=== PATIENT | male | born 1965 | race African-American/Black ===

== ENCOUNTER → 2016-10-15 | Outpatient (CLI) | payer OTHER ==
[~2016-10-15] MED LIST: AMIT25TA PO; ASPI32ECTA PO; ATOR1TAB18 PO; CELE-19 PO; CHLO0.124 MT; CHLO125TA PO; CLAR10CA3 PO; DIVA500T3 PO; GABA300C3 PO; HYDR25T PO; LISI2.5T3 PO; LYRI100C10 PO; METH25IN5 IJ; NITR4TASL SL; PRED5TA PO; SPIR25TA2 PO; [UNRECOGNIZED DRUG - CODE] SC; [UNRECOGNIZED DRUG - OTHER] TOP; tps cream TOP
== END ==
LOC: M LAB 07:44
PROVIDERS: ATTEND Specialist
DX: E29.1 Testicular hypofunction (principal)

== ENCOUNTER → 2016-11-16 | Outpatient (REF) | payer OTHER | LOC: M LAB REF 10:22 | PROVIDERS: ATTEND Physician Assistant | DX: R63.4 Abnormal weight loss (principal); D12.2 Benign neoplasm of ascending colon; B96.81 Helicobacter pylori [H. pylori] as the cause of diseases classified elsewhere; R14.0 Abdominal distension (gaseous) ==

== ENCOUNTER → 2016-12-13 | Outpatient (CLI) | payer OTHER | LOC: M LAB 07:44 | PROVIDERS: ATTEND Physician Assistant Medical | DX: R56.9 Unspecified convulsions (principal) ==

== ENCOUNTER → 2017-02-03 | Outpatient (CLI) | payer OTHER ==
[~2017-02-03] MED LIST changes: +GABA-282 PO; -GABA300C3 PO
== END ==
LOC: M LAB 08:11
PROVIDERS: ATTEND Physician Assistant Medical
DX: Z79.899 Other long term (current) drug therapy (principal); R56.9 Unspecified convulsions

== ENCOUNTER → 2017-02-03 | Outpatient (CLI) | payer OTHER ==
[2017-02-03 09:23] LABS: ALBUMIN 3.5 GM/DL (3.2-5.2); ALKALINE PHOSPHATASE 65 U/L (45-117); ALT/SGPT 21 U/L (12-78); ANION GAP 8 MEQ/L (8-16); AST/SGOT 16 U/L (15-37); BILIRUBIN,TOTAL 0.5 MG/DL (0.2-1.0); BLOOD UREA NITROGEN 11 MG/DL (7-18); CALCIUM LEVEL 8.6 MG/DL (8.5-10.1); CARBON DIOXIDE LEVEL 33 MEQ/L (21-32); CHLORIDE LEVEL 98 MEQ/L (98-107); CHOLESTEROL LEVEL 203 MG/DL (<200); CREATININE FOR GFR 0.97 MG/DL (0.70-1.30); GLOMERULAR FILTRATION RATE > 60.0 (>56); GLUCOSE, FASTING 79 MG/DL (70-105); POTASSIUM SERUM 3.9 MEQ/L (3.5-5.1); SODIUM LEVEL 139 MEQ/L (136-145); TOTAL PROTEIN 7.4 GM/DL (6.4-8.2); TRIGLYCERIDES LEVEL 62 MG/DL (<150)
== END ==
LOC: M LAB 08:07
PROVIDERS: ATTEND Physician Assistant
DX: E78.00 Pure hypercholesterolemia, unspecified (principal); I25.10 Atherosclerotic heart disease of native coronary artery without angina pectoris; R56.9 Unspecified convulsions; Z79.899 Other long term (current) drug therapy

== ENCOUNTER → 2017-04-13 | Outpatient (CLI) | payer OTHER ==
[~2017-04-13] MED LIST changes: +ASPI325T24 PO; -ASPI32ECTA PO; -ATOR1TAB18 PO; +ATOR80TA59 PO; -CELE-19 PO; +CELE1CAP4 PO; +HYDR-3363 PO; -HYDR25T PO; -LYRI100C10 PO; +PREG100CA PO
[2017-04-13 12:31] LABS: ADD MORPHOLOGY? YES; BASO % 0.6 % (0.0-1.0); EOS % 0.8 % (0.0-3.0); LARGE UNSTAINED CELL # 0.1 K/mm3 (0.0-0.4); LARGE UNSTAINED CELL % 2.6 % (0.0-4.0); LYMPH # 1.1 K/mm3 (1.5-4.5); LYMPH % 21.9 % (24.0-44.0); MEAN CORPUSCULAR HEMOGLOBIN 31.9 pg (27.0-33.0); MEAN CORPUSCULAR VOLUME 93.6 fl (80.0-96.0); MONO # 0.3 K/mm3 (0.0-0.8); MONO % 6.5 % (0.0-5.0); NEUTROPHILS # 3.3 K/mm3 (1.8-7.7); NEUTROPHILS % 67.6 % (36.0-66.0); PLATELET COUNT, AUTOMATED 139 k/mm3 (150-450); RED CELL DISTRIBUTION WIDTH 15.6 % (11.5-14.5); WHITE BLOOD COUNT 4.8 K/mm3 (4.0-10.0)
== END ==
LOC: M LAB 11:57
PROVIDERS: ATTEND Physician Assistant Medical
DX: Z79.899 Other long term (current) drug therapy (principal)

== ENCOUNTER → 2017-08-12 | Outpatient (CLI) | payer MEDICARE, OTHER ==
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
== END ==
LOC: M PAIN 08:30
PROVIDERS: ATTEND Anesthesiology
DX: M47.816 Spondylosis without myelopathy or radiculopathy, lumbar region (principal); M47.817 Spondylosis without myelopathy or radiculopathy, lumbosacral region; M79.1 Myalgia; M54.2 Cervicalgia; G57.93 Unspecified mononeuropathy of bilateral lower limbs; G89.29 Other chronic pain; Z79.82 Long term (current) use of aspirin; Z79.899 Other long term (current) drug therapy; Z95.5 Presence of coronary angioplasty implant and graft; Z87.820 Personal history of traumatic brain injury
CPT/HCPCS: 36415; 80053; 80061; G0463

== ENCOUNTER → 2017-08-12 | Outpatient (CLI) | payer MEDICARE, OTHER ==
[2017-08-12 08:44] LABS: ALBUMIN 3.4 GM/DL (3.2-5.2); ALBUMIN/GLOBULIN RATIO 0.68 (1.00-1.93); ALKALINE PHOSPHATASE 64 U/L (45-117); ALT/SGPT 45 U/L (12-78); ANION GAP 5 MEQ/L (8-16); AST/SGOT 44 U/L (7-37); BLOOD UREA NITROGEN 11 MG/DL (7-18); CALCIUM LEVEL 8.7 MG/DL (8.5-10.1); CARBON DIOXIDE LEVEL 31 MEQ/L (21-32); CHLORIDE LEVEL 100 MEQ/L (98-107); CHOLESTEROL LEVEL 169 MG/DL (<200); CREATININE FOR GFR 0.88 MG/DL (0.70-1.30); GLOMERULAR FILTRATION RATE > 60.0 (>56); GLUCOSE, FASTING 89 MG/DL (70-105); POTASSIUM SERUM 4.1 MEQ/L (3.5-5.1); SODIUM LEVEL 136 MEQ/L (136-145); TOTAL PROTEIN 8.4 GM/DL (6.4-8.2); TRIGLYCERIDES LEVEL 64 MG/DL (<150)
== END ==
LOC: M LAB 07:44
PROVIDERS: ATTEND Physician Assistant
DX: I25.10 Atherosclerotic heart disease of native coronary artery without angina pectoris (principal); E78.00 Pure hypercholesterolemia, unspecified

== ENCOUNTER → 2017-08-29 | Outpatient (CLI) | payer MEDICARE, OTHER ==
[~2017-08-29] MED LIST changes: +BUPIVACAINE HCL 0.25% 30 ML VIAL As Ordered ONE; +ISOVUE-M 300 61% 15ML VIAL (Q9967) As Ordered ONE; +LIDOCAINE 1% SDV INJ 30 ML VIAL As Ordered ONE
--- NOTE | 2017-08-29 10:40 | REP ---
Partial lumbar spine series: Three views . History: Injection procedure for pain. 43 seconds of fluoroscopy time is reported. Findings: A sequence of three fluoroscopically obtained last image hold procedural spot radiographs of the lumbar spine document needle position and contrast injection associated with injection procedure. Signed by Arnaldo Jansen MD 08/29/2017 10:32 A
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
== END ==
LOC: M PAIN 08:30
PROVIDERS: ATTEND Anesthesiology
DX: G89.29 Other chronic pain (principal); M47.816 Spondylosis without myelopathy or radiculopathy, lumbar region; M47.817 Spondylosis without myelopathy or radiculopathy, lumbosacral region; M54.5 Low back pain; E78.5 Hyperlipidemia, unspecified; Z79.82 Long term (current) use of aspirin; Z79.899 Other long term (current) drug therapy; Z98.61 Coronary angioplasty status
CPT/HCPCS: 64493; 64494; Q9967

== ENCOUNTER → 2017-10-05 | Outpatient (CLI) | payer MEDICARE, OTHER ==
[2017-10-05 14:11] LABS: VALPROIC ACID (DEPAKOTE) 76.9 UG/ML (50.0-100.0)
== END ==
LOC: M LAB 13:03
DX: R56.9 Unspecified convulsions (principal)
CPT/HCPCS: 80164

== ENCOUNTER → 2018-07-28 | Outpatient (CLI) | payer MEDICARE, OTHER ==
[2018-07-28 09:29] LABS: VALPROIC ACID (DEPAKOTE) 85.4 UG/ML (50.0-100.0)
== END ==
LOC: M LAB 08:42
DX: R56.9 Unspecified convulsions (principal)
CPT/HCPCS: 80164

== ENCOUNTER → 2018-08-02 | Outpatient (CLI) | payer MEDICARE, OTHER ==
[2018-08-02 22:28] LABS: ALBUMIN 3.5 GM/DL (3.2-5.2); ALBUMIN/GLOBULIN RATIO 0.74 (1.00-1.93); ALKALINE PHOSPHATASE 66 U/L (45-117); ALT/SGPT 23 U/L (12-78); ANION GAP 9 MEQ/L (8-16); AST/SGOT 30 U/L (7-37); BILIRUBIN,TOTAL 0.7 MG/DL (0.2-1.0); BLOOD UREA NITROGEN 12 MG/DL (7-18); CALCIUM LEVEL 9.1 MG/DL (8.5-10.1); CARBON DIOXIDE LEVEL 27 MEQ/L (21-32); CHLORIDE LEVEL 97 MEQ/L (98-107); CHOLESTEROL LEVEL 237 MG/DL (<200); CHOLESTEROL RISK RATIO 2.604 (<5); CREATININE FOR GFR 0.94 MG/DL (0.70-1.30); GLOMERULAR FILTRATION RATE > 60.0 (>56); GLUCOSE, FASTING 83 MG/DL (70-100); HDL CHOLESTEROL 91 MG/DL (>40); LDL CHOLESTEROL 131 MG/DL (<100); NON-HDL-C 146 MG/DL; POTASSIUM SERUM 3.9 MEQ/L (3.5-5.1); SODIUM LEVEL 133 MEQ/L (136-145); TOTAL PROTEIN 8.2 GM/DL (6.4-8.2); TRIGLYCERIDES LEVEL 73 MG/DL (<150)
== END ==
LOC: M LAB 21:47
DX: I25.10 Atherosclerotic heart disease of native coronary artery without angina pectoris (principal); E78.00 Pure hypercholesterolemia, unspecified
CPT/HCPCS: 80053

== ENCOUNTER 2019-01-15 16:15 | Emergency (ER) | payer MEDICARE, OTHER ==
[~2019-01-15] VITALS: Ht 167.6 cm; Wt 63.6 kg
[~2019-01-15 16:15] MED LIST changes: +ASPI-255 PO; -ASPI325T24 PO; -BUPIVACAINE HCL 0.25% 30 ML VIAL As Ordered ONE; -DIVA500T3 PO; +DIVA500T94 PO; -GABA-282 PO; +GABA-843 PO; -ISOVUE-M 300 61% 15ML VIAL (Q9967) As Ordered ONE; -LIDOCAINE 1% SDV INJ 30 ML VIAL As Ordered ONE; +LISI-1046 PO; -LISI2.5T3 PO; +SPIR-10 PO; -SPIR25TA2 PO
[2019-01-15 16:16] VITALS: BP 103/59
[2019-01-15] MEDS ORDERED: REST0.05 (16:22)
[2019-01-15] MEDS ORDERED: NEOSPORIN OINT 0.9 GM PKT (FLOOR STOCK) TOP ONE (17:15)
== END 2019-01-15 17:35 | disposition home or self-care (01) ==
LOC: M ED 16:15
DX: Z48.02 Encounter for removal of sutures (principal); G62.9 Polyneuropathy, unspecified; E78.00 Pure hypercholesterolemia, unspecified; Z79.899 Other long term (current) drug therapy; Z79.82 Long term (current) use of aspirin

== ENCOUNTER → 2019-02-06 | Outpatient (CLI) | payer MEDICARE, OTHER ==
[~2019-02-06] MED LIST changes: +REST0.05
[2019-02-06 14:05] LABS: ALBUMIN 3.6 GM/DL (3.2-5.2); ALT/SGPT 48 U/L (12-78); BILIRUBIN,TOTAL 0.5 MG/DL (0.2-1.0); BLOOD UREA NITROGEN 12 MG/DL (7-18); CALCIUM LEVEL 8.4 MG/DL (8.5-10.1); CARBON DIOXIDE LEVEL 30 MEQ/L (21-32); CHLORIDE LEVEL 103 MEQ/L (98-107); CHOLESTEROL LEVEL 199 MG/DL (<200); CHOLESTEROL RISK RATIO 3.015 (<5); CREATININE FOR GFR 0.99 MG/DL (0.70-1.30); GLOMERULAR FILTRATION RATE > 60.0 (>56); GLUCOSE, FASTING 78 MG/DL (70-100); HDL CHOLESTEROL 66 MG/DL (>40); LDL CHOLESTEROL 103 MG/DL (<100); NON-HDL-C 133 MG/DL; POTASSIUM SERUM 4.6 MEQ/L (3.5-5.1); SODIUM LEVEL 141 MEQ/L (136-145); TOTAL PROTEIN 8.5 GM/DL (6.4-8.2); TRIGLYCERIDES LEVEL 152 MG/DL (<150)
== END ==
LOC: M LAB 12:43
PROVIDERS: ATTEND Physician Assistant
DX: I25.10 Atherosclerotic heart disease of native coronary artery without angina pectoris (principal); E78.00 Pure hypercholesterolemia, unspecified

== ENCOUNTER 2019-02-14 03:49 | Emergency (ER) | payer MEDICARE, OTHER ==
[2019-02-14 04:24] LABS: BASO % 0.7 % (0.0-1.0); EOS % 0.6 % (0.0-3.0); HEMATOCRIT 43.3 % (42.0-52.0); HEMOGLOBIN 14.6 g/dl (13.5-17.5); LYMPH # 2.2 10^3/uL (1.5-4.5); LYMPH % 40.4 % (24.0-44.0); MEAN CORPUSCULAR HEMOGLOBIN 32.3 pg (27.0-33.0); MEAN CORPUSCULAR HGB CONC 33.7 g/dl (32.0-36.5); MEAN CORPUSCULAR VOLUME 95.8 fl (80.0-96.0); MONO # 0.6 10^3/uL (0.0-0.8); MONO % 10.3 % (0.0-5.0); NEUTROPHILS # 2.6 10^3/uL (1.8-7.7); NEUTROPHILS % 47.8 % (36.0-66.0); PLATELET COUNT, AUTOMATED 127 10^3/uL (150-450); RED BLOOD COUNT 4.52 10^6/uL (4.30-6.10); WHITE BLOOD COUNT 5.4 10^3/uL (4.0-10.0)
[2019-02-14] MEDS ORDERED: NS 1,000 ML IV SCH (04:29)
[2019-02-14 04:35] LABS: INR 0.97
[2019-02-14 04:36] LABS: PARTIAL THROMBOPLASTIN TIME 24.9 SECONDS (25.4-37.6)
[2019-02-14] MEDS ORDERED: LIDO1PAD TOP (04:55)
[2019-02-14] MEDS ORDERED: [UNRECOGNIZED DRUG - CODE] IV (04:55)
[2019-02-14] MEDS ORDERED: DULO1CAP3 PO (04:55)
[2019-02-14] MEDS ORDERED: EZET10TA PO (04:55)
[2019-02-14] MEDS ORDERED: FOLI1TAB11 PO (04:55)
[2019-02-14] MEDS ORDERED: SILD50TA PO (04:55)
[2019-02-14] MEDS ORDERED: ACET1TAB55 PO (04:55)
[2019-02-14] MEDS ORDERED: ROSU10TA5 PO (04:55)
[2019-02-14] MEDS ORDERED: CALALOT4 TOP (04:55)
[2019-02-14] MEDS ORDERED: MECL1CHW PO (04:55)
[2019-02-14] MEDS ORDERED: ROPI0.5T PO (04:55)
[2019-02-14 04:58] LABS: BLOOD UREA NITROGEN 14 MG/DL (7-18); CALCIUM LEVEL 8.5 MG/DL (8.5-10.1); CARBON DIOXIDE LEVEL 24 MEQ/L (21-32); CHLORIDE LEVEL 90 MEQ/L (98-107); CREATININE FOR GFR 1.26 MG/DL (0.70-1.30); FREE T4 1.06 NG/DL (0.76-1.46); GLOMERULAR FILTRATION RATE > 60.0 (>56); GLUCOSE, FASTING 162 MG/DL (70-100); MAGNESIUM LEVEL 2.4 MG/DL (1.8-2.4); POTASSIUM SERUM 3.8 MEQ/L (3.5-5.1); SODIUM LEVEL 132 MEQ/L (136-145); VALPROIC ACID (DEPAKOTE) 6.2 UG/ML (50.0-100.0)
[2019-02-14] MEDS ORDERED: ASPIRIN 325 MG TAB PO ONE (05:15)
[2019-02-14 05:35] LABS: AMPHETAMINES LEVEL URINE NEGATIVE (NEGATIVE); BARBITURATES URINE NEGATIVE (NEGATIVE); BENZODIAZEPINES URINE NEGATIVE (NEGATIVE); CANNABINOIDS URINE NEGATIVE (NEGATIVE); COCAINE METABOLITE URINE NEGATIVE (NEGATIVE); METHADONE URINE NEGATIVE (NEGATIVE); OPIATES URINE NEGATIVE (NEGATIVE); PHENCYCLIDINE URINE NEGATIVE (NEGATIVE)
[2019-02-14] MEDS ORDERED: DIVALPROEX 500 MG TAB PO ONE (06:15)
[2019-02-14 06:24] VITALS: BP 126/81
--- NOTE | 2019-02-14 13:32 | ECGEPIP ---
Stationary ECG Study [facility] - ED Test Date: 2019-02-14 Pat Name: JOHN GROSSMAN Department: Room: - Gender: M Quality Assistant: lisa : 1965 Requested By: MARJORIE Murrell Order Number: [id number] Reading MD: Mel Au Measurements Intervals [place] Rate: 102 P: 81 IA: 157 QRS: 72 QRSD: 86 T: 68 QT: 333 QTc: 435 Interpretive Statements SINUS TACHYCARDIA NONSPECIFIC T-WAVE ABNORMALITY ABNORMAL RHYTHM ECG SIMILAR 12/09/14 Electronically Signed On 02-14-2019 13:32:30 EDT by Mel Au
== END 2019-02-14 06:32 | disposition home or self-care (01) ==
LOC: M ED 03:49
DX: G40.909 Epilepsy, unspecified, not intractable, without status epilepticus (principal); R00.0 Tachycardia, unspecified; R94.31 Abnormal electrocardiogram [ECG] [EKG]; I25.10 Atherosclerotic heart disease of native coronary artery without angina pectoris; I10 Essential (primary) hypertension; G62.9 Polyneuropathy, unspecified; D86.9 Sarcoidosis, unspecified; Z79.82 Long term (current) use of aspirin; Z79.899 Other long term (current) drug therapy

== ENCOUNTER 2019-05-02 18:46 | Emergency (ER) | payer MEDICARE, OTHER ==
[~2019-05-02] VITALS: Ht 165.1 cm; Wt 63.6 kg
[~2019-05-02 18:46] MED LIST changes: +ACET1TAB55 PO; +CALALOT4 TOP; +DULO1CAP6 PO; +EZET10TA21 PO; +FOLI1TAB11 PO; +LIDO1PAD TOP; +MECL1CHW PO; +ROPI0.5T PO; +ROSU10TA6 PO; +SILD50TA PO; +[UNRECOGNIZED DRUG - CODE] IV
[2019-05-02] MEDS ORDERED: NS 1,000 ML IV ONE (19:30)
[2019-05-02 19:34] LABS: BASO % 0.5 % (0.0-1.0); EOS % 0.1 % (0.0-3.0); HEMATOCRIT 48.4 % (42.0-52.0); HEMOGLOBIN 15.2 g/dl (13.5-17.5); LYMPH # 1.7 10^3/uL (1.5-4.5); LYMPH % 21.9 % (24.0-44.0); MEAN CORPUSCULAR HEMOGLOBIN 32.1 pg (27.0-33.0); MEAN CORPUSCULAR HGB CONC 31.4 g/dl (32.0-36.5); MEAN CORPUSCULAR VOLUME 102.3 fl (80.0-96.0); MONO # 0.8 10^3/uL (0.0-0.8); MONO % 9.7 % (0.0-5.0); NEUTROPHILS # 5.3 10^3/uL (1.8-7.7); NEUTROPHILS % 67.4 % (36.0-66.0); PLATELET COUNT, AUTOMATED 130 10^3/uL (150-450); RED BLOOD COUNT 4.73 10^6/uL (4.30-6.10); WHITE BLOOD COUNT 7.9 10^3/uL (4.0-10.0)
[2019-05-02 19:54] LABS: BLOOD UREA NITROGEN 9 MG/DL (7-18); CALCIUM LEVEL 9.1 MG/DL (8.5-10.1); CARBON DIOXIDE LEVEL 10 MEQ/L (21-32); CHLORIDE LEVEL 92 MEQ/L (98-107); CREATININE FOR GFR 1.79 MG/DL (0.70-1.30); GLOMERULAR FILTRATION RATE 51.1 (>56); GLUCOSE, FASTING 228 MG/DL (70-100); POTASSIUM SERUM 3.5 MEQ/L (3.5-5.1); SODIUM LEVEL 133 MEQ/L (136-145); VALPROIC ACID (DEPAKOTE) 4.7 UG/ML (50.0-100.0)
[2019-05-02] MEDS ORDERED: MULTIVITAMIN -ADULT INJECTION 10 ML, THIAMINE INJection 100 MG, FOLIC ACID 1 MG in NS 1... IV ONE (20:00)
[2019-05-02] MEDS ORDERED: VALPROATE SOD INJ 1,000 MG in D5W 50 ML IV ONE (20:00)
--- NOTE | 2019-05-02 20:02 | ECGEPIP ---
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
[2019-05-02 20:18] LABS: ETHYL ALCOHOL (ETHANOL) < 0.003 % (0.000-0.010)
[2019-05-02 22:00] VITALS: BP 145/87
== END 2019-05-02 22:17 | disposition home or self-care (01) ==
LOC: M ED 18:46
DX: G40.909 Epilepsy, unspecified, not intractable, without status epilepticus (principal); Z91.14 Patient's other noncompliance with medication regimen; R00.0 Tachycardia, unspecified; I51.7 Cardiomegaly; I10 Essential (primary) hypertension; Z86.59 Personal history of other mental and behavioral disorders; Z79.82 Long term (current) use of aspirin; Z79.899 Other long term (current) drug therapy
CPT/HCPCS: 80048; 80164; 85025; 93005; 96365; 96366; 96368; 99284; G0480; J3411

== ENCOUNTER → 2019-05-09 | Outpatient (CLI) | payer MEDICARE, OTHER ==
[~2019-05-09] MED LIST changes: +DEPA1TAB3 PO
--- NOTE | 2019-05-09 09:43 | REP ---
PARTIAL LUMBAR SPINE, TWO VIEWS: HISTORY: Disc symptoms. There is no acute fracture or subluxation. The L3-4 and L4-5 intervertebral discs are decreased in height consistent with disc degeneration. Osteophytes are present on L2-4. IMPRESSION: Degenerative change as described above. Electronically Signed by Mynor Gama MD 05/09/2019 09:49 A
--- NOTE | 2019-05-09 09:43 | REP ---
THORACIC SPINE, TWO VIEWS: HISTORY: Disc symptoms. There is no acute fracture or subluxation. The intervertebral discs are normal in height. IMPRESSION: There is no acute fracture or subluxation. Electronically Signed by Mynor Gama MD 05/09/2019 09:49 A
--- NOTE | 2019-05-09 09:45 | REP ---
PARTIAL CERVICAL SPINE, TWO VIEWS: HISTORY: Disc symptoms. There is no acute fracture or subluxation. The C5-6 and C6-7 intervertebral discs are decreased in height consistent with disc degeneration. Osteophytes are present on C5-7. There is loss of the normal lordotic curve. IMPRESSION: Degenerative change as described above. Electronically Signed by Mynor Gama MD 05/09/2019 09:49 A
== END ==
LOC: M RAD 08:01
PROVIDERS: ATTEND Chiropractor
DX: M25.78 Osteophyte, vertebrae (principal); M50.323 Other cervical disc degeneration at C6-C7 level; M51.36 Other intervertebral disc degeneration, lumbar region; M50.322 Other cervical disc degeneration at C5-C6 level

== ENCOUNTER → 2019-05-12 | Outpatient (CLI) | payer MEDICARE, OTHER | LOC: M LAB 11:18 | PROVIDERS: ATTEND Physician Assistant Medical | DX: G40.89 Other seizures (principal) ==

== ENCOUNTER 2019-08-27 13:43 | Emergency (ER) | payer MEDICARE, OTHER ==
[~2019-08-27] VITALS: Ht 167.6 cm; Wt 88.2 kg
[~2019-08-27 13:43] MED LIST changes: -DEPA1TAB3 PO
[2019-08-27 14:23] LABS: BASO % 0.5 % (0.0-1.0); EOS % 0.2 % (0.0-3.0); HEMATOCRIT 41.9 % (42.0-52.0); HEMOGLOBIN 13.7 g/dl (13.5-17.5); LYMPH % 33.1 % (24.0-44.0); MEAN CORPUSCULAR HEMOGLOBIN 30.9 pg (27.0-33.0); MEAN CORPUSCULAR HGB CONC 32.7 g/dl (32.0-36.5); MEAN CORPUSCULAR VOLUME 94.6 fl (80.0-96.0); PLATELET COUNT, AUTOMATED 132 10^3/uL (150-450); RED BLOOD COUNT 4.43 10^6/uL (4.30-6.10); WHITE BLOOD COUNT 5.7 10^3/uL (4.0-10.0)
[2019-08-27 14:24] LABS: LYMPH # 1.9 10^3/uL (1.5-5.0); MONO # 0.6 10^3/uL (0.0-0.8); NEUTROPHILS # 3.2 10^3/uL (1.5-8.5)
[2019-08-27 15:04] LABS: BLOOD UREA NITROGEN 6 MG/DL (7-18); CALCIUM LEVEL 9.2 MG/DL (8.5-10.1); CARBON DIOXIDE LEVEL 31 MEQ/L (21-32); CHLORIDE LEVEL 97 MEQ/L (98-107); CREATININE FOR GFR 0.94 MG/DL (0.70-1.30); ETHYL ALCOHOL (ETHANOL) < 0.003 % (0.000-0.010); FREE T4 0.87 NG/DL (0.76-1.46); GLOMERULAR FILTRATION RATE > 60.0 (>56); GLUCOSE, FASTING 110 MG/DL (70-100); MAGNESIUM LEVEL 1.4 MG/DL (1.8-2.4); POTASSIUM SERUM 3.9 MEQ/L (3.5-5.1); SODIUM LEVEL 136 MEQ/L (136-145); VALPROIC ACID (DEPAKOTE) 16.2 UG/ML (50.0-100.0)
--- NOTE | 2019-08-27 15:24 | REP ---
CT brain without contrast: History: Syncope. Comparison brain CT studies are from August 07, 2011 and September 02, 2008. Comparison MRI study January 17, 2012. CT findings: Digital preliminary ramp manager radiograph is unremarkable. Bone window settings demonstrate an intact bony calvarium. Visualized paranasal sinuses are clear. There is vascular calcification bilaterally in the distal carotid arteries. There is a small area of old encephalomalacia in the right inferior frontal lobe unchanged from multiple prior studies. There is mild generalized volume loss also unchanged. There is no evidence of intracranial hemorrhage. No new infarction is seen. No mass, extra-axial fluid collection, or midline shift is observed. The brain parenchyma is unchanged from August 07, 2011 and September 2008 prior studies. Impression: Small stable area of old encephalomalacia right inferior frontal lobe. Mild vascular calcification. No acute intracranial abnormality. Electronically Signed by Arnaldo Jansen MD 08/27/2019 03:50 P
[2019-08-27] MEDS ORDERED: DIVALPROEX 500 MG TAB PO ONE (16:15)
[2019-08-27 16:38] VITALS: BP 149/93
[2019-08-27 16:44] LABS: AMPHETAMINES LEVEL URINE NEGATIVE (NEGATIVE); BARBITURATES URINE NEGATIVE (NEGATIVE); BENZODIAZEPINES URINE NEGATIVE (NEGATIVE); CANNABINOIDS URINE NEGATIVE (NEGATIVE); COCAINE METABOLITE URINE NEGATIVE (NEGATIVE); METHADONE URINE NEGATIVE (NEGATIVE); OPIATES URINE NEGATIVE (NEGATIVE); PHENCYCLIDINE URINE NEGATIVE (NEGATIVE)
[2019-08-27] MEDS ORDERED: DEPA1TAB3 PO (17:15)
--- NOTE | 2019-08-27 19:57 | ECGEPIP ---
[facility] - ED Test Date: 2019-08-27 Pat Name: JOHN GROSSMAN Department: Room: - Gender: Male Park Attendant: CT : 1965 Requested By: Lila Bejarano PA-C Order Number: [id number] Reading MD: Rogelio Fernández Measurements Intervals [place] Rate: 88 P: 75 CA: 158 QRS: 69 QRSD: 85 T: 61 QT: 369 QTc: 447 Interpretive Statements SINUS RHYTHM NONSPECIFIC T-WAVE ABNORMALITY RATE CHANGE COMPARED TO 05/02/19 Electronically Signed on 08-27-2019 19:57:35 EST by Rogelio Fernández
== END 2019-08-27 17:18 | disposition home or self-care (01) ==
LOC: M ED 13:43
DX: G40.909 Epilepsy, unspecified, not intractable, without status epilepticus (principal); Z87.820 Personal history of traumatic brain injury; F10.10 Alcohol abuse, uncomplicated; Z79.899 Other long term (current) drug therapy; Z79.82 Long term (current) use of aspirin
CPT/HCPCS: 70450; 80048; 80164; 80307; 83735; 84439; 84443; 85025; 93005; 99284; G0480

== ENCOUNTER → 2019-10-22 | Outpatient (CLI) | payer MEDICARE, OTHER ==
[~2019-10-22] MED LIST changes: +DEPA1TAB3 PO
[2019-10-22 14:43] LABS: ALBUMIN 3.7 GM/DL (3.2-5.2); ALT/SGPT 49 U/L (12-78); BILIRUBIN,TOTAL 0.7 MG/DL (0.2-1.0); BLOOD UREA NITROGEN 10 MG/DL (7-18); CALCIUM LEVEL 8.6 MG/DL (8.5-10.1); CARBON DIOXIDE LEVEL 28 MEQ/L (21-32); CHLORIDE LEVEL 96 MEQ/L (98-107); CHOLESTEROL LEVEL 262 MG/DL (<200); CHOLESTEROL RISK RATIO 2.701 (<5); CREATININE FOR GFR 1.17 MG/DL (0.70-1.30); GLOMERULAR FILTRATION RATE > 60.0 (>56); GLUCOSE, FASTING 85 MG/DL (70-100); HDL CHOLESTEROL 97 MG/DL (>40); LDL CHOLESTEROL 145 MG/DL (<100); NON-HDL-C 165 MG/DL; POTASSIUM SERUM 3.9 MEQ/L (3.5-5.1); SODIUM LEVEL 136 MEQ/L (136-145); TOTAL PROTEIN 8.9 GM/DL (6.4-8.2); TRIGLYCERIDES LEVEL 101 MG/DL (<150)
== END ==
LOC: M LAB 13:17
PROVIDERS: ATTEND Physician Assistant
DX: I10 Essential (primary) hypertension (principal); G40.909 Epilepsy, unspecified, not intractable, without status epilepticus

== ENCOUNTER → 2019-10-22 | Outpatient (CLI) | payer MEDICARE, OTHER | LOC: M LAB 13:25 | PROVIDERS: ATTEND Physician Assistant Medical | DX: G40.909 Epilepsy, unspecified, not intractable, without status epilepticus (principal) ==

== ENCOUNTER 2019-11-15 11:38 | Emergency (ER) | payer MEDICARE, OTHER ==
[~2019-11-15] VITALS: Ht 180.3 cm; Wt 65.7 kg
[~2019-11-15 11:38] MED LIST changes: -ROPI0.5T PO; +ROPI0.5T3 PO
--- NOTE | 2019-11-15 12:36 | REP ---
Clinical: Trauma. Technique: Axial noncontrast images from the skull base to the thoracic inlet with coronal and sagittal re-formations. Findings: Straightening of normal lordosis noted along with early advanced degenerative disc osteophyte complex at C5-6 and C6-7. No acute fracture / compression injury or subluxation. Posterior elements and spinous processes are intact. Paravertebral soft tissues are normal. Impression: Degenerative changes primarily involving C5-6 seven and C6-7. No acute fracture / compression injury or subluxation. Electronically Signed by Jason Hahn MD 11/15/2019 12:27 P
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
[2019-11-15 13:53] LABS: BASO # 0.1 10^3/uL (0.0-0.2); BASO % 1.1 % (0.0-1.0); EOS % 0.2 % (0.0-3.0); HEMATOCRIT 40.2 % (42.0-52.0); HEMOGLOBIN 13.4 g/dl (13.5-17.5); LYMPH # 2.5 10^3/uL (1.5-5.0); LYMPH % 53.5 % (24.0-44.0); MEAN CORPUSCULAR HEMOGLOBIN 32.8 pg (27.0-33.0); MEAN CORPUSCULAR HGB CONC 33.3 g/dl (32.0-36.5); MEAN CORPUSCULAR VOLUME 98.5 fl (80.0-96.0); MONO # 0.8 10^3/uL (0.0-0.8); MONO % 16.3 % (0.0-5.0); NEUTROPHILS # 1.3 10^3/uL (1.5-8.5); NEUTROPHILS % 28.7 % (36.0-66.0); PLATELET COUNT, AUTOMATED 266 10^3/uL (150-450); RED BLOOD COUNT 4.08 10^6/uL (4.30-6.10); WHITE BLOOD COUNT 4.7 10^3/uL (4.0-10.0)
[2019-11-15 14:13] LABS: BLOOD UREA NITROGEN 10 MG/DL (7-18); CALCIUM LEVEL 8.7 MG/DL (8.5-10.1); CARBON DIOXIDE LEVEL 33 MEQ/L (21-32); CHLORIDE LEVEL 102 MEQ/L (98-107); CREATININE FOR GFR 1.06 MG/DL (0.70-1.30); ETHYL ALCOHOL (ETHANOL) 0.392 % (0.000-0.010); GLOMERULAR FILTRATION RATE > 60.0 (>56); GLUCOSE, FASTING 89 MG/DL (70-100); POTASSIUM SERUM 4.2 MEQ/L (3.5-5.1); SODIUM LEVEL 141 MEQ/L (136-145); VALPROIC ACID (DEPAKOTE) 69.7 UG/ML (50.0-100.0)
[2019-11-15] MEDS ORDERED: NS 1,000 ML IV ONE (14:15)
[2019-11-15 17:23] VITALS: BP 145/69
--- NOTE | 2019-11-16 04:54 | ECGEPIP ---
[facility] - ED Test Date: 2019-11-15 Pat Name: JOHN GROSSMAN Department: Room: - Gender: Male Toe Stapler: maxwell : 1965 Requested By: Rogelio Chao Order Number: [id number] Reading MD: Seth Soliman Measurements Intervals [place] Rate: 90 P: 69 [place]: 244 QRS: 64 QRSD: 101 T: 54 QT: 346 QTc: 424 Interpretive Statements SINUS RHYTHM WITH FIRST DEGREE AV BLOCK Inferior Q waves of uncertain significance Nonspecific T wave abnormality Similar to tracing done 08-27-19 Electronically Signed on 11-16-2019 4:54:28 EST by Seth Soliman
== END 2019-11-15 17:25 | disposition home or self-care (01) ==
LOC: M ED 11:38 → EDBD 11:38 → M ED 17:25
DX: F10.129 Alcohol abuse with intoxication, unspecified (principal); S01.81XA Laceration without foreign body of other part of head, initial encounter; W18.39XA Other fall on same level, initial encounter; Y92.89 Other specified places as the place of occurrence of the external cause; G40.909 Epilepsy, unspecified, not intractable, without status epilepticus; I10 Essential (primary) hypertension; Z79.899 Other long term (current) drug therapy; Z79.82 Long term (current) use of aspirin
CPT/HCPCS: 12013; 36415; 70450; 72125; 80048; 80164; 81001; 85025; 93005; 93041; 99284; G0480

== ENCOUNTER 2019-11-26 09:32 | Emergency (ER) | payer MEDICARE, OTHER ==
[~2019-11-26] VITALS: Ht 167.6 cm; Wt 66.6 kg
--- NOTE | 2019-11-26 10:43 | REP ---
Right tibia-fibula four views : There is no fracture or dislocation. Mineralization and joint spaces are normal. There are no calcifications or foreign bodies. Impression: Negative right tibia-fibula . Electronically Signed by Charan Mcpherson MD 11/26/2019 10:35 A
--- NOTE | 2019-11-26 11:06 | REP ---
Ankle four views: There is soft tissue edema circumferentially. Mineralization is normal. There is no fracture or dislocation. The joint spaces are unremarkable. There is no mortise widening. There are no calcifications or foreign bodies. Impression: Soft tissue edema. No fracture. Electronically Signed by Charan Mcpherson MD 11/26/2019 10:58 A
--- NOTE | 2019-11-26 11:34 | REP ---
Right lower extremity deep vein duplex ultrasonography: The deep veins demonstrate normal compression, normal Doppler color flow and normal Doppler waveforms with respiration and augmentation from the popliteal vein to the common femoral vein. Impression: There is no right lower extremity deep vein thrombus. Electronically Signed by Charan Mcpherson MD 11/26/2019 11:25 A
[2019-11-26 12:25] LABS: BASO % 0.8 % (0.0-1.0); EOS % 0.5 % (0.0-3.0); HEMATOCRIT 38.3 % (42.0-52.0); HEMOGLOBIN 12.5 g/dl (13.5-17.5); LYMPH # 1.6 10^3/uL (1.5-5.0); LYMPH % 42.1 % (24.0-44.0); MEAN CORPUSCULAR HEMOGLOBIN 32.5 pg (27.0-33.0); MEAN CORPUSCULAR HGB CONC 32.6 g/dl (32.0-36.5); MEAN CORPUSCULAR VOLUME 99.5 fl (80.0-96.0); MONO # 0.4 10^3/uL (0.0-0.8); MONO % 11.4 % (0.0-5.0); NEUTROPHILS # 1.7 10^3/uL (1.5-8.5); NEUTROPHILS % 44.9 % (36.0-66.0); PLATELET COUNT, AUTOMATED 173 10^3/uL (150-450); RED BLOOD COUNT 3.85 10^6/uL (4.30-6.10); WHITE BLOOD COUNT 3.8 10^3/uL (4.0-10.0)
[2019-11-26 12:52] LABS: ALBUMIN 3.3 GM/DL (3.2-5.2); ALT/SGPT 24 U/L (12-78); BILIRUBIN,DIRECT 0.2 MG/DL (0.0-0.2); BILIRUBIN,TOTAL 0.5 MG/DL (0.2-1.0); BLOOD UREA NITROGEN 8 MG/DL (7-18); C REACTIVE PROTEIN QUANTITATIV 0.64 MG/DL (0.00-0.30); CALCIUM LEVEL 8.8 MG/DL (8.5-10.1); CARBON DIOXIDE LEVEL 32 MEQ/L (21-32); CHLORIDE LEVEL 101 MEQ/L (98-107); CREATININE FOR GFR 0.95 MG/DL (0.70-1.30); GLOMERULAR FILTRATION RATE > 60.0 (>56); GLUCOSE, FASTING 79 MG/DL (70-100); POTASSIUM SERUM 4.1 MEQ/L (3.5-5.1); SODIUM LEVEL 138 MEQ/L (136-145); TOTAL PROTEIN 8.2 GM/DL (6.4-8.2)
[2019-11-26 13:00] LABS: ERYTHROCYTE SEDIMENTATION RATE 50 mm/hr (0-20)
[2019-11-26] MEDS ORDERED: NS 1,000 ML IV ONE (13:00)
[2019-11-26 14:43] VITALS: BP 141/84
== END 2019-11-26 15:13 | disposition home or self-care (01) ==
LOC: M ED 09:32
DX: S99.911A Unspecified injury of right ankle, initial encounter (principal); R60.0 Localized edema; W00.0XXA Fall on same level due to ice and snow, initial encounter; Y92.89 Other specified places as the place of occurrence of the external cause; R56.9 Unspecified convulsions; G62.9 Polyneuropathy, unspecified; Z87.820 Personal history of traumatic brain injury; Z79.899 Other long term (current) drug therapy; Z79.82 Long term (current) use of aspirin

== ENCOUNTER → 2019-11-28 | Outpatient (CLI) | payer MEDICARE, OTHER ==
--- NOTE | 2019-11-28 14:31 | REP ---
MRI RIGHT HIND FOOT AND ANKLE: HISTORY: Swelling and pain after a fall. Comparison radiographs are from November 26, 2019. TECHNIQUE: Axial, coronal and sagittal imaging planes are utilized. T1- and T2-weighted sequences are included with and without fat saturation. MRI FINDINGS: There is an obliquely oriented acute fracture of the distal fibula with 2 mm of posterior displacement, otherwise nondisplaced. There is associated soft-tissue swelling. There is mild marrow edema along the posterior surface of the distal tibia at the level of the ankle but no posterior tibial malleolar fracture is seen. No medial malleolar fracture is observed. The talar and calcaneal bone signal intensity is normal. No tarsal or metatarsal fracture is appreciated. The metatarsals and phalanges appear to be intact. There is an ankle joint effusion. The distal tips of the syndesmosis appears intact. There is some diffuse soft tissue edema in the distal calf circumferentially. There is some intramuscular edema in the distal calf as well. Peroneus longus and brevis tendons appear to be intact laterally. Tibialis posterior, flexor digitorum, and flexor hallicis longus tendons have an intact appearance medially. The Achilles tendon is unremarkable. Plantar fascia are smooth. The anterior talofibular ligament appears attenuated on T2-weighted scans. There is considerable surrounding edema. The posterior talofibular ligament has an intact appearance. Anterior inferior tibiofibular ligament is not well seen and may be disrupted. The posterior inferior tibiofibular ligament appears intact. Calcaneofibular ligament appears intact. Deltoid ligamentous complex is unremarkable. There is no osteochondral defect lesion in the tibial plafond or talar dome. IMPRESSION: Radiographically occult minimally displaced oblique fracture through the distal fibula. There is extensive edema in the distal calf and about the ankle. The ankle joint effusion is visible. There is evidence of partial tear of the anterior talofibular ligament. The anterior inferior tibiofibular ligament is poorly seen and may be disrupted as well. The distal tibiofibular syndesmosis appears to be intact. Electronically Signed by Arnaldo Jansen MD 11/28/2019 07:35 P
--- NOTE | 2019-11-28 14:39 | REP ---
MRI RIGHT CALF WITHOUT CONTRAST: HISTORY: Contusion right ankle. Comparison right tib/fib views November 26, 2019. TECHNIQUE: Axial coronal and sagittal T1- and T2-weighted scans were obtained. FINDINGS: There is diffuse edema throughout the subcutaneous space in the entire right calf from the knee to the ankle. There is some periosseous edema about the distal fibula and an obliquely oriented nondisplaced distal fibular fracture is seen. This was described in greater detail on the hind foot and ankle MRI study from this date. There is also some periosseous edema around the proximal fibula although no proximal fibular fracture is appreciated. I suspect a proximal fibular contusion as there is increased signal intensity on T2-weighted scans within the proximal fibula. No tibial fracture is appreciated. Skeletal muscle signal intensity is normal. IMPRESSION: Distal fibular fracture obliquely oriented. Bone contusion pattern in the proximal fibular head and proximal fibular diaphysis. No overt fracture seen proximally. No tibial fracture is appreciated. There is diffuse calf soft tissue swelling in the subcutaneous space circumferentially. Electronically Signed by Arnaldo Jansen MD 11/28/2019 07:35 P
== END ==
LOC: M RAD 11:48
PROVIDERS: ATTEND Orthopaedic Surgery Sports Medicine
DX: S90.01XA Contusion of right ankle, initial encounter (principal); W18.30XA Fall on same level, unspecified, initial encounter; Y92.9 Unspecified place or not applicable

== ENCOUNTER 2020-01-20 19:57 | Inpatient (IN) | payer MEDICARE, OTHER ==
[~2020-01-20] VITALS: Ht 167.6 cm; Wt 65.0 kg
[2020-01-20] MEDS ORDERED: MULTIVITAMIN -ADULT INJECTION 10 ML, THIAMINE INJection 100 MG, FOLIC ACID 1 MG in NS 1... IV ONE ×2 (20:00→23:30)
[2020-01-20] MEDS ORDERED: PHENobarbital INJ 65 MG/ML VIAL (J2560) IV STA ×3 (20:07→22:12)
[2020-01-20] MEDS ORDERED: ONDANSETRON 4MG/2ML VIAL As Ordered ONE (20:48)
[2020-01-20 20:49] LABS: BLOOD UREA NITROGEN 7 MG/DL (7-18); CALCIUM LEVEL 9.1 MG/DL (8.5-10.1); CARBON DIOXIDE LEVEL 13 MEQ/L (21-32); CHLORIDE LEVEL 94 MEQ/L (98-107); CREATININE FOR GFR 2.37 MG/DL (0.70-1.30); ETHYL ALCOHOL (ETHANOL) < 0.003 % (0.000-0.010); GLOMERULAR FILTRATION RATE 36.8 (>56); GLUCOSE, FASTING 172 MG/DL (70-100); POTASSIUM SERUM 5.3 MEQ/L (3.5-5.1); SODIUM LEVEL 131 MEQ/L (136-145); VALPROIC ACID (DEPAKOTE) 34.3 UG/ML (50.0-100.0)
[2020-01-20 20:59] LABS: BASO % 0.1 % (0.0-1.0); HEMATOCRIT 42.8 % (42.0-52.0); HEMOGLOBIN 14.4 g/dl (13.5-17.5); LYMPH # 0.3 10^3/uL (1.5-5.0); LYMPH % 2.2 % (24.0-44.0); MEAN CORPUSCULAR HEMOGLOBIN 31.9 pg (27.0-33.0); MEAN CORPUSCULAR HGB CONC 33.6 g/dl (32.0-36.5); MEAN CORPUSCULAR VOLUME 94.9 fl (80.0-96.0); MONO # 1.4 10^3/uL (0.0-0.8); MONO % 11.4 % (0.0-5.0); NEUTROPHILS # 10.1 10^3/uL (1.5-8.5); RED BLOOD COUNT 4.51 10^6/uL (4.30-6.10); WHITE BLOOD COUNT 11.9 10^3/uL (4.0-10.0)
[2020-01-20] MEDS ORDERED: ONDANSETRON 4MG/2ML VIAL IV ONE (21:00)
[2020-01-20] MEDS: VALPROIC ACID 250 MG CAP PO ONE ×2 (21:30→21:57)
--- NOTE | 2020-01-20 21:45 | REPVR ---
PROCEDURE INFORMATION: Exam: CT Head Without Contrast Exam date and time: 01/20/2020 9:33 PM Age: 54 years old Clinical indication: Pain; Headache; Additional info: Seiz TECHNIQUE: Imaging protocol: Computed tomography of the head without contrast. Radiation optimization: All CT scans at this facility use at least one of these dose optimization techniques: automated exposure control; mA and/or kV adjustment per patient size (includes targeted exams where dose is matched to clinical indication); or iterative reconstruction. COMPARISON: CT Head without contrast 11/15/2019 12:08 PM FINDINGS: Brain: No intracranial mass, mass effect or midline shift. No acute intracranial hemorrhage. No CT evidence of acute cortical infarct. Volume loss bilateral inferior frontal lobes likely prior trauma. Unchanged. Ventricles: Ventricles, cisterns, and sulci are normal in size for age. Bones/joints: No calvarial fracture or destructive process. Sinuses: Imaged paranasal sinuses are clear. Mastoid air cells: Mastoid air cells are normally aerated. Orbits: Imaged orbits are unremarkable. Soft tissues: No focal extracranial soft tissue swelling. IMPRESSION: 1. No acute or concerning focal intracranial abnormality. 2. Remote inferior frontal lobe volume loss bilaterally which may reflect posttraumatic encephalomalacia Electronically signed by: Evangelista Gomez On 01/20/2020 21:44:49 PM
[2020-01-20] MEDS ORDERED: VALPROATE SOD INJ 500 MG in D5W 50 ML IV ONE (22:15)
[2020-01-20 22:23] LABS: ALBUMIN 3.7 GM/DL (3.2-5.2); ALT/SGPT 81 U/L (12-78); BILIRUBIN,DIRECT < 0.1 MG/DL (0.0-0.2); BILIRUBIN,TOTAL 0.5 MG/DL (0.2-1.0); TOTAL PROTEIN 9.7 GM/DL (6.4-8.2)
[2020-01-20 22:32] LABS: MAGNESIUM LEVEL 3.8 MG/DL (1.8-2.4)
[2020-01-20 23:08] LABS: ACETONE/KETONE 6.09 MG/DL (<2.81); CALCIUM LEVEL 8.3 MG/DL (8.5-10.1); CREATININE FOR GFR 1.91 MG/DL (0.70-1.30); GLOMERULAR FILTRATION RATE 47.3 (>56); POTASSIUM SERUM 3.5 MEQ/L (3.5-5.1)
[2020-01-20] MEDS ORDERED: NS 1,000 ML IV SCH (23:27)
[2020-01-20] MEDS ORDERED: OXAZEPAM 10 MG CAP PO PRN (23:45)
[2020-01-20] MEDS ORDERED: LORazepam 2 MG/ML VIAL (J2060) IV PRN (23:45)
[2020-01-21] VITALS (7 sets, daily range): BP systolic 131–152; BP diastolic 66–95
[2020-01-21] MEDS ORDERED: ONDANSETRON 4MG/2ML VIAL IV ONE
[2020-01-21] MEDS ORDERED: ROSU40TA4 PO (00:04)
[2020-01-21] MEDS ORDERED: DIVA250T67 PO (00:04)
[2020-01-21] MEDS ORDERED: DIVA500T9 PO (00:04)
[2020-01-21] MEDS ORDERED: PATIENT COMMENTS (00:12)
[2020-01-21] MEDS ORDERED: DEXTROSE 50% 50 ML SYRINGE IV PRN (00:15)
[2020-01-21] MEDS ORDERED: GLUCAGON INJ 1MG VIAL SC PRN (00:15)
[2020-01-21] MEDS ORDERED: GLUCOSE 4GM CHEW TABLET PO PRN (00:15)
[2020-01-21] MEDS ORDERED: NITROGLYCERIN 0.4 MG SUBL TABLET SL PRN (00:30)
[2020-01-21] MEDS ORDERED: ACETAMINOPHEN 325 MG TAB PO PRN (00:30)
[2020-01-21] MEDS ORDERED: DIVA250T7 PO (00:45)
--- NOTE | 2020-01-21 00:46 | REPVR ---
PROCEDURE INFORMATION: Exam: US Retroperitoneal Limited, Kidneys Exam date and time: 01/21/2020 12:37 AM Age: 54 years old Clinical indication: Abnormal findings; Abnormal lab test; Abnormal kidney function lab tests; Additional info: Renal failure R/O hydronephrosis TECHNIQUE: Imaging protocol: Real-time ultrasound of the retroperitoneum with image documentation. Examination was focused on the kidneys. COMPARISON: No relevant prior studies available. FINDINGS: Right kidney measures 10.5 cm in length. Left kidney measures 11.1 cm in length. Renal parenchymal echotexture and cortical thickness are normal. No solid renal mass, cyst or hydronephrosis. No shadowing, echogenic foci suggestive of stones. Bladder is unremarkable. IMPRESSION: Unremarkable ultrasound of the kidneys and bladder. Electronically signed by: Evangelista Gomez On 01/21/2020 00:46:13 AM
[2020-01-21] MEDS: NS 1,000 ML IV SCH ×2 (01:08→09:17)
--- NOTE | 2020-01-21 02:14 | REP ---
Clinical: Seizures. Possible aspiration. Comparison: 04/07/2016. Findings: Chronic advanced emphysematous and pleuroparenchymal changes are again noted bilaterally and appear relatively similar to prior examination. No obvious acute focal consolidation or definite effusion. No pneumothorax. Mediastinum and cardiac silhouette are stable. Skeletal structures are intact. Impression: 1. Advanced emphysematous and pleuroparenchymal changes similar to prior examination. 2. No obvious focal consolidation or effusion. Electronically Signed by Jason Hahn MD 01/21/2020 02:05 A
[2020-01-21] MEDS ORDERED: ONDANSETRON 4MG/2ML VIAL IV PRN (04:00)
[2020-01-21 04:51] LABS: HEMATOCRIT 39.8 % (42.0-52.0); HEMOGLOBIN 13.8 g/dl (13.5-17.5); MEAN CORPUSCULAR HEMOGLOBIN 32.4 pg (27.0-33.0); MEAN CORPUSCULAR HGB CONC 34.7 g/dl (32.0-36.5); MEAN CORPUSCULAR VOLUME 93.4 fl (80.0-96.0); RED BLOOD COUNT 4.26 10^6/uL (4.30-6.10); WHITE BLOOD COUNT 9.1 10^3/uL (4.0-10.0)
[2020-01-21 05:14] LABS: PLATELET COUNT, AUTOMATED 51 10^3/uL (150-450)
[2020-01-21 05:19] LABS: HEMOGLOBIN A1c 4.9 %
[2020-01-21 05:20] LABS: BLOOD UREA NITROGEN 4 MG/DL (7-18); CALCIUM LEVEL 7.7 MG/DL (8.5-10.1); CARBON DIOXIDE LEVEL 26 MEQ/L (21-32); CHLORIDE LEVEL 104 MEQ/L (98-107); CHOLESTEROL LEVEL 250 MG/DL (<200); CHOLESTEROL RISK RATIO 1.953 (<5); CREATININE FOR GFR 1.37 MG/DL (0.70-1.30); GLOMERULAR FILTRATION RATE > 60.0 (>56); GLUCOSE, FASTING 84 MG/DL (70-100); HDL CHOLESTEROL 128 MG/DL (>40); LDL CHOLESTEROL 110 MG/DL (<100); NON-HDL-C 122 MG/DL; POTASSIUM SERUM 3.3 MEQ/L (3.5-5.1); SODIUM LEVEL 141 MEQ/L (136-145); THYROID STIMULATING HORMONE 0.423 uIU/ML (0.358-3.740); TRIGLYCERIDES LEVEL 61 MG/DL (<150); VALPROIC ACID (DEPAKOTE) 86.5 UG/ML (50.0-100.0)
[2020-01-21] MEDS ORDERED: POTASSIUM CHLORIDE 10 MEQ SR TABLET PO ONE (05:30)
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
[2020-01-21] MEDS: KCL 10MEQ/100ML SWI (KRUN) 10 MEQ in IV 1 EA IV SCH ×2 (09:17→10:28)
[2020-01-21] MEDS: ROSUVASTATIN 10 MG TAB (CRESTOR) PO SCH (09:21)
[2020-01-21] MEDS: DIVALPROEX 500MG *ER* TAB PO SCH ×2 (09:22→20:51)
[2020-01-21] MEDS: rOPINIRole 0.25 MG TAB(REQUIP) PO SCH ×2 (09:22→20:50)
[2020-01-21] MEDS: FOLIC ACID 1 MG TAB PO SCH (09:22)
[2020-01-21] MEDS: MULTIVITAMINS/MINERALS THERAP 1 TAB PO SCH (09:22)
[2020-01-21] MEDS: EZETIMIBE 10 MG TAB (ZETIA) PO SCH (09:22)
[2020-01-21] MEDS: ASPIRIN ENTERIC 325 MG TAB PO SCH (09:22)
[2020-01-21] MEDS: PREGABALIN 75 MG CAP(LYRICA) PO SCH ×2 (09:23→20:51)
[2020-01-21] MEDS: THIAMINE 100 MG TAB PO SCH (09:23)
[2020-01-21] MEDS: LORATADINE 10 MG TAB PO SCH (09:23)
[2020-01-21] MEDS: DIVALPROEX 250MG *ER* TAB PO SCH (09:39)
--- NOTE | 2020-01-21 10:08 | IPNPDOC ---
Subjective Date Seen The patient was seen on 01/21/20. Subjective Chief Complaint/HPI Patient is awake, alert, oriented 3. His speech, swallow was done today and restarted on feeding schedule for EEG today. No more seizures. Offers no new complaints General: Denies: ROS Unobtainable, Chills, Night Sweats, Fatigue, Malaise, Normal Appetite, Other Symptoms Constitutional: Denies: Chills, Fever, Malaise, Night Sweats, Weakness, Fatigue, Weight Loss, Lethargy, Other Eyes: Denies: Pain, Vision change, Conjunctivae inflammation, Eyelid inflammation, Redness, Other ENT: Denies: Head Aches, Ear Pain, Dysphagia, Sinus Congestion, Post Nasal Dr ip, Sore Throat, Epistaxis, Other Symptoms Pulmonary: Denies: Dyspnea, Cough, Pleuritic Chest Pain, Other Symptoms Cardiovascular: Denies: Chest Pain, Palpitations, Orthopnea, Paroxysmal Noc. Dyspnea, Edema, Lt Headedness, Other Symptoms Gastrointestinal: Denies: Nausea, Vomiting, Abdominal Pain, Diarrhea, Constipation, Melena, Hematochezia, Other Symptoms Musculoskeletal: Denies: Neck Pain, Back Pain, Shoulder Pain, Arm Pain, Hand Pain, Leg Pain, Foot Pain, Joint Pain, Muscle Pain, Spasms, Other Symptoms Neurological: Denies: Weakness, Numbness, Incoordination, Change in speech, Con fusion, Seizures, Other Symptoms Objective Physical Examination General Exam: Positive: Alert, Cooperative Eye Exam: Positive: PERRLA, Conjunctiva & lids normal ENT Exam: Positive: Atraumatic, Mucous membr. moist/pink Neck Exam: Positive: Supple Chest Exam: Positive: Clear to auscultation, Normal air movement Heart Exam: Positive: Rate Normal Abdomen Exam: Positive: Normal bowel sounds, Soft, Tenderness Extremity Exam: Positive: Normal pulses Skin Exam: Positive: Nl turgor and temperature Neuro Exam: Positive: Normal Speech, Strength at 5/5 X4 ext, Sensation Intact, Cranial Nerves 3-12 NL Psych Exam: Positive: Memory Intact, Oriented x 3 Assessment /Plan Problems (1) Alcohol withdrawal seizure with complication Status: Acute Problem Text: On admission, patient's valproic acid was very low. He was given phenobarbitone ED and also loaded with valproic acid 1 g Patient is currently on a telemetry unit being monitored clinically without any evidence of any new seizures He had a speech and swallow. Julianne has been started on soft diet as per orders Scheduled for EGD today On CIWA protocol with benzodiazepines Continue IV fluids. " banana bag", thiamine and multivitamin Possible discharge in the in 1-2 days Will order PT, OT evaluation today (2) Acute metabolic encephalopathy Status: Resolved Problem Text: Secondary to postictal state and alcohol induced seizures Patient is awake, alert, oriented 3 now and metabolic encephalopathy has resolved (3) Metabolic acidosis Status: Resolved Problem Text: Secondary to seizure episodes, but has completely resolved now Monitor serum electrolytes (4) JOSE DAVID (acute kidney injury) Status: Acute Problem Text: Most likely secondary to use of diuretics such as chlorthalidone and lisinopril and also vomiting and decreased oral intake Patient receive a hydration of normal saline 1 L in the ED His renal functions are improving. His BUN is 11, creatinine of 1.37 Continue IV fluids as per orders and repeat renal functions in a.m. (5) Alcohol abuse Status: Chronic Problem Text: History of alcohol abuse in the past and now Continue CIWA protocol as per orders Continue banana bag, thiamine, folic acid and multivitamin Plan/VTE VTE Prophylaxis Ordered?: Yes VS, I&O, 24H, Fishbone Vital Signs/I&O Vital Signs Date Time Temp Pulse Resp B/P (MAP) Pulse Ox O2 Delivery O2 Flow Rate FiO2 01/21/20 08:00 98.1 78 17 140/88 (105) 96 Room Air I&O- Last 24 Hours up to 6 AM 01/21/20 06:00 Intake Total 1566.2 ml Output Total 600 ml Balance 966.2 ml Laboratory Data 24H LABS Laboratory Tests 2 01/20/20 20:15: Anion Gap 24H, Glomerular Filtration Rate 36.8L, Calcium Level 9.1, Magnesium Level 3.8H, Total Bilirubin 0.5, Direct Bilirubin < 0.1, Aspartate Amino Transf (AST/SGOT) 293H, Alanine Aminotransferase (ALT/SGPT) 81H, Alkaline Phosphatase 115, Total Protein 9.7H, Albumin 3.7, Albumin/Globulin Ratio 0.62L, Valproic Acid (Depakene) Level 34.3L, Ethyl Alcohol Level < 0.003 01/20/20 20:51: Immature Granulocyte % (Auto) 1.3, Neutrophils (%) (Auto) 85.0H, Lymphocytes (%) (Auto) 2.2L, Monocytes (%) (Auto) 11.4H, Eosinophils (%) (Auto) 0.0, Basophils (%) (Auto) 0.1, Neutrophils # (Auto) 10.1H, Lymphocytes # (Auto) 0.3L, Monocytes # (Auto) 1.4H, Eosinophils # (Auto) 0.0, Basophils # (Auto) 0.0, Nucleated Red Blood Cells % (auto) 0.0 01/20/20 22:23: Anion Gap 16, Glomerular Filtration Rate 47.3L, Calcium Level 8.3L, Ammonia 13, B-Hydroxybutyrate 6.09H 01/21/20 04:07: Anion Gap 11, Glomerular Filtration Rate > 60.0, Calcium Level 7.7L, Valproic Ac id (Depakene) Level 86.5, Nucleated Red Blood Cells % (auto) 0.0, Immature Platelet Fraction 15.9H, Estimated Mean Plasma Glucose 94, Hemoglobin A1c 4.9, Triglycerides Level 61, Total Cholesterol 250H, LDL Cholesterol 110H, Non-HDL Cholesterol (LDL + VLDL) 122, Total HDL Cholesterol 128, Cholesterol/HDL Ratio 1.953, Thyroid Stimulating Hormone (TSH) 0.423 01/21/20 04:21: Bedside Glucose (Misc Panel) 84 CBC/BMP Laboratory Tests 01/20/20 20:15 01/20/20 20:51 01/20/20 22:23 01/21/20 04:07 MARLENE MAYERS MD Jan 21, 2020 10:08
[2020-01-21] MEDS ORDERED: OXAZEPAM 10 MG CAP PO PRN (14:00)
--- NOTE | 2020-01-21 19:06 | ECGEPIP ---
[facility] - ED Test Date: 2020-01-20 Pat Name: JOHN GROSSMAN Department: Room: [place] [address] Gender: Male Manager Regional: MAGALY : 1965 Requested By: CLOVER PRESCOTT Order Number: [id number] Reading MD: Mel Au Measurements Intervals [place] Rate: 107 P: 70 [place]: 171 QRS: 70 QRSD: 90 T: 23 QT: 329 QTc: 440 Interpretive Statements SINUS TACHYCARDIA POSSIBLE INFERIOR MYOCARDIAL INFARCTION, PROBABLY OLD ABNORMAL RHYTHM ECG INCREASED RATE 11/15/19 Electronically Signed on 01-21-2020 19:05:37 EDT by Mel Au
[2020-01-22] VITALS: BP 148/96
[2020-01-22] MEDS ORDERED: SLF 3 ML SYR IV PRN (00:15)
[2020-01-22 04:00] VITALS: BP 152/88
[2020-01-22 06:24] LABS: HEMATOCRIT 42.2 % (42.0-52.0); HEMOGLOBIN 13.7 g/dl (13.5-17.5); MEAN CORPUSCULAR HEMOGLOBIN 31.9 pg (27.0-33.0); MEAN CORPUSCULAR HGB CONC 32.5 g/dl (32.0-36.5); MEAN CORPUSCULAR VOLUME 98.1 fl (80.0-96.0); WHITE BLOOD COUNT 6.6 10^3/uL (4.0-10.0)
[2020-01-22] MEDS: SLF 3 ML SYR IV SCH ×2 (06:24→14:43)
[2020-01-22 06:39] LABS: BLOOD UREA NITROGEN 4 MG/DL (7-18); CALCIUM LEVEL 7.8 MG/DL (8.5-10.1); CARBON DIOXIDE LEVEL 28 MEQ/L (21-32); CHLORIDE LEVEL 102 MEQ/L (98-107); CREATININE FOR GFR 1.15 MG/DL (0.70-1.30); GLOMERULAR FILTRATION RATE > 60.0 (>56); GLUCOSE, FASTING 87 MG/DL (70-100); POTASSIUM SERUM 3.4 MEQ/L (3.5-5.1); SODIUM LEVEL 138 MEQ/L (136-145)
[2020-01-22 06:51] LABS: PLATELET COUNT, AUTOMATED 44 10^3/uL (150-450)
[2020-01-22] MEDS ORDERED: POTASSIUM CHLORIDE 10 MEQ SR TABLET PO ONE (07:45)
[2020-01-22 08:00] VITALS: BP 154/92
[2020-01-22] MEDS: PREGABALIN 75 MG CAP(LYRICA) PO SCH (08:50)
[2020-01-22] MEDS: ASPIRIN ENTERIC 325 MG TAB PO SCH (08:50)
[2020-01-22] MEDS: DIVALPROEX 500MG *ER* TAB PO SCH (08:50)
[2020-01-22] MEDS: DIVALPROEX 250MG *ER* TAB PO SCH (08:50)
[2020-01-22] MEDS: FOLIC ACID 1 MG TAB PO SCH (08:53)
[2020-01-22] MEDS: rOPINIRole 0.25 MG TAB(REQUIP) PO SCH (08:53)
[2020-01-22] MEDS: LORATADINE 10 MG TAB PO SCH (08:54)
[2020-01-22] MEDS: EZETIMIBE 10 MG TAB (ZETIA) PO SCH (08:54)
[2020-01-22] MEDS: MULTIVITAMINS/MINERALS THERAP 1 TAB PO SCH (08:54)
[2020-01-22] MEDS: THIAMINE 100 MG TAB PO SCH (08:54)
[2020-01-22] MEDS: ROSUVASTATIN 10 MG TAB (CRESTOR) PO SCH (08:54)
[2020-01-22] MEDS ORDERED: POTASSIUM CHLORIDE 10% LIQ 20 MEQ/15 ML UDC PO ONE (10:00)
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
== END 2020-01-22 15:05 | disposition home or self-care (01) | DRG 101 ==
LOC: EDBD 19:57 → M ED 19:57 → M ED INP 23:27 → ENRESERVDT 23:43 → ENRESERVTM 23:43 → M PCU 01-21 00:37
PROVIDERS: ADMIT General Practice; ATTEND Internal Medicine
DX: G40.909 Epilepsy, unspecified, not intractable, without status epilepticus (principal); N17.9 Acute kidney failure, unspecified; E87.2 Acidosis; F10.188 Alcohol abuse with other alcohol-induced disorder; I25.10 Atherosclerotic heart disease of native coronary artery without angina pectoris; I25.2 Old myocardial infarction; D86.9 Sarcoidosis, unspecified; E78.5 Hyperlipidemia, unspecified; N52.9 Male erectile dysfunction, unspecified; G25.81 Restless legs syndrome; E86.0 Dehydration; R13.10 Dysphagia, unspecified; E87.5 Hyperkalemia; G62.9 Polyneuropathy, unspecified; E29.1 Testicular hypofunction; M47.816 Spondylosis without myelopathy or radiculopathy, lumbar region; M51.26 Other intervertebral disc displacement, lumbar region; Z79.82 Long term (current) use of aspirin; Z79.899 Other long term (current) drug therapy; Z95.5 Presence of coronary angioplasty implant and graft; Z87.820 Personal history of traumatic brain injury

== ENCOUNTER → 2020-02-04 | Outpatient (CLI) | payer MEDICARE, OTHER ==
[~2020-02-04] MED LIST changes: +DIVA250T67 PO; +DIVA250T7 PO; +DIVA500T9 PO; +PATIENT COMMENTS; +ROSU40TA4 PO
[2020-02-04 07:59] LABS: ALBUMIN 3.8 GM/DL (3.2-5.2); ALT/SGPT 73 U/L (12-78); BILIRUBIN,TOTAL 1.8 MG/DL (0.2-1.0); BLOOD UREA NITROGEN 10 MG/DL (7-18); CALCIUM LEVEL 9.2 MG/DL (8.5-10.1); CARBON DIOXIDE LEVEL 28 MEQ/L (21-32); CHLORIDE LEVEL 94 MEQ/L (98-107); CHOLESTEROL LEVEL 316 MG/DL (<200); CREATININE FOR GFR 1.14 MG/DL (0.70-1.30); GLOMERULAR FILTRATION RATE > 60.0 (>56); GLUCOSE, FASTING 104 MG/DL (70-100); HDL CHOLESTEROL 130 MG/DL (>40); LDL CHOLESTEROL 169 MG/DL (<100); NON-HDL-C 186 MG/DL; POTASSIUM SERUM 3.6 MEQ/L (3.5-5.1); SODIUM LEVEL 129 MEQ/L (136-145); TOTAL PROTEIN 10.3 GM/DL (6.4-8.2); TRIGLYCERIDES LEVEL 84 MG/DL (<150)
== END ==
LOC: M LAB 07:01
PROVIDERS: ATTEND Physician Assistant
DX: I25.10 Atherosclerotic heart disease of native coronary artery without angina pectoris (principal); E78.00 Pure hypercholesterolemia, unspecified; I10 Essential (primary) hypertension

== ENCOUNTER → 2020-02-12 | Outpatient (CLI) | payer MEDICARE, OTHER ==
[~2020-02-12] MED LIST changes: +ACET1TAB55 GT; -ACET1TAB55 PO; -AMIT25TA PO; +AMIT25TA17 PO; +ASCO500T GT; +ASPI1CHW3 GT; +BISA10SU27 PR; +CARV6.25 PO; +CEFT1INJ5 IM; +CHLO25TA PO; +D31000TA2 GT; +DEPA250T2 PO; +DEPA500T2 PO; +ENEMENE PR; +EZET10TA21 GT; -EZET10TA21 PO; +FOLI1TAB11 GT; +GABA-282 PO; -GABA-843 PO; +GNPSOL OU; +HYDR-4570 PO; +JEVILIQ7 GT; +KEPP250T5 PO; -LISI-1046 PO; +LISI2.5T2 PO; +LYRI200C PO; +MECL-86 PO; +METH50IN8 SC; +METO25TA4 GT; +MILKSUS3 GT; +MODA200T15 GT; +MULTCAP PO; +OXCA300S3 GT; +PROTPAK GT; +REST0.05 OU; +ROPI1TAB3 GT; +SENN15UDC GT; +THERTAB52 GT; +THIA100T7 GT; +THIA100T7 PO; +THIA100TA PO; +TRIL1TAB PO; +VITMTA PO; +ZINC100T3 GT; +[UNRECOGNIZED DRUG - CODE] OU
== END ==
LOC: M LABSMTC 13:49
PROVIDERS: ATTEND Family Medicine
DX: Z11.59 Encounter for screening for other viral diseases (principal); Z20.828 Contact with and (suspected) exposure to other viral communicable diseases
CPT/HCPCS: C9803; U0003

== ENCOUNTER → 2020-02-18 | Outpatient (CLI) | payer MEDICARE, OTHER ==
[~2020-02-18] MED LIST changes: -ACET1TAB55 GT; +ACET1TAB55 PO; +AMIT25TA PO; -AMIT25TA17 PO; -ASCO500T GT; -ASPI1CHW3 GT; -BISA10SU27 PR; -CARV6.25 PO; -CEFT1INJ5 IM; -CHLO25TA PO; -D31000TA2 GT; -DEPA250T2 PO; -DEPA500T2 PO; -ENEMENE PR; -EZET10TA21 GT; +EZET10TA21 PO; -FOLI1TAB11 GT; -GABA-282 PO; +GABA-843 PO; -GNPSOL OU; -HYDR-4570 PO; -JEVILIQ7 GT; -KEPP250T5 PO; -LYRI200C PO; -MECL-86 PO; -METH50IN8 SC; -METO25TA4 GT; -MILKSUS3 GT; -MODA200T15 GT; -MULTCAP PO; -OXCA300S3 GT; -PROTPAK GT; -REST0.05 OU; -ROPI1TAB3 GT; -SENN15UDC GT; -THERTAB52 GT; -THIA100T7 GT; -THIA100T7 PO; -THIA100TA PO; -TRIL1TAB PO; -VITMTA PO; -ZINC100T3 GT; -[UNRECOGNIZED DRUG - CODE] OU
[2020-02-18 14:40] LABS: ALBUMIN 3.6 GM/DL (3.2-5.2); BILIRUBIN,DIRECT 0.3 MG/DL (0.0-0.2); BILIRUBIN,TOTAL 0.8 MG/DL (0.2-1.0); TOTAL PROTEIN 8.9 GM/DL (6.4-8.2)
== END ==
LOC: M LAB 12:36
PROVIDERS: ATTEND Physician Assistant
DX: E78.00 Pure hypercholesterolemia, unspecified (principal)

== ENCOUNTER → 2020-03-02 | Outpatient (CLI) | payer MEDICARE, OTHER ==
[2020-03-02 09:53] LABS: ALBUMIN 3.5 GM/DL (3.2-5.2); BILIRUBIN,DIRECT 0.2 MG/DL (0.0-0.2); BILIRUBIN,TOTAL 0.3 MG/DL (0.2-1.0); TOTAL PROTEIN 8.3 GM/DL (6.4-8.2)
== END ==
LOC: M LAB 09:08
PROVIDERS: ATTEND Physician Assistant
DX: E78.00 Pure hypercholesterolemia, unspecified (principal)

== ENCOUNTER 2020-03-17 08:45 | Inpatient (IN) | payer MEDICARE, OTHER ==
[~2020-03-17] VITALS: Ht 172.7 cm; Wt 60.8 kg
[2020-03-17] MEDS ORDERED: NS 1,000 ML IV SCH (08:48)
[2020-03-17] MEDS ORDERED: ONDANSETRON 4MG/2ML VIAL As Ordered ONE (08:53)
[2020-03-17] MEDS ORDERED: ONDANSETRON 4MG/2ML VIAL IV ONE ×2 (09:00→10:15)
[2020-03-17 09:27] LABS: BASO # 0.1 10^3/uL (0.0-0.2); BASO % 0.5 % (0.0-1.0); EOS % 0.1 % (0.0-3.0); HEMATOCRIT 47.1 % (42.0-52.0); HEMOGLOBIN 14.2 g/dl (13.5-17.5); LYMPH # 6.3 10^3/uL (1.5-5.0); MEAN CORPUSCULAR HEMOGLOBIN 32.1 pg (27.0-33.0); MEAN CORPUSCULAR HGB CONC 30.1 g/dl (32.0-36.5); MEAN CORPUSCULAR VOLUME 106.6 fl (80.0-96.0); MONO # 0.9 10^3/uL (0.0-0.8); MONO % 7.9 % (0.0-5.0); NEUTROPHILS # 3.4 10^3/uL (1.5-8.5); NEUTROPHILS % 31.8 % (36.0-66.0); RED BLOOD COUNT 4.42 10^6/uL (4.30-6.10)
[2020-03-17 09:28] LABS: PLATELET COUNT, AUTOMATED 86 10^3/uL (150-450); WHITE BLOOD COUNT 10.8 10^3/uL (4.0-10.0)
[2020-03-17] MEDS ORDERED: HYDR-4570 PO (09:34)
--- NOTE | 2020-03-17 09:50 | REP ---
REASON: Status epilepticus. COMPARISON: 01/20/2020 There are chronic opacities status quo with chronic CP angle blunting bilaterally status quo. The technique utilized in obtaining the radiograph has magnified the cardiac silhouette and accentuated the interstitial markings. IMPRESSION: No change. Electronically Signed by Ed Velez DO 03/17/2020 04:01 P
[2020-03-17 09:51] LABS: ALBUMIN 3.7 GM/DL (3.2-5.2); ALT/SGPT 52 U/L (12-78); BILIRUBIN,DIRECT 0.6 MG/DL (0.0-0.2); BILIRUBIN,TOTAL 1.7 MG/DL (0.2-1.0); BLOOD UREA NITROGEN 9 MG/DL (7-18); CALCIUM LEVEL 9.2 MG/DL (8.5-10.1); CARBON DIOXIDE LEVEL 8 MEQ/L (21-32); CHLORIDE LEVEL 97 MEQ/L (98-107); CREATININE FOR GFR 1.51 MG/DL (0.70-1.30); GLOMERULAR FILTRATION RATE > 60.0 (>56); GLUCOSE, FASTING 157 MG/DL (70-100); MAGNESIUM LEVEL 3.1 MG/DL (1.8-2.4); PHOSPHORUS LEVEL 4.6 MG/DL (2.5-4.9); POTASSIUM SERUM 3.7 MEQ/L (3.5-5.1); SODIUM LEVEL 137 MEQ/L (136-145); TOTAL PROTEIN 10.2 GM/DL (6.4-8.2)
[2020-03-17 10:33] LABS: ABG BASE EXCESS -11.4 (-2.0-2.0); ABG HCO3 13.6 MEQ/L (22.0-26.0); ABG O2 SATURATION 91.4 % (95.0-99.0); ABG PARTIAL PRESSURE CO2 28.8 mmHg (35.0-45.0); ABG PARTIAL PRESSURE O2 69.9 mmHg (75.0-100.0); ABG STANDARD HCO3 15.5 MEQ/L (22.0-26.0); ABG TOTAL CO2 14.5 MEQ/L (22.0-29.0); ABG pH (ARTERIAL) 7.292 UNITS (7.350-7.450)
[2020-03-17] MEDS ORDERED: LORazepam 2 MG/ML VIAL IV STA (10:33)
--- NOTE | 2020-03-17 10:45 | REP ---
CT BRAIN WITHOUT CONTRAST: HISTORY: Status epilepticus. Comparison head CT study January 20, 2020. CT FINDINGS: Preliminary digital gear grinder radiograph is unremarkable. Bone windows settings demonstrate an intact bony calvarium. There is some vascular calcification in the distal internal carotid arteries. Minimal motion artifact is seen. There is no evidence of intracranial hemorrhage. There is mild generalized volume loss as before. There is an area of old encephalomalacia in the inferior aspect of the frontal lobe and inferior temporal lobe on the right unchanged from the comparison study. No new infarct or mass is seen. No extra-axial fluid collection is noted. IMPRESSION: Old encephalomalacia right inferior frontal lobe unchanged from comparison study. Minimal vascular calcification. No acute intracranial abnormality. Electronically Signed by Arnaldo Jansen MD 03/17/2020 02:55 P
[2020-03-17 10:51] LABS: OSMOLALITY SERUM 326 MOSM/KG (275-295)
[2020-03-17 10:54] LABS: ACETONE/KETONE 3.18 MG/DL (<2.81)
[2020-03-17] MEDS ORDERED: DIVA250T7 PO (11:33)
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
[2020-03-17] MEDS ORDERED: PRED5TA PO (12:46)
[2020-03-17] MEDS ORDERED: CHLO25TA PO (12:46)
[2020-03-17] MEDS ORDERED: MECL-86 PO (12:46)
[2020-03-17] MEDS ORDERED: LYRI200C PO (12:46)
[2020-03-17] MEDS ORDERED: METH50IN8 SC (12:46)
[2020-03-17] MEDS ORDERED: hydrOXYzine 25 MG TAB PO PRN (13:00)
[2020-03-17] MEDS ORDERED: MECLIZINE 25 MG TABLET PO PRN (13:00)
[2020-03-17] MEDS ORDERED: LORazepam 2 MG/ML VIAL IV PRN (13:45)
[2020-03-17 14:00] VITALS: BP 127/80
[2020-03-17] MEDS: ASPIRIN ENTERIC 325 MG TAB PO SCH (14:21)
[2020-03-17] MEDS: DIVALPROEX 500MG *ER* TAB PO SCH ×2 (14:21→21:29)
[2020-03-17] MEDS: NS 1,000 ML IV SCH (14:22)
[2020-03-17] MEDS: PREGABALIN 100 MG CAP (LYRICA) PO SCH ×2 (14:22→21:29)
[2020-03-17] MEDS: FOLIC ACID 1 MG TAB PO SCH (14:22)
[2020-03-17] MEDS: LORATADINE 10 MG TAB PO SCH (14:22)
[2020-03-17 14:30] VITALS: BP 127/80
[2020-03-17 16:00] VITALS: BP 146/94
[2020-03-17] MEDS: rOPINIRole 0.25 MG TAB(REQUIP) PO SCH ×2 (17:38→21:29)
[2020-03-17 19:00] VITALS: BP 138/99
[2020-03-17 19:26] LABS: BLOOD UREA NITROGEN 10 MG/DL (7-18); CALCIUM LEVEL 8.3 MG/DL (8.5-10.1); CARBON DIOXIDE LEVEL 25 MEQ/L (21-32); CHLORIDE LEVEL 106 MEQ/L (98-107); CREATININE FOR GFR 1.36 MG/DL (0.70-1.30); GLOMERULAR FILTRATION RATE > 60.0 (>56); GLUCOSE, FASTING 90 MG/DL (70-100); POTASSIUM SERUM 4.2 MEQ/L (3.5-5.1); SODIUM LEVEL 139 MEQ/L (136-145)
[2020-03-17 20:00] VITALS: BP 138/99
[2020-03-17] MEDS ORDERED: DIVALPROEX 250MG *ER* TAB PO SCH (21:00)
[2020-03-17] MEDS: EZETIMIBE 10 MG TAB (ZETIA) PO SCH (21:29)
--- NOTE | 2020-03-17 21:31 | ECGEPIP ---
[facility] - ED Test Date: 2020-03-17 Pat Name: JOHN GROSSMAN Department: Room: - Gender: Male Cardiopulmonary Technologist Chief: vaishalimarcela : [id number] Requested By: MARJORIE Murrell Order Number: [id number] Reading MD: Rogelio Frenández Measurements Intervals [place] Rate: 125 P: 76 LA: 166 QRS: 70 QRSD: 86 T: 37 QT: 281 QTc: 405 Interpretive Statements SINUS TACHYCARDIA NONSPECIFIC T-WAVE ABNORMALITY SIMILAR TO 01/20/20 Electronically Signed on 03-17-2020 21:31:47 EDT by Rogelio Fernández
[2020-03-17] MEDS: ROSUVASTATIN 10 MG TAB (CRESTOR) PO SCH (21:34)
[2020-03-17 22:38] LABS: AMPHETAMINES LEVEL URINE NEGATIVE (NEGATIVE); BARBITURATES URINE NEGATIVE (NEGATIVE); BENZODIAZEPINES URINE NEGATIVE (NEGATIVE); CANNABINOIDS URINE NEGATIVE (NEGATIVE); COCAINE METABOLITE URINE NEGATIVE (NEGATIVE); METHADONE URINE NEGATIVE (NEGATIVE); OPIATES URINE NEGATIVE (NEGATIVE); PHENCYCLIDINE URINE NEGATIVE (NEGATIVE)
[2020-03-18] VITALS (9 sets, daily range): BP systolic 133–163; BP diastolic 86–95
[2020-03-18] MEDS: NS 1,000 ML IV SCH ×3 (02:04→22:51)
[2020-03-18 05:52] LABS: BASO % 0.2 % (0.0-1.0); CALCIUM LEVEL 8.3 MG/DL (8.5-10.1); CREATININE FOR GFR 1.56 MG/DL (0.70-1.30); GLOMERULAR FILTRATION RATE 59.7 (>56); HEMATOCRIT 36.4 % (42.0-52.0); LYMPH # 1.7 10^3/uL (1.5-5.0); MEAN CORPUSCULAR HEMOGLOBIN 32.9 pg (27.0-33.0); MEAN CORPUSCULAR HGB CONC 32.4 g/dl (32.0-36.5); MEAN CORPUSCULAR VOLUME 101.4 fl (80.0-96.0); MONO # 0.9 10^3/uL (0.0-0.8); MONO % 10.6 % (0.0-5.0); NEUTROPHILS # 5.8 10^3/uL (1.5-8.5); NEUTROPHILS % 68.8 % (36.0-66.0); POTASSIUM SERUM 3.5 MEQ/L (3.5-5.1); RED BLOOD COUNT 3.59 10^6/uL (4.30-6.10); WHITE BLOOD COUNT 8.4 10^3/uL (4.0-10.0)
[2020-03-18 05:53] LABS: PLATELET COUNT, AUTOMATED 60 10^3/uL (150-450)
[2020-03-18 05:54] LABS: PLTBLUE- EDTA FREE CALC 59 K/mm3 (172-450)
[2020-03-18 05:54] LABS: HEMOGLOBIN 11.8 g/dl (13.5-17.5)
[2020-03-18 05:55] LABS: PLTBLUE- EDTA FREE MACHINE 54 10^3/uL (172-450)
[2020-03-18] MEDS ORDERED: predniSONE 5 MG TAB PO SCH (09:00)
[2020-03-18] MEDS: THIAMINE 100 MG TAB PO SCH (09:08)
[2020-03-18] MEDS: LORATADINE 10 MG TAB PO SCH (09:08)
[2020-03-18] MEDS: DIVALPROEX 500MG *ER* TAB PO SCH (09:08)
[2020-03-18] MEDS: PREGABALIN 100 MG CAP (LYRICA) PO SCH ×2 (09:09→20:10)
[2020-03-18] MEDS: ASPIRIN ENTERIC 325 MG TAB PO SCH (09:09)
[2020-03-18] MEDS: FOLIC ACID 1 MG TAB PO SCH (09:09)
[2020-03-18 09:46] LABS: FOLATE 19.2 NG/ML
--- NOTE | 2020-03-18 09:55 | REP ---
COMPLETE ABDOMINAL SONOGRAPHY WITH PORTAL VENOUS DOPPLER ASSESSMENT: HISTORY: Thrombocytopenia. Abdominal pain. MORPHOLOGIC FINDINGS: Scanning through the right upper quadrant of the abdomen demonstrates minimal sludge and echogenic foci in the dependent portion the gallbladder consistent with small gallstones. Gallbladder is normal in size with a smooth thin wall. Common bile duct is mildly prominent at 0.9 cm diameter. No intrahepatic ductal dilation is seen. No focal liver lesion is seen. There is evidence of mild fatty infiltration of the liver. The pancreas is obscured by abdominal gas. Spleen is normal in size homogeneous in texture measuring 8.9 cm in greatest mention. Renal cortical echogenicity pattern is normal and contours are smooth bilaterally. Right renal dimensions are 11.9 x 6.3 x 5.1 cm. Left kidney measures 10.8 x 5.6 x 5.7 cm. No mass, cyst, or hydronephrosis is seen. Normal caliber aorta is seen. VISCERAL DOPPLER FINDINGS: Main portal vein is normal in caliber measuring 12 mm. The Doppler study is somewhat inhibited by patient's limited ability to breath hold. Normal direction of flow is seen in the portal and splenic veins and hepatic veins. Some loss of phasicity is observed in the hepatic veins. Venous velocity in the main portal vein is normal 18.5 cm/s. That in the splenic vein is 33.5 cm/s. Hepatic arterial Doppler peak systolic flow velocity is 63 cm/s which is normal. IMPRESSION: 1. Fatty infiltration of the liver. 2. Mildly dilated CBD. 3. Cholelithiasis with tiny granular gallstones and some sludge. 4. Normal direction and velocities in the portal vein. Electronically Signed by Arnadlo Jansen MD 03/18/2020 12:21 P
--- NOTE | 2020-03-18 10:13 | IPNPDOC ---
Subjective Date Seen The patient was seen on 03/18/20. Subjective Chief Complaint/HPI Pt was examined at bedside. He denies any chest pain, dyspnea, fever, chills, nausea, dizziness, lightheadedness, or vomiting. General: Denies: Chills Constitutional: Denies: Chills, Fever Pulmonary: Denies: Dyspnea, Cough, Pleuritic Chest Pain Cardiovascular: Denies: Chest Pain, Palpitations Gastrointestinal: Denies: Nausea, Vomiting, Abdominal Pain Objective Physical Examination General Exam: Positive: Alert, Cooperative, No Acute Distress Eye Exam: Positive: Conjunctiva & lids normal ENT Exam: Positive: Atraumatic, Mucous membr. moist/pink Neck Exam: Positive: Supple Chest Exam: Positive: Normal air movement, Diminished; Negative: Rales, Rhonchi, Wheezing Heart Exam: Positive: Tachycardic, Regular Rhythm, Normal S1, Normal S2 Abdomen Exam: Positive: Normal bowel sounds, Soft; Negative: Tenderness Extremity Exam: Negative: Edema, Swelling Neuro Exam: Positive: Strength at 5/5 X4 ext, Normal Tone, Cranial Nerves 3-12 NL, Other (incoherent speech); Negative: Normal Speech Psych Exam: Positive: Anxiety (mild), Memory Intact, Other (mild incoherent speech. No hallucination. ); Negative: Mental status NL, Mood NL Assessment /Plan Assessment 1. Epilepsy. Hx of unspecified seziure disorder with witnessed seizure in ER. On depakote and pregabalin at home. Depakote levels noted to be subtherapeutic. Pt is mildly disoriented and does not admit missing a dose. Resume home med. CIWA protocol, ativan PRN, and neuro checks. Seizure precaution. Will increased depakote to 750mg BID at this time. Neurology consult ordered and appreciate neurology recommendation. 2. JOSE DAVID. Creat 1.56 increased from baseline. Cont to hold home med ACEI/ aldactone. Pt on oral intake and gentle IV NS 90ml/hr. Creatinine kinase ordered given pt had JOSE DAVID with fall after seizure episodes; UA showed blood which may indicated myoglobin. 3. Alcoholic ketoacidosis, increased anion gap metabolic acidosis, resolved. Gap has closed. Pt has been on IV NS 90ml/hr. F/u BMP 4. Alcoholism. Chronic alcoholism. Cont thiamine and folate. 5. Alcohol withdrawl. Mild disorientation and incoherent speech. Cont CIWA protocol with Ativan PRN 6. Thrombocytopenia. Immature platelet fraction wnl and no liver cirrhosis noted in liver doppler US. Cont to follow up with CBC 7. CAD. PMH of CAD. Continue home meds 8. Sarcoidosis. Continue home med prednisone 9. Concussion after fall with seizure episodes. CT head showed no acute changes. Cont neuro checks 10. Hyperlipidemia. Continue statin therapy DVT prophylaxis with SCD Plan/VTE VTE Prophylaxis Ordered?: Yes Plan IVF: Continue Diet: Continue Current Activity: Continue Current Therapy: PT Diagnostics: Repeat Labs in AM Disposition alcohol use disorder with hx of epilepsy presented to [facility] with break through seizure and alcoholic ketoacidosis, on IVF and PO intake. CIWA with Ativan PRN VS, I&O, 24H, Fishbone Vital Signs/I&O Vital Signs Date Time Temp Pulse Resp B/P (MAP) Pulse Ox O2 Delivery O2 Flow Rate FiO2 03/18/20 07:58 97.4 90 18 163/93 (116) 98 Room Air I&O- Last 24 Hours up to 6 AM 03/18/20 06:00 Intake Total 1660 ml Output Total 600 ml Balance 1060 ml Laboratory Data 24H LABS Laboratory Tests 2 03/17/20 10:16: Blood Gas Bicarbonate Standard 15.5L, Arterial Blood pH 7.292L, Arterial Blood Partial Pressure CO2 28.8L, Arterial Blood Partial Pressure O2 69.9L, Arterial Blood Total CO2 14.5L, Arterial Blood HCO3 13.6L, Arterial Blood Base Excess -11.4L, Arterial Blood Oxygen Saturation 91.4L 03/17/20 18:36: Anion Gap 8, Glomerular Filtration Rate > 60.0, Calcium Level 8.3L 03/17/20 21:40: Urine Color YELLOW, Urine Appearance CLEAR, Urine pH 7.0, Urine Specific [place] 1.004, Urine Protein 1+H, Urine Glucose (UA) NEGATIVE, Urine Ketones NEGATIVE, Urine Blood 3+H, Urine Nitrite NEGATIVE, Urine Bilirubin NEGATIVE, Urine Urobilinogen 0.2, Urine Leukocyte Esterase NEGATIVE, Urine WBC (Auto) 1, Urine RBC (Auto) 0, Urine Hyaline Casts (Auto) 1, Urine Bacteria (Auto) NEGATIVE, Urine Squamous Epithelial Cells 0, Urine Mucus (Auto) SMALL, Urine Sperm (Auto) , Urine Opiates Screen NEGATIVE, Urine Methadone Screen NEGATIVE, Urine Barbiturates Screen NEGATIVE, Urine Phencyclidine Screen NEGATIVE, Urine Amphe tamines Screen NEGATIVE, Urine Benzodiazepines Screen NEGATIVE, Urine Cocaine Metabolite Screen NEGATIVE, Urine Cannabinoids Screen NEGATIVE 03/18/20 04:58: Anion Gap 8, Glomerular Filtration Rate 59.7, Calcium Level 8.3L, Immature Granulocyte % (Auto) 0.4, Neutrophils (%) (Auto) 68.8H, Lymphocytes (%) (Auto) 20.0L, Monocytes (%) (Auto) 10.6H, Eosinophils (%) (Auto) 0.0, Basophils (%) (Auto) 0.2, Neutrophils # (Auto) 5.8, Lymphocytes # (Auto) 1.7, Monocytes # (Auto) 0.9H, Eosinophils # (Auto) 0.0, Basophils # (Auto) 0.0, Nucleated Red Blood Cells % (auto) 0.0, Differential Slide Review Report, Peripheral Blood Smear Path Consult PERIPHERAL SMEAR, Vitamin B12 Level 569, Folate 19.2 03/18/20 05:48: Platelet Count, EDTA Free 59L CBC/BMP Laboratory Tests 03/17/20 18:36 03/18/20 04:58 ROBBY BARCENAS DO Mar 18, 2020 10:12
[2020-03-18] MEDS: rOPINIRole 0.25 MG TAB(REQUIP) PO SCH ×2 (17:05→21:11)
[2020-03-18] MEDS: EZETIMIBE 10 MG TAB (ZETIA) PO SCH (20:10)
[2020-03-18] MEDS: ROSUVASTATIN 10 MG TAB (CRESTOR) PO SCH (20:10)
[2020-03-18] MEDS: DIVALPROEX 250MG *ER* TAB PO SCH (20:10)
[2020-03-19] VITALS: BP 138/93
[2020-03-19] MEDS: NS 1,000 ML IV SCH (03:42)
[2020-03-19 04:00] VITALS: BP 146/85
[2020-03-19 06:00] VITALS: BP 146/85
[2020-03-19 07:44] VITALS: BP 147/97
[2020-03-19] MEDS: ASPIRIN ENTERIC 325 MG TAB PO SCH (09:09)
[2020-03-19] MEDS: PREGABALIN 100 MG CAP (LYRICA) PO SCH (09:10)
[2020-03-19] MEDS: FOLIC ACID 1 MG TAB PO SCH (09:10)
[2020-03-19] MEDS: THIAMINE 100 MG TAB PO SCH (09:11)
[2020-03-19] MEDS: DIVALPROEX 250MG *ER* TAB PO SCH (09:12)
[2020-03-19] MEDS: LORATADINE 10 MG TAB PO SCH (09:12)
[2020-03-19 09:34] LABS: HEMATOCRIT 41.7 % (42.0-52.0); HEMOGLOBIN 13.4 g/dl (13.5-17.5); MEAN CORPUSCULAR HEMOGLOBIN 32.1 pg (27.0-33.0); MEAN CORPUSCULAR HGB CONC 32.1 g/dl (32.0-36.5); RED BLOOD COUNT 4.17 10^6/uL (4.30-6.10); WHITE BLOOD COUNT 7.7 10^3/uL (4.0-10.0)
[2020-03-19 09:39] LABS: PLATELET COUNT, AUTOMATED 57 10^3/uL (150-450)
[2020-03-19 09:42] LABS: BLOOD UREA NITROGEN 5 MG/DL (7-18); CALCIUM LEVEL 8.1 MG/DL (8.5-10.1); CARBON DIOXIDE LEVEL 27 MEQ/L (21-32); CHLORIDE LEVEL 111 MEQ/L (98-107); CREATININE FOR GFR 1.14 MG/DL (0.70-1.30); GLOMERULAR FILTRATION RATE > 60.0 (>56); GLUCOSE, FASTING 81 MG/DL (70-100); POTASSIUM SERUM 3.8 MEQ/L (3.5-5.1); SODIUM LEVEL 144 MEQ/L (136-145)
[2020-03-19 12:00] VITALS: BP 136/68
[2020-03-19 12:13] VITALS: BP 136/96
[2020-03-19] MEDS ORDERED: THIA100TA PO (13:45)
[2020-03-19] MEDS ORDERED: DEPA250T2 PO (13:45)
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
== END 2020-03-19 16:05 | disposition home or self-care (01) | DRG 101 ==
LOC: EDBD 08:45 → M ED 08:45 → M ED INP 11:35 → ENRESERV 11:59 → M PCU 13:45
PROVIDERS: ADMIT Internal Medicine; ATTEND Internal Medicine
DX: G40.909 Epilepsy, unspecified, not intractable, without status epilepticus (principal); N17.9 Acute kidney failure, unspecified; E87.2 Acidosis; F10.239 Alcohol dependence with withdrawal, unspecified; I25.10 Atherosclerotic heart disease of native coronary artery without angina pectoris; I25.2 Old myocardial infarction; D86.9 Sarcoidosis, unspecified; E78.5 Hyperlipidemia, unspecified; N52.9 Male erectile dysfunction, unspecified; E29.1 Testicular hypofunction; G62.9 Polyneuropathy, unspecified; K80.20 Calculus of gallbladder without cholecystitis without obstruction; D69.6 Thrombocytopenia, unspecified; M47.26 Other spondylosis with radiculopathy, lumbar region; K76.0 Fatty (change of) liver, not elsewhere classified; M51.26 Other intervertebral disc displacement, lumbar region; Z95.5 Presence of coronary angioplasty implant and graft; Z87.820 Personal history of traumatic brain injury; Z79.82 Long term (current) use of aspirin; Z79.52 Long term (current) use of systemic steroids; Z79.899 Other long term (current) drug therapy; Z91.14 Patient's other noncompliance with medication regimen

== ENCOUNTER 2020-04-02 10:56 | Inpatient (IN) | payer OTHER, MEDICARE ==
[~2020-04-02] VITALS: Ht 172.7 cm; Wt 62.5 kg
[~2020-04-02 10:56] MED LIST changes: +CHLO25TA PO; +DEPA250T2 PO; +HYDR-4570 PO; +LISINOPRIL *2.5 MG* TAB PO SCH; +LYRI200C PO; +MECL-86 PO; +METH50IN8 SC; +THIA100TA PO
[2020-04-02] MEDS ORDERED: LORazepam 2 MG/ML VIAL IV STA ×2 (11:14→13:13)
[2020-04-02] MEDS ORDERED: LORazepam 2 MG/ML VIAL As Ordered ONE (11:17)
[2020-04-02] MEDS ORDERED: NS 1,000 ML IV ONE (11:30)
--- NOTE | 2020-04-02 12:11 | REP ---
CT BRAIN WITHOUT CONTRAST: HISTORY: Status epilepticus. Comparison head CT study March 07, 2020. CT FINDINGS: Digital preliminary social work administrator radiograph is unremarkable. Bone window settings demonstrate an intact bony calvarium. Visualized paranasal sinuses are clear. There is vascular calcification in the distal internal carotid arteries bilaterally. There are areas of encephalomalacia in the inferior frontal lobes bilaterally, right more extensive than left but unchanged from the comparison study. There is no evidence of acute infarction. No intracranial hemorrhage is seen. No mass, extra-axial fluid collection or midline shift is seen. There is generalized volume loss and concordant ventricular enlargement unchanged. IMPRESSION: Chronic changes as previously noted. Old encephalomalacia in the frontal lobes. Generalized volume loss. Vascular calcification. No acute intracranial abnormality. Electronically Signed by Arnaldo Jansen MD 04/02/2020 12:31 P
--- NOTE | 2020-04-02 12:18 | REP ---
Clinical: Acute status epilepticus. Comparison: 03/17/2020. Findings: Chronic biapical scarring and calcifications are again identified. No focal consolidation. Small bibasilar pleural effusions versus chronic pleural reactions are unchanged. No pneumothorax. Impression: Chronic stable changes. No obvious acute process. Electronically Signed by Jason Hahn MD 04/02/2020 12:10 P
[2020-04-02 12:23] LABS: AMPHETAMINES LEVEL URINE NEGATIVE (NEGATIVE); BARBITURATES URINE NEGATIVE (NEGATIVE); BENZODIAZEPINES URINE NEGATIVE (NEGATIVE); CANNABINOIDS URINE NEGATIVE (NEGATIVE); COCAINE METABOLITE URINE NEGATIVE (NEGATIVE); METHADONE URINE NEGATIVE (NEGATIVE); OPIATES URINE NEGATIVE (NEGATIVE); PHENCYCLIDINE URINE NEGATIVE (NEGATIVE)
[2020-04-02 12:26] LABS: BASO % 0.2 % (0.0-1.0); HEMATOCRIT 45.9 % (42.0-52.0); HEMOGLOBIN 14.5 g/dl (13.5-17.5); LYMPH # 0.4 10^3/uL (1.5-5.0); LYMPH % 2.1 % (24.0-44.0); MEAN CORPUSCULAR HEMOGLOBIN 33.9 pg (27.0-33.0); MEAN CORPUSCULAR HGB CONC 31.6 g/dl (32.0-36.5); MEAN CORPUSCULAR VOLUME 107.2 fl (80.0-96.0); MONO # 1.1 10^3/uL (0.0-0.8); MONO % 6.6 % (0.0-5.0); NEUTROPHILS # 15.7 10^3/uL (1.5-8.5); NEUTROPHILS % 90.2 % (36.0-66.0); PLATELET COUNT, AUTOMATED 200 10^3/uL (150-450); RED BLOOD COUNT 4.28 10^6/uL (4.30-6.10); WHITE BLOOD COUNT 17.4 10^3/uL (4.0-10.0)
[2020-04-02 12:58] LABS: ALBUMIN 3.7 GM/DL (3.2-5.2); ALT/SGPT 55 U/L (12-78); BILIRUBIN,DIRECT 0.2 MG/DL (0.0-0.2); BILIRUBIN,TOTAL 0.5 MG/DL (0.2-1.0); BLOOD UREA NITROGEN 4 MG/DL (7-18); CALCIUM LEVEL 8.9 MG/DL (8.5-10.1); CARBON DIOXIDE LEVEL 8 MEQ/L (21-32); CHLORIDE LEVEL 99 MEQ/L (98-107); CREATININE FOR GFR 2.03 MG/DL (0.70-1.30); ETHYL ALCOHOL (ETHANOL) < 0.003 % (0.000-0.010); GLOMERULAR FILTRATION RATE 44.1 (>56); GLUCOSE, FASTING 300 MG/DL (70-100); MAGNESIUM LEVEL 3.2 MG/DL (1.8-2.4); PHOSPHORUS LEVEL 6.2 MG/DL (2.5-4.9); POTASSIUM SERUM 4.9 MEQ/L (3.5-5.1); SODIUM LEVEL 133 MEQ/L (136-145); TOTAL PROTEIN 10.2 GM/DL (6.4-8.2); VALPROIC ACID (DEPAKOTE) 57.6 UG/ML (50.0-100.0)
[2020-04-02] MEDS ORDERED: NS 1,000 ML IV SCH (13:06)
[2020-04-02 13:25] LABS: ABG BASE EXCESS -11.9 (-2.0-2.0); ABG HCO3 12.9 MEQ/L (22.0-26.0); ABG O2 SATURATION 96.8 % (95.0-99.0); ABG PARTIAL PRESSURE CO2 27.1 mmHg (35.0-45.0); ABG PARTIAL PRESSURE O2 92.5 mmHg (75.0-100.0); ABG STANDARD HCO3 15.3 MEQ/L (22.0-26.0); ABG TOTAL CO2 13.8 MEQ/L (22.0-29.0); ABG pH (ARTERIAL) 7.297 UNITS (7.350-7.450)
[2020-04-02] MEDS ORDERED: levETIRAcetam INJection 1,000 MG in D5W 100 ML IV ONE (13:30)
[2020-04-02] MEDS ORDERED: DIVA500T9 PO (13:48)
[2020-04-02] MEDS ORDERED: DULO1CAP6 PO (13:50)
[2020-04-02] MEDS ORDERED: REST0.05 OU (13:50)
[2020-04-02 14:19] LABS: ACETONE/KETONE 7.78 MG/DL (<2.81)
[2020-04-02 14:24] LABS: HEMOGLOBIN A1c 4.1 %
[2020-04-02] MEDS ORDERED: LORazepam 2 MG/ML VIAL IV PRN (15:00)
[2020-04-02] MEDS ORDERED: LORazepam 2 MG TAB PO PRN (15:30)
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
[2020-04-02] MEDS: NS 1,000 ML IV SCH ×2 (16:00→20:42)
[2020-04-02 17:15] VITALS: BP 153/89
[2020-04-02 17:28] VITALS: BP 153/89
[2020-04-02] MEDS: DULoxetine 30 MG CAP (CYMBALTA) PO SCH (18:30)
[2020-04-02 19:52] VITALS: BP 150/94
[2020-04-02 19:58] VITALS: BP 150/94
[2020-04-02] MEDS: PREGABALIN 100 MG CAP (LYRICA) PO SCH (20:42)
[2020-04-02] MEDS: THIAMINE 100 MG TAB PO SCH (20:42)
[2020-04-02] MEDS: HEPARIN SOD (PORCINE) 5000UNITS/ML 1ML VIAL/SYRINGE SC SCH (20:42)
[2020-04-02] MEDS: levETIRAcetam 250MG TABLET (KEPPRA) PO SCH (20:42)
[2020-04-02] MEDS: EZETIMIBE 10 MG TAB (ZETIA) PO SCH (20:42)
[2020-04-02] MEDS: DIVALPROEX 250MG *ER* TAB PO SCH (20:43)
[2020-04-02] MEDS ORDERED: levETIRAcetam 250MG TABLET (KEPPRA) PO SCH (21:00)
[2020-04-02] MEDS ORDERED: DIVALPROEX 500MG *ER* TAB PO SCH (21:00)
[2020-04-02] MEDS ORDERED: DIVALPROEX 250 MG TAB PO SCH (21:00)
[2020-04-02] MEDS ORDERED: ONDANSETRON 4MG/2ML VIAL IV PRN (22:00)
[2020-04-02 23:24] LABS: BLOOD UREA NITROGEN 3 MG/DL (7-18); CALCIUM LEVEL 7.6 MG/DL (8.5-10.1); CARBON DIOXIDE LEVEL 24 MEQ/L (21-32); CHLORIDE LEVEL 110 MEQ/L (98-107); CREATININE FOR GFR 0.92 MG/DL (0.70-1.30); GLOMERULAR FILTRATION RATE > 60.0 (>56); GLUCOSE, FASTING 77 MG/DL (70-100); POTASSIUM SERUM 3.6 MEQ/L (3.5-5.1); SODIUM LEVEL 142 MEQ/L (136-145)
[2020-04-03] VITALS (11 sets, daily range): BP systolic 138–170; BP diastolic 85–105
[2020-04-03] MEDS ORDERED: levETIRAcetam INJection 500 MG in D5W MINI-BAG PLUS 100 ML IV ONE (01:15)
[2020-04-03 05:34] LABS: BASO % 0.1 % (0.0-1.0); HEMATOCRIT 35.5 % (42.0-52.0); LYMPH # 1.6 10^3/uL (1.5-5.0); LYMPH % 21.9 % (24.0-44.0); MEAN CORPUSCULAR HEMOGLOBIN 34.1 pg (27.0-33.0); MEAN CORPUSCULAR HGB CONC 33.8 g/dl (32.0-36.5); MEAN CORPUSCULAR VOLUME 100.9 fl (80.0-96.0); MONO # 0.7 10^3/uL (0.0-0.8); MONO % 9.3 % (0.0-5.0); NEUTROPHILS # 4.9 10^3/uL (1.5-8.5); NEUTROPHILS % 68.4 % (36.0-66.0); PLATELET COUNT, AUTOMATED 117 10^3/uL (150-450); RED BLOOD COUNT 3.52 10^6/uL (4.30-6.10); WHITE BLOOD COUNT 7.1 10^3/uL (4.0-10.0)
[2020-04-03 05:54] LABS: BLOOD UREA NITROGEN 2 MG/DL (7-18); CALCIUM LEVEL 7.7 MG/DL (8.5-10.1); CARBON DIOXIDE LEVEL 23 MEQ/L (21-32); CHLORIDE LEVEL 108 MEQ/L (98-107); CREATININE FOR GFR 0.81 MG/DL (0.70-1.30); GLOMERULAR FILTRATION RATE > 60.0 (>56); GLUCOSE, FASTING 82 MG/DL (70-100); POTASSIUM SERUM 3.2 MEQ/L (3.5-5.1); SODIUM LEVEL 139 MEQ/L (136-145)
--- NOTE | 2020-04-03 06:19 | ECGEPIP ---
[facility] - ED Test Date: 2020-04-02 Pat Name: JOHN GROSSAMN Department: Room: - Gender: Male [employer] Professor: JKiya : 1965 Requested By: MARJORIE Murrell Order Number: [id number] Reading MD: Rogelio Fernández Measurements Intervals [place] Rate: 133 P: 80 PA: 159 QRS: 83 QRSD: 94 T: -10 QT: 271 QTc: 403 Interpretive Statements SINUS TACHYCARDIA NSTTW ABNORMALITIES SIMILAR TO 03/17/20 Electronically Signed on 04-03-2020 6:19:07 EDT by Rogelio Fernández
[2020-04-03] MEDS ORDERED: KCL 10MEQ/100ML SWI (KRUN) 10 MEQ in IV 1 EA IV ONE (06:45)
[2020-04-03 06:50] LABS: FERRITIN 1417 NG/ML (26-388); IRON (FE) 30 UG/DL (65-175); MAGNESIUM LEVEL 2.1 MG/DL (1.8-2.4); PERCENT SATURATION 11.6 % (19.7-50.0); TOTAL IRON BINDING CAPACITY 258 UG/DL (250-450)
[2020-04-03] MEDS: NS 1,000 ML IV SCH (06:55)
[2020-04-03] MEDS ORDERED: POTASSIUM CHLORIDE 10 MEQ SR TABLET PO ONE ×2 (09:00→11:00)
[2020-04-03] MEDS: HEPARIN SOD (PORCINE) 5000UNITS/ML 1ML VIAL/SYRINGE SC SCH ×2 (09:47→21:43)
[2020-04-03] MEDS: ASPIRIN ENTERIC 325 MG TAB PO SCH (09:47)
[2020-04-03] MEDS: DIVALPROEX 500MG *ER* TAB PO SCH (09:47)
[2020-04-03] MEDS: PREGABALIN 100 MG CAP (LYRICA) PO SCH ×2 (09:47→21:42)
[2020-04-03] MEDS: FOLIC ACID 1 MG TAB PO SCH (09:48)
[2020-04-03] MEDS: levETIRAcetam 250MG TABLET (KEPPRA) PO SCH ×2 (09:48→21:42)
[2020-04-03] MEDS: predniSONE 5 MG TAB PO SCH (09:48)
[2020-04-03] MEDS: THIAMINE 100 MG TAB PO SCH ×2 (09:49→21:43)
[2020-04-03] MEDS: MULTIVITAMINS/MINERALS THERAP 1 TAB PO SCH (09:49)
[2020-04-03] MEDS: DULoxetine 30 MG CAP (CYMBALTA) PO SCH (09:49)
[2020-04-03 11:14] LABS: FOLATE 11.5 NG/ML (>5.4); VITAMIN B12 LEVEL 644 PG/ML (247-911)
[2020-04-03] MEDS: D5W/0.9% SODIUM CHLORIDE 1,000 ML IV SCH (12:18)
--- NOTE | 2020-04-03 19:25 | IPNPDOC ---
Date Seen The patient was seen on 04/03/20. Progress Note SUBJECTIVE: No seizures overnight. Lethargic this AM from events of yesterday. Denies chest pain, n/v/d. OBJECTIVE: VITAL SIGNS: Please see below PHYSICAL EXAMINATION: CONSTITUTIONAL: No acute distress, resting comfortably, AAO x 3 EYES: PERRLA, EOM intact HENT, MOUTH: Normocephalic, atraumatic, moist mucous membranes NECK: SUPPLE, no JVD, no lymphadenopathy, no carotid bruit CV: Regular rate and rhythm, S1S2 normal, no murmurs/rubs/gallops RESPIRATORY: Clear to auscultation bilaterally, no rales/rhonchi/wheezes GI: BS positive in 4 quadrants, soft, nontender, nondistended, no rebound or guarding, no organomegaly : Deferred MUSCULOSKELETAL: Normal ROM. No cyanosis, clubbing, swelling, joint deformity, extremity edema INTEGUMENTARY: Intact, no rashes, no lesions, no erythema NEUROLOGIC: Cranial Nerves II-XII are intact, no focal deficits PSYCHIATRIC: Mood and affect are normal CURRENT MEDICATIONS: Please see below LABORATORY DATA: Please see below IMAGING: None ASSESSMENT: 54 year old male with PMH of TBI, seizure disorder, sarcoidosis, alcohol use disorder, CAD and other medical problems admitted for intractable seizures, JOSE DAVID and lactic acidosis. PLAN: 1. Seizures likely 2/2 to alcohol withdrawal and noncompliance with his depakote. -No seizures overnight. -F/u depakote level in AM (normally levels in office are 85-100). On admission 55 -PT/OT -C/w keppra, valproic acid -Ativan PRN for seizures. 2. Acute metabolic encephalopathy 2/2 to several seizures. Improving. -Still slightly lethargic from yesterday, not eating well so started on D5W 1/2 NSS -No doses of ativan given since ER. -Monitor closely. 3. Lactic acidosis 2/2 to intractable seizures- Resolved with IVFS. 4. Hypoglycemia 2/2 to not eating. Previously elevated sugar up to 300. Started on D5W 1/2 NSS low rate. F/u BS checks Q6 hrs. 5. JOSE DAVID likely prerenal due to dehydration. Resolved with IVFs. -Daily CMP -C/w holding ACEi 6. Alcohol use disorder -No signs of withdrawl. - CIWA protocol 7. Sarcoidosis -continue home meds on weekly methotrexate and prednisone. 8. TBI/ neuropathy/radiculopathy -continue lyrica, -started recently on cymbalta. 9. CAD s/p stents -continue asa,ezetimibe, not on statin. 10. Hyperlipidemia -ezetimibe only. Not on rosuvastatin any more was on it in March 13. H/o RLS not on ropinirole any more was on it in march 14. DVT px. heparin SC DISPOSITION: Plan is discharge home when medically improved. VS, I&O, 24H, Fishbone Vital Signs/I&O Vital Signs Date Time Temp Pulse Resp B/P (MAP) Pulse Ox O2 Delivery O2 Flow Rate FiO2 04/03/20 17:08 150/96 (114) 04/03/20 17:04 82 04/03/20 16:00 97.8 18 97 Room Air I&O- Last 24 Hours up to 6 AM 04/03/20 06:00 Intake Total 3073 ml Output Total 1130 ml Balance 1943 ml Laboratory Data 24H LABS Laboratory Tests 2 04/02/20 19:55: Bedside Glucose (Misc Panel) 75 04/02/20 22:28: Anion Gap 8, Glomerular Filtration Rate > 60.0, Lactic Acid Level 1.8, Calcium Level 7.6L 04/03/20 00:48: Bedside Glucose (Misc Panel) 87 04/03/20 05:14: Anion Gap 8, Glomerular Filtration Rate > 60.0, Calcium Level 7.7L, Immature Granulocyte % (Auto) 0.3, Neutrophils (%) (Auto) 68.4H, Lymphocytes (%) (Auto) 21.9L, Monocytes (%) (Auto) 9.3H, Eosinophils (%) (Auto) 0.0, Basophils (%) (Auto) 0.1, Neutrophils # (Auto) 4.9, Lymphocytes # (Auto) 1.6, Monocytes # (Auto) 0.7, Eosinophils # (Auto) 0.0, Basophils # (Auto) 0.0, Nucleated Red Blood Cells % (auto) 0.0, Magnesium Level 2.1, Iron Level 30L, Total Iron Binding Capacity 258, Transferrin % Saturation 11.6L, Ferritin 1417H, Vitamin B12 Level 644, Folate 11.5 04/03/20 11:49: Bedside Glucose (Misc Panel) 79 04/03/20 17:15: Bedside Glucose (Misc Panel) 78 CBC/BMP Laboratory Tests 04/02/20 22:28 04/03/20 05:14 Current Medications Current Medications Medications (Trade) Dose Ordered Sig/Shannon Route PRN Reason Start Time Stop Time Status Last Admin Dose Admin Aspirin (Ecotrin) 325 mg DAILY PO 04/03/20 09:00 04/03/20 09:47 Dextrose/Sodium Chloride 1,000 ml @ 75 mls/hr [id number] IV 04/03/20 12:00 04/03/20 12:18 Divalproex Sodium (Depakote Er) 500 mg BID PO 04/02/20 21:00 04/02/20 17:18 DC Divalproex Sodium (Depakote Er) 500 mg DAILY PO 04/03/20 09:00 04/03/20 09:47 Divalproex Sodium (Depakote Er) 750 mg QHS PO 04/02/20 21:00 04/02/20 20:43 Divalproex Sodium (Depakote) 750 mg QHS PO 04/02/20 21:00 04/02/20 18:04 DC Duloxetine HCl (Cymbalta) 60 mg DAILY PO 04/02/20 09:00 04/03/20 09:49 EZETIMIBE (Zetia) 10 mg QHS PO 04/02/20 21:00 04/02/20 20:42 Folic Acid (Folic Acid) 1 mg DAILY PO 04/03/20 09:00 04/03/20 09:48 Heparin Sodium (Porcine) (Heparin) 5,000 units Q12H SC 04/02/20 21:00 04/03/20 09:47 Home Med (Med Rec Complete!) ASDIRECTED XX 04/02/20 14:00 04/02/20 13:50 DC Levetiracetam (Keppra) 500 mg BID PO 04/02/20 21:00 04/03/20 09:48 Levetiracetam (Keppra) 750 mg BID PO 04/02/20 21:00 04/02/20 17:16 DC Lisinopril (Prinivil) 2.5 mg DAILY PO 04/02/20 09:00 04/02/20 15:41 DC Lorazepam (Ativan) 1 mg STAT STAT IV 04/02/20 13:13 04/02/20 13:14 DC 04/02/20 13:20 Lorazepam (Ativan) 2 mg ASDIRECTED PRN PO SEE PROTOCOL 04/02/20 15:30 04/03/20 01:05 DC 04/02/20 17:41 Lorazepam (Ativan) 2 mg Q2HP PRN IV Seizure or per CIWA 04/02/20 15:00 04/03/20 01:50 DC 04/03/20 01:21 Lorazepam (Ativan) 2 mg Q2HP PRN IV Seizure or per CIWA 04/03/20 01:45 Lorazepam (Ativan) 2 mg STAT STAT IV 04/02/20 11:14 04/02/20 11:16 DC 04/02/20 11:22 Multivitamins (Theragram-M) 1 tab DAILY PO 04/03/20 09:00 04/03/20 09:49 Ondansetron HCl (ZOFRAN INJection) 4 mg Q6HP PRN IV NAUSEA OR VOMITING 04/02/20 22:00 04/02/20 22:06 Prednisone (Deltasone) 5 mg Q2D PO 04/03/20 09:00 04/03/20 09:48 Pregabalin (Lyrica) 200 mg BID PO 04/02/20 21:00 04/03/20 09:47 Sodium Chloride 1,000 ml @ 100 mls/hr Q10H IV 04/02/20 15:00 04/03/20 12:00 DC 04/03/20 06:55 Sodium Chloride 1,000 ml @ 150 mls/hr Q6H40M IV 04/02/20 13:06 04/02/20 18:00 DC 04/02/20 13:19 Thiamine HCl (Thiamine HCl) 100 mg BID PO 04/02/20 21:00 04/05/20 09:01 04/03/20 09:49 Allergies Coded Allergies: No Known Allergies (Unverified , 02/10/15) Sandra Morales MD Apr 03, 2020 19:25
[2020-04-03] MEDS: DIVALPROEX 250MG *ER* TAB PO SCH (21:43)
[2020-04-03] MEDS: EZETIMIBE 10 MG TAB (ZETIA) PO SCH (21:43)
[2020-04-04] VITALS (8 sets, daily range): BP systolic 124–160; BP diastolic 84–112
[2020-04-04] MEDS: D5W/0.9% SODIUM CHLORIDE 1,000 ML IV SCH (02:09)
[2020-04-04 04:09] LABS: BASO % 0.4 % (0.0-1.0); EOS % 0.4 % (0.0-3.0); HEMATOCRIT 38.8 % (42.0-52.0); HEMOGLOBIN 12.9 g/dl (13.5-17.5); LYMPH # 2.1 10^3/uL (1.5-5.0); LYMPH % 37.9 % (24.0-44.0); MEAN CORPUSCULAR HEMOGLOBIN 33.3 pg (27.0-33.0); MEAN CORPUSCULAR HGB CONC 33.2 g/dl (32.0-36.5); MEAN CORPUSCULAR VOLUME 100.3 fl (80.0-96.0); MONO # 0.4 10^3/uL (0.0-0.8); MONO % 7.4 % (0.0-5.0); NEUTROPHILS # 2.9 10^3/uL (1.5-8.5); NEUTROPHILS % 53.5 % (36.0-66.0); PLATELET COUNT, AUTOMATED 112 10^3/uL (150-450); RED BLOOD COUNT 3.87 10^6/uL (4.30-6.10); WHITE BLOOD COUNT 5.4 10^3/uL (4.0-10.0)
[2020-04-04 04:30] LABS: BLOOD UREA NITROGEN 1 MG/DL (7-18); CARBON DIOXIDE LEVEL 25 MEQ/L (21-32); CHLORIDE LEVEL 106 MEQ/L (98-107); CREATININE FOR GFR 0.77 MG/DL (0.70-1.30); GLOMERULAR FILTRATION RATE > 60.0 (>56); GLUCOSE, FASTING 85 MG/DL (70-100); POTASSIUM SERUM 3.7 MEQ/L (3.5-5.1); SODIUM LEVEL 139 MEQ/L (136-145); VALPROIC ACID (DEPAKOTE) 94.9 UG/ML (50.0-100.0)
[2020-04-04] MEDS: HEPARIN SOD (PORCINE) 5000UNITS/ML 1ML VIAL/SYRINGE SC SCH ×2 (09:00→21:58)
[2020-04-04] MEDS: MULTIVITAMINS/MINERALS THERAP 1 TAB PO SCH (09:42)
[2020-04-04] MEDS: ASPIRIN ENTERIC 325 MG TAB PO SCH (09:42)
[2020-04-04] MEDS: PREGABALIN 100 MG CAP (LYRICA) PO SCH ×2 (09:43→21:58)
[2020-04-04] MEDS: THIAMINE 100 MG TAB PO SCH ×2 (09:43→21:58)
[2020-04-04] MEDS: levETIRAcetam 250MG TABLET (KEPPRA) PO SCH ×2 (09:43→21:58)
[2020-04-04] MEDS: DULoxetine 30 MG CAP (CYMBALTA) PO SCH (09:43)
[2020-04-04] MEDS: FOLIC ACID 1 MG TAB PO SCH (09:44)
[2020-04-04] MEDS: DIVALPROEX 500MG *ER* TAB PO SCH (09:44)
[2020-04-04] MEDS: LORazepam 2 MG/ML VIAL IV PRN (15:51)
--- NOTE | 2020-04-04 16:19 | IPNPDOC ---
Date Seen The patient was seen on 04/04/20. Progress Note SUBJECTIVE: Fall this AM, did not hit head. Very unsteady and shaky when standing. Awake and alert, follows commands. Pupils still sluggish but no seizures overnight. Improved some today. Denies chest pain, n/v/d. OBJECTIVE: VITAL SIGNS: Please see below PHYSICAL EXAMINATION: CONSTITUTIONAL: No acute distress, resting comfortably, AAO x 3 EYES: PERRLA, EOM intact HENT, MOUTH: Normocephalic, atraumatic, moist mucous membranes NECK: SUPPLE, no JVD, no lymphadenopathy, no carotid bruit CV: Regular rate and rhythm, S1S2 normal, no murmurs/rubs/gallops RESPIRATORY: Clear to auscultation bilaterally, no rales/rhonchi/wheezes GI: BS positive in 4 quadrants, soft, nontender, nondistended, no rebound or guarding, no organomegaly : Deferred MUSCULOSKELETAL: Normal ROM. No cyanosis, clubbing, swelling, joint deformity, extremity edema INTEGUMENTARY: Intact, no rashes, no lesions, no erythema NEUROLOGIC: CN 2-12 intact. L pupil 4 mm, R pupil 3 mm both sluggish. Strength 5/5 in all extremities; however, shaky and at times rigid. Unsteady on his feet. Reflexes in all extremities intact, sensory to sharp and dull present, motor int act. CURRENT MEDICATIONS: Please see below LABORATORY DATA: Please see below IMAGING: None ASSESSMENT: 54 year old male with PMH of TBI, seizure disorder, sarcoidosis, alcohol use disorder, CAD and other medical problems admitted for intractable seizures, JOSE DAVID and lactic acidosis. PLAN: 1. Seizures likely 2/2 to alcohol withdrawal and noncompliance with his depakote. -No seizures overnight. -Depakote level 94.9 (normally levels in office are 85-100). On admission 55 -C/w PT/OT, keppra, valproic acid -Ativan PRN for seizures 2. Acute metabolic encephalopathy 2/2 to several seizures. Improving slowly. -Still lethargic from events on admission, more alert today, eating better but remains on D5W 1/2 NSS -No doses of ativan given since ER. -Monitor closely. 3. Hypoglycemia 2/2 to not eating. Resolved with D5W 1/2 NSS currently running -C/w D5W 1/2 NSS low rate. -F/u BS checks Q6 hrs. 4. JOSE DAVID likely prerenal due to dehydration. Resolved with IVFs. -Daily CMP -C/w holding ACEi 5. Alcohol use disorder -No signs of withdrawl. - CIWA protocol 6. Sarcoidosis -continue home meds on weekly methotrexate and prednisone. 7. TBI/ neuropathy/radiculopathy -continue lyrica, -started recently on cymbalta. 8. CAD s/p stents -continue asa,ezetimibe, not on statin. 9. Hyperlipidemia -ezetimibe only. Not on rosuvastatin any more was on it in March 12. H/o RLS 11. DVT px. heparin SC DISPOSITION: Plan is discharge home when medically improved. C/w PT/OT VS, I&O, 24H, Fishbone Vital Signs/I&O Vital Signs Date Time Temp Pulse Resp B/P (MAP) Pulse Ox O2 Delivery O2 Flow Rate FiO2 04/04/20 12:00 94 124/84 04/04/20 12:00 96.0 20 99 Room Air I&O- Last 24 Hours up to 6 AM 04/04/20 06:00 Intake Total 2050 ml Output Total 1300 ml Balance 750 ml Laboratory Data 24H LABS Laboratory Tests 2 04/03/20 17:15: Bedside Glucose (Misc Panel) 78 04/04/20 00:08: Bedside Glucose (Misc Panel) 96 04/04/20 03:51: Immature Granulocyte % (Auto) 0.4, Neutrophils (%) (Auto) 53.5, Lymphocytes (%) (Auto) 37.9, Monocytes (%) (Auto) 7.4H, Eosinophils (%) (Auto) 0.4, Basophils (%) (Auto) 0.4, Neutrophils # (Auto) 2.9, Lymphocytes # (Auto) 2.1, Monocytes # (Auto) 0.4, Eosinophils # (Auto) 0.0, Basophils # (Auto) 0.0, Nucleated Red Blood Cells % (auto) 0.0, Anion Gap 8, Glomerular Filtration Rate > 60.0, Calcium Level 8.0L, MA-Obu-V-Type Natriuretic Peptide 2473H, Valproic Acid (Depakene) Level 94.9 04/04/20 05:57: Bedside Glucose (Misc Panel) 76 CBC/BMP Laboratory Tests 04/04/20 03:51 Current Medications Current Medications Medications (Trade) Dose Ordered Sig/Sahnnon Route PRN Reason Start Time Stop Time Status Last Admin Dose Admin Amlodipine Besylate (Norvasc) 2.5 mg DAILY PO 04/04/20 03:45 04/04/20 03:45 Aspirin (Ecotrin) 325 mg DAILY PO 04/03/20 09:00 04/04/20 09:42 Dextrose/Sodium Chloride 1,000 ml @ 75 mls/hr [id number] IV 04/03/20 12:00 04/04/20 04:45 DC 04/04/20 02:09 Divalproex Sodium (Depakote Er) 500 mg BID PO 04/02/20 21:00 04/02/20 17:18 DC Divalproex Sodium (Depakote Er) 500 mg DAILY PO 04/03/20 09:00 04/04/20 09:44 Divalproex Sodium (Depakote Er) 750 mg QHS PO 04/02/20 21:00 04/03/20 21:43 Divalproex Sodium (Depakote) 750 mg QHS PO 04/02/20 21:00 04/02/20 18:04 DC Duloxetine HCl (Cymbalta) 60 mg DAILY PO 04/02/20 09:00 04/04/20 09:43 EZETIMIBE (Zetia) 10 mg QHS PO 04/02/20 21:00 04/03/20 21:43 Folic Acid (Folic Acid) 1 mg DAILY PO 04/03/20 09:00 04/04/20 09:44 Heparin Sodium (Porcine) (Heparin) 5,000 units Q12H SC 04/02/20 21:00 04/03/20 21:43 Home Med (Med Rec Complete!) ASDIRECTED XX 04/02/20 14:00 04/02/20 13:50 DC Levetiracetam (Keppra) 500 mg BID PO 04/02/20 21:00 04/04/20 09:43 Levetiracetam (Keppra) 750 mg BID PO 04/02/20 21:00 04/02/20 17:16 DC Lisinopril (Prinivil) 2.5 mg DAILY PO 04/02/20 09:00 04/02/20 15:41 DC Lorazepam (Ativan) 1 mg STAT STAT IV 04/02/20 13:13 04/02/20 13:14 DC 04/02/20 13:20 Lorazepam (Ativan) 2 mg ASDIRECTED PRN PO SEE PROTOCOL 04/02/20 15:30 04/03/20 01:05 DC 04/02/20 17:41 Lorazepam (Ativan) 2 mg Q2HP PRN IV Seizure or per CIWA 04/02/20 15:00 04/03/20 01:50 DC 04/03/20 01:21 Lorazepam (Ativan) 2 mg Q2HP PRN IV Seizure or per CIWA 04/03/20 01:45 04/04/20 15:51 Lorazepam (Ativan) 2 mg STAT STAT IV 04/02/20 11:14 04/02/20 11:16 DC 04/02/20 11:22 Multivitamins (Theragram-M) 1 tab DAILY PO 04/03/20 09:00 04/04/20 09:42 Ondansetron HCl (ZOFRAN INJection) 4 mg Q6HP PRN IV NAUSEA OR VOMITING 04/02/20 22:00 04/02/20 22:06 Prednisone (Deltasone) 5 mg Q2D PO 04/03/20 09:00 04/03/20 09:48 Pregabalin (Lyrica) 200 mg BID PO 04/02/20 21:00 04/04/20 09:43 Sodium Chloride 1,000 ml @ 100 mls/hr Q10H IV 04/02/20 15:00 04/03/20 12:00 DC 04/03/20 06:55 Sodium Chloride 1,000 ml @ 150 mls/hr Q6H40M IV 04/02/20 13:06 04/02/20 18:00 DC 04/02/20 13:19 Thiamine HCl (Thiamine HCl) 100 mg BID PO 04/02/20 21:00 04/05/20 09:01 04/04/20 09:43 Allergies Coded Allergies: No Known Allergies (Unverified , 02/10/15) Sandra Morales MD Apr 04, 2020 16:19
[2020-04-04] MEDS: EZETIMIBE 10 MG TAB (ZETIA) PO SCH (21:58)
[2020-04-04] MEDS: DIVALPROEX 250MG *ER* TAB PO SCH (21:58)
[2020-04-05] VITALS: BP 142/84
[2020-04-05 04:00] VITALS: BP_SYST 142; BP_DIAS 90; BP_DIAS 92
[2020-04-05 06:03] LABS: BASO % 0.4 % (0.0-1.0); EOS # 0.1 10^3/uL (0.0-0.5); EOS % 0.9 % (0.0-3.0); HEMATOCRIT 42.5 % (42.0-52.0); HEMOGLOBIN 14.4 g/dl (13.5-17.5); LYMPH # 1.7 10^3/uL (1.5-5.0); LYMPH % 30.4 % (24.0-44.0); MEAN CORPUSCULAR HEMOGLOBIN 33.8 pg (27.0-33.0); MEAN CORPUSCULAR HGB CONC 33.9 g/dl (32.0-36.5); MEAN CORPUSCULAR VOLUME 99.8 fl (80.0-96.0); MONO # 0.5 10^3/uL (0.0-0.8); MONO % 8.7 % (0.0-5.0); NEUTROPHILS # 3.3 10^3/uL (1.5-8.5); NEUTROPHILS % 59.1 % (36.0-66.0); PLATELET COUNT, AUTOMATED 109 10^3/uL (150-450); RED BLOOD COUNT 4.26 10^6/uL (4.30-6.10); WHITE BLOOD COUNT 5.5 10^3/uL (4.0-10.0)
[2020-04-05 06:54] LABS: BLOOD UREA NITROGEN 3 MG/DL (7-18); CALCIUM LEVEL 8.2 MG/DL (8.5-10.1); CARBON DIOXIDE LEVEL 28 MEQ/L (21-32); CHLORIDE LEVEL 101 MEQ/L (98-107); CREATININE FOR GFR 0.71 MG/DL (0.70-1.30); GLOMERULAR FILTRATION RATE > 60.0 (>56); GLUCOSE, FASTING 74 MG/DL (70-100); POTASSIUM SERUM 3.2 MEQ/L (3.5-5.1); SODIUM LEVEL 138 MEQ/L (136-145)
[2020-04-05 08:00] VITALS: BP 144/88
[2020-04-05] MEDS: HEPARIN SOD (PORCINE) 5000UNITS/ML 1ML VIAL/SYRINGE SC SCH ×2 (08:52→21:52)
[2020-04-05] MEDS: DIVALPROEX 500MG *ER* TAB PO SCH (08:52)
[2020-04-05] MEDS: FUROSEMIDE 40 MG TAB PO SCH (08:53)
[2020-04-05] MEDS: DULoxetine 30 MG CAP (CYMBALTA) PO SCH (08:53)
[2020-04-05] MEDS: MULTIVITAMINS/MINERALS THERAP 1 TAB PO SCH (08:53)
[2020-04-05] MEDS: THIAMINE 100 MG TAB PO SCH (08:53)
[2020-04-05] MEDS: FOLIC ACID 1 MG TAB PO SCH (08:53)
[2020-04-05] MEDS: levETIRAcetam 250MG TABLET (KEPPRA) PO SCH ×2 (08:53→21:53)
[2020-04-05] MEDS: predniSONE 5 MG TAB PO SCH (08:53)
[2020-04-05] MEDS: ASPIRIN ENTERIC 325 MG TAB PO SCH (08:53)
[2020-04-05] MEDS: PREGABALIN 100 MG CAP (LYRICA) PO SCH ×2 (08:54→21:53)
[2020-04-05] MEDS ORDERED: POTASSIUM CHLORIDE 10 MEQ SR TABLET PO ONE (09:00)
[2020-04-05 12:00] VITALS: BP 130/90
--- NOTE | 2020-04-05 12:26 | IPNPDOC ---
Date Seen The patient was seen on 04/05/20. Progress Note SUBJECTIVE: Slightly confused this AM about why he is here, some difficulty with eating his breakfast. Still unsteady and shaky when standing. Awake and alert, follows commands. Pupils still sluggish, no seizures overnight. Denies chest pain, n/v/d. OBJECTIVE: VITAL SIGNS: Please see below PHYSICAL EXAMINATION: CONSTITUTIONAL: No acute distress, resting comfortably, AAO x 3 EYES: PERRLA, EOM intact HENT, MOUTH: Normocephalic, atraumatic, moist mucous membranes NECK: SUPPLE, no JVD, no lymphadenopathy, no carotid bruit CV: Regular rate and rhythm, S1S2 normal, no murmurs/rubs/gallops RESPIRATORY: Clear to auscultation bilaterally, no rales/rhonchi/wheezes GI: BS positive in 4 quadrants, soft, nontender, nondistended, no rebound or guarding, no organomegaly : Deferred MUSCULOSKELETAL: Normal ROM. No cyanosis, clubbing, swelling, joint deformity, extremity edema INTEGUMENTARY: Intact, no rashes, no lesions, no erythema NEUROLOGIC: CN 2-12 intact. L pupil 3 mm, R pupil 3 mm both sluggish. Strength 5/5 in all extremities; however, shaky and at times rigid. Unsteady on his feet. Reflexes in all extremities intact, sensory to sharp and dull present, motor intact. CURRENT MEDICATIONS: Please see below LABORATORY DATA: Please see below IMAGING: None ASSESSMENT: 54 year old male with PMH of TBI, seizure disorder, sarcoidosis, alcohol use disorder, CAD and other medical problems admitted for intractable seizures, JOSE DAVID and lactic acidosis. PLAN: 1. Seizures likely 2/2 to alcohol withdrawal and noncompliance with his depakote. -No seizures overnight, still lethargic from admission -Depakote level 94.9 (normally levels in office are 85-100). On admission 55 -C/w PT/OT, keppra, valproic acid -Ativan PRN for seizures 2. Acute metabolic encephalopathy 2/2 to several seizures. Improving slowly. -Lethargic from events on admission, even more alert today, remains on D5W 1/2 NSS due to borderline low blood sugars -Monitor closely. 3. Decreased oral intake, likely 2/2 to decreased spatial orientation s/p seizure -Takes a while to chew food and eat -Will order S/S evaluation. -C/w D5W 1/2 NSS low rate. -Will need nursing assistance with meals, encouragement to drink Q2hrs while awake. -F/u BS checks AC/HS. 4. Elevated BNP, r/o CHF . Hx of CAD. -BNP >2000 on admission -Echocardiogram ordered -Low salt diet -Monitor I&O's, daily wt -Lasix started daily 5. Hypokalemia. -S/p 50mEq PO supplement today -F/u daily labs 6. Alcohol use disorder -No signs of withdrawl. - [facility] protocol 7. Sarcoidosis -continue home meds on weekly methotrexate and prednisone. 8. TBI/ neuropathy/radiculopathy -continue lyrica, -started recently on cymbalta. 9. CAD s/p stents -continue asa,ezetimibe, not on statin. 10. Hyperlipidemia -ezetimibe only. Not on rosuvastatin any more was on it in March 13. H/o RLS 12. DVT px. heparin SC DISPOSITION: Plan is discharge home when medically improved. C/w PT[facility]OT [facility]&O Vital Signs Date Time Temp Pulse Resp B/P (MAP) Pulse Ox O2 Delivery O2 Flow Rate FiO2 04/05/20 12:00 97.1 89 18 130/90 (103) 95 Room Air I&O- Last 24 Hours up to 6 AM 04/05/20 06:00 Intake Total 900 ml Output Total 875 ml Balance 25 ml Laboratory Data 24H LABS Laboratory Tests 2 04/05/20 00:08: Bedside Glucose (Misc Panel) 78 04/05/20 04:57: Immature Granulocyte % (Auto) 0.5, Neutrophils (%) (Auto) 59.1, Lymphocytes (%) (Auto) 30.4, Monocytes (%) (Auto) 8.7H, Eosinophils (%) (Auto) 0.9, Basophils (%) (Auto) 0.4, Neutrophils # (Auto) 3.3, Lymphocytes # (Auto) 1.7, Monocytes # (Auto) 0.5, Eosinophils # (Auto) 0.1, Basophils # (Auto) 0.0, Nucleated Red Blood Cells % (auto) 0.0, Anion Gap 9, Glomerular Filtration Rate > 60.0, Calcium Level 8.2L 04/05/20 06:39: Bedside Glucose (Misc Panel) 86 CBC/BMP Laboratory Tests 04/05/20 04:57 Current Medications Current Medications Medications (Trade) Dose Ordered Sig/Shannon Route PRN Reason Start Time Stop Time Status Last Admin Dose Admin Amlodipine Besylate (Norvasc) 2.5 mg DAILY PO 04/04/20 03:45 04/05/20 08:53 Aspirin (Ecotrin) 325 mg DAILY PO 04/03/20 09:00 04/05/20 08:53 Dextrose/Sodium Chloride 1,000 ml @ 75 mls/hr [id number] IV 04/03/20 12:00 04/04/20 04:45 DC 04/04/20 02:09 Divalproex Sodium (Depakote Er) 500 mg BID PO 04/02/20 21:00 04/02/20 17:18 DC Divalproex Sodium (Depakote Er) 500 mg DAILY PO 04/03/20 09:00 04/05/20 08:52 Divalproex Sodium (Depakote Er) 750 mg QHS PO 04/02/20 21:00 04/04/20 21:58 Divalproex Sodium (Depakote) 750 mg QHS PO 04/02/20 21:00 04/02/20 18:04 DC Duloxetine HCl (Cymbalta) 60 mg DAILY PO 04/02/20 09:00 04/05/20 08:53 EZETIMIBE (Zetia) 10 mg QHS PO 04/02/20 21:00 04/04/20 21:58 Folic Acid (Folic Acid) 1 mg DAILY PO 04/03/20 09:00 04/05/20 08:53 Furosemide (Lasix) 40 mg DAILY PO 04/05/20 09:00 04/05/20 08:53 Heparin Sodium (Porcine) (Heparin) 5,000 units Q12H SC 04/02/20 21:00 04/05/20 08:52 Home Med (Med Rec Complete!) ASDIRECTED XX 04/02/20 14:00 04/02/20 13:50 DC Levetiracetam (Keppra) 500 mg BID PO 04/02/20 21:00 04/05/20 08:53 Levetiracetam (Keppra) 750 mg BID PO 04/02/20 21:00 04/02/20 17:16 DC Lisinopril (Prinivil) 2.5 mg DAILY PO 04/02/20 09:00 04/02/20 15:41 DC Lorazepam (Ativan) 1 mg STAT STAT IV 04/02/20 13:13 04/02/20 13:14 DC 04/02/20 13:20 Lorazepam (Ativan) 2 mg ASDIRECTED PRN PO SEE PROTOCOL 04/02/20 15:30 04/03/20 01:05 DC 04/02/20 17:41 Lorazepam (Ativan) 2 mg Q2HP PRN IV Seizure or per CIWA 04/02/20 15:00 04/03/20 01:50 DC 04/03/20 01:21 Lorazepam (Ativan) 2 mg Q2HP PRN IV Seizure or per CIWA 04/03/20 01:45 04/04/20 15:51 Lorazepam (Ativan) 2 mg STAT STAT IV 04/02/20 11:14 04/02/20 11:16 DC 04/02/20 11:22 Multivitamins (Theragram-M) 1 tab DAILY PO 04/03/20 09:00 04/05/20 08:53 Ondansetron HCl (ZOFRAN INJection) 4 mg Q6HP PRN IV NAUSEA OR VOMITING 04/02/20 22:00 04/02/20 22:06 Prednisone (Deltasone) 5 mg Q2D PO 04/03/20 09:00 04/05/20 08:53 Pregabalin (Lyrica) 200 mg BID PO 04/02/20 21:00 04/05/20 08:54 Sodium Chloride 1,000 ml @ 100 mls/hr Q10H IV 04/02/20 15:00 04/03/20 12:00 DC 04/03/20 06:55 Sodium Chloride 1,000 ml @ 150 mls/hr Q6H40M IV 04/02/20 13:06 04/02/20 18:00 DC 04/02/20 13:19 Thiamine HCl (Thiamine HCl) 100 mg BID PO 04/02/20 21:00 04/05/20 09:01 DC 04/05/20 08:53 Allergies Coded Allergies: No Known Allergies (Unverified , 5/11/15) Sandra Morales MD Apr 05, 2020 12:26
[2020-04-05 16:00] VITALS: BP 125/84
[2020-04-05 20:00] VITALS: BP 122/83
[2020-04-05] MEDS: EZETIMIBE 10 MG TAB (ZETIA) PO SCH (21:53)
[2020-04-05] MEDS: DIVALPROEX 250MG *ER* TAB PO SCH (21:53)
[2020-04-06] VITALS: BP 130/95
[2020-04-06 04:00] VITALS: BP 134/89
[2020-04-06 04:54] LABS: BASO % 0.5 % (0.0-1.0); EOS # 0.1 10^3/uL (0.0-0.5); EOS % 1.2 % (0.0-3.0); HEMATOCRIT 40.2 % (42.0-52.0); HEMOGLOBIN 13.4 g/dl (13.5-17.5); LYMPH # 1.8 10^3/uL (1.5-5.0); LYMPH % 41.1 % (24.0-44.0); MEAN CORPUSCULAR HEMOGLOBIN 33.5 pg (27.0-33.0); MEAN CORPUSCULAR HGB CONC 33.3 g/dl (32.0-36.5); MEAN CORPUSCULAR VOLUME 100.5 fl (80.0-96.0); MONO # 0.5 10^3/uL (0.0-0.8); MONO % 10.6 % (0.0-5.0); NEUTROPHILS % 46.1 % (36.0-66.0); WHITE BLOOD COUNT 4.3 10^3/uL (4.0-10.0)
[2020-04-06 05:11] LABS: BLOOD UREA NITROGEN 4 MG/DL (7-18); CALCIUM LEVEL 8.3 MG/DL (8.5-10.1); CARBON DIOXIDE LEVEL 30 MEQ/L (21-32); CHLORIDE LEVEL 102 MEQ/L (98-107); CREATININE FOR GFR 0.74 MG/DL (0.70-1.30); GLOMERULAR FILTRATION RATE > 60.0 (>56); GLUCOSE, FASTING 90 MG/DL (70-100); POTASSIUM SERUM 3.7 MEQ/L (3.5-5.1); SODIUM LEVEL 139 MEQ/L (136-145)
[2020-04-06 05:35] LABS: PLATELET COUNT, AUTOMATED 89 10^3/uL (150-450)
[2020-04-06 08:00] VITALS: BP_SYST 158; BP_DIAS 90; BP_DIAS 95
[2020-04-06] MEDS: DIVALPROEX 500MG *ER* TAB PO SCH (09:52)
[2020-04-06] MEDS: ASPIRIN ENTERIC 325 MG TAB PO SCH (09:52)
[2020-04-06] MEDS: FOLIC ACID 1 MG TAB PO SCH (09:52)
[2020-04-06] MEDS: levETIRAcetam 250MG TABLET (KEPPRA) PO SCH ×2 (09:53→20:53)
[2020-04-06] MEDS: HEPARIN SOD (PORCINE) 5000UNITS/ML 1ML VIAL/SYRINGE SC SCH ×2 (09:53→21:29)
[2020-04-06] MEDS: FUROSEMIDE 40 MG TAB PO SCH (09:53)
[2020-04-06] MEDS: DULoxetine 30 MG CAP (CYMBALTA) PO SCH (09:53)
[2020-04-06] MEDS: MULTIVITAMINS/MINERALS THERAP 1 TAB PO SCH (09:53)
[2020-04-06] MEDS: PREGABALIN 100 MG CAP (LYRICA) PO SCH ×2 (09:53→20:54)
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
[2020-04-06] MEDS: CARVedilol 6.25 MG TAB PO SCH ×2 (12:06→20:54)
[2020-04-06] MEDS: LORazepam 2 MG/ML VIAL IV PRN (16:16)
[2020-04-06 20:00] VITALS: BP 113/78
[2020-04-06] MEDS: EZETIMIBE 10 MG TAB (ZETIA) PO SCH (20:54)
[2020-04-06] MEDS: DIVALPROEX 250MG *ER* TAB PO SCH (20:54)
[2020-04-07 04:00] VITALS: BP 127/92
[2020-04-07 05:27] LABS: BASO % 0.8 % (0.0-1.0); EOS # 0.1 10^3/uL (0.0-0.5); EOS % 1.7 % (0.0-3.0); HEMATOCRIT 40.9 % (42.0-52.0); HEMOGLOBIN 13.4 g/dl (13.5-17.5); LYMPH # 1.5 10^3/uL (1.5-5.0); LYMPH % 40.5 % (24.0-44.0); MEAN CORPUSCULAR HEMOGLOBIN 33.4 pg (27.0-33.0); MEAN CORPUSCULAR HGB CONC 32.8 g/dl (32.0-36.5); MONO # 0.5 10^3/uL (0.0-0.8); MONO % 14.9 % (0.0-5.0); NEUTROPHILS # 1.5 10^3/uL (1.5-8.5); NEUTROPHILS % 41.3 % (36.0-66.0); RED BLOOD COUNT 4.01 10^6/uL (4.30-6.10); WHITE BLOOD COUNT 3.6 10^3/uL (4.0-10.0)
[2020-04-07 05:28] LABS: PLATELET COUNT, AUTOMATED 83 10^3/uL (150-450)
[2020-04-07 05:42] LABS: BLOOD UREA NITROGEN 6 MG/DL (7-18); CALCIUM LEVEL 8.3 MG/DL (8.5-10.1); CARBON DIOXIDE LEVEL 32 MEQ/L (21-32); CHLORIDE LEVEL 102 MEQ/L (98-107); CREATININE FOR GFR 0.77 MG/DL (0.70-1.30); GLOMERULAR FILTRATION RATE > 60.0 (>56); GLUCOSE, FASTING 81 MG/DL (70-100); POTASSIUM SERUM 3.7 MEQ/L (3.5-5.1); SODIUM LEVEL 140 MEQ/L (136-145)
[2020-04-07] MEDS: DULoxetine 30 MG CAP (CYMBALTA) PO SCH (08:17)
[2020-04-07] MEDS: levETIRAcetam 250MG TABLET (KEPPRA) PO SCH ×2 (08:18→20:20)
[2020-04-07] MEDS: PREGABALIN 100 MG CAP (LYRICA) PO SCH ×2 (08:18→20:20)
[2020-04-07] MEDS: FOLIC ACID 1 MG TAB PO SCH (08:18)
[2020-04-07] MEDS: ASPIRIN 81 MG ENTERIC TAB PO SCH (08:18)
[2020-04-07] MEDS: CARVedilol 6.25 MG TAB PO SCH ×2 (08:18→20:21)
[2020-04-07] MEDS: DIVALPROEX 500MG *ER* TAB PO SCH (08:18)
[2020-04-07] MEDS: MULTIVITAMINS/MINERALS THERAP 1 TAB PO SCH (08:18)
[2020-04-07] MEDS: predniSONE 5 MG TAB PO SCH (08:18)
[2020-04-07] MEDS: HEPARIN SOD (PORCINE) 5000UNITS/ML 1ML VIAL/SYRINGE SC SCH (08:19)
[2020-04-07 09:11] LABS: HEPATITIS A ANTIBODY IGM NEGATIVE (NEGATIVE); HEPATITIS B CORE ANTIBODY IGM NEGATIVE (NEGATIVE); HEPATITIS B SURFACE ANTIGEN NEGATIVE (NEGATIVE); HEPATITIS C VIRUS ABY INDEX 0.1 INDEX (<0.8); HIV 1&2 SCREEN CENTAUR NEGATIVE (NEGATIVE)
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
--- NOTE | 2020-04-07 19:03 | ECHO ---
DATE OF PROCEDURE: 04/04/2020 REFERRING PHYSICIAN: Dr. Sandra Morales INDICATION: Congestive heart failure. Height 173 cm, weight 60 kg. DIMENSIONS: IVS: 1.0 LV: 3.8 LVPW: 1.0 LA: 2.6 IVC: 1.8 Mitral E wave velocity: 69 A wave: 44 E prime septal: 4.5 E prime lateral: 5.1 FINDINGS: The study is of fair technical quality with somewhat limited visualization. The patient is in sinus rhythm. Normal left ventricular (LV) size with normal LV systolic function, estimated left ventricular ejection fraction (LVEF) 55-60%. Right ventricle also appears normal size and systolic function. Both atria appear normal. Aortic valve is tricuspid. It is mildly sclerotic and based on some views, there might be even suspicion for possible vegetations. Mitral valve appears normal. Tricuspid and pulmonic valves also appear normal. No pericardial effusion is noted. Inferior vena cava is normal size. Aortic root and aortic arch appear normal. Abdominal aorta was not seen. Doppler interrogation reveals no aortic stenosis or insufficiency. There is trace mitral insufficiency. Tricuspid valve is functionally competent. There is trace pulmonic insufficiency. Mitral inflow pattern and tissue Doppler imaging of mitral annulus revealed grade 2 diastolic dysfunction. CONCLUSIONS: 1. Study is of fair technical quality, the patient is in sinus rhythm. 2. Normal left ventricular (LV) size with preserved left LV systolic function and likely grade 2 diastolic dysfunction. 3. Aortic sclerosis with no stenosis or insufficiency. On some views, I cannot completely rule out presence of small vegetations. 4. Trace mitral and trace pulmonic insufficiency. 5. Normal central venous pressure. 6. Unable to estimate pulmonary artery pressure.
[2020-04-07 20:00] VITALS: BP 129/84
[2020-04-07] MEDS: DIVALPROEX 250MG *ER* TAB PO SCH (20:20)
[2020-04-07] MEDS: EZETIMIBE 10 MG TAB (ZETIA) PO SCH (20:20)
[2020-04-08 04:00] VITALS: BP 127/83
[2020-04-08 05:11] LABS: BASO % 0.8 % (0.0-1.0); EOS # 0.1 10^3/uL (0.0-0.5); EOS % 1.7 % (0.0-3.0); HEMATOCRIT 45.4 % (42.0-52.0); HEMOGLOBIN 14.9 g/dl (13.5-17.5); LYMPH # 1.7 10^3/uL (1.5-5.0); LYMPH % 47.2 % (24.0-44.0); MEAN CORPUSCULAR HEMOGLOBIN 33.9 pg (27.0-33.0); MEAN CORPUSCULAR HGB CONC 32.8 g/dl (32.0-36.5); MEAN CORPUSCULAR VOLUME 103.2 fl (80.0-96.0); MONO # 0.6 10^3/uL (0.0-0.8); MONO % 15.8 % (0.0-5.0); NEUTROPHILS # 1.2 10^3/uL (1.5-8.5); NEUTROPHILS % 33.7 % (36.0-66.0); WHITE BLOOD COUNT 3.6 10^3/uL (4.0-10.0)
[2020-04-08 05:12] LABS: PLATELET COUNT, AUTOMATED 87 10^3/uL (150-450)
[2020-04-08 05:31] LABS: BLOOD UREA NITROGEN 9 MG/DL (7-18); CALCIUM LEVEL 9.1 MG/DL (8.5-10.1); CARBON DIOXIDE LEVEL 31 MEQ/L (21-32); CHLORIDE LEVEL 102 MEQ/L (98-107); CREATININE FOR GFR 0.83 MG/DL (0.70-1.30); GLOMERULAR FILTRATION RATE > 60.0 (>56); GLUCOSE, FASTING 74 MG/DL (70-100); POTASSIUM SERUM 3.9 MEQ/L (3.5-5.1); SODIUM LEVEL 136 MEQ/L (136-145)
[2020-04-08 08:00] VITALS: BP 102/68
[2020-04-08] MEDS: PREGABALIN 100 MG CAP (LYRICA) PO SCH ×2 (08:51→20:29)
[2020-04-08] MEDS: ASPIRIN 81 MG ENTERIC TAB PO SCH (08:51)
[2020-04-08] MEDS: levETIRAcetam 250MG TABLET (KEPPRA) PO SCH ×2 (08:51→20:29)
[2020-04-08] MEDS: DIVALPROEX 500MG *ER* TAB PO SCH (08:51)
[2020-04-08] MEDS: CARVedilol 6.25 MG TAB PO SCH ×2 (08:51→20:33)
[2020-04-08] MEDS: FOLIC ACID 1 MG TAB PO SCH (08:51)
[2020-04-08] MEDS: MULTIVITAMINS/MINERALS THERAP 1 TAB PO SCH (08:51)
[2020-04-08] MEDS: DULoxetine 30 MG CAP (CYMBALTA) PO SCH (08:51)
[2020-04-08] MEDS ORDERED: FOLI1TAB11 PO (11:43)
[2020-04-08] MEDS ORDERED: KEPP250T5 PO (11:43)
[2020-04-08] MEDS ORDERED: DIVA500T9 PO (11:43)
[2020-04-08] MEDS ORDERED: CARV6.25 PO (11:43)
[2020-04-08] MEDS ORDERED: VITMTA PO (11:43)
[2020-04-08] MEDS ORDERED: THIA100T7 PO (11:43)
[2020-04-08] MEDS ORDERED: THIAMINE 100 MG TAB PO ONE (11:45)
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
[2020-04-08 16:00] VITALS: BP 111/73
[2020-04-08 20:00] VITALS: BP 126/86
[2020-04-08] MEDS: DIVALPROEX 250MG *ER* TAB PO SCH (20:29)
[2020-04-08] MEDS: EZETIMIBE 10 MG TAB (ZETIA) PO SCH (20:29)
[2020-04-09 04:00] VITALS: BP 123/80
[2020-04-09 06:15] LABS: BASO % 0.5 % (0.0-1.0); EOS # 0.1 10^3/uL (0.0-0.5); EOS % 1.5 % (0.0-3.0); HEMATOCRIT 41.5 % (42.0-52.0); HEMOGLOBIN 13.7 g/dl (13.5-17.5); LYMPH # 1.6 10^3/uL (1.5-5.0); LYMPH % 40.5 % (24.0-44.0); MEAN CORPUSCULAR HEMOGLOBIN 33.4 pg (27.0-33.0); MEAN CORPUSCULAR VOLUME 101.2 fl (80.0-96.0); MONO # 0.8 10^3/uL (0.0-0.8); MONO % 21.1 % (0.0-5.0); NEUTROPHILS # 1.4 10^3/uL (1.5-8.5); NEUTROPHILS % 35.9 % (36.0-66.0); PLATELET COUNT, AUTOMATED 90 10^3/uL (150-450); WHITE BLOOD COUNT 3.9 10^3/uL (4.0-10.0)
[2020-04-09 06:37] LABS: BLOOD UREA NITROGEN 8 MG/DL (7-18); CALCIUM LEVEL 9.1 MG/DL (8.5-10.1); CARBON DIOXIDE LEVEL 32 MEQ/L (21-32); CHLORIDE LEVEL 103 MEQ/L (98-107); CREATININE FOR GFR 0.72 MG/DL (0.70-1.30); GLOMERULAR FILTRATION RATE > 60.0 (>56); GLUCOSE, FASTING 74 MG/DL (70-100); POTASSIUM SERUM 3.9 MEQ/L (3.5-5.1); SODIUM LEVEL 139 MEQ/L (136-145)
[2020-04-09 07:56] VITALS: BP 120/79
[2020-04-09] MEDS ORDERED: THIAMINE 100 MG TAB PO SCH (09:00)
[2020-04-09] MEDS: FOLIC ACID 1 MG TAB PO SCH (09:04)
[2020-04-09] MEDS: DIVALPROEX 500MG *ER* TAB PO SCH (09:04)
[2020-04-09 09:05] VITALS: BP 120/79
[2020-04-09] MEDS: DULoxetine 30 MG CAP (CYMBALTA) PO SCH (09:05)
[2020-04-09] MEDS: predniSONE 5 MG TAB PO SCH (09:05)
[2020-04-09] MEDS: PREGABALIN 100 MG CAP (LYRICA) PO SCH (09:05)
[2020-04-09] MEDS: MULTIVITAMINS/MINERALS THERAP 1 TAB PO SCH (09:05)
[2020-04-09] MEDS: ASPIRIN 81 MG ENTERIC TAB PO SCH (09:05)
[2020-04-09] MEDS: levETIRAcetam 250MG TABLET (KEPPRA) PO SCH (09:05)
[2020-04-09] MEDS: CARVedilol 6.25 MG TAB PO SCH (09:05)
[2020-04-09] MEDS ORDERED: THIA100T7 PO (11:42)
[2020-04-09] MEDS ORDERED: DIVA500T9 PO (11:42)
[2020-04-09] MEDS ORDERED: CARV6.25 PO (11:42)
[2020-04-09] MEDS ORDERED: KEPP250T5 PO (11:42)
[2020-04-09] MEDS ORDERED: MULTCAP PO (11:42)
[2020-04-09] MEDS ORDERED: FOLI1TAB11 PO (11:42)
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
[2020-04-09] MEDS ORDERED: DEPA500T2 PO (15:17)
[2020-04-10 14:08] LABS: UNFRACTIONATED HEPARIN HI DOSE 1 % (0-20); UNFRACTIONATED HEPARIN LOW DOS 3 % (0-20)
== END 2020-04-09 16:24 | disposition home or self-care (01) | DRG 101 ==
LOC: EDBD 10:56 → M ED 10:56 → M ED INP 14:56 → ENRESERV 15:54 → M PCU 17:15
PROVIDERS: ADMIT Internal Medicine Nephrology; ATTEND Internal Medicine
DX: G40.509 Epileptic seizures related to external causes, not intractable, without status epilepticus (principal); E87.2 Acidosis; N17.9 Acute kidney failure, unspecified; D86.9 Sarcoidosis, unspecified; F10.10 Alcohol abuse, uncomplicated; I25.10 Atherosclerotic heart disease of native coronary artery without angina pectoris; E78.5 Hyperlipidemia, unspecified; I10 Essential (primary) hypertension; N52.9 Male erectile dysfunction, unspecified; E29.1 Testicular hypofunction; G62.9 Polyneuropathy, unspecified; M47.816 Spondylosis without myelopathy or radiculopathy, lumbar region; M51.16 Intervertebral disc disorders with radiculopathy, lumbar region; Z79.82 Long term (current) use of aspirin; Z87.820 Personal history of traumatic brain injury; Z79.52 Long term (current) use of systemic steroids; Z95.5 Presence of coronary angioplasty implant and graft; Z79.899 Other long term (current) drug therapy; R73.9 Hyperglycemia, unspecified; G25.81 Restless legs syndrome; Z91.14 Patient's other noncompliance with medication regimen; R26.81 Unsteadiness on feet; E87.6 Hypokalemia; D69.6 Thrombocytopenia, unspecified

== ENCOUNTER 2020-04-27 16:04 | Inpatient (IN) | payer MEDICARE, OTHER ==
[~2020-04-27 16:04] MED LIST changes: +CARV6.25 PO; +DEPA500T2 PO; +KEPP250T5 PO; -LISINOPRIL *2.5 MG* TAB PO SCH; +MULTCAP PO; +REST0.05 OU; +THIA100T7 PO; +VITMTA PO
[2020-04-27] MEDS ORDERED: THIAMINE 200MG/2ML VIAL (J3411 PER 100MG) ONE (16:05)
[2020-04-27] MEDS ORDERED: FOLIC ACID 1MG/0.2ML VIAL ONE (16:05)
[2020-04-27] MEDS ORDERED: MVI -ADULT INJECTION 10ML VIAL ONE (16:05)
[2020-04-28] MEDS ORDERED: OXAZEPAM 15 MG CAP As Ordered ONE (00:31)
[2020-04-28] MEDS ORDERED: LORazepam 2 MG/ML VIAL As Ordered ONE ×2 (02:23→20:24)
[2020-04-28] MEDS ORDERED: DIVALPROEX 500MG *ER* TAB ONE (04:05)
[2020-04-28] MEDS ORDERED: hydrOXYzine 25 MG TAB ONE (04:05)
[2020-04-28] MEDS ORDERED: levETIRAcetam 250MG TABLET (KEPPRA) ONE (04:05)
[2020-04-28] MEDS ORDERED: LISINOPRIL *2.5 MG* TAB ONE (04:05)
[2020-04-28] MEDS ORDERED: LORazepam 2 MG/ML VIAL ONE ×2 (04:05→12:31)
[2020-04-28] MEDS ORDERED: FOLIC ACID 1 MG TAB ONE (04:05)
[2020-04-28] MEDS ORDERED: THIAMINE 100 MG TAB ONE (04:05)
[2020-04-28] MEDS ORDERED: CARVedilol 6.25 MG TAB ONE (04:05)
[2020-04-28] MEDS ORDERED: MULTIVITAMINS/MINERALS THERAP 1 TAB ONE (04:05)
[2020-04-28] MEDS ORDERED: OXAZEPAM 15 MG CAP ONE (12:31)
[2020-04-28] MEDS ORDERED: FOLIC ACID 1 MG TAB As Ordered ONE (16:05)
[2020-04-28] MEDS ORDERED: MULTIVITAMINS/MINERALS THERAP 1 TAB As Ordered ONE (16:05)
[2020-04-28] MEDS ORDERED: THIAMINE 100 MG TAB As Ordered ONE (16:05)
[2020-04-28] MEDS ORDERED: LISINOPRIL *2.5 MG* TAB As Ordered ONE (18:05)
[2020-04-28] MEDS ORDERED: levETIRAcetam 250MG TABLET (KEPPRA) As Ordered ONE (20:19)
[2020-04-28] MEDS ORDERED: DIVALPROEX 500MG *ER* TAB As Ordered ONE (20:19)
[2020-04-28] MEDS ORDERED: hydrOXYzine 25 MG TAB As Ordered ONE (20:19)
[2020-04-28] MEDS ORDERED: CARVedilol 6.25 MG TAB As Ordered ONE (20:19)
[2020-04-29] MEDS ORDERED: MULTIVITAMINS/MINERALS THERAP 1 TAB As Ordered ONE (11:48)
[2020-04-29] MEDS ORDERED: LISINOPRIL *2.5 MG* TAB As Ordered ONE (11:48)
[2020-04-29] MEDS ORDERED: THIAMINE 100 MG TAB As Ordered ONE (11:48)
[2020-04-29] MEDS ORDERED: CARVedilol 6.25 MG TAB As Ordered ONE ×2 (11:48→20:25)
[2020-04-29] MEDS ORDERED: DIVALPROEX 500MG *ER* TAB As Ordered ONE ×2 (11:48→20:41)
[2020-04-29] MEDS ORDERED: FOLIC ACID 1 MG TAB As Ordered ONE (11:48)
[2020-04-29] MEDS ORDERED: levETIRAcetam 250MG TABLET (KEPPRA) As Ordered ONE (11:49)
[2020-04-29] MEDS ORDERED: hydrOXYzine 25 MG TAB As Ordered ONE (20:24)
[2020-04-29] MEDS ORDERED: CEPHALEXIN 500 MG CAP As Ordered ONE (20:24)
[2020-04-30] MEDS ORDERED: levETIRAcetam 250MG TABLET (KEPPRA) ONE ×2 (09:31→20:59)
[2020-04-30] MEDS ORDERED: CEPHALEXIN 500 MG CAP ONE (09:31)
[2020-04-30] MEDS ORDERED: LISINOPRIL *2.5 MG* TAB ONE (09:31)
[2020-04-30] MEDS ORDERED: THIAMINE 100 MG TAB ONE (09:31)
[2020-04-30] MEDS ORDERED: CARVedilol 6.25 MG TAB ONE ×2 (09:31→20:59)
[2020-04-30] MEDS ORDERED: FOLIC ACID 1 MG TAB ONE (09:31)
[2020-04-30] MEDS ORDERED: MULTIVITAMINS/MINERALS THERAP 1 TAB ONE (09:31)
[2020-04-30] MEDS ORDERED: THIAMINE 100 MG TAB As Ordered ONE (09:31)
[2020-04-30] MEDS ORDERED: MULTIVITAMINS/MINERALS THERAP 1 TAB As Ordered ONE (09:31)
[2020-04-30] MEDS ORDERED: CARVedilol 6.25 MG TAB As Ordered ONE ×2 (09:32→20:59)
[2020-04-30] MEDS ORDERED: FOLIC ACID 1 MG TAB As Ordered ONE (09:32)
[2020-04-30] MEDS ORDERED: CEPHALEXIN 500 MG CAP As Ordered ONE (09:32)
[2020-04-30] MEDS ORDERED: DIVALPROEX 250MG *ER* TAB As Ordered ONE ×2 (09:35→21:09)
[2020-04-30] MEDS ORDERED: DIVALPROEX 250MG *ER* TAB ONE ×2 (09:35→21:09)
[2020-04-30] MEDS ORDERED: levETIRAcetam 250MG TABLET (KEPPRA) As Ordered ONE ×2 (09:41→21:05)
[2020-04-30] MEDS ORDERED: LISINOPRIL *2.5 MG* TAB As Ordered ONE (09:41)
[2020-04-30] MEDS ORDERED: POTASSIUM CHLORIDE 10 MEQ SR TABLET ONE (14:02)
[2020-04-30] MEDS ORDERED: POTASSIUM CHLORIDE 10 MEQ SR TABLET As Ordered ONE (14:02)
[2020-04-30] MEDS ORDERED: LORazepam 2 MG/ML VIAL ONE ×2 (17:45→22:59)
[2020-04-30] MEDS ORDERED: LORazepam 2 MG/ML VIAL As Ordered ONE ×2 (17:45→22:59)
[2020-04-30] MEDS ORDERED: DIVALPROEX 500MG *ER* TAB ONE (20:59)
[2020-04-30] MEDS ORDERED: hydrOXYzine 25 MG TAB ONE (20:59)
[2020-04-30] MEDS ORDERED: hydrOXYzine 25 MG TAB As Ordered ONE (21:05)
[2020-04-30] MEDS ORDERED: DIVALPROEX 500MG *ER* TAB As Ordered ONE (21:08)
[2020-05-01] MEDS ORDERED: RAMELTEON 8 MG TAB (ROZEREM) ONE ×2 (00:10→19:50)
[2020-05-01] MEDS ORDERED: RAMELTEON 8 MG TAB (ROZEREM) As Ordered ONE ×2 (00:10→19:50)
[2020-05-01] MEDS ORDERED: LORazepam 2 MG TAB ONE ×2 (02:20→08:08)
[2020-05-01] MEDS ORDERED: cloNIDine 0.1 MG TAB As Ordered ONE (02:20)
[2020-05-01] MEDS ORDERED: cloNIDine 0.1 MG TAB ONE (02:20)
[2020-05-01] MEDS ORDERED: LORazepam 2 MG TAB As Ordered ONE ×3 (02:21→08:08)
[2020-05-01] MEDS ORDERED: DIVALPROEX 250MG *ER* TAB ONE (10:23)
[2020-05-01] MEDS ORDERED: levETIRAcetam 250MG TABLET (KEPPRA) ONE ×2 (12:13→19:50)
[2020-05-01] MEDS ORDERED: FOLIC ACID 1 MG TAB ONE (12:13)
[2020-05-01] MEDS ORDERED: DIVALPROEX 500MG *ER* TAB ONE ×3 (12:13→19:53)
[2020-05-01] MEDS ORDERED: MULTIVITAMINS/MINERALS THERAP 1 TAB As Ordered ONE (12:13)
[2020-05-01] MEDS ORDERED: MULTIVITAMINS/MINERALS THERAP 1 TAB ONE (12:13)
[2020-05-01] MEDS ORDERED: THIAMINE 100 MG TAB ONE (12:13)
[2020-05-01] MEDS ORDERED: levETIRAcetam 250MG TABLET (KEPPRA) As Ordered ONE ×2 (12:14→19:50)
[2020-05-01] MEDS ORDERED: THIAMINE 100 MG TAB As Ordered ONE (12:14)
[2020-05-01] MEDS ORDERED: CARVedilol 6.25 MG TAB As Ordered ONE ×2 (12:14→19:50)
[2020-05-01] MEDS ORDERED: LISINOPRIL *2.5 MG* TAB As Ordered ONE ×2 (12:15→19:50)
[2020-05-01] MEDS ORDERED: FOLIC ACID 1 MG TAB As Ordered ONE (12:15)
[2020-05-01] MEDS ORDERED: DIVALPROEX 500MG *ER* TAB As Ordered ONE ×4 (12:15→19:54)
[2020-05-01] MEDS ORDERED: LISINOPRIL *2.5 MG* TAB ONE (19:50)
[2020-05-01] MEDS ORDERED: hydrOXYzine 25 MG TAB As Ordered ONE (19:50)
[2020-05-01] MEDS ORDERED: hydrOXYzine 25 MG TAB ONE (19:50)
[2020-05-01] MEDS ORDERED: CARVedilol 6.25 MG TAB ONE (19:50)
[2020-05-02] MEDS ORDERED: MULTIVITAMINS/MINERALS THERAP 1 TAB As Ordered ONE (08:05)
[2020-05-02] MEDS ORDERED: THIAMINE 100 MG TAB As Ordered ONE (08:05)
[2020-05-02] MEDS ORDERED: levETIRAcetam 250MG TABLET (KEPPRA) As Ordered ONE ×2 (08:06→20:28)
[2020-05-02] MEDS ORDERED: FOLIC ACID 1 MG TAB As Ordered ONE (08:06)
[2020-05-02] MEDS ORDERED: DIVALPROEX 500MG *ER* TAB As Ordered ONE (08:06)
[2020-05-03] MEDS ORDERED: FOLIC ACID 1 MG TAB As Ordered ONE (08:32)
[2020-05-03] MEDS ORDERED: DIVALPROEX 500 MG TAB As Ordered ONE (08:35)
[2020-05-03] MEDS ORDERED: levETIRAcetam 250MG TABLET (KEPPRA) As Ordered ONE (08:36)
[2020-05-03] MEDS ORDERED: MULTIVITAMINS/MINERALS THERAP 1 TAB As Ordered ONE (08:36)
[2020-05-03] MEDS ORDERED: THIAMINE 100 MG TAB As Ordered ONE (08:37)
[2020-05-03] MEDS ORDERED: CARVedilol 6.25 MG TAB As Ordered ONE (08:37)
[2020-05-03] MEDS ORDERED: lisinopriL 5 MG TAB As Ordered ONE (08:39)
[2020-05-23 17:16] LABS: BASO % 0.4 % (0.0-1.0); EOS % 0.4 % (0.0-3.0); HEMATOCRIT 40.1 % (42.0-52.0); HEMOGLOBIN 13.5 g/dl (13.5-17.5); LYMPH # 2.9 10^3/uL (1.5-5.0); LYMPH % 63.7 % (24.0-44.0); MEAN CORPUSCULAR HGB CONC 33.7 g/dl (32.0-36.5); MONO # 0.5 10^3/uL (0.0-0.8); MONO % 11.2 % (0.0-5.0); NEUTROPHILS # 1.1 10^3/uL (1.5-8.5); NEUTROPHILS % 24.1 % (36.0-66.0); PLATELET COUNT, AUTOMATED 113 10^3/uL (150-450); RED BLOOD COUNT 3.97 10^6/uL (4.30-6.10); WHITE BLOOD COUNT 4.6 10^3/uL (4.0-10.0)
[2020-06-03 09:33] LABS: BLOOD UREA NITROGEN 9 MG/DL (7-18); CALCIUM LEVEL 7.6 MG/DL (8.5-10.1); CARBON DIOXIDE LEVEL 28 MEQ/L (21-32); CHLORIDE LEVEL 104 MEQ/L (98-107); CHOLESTEROL LEVEL 197 MG/DL (<200); CHOLESTEROL RISK RATIO 2.5 (<5); CREATININE FOR GFR 0.93 MG/DL (0.70-1.30); ETHYL ALCOHOL (ETHANOL) 0.457 % (0.000-0.010); GLOMERULAR FILTRATION RATE > 60.0 (>56); GLUCOSE, FASTING 81 MG/DL (70-100); HDL CHOLESTEROL 79 MG/DL (>40); LDL CHOLESTEROL 75 MG/DL (<100); NON-HDL-C 118 MG/DL; SODIUM LEVEL 142 MEQ/L (136-145); TRIGLYCERIDES LEVEL 215 MG/DL (<150); VALPROIC ACID (DEPAKOTE) 76.2 UG/ML (50.0-100.0)
== END 2020-05-03 08:14 | disposition home or self-care (01) | DRG 897 ==
LOC: M ED 16:04 → M MSPAV 16:05 → OBSVTOIN 04-30 10:30 → M PCU 05-01 03:32 → M MSPAV 05-01 16:04 → UNDOADMOB 05-01 16:04
PROVIDERS: ADMIT General Practice; ATTEND General Practice
DX: F10.220 Alcohol dependence with intoxication, uncomplicated (principal); D86.9 Sarcoidosis, unspecified; I10 Essential (primary) hypertension

== ENCOUNTER → 2020-09-08 | Outpatient (REF) ==
[2020-09-08 10:16] LABS: HEMOGLOBIN 12.4 g/dl (13.5-17.5); MEAN CORPUSCULAR HEMOGLOBIN 24.9 pg (27.0-33.0); MEAN CORPUSCULAR HGB CONC 30.2 g/dl (32.0-36.5); MEAN CORPUSCULAR VOLUME 82.5 fl (80.0-96.0); PLATELET COUNT, AUTOMATED 186 10^3/uL (150-450); RED BLOOD COUNT 4.97 10^6/uL (4.30-6.10); WHITE BLOOD COUNT 7.1 10^3/uL (4.0-10.0)
[2020-09-08 10:44] LABS: BLOOD UREA NITROGEN 12 MG/DL (7-18); CALCIUM LEVEL 9.3 MG/DL (8.5-10.1); CARBON DIOXIDE LEVEL 30 MEQ/L (21-32); CHLORIDE LEVEL 104 MEQ/L (98-107); CREATININE FOR GFR 0.64 MG/DL (0.70-1.30); GLOMERULAR FILTRATION RATE > 60.0 (>56); GLUCOSE, FASTING 112 MG/DL (70-100); POTASSIUM SERUM 3.5 MEQ/L (3.5-5.1); SODIUM LEVEL 140 MEQ/L (136-145)
== END ==
PROVIDERS: ATTEND Internal Medicine
DX: R56.9 Unspecified convulsions (principal)

== ENCOUNTER → 2020-09-11 | Outpatient (REF) ==
[2020-09-11 09:11] LABS: HEMATOCRIT 42.5 % (42.0-52.0); MEAN CORPUSCULAR HEMOGLOBIN 25.2 pg (27.0-33.0); MEAN CORPUSCULAR HGB CONC 30.6 g/dl (32.0-36.5); MEAN CORPUSCULAR VOLUME 82.5 fl (80.0-96.0); PLATELET COUNT, AUTOMATED 164 10^3/uL (150-450); RED BLOOD COUNT 5.15 10^6/uL (4.30-6.10); WHITE BLOOD COUNT 7.7 10^3/uL (4.0-10.0)
[2020-09-11 09:35] LABS: BLOOD UREA NITROGEN 12 MG/DL (7-18); CALCIUM LEVEL 9.6 MG/DL (8.5-10.1); CARBON DIOXIDE LEVEL 29 MEQ/L (21-32); CHLORIDE LEVEL 105 MEQ/L (98-107); CREATININE FOR GFR 0.63 MG/DL (0.70-1.30); GLOMERULAR FILTRATION RATE > 60.0 (>56); GLUCOSE, FASTING 109 MG/DL (70-100); POTASSIUM SERUM 3.8 MEQ/L (3.5-5.1); SODIUM LEVEL 141 MEQ/L (136-145)
== END ==
PROVIDERS: ATTEND Physician Assistant
DX: I10 Essential (primary) hypertension (principal)

== ENCOUNTER → 2020-09-14 | Outpatient (REF) | PROVIDERS: ATTEND Internal Medicine | DX: Z20.828 Contact with and (suspected) exposure to other viral communicable diseases (principal) ==

== ENCOUNTER → 2020-09-15 | Outpatient (REF) ==
[2020-09-15 10:12] LABS: HEMATOCRIT 44.8 % (42.0-52.0); HEMOGLOBIN 13.4 g/dl (13.5-17.5); MEAN CORPUSCULAR HEMOGLOBIN 24.7 pg (27.0-33.0); MEAN CORPUSCULAR HGB CONC 29.9 g/dl (32.0-36.5); MEAN CORPUSCULAR VOLUME 82.5 fl (80.0-96.0); PLATELET COUNT, AUTOMATED 168 10^3/uL (150-450); RED BLOOD COUNT 5.43 10^6/uL (4.30-6.10); WHITE BLOOD COUNT 6.6 10^3/uL (4.0-10.0)
[2020-09-15 10:39] LABS: BLOOD UREA NITROGEN 12 MG/DL (7-18); CALCIUM LEVEL 9.8 MG/DL (8.5-10.1); CARBON DIOXIDE LEVEL 29 MEQ/L (21-32); CHLORIDE LEVEL 104 MEQ/L (98-107); CREATININE FOR GFR 0.61 MG/DL (0.70-1.30); GLOMERULAR FILTRATION RATE > 60.0 (>56); GLUCOSE, FASTING 97 MG/DL (70-100); POTASSIUM SERUM 3.7 MEQ/L (3.5-5.1); SODIUM LEVEL 139 MEQ/L (136-145)
== END ==
PROVIDERS: ATTEND Internal Medicine
DX: R56.9 Unspecified convulsions (principal)

== ENCOUNTER → 2020-09-18 | Outpatient (REF) ==
[2020-09-18 14:15] LABS: INFLUENZA A AMPLIFICATION NEGATIVE (NEGATIVE); INFLUENZA B AMPLIFICATION NEGATIVE (NEGATIVE)
== END ==
PROVIDERS: ATTEND Internal Medicine
DX: Z20.828 Contact with and (suspected) exposure to other viral communicable diseases (principal)

== ENCOUNTER → 2020-09-18 | Outpatient (REF) ==
[2020-09-18 09:14] LABS: HEMATOCRIT 43.1 % (42.0-52.0); HEMOGLOBIN 13.6 g/dl (13.5-17.5); MEAN CORPUSCULAR HGB CONC 31.6 g/dl (32.0-36.5); MEAN CORPUSCULAR VOLUME 82.3 fl (80.0-96.0); PLATELET COUNT, AUTOMATED 171 10^3/uL (150-450); RED BLOOD COUNT 5.24 10^6/uL (4.30-6.10); WHITE BLOOD COUNT 7.6 10^3/uL (4.0-10.0)
[2020-09-18 09:34] LABS: BLOOD UREA NITROGEN 12 MG/DL (7-18); CALCIUM LEVEL 9.5 MG/DL (8.5-10.1); CARBON DIOXIDE LEVEL 27 MEQ/L (21-32); CHLORIDE LEVEL 100 MEQ/L (98-107); CREATININE FOR GFR 0.64 MG/DL (0.70-1.30); GLOMERULAR FILTRATION RATE > 60.0 (>56); GLUCOSE, FASTING 109 MG/DL (70-100); SODIUM LEVEL 136 MEQ/L (136-145)
== END ==
PROVIDERS: ATTEND Internal Medicine
DX: R56.9 Unspecified convulsions (principal)

== ENCOUNTER → 2020-09-24 | Outpatient (REF) ==
[~2020-09-24] MED LIST changes: +ACET1TAB55 GT; -ACET1TAB55 PO; -AMIT25TA PO; +AMIT25TA17 PO; +ASCO500T GT; +ASPI1CHW3 GT; +BISA10SU27 PR; +CEFT1INJ5 IM; +D31000TA2 GT; +ENEMENE PR; +EZET10TA21 GT; -EZET10TA21 PO; +FOLI1TAB11 GT; +GABA-282 PO; -GABA-843 PO; +GNPSOL OU; +JEVILIQ7 GT; +METO25TA4 GT; +MILKSUS3 GT; +MODA200T15 GT; +OXCA300S3 GT; +PROTPAK GT; +ROPI1TAB3 GT; +SENN15UDC GT; +THERTAB52 GT; +THIA100T7 GT; +TRIL1TAB PO; +ZINC100T3 GT; +[UNRECOGNIZED DRUG - CODE] OU
== END ==
PROVIDERS: ATTEND Internal Medicine
DX: Z20.828 Contact with and (suspected) exposure to other viral communicable diseases (principal)

== ENCOUNTER 2020-10-09 18:11 | Emergency (ER) | payer MEDICARE, OTHER ==
[~2020-10-09] VITALS: Ht 167.6 cm; Wt 59.5 kg
[~2020-10-09 18:11] MED LIST changes: -ACET1TAB55 GT; +ACET1TAB55 PO; +AMIT25TA PO; -AMIT25TA17 PO; -ASCO500T GT; -ASPI1CHW3 GT; -BISA10SU27 PR; -CEFT1INJ5 IM; -D31000TA2 GT; -ENEMENE PR; -EZET10TA21 GT; +EZET10TA21 PO; -FOLI1TAB11 GT; -GABA-282 PO; +GABA-843 PO; -GNPSOL OU; -JEVILIQ7 GT; -METO25TA4 GT; -MILKSUS3 GT; -MODA200T15 GT; -OXCA300S3 GT; -PROTPAK GT; -ROPI1TAB3 GT; -SENN15UDC GT; -THERTAB52 GT; -THIA100T7 GT; -TRIL1TAB PO; -ZINC100T3 GT; -[UNRECOGNIZED DRUG - CODE] OU
[2020-10-09] MEDS ORDERED: METO25TA4 PO (20:25)
[2020-10-09] MEDS ORDERED: ASCO500T PO (20:25)
[2020-10-09] MEDS ORDERED: D31000TA2 PO (20:25)
[2020-10-09] MEDS ORDERED: GNPSOL OU (20:25)
[2020-10-09] MEDS ORDERED: ASPI1CHW3 PO (20:25)
[2020-10-09] MEDS ORDERED: THIA100T7 PO (20:25)
[2020-10-09] MEDS ORDERED: PROTPAK PO (20:25)
[2020-10-09] MEDS ORDERED: THERTAB52 PO (20:25)
[2020-10-09] MEDS ORDERED: MODA200T15 PO (20:25)
[2020-10-09] MEDS ORDERED: TRIL1TAB PO (20:30)
[2020-10-09] MEDS ORDERED: MILKSUS3 PO (20:32)
[2020-10-09] MEDS ORDERED: BISA10SU27 PR (20:32)
[2020-10-09] MEDS ORDERED: ZINC100T3 PO (20:34)
[2020-10-09] MEDS ORDERED: OXCA300S3 PO (20:38)
[2020-10-09 22:00] VITALS: BP 109/75
== END 2020-10-09 22:51 | disposition home or self-care (01) ==
LOC: M ED 18:11 → EDBD 18:11 → M ED 22:51
DX: K94.23 Gastrostomy malfunction (principal); I11.9 Hypertensive heart disease without heart failure; R56.9 Unspecified convulsions; Z87.820 Personal history of traumatic brain injury; Z79.899 Other long term (current) drug therapy; Z79.82 Long term (current) use of aspirin

== ENCOUNTER → 2020-10-16 | Outpatient (REF) ==
[~2020-10-16] MED LIST changes: +ACET1TAB55 GT; -ACET1TAB55 PO; -AMIT25TA PO; +AMIT25TA17 PO; +ASCO500T GT; +ASPI1CHW3 GT; +BISA10SU27 PR; +CEFT1INJ5 IM; +D31000TA2 GT; +ENEMENE PR; +EZET10TA21 GT; -EZET10TA21 PO; +FOLI1TAB11 GT; +GABA-282 PO; -GABA-843 PO; +GNPSOL OU; +JEVILIQ7 GT; +METO25TA4 GT; +MILKSUS3 GT; +MODA200T15 GT; +OXCA300S3 GT; +PROTPAK GT; +ROPI1TAB3 GT; +SENN15UDC GT; +THERTAB52 GT; +THIA100T7 GT; +TRIL1TAB PO; +ZINC100T3 GT; +[UNRECOGNIZED DRUG - CODE] OU
[2020-10-16 11:29] LABS: HEMATOCRIT 47.8 % (42.0-52.0); HEMOGLOBIN 14.2 g/dl (13.5-17.5); MEAN CORPUSCULAR HEMOGLOBIN 24.4 pg (27.0-33.0); MEAN CORPUSCULAR HGB CONC 29.7 g/dl (32.0-36.5); MEAN CORPUSCULAR VOLUME 82.1 fl (80.0-96.0); RED BLOOD COUNT 5.82 10^6/uL (4.30-6.10); WHITE BLOOD COUNT 7.7 10^3/uL (4.0-10.0)
[2020-10-16 11:36] LABS: AMORPHOUS SEDIMENT SMALL (NEGATIVE); APPEARANCE, URINE CLOUDY (CLEAR); BACTERIA, URINE AUTO NEGATIVE (NEGATIVE); BILIRUBIN, URINE AUTO NEGATIVE (NEGATIVE); BLOOD, URINE BLOOD NEGATIVE (NEGATIVE); COLOR, URINE YELLOW (YELLOW); GLUCOSE, URINE (UA) AUTO NEGATIVE (NEGATIVE); KETONE, URINE AUTO NEGATIVE (NEGATIVE); LEUKOCYTE ESTERASE, URINE AUTO NEGATIVE (NEGATIVE); MUCUS, URINE MODERATE (NEGATIVE); NITRITE, URINE AUTO NEGATIVE (NEGATIVE); PROTEIN, URINE AUTO NEGATIVE (NEGATIVE); RBC, URINE AUTO 2 /HPF (0-3); SPECIFIC GRAVITY URINE AUTO 1.015 (1.002-1.035); SQUAMOUS EPITHELIAL CELL UR AU 0 /HPF (0-6); UROBILINOGEN, URINE AUTO 0.2 mg/dL (0.0-2.0); WBC, URINE AUTO 0 /HPF (0-3)
[2020-10-16 11:49] LABS: PLATELET COUNT, AUTOMATED 150 10^3/uL (150-450)
[2020-10-16 12:01] LABS: ALBUMIN 3.1 GM/DL (3.2-5.2); ALT/SGPT 91 U/L (12-78); BILIRUBIN,DIRECT 0.1 MG/DL (0.0-0.2); BILIRUBIN,TOTAL 0.3 MG/DL (0.2-1.0); BLOOD UREA NITROGEN 20 MG/DL (7-18); CALCIUM LEVEL 9.9 MG/DL (8.5-10.1); CARBON DIOXIDE LEVEL 33 MEQ/L (21-32); CHLORIDE LEVEL 106 MEQ/L (98-107); CREATININE FOR GFR 0.83 MG/DL (0.70-1.30); FREE T4 0.62 NG/DL (0.76-1.46); GLOMERULAR FILTRATION RATE > 60.0 (>56); GLUCOSE, FASTING 88 MG/DL (70-100); POTASSIUM SERUM 3.7 MEQ/L (3.5-5.1); SODIUM LEVEL 143 MEQ/L (136-145); TOTAL PROTEIN 7.8 GM/DL (6.4-8.2)
--- NOTE | 2020-10-16 15:16 | REPPI ---
INDICATION: INCREASE IN TEMP. ROOM 146-2 COMPARISON: 04/02/2020 TECHNIQUE: Portable AP view of the chest FINDINGS: The cardiac silhouette is grossly normal. Bilateral pleuroparenchymal changes are similar to prior examination including ill-defined opacity involving the left upper lung zone with nodular calcifications as well as linear scarring in the right midlung zone and bibasilar pleuroparenchymal changes obscuring the diaphragmatic silhouettes and costophrenic angles. Subtle superimposed acute process cannot be excluded. No pneumothorax. Presumed ventriculoperitoneal shunt courses along the left neck chest and upper abdomen. IMPRESSION: Chronic changes similar to prior examination. Superimposed acute process cannot be excluded. <Electronically signed by Jason Hahn > 10/16/20 [id number]
== END ==
PROVIDERS: ATTEND Physician Assistant
DX: R56.9 Unspecified convulsions (principal)

== ENCOUNTER → 2020-10-17 | Outpatient (REF) ==
[2020-10-17 09:39] LABS: HEMATOCRIT 47.3 % (42.0-52.0); HEMOGLOBIN 14.5 g/dl (13.5-17.5); MEAN CORPUSCULAR HEMOGLOBIN 25.3 pg (27.0-33.0); MEAN CORPUSCULAR HGB CONC 30.7 g/dl (32.0-36.5); MEAN CORPUSCULAR VOLUME 82.7 fl (80.0-96.0); PLATELET COUNT, AUTOMATED 145 10^3/uL (150-450); RED BLOOD COUNT 5.72 10^6/uL (4.30-6.10); WHITE BLOOD COUNT 7.3 10^3/uL (4.0-10.0)
[2020-10-17 10:05] LABS: BLOOD UREA NITROGEN 20 MG/DL (7-18); CARBON DIOXIDE LEVEL 32 MEQ/L (21-32); CHLORIDE LEVEL 109 MEQ/L (98-107); CREATININE FOR GFR 0.78 MG/DL (0.70-1.30); GLOMERULAR FILTRATION RATE > 60.0 (>56); GLUCOSE, FASTING 149 MG/DL (70-100); POTASSIUM SERUM 3.6 MEQ/L (3.5-5.1); SODIUM LEVEL 146 MEQ/L (136-145)
[2020-10-17 11:30] LABS: INFLUENZA A AMPLIFICATION NEGATIVE (NEGATIVE); INFLUENZA B AMPLIFICATION NEGATIVE (NEGATIVE)
== END ==
PROVIDERS: ATTEND Physician Assistant
DX: R50.9 Fever, unspecified (principal)

== ENCOUNTER → 2020-10-20 | Outpatient (REF) | payer MEDICARE, OTHER ==
[2020-10-20 12:06] LABS: HEMATOCRIT 50.5 % (42.0-52.0); HEMOGLOBIN 14.9 g/dl (13.5-17.5); MEAN CORPUSCULAR HEMOGLOBIN 24.5 pg (27.0-33.0); MEAN CORPUSCULAR HGB CONC 29.5 g/dl (32.0-36.5); MEAN CORPUSCULAR VOLUME 83.1 fl (80.0-96.0); PLATELET COUNT, AUTOMATED 155 10^3/uL (150-450); RED BLOOD COUNT 6.08 10^6/uL (4.30-6.10); WHITE BLOOD COUNT 9.6 10^3/uL (4.0-10.0)
[2020-10-20 12:34] LABS: BLOOD UREA NITROGEN 23 MG/DL (7-18); CALCIUM LEVEL 10.6 MG/DL (8.5-10.1); CARBON DIOXIDE LEVEL 31 MEQ/L (21-32); CHLORIDE LEVEL 112 MEQ/L (98-107); CREATININE FOR GFR 0.88 MG/DL (0.70-1.30); GLOMERULAR FILTRATION RATE > 60.0 (>56); GLUCOSE, FASTING 87 MG/DL (70-100); SODIUM LEVEL 148 MEQ/L (136-145)
== END ==
PROVIDERS: ATTEND Internal Medicine
DX: J18.9 Pneumonia, unspecified organism (principal)

== ENCOUNTER 2020-10-21 10:04 | Emergency (ER) | payer MEDICARE, OTHER ==
[~2020-10-21 10:04] MED LIST changes: -CEFT1INJ5 IM; -ENEMENE PR; -FOLI1TAB11 GT; -JEVILIQ7 GT; -ROPI1TAB3 GT; -SENN15UDC GT; -[UNRECOGNIZED DRUG - CODE] OU
[2020-10-21] MEDS ORDERED: LIDOCAINE 2% 5ML JELLY UROJET TOP ONE (10:45)
[2020-10-21] MEDS ORDERED: ACETAMINOPHEN 325 MG/10.15 ML UDC GT ONE (10:45)
[2020-10-21] MEDS ORDERED: NS 1,000 ML IV ONE (10:45)
[2020-10-21 10:51] LABS: VENOUS BASE EXCESS 6.3 (-2.0-2.0); VENOUS HCO3 31.6 MEQ/L (23.0-27.0); VENOUS O2 SATURATION 97.9 % (60.0-80.0); VENOUS PARTIAL PRESSURE CO2 47.6 mmHg (38.0-50.0); VENOUS PARTIAL PRESSURE O2 93.7 mmHg (30.0-50.0); VENOUS STANDARD HCO3 30.2 MEQ/L; VENOUS TOTAL CO2 33.1 MEQ/L (24.0-28.0)
--- NOTE | 2020-10-21 10:54 | REP ---
INDICATION: DYSPNEA/COUGH COMPARISON: 10/16/2020, 01/20/2020 TECHNIQUE: Portable AP view of the chest FINDINGS: Extensive bilateral pleuroparenchymal changes are essentially unchanged as compared to prior examinations. No obvious acute consolidation. IMPRESSION: Extensive chronic pleuroparenchymal changes. No obvious acute process. If the patient remains symptomatic consider chest CT for further investigation. <Electronically signed by Jason Hahn > 10/21/20 [id number]
[2020-10-21 10:58] LABS: BASO % 0.4 % (0.0-1.0); EOS # 0.2 10^3/uL (0.0-0.5); EOS % 1.8 % (0.0-3.0); HEMATOCRIT 50.1 % (42.0-52.0); HEMOGLOBIN 14.9 g/dl (13.5-17.5); LYMPH # 3.4 10^3/uL (1.5-5.0); LYMPH % 33.1 % (24.0-44.0); MEAN CORPUSCULAR HEMOGLOBIN 25.1 pg (27.0-33.0); MEAN CORPUSCULAR HGB CONC 29.7 g/dl (32.0-36.5); MEAN CORPUSCULAR VOLUME 84.3 fl (80.0-96.0); MONO # 1.2 10^3/uL (0.0-0.8); MONO % 11.4 % (0.0-5.0); NEUTROPHILS # 5.4 10^3/uL (1.5-8.5); NEUTROPHILS % 52.9 % (36.0-66.0); PLATELET COUNT, AUTOMATED 148 10^3/uL (150-450); RED BLOOD COUNT 5.94 10^6/uL (4.30-6.10); WHITE BLOOD COUNT 10.1 10^3/uL (4.0-10.0)
[2020-10-21 11:09] LABS: INR 1.02; PROTHROMBIN TIME 13.7 SECONDS (12.5-14.3)
[2020-10-21] MEDS ORDERED: SENN15UDC GT (11:13)
[2020-10-21] MEDS ORDERED: FOLI1TAB11 GT (11:13)
[2020-10-21] MEDS ORDERED: ROPI1TAB3 GT (11:13)
[2020-10-21] MEDS ORDERED: CEFT1INJ5 IM (11:13)
[2020-10-21] MEDS ORDERED: ENEMENE PR (11:14)
[2020-10-21] MEDS ORDERED: JEVILIQ7 GT (11:14)
[2020-10-21] MEDS ORDERED: [UNRECOGNIZED DRUG - CODE] OU (11:14)
[2020-10-21 11:36] LABS: ALT/SGPT 154 U/L (12-78); BILIRUBIN,DIRECT < 0.1 MG/DL (0.0-0.2); BILIRUBIN,TOTAL 0.2 MG/DL (0.2-1.0); BLOOD UREA NITROGEN 23 MG/DL (7-18); CALCIUM LEVEL 10.2 MG/DL (8.5-10.1); CARBON DIOXIDE LEVEL 32 MEQ/L (21-32); CHLORIDE LEVEL 112 MEQ/L (98-107); CK-MB VALUE MASS 1.2 NG/ML (<3.6); CPK CREATINE PHOSPHOKINASE 1327 U/L (39-308); CREATININE FOR GFR 0.84 MG/DL (0.70-1.30); GLOMERULAR FILTRATION RATE > 60.0 (>56); GLUCOSE, FASTING 104 MG/DL (70-100); MB/CK RELATIVE INDEX 0.09 (< OR =4); NT-PRO BNP 332 PG/ML (<125); POTASSIUM SERUM 4.1 MEQ/L (3.5-5.1); SODIUM LEVEL 150 MEQ/L (136-145); THYROXINE (T4) 5.7 UG/DL (4.5-12.0); TOTAL PROTEIN 7.6 GM/DL (6.4-8.2); TROPONIN I < 0.02 NG/ML (< 0.10)
--- NOTE | 2020-10-21 12:49 | REP ---
INDICATION: altered mental status. COMPARISON: Comparison is made with multiple prior head CT studies the most recent which is from April 28, 2020 and the most remote August 27, 2019.. TECHNIQUE: Helical scanning is acquired. 5 mm axial images were reformatted. Coronal MPR images were generated. FINDINGS: Digital preliminary potato grader view and bone window settings demonstrate that the patient is status post large right fronto temporoparietal craniotomy with cranial prosthesis. A ventriculostomy tube is noted on the left. These changes are new when compared with the April 28, 2020 study. There is old encephalomalacia in the right inferior frontal lobe and the right inferior temporal lobe, there are mild old encephalomalacia changes in the left inferior frontal lobe as well. These changes may relate to remote prior trauma. There is a small new area of encephalomalacia in the right parietal lobe adjacent to the craniotomy site. This is an interval change from the April 28, 2020 study. No skull fracture or scalp hematoma is seen. There is some minimal dural thickening at the anterior and inferior aspect of the craniotomy site. On the left, there is a small subacute subdural hematoma. This is seen along the left frontal lobe. It measures up to 5 mm in thickness. No acute or hyperdense hematoma is seen. No parenchymal hemorrhage is noted. There is moderate ventricular enlargement of the lateral and 3rd ventricles. Ventriculostomy tube is seen in place. The ventricles are somewhat larger than on the preoperative CT study. There is some periventricular low-density surrounding the right lateral ventricle. IMPRESSION: Interval large craniotomy and cranial prosthesis in place on the right. Left frontal ventriculoperitoneal shunt catheter. Hydrocephalus, moderate in degree involving the lateral and 3rd ventricles with ventriculostomy tube in good position. Some periventricular low-density which may reflect transependymal CSF resorption. There is a 5 mm thick subacute left frontal subdural hematoma. Mild postoperative dural thickening is noted on the right. Areas of posttraumatic encephalomalacia are again seen in the inferior frontal lobes bilaterally, the inferior temporal lobe on the right, and in a interval new area of the right parietal lobe adjacent to the craniotomy site.. <Electronically signed by Arnol Jansen > 10/21/20 [id number]
--- NOTE | 2020-10-21 13:03 | REP ---
INDICATION: elevated LFTs. COMPARISON: 03/18/2020. TECHNIQUE: Real-time sonographic evaluation of right upper quadrant performed. FINDINGS: Gallbladder demonstrates no definite calculi sonographically, although on today's CT of the chest there may be a few tiny gallstones in the neck of the gallbladder. There is no gallbladder wall thickening.. There is no definite biliary dilatation. The common bile duct could not be visualized due to overlying bowel gas. The liver demonstrates homogeneous echotexture with no gross mass. The pancreas demonstrates homogeneous echotexture with no gross mass. The right kidney demonstrates no hydronephrosis, with a normal size of 10.9 cm in length. There is a very small amount of free fluid adjacent to the liver. IMPRESSION: No definite stones in the gallbladder sonographically, but on today's CT of the chest there appear to be a few tiny stones in the neck of the gallbladder. No gallbladder wall thickening. No definite evidence of biliary dilatation although the common bile duct could not be visualized due to overlying bowel gas. Very small amount of free fluid adjacent to the liver. <Electronically signed by Chaarn Cedeño > 10/21/20 1300
--- NOTE | 2020-10-21 13:05 | REP ---
INDICATION: altered mental status. COMPARISON: Comparison chest CT study images are from December 09, 2014 comparison chest x-rays are from today as well as April 07, 2016.. TECHNIQUE: Helical scanning is acquired. 3 mm axial images are generated. Coronal and sagittal MPR and coronal MIP images are generated. FINDINGS: The lungs are generally somewhat under inflated. There are extensive areas of all you mellitus and scarring in the upper lobes bilaterally with few air bronchograms. There are extensive granulomatous lymph node calcifications in the mediastinum and hilar regions bilaterally. No pleural effusion is seen. The large areas of bandlike fibrosis and consolidation and volume loss are similar, essentially unchanged when compared with the prior study from 2014. There is interstitial infiltrate visible in the left lower lobe laterally adjacent to the diaphragm which is a new finding compared to the 2015 CT. this may reflect an acute pneumonia. The other changes appear to be chronic. There is evidence of a ventriculoperitoneal shunt catheter coursing into the upper abdomen. A feeding gastrostomy tube is noted. There are intrarenal calculi in the upper pole the right kidney without observable hydronephrosis. There are areas of pleural calcification and thickening in the right base. No bony destructive lesion is seen. There is old posttraumatic deformity of the left clavicle. There are multiple old healed rib fractures on the left. IMPRESSION: Extensive chronic fibrotic changes with volume loss in the upper lobes bilaterally essentially unchanged. Chronic pleural thickening unchanged. Granulomatous calcifications noted extensively as before. There is an acute appearing infiltrate in the left lower lobe inferiorly and laterally suggesting acute pneumonia. Ventriculoperitoneal shunt catheter and feeding gastrostomy tube are noted. Intrarenal nephrolithiasis on the right. Multiple healed fractures on the left. <Electronically signed by Arnol Jansen > 10/21/20 [id number]
[2020-10-21] MEDS ORDERED: CEFTAROLINE FOSAMIL 600 MG in D5W MINI-BAG PLUS 50 ML IV ONE (13:30)
[2020-10-21] MEDS ORDERED: D5W 1,000 ML IV SCH (14:00)
[2020-10-21 16:30] VITALS: BP 121/84
--- NOTE | 2020-10-22 05:37 | ECGEPIP ---
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
== END 2020-10-21 16:32 | disposition short-term general hospital (02) ==
LOC: M ED 10:04 → EDBD 10:04 → M ED 16:32
DX: I62.00 Nontraumatic subdural hemorrhage, unspecified (principal); E87.0 Hyperosmolality and hypernatremia; J18.9 Pneumonia, unspecified organism; R00.0 Tachycardia, unspecified; Z98.2 Presence of cerebrospinal fluid drainage device; Z93.1 Gastrostomy status; I25.10 Atherosclerotic heart disease of native coronary artery without angina pectoris; I25.2 Old myocardial infarction; I11.9 Hypertensive heart disease without heart failure; E78.5 Hyperlipidemia, unspecified; Z87.820 Personal history of traumatic brain injury; R56.9 Unspecified convulsions; Z79.899 Other long term (current) drug therapy; Z79.82 Long term (current) use of aspirin
CPT/HCPCS: 51701; 70450; 71045; 71250; 76705; 80048; 80076; 81001; 82550; 82553; 82803; 83605; 83880; 84436; 84443; 84484; 85025; 85610; 87040; 87486; 87581; 87633; 87798; 93005; 93041; 94760; 96361; 96365; 96366; 99285; J0712

== ENCOUNTER → 2020-10-21 | Outpatient (REF) ==
[2020-10-21 10:56] LABS: BLOOD UREA NITROGEN 23 MG/DL (7-18); CALCIUM LEVEL 10.2 MG/DL (8.5-10.1); CARBON DIOXIDE LEVEL 32 MEQ/L (21-32); CHLORIDE LEVEL 112 MEQ/L (98-107); CREATININE FOR GFR 0.82 MG/DL (0.70-1.30); GLOMERULAR FILTRATION RATE > 60.0 (>56); GLUCOSE, FASTING 108 MG/DL (70-100); POTASSIUM SERUM 3.8 MEQ/L (3.5-5.1); SODIUM LEVEL 150 MEQ/L (136-145)
== END ==
PROVIDERS: ATTEND Internal Medicine
DX: J18.9 Pneumonia, unspecified organism (principal)

== ENCOUNTER → 2020-10-22 | Outpatient (REF) ==
[~2020-10-22] MED LIST changes: +CEFT1INJ5 IM; +ENEMENE PR; +FOLI1TAB11 GT; +JEVILIQ7 GT; +ROPI1TAB3 GT; +SENN15UDC GT; +[UNRECOGNIZED DRUG - CODE] OU
== END ==
PROVIDERS: ATTEND Internal Medicine
DX: Z20.822 Contact with and (suspected) exposure to COVID-19 (principal)

== ENCOUNTER → 2020-10-23 | Outpatient (REF) | PROVIDERS: ATTEND Internal Medicine | DX: E87.0 Hyperosmolality and hypernatremia (principal) ==

== ENCOUNTER → 2020-10-30 | Outpatient (REF) ==
[2020-10-30 16:13] LABS: HEMATOCRIT 44.5 % (42.0-52.0); HEMOGLOBIN 13.8 g/dl (13.5-17.5); MEAN CORPUSCULAR VOLUME 80.8 fl (80.0-96.0); PLATELET COUNT, AUTOMATED 229 10^3/uL (150-450); RED BLOOD COUNT 5.51 10^6/uL (4.30-6.10); WHITE BLOOD COUNT 8.7 10^3/uL (4.0-10.0)
[2020-10-30 16:40] LABS: BLOOD UREA NITROGEN 12 MG/DL (7-18); CALCIUM LEVEL 10.9 MG/DL (8.5-10.1); CARBON DIOXIDE LEVEL 29 MEQ/L (21-32); CHLORIDE LEVEL 97 MEQ/L (98-107); GLOMERULAR FILTRATION RATE > 60.0 (>56); GLUCOSE, FASTING 119 MG/DL (70-100); POTASSIUM SERUM 4.3 MEQ/L (3.5-5.1); SODIUM LEVEL 136 MEQ/L (136-145)
== END ==
PROVIDERS: ATTEND Physician Assistant
DX: E87.0 Hyperosmolality and hypernatremia (principal); Z87.820 Personal history of traumatic brain injury

== ENCOUNTER → 2020-11-03 | Outpatient (REF) | payer MEDICARE, OTHER ==
[2020-11-03 08:54] LABS: HEMATOCRIT 42.5 % (42.0-52.0); HEMOGLOBIN 13.1 g/dl (13.5-17.5); MEAN CORPUSCULAR HEMOGLOBIN 24.7 pg (27.0-33.0); MEAN CORPUSCULAR HGB CONC 30.8 g/dl (32.0-36.5); PLATELET COUNT, AUTOMATED 227 10^3/uL (150-450); RED BLOOD COUNT 5.31 10^6/uL (4.30-6.10); WHITE BLOOD COUNT 7.2 10^3/uL (4.0-10.0)
[2020-11-03 09:24] LABS: BLOOD UREA NITROGEN 7 MG/DL (7-18); CALCIUM LEVEL 10.2 MG/DL (8.5-10.1); CARBON DIOXIDE LEVEL 28 MEQ/L (21-32); CHLORIDE LEVEL 99 MEQ/L (98-107); CREATININE FOR GFR 0.59 MG/DL (0.70-1.30); GLOMERULAR FILTRATION RATE > 60.0 (>56); GLUCOSE, FASTING 107 MG/DL (70-100); POTASSIUM SERUM 3.5 MEQ/L (3.5-5.1); SODIUM LEVEL 136 MEQ/L (136-145)
== END ==
PROVIDERS: ATTEND Internal Medicine
DX: Z87.820 Personal history of traumatic brain injury (principal)

== ENCOUNTER → 2020-11-06 | Outpatient (CLI) | payer MEDICARE, OTHER ==
--- NOTE | 2020-11-06 11:33 | REPVR ---
PROCEDURE INFORMATION: Exam: CT Head Without Contrast Exam date and time: 11/06/2020 11:16 AM Age: 55 years old Clinical indication: Other: Acute subdural hematoma; Additional info: Acute subdural hematoma, PT on stretcher in CT area TECHNIQUE: Imaging protocol: Computed tomography of the head without contrast. Radiation optimization: All CT scans at this facility use at least one of these dose optimization techniques: automated exposure control; mA and/or kV adjustment per patient size (includes targeted exams where dose is matched to clinical indication); or iterative reconstruction. COMPARISON: CT Head without contrast 10/21/2020 12:26 PM FINDINGS: Tubes, catheters and devices: Left frontal approach ventriculostomy catheter terminates within the left frontal horn. Brain: There is a hypodense left convexity extra-axial collection measuring up to 7 mm in thickness. These appear slightly larger in the interval. There is no associated mass effect or midline shift. There is right parietal encephalomalacia. Cerebral ventricles: There is some interval decompression of the ventricular system. Bones/joints: There are right-sided cranioplasty changes. A thin extra-axial collection underlying the craniotomy flap measures up to 3 mm in maximum thickness. Paranasal sinuses: Visualized sinuses are unremarkable. No fluid levels. Mastoid air cells: Visualized mastoid air cells are well aerated. Soft tissues: Unremarkable. IMPRESSION: 1. Decreased hydrocephalus with indwelling ventriculostomy catheter. 2. Slight interval increase in small bilateral convexity extra-axial collections. Electronically signed by: Brianna Jerry On 11/06/2020 11:33:14 AM
== END ==
LOC: M RAD 10:54
PROVIDERS: ATTEND Neurological Surgery
DX: S06.5X0A Traumatic subdural hemorrhage without loss of consciousness, initial encounter (principal); X58.XXXA Exposure to other specified factors, initial encounter; Y92.89 Other specified places as the place of occurrence of the external cause; Y93.9 Activity, unspecified; Y99.9 Unspecified external cause status

== ENCOUNTER → 2020-11-11 | Outpatient (REF) ==
[2020-11-11 11:51] LABS: HEMOGLOBIN 13.7 g/dl (13.5-17.5); MEAN CORPUSCULAR HEMOGLOBIN 25.2 pg (27.0-33.0); MEAN CORPUSCULAR HGB CONC 31.1 g/dl (32.0-36.5); PLATELET COUNT, AUTOMATED 170 10^3/uL (150-450); RED BLOOD COUNT 5.43 10^6/uL (4.30-6.10); WHITE BLOOD COUNT 8.5 10^3/uL (4.0-10.0)
[2020-11-11 12:19] LABS: BLOOD UREA NITROGEN 7 MG/DL (7-18); CALCIUM LEVEL 10.1 MG/DL (8.5-10.1); CARBON DIOXIDE LEVEL 27 MEQ/L (21-32); CHLORIDE LEVEL 99 MEQ/L (98-107); CREATININE FOR GFR 0.59 MG/DL (0.70-1.30); GLOMERULAR FILTRATION RATE > 60.0 (>56); GLUCOSE, FASTING 88 MG/DL (70-100); POTASSIUM SERUM 4.5 MEQ/L (3.5-5.1); SODIUM LEVEL 136 MEQ/L (136-145)
== END ==
PROVIDERS: ATTEND Internal Medicine
DX: Z87.820 Personal history of traumatic brain injury (principal)

== ENCOUNTER → 2020-11-19 | Outpatient (CLI) | payer MEDICARE, OTHER ==
--- NOTE | 2020-11-19 16:10 | REP ---
INDICATION: DYSPHAGIA, OROPHARYNGEAL PHASE/ PT IN CT WAITING AREA. COMPARISON: None. TECHNIQUE: The procedure was performed by DEIDRA Winters, under the direct supervision of Dr. Jansen. The procedure was performed with Claudia Davidson from speech pathology present. 5 ml aliquots of thin, pudding, honey, nectar, and applesauce consistency barium was administered. FINDINGS: Flash penetration was visualized with honey thick consistency barium. The detailed report of this examination will be provided by speech pathology. IMPRESSION: Flash penetration was visualized with honey thick consistency barium, a complete report will be provided by speech pathology. 4.4 minutes of fluoroscopy time was utilized for this procedure. Some fluoroscopic images are performed with last image hold technology. These images require no additional radiation <Electronically signed by Clemencia Spears > 11/19/20 1505 <Electronically signed by Arnol Jansen > 11/19/20 [id number]
== END ==
LOC: M ST 13:37
PROVIDERS: ATTEND Internal Medicine
DX: R13.12 Dysphagia, oropharyngeal phase (principal)

== ENCOUNTER → 2020-12-09 | Outpatient (REF) | PROVIDERS: ATTEND Physician Assistant | DX: Z87.820 Personal history of traumatic brain injury (principal) ==

== ENCOUNTER → 2020-12-10 | Outpatient (REF) ==
[2020-12-10 12:19] LABS: HEMATOCRIT 42.8 % (42.0-52.0); HEMOGLOBIN 13.5 g/dl (13.5-17.5); MEAN CORPUSCULAR HGB CONC 31.5 g/dl (32.0-36.5); MEAN CORPUSCULAR VOLUME 82.3 fl (80.0-96.0); PLATELET COUNT, AUTOMATED 197 10^3/uL (150-450); WHITE BLOOD COUNT 7.4 10^3/uL (4.0-10.0)
[2020-12-10 12:43] LABS: BLOOD UREA NITROGEN 11 MG/DL (7-18); CARBON DIOXIDE LEVEL 29 MEQ/L (21-32); CHLORIDE LEVEL 101 MEQ/L (98-107); CREATININE FOR GFR 0.58 MG/DL (0.70-1.30); GLOMERULAR FILTRATION RATE > 60.0 (>56); GLUCOSE, FASTING 95 MG/DL (70-100); POTASSIUM SERUM 4.1 MEQ/L (3.5-5.1); SODIUM LEVEL 137 MEQ/L (136-145)
== END ==
PROVIDERS: ATTEND Physician Assistant
DX: Z87.820 Personal history of traumatic brain injury (principal)

== ENCOUNTER 2020-12-21 10:59 | Emergency (ER) | payer MEDICARE, OTHER ==
[2020-12-21] MEDS ORDERED: LORazepam 2 MG/ML VIAL IV STA (11:22)
[2020-12-21 11:59] LABS: BASO # 0.1 10^3/uL (0.0-0.2); BASO % 0.5 % (0.0-1.0); EOS # 0.1 10^3/uL (0.0-0.5); EOS % 0.6 % (0.0-3.0); HEMATOCRIT 47.7 % (42.0-52.0); HEMOGLOBIN 14.9 g/dl (13.5-17.5); LYMPH # 2.7 10^3/uL (1.5-5.0); MEAN CORPUSCULAR HEMOGLOBIN 26.3 pg (27.0-33.0); MEAN CORPUSCULAR HGB CONC 31.2 g/dl (32.0-36.5); MEAN CORPUSCULAR VOLUME 84.1 fl (80.0-96.0); NEUTROPHILS # 6.2 10^3/uL (1.5-8.5); NEUTROPHILS % 61.5 % (36.0-66.0); PLATELET COUNT, AUTOMATED 213 10^3/uL (150-450); RED BLOOD COUNT 5.67 10^6/uL (4.30-6.10); WHITE BLOOD COUNT 10.1 10^3/uL (4.0-10.0)
--- NOTE | 2020-12-21 12:08 | REPVR ---
PROCEDURE INFORMATION: Exam: CT Head Without Contrast Exam date and time: 12/21/2020 11:47 AM Age: 55 years old Clinical indication: Injury or trauma; Fall; Blunt trauma (contusions or hematomas); Prior surgery; Surgery date: 6+ months; Additional info: Fall/head injury TECHNIQUE: Imaging protocol: Computed tomography of the head without contrast. Radiation optimization: All CT scans at this facility use at least one of these dose optimization techniques: automated exposure control; mA and/or kV adjustment per patient size (includes targeted exams where dose is matched to clinical indication); or iterative reconstruction. COMPARISON: CT Head without contrast 11/06/2020 11:10 AM FINDINGS: Tubes, catheters and devices: Left frontal ventriculostomy terminates in the left frontal horn. Brain: Stable bifrontal and right posterior parietal encephalomalacia. Mild prominence of the cortical sulci. 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 An additional 6.5 mm high attenuation left subdural hematoma tracks along the left tentorium. Minimal midline shift to the right.. Cerebral ventricles: Normal caliber of the ventricles, which have decreased in size when compared to the previous study. Bones/joints: Large right frontotemporoparietal craniectomy. Left frontal kaleigh hole. Paranasal sinuses: No sinus fluid. Mastoid air cells: No mastoid effusion. Soft tissues: Unremarkable soft tissues. IMPRESSION: 1. 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 2. Additional 6.5 mm high attenuation left subdural hematoma tracks along the left tentorium. 3. Minimal midline shift to the right.. 4. Additional findings as described above. The aforementioned findings initiated a critical results communication pathway. An addendum will be issued at the time of clincian notification. Electronically signed by: Jey Hanson On 12/21/2020 12:08:50 PM
--- NOTE | 2020-12-21 12:13 | REPVR ---
PROCEDURE INFORMATION: Exam: CT Cervical Spine Without Contrast Exam date and time: 12/21/2020 11:47 AM Age: 55 years old Clinical indication: Injury or trauma; Fall; Blunt trauma; Prior surgery; Surgery date: 6+ months; Additional info: Fall/head injury TECHNIQUE: Imaging protocol: Computed tomography images of the cervical spine without contrast. Radiation optimization: All CT scans at this facility use at least one of these dose optimization techniques: automated exposure control; mA and/or kV adjustment per patient size (includes targeted exams where dose is matched to clinical indication); or iterative reconstruction. COMPARISON: No relevant prior studies available. FINDINGS: Tubes, catheters and devices: Incompletely visualized left REFRIGERATOR CABINETMAKER catheter. 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 No acute bony injury or malalignment in the visualized cervical spine. Reversal of normal cervical lordosis. Multilevel degenerative change. Discs/Spinal canal/Neural foramina: Multilevel degenerative change. Lungs: Right apical pleural and parenchymal scarring. Poorly defined air containing cavity in the left apex, along with dystrophic calcification. Other findings: Incomplete distension of the left fossa Rosenmuller. IMPRESSION: 1. No acute bony injury or malalignment in the visualized cervical spine. 2. Additional findings as described above. Electronically signed by: Jey Hanson On 12/21/2020 12:13:34 PM
[2020-12-21] MEDS ORDERED: ASPE16CR TOP (12:34)
[2020-12-21] MEDS ORDERED: PRED5TA GT (12:34)
[2020-12-21] MEDS ORDERED: AMIT25TA17 PO (12:34)
[2020-12-21] MEDS ORDERED: ACET-683 GT (12:34)
[2020-12-21] MEDS ORDERED: AMIT10TA7 PO (12:34)
[2020-12-21 13:13] LABS: RSV AMPLIFICATION NEGATIVE (NEGATIVE)
[2020-12-21 13:25] VITALS: BP 118/73
[2020-12-21 13:58] LABS: ALBUMIN 3.7 GM/DL (3.2-5.2); ALT/SGPT 38 U/L (12-78); BILIRUBIN,TOTAL 0.2 MG/DL (0.2-1.0); BLOOD UREA NITROGEN 9 MG/DL (7-18); CALCIUM LEVEL 9.3 MG/DL (8.5-10.1); CARBON DIOXIDE LEVEL 27 MEQ/L (21-32); CHLORIDE LEVEL 104 MEQ/L (98-107); CREATININE FOR GFR 0.58 MG/DL (0.70-1.30); GLOMERULAR FILTRATION RATE > 60.0 (>56); GLUCOSE, FASTING 79 MG/DL (70-100); POTASSIUM SERUM 4.2 MEQ/L (3.5-5.1); SODIUM LEVEL 138 MEQ/L (136-145); TOTAL PROTEIN 7.9 GM/DL (6.4-8.2)
== END 2020-12-21 13:41 | disposition short-term general hospital (02) ==
LOC: M ED 10:59 → EDBD 10:59 → M ED 13:41
DX: S06.5X9A Traumatic subdural hemorrhage with loss of consciousness of unspecified duration, initial encounter (principal); W01.198A Fall on same level from slipping, tripping and stumbling with subsequent striking against other object, initial encounter; Y92.121 Bathroom in nursing home as the place of occurrence of the external cause; Y93.9 Activity, unspecified; Y99.9 Unspecified external cause status; G40.309 Generalized idiopathic epilepsy and epileptic syndromes, not intractable, without status epilepticus; Z79.82 Long term (current) use of aspirin; Z79.52 Long term (current) use of systemic steroids; Z79.899 Other long term (current) drug therapy; Z87.820 Personal history of traumatic brain injury
CPT/HCPCS: 36415; 70450; 72125; 80053; 80183; 85025; 87631; 93041; 94760; 96374; 99285; J2060

== ENCOUNTER → 2020-12-30 | Outpatient (REF) | payer MEDICARE, OTHER ==
[~2020-12-30] MED LIST changes: +ACET-683 GT; +AMIT10TA7 PO; +ASPE16CR TOP; +PRED5TA GT
[2020-12-30 10:16] LABS: HEMATOCRIT 47.5 % (42.0-52.0); MEAN CORPUSCULAR HGB CONC 31.6 g/dl (32.0-36.5); MEAN CORPUSCULAR VOLUME 82.5 fl (80.0-96.0); PLATELET COUNT, AUTOMATED 206 10^3/uL (150-450); RED BLOOD COUNT 5.76 10^6/uL (4.30-6.10)
[2020-12-30 10:44] LABS: ALBUMIN 3.9 GM/DL (3.2-5.2); ALT/SGPT 38 U/L (12-78); BILIRUBIN,TOTAL 0.2 MG/DL (0.2-1.0); BLOOD UREA NITROGEN 8 MG/DL (7-18); CALCIUM LEVEL 9.9 MG/DL (8.5-10.1); CARBON DIOXIDE LEVEL 27 MEQ/L (21-32); CHLORIDE LEVEL 101 MEQ/L (98-107); CREATININE FOR GFR 0.61 MG/DL (0.70-1.30); GLOMERULAR FILTRATION RATE > 60.0 (>56); GLUCOSE, FASTING 81 MG/DL (70-100); POTASSIUM SERUM 4.6 MEQ/L (3.5-5.1); SODIUM LEVEL 135 MEQ/L (136-145); TOTAL PROTEIN 8.8 GM/DL (6.4-8.2)
== END ==
PROVIDERS: ATTEND Internal Medicine
DX: R56.9 Unspecified convulsions (principal)

== ENCOUNTER → 2021-01-09 | Outpatient (REF) | payer MEDICARE, OTHER ==
[2021-01-09 20:24] LABS: RSV AMPLIFICATION NEGATIVE (NEGATIVE)
== END ==
PROVIDERS: ATTEND Internal Medicine
DX: Z11.52 Encounter for screening for COVID-19 (principal)

== ENCOUNTER → 2021-01-14 | Outpatient (REF) | payer MEDICARE, OTHER ==
[2021-01-14 10:54] LABS: HEMATOCRIT 46.2 % (42.0-52.0); HEMOGLOBIN 14.5 g/dl (13.5-17.5); MEAN CORPUSCULAR HEMOGLOBIN 25.6 pg (27.0-33.0); MEAN CORPUSCULAR HGB CONC 31.4 g/dl (32.0-36.5); MEAN CORPUSCULAR VOLUME 81.5 fl (80.0-96.0); PLATELET COUNT, AUTOMATED 213 10^3/uL (150-450); RED BLOOD COUNT 5.67 10^6/uL (4.30-6.10); WHITE BLOOD COUNT 7.7 10^3/uL (4.0-10.0)
[2021-01-14 11:16] LABS: BLOOD UREA NITROGEN 5 MG/DL (7-18); CALCIUM LEVEL 9.4 MG/DL (8.5-10.1); CARBON DIOXIDE LEVEL 27 MEQ/L (21-32); CHLORIDE LEVEL 100 MEQ/L (98-107); CREATININE FOR GFR 0.71 MG/DL (0.70-1.30); GLOMERULAR FILTRATION RATE > 60.0 (>56); GLUCOSE, FASTING 87 MG/DL (70-100); POTASSIUM SERUM 4.2 MEQ/L (3.5-5.1); SODIUM LEVEL 135 MEQ/L (136-145)
== END ==
PROVIDERS: ATTEND Physician Assistant
DX: Z87.820 Personal history of traumatic brain injury (principal)

== ENCOUNTER → 2021-01-21 | Outpatient (CLI) | payer MEDICARE, OTHER ==
--- NOTE | 2021-01-21 15:18 | REP ---
INDICATION: DETERMINE CANDIDACY OF SAFE DIET. COMPARISON: None. TECHNIQUE: The procedure was performed by Clemencia Spears [facility], under the direct supervision of Dr. Jansen. The procedure was performed with Zenobia Quach from speech pathology present. 5 ml aliquots of thin, pudding, mixed fruit, soft food, hard food and pill consistency barium was administered. FINDINGS: No aspiration or penetration was visualized. The detailed report of this examination will be provided by speech pathology. IMPRESSION: No aspiration or penetration was visualized, detailed report will be provided by speech pathology. 2.8 minutes of fluoroscopy time was utilized for this procedure. Some fluoroscopic images are performed with last image hold technology. These images require no additional radiation <Electronically signed by Clemencia Spears > 01/21/21 1506 <Electronically signed by Arnol Jansen > 01/21/21 1512
== END ==
LOC: M ST 13:49
PROVIDERS: ATTEND Physician Assistant
DX: Z13.818 Encounter for screening for other digestive system disorders (principal)

== ENCOUNTER → 2021-01-23 | Outpatient (REF) | payer MEDICARE, OTHER | PROVIDERS: ATTEND Internal Medicine | DX: R56.9 Unspecified convulsions (principal) ==

== ENCOUNTER → 2021-02-10 | Outpatient (REF) | payer MEDICARE, OTHER ==
[2021-02-10 10:11] LABS: HEMATOCRIT 51.6 % (42.0-52.0); HEMOGLOBIN 15.7 g/dl (13.5-17.5); MEAN CORPUSCULAR HEMOGLOBIN 25.4 pg (27.0-33.0); MEAN CORPUSCULAR HGB CONC 30.4 g/dl (32.0-36.5); MEAN CORPUSCULAR VOLUME 83.6 fl (80.0-96.0); PLATELET COUNT, AUTOMATED 227 10^3/uL (150-450); RED BLOOD COUNT 6.17 10^6/uL (4.30-6.10); WHITE BLOOD COUNT 7.3 10^3/uL (4.0-10.0)
[2021-02-10 10:45] LABS: BLOOD UREA NITROGEN 8 MG/DL (7-18); CALCIUM LEVEL 9.2 MG/DL (8.5-10.1); CARBON DIOXIDE LEVEL 25 MEQ/L (21-32); CHLORIDE LEVEL 103 MEQ/L (98-107); CREATININE FOR GFR 0.73 MG/DL (0.70-1.30); GLOMERULAR FILTRATION RATE > 60.0 (>56); GLUCOSE, FASTING 72 MG/DL (70-100); POTASSIUM SERUM 3.8 MEQ/L (3.5-5.1); SODIUM LEVEL 137 MEQ/L (136-145)
== END ==
PROVIDERS: ATTEND Internal Medicine
DX: S06.5X9D Traumatic subdural hemorrhage with loss of consciousness of unspecified duration, subsequent encounter (principal); Z98.2 Presence of cerebrospinal fluid drainage device

== ENCOUNTER 2021-03-07 12:36 | Emergency (ER) | payer MEDICARE, OTHER ==
[~2021-03-07] VITALS: Ht 167.6 cm; Wt 68.2 kg
[2021-03-07] MEDS ORDERED: ISOVUE-370 76% 100ML VIAL As Ordered ONE (13:23)
--- NOTE | 2021-03-07 13:46 | REP ---
INDICATION: CVA COMPARISON: 10/21/2020 TECHNIQUE: Portable AP view of the chest FINDINGS: Diffuse bilateral chronic pleuroparenchymal changes similar to prior examination. Subtle superimposed acute process cannot definitively be excluded. Mediastinum and cardiac silhouette are stable. Ventricular peritoneal shunt identified along the left side of the chest wall. IMPRESSION: Diffuse bilateral chronic pleuroparenchymal changes similar to prior examination. <Electronically signed by Jason Hahn > 03/07/21 [id number]
[2021-03-07 13:58] LABS: BASO % 0.7 % (0.0-1.0); EOS % 0.3 % (0.0-3.0); HEMATOCRIT 48.1 % (42.0-52.0); HEMOGLOBIN 15.2 g/dl (13.5-17.5); LYMPH # 1.5 10^3/uL (1.5-5.0); MEAN CORPUSCULAR HEMOGLOBIN 25.7 pg (27.0-33.0); MEAN CORPUSCULAR HGB CONC 31.6 g/dl (32.0-36.5); MEAN CORPUSCULAR VOLUME 81.4 fl (80.0-96.0); MONO # 0.7 10^3/uL (0.0-0.8); MONO % 11.5 % (2.0-8.0); NEUTROPHILS # 3.7 10^3/uL (1.5-8.5); NEUTROPHILS % 62.3 % (36.0-66.0); PLATELET COUNT, AUTOMATED 259 10^3/uL (150-450); RED BLOOD COUNT 5.91 10^6/uL (4.30-6.10)
--- NOTE | 2021-03-07 13:58 | REP ---
INDICATION: altered mental COMPARISON: 12/21/2020 TECHNIQUE: Axial noncontrast images from the skull base to the thoracic inlet with coronal reformations. This CT examination was performed using the following dose reduction techniques: Automated exposure control, adjustment of mA and/or kv according to the patient's size, and use of iterative reconstruction technique. FINDINGS: In comparison with prior examination, the postsurgical changes including prior right craniotomy and ventriculoperitoneal shunt via the left frontal lobe extending into the lateral ventricles are again noted. The previously identified acute subdural hemorrhage is now increased and an acute component measuring roughly 11 mm maximal width is now identified along the left frontal hemisphere and smaller but increased hemorrhage is also identified along the right hemisphere with hemorrhage also again identified along the tentorium. There is mild left-sided mass effect roughly 2 mm of contralateral midline shift. IMPRESSION: 1. Increased acute subdural hemorrhage primarily noted over the left hemisphere with mild mass effect and minimal contralateral midline shift. <Electronically signed by Jason Hahn > 03/07/21 [id number]
[2021-03-07 15:11] LABS: INR 0.97; PROTHROMBIN TIME 13.1 SECONDS (12.5-14.3)
[2021-03-07 15:12] LABS: PARTIAL THROMBOPLASTIN TIME 24.3 SECONDS (24.2-38.5)
[2021-03-07 15:30] VITALS: BP 136/91
[2021-03-07 15:35] LABS: ALBUMIN 3.4 GM/DL (3.2-5.2); ALT/SGPT 14 U/L (12-78); BILIRUBIN,DIRECT 0.1 MG/DL (0.0-0.2); BILIRUBIN,TOTAL 0.3 MG/DL (0.2-1.0); BLOOD UREA NITROGEN 8 MG/DL (7-18); CALCIUM LEVEL 8.9 MG/DL (8.5-10.1); CARBON DIOXIDE LEVEL 28 MEQ/L (21-32); CHLORIDE LEVEL 104 MEQ/L (98-107); CK-MB VALUE MASS < 1.0 NG/ML (<3.6); CPK CREATINE PHOSPHOKINASE 231 U/L (39-308); CREATININE FOR GFR 0.74 MG/DL (0.70-1.30); GLOMERULAR FILTRATION RATE > 60.0 (>56); GLUCOSE, FASTING 84 MG/DL (70-100); MAGNESIUM LEVEL 2.2 MG/DL (1.8-2.4); MB/CK RELATIVE INDEX 0.43 (< OR =4); POTASSIUM SERUM 4.2 MEQ/L (3.5-5.1); SODIUM LEVEL 139 MEQ/L (136-145); THYROID STIMULATING HORMONE 0.615 uIU/ML (0.358-3.740); TOTAL PROTEIN 8.2 GM/DL (6.4-8.2); TROPONIN I < 0.02 NG/ML (< 0.10)
--- NOTE | 2021-03-08 19:22 | ECGEPIP ---
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
== END 2021-03-07 15:33 | disposition short-term general hospital (02) ==
LOC: EDUNIT# 12:36 → EDBD 12:36 → M ED 12:36
DX: I62.01 Nontraumatic acute subdural hemorrhage (principal); Z79.52 Long term (current) use of systemic steroids; Z79.82 Long term (current) use of aspirin; Z79.899 Other long term (current) drug therapy; I10 Essential (primary) hypertension

== ENCOUNTER 2021-04-09 02:00 | Emergency (ER) | payer MEDICARE, OTHER ==
[~2021-04-09] VITALS: Ht 167.6 cm; Wt 70.9 kg
[2021-04-09 02:42] LABS: BASO % 0.5 % (0.0-1.0); EOS # 0.2 10^3/uL (0.0-0.5); EOS % 3.3 % (0.0-3.0); HEMATOCRIT 45.8 % (42.0-52.0); LYMPH # 1.9 10^3/uL (1.5-5.0); LYMPH % 30.8 % (24.0-44.0); MEAN CORPUSCULAR HEMOGLOBIN 25.4 pg (27.0-33.0); MEAN CORPUSCULAR HGB CONC 30.6 g/dl (32.0-36.5); MEAN CORPUSCULAR VOLUME 83.1 fl (80.0-96.0); MONO % 15.7 % (2.0-8.0); NEUTROPHILS % 49.5 % (36.0-66.0); PLATELET COUNT, AUTOMATED 190 10^3/uL (150-450); RED BLOOD COUNT 5.51 10^6/uL (4.30-6.10)
[2021-04-09 02:56] LABS: BLOOD UREA NITROGEN 6 MG/DL (7-18); CALCIUM LEVEL 8.8 MG/DL (8.5-10.1); CARBON DIOXIDE LEVEL 32 MEQ/L (21-32); CHLORIDE LEVEL 100 MEQ/L (98-107); GLOMERULAR FILTRATION RATE > 60.0 (>56); GLUCOSE, FASTING 98 MG/DL (70-100); POTASSIUM SERUM 4.1 MEQ/L (3.5-5.1); SODIUM LEVEL 135 MEQ/L (136-145)
--- NOTE | 2021-04-09 03:02 | REPVR ---
PROCEDURE INFORMATION: Exam: CT Head Without Contrast Exam date and time: 04/09/2021 2:31 AM Age: 55 years old Clinical indication: Condition or disease; Brain lesion; Prior surgery; Surgery date: <1 month; Additional info: Seizure TECHNIQUE: Imaging protocol: Computed tomography of the head without contrast. Radiation optimization: All CT scans at this facility use at least one of these dose optimization techniques: automated exposure control; mA and/or kV adjustment per patient size (includes targeted exams where dose is matched to clinical indication); or iterative reconstruction. COMPARISON: CT Head without contrast 03/07/2021 1:35 PM FINDINGS: Brain: Right parietal and right frontal encephalomalacia. Right cerebral dural thickening with calcification, stable. Small amount of extradural fluid on the right is stable. There is mixed density left cerebral convexity subdural hemorrhage measuring up to 1.8 cm which is increased from prior examination. Acute blood products are new from prior study. Hemorrhage mildly extends along the left falx and tentorium. There is new acute subdural hemorrhage along the anterior right cerebral convexity measuring up to 5 mm. Left frontal approach ventriculostomy catheter is stable. Mass effect with midline shift to the right measuring 1 cm is increased from prior examination. Cerebral ventricles: There is increased size of the right lateral ventricle compared to prior. Interval increasing size of the right lateral ventricle. Paranasal sinuses: See "Brain" finding. Mastoid air cells: Visualized mastoid air cells are well aerated. Bones/joints: Large right-sided craniectomy with cranioplasty. Soft tissues: Unremarkable. IMPRESSION: 1. Acute on chronic left cerebral convexity subdural hemorrhage mildly extending along the left falx and tentorium measuring up to 1.8 cm, increased. There is new acute hemorrhage in the interval. 2. New acute subdural hemorrhage along the anterior right frontal convexity measures up to 1 cm. 3. Increasing mass effect with midline shift to the right measuring 1 cm. 4. Left lateral ventricle remains decompressed, however there is increasing size of the right lateral ventricle concerning for ventricular trapping. THIS REPORT CONTAINS FINDINGS THAT MAY BE CRITICAL TO PATIENT CARE. The findings were verbally communicated via telephone conference with ALEXIS WEBSTER at 3:01 AM EST on 04/09/2021. The findings were acknowledged and understood. Electronically signed by: Esteban Luong On 04/09/2021 03:02:00 AM
[2021-04-09] MEDS ORDERED: levETIRAcetam INJection 750 MG in D5W 100 ML IV ONE (03:10)
[2021-04-09 03:30] VITALS: BP 118/78
[2021-04-09 03:35] LABS: INR 0.96
[2021-04-09 03:58] LABS: RSV AMPLIFICATION NEGATIVE (NEGATIVE)
== END 2021-04-09 03:55 | disposition short-term general hospital (02) ==
LOC: M ED 02:00
DX: I62.01 Nontraumatic acute subdural hemorrhage (principal); G40.909 Epilepsy, unspecified, not intractable, without status epilepticus; I10 Essential (primary) hypertension; Z87.820 Personal history of traumatic brain injury; Z79.82 Long term (current) use of aspirin; Z79.899 Other long term (current) drug therapy
CPT/HCPCS: 70450; 80048; 85025; 85610; 85730; 87631; 96365; 99285; J1953

== ENCOUNTER 2021-06-22 08:17 | Emergency (ER) | payer MEDICARE, OTHER ==
[~2021-06-22 08:17] MED LIST changes: -LISI2.5T2 PO; +LISI2.5T9 PO
[2021-06-22] MEDS ORDERED: NS 1,000 ML IV SCH (08:30)
[2021-06-22] MEDS ORDERED: LORazepam 2 MG/ML VIAL IV STA (08:47)
[2021-06-22] MEDS ORDERED: LORazepam 2 MG/ML VIAL As Ordered ONE (08:48)
[2021-06-22] MEDS ORDERED: propofoL 1,000 MG in IV 1 EA IV SCH (08:55)
[2021-06-22 08:56] VITALS: BP 122/57
[2021-06-22] MEDS ORDERED: ETOMIDATE INJ 20MG/10ML VIAL IV STA (08:56)
--- NOTE | 2021-06-22 08:57 | REP ---
INDICATION: multiple seizures. COMPARISON: Comparison CT studies are dated March 07, 2021 and December 21, 2020. TECHNIQUE: Helical scanning is acquired. 5 mm axial images were reformatted. Coronal MPR images were generated. FINDINGS: Patient is status post large right-sided frontoparietal and temporal craniotomy with a cranial prosthesis. No acute bony abnormality is seen. There is some vascular calcification in the distal internal carotid arteries. There is a left-sided ventriculoperitoneal shunt which terminates in the frontal horn of the left lateral ventricle. There is a chronic small subdural hygroma in the right frontal region and there is a chronic postoperative dural thickening and calcification underlying the craniectomy site on the right. These findings are unchanged from December 21, 2020. On today's study there is a subacute small to moderate-sized left subdural hematoma. This is less dense and less acute in appearance than on the March 07, 2021 study. It is similar in overall volume, measuring up to 12.5 mm in thickness. There is improvement in the mass effect noted previously with normal size of the lateral and 3rd ventricles. The left lateral ventricle and the 3rd ventricle were compressed on the March 07, 2021 study and this has resolved. There is still a left to right shift in the midline. This measures 5 mm today. There is no evidence of acute hemorrhage. No parenchymal hemorrhage is seen. No acute infarction is observed. IMPRESSION: Moderate-sized left subacute subdural hematoma persists similar in volume to the March 07, 2021 study but with less mass effect. Ventricular size improved. Chronic changes in the right cerebral hemisphere. Post craniectomy. <Electronically signed by Arnol Jansen > 06/22/21 0881
[2021-06-22] MEDS ORDERED: levETIRAcetam INJection 1,000 MG in D5W 100 ML IV ONE (09:00)
[2021-06-22] MEDS ORDERED: SUCCINYLCHOLINE INJ 200 MG/10 ML VIAL (J0330) IV STA ×2 (09:00→09:01)
--- NOTE | 2021-06-22 09:00 | REP ---
INDICATION: multiple seizures. COMPARISON: Multiple the latest 03/07/2021 TECHNIQUE: Portable FINDINGS: The technique utilized in obtaining the radiograph has magnified the cardiac silhouette and accentuated the interstitial markings. There are advanced chronic lung field changes with biapical predominance status quo. Once again, there is a portion of a left-sided ventricular peritoneal shunt catheter status quo. No acute lung field changes seem to have developed. There is no change in the osseous structures. IMPRESSION: Stable appearing chronic changes as described above. <Electronically signed by Ed Velez > 06/22/21 [id number]
--- NOTE | 2021-06-22 09:15 | REP ---
INDICATION: S/P INTUBATION. COMPARISON: 06/22/2021, 8:42 a.m. TECHNIQUE: Single portable AP view of the chest was performed. FINDINGS: There is placement of an endotracheal tube, the tip is approximately 2 cm above the magaly. Nasogastric tube is seen with side port in the stomach. Chronic pleural and parenchymal opacities are unchanged. The cardiomediastinal silhouette is unchanged. IMPRESSION: Endotracheal tube tip approximately 2 cm above the magaly. Nasogastric tube is seen with side port in the stomach. <Electronically signed by Charan Cedeño > 06/22/21 0997
[2021-06-22 09:28] LABS: ABG BASE EXCESS -26.7 (-2.0-2.0); ABG HCO3 6.1 MEQ/L (22.0-26.0); ABG O2 SATURATION 99.7 % (95.0-99.0); ABG PARTIAL PRESSURE CO2 33.1 mmHg (35.0-45.0); ABG PARTIAL PRESSURE O2 389.1 mmHg (75.0-100.0); ABG STANDARD HCO3 7.2 MEQ/L (22.0-26.0); ABG TOTAL CO2 7.1 MEQ/L (22.0-29.0)
[2021-06-22 09:32] LABS: ABG pH (ARTERIAL) 6.885 UNITS (7.350-7.450)
[2021-06-22 09:59] LABS: BASO # 0.1 10^3/uL (0.0-0.2); BASO % 0.6 % (0.0-1.0); EOS % 0.2 % (0.0-3.0); HEMATOCRIT 52.9 % (42.0-52.0); LYMPH # 2.1 10^3/uL (1.5-5.0); MEAN CORPUSCULAR HEMOGLOBIN 26.1 pg (27.0-33.0); MEAN CORPUSCULAR HGB CONC 30.2 g/dl (32.0-36.5); MEAN CORPUSCULAR VOLUME 86.3 fl (80.0-96.0); MONO # 1.2 10^3/uL (0.0-0.8); MONO % 7.3 % (2.0-8.0); NEUTROPHILS # 12.7 10^3/uL (1.5-8.5); NEUTROPHILS % 78.3 % (36.0-66.0); PLATELET COUNT, AUTOMATED 202 10^3/uL (150-450); RED BLOOD COUNT 6.13 10^6/uL (4.30-6.10); WHITE BLOOD COUNT 16.3 10^3/uL (4.0-10.0)
[2021-06-22 10:10] LABS: INR 1.09; PARTIAL THROMBOPLASTIN TIME 24.7 SECONDS (25.9-37.0); PROTHROMBIN TIME 14.6 SECONDS (12.7-14.5)
[2021-06-22 10:28] LABS: ALBUMIN 3.9 GM/DL (3.2-5.2); ALT/SGPT 26 U/L (12-78); BILIRUBIN,DIRECT 0.1 MG/DL (0.0-0.2); BILIRUBIN,TOTAL 0.3 MG/DL (0.2-1.0); BLOOD UREA NITROGEN 6 MG/DL (7-18); CALCIUM LEVEL 9.3 MG/DL (8.5-10.1); CARBON DIOXIDE LEVEL 10 MEQ/L (21-32); CHLORIDE LEVEL 104 MEQ/L (98-107); CK-MB VALUE MASS 3.5 NG/ML (<3.6); CPK CREATINE PHOSPHOKINASE 428 U/L (39-308); CREATININE FOR GFR 1.49 MG/DL (0.70-1.30); FREE T4 0.72 NG/DL (0.76-1.46); GLOMERULAR FILTRATION RATE > 60.0 (>56); GLUCOSE, FASTING 137 MG/DL (70-100); MB/CK RELATIVE INDEX 0.82 (< OR =4); POTASSIUM SERUM 3.9 MEQ/L (3.5-5.1); SODIUM LEVEL 144 MEQ/L (136-145); TOTAL PROTEIN 9.5 GM/DL (6.4-8.2); TROPONIN I < 0.02 NG/ML (< 0.10)
[2021-06-22 10:33] LABS: RSV AMPLIFICATION NEGATIVE (NEGATIVE)
--- NOTE | 2021-06-23 13:47 | ECGEPIP ---
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
== END 2021-06-22 09:50 | disposition short-term general hospital (02) ==
LOC: M ED 08:17 → EDBD 08:17 → M ED 09:50
DX: G40.901 Epilepsy, unspecified, not intractable, with status epilepticus (principal); I62.00 Nontraumatic subdural hemorrhage, unspecified; F10.10 Alcohol abuse, uncomplicated; Z79.51 Long term (current) use of inhaled steroids; Z79.899 Other long term (current) drug therapy
CPT/HCPCS: 31500; 36415; 36600; 51702; 70450; 71045; 80048; 80076; 80180; 80183; 82550; 82553; 82803; 84439; 84443; 84484; 85025; 85610; 85730; 87631; 93005; 93041; 99291; J0330

== ENCOUNTER 2021-07-17 09:24 | Emergency (ER) | payer MEDICARE, OTHER ==
[~2021-07-17] VITALS: Ht 170.2 cm; Wt 60.0 kg
[2021-07-17] MEDS ORDERED: LORazepam 2 MG/ML VIAL IV STA (09:42)
[2021-07-17] MEDS ORDERED: levETIRAcetam INJection 1,000 MG in D5W 100 ML IV ONE (09:45)
--- NOTE | 2021-07-17 10:12 | REP ---
INDICATION: Altered Mental Status COMPARISON: 06/22/2021 TECHNIQUE: Portable AP view of the chest FINDINGS: Chronic appearing fibroatelectatic changes involving the bilateral upper lung zones are again identified and relatively unchanged. Mid to lower lung zones demonstrate chronic changes and remain essentially stable. No obvious acute consolidation, definite acute effusion, or pneumothorax. Left-sided ventriculoperitoneal shunt is stable in position. IMPRESSION: Chronic appearing changes similar to 06/22/2021. Subtle superimposed process cannot be excluded. <Electronically signed by Jason Hahn > 07/17/21 [id number]
--- NOTE | 2021-07-17 11:01 | REP ---
INDICATION: seizure COMPARISON: Multiple examinations dating through 12/21/2020 TECHNIQUE: Axial noncontrast images from the skull base to the thoracic inlet with coronal reformations. This CT examination was performed using the following dose reduction techniques: Automated exposure control, adjustment of mA and/or kv according to the patient's size, and use of iterative reconstruction technique. FINDINGS: Nonacute relatively stable findings include a chronic left subdural collection along with ventriculoperitoneal shunt via the left frontal bone extending into the lateral ventricle as well as prior right craniotomy with underlying chronic postsurgical changes. The left subdural collection no longer demonstrates high density material and measures roughly 11 mm in maximal with. The lateral ventricles are patent the basal cistern is patent. There is no evidence for acute intracranial hemorrhage or mass/mass effect. IMPRESSION: 1. Chronic changes as described above including left subdural collection without obvious active bleeding. Stable right-sided postsurgical changes. 2. No acute intracranial hemorrhage or mass/mass effect. <Electronically signed by Jason Hahn > 07/17/21 [id number]
--- NOTE | 2021-07-17 11:03 | REP ---
INDICATION: seizure, possible fall COMPARISON: None. TECHNIQUE: Axial noncontrast images from the skull base to the thoracic inlet with coronal and sagittal re-formations This CT examination was performed using the following dose reduction techniques: Automated exposure control, adjustment of mA and/or kv according to the patient's size, and use of iterative reconstruction technique. FINDINGS: Straightening of normal lordosis and advanced multilevel degenerative changes include osteophytosis, endplate sclerosis/irregularity, disc space narrowing, and facet hypertrophy primarily involving C4-C7. No acute fracture/compression injury or subluxation. Posterior elements and spinous processes are intact. Spinal canal is relatively patent although chronic posterior osteophytes are identified at C5-6 and C6-7 which cause mild chronic canal stenosis to approximately 10 mm AP diameter. Paravertebral soft tissues are normal. IMPRESSION: Chronic advanced spondylosis. No evidence for acute pathology or trauma/injury. <Electronically signed by Jason Hahn > 07/17/21 [id number]
[2021-07-17 11:25] LABS: VENOUS BASE EXCESS -0.5 (-2.0-2.0); VENOUS HCO3 24.9 MEQ/L (23.0-27.0); VENOUS O2 SATURATION 89.2 % (60.0-80.0); VENOUS PARTIAL PRESSURE CO2 43.6 mmHg (38.0-50.0); VENOUS PARTIAL PRESSURE O2 57.4 mmHg (30.0-50.0); VENOUS PH 7.375 UNITS (7.330-7.430); VENOUS STANDARD HCO3 23.9 MEQ/L; VENOUS TOTAL CO2 26.3 MEQ/L (24.0-28.0)
[2021-07-17 11:34] LABS: BASO % 0.2 % (0.0-1.0); HEMATOCRIT 49.3 % (42.0-52.0); HEMOGLOBIN 15.7 g/dl (13.5-17.5); LYMPH # 1.2 10^3/uL (1.5-5.0); LYMPH % 8.5 % (24.0-44.0); MEAN CORPUSCULAR HEMOGLOBIN 25.5 pg (27.0-33.0); MEAN CORPUSCULAR HGB CONC 31.8 g/dl (32.0-36.5); MONO # 1.3 10^3/uL (0.0-0.8); MONO % 9.3 % (2.0-8.0); NEUTROPHILS # 11.4 10^3/uL (1.5-8.5); NEUTROPHILS % 81.6 % (36.0-66.0); PLATELET COUNT, AUTOMATED 147 10^3/uL (150-450); RED BLOOD COUNT 6.16 10^6/uL (4.30-6.10); WHITE BLOOD COUNT 13.9 10^3/uL (4.0-10.0)
[2021-07-17 12:02] LABS: OSMOLALITY SERUM 286 MOSM/KG (275-295)
[2021-07-17 12:06] LABS: ALBUMIN 3.3 GM/DL (3.2-5.2); ALT/SGPT 21 U/L (12-78); BILIRUBIN,DIRECT 0.2 MG/DL (0.0-0.2); BILIRUBIN,TOTAL 0.7 MG/DL (0.2-1.0); BLOOD UREA NITROGEN 5 MG/DL (7-18); CALCIUM LEVEL 8.9 MG/DL (8.5-10.1); CARBON DIOXIDE LEVEL 26 MEQ/L (21-32); CHLORIDE LEVEL 101 MEQ/L (98-107); CK-MB VALUE MASS 3.6 NG/ML (<3.6); CPK CREATINE PHOSPHOKINASE 417 U/L (39-308); CREATININE FOR GFR 1.04 MG/DL (0.70-1.30); ETHYL ALCOHOL (ETHANOL) < 0.003 % (0.000-0.010); GLOMERULAR FILTRATION RATE > 60.0 (>56); GLUCOSE, FASTING 107 MG/DL (70-100); MB/CK RELATIVE INDEX 0.86 (< OR =4); POTASSIUM SERUM 3.5 MEQ/L (3.5-5.1); SODIUM LEVEL 137 MEQ/L (136-145); TROPONIN I 0.19 NG/ML (< 0.10)
[2021-07-17 12:08] LABS: RSV AMPLIFICATION NEGATIVE (NEGATIVE)
[2021-07-17] MEDS ORDERED: NS 1,000 ML IV ONE (12:15)
[2021-07-17 14:22] LABS: CK-MB VALUE MASS 5.9 NG/ML (<3.6); MB/CK RELATIVE INDEX 1.31 (< OR =4); TROPONIN I 0.52 NG/ML (< 0.10)
[2021-07-17 16:35] LABS: CK-MB VALUE MASS 7.5 NG/ML (<3.6); MB/CK RELATIVE INDEX 1.53 (< OR =4); TROPONIN I 0.89 NG/ML (< 0.10)
[2021-07-17 17:04] LABS: AMPHETAMINES LEVEL URINE NEGATIVE (NEGATIVE); BARBITURATES URINE NEGATIVE (NEGATIVE); BENZODIAZEPINES URINE NEGATIVE (NEGATIVE); CANNABINOIDS URINE NEGATIVE (NEGATIVE); COCAINE METABOLITE URINE NEGATIVE (NEGATIVE); METHADONE URINE NEGATIVE (NEGATIVE); OPIATES URINE NEGATIVE (NEGATIVE); PHENCYCLIDINE URINE NEGATIVE (NEGATIVE)
--- NOTE | 2021-07-17 18:55 | ECGEPIP ---
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
[2021-07-17] MEDS ORDERED: NS 1,000 ML IV SCH (20:40)
[2021-07-17] MEDS ORDERED: OXAZEPAM 15 MG CAP PO ONE (20:40)
[2021-07-17 21:30] VITALS: BP 122/79
--- NOTE | 2021-07-18 08:02 | ECGEPIP ---
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
--- NOTE | 2021-07-18 08:03 | ECGEPIP ---
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
== END 2021-07-17 21:45 | disposition short-term general hospital (02) ==
LOC: M ED 09:24 → EDBD 09:24 → M ED 21:45
DX: R00.0 Tachycardia, unspecified (principal); I21.3 ST elevation (STEMI) myocardial infarction of unspecified site; F10.130 Alcohol abuse with withdrawal, uncomplicated; R56.9 Unspecified convulsions; I25.10 Atherosclerotic heart disease of native coronary artery without angina pectoris; Z87.820 Personal history of traumatic brain injury; M47.892 Other spondylosis, cervical region; Z79.899 Other long term (current) drug therapy
CPT/HCPCS: 36415; 70450; 71045; 72125; 80048; 80076; 80307; 81001; 82077; 82550; 82553; 82803; 83605; 83930; 84443; 84484; 85025; 87040; 87086; 87631; 93005; 93041; 96365; 96366; 96375; 99285; J1953; J2060

== ENCOUNTER 2021-07-30 18:09 | Emergency (ER) | payer MEDICARE, OTHER ==
[~2021-07-30] VITALS: Ht 167.6 cm; Wt 70.9 kg
[~2021-07-30 18:09] MED LIST changes: -EZET10TA21 GT; +EZET10TA21 PO; -FOLI1TAB11 GT; -METO25TA4 GT; +METO25TA4 PO; -MODA200T15 GT; +MODA200T15 PO; -PRED5TA GT; -PROTPAK GT; +PROTPAK PO; -ROPI1TAB3 GT; +ROPI1TAB3 PO
[2021-07-30] MEDS ORDERED: LORazepam 2 MG TAB PO PRN (19:45)
[2021-07-30] MEDS: THIAMINE 100 MG TAB PO SCH (20:30)
[2021-07-30 20:33] LABS: AMPHETAMINES LEVEL URINE NEGATIVE (NEGATIVE); BARBITURATES URINE NEGATIVE (NEGATIVE); BENZODIAZEPINES URINE NEGATIVE (NEGATIVE); CANNABINOIDS URINE NEGATIVE (NEGATIVE); COCAINE METABOLITE URINE NEGATIVE (NEGATIVE); METHADONE URINE NEGATIVE (NEGATIVE); OPIATES URINE NEGATIVE (NEGATIVE); PHENCYCLIDINE URINE NEGATIVE (NEGATIVE)
[2021-07-30 22:29] LABS: HEMATOCRIT 46.4 % (42.0-52.0); HEMOGLOBIN 14.8 g/dl (13.5-17.5); MEAN CORPUSCULAR HEMOGLOBIN 25.6 pg (27.0-33.0); MEAN CORPUSCULAR HGB CONC 31.9 g/dl (32.0-36.5); MEAN CORPUSCULAR VOLUME 80.3 fl (80.0-96.0); PLATELET COUNT, AUTOMATED 227 10^3/uL (150-450); RED BLOOD COUNT 5.78 10^6/uL (4.30-6.10); WHITE BLOOD COUNT 7.3 10^3/uL (4.0-10.0)
[2021-07-30] MEDS ORDERED: METOPROLOL TART 25 MG TABLET PO ONE (22:30)
[2021-07-30 23:03] LABS: ACETAMINOPHEN LEVEL < 2.0 UG/ML (10.0-30.0); ALBUMIN 3.4 GM/DL (3.2-5.2); ALT/SGPT 34 U/L (12-78); BILIRUBIN,DIRECT 0.1 MG/DL (0.0-0.2); BILIRUBIN,TOTAL 0.4 MG/DL (0.2-1.0); BLOOD UREA NITROGEN 4 MG/DL (7-18); CARBON DIOXIDE LEVEL 27 MEQ/L (21-32); CHLORIDE LEVEL 110 MEQ/L (98-107); ETHYL ALCOHOL (ETHANOL) 0.291 % (0.000-0.010); GLOMERULAR FILTRATION RATE > 60.0 (>56); GLUCOSE, FASTING 91 MG/DL (70-100); POTASSIUM SERUM 4.3 MEQ/L (3.5-5.1); SALICYLATE LEVEL < 1.7 MG/DL (5.0-30.0); SODIUM LEVEL 142 MEQ/L (136-145)
--- NOTE | 2021-07-30 23:32 | REPVR ---
PROCEDURE INFORMATION: Exam: CT Head Without Contrast Exam date and time: 07/30/2021 10:58 PM Age: 55 years old Clinical indication: Injury or trauma; Fall; Concussion/head injury; Prior surgery; Surgery date: 6+ months; Surgery type: Craniotomy; Additional info: Fall, head injury TECHNIQUE: Imaging protocol: Computed tomography of the head without contrast. Radiation optimization: All CT scans at this facility use at least one of these dose optimization techniques: automated exposure control; mA and/or kV adjustment per patient size (includes targeted exams where dose is matched to clinical indication); or iterative reconstruction. COMPARISON: CT Head without contrast 07/17/2021 10:37 AM FINDINGS: Tubes, catheters and devices: Left frontal approach ventriculostomy catheter is stable. Brain: Right frontal, right temporal and right parietal encephalomalacia. There are bilateral cerebral convexity extra-axial fluid collections measuring up to 8 mm on the right and 1.2 cm on the left. This is stable bilaterally. There is linear hyperdensity along the deep aspect of the collection on the left which is increased compared to prior study. Right cerebral dural thickening and calcification. Mass effect with midline shift to the right measuring 5 mm. This is unchanged from prior examination. Cerebral ventricles: Stable ventricular size. Partial effacement of the left lateral ventricle. Paranasal sinuses: Visualized sinuses are unremarkable. No fluid levels. Mastoid air cells: Mild partial opacification of the bilateral mastoid air cells. Bones/joints: Previous right-sided craniectomy with cranioplasty. Soft tissues: Left superior scalp soft tissue injury. IMPRESSION: 1. Bilateral cerebral convexity subdural fluid collections greater on the left, not significantly change with regards to size. 2. Smooth curvilinear hyperdensity along the deep aspect of the collection on the left, new. This is at least in part secondary to dural thickening, component of new/acute hemorrhage however is not excluded and follow-up is recommended. 3. Linear hyperdensity involving the right-sided subdural fluid collection demonstrates calcification and is compatible with dural thickening. This is stable. 4. Mass effect with midline shift to the right is stable. Electronically signed by: Esteban Luong On 07/30/2021 23:32:23 PM
--- NOTE | 2021-07-30 23:35 | REPVR ---
PROCEDURE INFORMATION: Exam: CT Cervical Spine Without Contrast Exam date and time: 07/30/2021 10:58 PM Age: 55 years old Clinical indication: Neck pain; Additional info: Fall, head injury TECHNIQUE: Imaging protocol: Computed tomography images of the cervical spine without contrast. Radiation optimization: All CT scans at this facility use at least one of these dose optimization techniques: automated exposure control; mA and/or kV adjustment per patient size (includes targeted exams where dose is matched to clinical indication); or iterative reconstruction. COMPARISON: CT Spine,cervical w/o contrast 07/17/2021 10:37 AM FINDINGS: Bones/joints: Mild nonspecific reversal. Minimal retrolisthesis of C5 on C6. Vertebral body heights are preserved. Dmqa-lv-bzswvplc degenerative change about the dens. Moderate prevertebral osteophytosis. No acute cervical spine fracture. Discs/Spinal canal/Neural foramina: No definite significant central canal stenosis within limitations of technique. Multilevel cervical foraminal stenoses. Lungs: Scarring at the lung apices. Soft tissues: Unremarkable. IMPRESSION: No acute cervical spine fracture. Electronically signed by: Esteban Luong On 07/30/2021 23:35:30 PM
--- NOTE | 2021-07-31 04:59 | REPVR ---
PROCEDURE INFORMATION: Exam: CT Head Without Contrast Exam date and time: 07/31/2021 5:00 AM Age: 55 years old Clinical indication: Injury or trauma; Fall; Concussion/head injury; Consciousness not specified; Patient HX: Follow up; Additional info: Rads request, fall, calcifications vs bleed TECHNIQUE: Imaging protocol: Computed tomography of the head without contrast. Radiation optimization: All CT scans at this facility use at least one of these dose optimization techniques: automated exposure control; mA and/or kV adjustment per patient size (includes targeted exams where dose is matched to clinical indication); or iterative reconstruction. COMPARISON: CT Head without contrast 07/30/2021 11:07 PM FINDINGS: Tubes, catheters and devices: Left frontal approach ventriculostomy catheter is stable. Brain: Bilateral cerebral convexity subdural fluid collections are again demonstrated, stable from prior. Right-sided dural thickening and calcification is stable. Curvilinear hyperdensity involving the left-sided collection is stable, dural thickening favored. Foci of right frontal, right temporal and right parietal encephalomalacia. There is mild volume loss. Mass effect with midline shift to the right is stable. Cerebral ventricles: Stable ventricular size and configuration. Paranasal sinuses: Visualized sinuses are unremarkable. No fluid levels. Mastoid air cells: Visualized mastoid air cells are well aerated. Bones/joints: Previous right-sided craniectomy with cranioplasty. No acute calvarial fracture. Soft tissues: Left superior scalp soft tissue injury including skin ubaldo. IMPRESSION: Stable bilateral cerebral convexity subdural fluid collections including curvilinear hyperdensity on the left favored to represent dural thickening rather than acute hemorrhage. Electronically signed by: Esteban Luong On 07/31/2021 04:58:55 AM
[2021-07-31] MEDS ORDERED: ACET1TAB55 PO (08:37)
[2021-07-31] MEDS ORDERED: KEPP1TAB PO (08:37)
[2021-07-31] MEDS ORDERED: REFRSOL OU (08:37)
[2021-07-31] MEDS ORDERED: SENN-80 PO (08:37)
[2021-07-31] MEDS ORDERED: HOME MED LIST COMPLETE! XX SCH (08:40)
[2021-07-31] MEDS ORDERED: MODAFINIL 100 MG TABLET PO SCH (09:00)
[2021-07-31] MEDS ORDERED: METOPROLOL TART 25 MG TABLET PO SCH (09:00)
[2021-07-31] MEDS ORDERED: levETIRAcetam 250MG TABLET (KEPPRA) PO SCH ×2 (09:00→09:15)
[2021-07-31] MEDS ORDERED: MULTIVITAMINS/MINERALS THERAP 1 TAB PO SCH (09:00)
[2021-07-31] MEDS ORDERED: FOLIC ACID 1 MG TAB PO SCH (09:00)
[2021-07-31] MEDS ORDERED: PANTOPRAZOLE 40MG TAB (PROTONIX) PO SCH (09:00)
[2021-07-31] MEDS ORDERED: predniSONE 5 MG TAB PO SCH (09:00)
[2021-07-31] MEDS: THIAMINE 100 MG TAB PO SCH (11:05)
[2021-07-31 11:06] VITALS: BP 135/87
[2021-07-31 14:00] VITALS: BP 142/86
== END 2021-07-31 14:00 | disposition home or self-care (01) ==
LOC: M ED 18:09
DX: F10.129 Alcohol abuse with intoxication, unspecified (principal); S01.81XA Laceration without foreign body of other part of head, initial encounter; W19.XXXA Unspecified fall, initial encounter; Y92.238 Other place in hospital as the place of occurrence of the external cause; Y93.89 Activity, other specified; Y99.9 Unspecified external cause status; Z91.51 Personal history of suicidal behavior; Z87.820 Personal history of traumatic brain injury; Z79.899 Other long term (current) drug therapy
CPT/HCPCS: 12002; 70450; 72125; 80048; 80076; 80143; 80307; 82077; 84443; 85027; 99285; J7512

== ENCOUNTER 2021-08-03 08:46 | Emergency (ER) | payer MEDICARE, OTHER ==
[~2021-08-03] VITALS: Ht 167.6 cm; Wt 72.6 kg
[~2021-08-03 08:46] MED LIST changes: +ACET1TAB55 PO; +KEPP1TAB PO; +REFRSOL OU; +SENN-80 PO
[2021-08-03] MEDS ORDERED: levETIRAcetam INJection 1,000 MG in D5W 100 ML IV ONE (09:45)
[2021-08-03 11:15] VITALS: BP 142/98
== END 2021-08-03 11:19 | disposition home or self-care (01) ==
LOC: M ED 08:46
DX: G40.909 Epilepsy, unspecified, not intractable, without status epilepticus (principal); F10.10 Alcohol abuse, uncomplicated; I10 Essential (primary) hypertension; E78.5 Hyperlipidemia, unspecified; I25.10 Atherosclerotic heart disease of native coronary artery without angina pectoris; Z87.820 Personal history of traumatic brain injury; Z79.899 Other long term (current) drug therapy
CPT/HCPCS: 99284; J1953

== ENCOUNTER 2021-09-10 00:11 | Emergency (ER) | payer MEDICARE, OTHER ==
[~2021-09-10] VITALS: Ht 167.6 cm; Wt 63.6 kg
[2021-09-10 02:55] LABS: AMPHETAMINES LEVEL URINE NEGATIVE (NEGATIVE); BARBITURATES URINE NEGATIVE (NEGATIVE); BENZODIAZEPINES URINE NEGATIVE (NEGATIVE); CANNABINOIDS URINE NEGATIVE (NEGATIVE); COCAINE METABOLITE URINE NEGATIVE (NEGATIVE); METHADONE URINE NEGATIVE (NEGATIVE); OPIATES URINE NEGATIVE (NEGATIVE); PHENCYCLIDINE URINE NEGATIVE (NEGATIVE)
[2021-09-10 04:33] LABS: HEMATOCRIT 54.3 % (42.0-52.0); HEMOGLOBIN 16.9 g/dl (13.5-17.5); MEAN CORPUSCULAR HEMOGLOBIN 25.8 pg (27.0-33.0); MEAN CORPUSCULAR HGB CONC 31.1 g/dl (32.0-36.5); MEAN CORPUSCULAR VOLUME 82.8 fl (80.0-96.0); PLATELET COUNT, AUTOMATED 271 10^3/uL (150-450); RED BLOOD COUNT 6.56 10^6/uL (4.30-6.10); WHITE BLOOD COUNT 7.1 10^3/uL (4.0-10.0)
[2021-09-10] MEDS ORDERED: LORazepam 2 MG TAB PO PRN (04:55)
[2021-09-10 05:05] LABS: ACETAMINOPHEN LEVEL < 2.0 UG/ML (10.0-30.0); ALBUMIN 3.4 GM/DL (3.2-5.2); ALT/SGPT 35 U/L (12-78); BILIRUBIN,DIRECT < 0.1 MG/DL (0.0-0.2); BILIRUBIN,TOTAL 0.3 MG/DL (0.2-1.0); BLOOD UREA NITROGEN 7 MG/DL (7-18); CALCIUM LEVEL 8.9 MG/DL (8.5-10.1); CARBON DIOXIDE LEVEL 26 MEQ/L (21-32); CHLORIDE LEVEL 110 MEQ/L (98-107); CREATININE FOR GFR 0.77 MG/DL (0.70-1.30); ETHYL ALCOHOL (ETHANOL) 0.253 % (0.000-0.010); GLOMERULAR FILTRATION RATE > 60.0 (>56); GLUCOSE, FASTING 76 MG/DL (70-100); POTASSIUM SERUM 4.4 MEQ/L (3.5-5.1); SALICYLATE LEVEL < 1.7 MG/DL (5.0-30.0); SODIUM LEVEL 143 MEQ/L (136-145); TOTAL PROTEIN 8.7 GM/DL (6.4-8.2)
[2021-09-10 05:18] LABS: RSV AMPLIFICATION NEGATIVE (NEGATIVE)
--- OUTSIDE RECORDS SUMMARY | 2021-09-10 05:45 | CCD | Continuity of Care Document ---
Author Author Tuan BERNSTEIN P.A.-C. Organization Unknown Address [address] [place] [address] Phone [phone] Care Team Providers Care Psychiatric Registered Nurse Name Role Phone Tiffany Talbot D.O. [employer] [phone] Problems Active Problems Provider Date Chronic low back pain Martha Dunlap M.D. Onset: 01/23/2015 Lumbosacral radiculopathy Martha Dunlap M.D. Onset: 015 Social History Type Date Description Comments Sex Unknown Tobacco Use Start: Unknown End: Unknown Patient is a former smoker Allergies and adverse reactions Description No Known Drug Allergies Medications Description No Active Medications Immunizations Description No Information Available Vital Signs Date Vital Result Comment 07/30/2021 9:08am BP Systolic 130 mmHg BP Diastolic 90 mmHg Heart Rate 86 /min Respiratory Rate 16 /min Weight 138.00 lb 04/28/2021 6:09am BP Systolic 124 mmHg BP Diastolic 80 mmHg Heart Rate 88 /min Respiratory Rate 16 /min Results Description No Information Available Procedures Date Code Description Status 07/30/2021 66533 Office/Outpatient Established Mo d MDM 30-39 Min Completed 04/28/2021 29598 Office/Outpatient Established Mo d MDM 30-39 Min Completed Medical Devices Description No Information Available Encounters Type Date Location Provider Dx Diagnosis Office Visit 07/30/2021 11:45a Main office - [place] Neda ramirez P.A.-C. I63.89 Other cerebral infarction S06.5x9D Traum subdr hem w Loc of uns p duration, subs G40.909 Epilepsy, unsp, not intracta ble, without status epilepticus G31.84 Mild cognitive impairment, s o stated I69.854 Hemiplga fol oth cerebvasc d isease aff left nondom side G24.8 Other dystonia Office Visit 04/28/2021 10:30a Main office - [place] Marlee BriceñoC. G40.909 Epilepsy, unsp, not intractable, without status epilepticus S06.5x9D Traum subdr hem w Loc of uns p duration, subs I63.89 Other cerebral infarction G31.84 Mild cognitive impairment, s o stated I69.854 Hemiplga fol oth cerebvasc d isease aff left nondom side G24.8 Other dystonia Assessments Date Code Description Provider 07/30/2021 I63.89 Other cerebral infarction Marlee SaulC. 07/30/2021 S06.5x9D Traumatic subdural h emorrhage with loss of consciousness of unspecified duration, subsequent encounter Marlee IrvinC. 07/30/2021 G40.909 Epilepsy, unspecifie d, not intractable, without status epilepticus Rosalio IrvinA.-C. 07/30/2021 G31.84 Mild cognitive impairment, so st ated Elvia Irvin.A.-C. 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 07/30/2021 G24.8 Other dystonia Marlee IrvinCSanchez 04/28/2021 G40.909 Epilepsy, unspecifie d, not intractable, without status epilepticus Elvia Irvin.A.-C. 04/28/2021 S06.5x9D Traumatic subdural h emorrhage with loss of consciousness of unspecified duration, subsequent encounter Rosalio IrvinASanchez-C. 04/28/2021 I63.89 Other cerebral infarction Rosalio SaulASanchez-C. 04/28/2021 G31.84 Mild cognitive impairment, so st ated Rosalio IrvinA.-C. 04/28/2021 I69.854 Hemiplegia and hemip aresis following other cerebrovascular disease affecting left non-dominant side Neda Bernstein P.A.-C. 04/28/2021 G24.8 Other dystonia Neda Bernstein P.A.-C. Plan of Treatment Future Appointment(s):* 10/26/2021 1:30 pm - Neda Bernstein P.A.-C. at Main office [facility] 07/30/2021 - Neda Bernstein P.A.-C.* I63.89 Other cerebral infarction* Comments:* Not recurrent. * S06.5x9D Traumatic subdural hemorrhage with loss of consciousness of unspecified duration, subsequent encounter* Comments:* Follow up with Dr Alcocer. * G40.909 Epilepsy, unspecified, not intractable, without status epilepticus* Comments:* Get records from [facility] and [facility]. Trileptal level pending. * G31.84 Mild cognitive impairment, so stated* Comments:* Stable. * I69.854 Hemiplegia and hemiparesis following other cerebrovascular disease affecting left non-dominant side* Comments:* Improved. * G24.8 Other dystonia* Comments:* Follow up with orthopedics. * Follow up:* 3 months Functional Status Description No Information Available Mental Status Description No Information Available Referrals Description No Information Available
--- OUTSIDE RECORDS SUMMARY | 2021-09-10 05:45 | CCD | Continuity of Care Document ---
Author Author Tuan BERNSTEIN P.A.-C. Organization Unknown Address [address] [place] [address] Phone [phone] Care Team Providers Care Microsoft Net Developer Name Role Phone Tiffany Talbot D.O. [employer] [phone] Problems Active Problems Provider Date Chronic low [...] Available Vital Signs Date Vital Result Comment 04/28/2021 6:09am BP Systolic 124 mmHg BP Diastolic 80 mmHg Heart Rate 88 /min Respiratory Rate 16 /min 01/22/2021 10:34am BP Systolic 124 mmHg BP Diastolic 80 mmHg Heart Rate 88 /min Respiratory Rate 16 /min Height 65 inches 5'5" Weight 142.00 lb BMI (Body Mass Index) 23.6 kg/m2 [place] Body Weight 136 lb Results Description No Information Available Procedures Date Code Description Status 04/28/2021 25998 Office/Outpatient Established Mo d MDM 30-39 Min Completed Medical Devices Description No Information Available Encounters Type Date Location Provider Dx Diagnosis Office Visit 04/28/2021 10:30a Main office - [place] Neda ramirez P.A.-C. G40.909 Epilepsy, unsp, not intractable, without status epilepticus S06.5x9D Traum subdr hem w Loc of uns p duration, subs I63.89 Other cerebral infarction G31.84 Mild cognitive impairment, s o stated I69.854 Hemiplga fol oth cerebvasc d isease aff left nondom side G24.8 Other dystonia Assessments Date Code Description Provider 07/30/2021 I63.89 Other cerebral infarction Neda Bernstein P.A.-C. 07/30/2021 S06.5x9D Traumatic subdural h emorrhage with loss of consciousness of unspecified duration, subsequent encounter Elvia Irvin.A.-C. 07/30/2021 G40.909 Epilepsy, unspecifie d, not intractable, without status epilepticus Neda Bernstein P.A.-C. 07/30/2021 G31.84 Mild cognitive impairment, so st ated Neda Bernstein P.A.-C. 07/30/2021 I69.854 Hemiplegia and hemip aresis following other cerebrovascular disease affecting left non-dominant side Neda Bernstein P.A.-C. 07/30/2021 G24.8 Other dystonia Neda Bernstein P.A.-C. 04/28/2021 G40.909 Epilepsy, unspecifie d, not intractable, without status epilepticus Neda Bernstein P.A.-C. 04/28/2021 S06.5x9D Traumatic subdural h emorrhage with loss of consciousness of unspecified duration, subsequent encounter Neda Bernstein P.A.-C. 04/28/2021 I63.89 Other cerebral infarction Neda Bernstein P.A.-C. 04/28/2021 G31.84 Mild cognitive impairment, so st ated Neda Bernstein, P.A.-C. 04/28/2021 I69.854 Hemiplegia and hemip aresis following other cerebrovascular disease affecting left non-dominant side Neda Bernstein P.A.-C. 04/28/2021 G24.8 Other dystonia Neda Bernstein P.A.-C. Plan of Treatment No Information Available Functional Status Description No Information Available Mental Status Description No Information Available Referrals Description No Information Available
--- OUTSIDE RECORDS SUMMARY | 2021-09-10 05:45 | CCD | Continuity of Care Document ---
Author Author Tuan RAMIREZ MD Organization Unknown Address [facility] [place] [address] Phone [phone] Care Team Providers Care Labor Arbitrator Hearing Office Name Role Phone Seth Reyez DO AUTM [phone] Fitz Quevedo MD AUTM [phone] Ed Shen MD AUTM Unavailable Gilberto Dunlap AUTM [phone] Charan Gamez DO AUTM [phone] Yrn Leblanc MD AUTM [phone] Gonsalo Kim MD AUTM [phone] Other Provider AUTM Unavailable Problems Active Problems Provider Date Coronary arteriosclerosis Nell Grewal, PA-C Onset: 2011 Old myocardial infarction Nell Grewal PA-C Onset: 2011 Patient post percutaneous transluminal coronary angiop lasty Nell Grewal PA-C Onset: 01/10/2012 Electrocardiogram abnormal Nell Grewal, PA-C Onset: 01/09 Benign essential hypertension Nell Grewal, PA-C Onset: Pure hypercholesterolemia Nell Grewal, PA-C Onset: 2011 Obstructive sleep apnea syndrome Nell Grewal, PA-C Onset: 01/01/2013 Essential hypertension Nell Grewal, PA-C Onset: 5 Premature beats Nell Grewal PA-C Onset: 01/28/2017 Social History Type Date Description Comments Sex Unknown ETOH Use Long history of heavy alcohol us e Has had multiple relapses - reports he is not currently drinking. Tobacco Use Start: Unknown End: Unknown Patient is a former smoker smoked for 17 years up to 7 cigarettes a day, quit 04/08 Smoking Status Reviewed: 04/08/21 Patient is a former smoker sm oked for 17 years up to 7 cigarettes a day, quit 04/08 Exercise Type/Frequency Physical Therapy startin g 04/20/2021 Exercise Type/Frequency Walks daily around t he house Exercise Type/Frequency Does gardening sporadica lly Exercise Type/Frequency Does yardwork sporadical ly Exercise Limitations Shortness Of Breath Exercise Limitations Back Pain Exercise Limitations Fatigue Allergies, Adverse Reactions, Alerts Description No Known Drug Allergies Medications Active Medications SIG Qnty Indications Ordering Provide r Date Goniotaire 2.5% Solution as d irected Unknown 04/07/2021 Aspercreme Lidocaine 4% Liquid 2-4x/d as needed Unknown 04/07/[address] 1 by mouth once daily Unknown 04/07/2021 Trileptal 600mg Tablets 2x a day Unknown 04/07/2021 Aspirin 81mg Chewtabs 1 by mouth every day Unknown 04/07/2021 Metoprolol Succinate ER 25mg Tablets ER 24HR 1 by mouth every day Unknown 021 Amitriptyline HCL 25mg Tablets 1 by mouth every day at bedtime Unknown 04/07/2021 Tylenol Extra Strength 500mg Table ts 2 by mouth twice daily as needed Unknown 03/2021 Folic Acid 1mg Tablets 1 by mouth every day Unknown 04/07/2021 Provigil 200mg Tablets 1 b mouth daily Unknown 04/07/2021 Requip 1mg Tablets 1 by mouth 2 times daily Unknown 04/07/2021 Vitamin B-1 100mg Tablets 1 by mouth every day Unknown 04/07/2021 Senna 8.6mg Tablets 1 by mouth every day Unknown 04/07/2021 Artificial Tears 1-0.3% Solution 1 drop in each eye as directed Unknown 04/07/2021 Prednisone 5mg Tablets 1 by mouth every other day Unknown 01/31/2019 Zetia 10mg Tablets 1 by mouth every night at bedtime 90tabs E78.00 Jamie Ramirez MD 02/06/2016 Nitrostat 0.4mg Tablets Sub 1 sl every 5min x3 as needed for chest pain 25tabs I25.10 Jamie Ramirez MD 05/26/2007 Immunizations Description No Information Available Vital Signs Date Vital Result Comment 04/08/2021 9:53am Weight 133.00 lb Home Weight 138lb Height 63 inches 5'3" BMI (Body Mass Index) 23.6 kg/m2 Heart Rate 92 /min Regular Respiratory Rate 16 /min BP Systolic Right Arm 112 mmHg sitting, regular c uff BP Diastolic Right Arm 64 mmHg sitting, regular cuff BP Systolic Left Arm 110 mmHg sitting BP Diastolic Left Arm 64 mmHg sitting 02/05/2020 10:34am Weight 140.00 lb Height 63 inches 5'3" BMI (Body Mass Index) 24.8 kg/m2 Heart Rate 88 /min Regular Respiratory Rate 16 /min BP Systolic Right Arm 110 mmHg sitting, regular c uff BP Diastolic Right Arm 68 mmHg sitting, regular cuff BP Systolic Left Arm 110 mmHg sitting BP Diastolic Left Arm 68 mmHg sitting Results Test Acquired Date Facility Test Result H/L Range Note Basic Metabolic Panel 02/10/2021 [facility] - not interfac ed (315)- - Glucose 72 70-100 Blood Urea Nitrogen 8 7-18 Creatinine 0.73 0.70-1.30 Sodium 137 136-145 Potassium 3.8 3.5-5.1 Chloride 103 98-107 Carbon Dioxide 25 21-32 Calcium 9.2 8.2-9.6 GFR (Calculated) >60.0 >32 CBC without Differential 02/10/2021 [facility] - not inter faced (315)- - White Blood Count 7.3 4.0-10.0 Red Blood Count 6.17 High 4.30-6.10 Platelets 227 150-450 Hemoglobin 15.7 Hematocrit 51.6 Procedures Date Code Description Status 05/07/2021 46951 Chronic Care MGMT 20 Mins Clinical Staff Time Per Calendar Month Completed 04/08/2021 97575 Office/Outpatient Established Mo d MDM 30-39 Min Completed 04/08/2021 43515 ECG 12-Lead Completed 02/27/2021 20340 Chronic Care MGMT 20 Mins Clinical Staff Time Per Calendar Month Completed Medical Devices Description No Information Available Encounters Type Date Location Provider Dx Diagnosis Office Visit 05/07/2021 8:37a Main Office Jamie Ramirez MD I25.10 Athscl heart disease of [place] coronary artery w/o ang pctrs I10 Essential (primary) hyperten maria g Office Visit 04/08/2021 9:45a Main Office Nell Grewal, PA-C R06.0 2 Shortness of breath I25.10 Athscl heart disease of [place] coronary artery w/o ang pctrs I25.2 Old myocardial infarction Z95.5 Presence of coronary angiopl asty implant and graft R94.31 Abnormal electrocardiogram [ ECG] [EKG] I10 Essential (primary) hyperten maria g I49.3 Ventricular premature depola rization E78.00 Pure hypercholesterolemia, u nspecified G47.33 Obstructive sleep apnea ([place]) (pediatric) Office Visit 02/27/2021 9:49a Main Office Jamie Ramirez MD I10 Essential (primary) hypertension E78.00 Pure hypercholesterolemia, u nspecified Assessments Date Code Description Provider 05/07/2021 I25.10 Atherosclerotic heart disease of [place] coronary artery with Jamie Ramirez MD 05/07/2021 I10 Essential (primary) hypertension Jamie Ramirez MD 04/08/2021 R06.02 Shortness of breath Nell wheatley PA-C 04/08/2021 I25.10 Atherosclerotic heart disease of [place] coronary artery with Nell Grewal, PA-C 04/08/2021 I25.2 Old myocardial infarction Nell Grewal, PA-C 04/08/2021 Z95.5 Presence of coronary angioplasty implant and graft Nell Grewal, PA-C 04/08/2021 R94.31 Abnormal electrocardiogram [ECG] [EKG] Nell Gerwal, PA-C 04/08/2021 I10 Essential (primary) hypertension Nell Grewal, PA-C 04/08/2021 I49.3 Ventricular premature depolariza tion Nell Grewal, PA-C 04/08/2021 E78.00 Pure hypercholesterolemia, unspe cified Nell Grewal, PA-C 04/08/2021 G47.33 Obstructive sleep apnea (adult) (pediatric) Nell Grewal, PA-C 02/27/2021 I10 Essential (primary) hypertension Jamie Ramirez MD 02/27/2021 E78.00 Pure hypercholesterolemia, unspe cified Jamie Ramirez MD Plan of Treatment Future Appointment(s):* 09/17/2021 8:00 am - ECHO at Main Office * 07/15/2021 10:30 am - Cardiac PET at Main Office * 10/09/2021 9:45 am - Nell Grewal PA-C at Main Office 04/08/2021 - Nell Grewal PA-C* R06.02 Shortness of breath* New Xrays:* US Echocardiogram Transthoracic W Doppler And Color Flow, Scheduled: 09/17/21 * PET Myocardial Perfusion Multi Study AT [facility], Scheduled: 07/15/21 * I25.10 Atherosclerotic heart disease of [place] coronary artery with* New Xrays:* PET Myocardial Perfusion Multi Study AT [facility], Scheduled: 07/15/21 * I25.2 Old myocardial infarction * Z95.5 Presence of coronary angioplasty implant and graft * R94.31 Abnormal electrocardiogram [ECG] [EKG]* New Xrays:* PET Myocardial Perfusion Multi Study AT [facility], Scheduled: 07/15/21 * I10 Essential (primary) hypertension * I49.3 Ventricular premature depolarization * E78.00 Pure hypercholesterolemia, unspecified * G47.33 Obstructive sleep apnea (adult) (pediatric) * All * Follow up:* 6 month follow up. Functional Status Functional Condition Comment Date Status Independent with all ADL's Activ e Mental Status Description No Information Available Referrals Description No Information Available
--- OUTSIDE RECORDS SUMMARY | 2021-09-10 05:45 | CCD ---
Author JOHN Booth [facility] Address [address] [place] [address] Care Team Providers Care Real Estate Professor Name Role Phone Leigh Wrays PLEASE READ PROHIBITION ON RE-DISCLOSURE "This information has been disclosed to you from records protected by Federal confidentiality rules (42 CFR part 2). The Federal rules prohibit you from making any further disclosure of this information unless further disclosure is expressly permitted by the written consent of the person to whom it pertains or as otherwise permitted by 42 CFR part 2. A general authorization for the release of medical or other information is NOT sufficient for this purpose. The Federal rules restrict any use of the information to criminally investigate or prosecute any alcohol or drug abuse patient."
(42 C.F.R. 2.32) Functional Status No Results Allergies No Known Allergy Information Encounters Program Name Primary Diagnosis Admission Date/ Time Discharge Date/Time Center of Treatment [place] Alcohol use disorder, moderate TueJun 25 16:20:00 EDT 2020Aug 12 12:15:00 EST 2020 Immunizations No Known Immunizations Lab Results No Known Laboratory Results Medications No Known Medication Information Problems No Known Problems Procedures No Known Procedures Social History Social History Observation Description Jeferson e Smoking Status Current Every Da y Smoker TueJun 25 08:00:00 EDT 2020 Smoking Status Current Every Da y Smoker TueJun 25 08:00:00 EDT 2020 Sex Male TueSep 03 07:00:00 EST 1964 Vital Signs No Known Vitals
--- OUTSIDE RECORDS SUMMARY | 2021-09-10 05:46 | CCD | Continuity of Care Document ---
Author Author Tuan RAMIREZ MD Organization Unknown Address [place] [address] Phone [phone] Care Team Providers Care Training And Development Manager Name Role Phone Seth Reyez DO AUTM [phone] Fitz Quevedo MD AUTM [phone] Ed Shen MD AUTM Unavailable Gilberto Dunlap AUTM [phone] Charan Gamez DO AUTM [phone] Yrn Leblanc MD AUTM [phone] Gonsalo Kim MD AUTM [phone] Other Provider AUTM Unavailable Problems Active Problems [...] H/L Range Note Basic Metabolic Panel 02/10/2021 [facility] - not interfac ed (315)- - Glucose 72 70-100 Blood Urea Nitrogen 8 7-18 Creatinine 0.73 0.70-1.30 Sodium 137 136-145 Potassium 3.8 3.5-5.1 Chloride 103 98-107 Carbon Dioxide 25 21-32 Calcium 9.2 8.2-9.6 GFR (Calculated) >60.0 >32 CBC without Differential 02/10/2021 [facility] - not inter faced (315)- - White Blood Count 7.3 4.0-10.0 Red Blood Count 6.17 High 4.30-6.10 Platelets 227 150-450 Hemoglobin 15.7 Hematocrit 51.6 Procedures Date Code Description Status 05/07/2021 85242 Chronic Care MGMT 20 Mins Clinical Staff Time Per Calendar Month Completed 04/08/2021 89731 Office/Outpatient Established Mo d MDM 30-39 Min Completed 04/08/2021 25617 ECG 12-Lead Completed 02/27/2021 61592 Chronic Care MGMT 20 Mins Clinical Staff Time Per Calendar Month Completed Medical Devices Description No Information Available Encounters Type Date Location Provider Dx Diagnosis Office Visit 05/07/2021 8:37a Main Office Jamie Ramirez MD I25.10 Athscl heart disease of [place] coronary artery w/o ang pctrs I10 Essential [...] Provider 05/07/2021 I25.10 Atherosclerotic heart disease of [place] coronary artery with Jamie Ramirez MD 05/07/2021 I10 Essential (primary) hypertension Jamie Ramirez MD 04/08/2021 R06.02 Shortness of breath Nell wheatley PA-C 04/08/2021 I25.10 Atherosclerotic heart disease of [place] coronary artery with Nell Grewal, PA-C 04/08/2021 I25.2 Old myocardial infarction Nell Grewal, PA-C 04/08/2021 Z95.5 Presence of coronary angioplasty implant and graft Nell Grewal, PA-C 04/08/2021 R94.31 Abnormal electrocardiogram [ECG] [EKG] Nell Grewal, PA-C 04/08/2021 I10 Essential (primary) hypertension Nell [...] 07/15/21 * I25.10 Atherosclerotic heart disease of [place] coronary artery with* New Xrays:* PET Myocardial [...]
--- OUTSIDE RECORDS SUMMARY | 2021-09-10 05:46 | CCD | Continuity of Care Document ---
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 AUTM [phone] Rogelio Fernández M.D. AUTM [phone] Problems Active Problems Provider Date Sarcoidosis Seth Reyez DO Onset: 12/09/2020 Social History Type Date Description Comments Sex Unknown Tobacco Use Start: Unknown Never Smoked Cigarettes ETOH Use Never used alcohol Tobacco Use Start: Unknown Quit Smoking Status Reviewed: 12/09/20 Quit Allergies, Adverse Reactions, Alerts Description No Known Drug Allergies Medications Active Medications SIG Qnty Indications Ordering Provide r Date Modafinil 200mg Tablets via enteral tube once daily Unknown Folic Acid 1mg Tablets via enteral tube once daily Unknown Aspirin [address] enteral tube once daily Unknown Pantoprazole Sodium 40mg Tablets D R 20 mls via enteral tube daily Unknown 0 Prednisone 5mg Tablets via enteral tube once daily Unknown Requip 1mg Tablets via enteral tube twice daily Unknown Gabapentin 300mg Capsules via enteral tube once daily Unknown Levetiracetam 500mg Tablets Unknown Ezetimibe 10mg Tablets Campanaro, Flaquita, P.A. Metoprolol Tartrate 25mg Tablets Campanaro, Flaquita, P.A. Senna 8.6mg Tablets Campanaro, Flaquita, P.A. Oxcarbazepine 150mg Tablets Take 4 Tablets 600MG By Mouth Two Times A Day AT 0600 And 2000 And 3 Tablets Unknown Immunizations CPT Code Status Date Vaccine Lot # [id number] Given 07/11/2019 Pneumococcal PPSV23 66378 Given 07/11/2019 Flublock, Quadrivalent 54281 Given 08/16/2017 Influenza Virus Split 3 Yrs And Above For Intramuscular Use 50322 Given 07/30/2014 Influenza Virus Split 3 Yrs And Above For Intramuscular Use 50592 Given Unknown Pneumococcal PPSV23 06611 Given Unknown Influenza Virus Split Children 6-35 Mo Of Age Intramuscular Use Vital Signs Date Vital Result Comment 06/11/2021 9:30am BP Systolic 138 mmHg BP Diastolic 90 mmHg Heart Rate 76 /min O2 % BldC Oximetry 98 % Height 66 inches 5'6" Weight 139.00 lb BMI (Body Mass Index) 22.4 kg/m2 [place] Body Weight 142 lb Weight 63.050 kg BSA (Body Surface Area) 1.71 m2 12/09/2020 9:34am BP Systolic 120 mmHg BP Diastolic 90 mmHg Heart Rate 80 /min O2 % BldC Oximetry 98 % Room Air Body Temperature 96.6 F Height 66 inches 5'6" [place] Body Weight 142 lb Results Test Acquired Date Facility Test Result H/L Range Note FVL/[place] 06/11/2021 [facility] SEE IMAGE FVC-Pred 3.49 L FVC-Pre 1.34 L FVC-%Pred-Pre 38 L FVC-LLN 2.65 L Fev1-Pred 2.73 L Fev1-Pre 1.18 L Fev1-%Pred-Pre 43 L Fev1-LLN 1.99 L Fev6-Pred 3.36 L Fev6-Pre 1.34 L Fev6-%Pred-Pre 40 L Fev6-LLN 2.53 L Kgu9uhv-Booi 79 % Puh9hod-Zgz 88 % Byk9avr-%Pred-Pre 111 % Ppz4sal-RDN 68 % Dlo3qfg-Stmc 96 % Rrc7ysb-Byc 100 % Sfo7oxf-%Pred-Pre 103 % FEFMax-Pred 7.58 L/E/sec FEFMax-Pre 2.91 L/E/sec FEFMax-%Pred-Pre 38 L/E/sec FEFMax-LLN 5.21 L/E/sec Pnj2172-Sqcn 2.67 L/E/sec Fse9820-Ydy 1.44 L/E/sec Rdc9698-%Pred-Pre 53 L/E/sec Bxn9129-QTJ 1.08 L/E/sec ExpTime-Pre 7.94 sec Wxa3hqx2-Kcxk 81 % Tyr3ppo8-Wbp 88 % Wqd9ypv0-%Pred-Pre 107 % Apc4uun5-JHC 72 % Procedures Date Code Description Status 06/11/2021 74224 Office/Outpatient Established Lo w MDM 20-29 Min Completed 06/11/2021 07084 Spirometry Completed Medical Devices Description No Information Available Encounters Type Date Location Provider Dx Diagnosis Office Visit 06/11/2021 9:30a [facility] D shanthi Reyez DO 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 He is aware of signs and symptoms to watch for, and will call should they occur.~ We discussed the importance of infection surveillance, as he is particularly susceptible to bronchopulmonary infection. ~ I have encouraged his efforts with physical therapy for reconditioning. ~ We have arranged a follow-up visit for re-evaluation of sarcoidosis in six months. We will update spirometry and flow volume loop testing at that time.06/11/21 OFFICE VISIT (page 2 of 2) * Follow up:* Follow in six months for reevaluation of sarcoidosis. Spirometry/FVL at follow-up. Functional Status Description No Information Available Mental Status Description No Information Available Referrals Description No Information Available
--- OUTSIDE RECORDS SUMMARY | 2021-09-10 05:46 | CCD | Summary of Care ---
Author [facility] Address Unknown Phone Unavailable Care Team Providers Care Scroll Shear Operator Name Role Phone James Zuniga DO PCP Reason for Visit * Reason Comments Seizures * Auth/Cert Referred By Contact Referred To Contact Status Reason Specialty Diagnoses / Procedures Diagnoses Status epilepticus Status epilepticus Encounter Details Care Team Description Date Type Department Jameel Brannon MD [address], [place] [id number] Radha Tiwari MD [address] [place] [address] [phone] Status epilepticus (Primary Dx); Sinus tachycardia; Person under investigation for COVID-19; History of traumatic brain injury; 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; Fall from furniture, initial encounter 06/22/[address] SURGERY/TRAUMA - Encounter [address] [facility] 06/25/2021 [place] [address] Allergies No Known Active Allergiesdocumented as of this encounter (statuses as of 06/25/2021) Medications End Date Status Medication Sig Dispensed Refills Start Date 2021 Active Folic Acid 1 MG Oral 1 tablet by 30 tablet 1 09/04 Tablet (FOLVITE) Per G Tube 0 route daily 2021 Active Ezetimibe 10 MG Oral Take 1 tablet 30 tablet 11 Tablet (ZETIA) by mouth 0 nightly 2021 Active Hypromellose 2.5 % Place 1 drop 15 mL 12 Ophthalmic Solution into both 0 (GONIOSOL) eyes Three times daily Active acetaminophen (TYLENOL) Take 500 mg 0 500 MG tablet by mouth every 4 (four) hours as needed for Pain Active Artificial Tears 0.5-0.6 Place 1 drop 0 % Ophthalmic Solution into both (Polyvinyl eyes Four Alcohol-Povidone) times daily Active Amitriptyline HCl 25 MG Take 25 mg by 0 Oral Tablet (ELAVIL) mouth nightly 1 Active Vitamin B-1 100 MG Oral Take 100 mg 0 Tablet by mouth daily 05/09/2022 Active levETIRAcetam 500 MG Oral Take 1 tablet 60 tablet 11 Tablet (KEPPRA) by mouth Two 1 Times Daily Active Ascorbic Acid 500 MG Oral Take 500 mg 0 Tablet (ASCORBIC ACID) by mouth daily Active Bisacodyl [address] 10 mg 0 Suppository (DULCOLAX) rectally daily as needed for Constipation Active Vitamin D Take 1,000 0 (Cholecalciferol) 25 MCG Units by (1000 UT) Oral Capsule mouth daily Active Artificial Tear Solution Apply 1 drop 0 (GENTEAL TEARS OP) to eye Three times daily Both eyes Active Metoprolol Tartrate 25 MG Take 25 mg by 0 Oral Tablet (LOPRESSOR) mouth Two Times Daily Active Modafinil 200 MG Oral Take 200 mg 0 Tablet (PROVIGIL) by mouth daily Active Tab-A-Martín/Beta Carotene Take 1 tablet 0 Oral Tablet by mouth daily Active Nitroglycerin 0.[address] 0.4 mg 0 Sublingual Tablet under the Sublingual (NITROSTAT) tongue every 5 (five) minutes as needed for Chest pain Active Pantoprazole Sodium 20 MG Take 20 mg by 0 Oral Tablet Delayed mouth daily Release (PROTONIX) Active predniSONE 5 MG Oral Take 5 mg by 0 Tablet (DELTASONE) mouth daily Active rOPINIRole HCl 1 MG Oral Take 1 mg by 0 Tablet (REQUIP) mouth Two Times Daily Active Senna 8.6 MG Oral Tablet Take 1 tablet 0 by mouth daily documented as of this encounter (statuses as of 06/25/2021) Active Problems Patient Care Coordination Note 12/22/2020 Patient is a resident of [facility]. Per conversation with admission rep Amy, patient does not qualify for Medicaid and is responsible for transportation costs. [facility] depts NOT covering cost of transport back to facility. 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 S/P evacuation of subdural hematoma documented as of this encounter (statuses as of 06/25/2021) Resolved Problems Problem Noted Date Resolved Date Acute subdural hematoma 07/08/2020 08/06/2020 Ileus 07/03/2020 07/08/2020 Impaired mobility 06/30/2020 07/08/2020 Acute subdural hematoma 06/16/2020 07/08/2020 Subdural hematoma 06/16/2020 07/08/2020 Premature beats 01/28/2017 07/08/2020 Obstructive sleep apnea syndrome 01/01/201307/08 Benign essential hypertension 07/20/2012 07/08/20 20 Coronary arteriosclerosis 01/10/2012 07/08/2020 Old myocardial infarction 01/10/2012 07/08/2020 Pure hypercholesterolemia 01/10/2012 07/08/2020 documented as of this encounter (statuses as of 06/25/2021) Immunizations Name Administration Dates Next Due documented as of this encounter Social History Date Tobacco Use Types Packs/Day Years Used Former Smoker Smokeless Tobacco: Never Used Comments Alcohol Use Standard Drinks/Week quit 10 yrs ago Yes 0 (1 standard drink = 0.6 o z pure alcohol) Sex Assigned at Date Recorded Not on file Industry Job Start Date Occupation Not on file Not on file Not on file documented as of this encounter Last Filed Vital Signs Reading Time Taken Comments Vital Sign 145/103 06/25/2021 10:54 AM EDT Blood Pressure 99 06/25/2021 10:54 AM EDT Pulse 37.2 C (99 F) 06/25/2021 10:54 AM EDT Temperature 18 06/25/2021 10:54 AM EDT Respiratory Rate 95% 06/25/2021 10:54 AM EDT Oxygen Saturation - - Inhaled Oxygen Concentration - - Weight 172 cm (5' 7.72") 06/22/2021 11:18 AM EDT Height - - Body Mass Index documented in this encounter Discharge Summaries * Radha Tiwari MD - 06/25/2021 9:09 AM EDT Physician Discharge Summary Admission date: 06/22/2021 Discharge date and time: 06/25/21 Principal Diagnosis at Discharge: Status epilepticus Subjective: Chief Complaint: Status epilepticus History of Present Illness: Tuan Verdugo is a 55 y.o. 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 History was obtained from patient's spouse Selma Verdugo over telephone [ ]. Per Selma, patient was drinking heavily yesterday, 7-8 drinks of hard liquor, an d this morning around 7:30 AM he started having his typical seizure episodes whi ch she described as generalized stiffening of all 4 extremities, eyes rolling in to back of his head and non-responsive to verbal or physical stimuli. Per Selma, each episode was 5-7 minutes long and he did not return back to his baseline be tween episodes. He then had 1-2 more episodes at [facility], although description of these is not currently available. He was intubated at [facility] and placed on propofol, given [address] head was done which showed improv ement of his SDH, especially left SDH and midline shift compared to previous CT head done 05/09. His ABG at [facility] showed pH of 6.89, PCO2 33, PO2 389, HCO3 6. He also had leukocytosis of 16.3 and CK of 428. He was transferred to [facility] or further evaluation. On my assessment in the ED, patient was off sedation, awake, intubated, moving a ll 4 extremities purposefully, able to follow commands. Ethyl alcohol level was negative. Of note, patient was recently hospitalized and discharged from [facility] 05/10 after a similar presentation of seizure clusters in the setting of alcohol withdrawal. Past Medical History: The patient has a past medical history of Alcohol abuse, Coronary arteriosclero sis (01/10/2012), Coronary artery disease, Essential hypertension, Head trauma, Hy perlipidemia, Hypertension, Leg pain, Lower back pain, Obstructive sleep apnea s yndrome (01/01/2013), Old myocardial infarction (01/10/2012), Premature beats (2016), Pulmonary fibrosis, Pure hypercholesterolemia (01/10/2012), Sarcoidosis of lung, Seizure disorder, Seizures, and Stroke. Past Surgical History: The patient has a past surgical history that includes Coronary angioplasty with stent and Craniotomy. Allergies: No Known Allergies Prior to Admission Medications: Medications Prior to Admission Medication Sig Dispense Refill Last Dose acetaminophen (TYLENOL) 500 MG tablet Take 500 mg by mouth every 4 (four) hours as needed for Pain Amitriptyline HCl 25 MG Oral Tablet (ELAVIL) Take 25 mg by mouth nightly Artificial Tear Solution (GENTEAL TEARS OP) Apply 1 drop to eye Three monster es daily Both eyes Artificial Tears 0.5-0.6 % Ophthalmic Solution (Polyvinyl Alcohol-Povidon e) Place 1 drop into both eyes Four times daily Ascorbic Acid 500 MG Oral Tablet (ASCORBIC ACID) Take 500 mg by mouth virgen ly Bisacodyl 10 MG Rectal Suppository (DULCOLAX) Place 10 mg rectally daily as needed for Constipation Ezetimibe 10 MG Oral Tablet (ZETIA) Take 1 tablet by mouth nightly 30 tab let 11 Folic Acid 1 MG Oral Tablet (FOLVITE) 1 tablet by Per G Tube route daily 30 tablet 1 Hypromellose 2.5 % Ophthalmic Solution (GONIOSOL) Place 1 drop into both eyes Three times daily 15 mL 12 levETIRAcetam 500 MG Oral Tablet (KEPPRA) Take 1 tablet by mouth Two Time s Daily 60 tablet 11 Metoprolol Tartrate 25 MG Oral Tablet (LOPRESSOR) Take 25 mg by mouth Two Times Daily Modafinil 200 MG Oral Tablet (PROVIGIL) Take 200 mg by mouth daily Nitroglycerin 0.4 MG Sublingual Tablet Sublingual (NITROSTAT) Place 0.4 m g under the tongue every 5 (five) minutes as needed for Chest pain Pantoprazole Sodium 20 MG Oral Tablet Delayed Release (PROTONIX) Take 20 mg by mouth daily predniSONE 5 MG Oral Tablet (DELTASONE) Take 5 mg by mouth daily rOPINIRole HCl 1 MG Oral Tablet (REQUIP) Take 1 mg by mouth Two Times Virgen ly Senna 8.6 MG Oral Tablet Take 1 tablet by mouth daily Tab-A-Martín/Beta Carotene Oral Tablet Take 1 tablet by mouth daily Vitamin B-1 100 MG Oral Tablet Take 100 mg by mouth daily Vitamin D (Cholecalciferol) 25 MCG (1000 UT) Oral Capsule Take 1,000 Unit s by mouth daily Social History: Social History Tobacco Use Smoking status: Former Smoker Smokeless tobacco: Never Used Substance Use Topics Alcohol use: Yes Comment: quit 10 yrs ago Family History: Family History Problem Relation Age of Onset Early Sister Early Brother Stroke Brother Alcohol abuse Other Drug abuse Other REVIEW OF SYSTEMS Unable to obtain as patient is intubated. PHYSICAL EXAM Temp: [37.1 C (98.8 F)] 37.1 C (98.8 F) Pulse: [123-126] 123 Resp: [14] 14 BP: (124-136)/(95-104) 136/104 FiO2: [30 %-60 %] 30 % SpO2: [99 %-100 %] 100 % O2 Therapy: Oxygen General Exam: General appearance - alert and cooperative, intubated off sedation Skin - No cyanosis or pallor HEENT - Head: Normal, normocephalic, atraumatic. Cardiovascular - sinus tachycardia Respiratory - crackles in lower lung moore bilaterally Gastrointestinal - Bowel sounds present and Abdomen soft, non-tender Extremities - extremities normal, atraumatic, no cyanosis or edema Neurologic: Mental status - awake, alert, follows commands in midline and in all 4 extremiti es Language - Able to follow 3-step commands crossing midline, intubated Cranial nerves -PERRL, VFF to confrontation, EOMI, face appears symmetric Sensation - Intact to noxious in all 4 extremities Strength - Able to lift all 4 extremities antigravity, R > L Cerebellar - No tremors noted Gait = Deferred as patient is intubated Neglect = Absent Glascow Coma Scale: 11T (E4, V1, M6) Eye Response Spontaneous eye opening 4 points Opens to verbal command, speech, or shout 3 points Opens to pain, not applied to face 2 points No eye opening 1 point Verbal Response Alert and oriented 5 points Confused conversation, but able to answer questions 4 points Inappropriate responses, jumbled phrases, but discernible words 3 points Incomprehensible speech 2 points No sounds 1 point Motor Response Obeys commands for movement fully 6 points Localizes to noxious stimuli 5 points Withdraws from noxious stimuli 4 points Abnormal flexion, decorticate posturing 3 points Extensor response, decerebrate posturing 2 points No response 1 point Hospital Course: Neurological: Patient was originally transferred from OSH after developing seizu res likely in setting of ETOH abuse. Home Keppra resumed. CTH negative. EEG perf ormed showed no clearcut epileptiform discharges or seizure activity. Cardiovascular: Stable Pulmonary: Patient was intubated at OSH. Extubated on 06/23. Gastrointestinal: Regular Diet Genitourinary: Stable Laboratory Work-Up: Stable Discharge Exam: General Exam: Temp: [36.3 C (97.3 F)-37.1 C (98.8 F)] 36.3 C (97.3 F) Pulse: [58-126] 61 Resp: [12-16] 12 BP: (94-169)/(78-104) 163/103 FiO2: [30 %-60 %] 30 % SpO2: [98 %-100 %] 100 % O2 Therapy: Oxygen General appearance - in no apparent distress Skin - Normal HEENT - Head: Normocephalic, no lesions, without obvious abnormality. Cardiovascular - regular rate Respiratory - intubated, symmetric chest rise Gastrointestinal - soft, nontender Extremities - extremities normal, atraumatic, no cyanosis or edema Neurologic: Mental status - alert and oriented x 3; opens eyes spontaneously Language - Follows command Cranial nerves -Extraocular movements full, normal and symmetrical facial streng th Sensation - intact to light touch Strength - moves extremities spontaneously and against gravity Cerebellar - deferred Gait =deferred Neglect = absent Condition at Discharge: Stable Disposition: Home or Self Care Patient Instructions: 1) No heavy lifting or strenuous activity 2) Regular Diet 3) Avoid excessive alcohol intake 4) PT/OT recommending 24 hr supervision at home. Spoke w/ spouse Selma who can c onfirm that she takes care of him. When she works, her son will be taking care o f patient. Medication List CONTINUE taking these medications acetaminophen 500 MG tablet Commonly known as: TYLENOL amitriptyline 25 MG tablet Commonly known as: ELAVIL Artificial Tears 5-6 MG/ML Soln Generic drug: Polyvinyl Alcohol-Povidone bisacodyl 10 MG suppository Commonly known as: DULCOLAX ezetimibe 10 MG tablet Commonly known as: ZETIA Take 1 tablet by mouth nightly folic acid 1 MG tablet Commonly known as: FOLVITE 1 tablet by Per G Tube route daily GENTEAL TEARS OP hydroxypropyl methylcellulose 2.5 % ophthalmic solution Commonly known as: GONIOSOL Place 1 drop into both eyes Three times daily levETIRAcetam 500 MG tablet Commonly known as: KEPPRA Take 1 tablet by mouth Two Times Daily metoprolol tartrate 25 MG tablet Commonly known as: LOPRESSOR modafinil 200 MG tablet Commonly known as: PROVIGIL multivitamin tablet nitroglycerin 0.4 MG SL tablet Commonly known as: NITROSTAT pantoprazole 20 MG tablet Commonly known as: PROTONIX predniSONE 5 MG tablet Commonly known as: DELTASONE ropinirole 1 MG tablet Commonly known as: REQUIP senna 8.6 MG tablet vitamin B-1 100 MG tablet vitamin C 500 MG tablet Commonly known as: ASCORBIC ACID Vitamin D (Cholecalciferol) 25 MCG (1000 UT) capsule Follow up 1) Please follow up w/ PCP w/in 1 week of discharge N-ICU ATTENDING ADDENDUM: Date of Encounter: 06/25/21 I personally saw and examined the patient, discussed the case and formulated ass essment and plan with the RAHUL and agree with the history, exam, assessment and p sosa outlined in the RAHUL note except where stated in the supplemental documentati on by myself. 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 F/u with : 1. PCP in 1-2 weeks. 2. Neurology clinic in 3-6 months 3. Neurosurgery clinic on 07/01 with repeat CTH Total time >30 min, more than 50% of time spent counseling pt and coordinating d/c and f/u plan. Discussed with: patient and staff Signature: Radha Tiwari documented in this encounter Discharge Instructions * Discharge Instr - Lab* Yojana Chavez LMSW - 06/25/2021 5:25 PM EDT Substance Use [facility] [phone] Mental Health Provider that patient has already arranged with to do homevisits. documented in this encounter Progress Notes * Niyah Walters RN - 06/25/2021 5:19 PM EDT Patient currently waiting for cab with patient transport. Discharge instructions reviewed with patient. Patient intermittently confused, repeating self at times. Patient being discharged to home with 24 hour supervision provided by son. Pap erwork sent with patient and he was told to give to his son. * Sharron Luke RN - 06/25/2021 2:20 PM EDT Patient is ready for discharge today. CM spoke to patient's spouse Selma Shepard isaiah who confirmed that patient will have 24 hours supervision at home provided by her and their son Harsha. Patient will need transportation home. CM spoke to [facility] and was informed that patient does not have transport benefit. CM spoke to Selma and requested for Selma to cover transportation cost. Selma stated that she does not have funds for transport and insisted on [facility] covering the cost. Update CM Director on the above. OPAL department will arrange for a cab for today's discharge home at 1700. CM to follow. * Ashli Mcdonnell PT - 06/25/2021 10:14 AM EDT Physical Therapy Acute Care Encounter Note Medical Diagnosis: Fall Seizure cluster with suspected status epilepticus, now resolved Acute hypoxic respiratory failure requiring mechanical ventilation, now extubated on 06/23/21 Rehabilitation Precautions/Restrictions: OOB to chair Goal Review Visit Number: 2 SUBJECTIVE Patient Report: Male in bed, NAD. +IV to LUE. Pain: Patient currently complains of pain. Location: RUE IV site . Patient describes pain as Nonspecific. Verbal Scale: Patient reports a pain level of 5 out of 10. Will perform therapy only as tolerated. (RN aware, has already assessed, no further intervention at this time) Pain Medication Today: yes. OBJECTIVE General Observation: Male in bed, NAD. Oriented and appropriate in conversation, but slow cognitive processing time is noted. Skin Integrity Screen: visible skin appears intact Vital Signs: Stable. Functional Status: Transfers: Patient transferred sit to/from stand requiring stand by assistance. Patient used the following equipment: Gait belt - use per hospital policy. Stand by assist provided for safety due to recent seizure and seizure precautions, but no overt loss of balance noted. Bed Mobility: Within functional limits. Locomotion/Gait/Ambulation: Patient was stand by assist with gait/ambulation for 200 ft, 150 ft . Patient requires the following assistive device(s): Gait belt. IV pole . Stairs: Patient was stand by assistance for up/down 4 steps . Patient used the following equipment: Unilateral Railing. Outcome Measures: [facility] "6 Clicks" Basic Mobility Inpatient Short Form: Turning over in bed: A little difficulty (3) Sitting down on and standing up from a chair with arms: A little difficulty (3) Moving from lying on back to sitting on the side of the bed: A little difficulty (3) Moving to and from a bed to a chair (including a wheelchair): No help (4) Walking in hospital room: A little help (3) Climbing 3-5 steps with a railing: A little help (3) Raw Score 19 /24. Interventions: Gait Training: Faciliated gait training, 2 bouts to fatigue, with IV pole for unilateral support. Pt demonstrated slow, cautious gait, indicating he felt "slower" than usual, but no overt losses of balance. Pt was cued for safety and pacing. Pt was also instructed in and practiced stair navigation with single rail to simulate home environment. Education: Mode of education provided: Explanation. Demonstration. Audience: Patient. Education Provided: Safe mobility, treatment plan. . Response: Applied knowledge. ASSESSMENT Response to Visit: The session was tolerated well. Pain: Yes, pain is unchanged from start of today's treatment. PLAN Treatment Frequency, Duration and Interventions: Restorative Physical Therapy is recommended for 5x per week for 2 weeks Treatment is to include: Therapeutic Exercise. Therapeutic Activity. Neuromuscular Re-education. Gait Training. Recommended Physical Therapy Follow Up: Upon acute care discharge, the following is currently recommended: 24 hour supervision. Equipment Provided: None issued this visit. Visit Number: Today's visit is number 2 Program: General Medicine (Therapist may be reached on [employer]) SESSION: Duration: 25 CHARGES: 74817 - CHARGE - PT GAIT TRNG - 15 MIN 2 Units - GENERAL MEDICINE VISIT 1 Units - ORDER - Physical Therapy Treatment 1 Units Total treatment minutes: 25.00 Minutes Electronically Signed by: Ashli Mcdonnell PT, DPT, 06/25/2021 2:52:04 PM * Ana Garces RN - 06/25/2021 3:32 AM EDT All times approximated: 2315: Report rec'd from previous RN. Collaborative bedside report complete. 0250: Report given to 5A RN. 0325: Patient transported to . 5A RN to assume care of patient at this time. * Radha Tiwari MD - 06/24/2021 6:37 PM EDT [facility] [place] [address] PATIENT NAME: Tuan Verdugo, DATE OF : 1965 . Neurocritical Care Progress Note: Date of Encounter: 06/24/2021 Length of stay: 2 Tuan Verdugo is a 55 y.o. male patient with: Status epilepticus Past Medical History/Family History/Social History has not changed since last re view/admission. Complete review of systems was performed. Significant positives (other than noted in interim history): none Interval history: extubated yesterday, doing well. Feels almost back to baseline . Current Medications: Reviewed. amitriptyline 25 mg Oral Nightly ezetimibe 10 mg Oral Nightly folic acid 1 mg Per G Tube Daily heparin (porcine) 5,000 Units Subcutaneous BID levETIRAcetam 500 mg Oral BID metoprolol tartrate 25 mg Oral BID vitamin B-1 100 mg Oral Daily Vital signs in last 24 hours: Temp: [36.7 C (98.1 F)-37 C (98.6 F)] 37 C (98.6 F) Pulse: [89-105] 93 Resp: [17-20] 19 BP: (121-145)/(77-104) 144/104 SpO2: [97 %-98 %] 97 % O2 Therapy: Room air Intake/Output last 3 shifts: I/O last 3 completed shifts: In: 5973.1 [P.O.:2790; I.V.:3183.1] Out: 2650 [Urine:2650] Intake/Output this shift: I/O this shift: In: 240 [P.O.:240] Out: - General Exam: General appearance - in no apparent distress Visit Vitals BP 144/104 (BP Location: Right arm, Patient Position: Sitting) Pulse 93 Temp 37 C (98.6 F) (Oral) Resp (!) 19 Ht 1.72 m SpO2 97% BMI 19.81 kg/m Skin - Warm, moist HEENT - s/p VPS placement Cardiovascular - regular HR Respiratory - no wheezing Gastrointestinal - Abdomen soft, non-tender Extremities - extremities normal, atraumatic, no cyanosis or edema Neurologic: Mental status - alert and oriented x 3 Language - no dysarthria; no aphasia Cranial nerves - DIVYA, EOMI, no facial asymmetry Sensation - intact to light touch Strength - R Arm = 5/5 R Leg =5 /5 L Arm = 5/5 L Leg = 5/5 Cerebellar - no ataxic movements noted Gait - deferred Neglect - deferred Data Review: CBC: Lab Results Component Value Date WBC 9.8 06/24/2021 RBC 5.25 06/24/2021 HGB 13.4 (L) 06/24/2021 HCT 42.2 06/24/2021 PLT 104 (L) 06/24/2021 BMP: Lab Results Component Value Date NA 140 06/24/2021 K 3.9 06/24/2021 CL 107 06/24/2021 BICARBONATE 17 (L) 06/24/2021 GLUCOSE 111 06/24/2021 BUN 6 06/24/2021 CREATININE 1.23 (H) 06/24/2021 BCR 5 06/24/2021 LABOSMO 275 (L) 06/21/2020 GFRAA 74 06/24/2021 GFRNONAA 64 06/24/2021 No results for input(s): PHART, PO2ART, WEC4ENS, BEART in the last 168 hours. Invalid input(s): O2 SAT ART Imaging: no new imaging today Medical Decision Making: Principal Problem: Status epilepticus - resolved. Cont home LEV Active Problems: Acute respiratory failure d/t RN CORRECTIONAL compromise and inability to maintain open ai rway - resolved, saturating well on RA Chronic subdural hematoma, L>R, with brain compression and Midline shift of brain; Communicating hydrocephalus, 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 - CTH at OSH with improvement in L SDH, ventricle and MLS size. NSx consulted - no acute intervention. Pulmonary fibrosis - CXR at baseline. Alcohol abuse - no sign of withdrawal. Cont thiamine, folate, MVI. Counseled p t against drinking alcohol. Essential hypertension - cont home metoprolol. Oropharyngeal dysphagia - resolved. Impaired mobility and activities of daily living - PT/OT - 24 hr supervision. Acute encephalopathy - much improved. Cont supportive care. Plan to discharge to home tomorrow. Discussed with: patient and ICU team * Yesenia Her - 06/24/2021 1:10 PM EDT Spiritual Care Progress Note Automatic Clipper: Rev. Evelyn Nolent. Automatic Clipper Patient Name: Tuan Verdugo Age: 55 y.o. Sex: male Room/Bed: 48644/1 Olive Affiliation/Tradition: Yazdanism Admit Date: 06/22/2021 Referrals: Referral From: Spray Ii Painter Automatic Clipper Referral To: Spray Ii Painter Automatic Clipper Contact Information: [id number] Spiritual Care Assessment Spouse/Significant Other Name/Relationship: None present Assessed Need for Visit: Change in Health Status Patient Description: Grateful Spiritual/Cultural/Social Issues Assessment: Asst. Automatic Clipper visited patient in follow up to previous Asst. Automatic Clipper visit. Patient was seated in the recliner. He commented that he is receiving excellent care; that this is a good hospital. He repeatedly spoke of his extubation; something he does not want to experience again. He was grateful for the visit from the who spoke of services that coul d be helpful. As I mentioned his Yazdanism olive, he again wanted to speak about h is extubation. Additional staff came into the room, so I offered a quick prayer and closed the visit. Spiritual Care remains available. Spiritual Care Intervention: Supportive Listening Spiritual Outcomes - Patient: Expressed feelings, Smock heard, valued, affirmed Spiritual Outcomes - Family: Not available for assessment Spiritual Care Plan Goals of Care: Automatic Clipper will monitor and/or provide for ongoing identified spiri tual needs as they emerge throughout the hospitalization. Outcome: unchanged Spiritual Care Follow Up Patient Follow-up Plan: Routine visit Family Follow-up Plan: No contact made at this time * Jes Faulkner RN - 06/23/2021 9:29 PM EDT 2100 - pt lost IV access, writer technical publications attempted to gain other access but was unsucces sful. IV Keppra unable to be administered. Jan Diana MD notified about no I V access, agreed access is not needed due to stability of patient and acute stat us. ordered oral keppra instead of IV. Pt has good oral intake, okay to dc N S per . * Maureen Witt RN - 06/23/2021 5:49 PM EDT Images from the original note were not included. If wound was present on admission, this documentation was sent to attending prov ider for cosignature. * Eddi Parry MD - 06/23/2021 4:59 PM EDT Brief Neurosurgery Progress Note Exam after extubation General Appearance: NAD Mental status: awake, alert and oriented to person place and time Language: Fluent Cranial Nerves: PERRL, EOMI, FS, TML Strength: Elevates BUE no drift, Wiggles toes BLE Sensation: Sensation grossly intact in all extremities Cerebellar: No dysmetria on FTN Neurosurgery will sign off. Patient can follow up in [address] Carlyn Parry M.D Neurosurgery PGY2 06/23/21 4:59 PM * Guevara Dias NP - 06/23/2021 4:57 PM EDT Assessed patient at bedside post extubation. CT c-spine without evidence of inju ry. Patient able to turn head side to side and flex/extend without pain on midli ne palpation. Cervical collar dc'ed. Will continue to monitor. * Pierce Man MD - 06/23/2021 4:37 PM EDT Brief Neurosurgery Progress Note Current Exam after Extubation: General Appearance: NAD Mental status: awake, alert and oriented to person place and time Language: Fluent Cranial Nerves: PERRL, EOMI, FS, TML Strength: Elevates BUE no drift, Wiggles toes and elevates BLE no lag Sensation: Sensation grossly intact in all extremities No acute neurosurgical intervention. Neurosurgery will sign off, patient will f/ u with Dr. Alcocer in 2-3 weeks with repeat CTH. Pierce Man MD (Tony) Neurosurgery PGY-2 * Jameel Stahl DO - 06/23/2021 2:55 PM EDT Trauma Surgery Progress Note Hospital Day #: 1 INTERVAL PRESENT HISTORY: The patient was seen at bedside this morning with the trauma surgery team. Overa ll he is doing well. He has been extubated and is not in any pain. He denies fev er, chills, nausea, vomiting, chest pain, shortness of breath, abdominal pain, v isual changes, and extremity numbness and weakness. VITAL SIGNS: Vitals: 06/23/21 1200 06/23/21 1300 06/23/21 1400 06/23/21 1407 BP: 165/99 152/94 136/101 Pulse: 71 76 95 Resp: (!) 11 13 18 Temp: TempSrc: SpO2: 100% 100% 100% 100% Height: INTAKE/OUTPUT (last 3 shifts): I/O last 3 completed shifts: In: 1300 [I.V.:1100; IV Piggyback:200] Out: 2400 [Urine:2400] PHYSICAL EXAM: Gen: NAD, AAOx3 CVS: Regular rate and normal rhythm. Resp: Normal effort; patient speaking in complete sentences. Negative for strido r. GI: Soft, non-distended, non-tender. Ext: Warm and well-perfused. LABS: Recent Labs Lab 06/22/21 1114 06/22/21 1859 06/23/21 0828 WBC 11.5* 9.1 9.7 HGB 14.9 13.9 14.8 HCT 45.8 43.5 46.7 PLT 137* 133* 118* NEUTOPHILPCT 89 -- -- Recent Labs Lab 06/22/21 1114 06/23/21 0828 NA 141 146* K 4.5 3.9 CL 103 113* BICARBONATE 15* 21* BUN 5* 6 CREATININE 1.07 1.19 GLUCOSE 135 143* CALCIUM 8.2* 8.4* Recent Labs Lab 06/22/21 1114 INR Clotted, Unit Notified MEDICATIONS: Scheduled Meds: amitriptyline 25 mg Oral Nightly ezetimibe 10 mg Oral Nightly folic acid 1 mg Per G Tube Daily levETIRAcetam 500 mg Intravenous BID metoprolol tartrate 25 mg Oral BID vitamin B-1 100 mg Oral Daily Continuous Infusions: dexmedetomidine Stopped (06/23/21 1159) sodium chloride 100 mL/hr at 06/23/21 1041 PRN Meds:.acetaminophen (TYLENOL) tablet, labetalol Assessment: Tuan Verdugo is a 55 y.o. male with a PMHx significant for seizure disorder, Hx of decompressed craniectomy (06/16/2020) for an acute right SDH, s/p craniopla sty (06/26/2020) and VSP placement (08/04/2020) for post-traumatic hydrocephalus w дмитрий presented as a leveled trauma after a witnessed fall from a couch and CT-Head at an outside hospital revealed chronic B/L SDH. He was intubated for at the [facility] and was then transferred to [facility] for further management. Trauma work-up and imaging did not reveal any evidence of acute injury. Today on examination, he is extubated with a GCS of 15. A tertiary survey did no t reveal any evidence of new injuries and the patient has no new complaints at t his time. From a a trauma surgery perspective, there are no indications for oper ative treatment. Trauma surgery will sign-off and the remainder of his care will be per his primary team. Past Medical History: Diagnosis Date Alcohol abuse Coronary arteriosclerosis 01/10/2012 Coronary artery disease Essential hypertension Head trauma Hyperlipidemia Hypertension Leg pain Lower back pain Obstructive sleep apnea syndrome 01/01/2013 Old myocardial infarction 01/10/2012 Premature beats 01/28/2017 Pulmonary fibrosis Pure hypercholesterolemia 01/10/2012 Sarcoidosis of lung Seizure disorder Seizures Stroke Principal Problem: Status epilepticus Active Problems: Pulmonary fibrosis Alcohol abuse Essential hypertension Acute respiratory failure Oropharyngeal dysphagia Impaired mobility and activities of daily living 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 Localization-related epilepsy Communicating hydrocephalus Acute encephalopathy Chronic subdural hematoma Midline shift of brain Plan: -- There is no evidence of acute injury on trauma work-up and imaging, and there are no indications for acute operative management by the trauma surgery team. T rauma surgery will sign-off and the remainder of the patient's care will be per the primary service. Patient seen and discussed with attending Dr. Favio Carranza MD PGY-1 | Department of Surgery 06/23/2021 2:55 PM I saw and evaluated the patient. Discussed with the resident and agree with the residents findings and plans as written, along with any supplemental dictated a nd/or attending documentation in the patient record by myself. The patient is s table from the perspective of the non-neurologic issue of seizures. The patient is not sure if he took his meds prior to seizing yesterday. * Tremaine Maida Charisma RN - 06/23/2021 2:14 PM EDT Case Management Screen & Assessment Patient Name: Tuan Verdugo Gender: male Date of : 1965 Admission Dx: Status epilepticus [G40.901] Age: 55 y.o. Admission: 06/22/2021 10:45 AM Attending Provider: Radha Tiwari MD High Risk Criteria - Prior to Admission/Upon Arrival TEXTILE DYER-Type of Residence: Private Residence TEXTILE DYER- Home Care Services: No Limited Home Supports/Lives Alone?: No Multi trauma/Critical care/Step down admit?: Yes Head/Spinal cord injury?: Yes Self Pay: No Multiple ED visits?: No Related/Unplanned readmission within 30 days?: Yes Complex/New medical issues: status epilepticus Relevant comorbidities: L Hemiparesis, acute SDH-craniectomy and VPS placement 2 020; GT, Etoh abuse, HTN, SHELLEY, Sz, Sarcoidosis Screening Outcome Social Work Consult Needed?: Yes No Social Work Consult Order Exists: Place Order Further Case Management Needs?: Case Management Needs Chart Review PCP Verified?: Patient has PCP Prior to Admission: Functional/Environmental Assessment Bathing: Independent Dressing: Independent Toileting: Independent Medication administration: Independent Transfers: Independent Ambulation: Independent Meal preparation: Independent Number of stairs into home: 3 Number of stairs to bathroom: 0 Number of stairs to bedroom: 5 Durable Medical Equipment (DME): Walker, Cane Prior to Admission: Support Services Transportation (Name & Phone): [place] Case Management Re-Review Case Management Re-Review Needed?: Yes Case Management Re-Review Date: 06/24/21 Discharge Planning Does the patient need discharge transport arranged?: Yes ED CM Note: Pt presented to the ED with status epilepticu. CM attempted unsuccessfully sever al times to contact the patient's , Selma Verdugo, in order to introduce t he CM role and discuss d/c planning. The patient is currently vented on FiO2 30% and unable to be interviewed. The patient was recently admitted to [facility] so t his CM reviewed the patient chart and previous CM notes. The patient is 100% ser vice connected with the [place] and utilizes the [place] transportation benefits. The dona ent lives at home with his spouse and is iPTA. Therapy recommendations will be a ppreciated when patient is medically ready to participate. Patient is admitted t o NeuroICU service. Unit CM to continue to follow. Maida Penaloza * Janie Escudero RRT - 06/23/2021 2:08 PM EDT Patient has a Positive cuff leak. Patient was successfully extubated to room air . No stridor noted at this time. Patient able to phonate. Patient has a stro ng cough. * Dev Kendrick MD - 06/23/2021 8:50 AM EDT [facility] [place] [address] PATIENT NAME: Tuan Verdugo, DATE OF : 1965 . Neurocritical Care Progress Note: Date of Encounter: 06/23/2021 Length of stay: 1 Tuan Verdugo is a 55 y.o. male patient with: Principal Problem: Status epilepticus Mr. Verdugo is critically Ill due to the following: RN CORRECTIONAL failure due to seizure Subjective: Overnight failed spont trial, did not initiate breath and backup kicked in. Current Medications: Reviewed. amitriptyline 25 mg Oral Nightly ezetimibe 10 mg Oral Nightly folic acid 1 mg Per G Tube Daily levETIRAcetam 500 mg Intravenous BID vitamin B-1 100 mg Oral Daily Intake/Output last 3 shifts: I/O last 3 completed shifts: In: 1300 [I.V.:1100; IV Piggyback:200] Out: 2400 [Urine:2400] General Exam: Temp: [36.3 C (97.3 F)-37.1 C (98.8 F)] 36.3 C (97.3 F) Pulse: [58-126] 61 Resp: [12-16] 12 BP: (94-169)/(78-104) 163/103 FiO2: [30 %-60 %] 30 % SpO2: [98 %-100 %] 100 % O2 Therapy: Oxygen General appearance - in no apparent distress Skin - Normal HEENT - Head: Normocephalic, no lesions, without obvious abnormality. Cardiovascular - regular rate Respiratory - intubated, symmetric chest rise Gastrointestinal - soft, nontender Extremities - extremities normal, atraumatic, no cyanosis or edema Neurologic: Mental status - alert and oriented x 3 Language - intubated Cranial nerves -Extraocular movements full, normal and symmetrical facial streng th Sensation - intact to light touch Strength - wiggles toes b/l, squeezes fingers b/l Cerebellar - deferred Gait =deferred Neglect = absent Data Review: CBC: Recent Labs Lab 06/22/21 1114 06/22/21 1859 WBC 11.5* 9.1 RBC 5.65 5.39 HGB 14.9 13.9 HCT 45.8 43.5 PLT 137* 133* NEUTOPHILPCT 89 -- MONOPCT 6 -- BMP: Recent Labs Lab 06/22/21 1114 NA 141 K 4.5 CL 103 BICARBONATE 15* GLUCOSE 135 BUN 5* CREATININE 1.07 BCR 5 GFRAA 87 GFRNONAA 75 Imaging: Shunt series: "IMPRESSION: Questionable twist/kink of the MARKET RESEARCH MANAGER shunt tubing in the right hemipelvis at the le destin of the second sacral segment on the right (appreciated only on the frontal p rojection), which is poorly assessed on the crosstable lateral images. It is imp ortant to note that this distal segment of the tube does have a different appear ance than the prior study." "FINDINGS/IMPRESSION: The endotracheal tube approaches the right mainstem bronchus as communicated pre viously to Dr. Phelan at 11:59 AM. For appropriate positioning it needs to be re tracted at least by 2 cm. The enteric tube is partially visualized traversing below the diaphragm. The tip is out of view of current radiograph A MARKET RESEARCH MANAGER shunt is partially visualized traversing over the left side of the thorax. Visualized segment of MARKET RESEARCH MANAGER shunt in thorax do not show discontinuity or breakage Again noted are bilateral airspace opacities in both upper and mid lungs, bilate ral small pleural effusions with underlying atelectasis or consolidation. Cardiomediastinal silhouette remains stable. There is no pneumothorax." "IMPRESSION: Left ventriculostomy catheter access with tunneled MARKET RESEARCH MANAGER shunt tubing in the left scalp and neck soft tissues without evidence of obstruction. " MEDICAL DECISION MAKING: Neuro: Events last 24 hours - None Neuro problem list Seizures with concern for status epilepticus, resolved Received 2g keppra loading dose at OSH Resume home dose 500mg keppra BID Routine EEG without seizures or epileptiform activity Appreciate neurosurgery recs Thiamine and folate for alcohol use Keppra level 13 Precedex at .7, wean off for extubation Continue Elavil 25 Cardio: Events last 24 hours - None Vasoactive drips - None Cardio problem list SBP<160 PRN labetalol Pulmo: Events last 24 hours - None Pulmo problem list Vent to CPAP/spont trial, with plan for extubation today Patient reliably following commands for extubation GI: Events last 24 hours - None GI problem list Nutrition: NPO Last bowel movement: TEXTILE DYER Pending swallow eval post extubation ID: Temp (24hrs), Av.7 C (98.1 F), Min:36.3 C (97.3 F), Max:37.1 C (98.8 F) Events last 24 hours - None Cultures: none Active infection: none Antibiotics:none Endo: Events last 24 hours - None Endocrine problem list Sugar controlled. Maintain euglycemia Renal: Events last 24 hours - None Renal problem list IVF at 100 pending diet Continue with Input/Output monitoring. Maintain euvolemia. Heme: Events last 24 hours - None Hematology problem list Therapeutic anticoagulations: none No need for transfusion. Social: Will update family Prophylaxis: DVT Prophylaxis: SCD GI Prophylaxis: not needed Seizure Prophylaxis: Keppra Code Status: Full code Actions: Extubate Yes Discontinue arterial line NA Discontinue Central line NA Discontinue horner NA Discontinue antibioticNA Discussed with: Dr. Tiwari and neurocritical care team Associated attestation - Radha Tiwari MD - 06/23/2021 10:52 PM EDT N-ICU ATTENDING ADDENDUM: Date of Encounter: 06/23/2021 I personally saw and examined the patient, discussed the case and formulated ass essment and plan with the resident and agree with the history, exam, assessment and plan outlined in the resident's note except where stated in the supplemental documentation by myself. Signature: Radha Tiwari * Tom Jerome MD - 06/23/2021 6:50 AM EDT Images from the original [place] [address] PATIENT NAME: Tuan Verdugo, DATE OF : 1965 . Subjective Date of Encounter: 06/23/2021 Length of stay: 1 days Interval History: no acute events Current Hospital Problem List: Principal Problem: Status epilepticus Objective Vitals Temp: [36.3 C (97.3 F)-37.1 C (98.8 F)] 36.3 C (97.3 F) Pulse: [58-126] 62 Resp: [14-16] 14 BP: (94-168)/(78-104) 151/102 FiO2: [30 %-60 %] 30 % SpO2: [98 %-100 %] 100 % O2 Therapy: Oxygen Intake/Output Last 3 Completed Shifts I/O last 3 completed shifts: In: 1100 [I.V.:1100] Out: 1800 [Urine:1800] Physical Exam Gen: intubated, on precedex Opens eyes to voice and maintains PERRL FS Nods appropriately to orientation questions Airport Attendant hands BUE Wiggles toes BLE Data Review CBC: Recent Labs Lab 06/22/21 1114 06/22/21 1859 WBC 11.5* 9.1 RBC 5.65 5.39 HGB 14.9 13.9 HCT 45.8 43.5 PLT 137* 133* NEUTOPHILPCT 89 -- MONOPCT 6 -- BMP: Recent Labs Lab 06/22/21 1114 NA 141 K 4.5 CL 103 BICARBONATE 15* GLUCOSE 135 BUN 5* CREATININE 1.07 BCR 5 GFRAA 87 GFRNONAA 75 COAGS: Recent Labs Lab 06/22/21 1114 INR Clotted, Unit Notified Assessment/Plan Tuan Verdugo is a 55 y.o. male patient with PMHx seizure disorder, sarcoidosi s, hx decompressive craniectomy 06/16/2020 for R acute SDH s/p cranioplasty 2019 and Certas VPS placement on 08/04/2020 for post-traumatic hydrocephalus comi ng in with seizures Neuro: Exam stable Shunt series intact Wean to extubate per primary team Seizure/AED management per neurology Will follow for exam when extubated, no acute intervention indicated at this [facility] Neurosurgery Resident, PGY-3 Associated attestation - Andrei Alcocer MD - 06/23/2021 3:55 PM EDT I personally evaluated the patient on 06/23/2021. I reviewed and discussed the hi story, exam findings, relevant laboratory and imaging data, assessment and plan with the resident physician. I agree with the findings and plans described, exce pt/unless as listed below or other supplemental documentation. * Pierce Man MD - 06/22/2021 1:00 PM EDT Brief Neurosurgery Progress Note Current Exam: General Appearance: NAD Mental status: eyes open to voice and maintain, at time spontaneously open; rega rds, follows commands Language: intubated Cranial Nerves: PERRL, EOM grossly intact (tracks examiner), face grossly symmet brenda Strength: shows 2 fingers BUE to command, elevates BLE to command Pierce (Anthony) MD [facility] Neurosurgery PGY-2 * Janie Escudero, INSURANCE BILLER - 06/22/2021 12:26 PM EDT Respiratory transported the patient within the hospital . The patient originate d from the ED, was transported to [facility] and was then brought back to the ED. The patient transport took a total time of 30 minutes. The patient was transported without incident. * Redd Jacobson RT - 06/22/2021 11:59 AM EDT Respiratory transported the patient within the hospital . The patient originate d from [facility] ED and was transported to CT scan and then returned to ED. The patie nt transport took a total time of 15 minutes. The patient was transported witho ut incident. * Redd Jacobson RT - 06/22/2021 11:56 AM EDT Respiratory Therapy Emergency Department Note Therapist was called by unit therapist to receive incoming intubated patient. Curtis velasquez arrived intubated and was transferred to transport ventilator at approp riate settings. Therapist assisted with airway management until time to transpor t patient to CT scan. Therapist spent 20 minutes providing therapy in ED. * Jose Sarah - 06/22/2021 10:30 AM EDTSummary: provided staff support Spiritual Care Progress Note Automatic Clipper: Cole Sarah Spray Ii Painter Automatic Clipper/Roni Dc Patient Name: Tuan Verdugo Age: 55 y.o. Sex: male Room/Bed: 5/5 Olive Affiliation/Tradition: unknown Admit Date: 06/22/2021 Referrals: Referral From: Trauma Team Referral To: Spray Ii Painter Automatic Clipper Contact Information: [phone] guadalupe Spiritual Care Assessment Spouse/Significant Other Name/Relationship: No family was contacted at this monster e. Assessed Need for Visit: Trauma Patient Description: Unresponsive Spiritual/Cultural/Social Issues Assessment: Responded to a trauma page at 10:3 0 for Tuan. He had just arrived from [facility] and was sedated. Staff were asse ssing his condition. A follow-up will be made at a later time. Spiritual Care Intervention: Provide [facility], Staff Support Spiritual Outcomes - Patient: Not available for assessment Spiritual Outcomes - Family: Not available for assessment Spiritual Care Plan Goals of Care: To assess spiritual care needs and hopes and mobilize spiritual r esources for patients/families/caregivers that support/enhance quality of life r elated to hospitalization. Outcome: unchanged Spiritual Care Follow Up Patient Follow-up Plan: Still needs assessing Family Follow-up Plan: No contact made at this time documented in this encounter H&P Notes * Ed Hurtado MD - 06/22/2021 1:33 PM EDT [facility] [place] [address] PATIENT NAME: Tuan Verdugo, DATE OF : 1965 . Primary Care Physician: James Zuniga DO NEURO-CRITICAL H&P NOTE CHIEF COMPLAINT: Seizure cluster/status epilepticus HPI: Tuan Verdugo is a 55 y.o. 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 History was obtained from patient's spouse Selma Verdugo over telephone [ ]. Per Selma, patient was drinking heavily yesterday, 7-8 drinks of hard liquor, an d this morning around 7:30 AM he started having his typical seizure episodes whi ch she described as generalized stiffening of all 4 extremities, eyes rolling in to back of his head and non-responsive to verbal or physical stimuli. Per Selma, each episode was 5-7 minutes long and he did not return back to his baseline be tween episodes. He then had 1-2 more episodes at [facility], although description of these is not currently available. He was intubated at [facility] and placed on propofol, given [address] head was done which showed improv ement of his SDH, especially left SDH and midline shift compared to previous CT head done 05/09. His ABG at [facility] showed pH of 6.89, PCO2 33, PO2 389, HCO3 6. He also had leukocytosis of 16.3 and CK of 428. He was transferred to [facility] or further evaluation. On my assessment in the ED, patient was off sedation, awake, intubated, moving a ll 4 extremities purposefully, able to follow commands. Ethyl alcohol level was negative. Of note, patient was recently hospitalized and discharged from [facility] 05/10 after a similar presentation of seizure clusters in the setting of alcohol withdrawal. Review of Systems Unable to obtain as patient is intubated. Past Medical History Past Medical History: Diagnosis Date Alcohol abuse Coronary arteriosclerosis 01/10/2012 Coronary artery disease Essential hypertension Head trauma Hyperlipidemia Hypertension Leg pain Lower back pain Obstructive sleep apnea syndrome 01/01/2013 Old myocardial infarction 01/10/2012 Premature beats 01/28/2017 Pulmonary fibrosis Pure hypercholesterolemia 01/10/2012 Sarcoidosis of lung Seizure disorder Seizures Stroke Past Surgical History Past Surgical History: Procedure Laterality Date CORONARY ANGIOPLASTY WITH STENT PLACEMENT CRANIOTOMY removal blood clots Family History Family History Problem Relation Age of Onset Early Sister Early Brother Stroke Brother Alcohol abuse Other Drug abuse Other Social History reports that he has quit smoking. He has never used smokeless tobacco. He repor ts current alcohol use. He reports that he does not use drugs. The patient currently lives with his spouse. His baseline functional status is p oor and he is unable to performing ADLS. (He/She) is not a smoker. Current Medications No current facility-administered medications on file prior to encounter. Current Outpatient Medications on File Prior to Encounter Medication Sig Dispense Refill acetaminophen (TYLENOL) 500 MG tablet Take by mouth every 4 (four) hours as needed for Pain2 TABS Amitriptyline HCl 25 MG Oral Tablet (ELAVIL) Take 25 mg by mouth nightly Artificial Tears 0.5-0.6 % Ophthalmic Solution (Polyvinyl Alcohol-Povidon e) Place 1 drop into both eyes Four times daily Ezetimibe 10 MG Oral Tablet (ZETIA) Take 1 tablet by mouth nightly 30 tab let 11 Folic Acid 1 MG Oral Tablet (FOLVITE) 1 tablet by Per G Tube route daily (Patient not taking: Reported on 02/26/2021) 30 tablet 1 Hypromellose 2.5 % Ophthalmic Solution (GONIOSOL) Place 1 drop into both eyes Three times daily 15 mL 12 levETIRAcetam 500 MG Oral Tablet (KEPPRA) Take 1 tablet by mouth Two Time s Daily 60 tablet 11 Vitamin B-1 100 MG Oral Tablet Take 100 mg by mouth daily Allergies Patient has no known allergies. Physical Examination Temp: [37.1 C (98.8 F)] 37.1 C (98.8 F) Pulse: [123-126] 123 Resp: [14] 14 BP: (124-136)/(95-104) 136/104 FiO2: [30 %-60 %] 30 % SpO2: [99 %-100 %] 100 % O2 Therapy: Oxygen General Exam: General appearance - alert and cooperative, intubated off sedation Skin - No cyanosis or pallor HEENT - Head: Normal, normocephalic, atraumatic. Cardiovascular - sinus tachycardia Respiratory - crackles in lower lung moore bilaterally Gastrointestinal - Bowel sounds present and Abdomen soft, non-tender Extremities - extremities normal, atraumatic, no cyanosis or edema Neurologic: Mental status - awake, alert, follows commands in midline and in all 4 extremiti es Language - Able to follow 3-step commands crossing midline, intubated Cranial nerves -PERRL, VFF to confrontation, EOMI, face appears symmetric Sensation - Intact to noxious in all 4 extremities Strength - Able to lift all 4 extremities antigravity, R > L Cerebellar - No tremors noted Gait = Deferred as patient is intubated Neglect = Absent Glascow Coma Scale: 11T (E4, V1, M6) Eye Response Spontaneous eye opening 4 points Opens to verbal command, speech, or shout 3 points Opens to pain, not applied to face 2 points No eye opening 1 point Verbal Response Alert and oriented 5 points Confused conversation, but able to answer questions 4 points Inappropriate responses, jumbled phrases, but discernible words 3 points Incomprehensible speech 2 points No sounds 1 point Motor Response Obeys commands for movement fully 6 points Localizes to noxious stimuli 5 points Withdraws from noxious stimuli 4 points Abnormal flexion, decorticate posturing 3 points Extensor response, decerebrate posturing 2 points No response 1 point Data Review: CBC: Recent Labs Lab 06/22/21 1114 WBC 11.5* RBC 5.65 HGB 14.9 HCT 45.8 PLT PENDING NEUTOPHILPCT 89 MONOPCT 6 BMP: Recent Labs Lab 06/22/21 1114 NA 141 K 4.5 CL 103 BICARBONATE 15* GLUCOSE 135 BUN 5* CREATININE 1.07 BCR 5 GFRAA 87 GFRNONAA 75 Imaging: CT Cervical Spine without Contrast Result Date: 06/22/2021 IMPRESSION: No acute displaced vertebral body fracture or traumatic listhesis. S table degenerative changes as discussed above. XR Chest Frontal Only Result Date: 06/22/2021 IMPRESSION: 1. Endotracheal tube with tip terminating approximately 1 cm above the magaly, recommend retraction by additional 2 to 3 cm for proper positioning. 2. Redemonstration of bilateral upper basilar lung scarring/atelectasis with s mall bilateral pleural effusions. Findings were discussed over phone with Dr. Betina loaiza by Dr. Harris on 06/22/2021 at 11:59 AM. XR Chest Frontal and Lateral Result Date: 06/22/2021 FINDINGS/IMPRESSION: The endotracheal tube approaches the right mainstem bronchu s as communicated previously to Dr. Phelan at 11:59 AM. For appropriate position ing it needs to be retracted at least by 2 cm. The enteric tube is partially vis ualized traversing below the diaphragm. The tip is out of view of current radiog raph A MARKET RESEARCH MANAGER shunt is partially visualized traversing over the left side of the tho rax. Visualized segment of MARKET RESEARCH MANAGER shunt in thorax do not show discontinuity or break age Again noted are bilateral airspace opacities in both upper and mid lungs, bi lateral small pleural effusions with underlying atelectasis or consolidation. Ca rdiomediastinal silhouette remains stable. There is no pneumothorax. XR Pelvis 1-2 Views Result Date: 06/22/2021 IMPRESSION: No acute fracture or hip joint dislocation. Degenerative changes as above. XR Abdomen AP Supine and Lateral View Result Date: 06/22/2021 IMPRESSION: Questionable twist/kink of the MARKET RESEARCH MANAGER shunt tubing in the right hemipelv is at the level of the second sacral segment on the right (appreciated only on t he frontal projection), which is poorly assessed on the crosstable lateral image s. It is important to note that this distal segment of the tube does have a diff erent appearance than the prior study. A noncontrast CT of the Pelvis (only) may be of additional clinical utility. Assessment/Plan: Tuan Verdugo is a 55 y.o. male with history of TBI, chronic bilateral SDH, lo calization related epilepsy on Keppra 500 bid at home, hydrocephalus s/p MARKET RESEARCH MANAGER shun t, alcohol abuse, and pulmonary fibrosis who presents to [facility] ED today as a t ransfer from [facility] for evaluation of seizure cluster. Neuro: Seizure cluster with suspected status epilepticus, now resolved -s/p LEV 2000 mg at [facility], on 500 mg bid at home, reported compliance per sp ouse -Will continue levetiracetam 500 mg bid IV for now and check trough level of LEV tonight -Seizure precautions -Will obtain Routine EEG Chronic bilateral SDH with hydrocephalus s/p MARKET RESEARCH MANAGER shunt -CT head from [facility] reviewed and shows overall improvement in left SDH and m idline shift compared to previous CT head from 05/09 -Neurosurgery consulted in the ED, recommend no acute intervention currently Alcohol Abuse -CIWA protocol to monitor for withdrawal -Continue home thiamine and folate Cardio: Telemetry monitoring Keep SBP<160 PRN labetalol for SBP >160 Pulmo: Acute hypoxic respiratory failure requiring mechanical ventilation Intubated, now off sedation and on SPONT Will get repeat ABG Will consider Precedex as needed for sedation and weaning to extubate when possi ble GI: Will keep NPO for now MIVF now with NS @100/hr Swallowing evaluation when possible. Renal: Continue MIVF Continue with Input/Output monitoring. Maintain euvolemia. Will obtain repeat ABG and CK ID: Afebrile, leukocytosis appears reactive in setting of recent seizure cluster and trending down CXR with chronic appearing bilateral infiltrates/pleural effusions Influenza, RSV, and COVID PCR negative at [facility] Will continue to monitor for clinical signs of infection DVT ppx: SCD's GI ppx: Not indicated Code status: Full Code The care of this patient was discussed with my attending Dr. Radha Tiwari MD a nd the plan was formulated together. Ed Hurtado MD Neurology Resident, PGY-4 06/22/2021 Associated attestation - Radha Tiwari MD - 06/23/2021 2:39 PM EDT N-ICU ATTENDING ADDENDUM: Date of Encounter: 06/23/2021 I personally saw and examined the patient, discussed the case and formulated ass essment and plan with the resident and agree with the history, exam, assessment and plan outlined in the resident's note except where stated in the supplemental documentation by myself. Critical Care Services Total Critical Care Time: 1 hour Critical care was necessary to treat or prevent imminent or life-threatening det erioration of the following conditions: RN CORRECTIONAL failure or compromise, respiratory f ailure, and status epilepticus. Critical care time was time spent personally, by me, exclusive of any separately billable procedures, on the following activities: development of treatment plan with patient or surrogate, evaluation of patient's response to treatment, exami nation of patient, obtaining history from patient or surrogate, ordering and per forming treatments and interventions, ordering and review of imaging studies, or dering and review of laboratory studies, pulse oximetry, re-evaluation of patien t's condition, review of old charts, and ventilator management. Overnight events: admitted o/n with SE in the context of alcohol abuse, probably withdrawal after heavy drinking. Intubated at OSH, remained intubated here cristine use of apnea, although now able to follow commands; intermittently agitated o/n, requiring Precedex. EEG yesterday without epileptiform discharges. Exam after pausing Precedex: Lethargic, opens eyes with stim, follows commands x4 extremities. Medical decision making: Principal Problem: Status epilepticus - resolved. Resume home LEV Active Problems: Acute respiratory failure d/t RN CORRECTIONAL compromise and inability to maintain open ai rway - tolerating CPAP today, extubated this afternoon. Chronic subdural hematoma, L>R, with brain compression and Midline shift of brain; Communicating hydrocephalus, 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 - CTH at OSH with improvement in L SDH, ventricle and MLS size. NSx consulted - no acute intervention. Pulmonary fibrosis - CXR at baseline. Alcohol abuse - watch for withdrawal. Cont thiamine, folate, MVI. Essential hypertension - BP high, resume home metoprolol. Oropharyngeal dysphagia - swallow eval post extubation Impaired mobility and activities of daily living - PT/OT Acute encephalopathy - multifactorial (post ictal, sedation, possible alcohol withdrawal) - cont supportive care, targeted management as above. Discussed with: patient, ICU staff, and residents Signature: Radha Tiwari * Jameel Stahl, - 06/22/2021 10:48 AM EDT Images from the original note were not included. Initial Patient Evaluation Trauma Category: Level II Mode of Arrival: Air Team Attending: Dr. Jameel Stahl Sr. Resident: Dr. Markos Dumont Jr. Resident: Dr. Loyda Rico ED Attending: Dr. Jameel Brannon ED Airway resident: Dr. Hattie Phelan History Pre-Hospital: Mechanism of Injury: fall from couch secondary to seizure Treatment: Intubated at OSH, 2g Keppra, 2.5mg versed, 50mcg Fentanyl, 1L bolus, Levophed gtt en route Clinical Course: 20g R foot, 20g LUE, horner catheter Loss of Consciousness: yes Hospital: Tuan Verdugo is a 55 y.o. male with past medical history of TBI, seizure diso rder, chronic SDH, and MARKET RESEARCH MANAGER shunt placement who presents as a Level II trauma foll owing 4 witnessed seizures at home, one where he fell from the couch and hit his head. He was with altered mental status and brought to [facility] where he was intubated and given 2g Keppra. OSH trauma scanning concerning for new SDH and patient was transferred to [facility] for higher level of care. En route, patient provided with Versed 2.5mg and Fentanyl 50mcg for sedation. Following, p atient with single episode of hypotension with SBP 80s which was treated with a 1L bolus fluids and a Levophed gtt en route. Reported GCS 3, L pupil 2mm reacti ve, R pupil 1mm nonreactive. Upon arrival, patient GCS 3, pupils 2mm round reactive. Levophed successfully w eaned off. C-collar applied. CXR done to evaluate ETT placement and Pelvic XR ob tained, patient brought to scan for cervical spine imaging. Review of Systems Review of Systems Unable to perform ROS: Intubated TQIP Pre-Existing Conditions: PADMINI d/t patient condition Past Medical History: Past Medical History: Diagnosis Date Alcohol abuse Coronary arteriosclerosis 01/10/2012 Coronary artery disease Essential hypertension Head trauma Hyperlipidemia Hypertension Leg pain Lower back pain Obstructive sleep apnea syndrome 01/01/2013 Old myocardial infarction 01/10/2012 Premature beats 01/28/2017 Pulmonary fibrosis Pure hypercholesterolemia 01/10/2012 Sarcoidosis of lung Seizure disorder Seizures Stroke Past Surgical History: Past Surgical History: Procedure Laterality Date CORONARY ANGIOPLASTY WITH STENT PLACEMENT CRANIOTOMY removal blood clots Medications: PADMINI d/t patient condition Allergies: No Known Allergies Family History: Family History Problem Relation Age of Onset Early Sister Early Brother Stroke Brother Alcohol abuse Other Drug abuse Other Social History: Social History Tobacco Use Smoking status: Former Smoker Smokeless tobacco: Never Used Vaping Use Vaping Use: Former Substance Use Topics Alcohol use: Yes Comment: quit 10 yrs ago Drug use: No Primary Survey BP: 124/95 HR: 126 RR: 14 SpO2: 100 EtCO2: 37 FiO2: 60% Airway: Intubated Breathing: Bilateral breath sounds Circulation: + pulses Pulses: + Ped, + Rad, + Fem, + Capillary Refill, + Carotid Disability: Eye (4): 1, Verbal (5): 1 Motor (6): 1, GCS (15): 3 Secondary Survey Physical Exam Constitutional: Appearance: He is not ill-appearing, toxic-appearing or diaphoretic. Comments: Intubated and sedated HENT: Head: Normocephalic and atraumatic. Comments: Palpable left MARKET RESEARCH MANAGER shunt Right Ear: External ear normal. Left Ear: External ear normal. Nose: Nose normal. Mouth/Throat: Pharynx: Oropharynx is clear. Comments: 8.0 ETT tube secure at 24cm at the lip Eyes: Pupils: Pupils are equal, round, and reactive to light. Neck: Comments: Cervical collar applied Cardiovascular: Rate and Rhythm: Tachycardia present. Pulses: Normal pulses. Pulmonary: Effort: Pulmonary effort is normal. No respiratory distress. Breath sounds: Normal breath sounds. Abdominal: General: Abdomen is flat. There is no distension. Palpations: Abdomen is soft. Comments: LUQ surgical scar Musculoskeletal: General: No swelling or deformity. Skin: General: Skin is warm and dry. Findings: No bruising. Comments: Lower lip abrasion. Neurological: Comments: + gag Psychiatric: Comments: PADMINI Pupils: Left 2, reactive Right 2, reactive Extremity: LUE: Movement PADMINI, Sensation PADMINI RUE: Movement PADMINI, Sensation PADMINI LLE: Movement PADMINI, Sensation PADMINI RLE: Movement PADMINI, Sensation PADMINI Imaging CT Cervical Spine without Contrast Result Date: 06/22/2021 IMPRESSION: No acute displaced vertebral body fracture or traumatic listhesis. S table degenerative changes as discussed above. XR Chest Frontal Only Result Date: 06/22/2021 IMPRESSION: 1. Endotracheal tube with tip terminating approximately 1 cm above the magaly, recommend retraction by additional 2 to 3 cm for proper positioning. 2. Redemonstration of bilateral upper basilar lung scarring/atelectasis with s mall bilateral pleural effusions. Findings were discussed over phone with Dr. Betina loaiza by Dr. Harris on 06/22/2021 at 11:59 AM. XR Chest Frontal and Lateral Result Date: 06/22/2021 FINDINGS/IMPRESSION: The endotracheal tube approaches the right mainstem bronchu s as communicated previously to Dr. Phelan at 11:59 AM. For appropriate position ing it needs to be retracted at least by 2 cm. The enteric tube is partially vis ualized traversing below the diaphragm. The tip is out of view of current radiog raph A MARKET RESEARCH MANAGER shunt is partially visualized traversing over the left side of the tho rax. Visualized segment of MARKET RESEARCH MANAGER shunt in thorax do not show discontinuity or break age Again noted are bilateral airspace opacities in both upper and mid lungs, bi lateral small pleural effusions with underlying atelectasis or consolidation. Ca rdiomediastinal silhouette remains stable. There is no pneumothorax. XR Pelvis 1-2 Views Result Date: 06/22/2021 IMPRESSION: No acute fracture or hip joint dislocation. Degenerative changes as above. XR Abdomen AP Supine and Lateral View Result Date: 06/22/2021 IMPRESSION: Questionable twist/kink of the MARKET RESEARCH MANAGER shunt tubing in the right hemipelv is at the level of the second sacral segment on the right (appreciated only on t he frontal projection), which is poorly assessed on the crosstable lateral image s. It is important to note that this distal segment of the tube does have a diff erent appearance than the prior study. A noncontrast CT of the Pelvis (only) may be of additional clinical utility. EKG: Ordered FAST: not complete Laboratory Data Lab Results Component Value Date/Time NA 141 06/22/2021 11:14 AM NA 138 05/10/2021 01:11 AM AST 40 (H) 06/22/2021 11:14 AM AST 13 03/08/2021 12:41 AM BUN 5 (L) 06/22/2021 11:14 AM BUN 5 (L) 05/10/2021 01:11 AM OSMOLALITY 291 06/22/2021 11:14 AM OSMOLALITY 283 05/10/2021 01:11 AM BCR 5 06/22/2021 11:14 AM BCR 9 05/10/2021 01:11 AM BICARBONATE 15 (L) 06/22/2021 11:14 AM BICARBONATE 23 05/10/2021 01:11 AM ALT 16 06/22/2021 11:14 AM ALT 6 03/08/2021 12:41 AM ANIONGAP 23 (H) 06/22/2021 11:14 AM ANIONGAP 12 05/10/2021 01:11 AM GFRNONAA 75 06/22/2021 11:14 AM GFRNONAA >90 05/10/2021 01:11 AM GFRAA 87 06/22/2021 11:14 AM GFRAA >90 05/10/2021 01:11 AM Lab Results Component Value Date/Time WBC 11.5 (H) 06/22/2021 11:14 AM WBC 5.6 05/10/2021 01:11 AM RBC 5.65 06/22/2021 11:14 AM RBC 5.34 05/10/2021 01:11 AM HGB 14.9 06/22/2021 11:14 AM HGB 13.7 05/10/2021 01:11 AM HCT 45.8 06/22/2021 11:14 AM HCT 43.2 05/10/2021 01:11 AM MCV 81.0 06/22/2021 11:14 AM MCV 80.9 05/10/2021 01:11 AM MCH 26.4 (L) 06/22/2021 11:14 AM MCH 25.7 (L) 05/10/2021 01:11 AM MCHC 32.6 06/22/2021 11:14 AM MCHC 31.8 (L) 05/10/2021 01:11 AM RDW 16.1 (H) 06/22/2021 11:14 AM RDW 16.3 (H) 05/10/2021 01:11 AM PLT 137 (L) 06/22/2021 11:14 AM PLT 170 05/10/2021 01:11 AM LYMPHOPCT 4 06/22/2021 11:14 AM LYMPHOPCT 13 05/10/2021 01:11 AM MONOPCT 6 06/22/2021 11:14 AM MONOPCT 6 05/10/2021 01:11 AM EOSPCT 0 06/22/2021 11:14 AM EOSPCT 4 05/10/2021 01:11 AM NEUTROABS 10.25 (H) 06/22/2021 11:14 AM NEUTROABS 4.23 05/10/2021 01:11 AM EOSABS 0.00 06/22/2021 11:14 AM EOSABS 0.21 05/10/2021 01:11 AM BASOSABS 0.08 06/22/2021 11:14 AM BASOSABS 0.11 05/10/2021 01:11 AM Lab Results Component Value Date/Time INR Clotted, Unit Notified 06/22/2021 11:14 AM INR 1.04 05/09/2021 09:41 AM No results found for: RTEG, KTEG, ANTEG, MATEG, LY30T, TEGI No results found for: AMP, LABBENZ, UCACFT, UCOCFT, METHADONE, OPI5, OXY, FNT, D GI2 No results found for: ALCOHOLURINE Lab Results Component Value Date/Time PH 7.47 (H) 06/26/2020 06:52 PM PH 7.43 06/17/2020 04:24 AM [id number] 41 (H) 06/26/2020 06:52 PM AAL8EOR 39 06/17/2020 04:24 AM PO2ART 185 (H) 06/26/2020 06:52 PM PO2ART 201 (H) 06/17/2020 04:24 AM [id number] >99 06/26/2020 06:52 PM [id number] >99 06/17/2020 04:24 AM BEART 6 06/26/2020 06:52 PM BEART 1 06/17/2020 04:24 AM TCO2 31 06/26/2020 06:52 PM TCO2 27 06/17/2020 04:24 AM FIO2 0.40 06/26/2020 06:52 PM FIO2 0.50 06/17/2020 04:24 AM Clinical Management Present on Admission: Status epilepticus Management Plan Tuan Verdugo is a 55 y.o. male with a past medical history significant for T BI, seizure disorder, chronic SDH, and MARKET RESEARCH MANAGER shunt placement who presented followin g multiple seizures with a witnessed fall from couch. OSH CTH revealing chronic bilateral SDH. Consult Neurosurgery and Neuro critical care. Tetanus Prophylaxis: No Antibiotics: No Disposition: Neuro ICU Consultants Neurosurgery I saw and evaluated the patient. Discussed with the non-physician practitioner and agree with the non-physician practitioner findings and plan as documented in their note. I was present in the ED upon patient arrival. The injuries are as noted. He appears to have slipped from the couch to the floor. There are no ac lorena injuries. He should be admitted to neurology/neurosurgery for seizure manage ment. Critical Care Time: 90 minutes documented in this encounter Procedure Notes * Bebe Brush MD - 06/22/2021 5:09 PM EDT Associated Order(s): EEG ROUTINE STUDY EEG REPORT NUMBER [id number] DATE OF PROCEDURE: 06/22/2021 HISTORY: The patient is a 55 y.o. male with a history of TBI, chronic bilateral SDH, loca lization related epilepsy on Keppra 500 bid at home, hydrocephalus s/p MARKET RESEARCH MANAGER shunt, alcohol abuse, and pulmonary fibrosis who presents to [facility] ED today as a tra nsfer from [facility] for evaluation of seizure cluster. No current facility-administered medications on file prior to encounter. Current Outpatient Medications on File Prior to Encounter Medication Sig Dispense Refill acetaminophen (TYLENOL) 500 MG tablet Take 500 mg by mouth every 4 (four) hours as needed for Pain Amitriptyline HCl 25 MG Oral Tablet (ELAVIL) Take 25 mg by mouth nightly Artificial Tear Solution (GENTEAL TEARS OP) Apply 1 drop to eye Three monster es daily Both eyes Artificial Tears 0.5-0.6 % Ophthalmic Solution (Polyvinyl Alcohol-Povidon e) Place 1 drop into both eyes Four times daily Ascorbic Acid 500 MG Oral Tablet (ASCORBIC ACID) Take 500 mg by mouth virgen ly Bisacodyl 10 MG Rectal Suppository (DULCOLAX) Place 10 mg rectally daily as needed for Constipation Ezetimibe 10 MG Oral Tablet (ZETIA) Take 1 tablet by mouth nightly 30 tab let 11 Folic Acid 1 MG Oral Tablet (FOLVITE) 1 tablet by Per G Tube route daily 30 tablet 1 Hypromellose 2.5 % Ophthalmic Solution (GONIOSOL) Place 1 drop into both eyes Three times daily 15 mL 12 levETIRAcetam 500 MG Oral Tablet (KEPPRA) Take 1 tablet by mouth Two Time s Daily 60 tablet 11 Metoprolol Tartrate 25 MG Oral Tablet (LOPRESSOR) Take 25 mg by mouth Two Times Daily Modafinil 200 MG Oral Tablet (PROVIGIL) Take 200 mg by mouth daily Nitroglycerin 0.4 MG Sublingual Tablet Sublingual (NITROSTAT) Place 0.4 m g under the tongue every 5 (five) minutes as needed for Chest pain Pantoprazole Sodium 20 MG Oral Tablet Delayed Release (PROTONIX) Take 20 mg by mouth daily predniSONE 5 MG Oral Tablet (DELTASONE) Take 5 mg by mouth daily rOPINIRole HCl 1 MG Oral Tablet (REQUIP) Take 1 mg by mouth Two Times Virgen ly Senna 8.6 MG Oral Tablet Take 1 tablet by mouth daily Tab-A-Martín/Beta Carotene Oral Tablet Take 1 tablet by mouth daily Vitamin B-1 100 MG Oral Tablet Take 100 mg by mouth daily Vitamin D (Cholecalciferol) 25 MCG (1000 UT) Oral Capsule Take 1,000 Unit s by mouth daily Scheduled Meds: amitriptyline 25 mg Oral Nightly ezetimibe 10 mg Oral Nightly [START ON 06/23/2021] folic acid 1 mg Per G Tube Daily levETIRAcetam 500 mg Intravenous BID [START ON 06/23/2021] vitamin B-1 100 mg Oral Daily Continuous Infusions: dexmedetomidine 0.7 mcg/kg/hr (06/22/21 1459) sodium chloride 100 mL/hr at 06/22/21 1357 sodium chloride TECHNICAL DESCRIPTION: This digital EEG was recorded using 2 EKG and 21 scalp and/or ear electrodes. I t was reviewed in referential and bipolar montages following reformatting in the [employer] electrode placement system. EEG INTERPRETATION: Background in the most stimulated state consists of 10-20 microvolt, 1-4 Hz cont inuous generalized slowing discharges with some reactivity to noxious stimulatio n. During reactivity to stimulation, noted asymmetry in the background with high er amplitude on the right frontotemporal head region, at times with increased fa st activity. Drowsiness/Sleep The patient is intubated, and sedated during the recording. No sleep structure is identified. Photic stimulation with flash frequencies of 2-21 Hz is not associated with post erior photic driving. No photoparoxysmal response noted. 2-lead EKG showed normal sinus rhythm. IMPRESSION: This routine EEG done in the intubated, sedated state is abnormal due to : 1- Continuous generalized slowing of the background, suggestive of moderate to s evere non specific encephalopathy in addition to sedative medication effect. 2- Asymmetry in the background with increased amplitude and fast activity in the right frontotemporal head region, c/w the patient's known structural skull defe ct (breach rhythm) in this region. 3- No clearcut epileptiform discharges or seizure activity noted in this recordi ng. * Jameel Brannon MD - 06/22/2021 12:43 PM EDT Associated Order(s): 1ED EKG Interpretation 1ED EKG Interpretation Date/Time: 06/22/2021 12:44 PM Performed by: Jameel Brannon MD Authorized by: Jameel Brannon MD ECG reviewed by ED Physician in the absence of a professor in family studies: yes Interpretation: Interpretation: abnormal Rate: ECG rate assessment: tachycardic Rhythm: Rhythm: sinus tachycardia Ectopy: Ectopy: none QRS: QRS axis: Normal QRS intervals: Normal Conduction: Conduction: normal ST segments: ST segments: Normal T waves: T waves: normal * Jameel Brannon MD - 06/22/2021 12:09 PM EDT Associated Order(s): 5Critical Care 5Critical Care Performed by: Jameel Brannon MD Authorized by: Jameel Brannon MD Critical care provider statement: Critical care time (minutes): 30 Critical care time was exclusive of: Separately billable procedures and treat ing other patients and teaching time Critical care was necessary to treat or prevent imminent or life-threatening d eterioration of the following conditions: RN CORRECTIONAL failure or compromise Critical care was time spent personally by me on the following activities: Ob taining history from patient or surrogate, ordering and performing treatments an d interventions, ordering and review of laboratory studies, ordering and review of radiographic studies, pulse oximetry and re-evaluation of patient's condition documented in this encounter Consult Notes * Yojana Chavez [facility] - 06/25/2021 5:10 PM EDT Social Work Brief Screen Patient Name: Tuan Verdugo Pronoun Date of : 1965 County of Residence: [place] Admitting Dx: Status epilepticus [G40.901] Admitting Provider: Radha Tiwari MD Referral Type: Inpatient Referral Source: Nurse; Denia Murray RN Reason for Referral: Substance Use/Abuse Date: June 25, 2021 Emergency Contacts Name: selma Verdugo Spouse Address: [address] [place], [place] [id number] Home: Work: Primary Caregiver: self Informant(s): Patient Authorized to Consent: self This writer technical publications received an [employer] chat about patient this morning. This writer technical publications atten ds rounds and was not informed patient was being discharged today. Albeit, this writer technical publications learned at approximately 1530 that patient is being discharg ed today. This writer technical publications had contacted [facility] earlier in the day and they we re just completing their assessment with patient. Only, they could not fully as sess patient as he appeared very confused per [facility]'s Majo. Next, this writer technical publications met with patient and this writer technical publications was unable to set up mental h ealth services for patient as it was very difficult to have a balanced conversat ion with patient. This writer technical publications called Majo of [facility] who reports she was prepar ed to complete her assessment of patient tomorrow-she did not realize he is bein g discharged today. She asked for this writer technical publications to include information for her tea m in [facility] in his discharge paperwork. This writer technical publications will do so, as it appear s difficult to relay the information to patient and receive a sensible response. Because of what appears to be patients loose associations in thought, this writer technical publications cannot set up a mental health appointment. This writer technical publications asked patient wh o he used to see in [facility] and he could not finish the sentence in a manner t hat made any sense. As a result, this writer technical publications will write for patient to re-connect with the therapist who suggested coming to his house for home visits in the "Other Referrals" part of patients discharge paperwork. Interventions Assessed for SW needs. Signature: Yojana Chavez Date: June 25, 2021 * Yojana Chavez LMSW - 06/25/2021 1:08 PM EDT Social Work Brief Screen Patient Name: Tuan Verdugo Pronoun Date of : 1965 County of Residence: [place] Admitting Dx: Status epilepticus [G40.901] Admitting Provider: Radha Tiwari MD Referral Type: Substance Abuse Referral Source: Yojana Chavez LMSW Reason for Referral: Substance Use/Abuse Date: June 25, 2021 Emergency Contacts Name: selma Verdugo Spouse Address: [address] [place] [address] Home: Work: Primary Caregiver: self Informant(s): Patient Authorized to Consent: self This writer technical publications received a consult for patient from Denia Murray RN regarding dona ent being connected to substance use treatment. This writer technical publications reached out to Fiona delacruz of [facility] who reports she will be seeing patient this afternoon. Interventions Provided psychological support and education to patient on substance use/depende ncy disorder. Encouraged patient to avoid drugs and alcohol. Signature: Yojana Chavez Date: June 25, 2021 * Yojana Chavez LMSW - 06/25/2021 11:11 AM EDT Social Work Brief Screen Patient Name: Tuan Verdugo Pronoun Date of : 1965 County of Residence: [place] Admitting Dx: Status epilepticus [G40.901] Admitting Provider: Radha Tiwari MD Referral Type: Substance Abuse Referral Source: Nurse; Denia Murray RN Reason for Referral: Substance Use/Abuse Date: June 25, 2021 Emergency Contacts Name: selma Verdugo Spouse Address: [address] [place] [address] Home: Work: Primary Caregiver: self Informant(s): Record Authorized to Consent: self This writer technical publications is continuing the work of E Thermodynamics Teacher Obdulia lozoya h this patient. Obdulia provided this writer technical publications a very through hand-off entailing what she has accomplished with patient and the next steps of the treatment plan. Below, is an excerpt of Obdulia's chat. ". He was interested in outpatient substance use treatment through [facility] in [place], [place], but I couldn't schedule him an appt until transportation was figured out, as his works throughout the day. I was going to talk to him today also about a referral to Peer Engagement through [email or web address], as they can follow on ce he's discharged and help with other referrals. Please let me know if you have any questions." This writer technical publications will garbage pick up man from where Obdulia has left off and work on [facility], inquire if patient is taking a maintenance drug and if he will need a script for it post discharge as well as connecting patient to Peer Suppo rt with [facility]. Interventions Care Coordination Signature: Yojana Chavez Date: June 25, 2021 * Obdulia Roach LMSW - 06/24/2021 1:06 PM EDT Associated Order(s): IP CONSULT TO SOCIAL WORK Social Work Brief Screen Patient Name: Tuan Verdugo Pronoun Date of : 1965 County of Residence: [place] Admitting Dx: Status epilepticus [G40.901] Admitting Provider: Radha Tiwari MD Referral Type: Inpatient Referral Source: Nurse; Maureen Witt RN Reason for Referral: Alcohol Use/Abuse Substance Use/Abuse Date: June 24, 2021 Emergency Contacts Name: selma Verdugo Spouse Address: [address] [place] [address] Home: Work: Primary Caregiver: self Informant(s): Patient Authorized to Consent: self SW was consulted because Tuan's significant other, Selma, asked for a consult t o be please for CATIA for Tuan's alcohol use. CATIA went to visit with Tuan who was eating his lunch, and asked if he was able to talk right now. He was agreeable. CATIA introduced myself and my role. He states that he is feeling better today, but that he has been in and out of the hospital for his seizures for a while now. Nichole Llanes asked him if there is anything he can think of that may impact his seizures or make them worse. He talked about how his ensures that he is taking his med ications each day. He then brought up his alcohol use, stating that he feels lik e his alcohol use is a contributing factor to his health problems and winding up in the hospital. CATIA asked him to elaborate on that, and he states that he has ayse flood told time and time again that his alcohol use is affecting his health and se izures. When prompted, he talked about how his alcohol use has affected not only his health, but his relationships--specifically naming his relationship with hi s , his 33 year old son, and his 14 year old son. He states that they all wa nt him to stop drinking. ACTIA asked him what he wants at this point for himself. H e stated that he wants to be sober. He states he was sober from 1374-3811, and t hen as time went on he started using again. He voiced that drinking is what keep s him preoccupied during the day, as he states he mostly bored at home with noth ing to do. CATIA asked him what he would like to be doing, and he was unsure what e lse he'd want to be doing, as he states that walking around and using his walker is difficult for him. He states it is exhausting. He also voiced that he [place] use counseling, but that he could not get to the appt that was in person in the [facility], as his wi fe is his main source of transportation. He states that he knows that his h as a lot of pressure on her to bring him to/from all of his appointments. He sta jg he'd prefer to meet with a counselor for alcohol use in person, but is shawn rned about getting there. Tuan denied any feelings of anxiety, depression, or change in his mood. He voic ed that he would like better relationships with his family. He is not interested in inpatient treatment at this time. He states he would really like CATIA to help him find a substance use counselor in his area closer to home, and for CATIA to amy oneida an appt. He asked for me to contact his Selma first however, as she would need to be a part of the plan due to transportation needs. CATIA also spoke with Ade jacome about looking into other transportation options through [facility] he was interested in. CATIA looked into TBI Waiver Services, however, Tuan do es not have Medicaid. CATIA put in a call to Selma to discuss this plan. CATIA left a voicemail and is await ing a call back. CATIA researched [facility]uan and Selma, and [facility] for outpatient substance u se support. Tuan was interested in this program. CATIA is also researching adult d ay programs that may be suitable for Tuan to give him something to do throughou t the day. Social Work Alcohol Use Disorders Identification (AUDIT) Assessment How often do you have a drink containing alcohol? 2-3 times a week (3 pts) How many drinks containing alcohol do you have on a typical day when you are dri nking? 7, 8 or 9 (3 pts) How often do you have six or more drinks on one occasion? Weekly (3 pts) How often during the last year have you found that you were not able to stop dri nking once you had started? Never (0 pts) How often during the last year have you failed to do what is normally expected f rom you because of drinking? Never (0 pts) How often during the last year have you needed a first drink in the morning to g et yourself going after a heavy drinking session? Never (0 pts) How often during the last year have you had a feeling of guilt or remorse after drinking? Never (0 pts) How often during the last year have you been unable to remember what happened th e night before because you had been drinking? Less than monthly (1 pt) Have you or someone else been injured as a result of your drinking? Yes, during the last year (4 pts) Has a relative, friend, doctor or other health worker been concerned about your drinking or suggested you cut down? Yes, during the last year (4 pts) AUDIT Score 18 Addendum: CATIA received a call back from Tuan's spouse Selma. She voiced that she does have challenges bringing Tuan to/from his medical appts. CATIA provided her an update on what I spoke to Tuan about today. She states that he's been to groups and co unseling for alcohol before, and is worried it will not help again. She wanted t o see if he'd go to inpatient. CATIA stated that I can present it again as an optio n tomorrow but that he deferred today. She voiced that Tuan "gets really mean" when he drinks, and voiced frustration and feeling like she's at the end of her rope with what to do. SW spoke with her and validated her frustrations and feeli ngs of defeat. SW will speak again to Tuan tomorrow. SW also talked with her ab out transportation. SW contacted [facility] and s tarted the application online. SW to finish the application with Tuan tomorrow. They stated that they take 7-10 days to review applications and see what transp ortation they're eligible for, which depends on their needs. CATIA is not able to s chedule an outpatient substance use counseling appt for Tuan at this time due t o lack of transportation. CATIA asked Selma if he's applied for Medicaid before; sh e states that they tried when he was at a rehab this summer but he's not eligibl e. SW to also look into [facility] Benefits since he is service connected. SW put in a c all at the [facility]; awaiting a call back. Interventions Provided psychological support and education to patient on adjustment to illness and relapse prevention. Provided community resource information on inpatient/ou tpatient substance abuse program. Referred to transportation. Encouraged patient to inform special education case manager about any concerns. Encouraged patient to avoid drugs an d alcohol. Encouraged direct communication. Encouraged problem solving. Assessed for SW needs. 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 Prior to Admission Medications Prescriptions Last Dose Informant Patient Reported? Taking? Amitriptyline HCl 25 MG Oral Tablet (ELAVIL) Pharmacy Yes Yes Sig: Take 25 mg by mouth nightly Artificial Tear Solution (GENTEAL TEARS OP) Pharmacy Yes Yes Sig: Apply 1 drop to eye Three times daily Both eyes Artificial Tears 0.5-0.6 % Ophthalmic Solution (Polyvinyl Alcohol-Povidone) Pha rmacy Yes Yes Sig: Place 1 drop into both eyes Four times daily Note (06/22/2021): Pt uses PRN Ascorbic Acid 500 MG Oral Tablet (ASCORBIC ACID) Pharmacy Yes Yes Sig: Take 500 mg by mouth daily Bisacodyl 10 MG Rectal Suppository (DULCOLAX) Pharmacy Yes Yes Sig: Place 10 mg rectally daily as needed for Constipation Ezetimibe 10 MG Oral Tablet (ZETIA) Pharmacy No Yes Sig: Take 1 tablet by mouth nightly Folic Acid 1 MG Oral Tablet (FOLVITE) Pharmacy No Yes Si tablet by Per G Tube route daily Hypromellose 2.5 % Ophthalmic Solution (GONIOSOL) Pharmacy No Yes Sig: Place 1 drop into both eyes Three times daily Note (06/22/2021): Pt uses PRN Metoprolol Tartrate 25 MG Oral Tablet (LOPRESSOR) Pharmacy Yes Yes Sig: Take 25 mg by mouth Two Times Daily Modafinil 200 MG Oral Tablet (PROVIGIL) Pharmacy Yes Yes Sig: Take 200 mg by mouth daily Nitroglycerin 0.4 MG Sublingual Tablet Sublingual (NITROSTAT) Pharmacy Yes Yes Sig: Place 0.4 mg under the tongue every 5 (five) minutes as needed for Chest p ain Pantoprazole Sodium 20 MG Oral Tablet Delayed Release (PROTONIX) Pharmacy Yes Y es Sig: Take 20 mg by mouth daily Senna 8.6 MG Oral Tablet Pharmacy Yes Yes Sig: Take 1 tablet by mouth daily Note (06/22/2021): Pt uses PRN Tab-A-Martín/Beta Carotene Oral Tablet Pharmacy Yes Yes Sig: Take 1 tablet by mouth daily Vitamin B-1 100 MG Oral Tablet Pharmacy Yes Yes Sig: Take 100 mg by mouth daily Vitamin D (Cholecalciferol) 25 MCG (1000 UT) Oral Capsule Pharmacy Yes Yes Sig: Take 1,000 Units by mouth daily acetaminophen (TYLENOL) 500 MG tablet Pharmacy Yes Yes Sig: Take 500 mg by mouth every 4 (four) hours as needed for Pain levETIRAcetam 500 MG Oral Tablet (KEPPRA) Pharmacy No Yes Sig: Take 1 tablet by mouth Two Times Daily predniSONE 5 MG Oral Tablet (DELTASONE) Pharmacy Yes Yes Sig: Take 5 mg by mouth daily rOPINIRole HCl 1 MG Oral Tablet (REQUIP) Pharmacy Yes Yes Sig: Take 1 mg by mouth Two Times Daily Facility-Administered Medications: None Medication History Source: [facility] [place] [facility] [place] [address] [facility] [address] [facility] [id number] Liam Dow PharmD Emergency Department Pharmacist Medication history was completed based on information available during this dona ent encounter, the list above may not be all inclusive. * Pierce Man MD - 06/22/2021 11:16 AM EDT Associated Order(s): IP CONSULT TO NEUROSURGERY Images from the [place] [address] PATIENT NAME: Tuan Verdugo, DATE OF : 1965 . Subjective Date of Encounter: 06/22/2021 Reason for Consultation: management recommendations. Requested By: ED History of Present Illness: 55M PMHx seizure disorder, sarcoidosis, hx decompres sive craniectomy 06/16/2020 for R acute SDH s/p cranioplasty 06/26/2020 and Certas VPS placement on 08/04/2020 for post-traumatic hydrocephalus coming in after hav ing seizures. Patient was reported to have multiple seizures for which he was ta lorenzo to OSH where he was intubated with paralytic around 9 AM this morning. He wa s transferred here for further care. No further history could be obtained given patient is intubated. During last admission had his Certas valve dialed to [address] shows signs of overdrainage Reason for Initial Placement:Post traumatic hydrocephalus Type of Shunt Valve:Certas Shunt Setting per record:Certas@5 Current Shunt Setting based on xray/interrogation:pending Additions to shunt system:none Original insertion:Dr. Alcocer @ [facility] 08/04/2020 Past revision:no Number of previous revisions:0 When/Where was last revision:n/a Reason for last revision:n/a Baseline ventricles on imaging:enlarged but symmetric Do ventricles enlarge on imaging in shunt failure:yes Clinical Exam on Shunt Failure:n/a Review of Systems Pertinent items are noted in HPI. Active Problems: Patient Active Problem List Diagnosis Date Noted Subdural hemorrhage 04/09/2021 Midline shift of brain 04/09/2021 Acute on chronic intracranial subdural hematoma 03/07/2021 Encounter for care related to feeding tube 02/06/2021 Hypernatremia 10/22/2020 Altered mental status 10/22/2020 S/P evacuation of subdural hematoma Localization-related epilepsy Communicating hydrocephalus Traumatic brain injury with loss of consciousness Status epilepticus 07/31/2020 PEG (percutaneous endoscopic gastrostomy) status 07/08/2020 Left hemiparesis 07/08/2020 Left-sided neglect 07/08/2020 Impaired mobility and activities of daily living 07/08/2020 Impaired cognition 07/08/2020 Traumatic subdural bleed with LOC of 6 hours to 24 hours 07/08/2020 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 07/08/2020 Verbal apraxia 07/08/2020 Apraxia 07/08/2020 Oropharyngeal dysphagia 06/30/2020 Hyponatremia 06/18/2020 Brain compression 06/18/2020 Pulmonary fibrosis Seizure disorder Essential hypertension Past Medical History: Past Medical History: Diagnosis Date Alcohol abuse Coronary arteriosclerosis 01/10/2012 Coronary artery disease Essential hypertension Head trauma Hyperlipidemia Hypertension Leg pain Lower back pain Obstructive sleep apnea syndrome 01/01/2013 Old myocardial infarction 01/10/2012 Premature beats 01/28/2017 Pulmonary fibrosis Pure hypercholesterolemia 01/10/2012 Sarcoidosis of lung Seizure disorder Seizures Stroke Past Surgical History: Past Surgical History: Procedure Laterality Date CORONARY ANGIOPLASTY WITH STENT PLACEMENT CRANIOTOMY removal blood clots Allergies: No Known Allergies Prior to Admission Medications:(Not in a hospital admission) Family History: Family History Problem Relation Age of Onset Early Sister Early Brother Stroke Brother Alcohol abuse Other Drug abuse Other Social History: Social History Tobacco Use Smoking status: Former Smoker Smokeless tobacco: Never Used Substance Use Topics Alcohol use: Yes Comment: quit 10 yrs ago Objective Vitals Pulse: [126] 126 Resp: [14] 14 BP: (124-125)/(95-99) 125/99 FiO2: [60 %] 60 % SpO2: [100 %] 100 % Intake/Output Last 3 Completed Shifts No intake/output data recorded. Physical Exam General Appearance: NAD Mental status: eyes open to voice, follow commands, regards examiner Language: intubated Cranial Nerves: PERRL, FS Strength: squeezes hand BUE to command, spontaneously movement BLE Shunt reservoir depressed and refills briskly, no erythema or fluctuance along s mcmahon tubing Data Review CBC: No results for input(s): WBC, RBC, HGB, HCT, PLT, NEUTOPHILPCT, MONOPCT in the l ast 168 hours. Invalid input(s): EOSPCT BMP: No results for input(s): NA, K, CL, BICARBONATE, GLUCOSE, BUN, CREATININE, BCR, LABOSMO, GFRAA, GFRNONAA in the last 168 hours. COAGS: No results for input(s): INR in the last 168 hours. Invalid input(s): PT, PTT Assessment/Plan Tuan Verdugo is a 55 y.o. male patient withPMHx seizure disorder, sarcoid osis, hx decompressive craniectomy 06/16/2020 for R acute SDH s/p cranioplasty and Certas VPS placement on 08/04/2020 for post-traumatic hydrocephalus c oming in with seizures Neuro: Exam limited by sedation, patient opening eyes to voice and follow commands, uriel l re-examine, please continue to HOLD ALL SEDATION OSH CTH shows improvement of left convexity SDH and significant improvement in m idline shift with re-expansion of left lateral ventricle; no acute hemorrhage, n o skull fracture seen Recommend shunt series Recommend neuro ICU admission for seizure and AED management Wean to extubation as tolerated if no further seizures No acute neurosurgical intervention Neurosurgery will follow Discussed with chief resident Dr. Keen and attending Dr. Alcocer. Pierce Man MD (Tony) Neurosurgery PGY-2 Associated attestation - Andrei Alcocer MD - 06/22/2021 3:57 PM EDT I personally evaluated the patient on 06/22/2021. I reviewed and discussed the hi story, exam findings, relevant laboratory and imaging data, assessment and plan with the resident physician. I agree with the findings and plans described, exce pt/unless as listed below or other supplemental documentation. Patient presenting after multiple seizures. His history is significant for a sei zure disorder and shunted post-traumatic hydrocephalus. He's intubated but awake and alert. Following commands. Gripping with BUE and wiggling toes in BLE. CT head with improvement in left sided chronic subdural collection and improved ventricular size. Recommend continuing Certas valve at 5. Patient should follow- up in clinic in 4-[address] head without contrast. Neurosurgery will follow for exam after extubation. documented in this encounter ED Notes * Jamel Lemon RN - 06/22/2021 11:17 AM EDT Bed: A05 Expected date: Expected time: Means of arrival: Comments: Hold for intubated transfer * Jameel Brannon MD - 06/22/2021 11:03 AM EDT History No Known Allergies No chief complaint on file. Immunization History Administered Date(s) Administered Lisa SARS-CoV-2 Vaccine 12/31/2020 Tuan Verdugo is a 55 y.o. male with history of TBI, chronic bilateral SDH, se izure disorder, hydrocephalus s/p MARKET RESEARCH MANAGER shunt who presents as transfer from [facility] for seizures. Per EMS, patient had seizure at home and fell from [facility] center couch, and then subsequently had 2 more episodes while at [facility]. Did not return back to baseline between episodes. Was intubated for airway protection a [facility]. Was placed on propofol and given [address] head was done which showed improvement of his SDH compared to prior CT head done on . He was transferred to [facility] for higher level of care. Presented as a lev el 2 trauma given possibility of trauma to the head along with SDH. EMS reports patient did have one episode of hypotension with SBP in the 80s which was treate d with a 1 L bolus of fluid and Levophed. Levophed and propofol drip off at thi s time. Past Medical History: Diagnosis Date Alcohol abuse Coronary arteriosclerosis 01/10/2012 Coronary artery disease Essential hypertension Head trauma Hyperlipidemia Hypertension Leg pain Lower back pain Obstructive sleep apnea syndrome 01/01/2013 Old myocardial infarction 01/10/2012 Premature beats 01/28/2017 Pulmonary fibrosis Pure hypercholesterolemia 01/10/2012 Sarcoidosis of lung Seizure disorder Seizures Stroke Past Surgical History: Procedure Laterality Date CORONARY ANGIOPLASTY WITH STENT PLACEMENT CRANIOTOMY removal blood clots Family History Problem Relation Age of Onset Early Sister Early Brother Stroke Brother Alcohol abuse Other Drug abuse Other Social History Tobacco Use Smoking status: Former Smoker Smokeless tobacco: Never Used Vaping Use Vaping Use: Former Substance Use Topics Alcohol use: Yes Comment: quit 10 yrs ago Drug use: No E-Cigarette Use: Former User Social Screening Review of Systems Unable to perform ROS: Intubated Physical Exam Visit Vitals BP 136/104 Pulse (!) 117 Temp 37.1 C (Oral) Resp 16 Ht 1.72 m SpO2 100% BMI 19.81 kg/m Please refer to the nursing trauma record for details. We did a primary survey of the patient as follows: Airway: intubated Breathin oh ETT, 24 at the lip, good breath sounds bilaterally with equal ch est rise. Circulation: Well-perfused, good pulses in all 4 extremities. No obvious massive external hemorrhage. Disability: 3T We did a secondary survey as follows: Calvarium: Normocephalic, atraumatic. 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 3 mm Ears: No hemotympanum. No drainage or bleeding. Nose: No septal hematoma. No drainage or bleeding. Face: Lower lip abrasion, otherwise no obvious facial trauma, instability, or cr epitus. Dental: No dental trauma. No malocclusion. Neck: Atraumatic, no crepitus, no JVD, no tracheal deviation. C-Spine and Back: No step-off. Chest: Good breath sounds bilaterally, with equal chest rise. No crepitus, no obvious trauma. CVS: Normal S1 and S2. Good pulses in all 4 extremities, well-perfused, no mass yari external hemorrhage appreciated. Abdomen: Soft,no rebound, no guarding, non-peritoneal. : Atraumatic. No bleeding or discharge. Pelvis: Stable. Extremities: Non-tender, no gross deformity, no step-off, good pulses in all ext remities. Neuro: GCS 3 T, was on sedation ED Course (Entries in this section may reflect care that occurred after patient hand-off a nd are the responsibility of that provider as indicated by their initials.) Procedures MDM 55 y.o. male presenting with multiple seizures, fall. On arrival to the ED, pat ient's vitals were notable for tachycardia. On physical exam, primary and secon olivia survey as noted above. Reviewed OSH imaging and lab work. Consulted neuro surgery and consulted neurology for neuro ICU admission. Neurosurgery recommend ed obtaining shunt series, and holding sedation to obtain better neuro exam.Dona ent subsequently opens eyes to voice, follows commands, moving all 4 extremities equally. Neurology admitted patient to the neuro ICU. Please see their notes for further details. Clinical impression: Status epilepticus Condition: Stable Disposition: Neuro ICU Hattie Phelan MD Resident 06/22/21 191 I saw and evaluated the patient. Discussed with the resident and agree with the residents findings and plans as written, along with any supplemental dictated a nd/or attending documentation in the patient record by myself. Jameel Brannon MD 06/24/21 1341 * Seth Castaneda, RN - 06/22/2021 10:40 AM EDT Pt had 4 seizures falling from couch hitting head. Pt received emot 30 and succ 100 and was intubated . Prop 50mg started 08 documented in this encounter Miscellaneous Notes * Assessment & Plan Note - Karson Parham, FLAVIA - 06/24/2021 10:19 AM EDT Occupational Therapy Acute Care Functional Living Examination Medical Diagnosis: fall from couch secondary to seizure History of Present Illness: Per Epic: "55M PMHx seizure disorder, sarcoidosis, hx decompressive craniectomy 06/16/2020 for R acute SDH s/p cranioplasty 06/26/2020 and Certas VPS placement on 08/04/2020 for post-traumatic hydrocephalus coming in after having seizures. Patient was reported to have multiple seizures for which he was taken to OSH where he was intubated with paralytic around 9 AM this morning. He was transferred here for further care. No further history could be obtained given patient is intubated. During last admission had his Certas valve dialed to [address] shows signs of overdrainage ?" Date of Admission: 06/22/2021 10:45:00 AM Demographics: Age: 55 Gender: Male Past Medical History and Radiographics: Significant rehabilitation considerations: Per EPIC: "Past Medical History: DiagnosisDate ?Alcohol abuse? ?Coronary arteriosclerosis01/10/2012 ?Coronary artery disease? ?Essential hypertension? ?Head trauma? ?Hyperlipidemia? ?Hypertension? ?Leg pain? ?Lower back pain? ?Obstructive sleep apnea syndrome01/01/2013 ?Old myocardial infarction01/10/2012 ?Premature beats01/28/2017 ?Pulmonary fibrosis? ?Pure hypercholesterolemia01/10/2012 ?Sarcoidosis of lung? ?Seizure disorder? ?Seizures? ?Stroke? ? ? Past Surgical History: Past Surgical History: ProcedureLateralityDate ?CORONARY ANGIOPLASTY WITH STENT PLACEMENT?? ?CRANIOTOMY?? ?removal blood clots" XR Skull 05/09/21:"IMPRESSION: There is no evidence for catheter tubing discontinuity or acute angulation." Chest XR 05/09/21: "IMPRESSION: There is no evidence for catheter tubing discontinuity or acute angulation." CT Head 05/09/21: "IMPRESSION: 1. Chronic subdural hematoma along left cerebral convexity which has decr Rehabilitation Precautions/Restrictions: OOB to chair SUBJECTIVE Premorbid Level of Activities of Daily Living: Reports independence with ADLs with intermittent supervision from family. Needs assistance with IADLs at baseline. Not able to drive. Denies any other pertinent falls. Family assists with transportation. helps with medication administration. Reports he uses a rollator walker for long distances or community ambulation. Occupation: Disabled. Likes to do yardwork. Social History: Patient does not live alone. Patient lives with and 14 year old child . If needed: Family member is willing to assist. able to assist as needed. Older son comes every day to assist patient. Home Environment: 2 level home. 4 steps to enter with bilateral handrails. Bedroom and bathroom on first floor. Tub shower and shower chair. +Grab bars. Regular bed. Full flight of stairs to 2nd floor. Reports he typically does not use them and if he does he has to crawl them to increased exertion. Equipment Owned: rollator walker, rolling walker, straight cane, shower chair, grab bars in bathroom. Pain: Patient has no complaints of pain currently. Pain Medication Today: yes. OBJECTIVE General Observation: Patient supine in bed, NAD, agreeable to therapy. +BP cuff, +telemetry, +oximeter. +PIV RUE Bed alarm was on at start of session. Vital Signs: Stable. Blood Pressure: 129/89 mm Hg Heart Rate: 99 beats per minute Respiratory Rate: 22 breaths/min Oxygen Saturation: 98 % UPPER EXTREMITY FUNCTION Hand Dominance: right. Range of Motion: BUE WFL for self care tasks. Strength: BUE WFL against gravity. Skin Integrity Screen: visible skin appears intact Endurance: fair (+). Tone/Spasticity: No relevant impairments. Sensation: Grossly intact. Edema: No edema is present. LOWER EXTREMITY FUNCTION: Olegario LEs WFL for self care tasks and functional transfers. Cognitive Screen: Responsiveness: Alert. Orientation: The patient is oriented to person, place and time. Following Commands: Able to follow 2 step commands. Memory: Questionable. Patient with history of TBI . Communications: Clear, can make wants and needs known. Executive Function: Patient with deficits in executive functioning due to history of TBI . Attention: Normal. Cognitive Test Score: Not applicable. Vision Screen: Wears corrective lenses at all times. Unable to see distances without lenses. Perception: Perception was within normal limits with today's examination. Functional Mobility: Patient required contact guard assist x1 for all transfers and functional mobility. Observed to bump into objects at times. Fine Motor Coordination: Upper extremity fine motor coordination is grossly intact. Gross Motor Coordination: Upper extremity gross motor coordination is intact. Balance: Static balance in a standing position: Good- Dynamic balance in a standing position: Fair+ Activities of Daily Living: Feeding: Independent. Observed patient during task. Grooming: Supervision. Observed patient during task. Bathing - Upper Body: Supervision. Observed patient during task. Bathing - Lower Body: Supervision. Observed patient during task. Upper Body Dressing: Supervision. Observed patient during task. Lower Body Dressing: Supervision. Observed patient during task. Toileting: Supervision. Observed patient during task. Toilet Transfer: Supervision. Observed patient during task. Outcome Measure: [facility] "[facility] Clicks" Daily Activity Inpatient Short Form: Putting on and taking off regular lower body clothing: A little assistance (3) Bathing (including washing, rinsing, and drying): A little assistance (3) Toileting (including use of toilet, bedpan, or urinal): A little assistance (3) Putting on and taking off regular upper body clothing: A little assistance (3) Taking care of personal grooming such as brushing teeth: No assistance (4) Eating meals: A little assistance (3) Raw Score: 19 /24 Interventions: None provided today. Splinting: No splint issued today. Education: Educational needs: OT role, plan of care, discharge planning, ADLs, safety. Barriers to Learning: Cognitive limitations. Learning Preference: Auditory. Mode of education provided: Explanation. Audience: Patient. Education Provided: OT role, plan of care, discharge planning, safety, ADLs . Response: Needs practice/reinforcement. ASSESSMENT Low Complexity Evaluation: An occupational profile and medical and therapy history, which includes a brief history including review of medical and/or therapy records relating to the presenting problem. An assessment(s) that identifies 1-3 performance deficits (i.e., relating to physical, cognitive, or psychosocial skills) that result in activity limitations and/or participation restrictions. Patient presents with no comorbidities that affect occupational performance. Modification of tasks or assistance (i.e., physical or verbal) with assessment(s) is not necessary to enable completion of evaluation component. Clinical decision-making of low complexity which includes an analysis of the occupational profile, analysis of data from problem-focused assessment(s), and consideration of a limited number of treatment options. Response to Evaluation: The session was tolerated well. Patient with cognitive deficits at baseline impacting ability to perform ADLs and IADLs independently. Requires supervision for safety. Patient reports family can provide / assistance. Patient left sitting in recliner chair with all needs met. Call ron was in patient's reach at end of session. Chair alarm was on at end of session. Pain: Patient has no complaints of pain currently. Strengths: Social/family support. Goals: Patient's functional goals: "to go home" The patient's therapy goals are based on limitations/impairments in the following areas: Baseline level impairments that do not require restorative therapy at this time. Short Term Goals: Not applicable. Baseline level impairments that do not require restorative therapy. Shelter Goals: Not applicable. PLAN Treatment Frequency, Duration and Interventions: Occupational Therapy services are discontinued at this time secondary to: No need for skilled therapy intervention at this time. Equipment Provided: None issued this visit. Equipment Recommended: None, patient has necessary equipment at home. Recommended Occupational Therapy Follow Up: Upon acute care discharge, the following is currently recommended: 24 hour supervision. Recommended Consults: None currently. Development of Plan of Care: Participants included: Patient. Nurse. Goal Review Visit Number: 1 Visit Number: Today's visit is number 1 Program: Neuro (Therapist may be reached on Vocera) SESSION: Duration: 34 CHARGES: - ORDER - OCCUPATIONAL THERAPY CONSULT 1 Units - NEURO VISIT 1 Units [id number] - CHARGE - OT EVAL; LOW COMPLEXITY 2 Units - 0 Units - 0 Units - 0 Units - 0 Units Total treatment minutes: 34.00 Minutes Electronically Signed by: Karson Morales OT, OTR 06/24/2021 12:13:01 PM * Assessment & Plan Note - Aura Cash, PT - 06/24/2021 9:35 AM EDT Physical Therapy Acute Care ICU Examination Medical Diagnosis: Fall Seizure cluster with suspected status epilepticus, now resolved Acute hypoxic respiratory failure requiring mechanical ventilation, now extubated on 06/23/21 History of Present Illness: Per EPIC: "Tuan Verdugo is a 55 y.o. 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 He was with altered mental status and brought to [facility] where he was intubated and given 2g Keppra. OSH trauma scanning concerning for new SDH and patient was transferred to [facility] for higher level of care. En route, patient provided with Versed 2.5mg and Fentanyl 50mcg for sedation. Following, patient with single episode of hypotension with SBP 80s which was treated with a 1L bolus fluids and a Levophed gtt en route. Reported GCS 3, L pupil 2mm reactive, R pupil 1mm nonreactive. ? Upon arrival, patient GCS 3, pupils 2mm round reactive. Levophed successfully weaned off. C-collar applied. CXR done to evaluate ETT placement and Pelvic XR obtained, patient brought to scan for cervical spine imaging. " Date of Onset: prior to admission Date of Admission: 06/22/2021 10:45:00 AM Demographics: Age: 55 Gender: Male Past Medical History and Radiographics: Significant rehabilitation considerations: Per EPIC: Past Medical History: ?Alcohol abuse? ?Coronary arteriosclerosis01/10/2012 ?Coronary artery disease? ?Essential hypertension? ?Head trauma? ?Hyperlipidemia? ?Hypertension? ?Leg pain? ?Lower back pain? ?Obstructive sleep apnea syndrome01/01/2013 ?Old myocardial infarction01/10/2012 ?Premature beats01/28/2017 ?Pulmonary fibrosis? ?Pure hypercholesterolemia01/10/2012 ?Sarcoidosis of lung? ?Seizure disorder? ?Seizures? ?Stroke? ? ? Past Surgical History: ?CORONARY ANGIOPLASTY WITH STENT PLACEMENT?? ?CRANIOTOMY?? ?removal blood clots ? Rehabilitation Precautions/Restrictions: OOB to Chair Allow Range of Motion Exercises for PT/OT Precaution: Seizure high fall risk per neurosurgery note 06/23/21 : "Cervical collar dc'ed." SUBJECTIVE Mental Status: Responsiveness:Alert. Orientation:Oriented to person, place and year. Pt reads board in room for month and date. Pt oriented to situation. Pt requiring increased time to answer orientation and prior level of function questions. Following Commands: Able to follow 1 step commands. Patient requires multiple cues with multi step commands. Arouses to: WNL. Prior Functional Level: The patient reported the premorbid level of function was modified independent with use of walker or cane. Reports one fall from couch during seizure which led to this admission and no other falls in last 6 months. provides transportation to appointments. States assists him with dressing and bathing. States provides assist for cooking, cleaning and laundry. Occupation: [employer]. Social History: Patient does not live alone. Patient lives with and 14 year old child . If needed: Family member is willing to assist. States 33 year old son stops in every day to check on him. States his works during the day. Reports sometimes he is alone at home. Home Environment: Per patient has 3 steps to enter with olegario handrails. Home is 2 stories but pt states tries to keep him on the first floor. First floor has full bathroom with tub/shower. [facility] getting a walk in shower. If pt needs to go upstairs there are 7 stairs with right handrail. Equipment Owned: Shower stool. Rolling walker. Rollator. Straight cane. Pain: Patient has no complaints of pain currently. Pain Medication Today: no. OBJECTIVE General Observation: Patient received supine in bed with head of bed elevated, eating breakfast, in NAD. + telemetry, pulse ox and BP cuff. + PIV RUE Bed alarm was on at start of session. Position: The position of the patient upon entering the room was: Supine with head of bed elevated approximately 45 degrees Vital Signs: Blood Pressure: 151/87 mm Hg Heart Rate: 105 beats per minute Respiratory Rate: 23 breaths/min Oxygen Saturation: 100 % Lines, Tubes, and Drains: Intact. Skin Integrity Screen: visible skin appears intact Tone: No relevant impairments. Range of Motion: AROM WFL all extremities Strength: At least 3/5 throughout all extremities, WFL for transfers, gait and stairs Edema: No edema is present. Functional Mobility: Bed Mobility:Patient moves from supine to/from sit with independence. bed flat, no bed rail Transfers:Patient transferred sit to/from stand requiring verbal cues only. Patient used the following equipment: Transfer belt. Patient used the following equipment: Arms of chair. Needs constant cues to push from sitting surface and not pull on walker Locomotion/Wheelchair: Not assessed. Locomotion/Gait/Ambulation: Patient was contact guard with gait/ambulation of 1 person for 1 trial approximately 120 ft, 1 trial approximately 60 ft . Patient requires the following assistive device(s): Gait belt. Lateral sway. Pt reports feeling unsteady and "kanchan" with no device Patient was also supervision with gait/ambulation for 1 trial approximately 100 ft, 1 trial approximately 80 ft . Patient requires the following assistive device(s): Gait belt. Rolling walker. Steady gait speed. No lateral sway. Stairs: CGAx 13 stairs with unilateral rail. Reciprocal pattern to ascend, step to pattern to descend. Holds unilateral rail with olegario UE. Pulmonary Status: Within normal limits. Neuromotor: WNL. Sensation: Detailed Sensation: Reports numbness/tingling to olegario hands and feet. States this is his normal. Endurance: good. Balance: fair. Outcome Measures: [facility] "6 Clicks" Basic Mobility Inpatient Short Form: Turning over in bed: No difficulty (4) Sitting down on and standing up from a chair with arms: A little difficulty (3) Moving from lying on back to sitting on the side of the bed: No difficulty (4) Moving to and from a bed to a chair (including a wheelchair): A little help (3) Walking in hospital room: A little help (3) Climbing 3-5 steps with a railing: A little help (3) Raw Score 20 /24. Interventions: None provided today. Education: Educational needs: Role of acute care PT. Safety and fall risk precautions. Discharge planning. Pacing. Negotiation of busy hallway environment Barriers to Learning: Acuity of illness/injury. Cognitive limitations. Learning Preference: Does not state preference Mode of education provided: Explanation. Audience: Patient. Education Provided: Role of acute care PT. Safety and fall risk precautions. Discharge planning. Pacing. Negotiation of busy hallway environment. . Response: Needs practice/reinforcement. ASSESSMENT Low Complexity Evaluation: An examination of body system(s) using standardized tests and measures addressing 1-2 elements from any of the following: body structures and functions, activity limitations, and/or participation restrictions. A clinical presentation with stable and/or uncomplicated characteristics. Clinical decision-making of low complexity using standardized patient assessment instrument and/or measurable assessment of functional outcome. Response to Evaluation: The session was tolerated well. Patient motivated to mobilize. Call ron was in patient's reach at end of session. Chair alarm was on at end of session. Patient seated on waffle cushion at end of session. Pain: Patient has no complaints of pain currently. Other Rehabilitation Considerations: Patient's progress may be impaired by the following potential barriers: Cognitive impairments. Medical condition. Support Structure: Support structure is good. Family member willing to assist patient. States 33 year old son can provide 24/7 assist if needed. Strengths: Independent premorbid function. Motivated to improve function. Social/family support. Goals: Patient's functional goals: to return home The patient's therapy goals are based on limitations/impairments in the following areas: Balance. Gait. Stairs/Curbs/Environmental barrier negotiation. Transfers. Short Term Goals: 1. Patient will perform all functional transfers independently in 1 week. 2. Patient will ambulate at least 200 ft modified independently in 1 week. Dredge Deckhand Goals: 1. Patient will negotiate at least 7 stairs modified independent in 2 weeks. PLAN Treatment Frequency, Duration and Interventions: Restorative Physical Therapy is recommended for 5x per week for 2 weeks Treatment is to include: Gait Training. Manual Therapy. Massage. Neuromuscular Re-education. Therapeutic Activity. Therapeutic Exercise. Wheelchair Management Self Care/Home Management. Equipment Provided: None issued this visit. Equipment Recommended: To be assessed. Recommended Physical Therapy Follow Up: Upon acute care discharge, the following is currently recommended: 24 hour supervision. Per pt 33 year old son can provide / assist. Recommended Consults: Occupational Therapy. Development of Plan of Care: Participants included: Nurse. Patient. Goal Review Visit Number: 1 Visit Number: Today's visit is number 1 Program: Neuro (Therapist may be reached on Vocera) SESSION: Duration: 57 CHARGES: - ORDER - Physical Therapy Treatment 1 Units - NEURO VISIT 1 Units [id number] - CHARGE - PT EVAL; LOW COMPLEXITY 4 Units - 0 Units - 0 Units - 0 Units Total treatment minutes: 57.00 Minutes Electronically Signed by: Aura Cash PT, DPT, 06/24/2021 10:04:24 AM * Plan of Care - Jes Faulkner RN - 06/24/2021 12:47 AM EDT Problem: Spiritual Care Plan Goal: To assess spiritual care needs and hopes and mobilize spiritual resources for patients/families/caregivers that support/enhance quality of life related to hospitalization Description: To assess spiritual care needs and hopes and mobilize spiritual res ources for patients/families/caregivers that support/enhance quality of life rel ated to hospitalization. Outcome: Progressing Problem: Risk for Falls Goal: No falls during hospitalization Description: Patient will not fall during hospitalization. Outcome: Progressing Problem: Knowledge Deficit Goal: Knowledge - personal safety Description: Patient will verbalize understanding of fall prevention. Outcome: Progressing Problem: Hemodynamic Status Goal: Patient will remain hemodynamically stable Description: Patient's vital signs, oxygenation, and labs will be monitored and deviations addressed. Outcome: Progressing Problem: Pain Goal: Pain is controlled to patient's desired goal Outcome: Progressing Problem: Risk for impaired skin integrity Goal: Skin integrity is maintained or improved Outcome: Progressing Problem: Fall Prevention Goal: No fall during Hospitalization Outcome: Progressing Problem: Impaired Physical Mobility Goal: Patient will maintain maximum physical mobility within prescribed activity and weight bearing restrictions Outcome: Progressing Problem: Risk for Infection Goal: The patient will receive immunization screening as indicated Outcome: Progressing Goal: Patient will remain free of infection in operative site Outcome: Progressing Goal: The patient will not develop pneumonia post-operatively Outcome: Progressing Problem: Risk for DVT/PE Goal: Patient will not develop a DVT/PE Outcome: Progressing Problem: Risk for Gastrointestinal Complications Goal: Patient will not develop gastrointestinal complications Description: Nausea/vomiting, constipation, dehydration Outcome: Progressing Problem: Self Care Deficit Goal: Patient will perform Activities of Daily Living at optimal level Outcome: Progressing Problem: Psychosocial Needs Goal: Psychosocial needs will be met during this hospitalization Outcome: Progressing Problem: Discharge Needs Goal: Patient discharge needs are met Description: Collaborate with interdisciplinary team and initiate plans and inte rventions as needed Outcome: Progressing * Plan of Care - Maureen Witt RN - 06/23/2021 5:34 PM EDT Problem: Spiritual Care Plan Goal: To assess spiritual care needs and hopes and mobilize spiritual resources for patients/families/caregivers that support/enhance quality of life related to hospitalization Description: To assess spiritual care needs and hopes and mobilize spiritual res ources for patients/families/caregivers that support/enhance quality of life rel ated to hospitalization. Outcome: Progressing Problem: Risk for Falls Goal: No falls during hospitalization Description: Patient will not fall during hospitalization. Outcome: Progressing Problem: Knowledge Deficit Goal: Knowledge - personal safety Description: Patient will verbalize understanding of fall prevention. Outcome: Progressing Problem: Hemodynamic Status Goal: Patient will remain hemodynamically stable Description: Patient's vital signs, oxygenation, and labs will be monitored and deviations addressed. Outcome: Progressing Problem: Pain Goal: Pain is controlled to patient's desired goal Outcome: Progressing Problem: Risk for impaired skin integrity Goal: Skin integrity is maintained or improved Outcome: Progressing Problem: Fall Prevention Goal: No fall during Hospitalization Outcome: Progressing Problem: Impaired Physical Mobility Goal: Patient will maintain maximum physical mobility within prescribed activity and weight bearing restrictions Outcome: Progressing Problem: Risk for Infection Goal: The patient will receive immunization screening as indicated Outcome: Progressing Goal: Patient will remain free of infection in operative site Outcome: Progressing Goal: The patient will not develop pneumonia post-operatively Outcome: Progressing Problem: Risk for DVT/PE Goal: Patient will not develop a DVT/PE Outcome: Progressing Problem: Risk for Gastrointestinal Complications Goal: Patient will not develop gastrointestinal complications Description: Nausea/vomiting, constipation, dehydration Outcome: Progressing Problem: Self Care Deficit Goal: Patient will perform Activities of Daily Living at optimal level Outcome: Progressing Problem: Psychosocial Needs Goal: Psychosocial needs will be met during this hospitalization Outcome: Progressing Problem: Discharge Needs Goal: Patient discharge needs are met Description: Collaborate with interdisciplinary team and initiate plans and inte rventions as needed Outcome: Progressing * Completion Note - Redd Carranza MD - 06/23/2021 2:17 PM EDT Perform within 24 hours of admission: 06/22/2021 10:45 AM History changes: None Medication Reconciliation Confirmed:Yes General Change from H&P HEENT []Yes [x]No Neck []Yes [x]No Heart []Yes [x]No Chest/Lung []Yes [x]No Abdomen/Pelvis []Yes [x]No Back/Spine []Yes [x]No /Rectal []Yes [x]No Extremities []Yes [x]No Neurologic []Yes [x]No GCS: Eye Opening Response Spontaneous--open with blinking at baseline (4 points) Verbal Response Oriented (5 points) Motor Response Obeys commands for movement (6 points) Total 15; Patient currently intubated and sedated Final Read Change from Preliminary: Chest Xray [x]Yes []No No Pelvis Xray [x]Yes []No No Other: [x]Yes []No No Diagnosis: 55 y.o. 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 He initially presented as a leveled trauma after a witness fall off of this couch and imaging at an OSH demonstrated chronic B/L SDH. He was intubated and transferred to [facility] for further management. On examination today, he is extubated with a GCS of 15. His tertiary examination is benign and without evidence of new injuries. There are no acute injuries caio t would indicate operative management by the trauma surgery team. Plan: Trauma surgery to sign-off; no operative interventions indicated. Remainde r of the patient's care will be per the primary team. Redd Carranza MD -- PGY-1 [facility] Department of Surgery documented in this encounter Plan of Treatment Care Team Description Date Type Specialty 07/01/2021 Hospital Radiology Encounter Andrei Alcocer MD [address] 1[address] Floor [address] [place] [id number] 07/01/2021 Office Visit Neurosurgery Order Schedule Name Type Priority Associated Diag noses Once for 1 Occurrences starting 06/22/20 21 until 06/22/2021 Hemoglobin A1c Lab Routine Once for 1 Occurrences starting 06/22/20 until 06/22/2021 Blood gas, arterial Lab Routine Daily for 3 Days starting 06/25/2021 unt il 06/27/2021, 1 completed Basic Metabolic Panel Lab Routine Daily for 30 Days starting 06/25/2021 un til 07/24/2021, 1 completed CBC Lab Routine Health Maintenance Due Date Last Done Comments Hepatitis C Screening (B. 1965 [id number]) MMR Vaccines (1 of 1 - 1966 Standard series) Pneumococcal Vaccine: 65+ 1969 Years (1 of 3 - PCV13) Pneumococcal Vaccine: 1971 Pediatrics (0 to 5 Years) and At-Risk Patients (6 to 64 Years) (1 of 3 - PCV13) HIV Screening 1976 Colon Cancer Screening 10 2013 yrs DTaP,Tdap,and Td Vaccines 02/05/2019 01/08/2019 (2 - Td or Tdap) Varicella Vaccines (1 of 06/14/2019 04/19/2019 2 - 2-dose childhood series) Influenza Vaccine 07/03/2021 07/11/2018, 07/12/2016, 07/03/2015, Additional history exists COVID-19 Vaccine Completed 12/31/2020 HIB Vaccines Aged Out No longer eligible based on patient's age to complete this topic Hepatitis A Vaccines Aged Out No longer eligibl e based on patient's age to complete this topic Hepatitis B Vaccines Aged Out No longer eligibl e based on patient's age to complete this topic IPV Vaccines Aged Out No longer eligible based on patient's age to complete this topic documented as of this encounter Implants Device Identifier Shelf Expiration Date Model / Serial / L ot Implanted Type Area Manufactur er 04/01/2023 [id number] / / [id number] Graft Dural Onlay [id number] - Right: Cranial INTEGR A [id number] LIFESCIENC Implanted: Qty: 1 on 06/16/2020 by ES SURG. Andrei Alcocer MD at OR [facility] PRO [id number] / [id number] / [id number] Implant Cranial Peek X-Large - Right: Cranial KELYNI AM [id number] Implanted: Qty: 1 on 06/26/2020 by Andrei Alcocer MD at [address] 05/02/2023 [id number] / / [id number] Graft Dural Onlay [id number] - Right: Cranial INTEGR A [id number] LIFESCIENC Implanted: Qty: 1 on 06/26/2020 by ES SURG. Andrei Alcocer MD at OR [facility] PRO [id number] / / Screw Uniii Axs Sd Lp 1.5x4mm - Right: Cranial STRYK ER [id number] CORPORATIO Implanted: Qty: 6 on 06/26/2020 by Andrei Vallecillo MD at [address] 09/01/2021 [id number] / / [id number] Kit Safety Peg Pull 20fr - N/A: Stomach [place] [id number] SCIENTIFIC Implanted: Qty: 1 on 07/01/2020 by Himanshu Barfield DO at [facility] 05/02/2021 [id number] / / [id number] Cath Ventricular + Distal - Left: Cranial INTEGRA [id number] LIFESCIENC Implanted: Qty: 1 on 08/04/2020 by ES SURGAndrei Henry MD at OR [facility] PRO 12/31/2024 [id number] / / [id number] Valve Certas W/Siphongardvalve Only Left: Cranial J +J CODMAN - [id number] Implanted: Qty: 1 on 08/04/2020 by Andrei Alcocer MD at OR [facility] documented as of this encounter Procedures Comments Procedure Name Priority Date/Time Associated Diag nosis BASIC METABOLIC PANEL Routine 06/25/2021 2:40 PM EDT CBC Routine 06/25/2021 3:58 AM EDT BASIC METABOLIC PANEL Routine 06/25/2021 3:58 AM EDT BASIC METABOLIC PANEL Routine 06/24/2021 9:51 AM EDT CBC Routine 06/24/2021 5:18 AM EDT CBC Routine 06/23/2021 8:28 AM EDT BASIC METABOLIC PANEL Routine 06/23/2021 8:28 AM EDT LEVETIRACETAM LEVEL Routine 06/22/2021 9:52 PM EDT DRUGS OF ABUSE, URINE STAT 06/22/2021 7:30 PM EDT URINALYSIS WITH STAT 06/22/2021 MICROSCOPIC 7:30 PM EDT CBC Routine 06/22/2021 6:59 PM EDT TSH Routine 06/22/2021 6:59 PM EDT CK Routine 06/22/2021 6:59 PM EDT LIPID PANEL Routine 06/22/2021 6:59 PM EDT RESPIRATORY PATHOGEN Routine 06/22/2021 PANEL 6:42 PM EDT COVID-19 PCR Routine 06/22/2021 6:42 PM EDT EEG ROUTINE STUDY Routine 06/22/2021 5:09 PM EDT EKG ED PHYSICIAN Routine 06/22/2021 INTERPRETATION 12:44 PM EDT EKG 12-LEAD - CMAXX 06/22/2021 REPORT 12:38 PM EDT EKG 12-LEAD - CMAXX 06/22/2021 REPORT 12:38 PM EDT EKG 12-LEAD Routine 06/22/2021 12:38 PM EDT XR ABDOMEN AP SUPINE AND Routine 06/22/2021 LATERAL VIEW [id number] 12:27 PM EDT XR SKULL LIMITED [id number] Routine 06/22/2021 12:27 PM EDT XR CHEST FRONTAL AND Routine 06/22/2021 LATERAL 59771 12:27 PM EDT CA CRITICAL CARE, E/M Routine 06/22/2021 30-74 MINUTES 12:[address] CERVICAL SPINE WITHOUT CODE 06/22/2021 CONTRAST [id number] 11:16 AM EDT PARTIAL THROMBOPLASTIN STAT 06/22/2021 TIME (PTT) 11:14 AM EDT ETHYL ALCOHOL LEVEL CODE 06/22/2021 11:14 AM EDT PROTIME INR STAT 06/22/2021 11:14 AM EDT FIBRINOGEN LEVEL STAT 06/22/2021 11:14 AM EDT CBC AND DIFFERENTIAL Routine 06/22/2021 11:14 AM EDT TYPE AND SCREEN STAT 06/22/2021 11:14 AM EDT LIPASE LEVEL CODE 06/22/2021 11:14 AM EDT COMPREHENSIVE METABOLIC CODE 06/22/2021 PANEL 11:14 AM EDT XR PELVIS 1-2 VIEWS [id number] STAT 06/22/2021 11:06 AM EDT XR CHEST FRONTAL ONLY STAT 06/22/2021 06139 11:06 AM EDT documented in this encounter Results * Basic Metabolic Panel (06/25/2021 2:40 PM EDT) Bicarbonate 23 22 - 29 mmol/L [facility] Clin Pathology Chloride 107 98 - 107 mmol/L [facility] Pathology Creatinine 0.86 0.70 - 1.20 mg/dL [facility] Pathology Glucose 90 70 - 140 mg/dL [facility] Pathology Potassium 3.7 3.4 - 5.1 mmol/L [facility] Pathology Sodium 143 136 - 145 mmol/L [facility] Pathology Blood Urea 8 6 - 20 mg/dL [facility] Nitrogen [facility] Pathology Anion Gap 13 8 - 15 mmol/L [facility] Pathology Osmolality, Yoel 294 275.0 - 300.0 [facility] mosm/kg [facility] Pathology BUN/Cre Ratio 9 [facility] Pathology Calcium 9.0 8.6 - 10.0 mg/dL [facility] Clin Pathology GFR Non >90 >60 mL/min/1.73m2 [facility] 2008 [facility] Clin CDK-EPI Pathology GFR >90 >60 mL/min/1.73m2 [facility] 2008 [facility] Clin CKD-EPI Pathology Specimen Plasma Performing Organization Address City/State/ZIP Code P amparo Number [facility] [address] [place], [place] [address] PATHOLOGY [facility] [address] [place], [place] [address] Clin Pathology * CBC (06/25/2021 3:58 AM EDT) White Blood 8.5 4.00 - 10.00 10*3/uL [facility] ate Cell [facility] Clin Pathology Red Blood Cell 5.66 4.60 - 6.10 10*6/uL [facility] te [facility] Hemoglobin 14.5 13.5 - 18.0 g/dL [facility] Pathology Hematocrit 45.2 41.0 - 53.0 % [facility] Pathology Mean Cell 79.8 (L) 80.0 - 96.0 fL [facility] Volume [facility] Path[facility] Mean Cell 25.6 (L) 27.0 - 33.0 pg [facility] Hemoglobin [facility] Path[facility] Mean Cell Hgb 32.0 32 - 36 g/dL [facility] Clin Pathology Red Cell Dist 15.5 (H) 11.5 - 14.5 % [facility] Clin Pathology Platelet Count 101 (L) 150 - 400 10*3/uL [facility] Clin Pathology Specimen EDTA Whole Blood Performing Organization Address City/[facility]/ZIP Code P amparo Number [facility] [address] [place], [place] 1321 PATHOLOGY [facility] [address] [place], [place] [address] Clin Pathology * Basic Metabolic Panel (06/25/2021 3:58 AM EDT) Bicarbonate 23 22 - 29 mmol/L [facility] Clin Pathology Chloride 100Comment: Confirmed 98 - 107 mmol/L [facility] Clin Pathology Creatinine 1.01 0.70 - 1.20 mg/dL [facility] Pathology Glucose 83 70 - 140 mg/dL [facility] Pathology Potassium 2.9 (LL)Comment: Results 3.4 - 5.1 mmol/L [facility] called to and read back by [facility] CODIE KABA RN ON 5A AT Pathology [id number] BY [phone] CONFIRMED Sodium 137Comment: Confirmed 136 - 145 mmol/L [facility] U pstate [facility] Pathology Blood Urea 6 6 - 20 mg/dL [facility] Nitrogen [facility] Pathology Anion Gap 15Comment: Confirmed 8 - 15 mmol/L [facility] ate [facility] Pathology Osmolality, Yoel 281Comment: Confirmed 275.0 - 300.0 [facility] mosm/kg [facility] Pathology BUN/Cre Ratio 6 [facility] Pathology Calcium 9.1 8.6 - 10.0 mg/dL [facility] Pathology GFR Non 81 >60 mL/min/1.73m2 [facility] [place] [facility] Clin CDK-EPI Pathology GFR >90 >60 mL/min/1.73m2 [facility] [place] 2008 [facility] Clin CKD-EPI Pathology Specimen Plasma Performing Organization Address City/State/ZIP Code P amparo Number [facility] [address] [place], [place] 1321 PATHOLOGY [facility] [address] [place], [place] [address] Clin Pathology * Basic Metabolic Panel (06/24/2021 9:51 AM EDT) Bicarbonate 17 (L) 22 - 29 mmol/L [facility] Pathology Chloride 107 98 - 107 mmol/L [facility] Pathology Creatinine 1.23 (H) 0.70 - 1.20 mg/dL [facility] Pathology Glucose 111 70 - 140 mg/dL [facility] Pathology Potassium 3.9Comment: Hemolyzed 3.4 - 5.1 mmol/L [facility] U pstate [facility] Pathology Sodium 140 136 - 145 mmol/L [facility] Pathology Blood Urea 6 6 - 20 mg/dL [facility] Nitrogen [facility] Pathology Anion Gap 16 (H) 8 - 15 mmol/L [facility] Clin Pathology Osmolality, Yoel 288 275.0 - 300.0 [facility] mosm/kg [facility] Pathology BUN/Cre Ratio 5 [facility] Pathology Calcium 8.4 (L) 8.6 - 10.0 mg/dL [facility] Clin Pathology GFR Non 64 >60 mL/min/1.73m2 [facility] 2008 [facility] Clin CDK-EPI Pathology GFR 74 >60 mL/min/1.73m2 [facility] 2008 [facility] CKD-EPI Pathology Specimen Plasma Performing Organization Address City/State/ZIP Code P amparo Number [facility] [address] [place], [place] [address] PATHOLOGY [facility] [address] [place], [place] [address] Clin Pathology * CBC (06/24/2021 5:18 AM EDT) White Blood 9.8 4.00 - 10.00 10*3/uL [facility] ate Cell [facility] Clin Pathology Red Blood Cell 5.25 4.60 - 6.10 10*6/uL [facility] te [facility] Pathology Hemoglobin 13.4 (L) 13.5 - 18.0 g/dL [facility] Pathology Hematocrit 42.2 41.0 - 53.0 % [facility] Pathology Mean Cell 80.4 80.0 - 96.0 fL [facility] Volume [facility] Pathology Mean Cell 25.5 (L) 27.0 - 33.0 pg [facility] Hemoglobin [facility] Pathology Mean Cell Hgb 31.7 (L) 32 - 36 g/dL [facility] Clin Pathology Red Cell Dist 16.1 (H) 11.5 - 14.5 % [facility] Clin Pathology Platelet Count 104 (L) 150 - 400 10*3/uL [facility] Clin Pathology Specimen EDTA Whole Blood Performing Organization Address [facility] P amparo Number [facility] [address] [place], [place] [address] [address] Clin Pathology * Basic Metabolic Panel (06/23/2021 8:28 AM EDT) Bicarbonate 21 (L) 22 - 29 mmol/L [facility] Pathology Chloride 113 (H) 98 - 107 mmol/L [facility] Pathology Creatinine 1.19 0.70 - 1.20 mg/dL [facility] Pathology Glucose 143 (H) 70 - 140 mg/dL [facility] Pathology Potassium 3.9 3.4 - 5.1 mmol/L [facility] Pathology Sodium 146 (H) 136 - 145 mmol/L [facility] Pathology Blood Urea 6 6 - 20 mg/dL [facility] Clin Pathology Anion Gap 12 8 - 15 mmol/L [facility] Pathology Osmolality, Yoel 302 (H) 275.0 - 300.0 [facility] mosm/kg [facility] Pathology BUN/Cre Ratio 5 [facility] Pathology Calcium 8.4 (L) 8.6 - 10.0 mg/dL [facility] Clin Pathology GFR Non 66 >60 mL/min/1.73m2 [facility] [place] 2008 [facility] Clin CDK-EPI Pathology GFR 77 >60 mL/min/1.73m2 [facility] 2008 [facility] Clin CKD-EPI Pathology Specimen Plasma Performing Organization Address [facility]/ZIP Code P amparo Number [facility] [address] [place], [place] [address] [address] Clin Pathology * CBC (06/23/2021 8:28 AM EDT) White Blood 9.7 4.00 - 10.00 10*3/uL [facility] ate Cell [facility] Pathology Red Blood Cell 5.83 4.60 - 6.10 10*6/uL [facility] Clin Pathology Hemoglobin 14.8 13.5 - 18.0 g/dL [facility] Pathology Hematocrit 46.7 41.0 - 53.0 % [facility] Pathology Mean Cell 80.1 80.0 - 96.0 fL [facility] Volume [facility] Pathology Mean Cell 25.3 (L) 27.0 - 33.0 pg [facility] Hemoglobin [facility] Pathology Mean Cell Hgb 31.6 (L) 32 - 36 g/dL [facility] Clin Pathology Red Cell Dist 15.9 (H) 11.5 - 14.5 % [facility] Width [facility] Pathology Platelet Count 118 (L) 150 - 400 10*3/uL [facility] Pathology Specimen EDTA Whole Blood Performing Organization Address City/[facility]/ZIP Code P amparo Number [facility] [address] [place] [address] [address] Clin Pathology * Levetiracetam level (06/22/2021 9:52 PM EDT) Levetiracetam 13 12 - 46 ug/mL [facility] Lvl [facility] Pathology Specimen Serum Performing Organization Address City/[facility]/ZIP Code P amparo Number [facility] [address] [place], [place] [address] [address] Clin Pathology * Urinalysis with microscopic (06/22/2021 7:30 PM EDT) Color Colorless [facility] Pathology Clarity Clear [facility] Pathology Specific 1.010 1.003 - 1.030 [facility] [place] [facility] Path[facility] PH Urine 5.0 5.0 - 8.0 [facility] Pathology Total Protein Negative Negative mg/dL [facility] UA [facility]ology Glucose UA Negative Negative mg/dL [facility] Pathology Ketone Urine 5 (A) Negative mg/dL [facility] Pathology Bilirubin Negative Negative [facility] Pathology Hemoglobin, 1+ (A) Negative [facility] Urine [facility] Leukocyte Negative Negative Neeraj/uL [facility] Esterase [facility] Pathology Nitrite Negative Negative [facility] Clin Pathology WBC 1 0 - 5 /HPF [facility] Clin Pathology RBC <1 0 - 3 /HPF [facility] Clin Pathology Bacteria, UA 1+ (A) None /HPF [facility] Clin Pathology Mucus, UA Trace (A) None /LPF [facility] Clin Pathology Granular Cast 4 (A) None /LPF [facility] Clin Pathology Uric Acid Wandy, Trace (A) None /HPF [facility] UA [facility] Pathology Specimen Urine Performing Organization Address [facility]/ZIP Code P amparo Number [facility] [address] [place], [place] [address] [address] Clin Pathology * Drugs Of Abuse, Urine (06/22/2021 7:30 PM EDT) Amphetamine Negative Negative Cutoff [address] [facility] [facility]ology Benzodiazepine Positive (A) Negative Cutoff [address] [place] Comment: [facility] (NOTE) Pathology Positive results are presumptive and unconfirmed;confirmatory testing can be ordered at the [facility] or [facility] at [phone] within 5 days of collection. Cannabinoids Negative Negative Cutoff 50 [address] [place] [place] Urine [facility] Pathology Cocaine Negative Negative Cutoff [address] [place] [facility] Methadone Negative Negative Cutoff [address] [place] (Dolophine) [facility] Pathology Opiates Negative Negative Cutoff [address] [place] [facility] Oxycodone Negative Negative Cutoff [address] [place] [facility]ology Fentanyl Positive (A) Negative Cutoff 1 [place] Comment: [facility] (NOTE) Pathology Positive results are presumptive and unconfirmed;confirmatory testing can be ordered at the [facility] or [facility] at [phone] within 5 days of collection. Drug (NOTE) [facility] Interpretation Comment: [facility] Results below the indicated Pathology cutoff (ng/mL), are reported as "Negative." Note: for medical purposes only; not valid for legal or employment testing. Specimen Urine Performing Organization Address City/State/ZIP Code P amparo Number [facility] [address] [place], [place] [address] [address] Clin Pathology * CBC (06/22/2021 6:59 PM EDT) White Blood 9.1 4.00 - 10.00 10*3/[facility]L [facility] Red Blood Cell 5.39 4.60 - 6.10 10*6/uL [facility]ology Hemoglobin 13.9 13.5 - 18.0 g/dL [facility] Pathology Hematocrit 43.5 41.0 - 53.0 % [facility] Pathology Mean Cell 80.7 80.0 - 96.0 fL [facility] Volume [facility] Path[facility] Mean Cell 25.8 (L) 27.0 - 33.0 pg [facility] Hemoglobin [facility] Pathology Mean Cell Hgb 32.0 32 - 36 g/dL [facility] Conc [facility] Pathology Red Cell Dist 16.0 (H) 11.5 - 14.5 % [facility] Width [facility] Clin Pathology Platelet Count 133 (L) 150 - 400 10*3/uL [facility] Clin Pathology Specimen EDTA Whole Blood Performing Organization Address [facility] P amparo Number [address] [address] Clin Pathology * CK (06/22/2021 6:59 PM EDT) Pathologist [facility] [facility] CK 373 (H) 20 - 200 U/L [facility] Clin Pathology Specimen Plasma Performing Organization Address City/[facility]/ZIP Code P amparo Number [address] [address] Clin Pathology * TSH (06/22/2021 6:59 PM EDT) TSH 0.769 0.27 - 4.20 u[IU]/mL [facility] ate [facility] Clin Pathology Specimen Plasma Performing Organization Address City/[facility]/ZIP Code P amparo Number [address] 1321 PATHOLOGY [facility] [address] [place], [place] [address] Clin Pathology * Lipid panel (06/22/2021 6:59 PM EDT) Cholesterol 264 (H) <200 mg/dL [facility] Clin Pathology Triglyceride 77 <150 mg/dL [facility] Clin Pathology HDL Cholesterol 120 >40 mg/dL [facility] Clin Pathology LDL Cholesterol 128 (H) <100 mg/dL [facility] Clin Pathology VLDL 15 (L) 16 - 42 mg/dl [facility] Clin Pathology Non HDL 144 (H) <130 mg/dL [facility] Clin Pathology Specimen Plasma Performing Organization Address City/[facility] Code P amparo Number [facility] CLINICAL [address] [place], [place] [address] [address] 10 Clin Pathology * COVID-19 PCR (06/22/2021 6:42 PM EDT) Specimen Nasopharyngeal Swab [facility] Description CLINICAL PATHOLOGY SARS CoV-2 2019 nCoV Real-Time RT-PCR: 2019 nCoV Real-Monster e [facility] NOT DETECTED RT-PCR: NOT DETECTED [facility] Clin Pathology Assay performed Test performed using [facility] Respiratory Panel. [facility] Clin Pathology First COVID-19 NO [facility] Test? CLINICAL PATHOLOGY Employed in [facility] CLINICAL setting? PATHOLOGY Symptomatic for NO [facility] COVID-19 as CLINICAL defined by CDC? PATHOLOGY Date of symptom UNKNOWN [facility] onset? CLINICAL ([id number]) PATHOLOGY Hospitalized NO [facility] for COVID-19? CLINICAL PATHOLOGY Admitted to ICU UNKNOWN [facility] for COVID-19? CLINICAL PATHOLOGY Resident in a [facility] CLINICAL (group) care PATHOLOGY setting? ? UNKNOWN [facility] CLINICAL PATHOLOGY Specimen Nasopharyngeal Swab Performing Organization Address City/[facility] P amparo Number [facility] CLINICAL [address] [place], [place] [address] 132 10 Clin Pathology * Respiratory Pathogen Panel (06/22/2021 6:42 PM EDT) Special Request None [facility] CLINICAL PATHOLOGY Respiratory PCR PCR Results [facility] CLINICAL PATHOLOGY Culture/Results See Labs Tab for 2019 nCoV NORBERTO Upsta te RT-PCR results [facility] Clin Pathology Adenovirus Not Detected [facility] Clin Pathology Coronavirus Not Detected [facility] [address] [facility] Clin Pathology Coronavirus Not Detected [facility] HKU1 [facility] Clin Pathology Coronavirus Not Detected [facility] NL63 [facility] Pathology Coronavirus Not Detected [facility] OC43 [facility] Clin Pathology Human Not Detected [facility] Metapneumovirus [facility] Clin Pathology Rhinovirus/ Not Detected [facility] Enterovirus [facility] Clin Pathology Influenza A Not Detected [facility] Clin Pathology Influenza B Not Detected [facility] Clin Pathology Parainfluenza Not Detected [facility] virus 1 [facility] Pathology Parainfluenza Not Detected [facility] virus 2 [facility]ology Parainfluenza Not Detected [facility] virus 3 [facility] Pathology Parainfluenza Not Detected [facility] virus 4 [facility] Pathology RSV Not Detected [facility] Clin Pathology Bordetella Not Detected [facility] pertussis [facility] Pathology Chlamydia Not Detected [facility] pneumoniae [facility] Clin Pathology Mycoplasma Not Detected [facility] pneumoniae [facility] Clin Pathology Bordetella Not Detected [facility] parapertussis [facility] Clin Pathology Specimen Nasopharyngeal Swab Performing Organization Address City/State/ZIP Code P amparo Number [facility] CLINICAL [address] [place] [address] PATHOLOGY [facility] [address] [place], [place] [address] Clin Pathology * EEG Routine Study (06/22/2021 5:09 PM EDT) Narrative Performed At Bebe Brush MD EXTERNAL NON-INTERFACED LAB 06/22/2021 7:46 PM EEG REPORT NUMBER [id number] DATE OF PROCEDURE: 06/22/2021 HISTORY: The patient is a 55 y.o. male with a hi story of TBI, chronic bilateral SDH, localization related epi lepsy on Keppra 500 bid at home, hydrocephalus s/p [employer]NAGER shunt, alcoh ol abuse, and pulmonary fibrosis who presents to [facility] ED tod ay as a transfer from [facility] for evaluation of seizure clu ster. No current facility-administered medica tions on file prior to encounter. Current Outpatient Medications on File Prior to Encounter Medication Sig Dispense Refill acetaminophen (TYLENOL) 500 MG tablet Take 500 mg by mouth every 4 (four) hours as needed for Pain Amitriptyline HCl 25 MG Oral Tablet ( ELAVIL) Take 25 mg by mouth nightly Artificial Tear Solution (GENTEAL TEA RS OP) Apply 1 drop to eye Three times daily Both eyes Artificial Tears 0.5-0.6 % Ophthalmic Solution (Polyvinyl Alcohol-Povidone) Place 1 drop into bot h eyes Four times daily Ascorbic Acid 500 MG Oral Tablet (ASC ORBIC ACID) Take 500 mg by mouth daily Bisacodyl 10 MG Rectal Suppository (D ULCOLAX) Place 10 mg rectally daily as needed for Constipation Ezetimibe 10 MG Oral Tablet (ZETIA) T sami 1 tablet by mouth nightly 30 tablet 11 Folic Acid 1 MG Oral Tablet (FOLVITE) 1 tablet by Per G Tube route daily 30 tablet 1 Hypromellose 2.5 % Ophthalmic Solutio n (GONIOSOL) Place 1 drop into both eyes Three times daily 15 mL 12 levETIRAcetam 500 MG Oral Tablet (KEP PRA) Take 1 tablet by mouth Two Times Daily 60 tablet 11 Metoprolol Tartrate 25 MG Oral Tablet (LOPRESSOR) Take 25 mg by mouth Two Times Daily Modafinil 200 MG Oral Tablet (PROVIGI L) Take 200 mg by mouth daily Nitroglycerin 0.4 MG Sublingual Table t Sublingual (NITROSTAT) Place 0.4 mg under the tongue every 5 ( five) minutes as needed for Chest pain Pantoprazole Sodium 20 MG Oral Tablet Delayed Release (PROTONIX) Take 20 mg by mouth daily predniSONE 5 MG Oral Tablet (DELTASON E) Take 5 mg by mouth daily rOPINIRole HCl 1 MG Oral Tablet (REQU IP) Take 1 mg by mouth Two Times Daily Senna 8.6 MG Oral Tablet Take 1 table t by mouth daily Tab-A-Martín/Beta Carotene Oral Tablet Take 1 tablet by mouth daily Vitamin B-1 100 MG Oral Tablet Take 1 00 mg by mouth daily Vitamin D (Cholecalciferol) 25 MCG (1 000 UT) Oral Capsule Take 1,000 Units by mouth daily Scheduled Meds: amitriptyline 25 mg Oral Nightly ezetimibe 10 mg Oral Nightly [START ON 06/23/2021] folic acid 1 mg Per G Tube Daily levETIRAcetam 500 mg Intravenous BID [START ON 06/23/2021] vitamin B-1 100 mg Oral Daily Continuous Infusions: dexmedetomidine 0.7 mcg/kg/hr ( 1459) sodium chloride 100 mL/hr at 06/22/21 1357 sodium chloride TECHNICAL DESCRIPTION: This digital EEG was recorded using 2 E KG and 21 scalp and/or ear electrodes. It was reviewed in referential and bip olar montages following reformatting in the 10-20 Int ernational electrode placement system. EEG INTERPRETATION: Background in the most stimulated state consists of 10-20 microvolt, 1-4 Hz continuous generalize d slowing discharges with some reactivity to noxious stimulation. During reactivity to stimulation, noted asymmetry in the charley kground with higher amplitude on the right frontotemporal h ead region, at times with increased fast activity. Drowsiness/Sleep The patient is intubat ed, and sedated during the recording. No sleep structure is identi fied. Photic stimulation with flash frequenci es of 2-21 Hz is not associated with posterior photic drivin g. No photoparoxysmal response noted. 2-lead EKG showed normal sinus rhythm. 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 3- No clearcut epileptiform discharges or seizure activity noted in this recording. Performing Organization Address City/State/ZIP Code P [place] Number EXTERNAL NON-INTERFACED LAB * 1ED EKG Interpretation (06/22/2021 12:44 PM EDT) Narrative Performed At Jameel Brannon MD EXTERNAL NON-INTERFACED LAB 06/22/2021 12:44 PM 1ED EKG Interpretation Date/Time: 06/22/2021 12:44 PM Performed by: Jameel Brannon MD Authorized by: Jameel Brannon MD ECG reviewed by ED Physician in the abs ence of a professor in family studies: yes Interpretation: Interpretation: abnormal Rate: ECG rate assessment: tachycardic Rhythm: Rhythm: sinus tachycardia Ectopy: Ectopy: none QRS: QRS axis: Normal QRS intervals: Normal Conduction: Conduction: normal ST segments: ST segments: Normal T waves: T waves: normal Performing Organization Address City/State/ZIP Code P am[place] Number EXTERNAL NON-INTERFACED LAB * EKG 12-LEAD - CMAXX REPORT (06/22/2021 12:38 PM EDT) Narrative Performed At This result has an attachment that is n ot available. * EKG 12-LEAD - CMAXX REPORT (06/22/2021 12:38 PM EDT) Narrative Performed At This result has an attachment that is n ot available. * EKG 12 Lead (06/22/2021 12:38 PM EDT) Specimen Narrative Performed At Ventricular Rate: [facility] EKG 112 BPM Atrial Rate: 112 BPM P-R Interval: 150 ms QRS Duration: 78 ms Q-T Interval: 320 ms QTC Calculation(Bazett): 436 ms [place]: 75 degrees R [place]: 83 degrees T [place]: 73 degrees : SINUS TACHYCARDIA : POSSIBLE RIGHT ATRIAL ENLARGEMENT : CANNOT RULE OUT INFERIOR INFARCT (CIT ED ON OR BEFORE : 16-JUN-2020) : ABNORMAL ECG : WHEN COMPARED WITH ECG OF 07-MAR-2021 16:21, : NO SIGNIFICANT CHANGE : Confirmed by Charan Keene ([id number]) on 06/22/2021 1:00:26 PM Procedure Note Interface, Received Via [employer] - 06/22/2021 1:00 PM EDT Ventricular Rate: 112 BPM Atrial Rate: 112 BPM P-R Interval: 150 ms QRS Duration: 78 ms Q-T Interval: 320 ms QTC Calculation(Bazett): 436 ms P [place]: 75 degrees R [place]: 83 degrees T [place]: 73 degrees : SINUS TACHYCARDIA : POSSIBLE RIGHT ATRIAL ENLARGEMENT : CANNOT RULE OUT INFERIOR INFARCT (CITED ON OR BEFORE : 16-JUN-2020) : ABNORMAL ECG : WHEN COMPARED WITH ECG OF 07-MAR-2021 16:21, : NO SIGNIFICANT CHANGE : Confirmed by Charan Keene ([id number]) on 06/22/2021 1:00:26 PM Performing Organization Address City/State/ZIP Code P amparo Number [facility] EKG * XR Abdomen AP Supine and Lateral View (06/22/2021 12:27 PM EDT) Specimen Impressions Performed At IMPRESSION: [facility] RADIOLOGY Questionable twist/kink of the [employer]GER shunt tubing in the right hemipelvis at the level of the second sacral segment on t he right (appreciated only on the frontal projection), which is poorly assessed o n the crosstable lateral images. It is important to note that this distal segm ent of the tube does have a different appearance than the prior study. A noncontrast CT of the Pelvis (only) m ay be of additional clinical utility. Narrative Performed At [facility] RADIOLOGY INDICATION: Shunt series COMPARISON: Images from a second series dated May 09, 2021 EXAM: Supine and crosstable lateral vie ws of the abdomen (5 images in total) FINDINGS: Cardiac monitoring leads are in place. An NGT extends below the left hemidiaphragm with the tube crossing th e midline and the tip looped back just to the left of center at the L1 level. The side port is not definitively visualized, but appears to be within th e medial right upper quadrant in the antropyloric region. [employer] shunt tubing courses along the later al aspect of the left hemithorax and left abdomen. The tube crosses over lower ab dominal pelvic confluence at the level of the left iliac crest. While a loop is s uggested on the crosstable lateral images in the lower abdomen, this appears to b e projectional as there is no evidence for such on the supine AP image. The tu be then descends into the right hemipelvis and turns laterally towards the right with the tip at the medial base of the right iliac crest. A twist/kink is suggested at the level where the turn is made over the second sacral segment on the frontal projection; however, this is poorly assessed on the lateral view. This is different than the prior exam when the tip terminated in the left kike tral pelvis. Bibasilar changes of atelectasis and sm all pleural effusions are suggested. No dilated loops of bowel are seen to sugg est obstruction. Procedure Note Interface, Received Via [employer] - 06/22/2021 12:51 PM EDT INDICATION: Shunt series COMPARISON: Images from a second series dated May 09, 2021 EXAM: Supine and crosstable lateral views of the abdomen (5 images in total) FINDINGS: Cardiac monitoring leads are in place. An NGT extends below the left hemidiaphragm with the tube crossing the midline and the tip looped back just to the left of center at the L1 level. The side port is not definitively visualized, but appears to be within the medial right upper quadrant in the antropyloric region. [employer]GER shunt tubing courses along the lateral aspect of the left hemithorax and left abdomen. The tube crosses over lower abdominal pelvic confluence at the level of the left iliac crest. While a loop is suggested on the crosstable lateral images in the lower abdomen, this appears to be projectional as there is no evidence for such on the supine AP image. The tube then descends into the right hemipelvis and turns laterally towards the right with the tip at the medial base of the right iliac crest. A twist/kink is suggested at the level where the turn is made over the second sacral segment on the frontal projection; however, this is poorly assessed on the lateral view. This is different than the prior exam when the tip terminated in the left central pelvis. Bibasilar changes of atelectasis and small pleural effusions are suggested. No dilated loops of bowel are seen to suggest obstruction. IMPRESSION: Questionable twist/kink of the [employer] MANAGER shunt tubing in the right hemipelvis at the level of the second sacral segment on the right (appreciated only on the frontal projection), which is poorly assessed on the crosstable lateral images. It is important to note that this distal segment of the tube does have a different appearance than the prior study. A noncontrast CT of the Pelvis (only) may be of additional clinical utility. Performing Organization Address City/State/ZIP Code P amparo Number [facility] RADIOLOGY [address] [place] [address] * XR Chest Frontal and Lateral (06/22/2021 12:27 PM EDT) Specimen Impressions Performed At FINDINGS/IMPRESSION: [facility] RADIOLOGY The endotracheal tube approaches the [facility] mainstem bronchus as communicated previously to Dr. Phelan at 11:59 AM. F or appropriate positioning it needs to be retracted at least by 2 cm. The enteric tube is partially visualize d traversing below the diaphragm. The tip is out of view of current radiograph A [employer]GER shunt is partially visualized jered ersing over the left side of the thorax. Visualized segment of [employer] MANAGER shunt in thora x do not show discontinuity or breakage Again noted are bilateral airspace opac ities in both upper and mid lungs, bilateral small pleural effusions with underlying atelectasis or consolidation. Cardiomediastinal silhouette remains st able. There is no pneumothorax. Narrative Performed At FRONTAL AP AND LATERAL CHEST RADIOGRAPH 06/22/2021 12: 00 PM [facility] RADIOLOGY INDICATION: Shunt series. COMPARISON: Chest radiograph dated 06/22. Procedure Note Interface, Received Via [employer] - 06/22/2021 12:35 PM EDT FRONTAL AP AND LATERAL CHEST RADIOGRAPH 06/22/2021 12:00 PM INDICATION: Shunt series. COMPARISON: Chest radiograph dated 06/22/2021. FINDINGS/IMPRESSION: The endotracheal tube approaches the right mainstem bronchus as communicated previously to Dr. Phelan at 11:59 AM. For appropriate positioning it needs to be retracted at least by 2 cm. The enteric tube is partially visualized traversing below the diaphragm. The tip is out of view of current radiograph A [employer] shunt is partially visualized traversing over the left side of the thorax. Visualized segment of [employer] MA[employer]GER shunt in thorax do not show discontinuity or breakage Again noted are bilateral airspace opacities in both upper and mid lungs, bilateral small pleural effusions with underlying atelectasis or consolidation. Cardiomediastinal silhouette remains stable. There is no pneumothorax. Performing Organization Address City/State/ZIP Code P amparo Number [facility] RADIOLOGY [address] [place] [address] * XR Skull Limited (06/22/2021 12:27 PM EDT) Specimen Narrative Performed At PROCEDURE INFORMATION: [facility] RADIOLOGY Exam: XR Skull Exam date and time: 06/22/2021 11:58 AM Age: 55 years old Clinical indication: Other: Shunt serie s TECHNIQUE: Imaging protocol: XR of the skull. Views: Less than 4 views. COMPARISON: CT HEAD WITHOUT CONTRAST [id number] 05/10/2021 12:49 AM FINDINGS: Tubes, catheters and devices: Left vent riculostomy catheter access with tunneled [employer]NAGER shunt tubing in the left sc alp and neck soft tissues without evidence of obstruction. Partially visu alized oral endotracheal and gastric tubes. Sinuses: Well aerated. No opacification . Bones/joints: Large open craniectomy de fect right parietal region. Soft tissues: See above. IMPRESSION: Left ventriculostomy catheter access wi th tunneled [employer] MANAGER shunt tubing in the left scalp and neck soft tissues without alireza dence of obstruction. THIS DOCUMENT HAS BEEN ELECTRONICALLY S IGNED BY MARJORIE IRELAND MD Procedure Note Interface, Received Via [employer] - 06/22/2021 11:31 PM EDT PROCEDURE INFORMATION: Exam: XR Skull Exam date and time: 06/22/2021 11:58 AM Age: 55 years old Clinical indication: Other: Shunt series TECHNIQUE: Imaging protocol: XR of the skull. Views: Less than 4 views. COMPARISON: CT HEAD WITHOUT CONTRAST [id number] 05/10/2021 12:49 AM FINDINGS: Tubes, catheters and devices: Left ventriculostomy catheter access with tunneled [employer] MANAGER shunt tubing in the left scalp and neck soft tissues without evidence of obstruction. Partially visualized oral endotracheal and gastric tubes. Sinuses: Well aerated. No opacification. Bones/joints: Large open craniectomy defect right parietal region. Soft tissues: See above. IMPRESSION: Left ventriculostomy catheter access with tunneled [employer] MANAGER shunt tubing in the left scalp and neck soft tissues without evidence of obstruction. THIS DOCUMENT HAS BEEN ELECTRONICALLY SIGNED BY MARJORIE IRELAND MD Performing Organization Address City/State/ZIP Code P amparo Number [facility] RADIOLOGY [address] [place] [address] * CRITICAL CARE (06/22/2021 12:09 PM EDT) Narrative Performed At Jameel Brannon MD EXTERNAL NON-INTERFACED LAB 06/22/2021 12:09 PM 5Critical Care Performed by: Jameel Brannon MD Authorized by: Jameel Brannon MD Critical care provider statement: Critical care time (minutes): 30 Critical care time was exclusive of: Separately billable procedures and treating other patients and teaching ti me Critical care was necessary to treat o r prevent imminent or life-threatening deterioration of the f ollowing conditions: RN CORRECTIONAL failure or compromise Critical care was time spent personall y by me on the following activities: Obtaining history from patient or surr ogate, ordering and performing treatments and interventions , ordering and review of laboratory studies, ordering and review of radiogr aphic studies, pulse oximetry and re-evaluation of patient's condition Performing Organization Address City/State/ZIP Code P amparo Number EXTERNAL NON-INTERFACED LAB * CT Cervical Spine without Contrast (06/22/2021 11:16 AM EDT) Specimen Impressions Performed At IMPRESSION: [facility] RADIOLOGY No acute displaced vertebral body fract ure or traumatic listhesis. Stable degenerative changes as discussed above . Narrative Performed At EXAMINATION: CT CERVICAL SPINE WITHOUT CONTRAST [id number] [facility] RADIOLOGY CLINICAL INDICATION: Seizure with fall. TECHNIQUE: Axial CT images of the cervi yoel spine were obtained without intravenous contrast administration. Reformatted images in coronal and sagi ttal planes were then acquired using the axial source data. Automated dose lowering techniques and /or adjustment according to patient size were utilized for this exam. COMPARISON: CT cervical spine dated 03/07, 06/16/2020; MR cervical spine dated 06/23/2020; CT thorax dated 06/17/2020. FINDINGS: No acute displaced vertebral body fracture or traumatic listhesis. Fragmentation seen about an anterior os teophyte at the level of the C5 upper endplate may represent minimally displa juice anterior osteophyte fracture. Straightening of the cervical lordosis with multilevel degenerative change, most conspicuous at C5-C6 and C6-C7 are agai n shown. No significant paraspinal soft tissue swelling. Endotracheal, enteric tubes and left [employer]GER shunt are partially visualized. Calcified lymph nodes, biap ical scarring, and left apical bullous changes are again shown. Procedure Note Interface, Received Via [employer] - 06/22/2021 11:51 AM EDT EXAMINATION: CT CERVICAL SPINE WITHOUT CONTRAST [id number] CLINICAL INDICATION: Seizure with fall. TECHNIQUE: Axial CT images of the cervical spine were obtained without intravenous contrast administration. Reformatted images in coronal and sagittal planes were then acquired using the axial source data. Automated dose lowering techniques and/or adjustment according to patient size were utilized for this exam. COMPARISON: CT cervical spine dated 03/07/2021, 06/16/2020; MR cervical spine dated 06/23/2020; CT thorax dated 06/17/2020. FINDINGS: No acute displaced vertebral body fracture or traumatic listhesis. Fragmentation seen about an anterior osteophyte at the level of the C5 upper endplate may represent minimally displaced anterior osteophyte fracture. Straightening of the cervical lordosis with multilevel degenerative change, most conspicuous at C5-C6 and C6-C7 are again shown. No significant paraspinal soft tissue swelling. Endotracheal, enteric tubes and left [employer]GER shunt are partially visualized. Calcified lymph nodes, biapical scarring, and left apical bullous changes are again shown. IMPRESSION: No acute displaced vertebral body fracture or traumatic listhesis. Stable degenerative changes as discussed above. Performing Organization Address City/State/ZIP Code P amparo Number [facility] RADIOLOGY [address] [place] [address] * Type and Screen (06/22/2021 11:14 AM EDT) ABO/RH(D) B POS [facility] Clin Pathology Gel Antibody NEG [facility] Screen [facility] Clin Pathology Site Performed at [facility] Clin Pathology Specimen EDTA Whole Blood Performing Organization Address City/[facility]/ZIP Code P amparo Number [facility] CLINICAL [address] [place], [place] [address] 132 10 Clin Pathology * Protime-INR (06/22/2021 11:14 AM EDT) PT Patient Clotted, Unit NotifiedComment: 11.6 - 14.0 s [facility] NOTIFIED CHANTE CARLSON ED AT 1250 [facility] [place] [id number] Pathology Int'l Clotted, Unit NotifiedComment: [facility] pstate Normalized NOTIFIED RN ROBYN ED AT [address] [facility] v Clin [place] 4384 Pathology Specimen Plasma Performing Organization Address [facility] [place] P amparo Number [address] 132 10 Clin Pathology * Partial Thromboplastin Time (PTT) (06/22/2021 11:14 AM EDT) PTT Clotted, Unit NotifiedComment: 24.0 - 33.0 s [facility] NOTIFIED RN ROBYN ED AT 1250 [facility] [place] 4384 Pathology Specimen Plasma Performing Organization Address City/[facility]/ZIP Code P amparo Number [address] 132 10 Clin Pathology * Lipase Level (06/22/2021 11:14 AM EDT) Lipase 31 13 - 60 U/L [facility] Clin Pathology Specimen Plasma Performing Organization Address City/[facility]/ZIP Code P amparo Number [facility] [address] [place] [address] [place] [address] 132 10 Clin Pathology * Fibrinogen Level (06/22/2021 11:14 AM EDT) Pathologist [facility] Fibrinogen Clotted, Unit NotifiedComment: 190 - 450 mg/dl [facility] NOTIFIED CHANTE CARLSON ED AT 1250 [facility] [place] 4384 Pathology Specimen Plasma Performing Organization Address [facility] [place] P amparo Number [address] 132 10 Clin Pathology * Ethyl Alcohol Level (06/22/2021 11:14 AM EDT) Pathologist [facility] Ethyl Alcohol Negative Negative g/dl [facility] Pathology Specimen Plasma Performing Organization Address City/[facility] [place] P amparo Number [address] 132 10 Clin Pathology * Comprehensive Metabolic Panel (06/22/2021 11:14 AM EDT) Pathologist [facility] Albumin 4.4 3.5 - 5.2 g/dL [facility] Clin Pathology Bilirubin, 0.5 <1.2 mg/dL [facility] Clin Pathology Calcium 8.2 (L) 8.6 - 10.0 mg/dL [facility] Clin Pathology Chloride 103 98 - 107 mmol/L [facility] Clin Pathology Creatinine 1.07 0.70 - 1.20 mg/dL [facility] Clin Pathology Glucose 135 70 - 140 mg/dL [facility] Clin Pathology Alkaline 112 40 - 129 U/L [facility] Phosphatase [facility] Clin Pathology Potassium 4.5Comment: Hemolyzed 3.4 - 5.1 mmol/L [facility] Clin Pathology Total Protein 8.0 6.4 - 8.3 g/dL [facility] Clin Pathology Sodium 141 136 - 145 mmol/L [facility] Clin Pathology AST/SGO 40 (H) <40 U/L [facility] Clin Pathology Blood Urea 5 (L) 6 - 20 mg/dL [facility] Nitrogen [facility] Clin Pathology Osmolality, Yoel 291 275.0 - 300.0 [facility] mosm/kg [facility] Pathology BUN/Cre Ratio 5 [facility] Clin Pathology Bicarbonate 15 (L) 22 - 29 mmol/L [facility] Clin Pathology ALT/SGP 16 <41 U/L [facility] Clin Pathology Anion Gap 23 (H) 8 - 15 mmol/L [facility] Clin Pathology GFR Non 75 >60 mL[facility]min[facility].73m2 [facility] CDK-EPI Pathology GFR 87 >60 mL/min/1.73m2 [facility] 2008 [facility] CKD-EPI Pathology Specimen Plasma Performing Organization Address City/State/ZIP Code P amparo Number [facility] [address] [place], [place] 1321 PATHOLOGY [facility] [address] [place], [place] 132 10 Clin Pathology * CBC and Differential (06/22/2021 11:14 AM EDT) White Blood 11.5 (H) 4.00 - 10.00 10*3/uL [facility] ate Cell [facility] Clin Pathology Red Blood Cell 5.65 4.60 - 6.10 10*6/uL [facility] te [facility] Clin Pathology Hemoglobin 14.9 13.5 - 18.0 g/dL [facility] Clin Pathology Hematocrit 45.8 41.0 - 53.0 % [facility] Clin Pathology Mean Cell 81.0 80.0 - 96.0 fL [facility] Volume [facility] Clin Pathology Mean Cell 26.4 (L) 27.0 - 33.0 pg [facility] Hemoglobin [facility] Clin Pathology Mean Cell Hgb 32.6 32 - 36 g/dL [facility] Clin Pathology Red Cell Dist 16.1 (H) 11.5 - 14.5 % [facility] Width [facility] Clin Pathology Platelet Count 137 (L)Comment: Confirmed 150 - 400 10*3/uL [facility] Clin Pathology Differential Automated Diff [facility] Type [facility] Clin Pathology Neutrophil 89 % [facility] Clin Pathology Lymphocyte 4 % [facility] Monocyte 6 % [facility] Clin Pathology Eosinophil 0 % [facility] Clin Pathology Basophil 1 % [facility] Clin Pathology Abs Neutrophil 10.25 (H) 1.80 - 7.00 10*3/uL [facility] Clin Pathology Abs Lymphocyte 0.45 (L) 1.20 - 4.00 10*3/uL [facility] Clin Pathology Abs Monocyte 0.71 0.00 - 0.80 10*3/uL [facility] Clin Pathology Abs Eosinophil 0.00 0.00 - 0.50 10*3/uL [facility] Clin Pathology Abs Basophil 0.08 0.00 - 0.20 10*3/uL [facility] Clin Pathology Nucleated Red 0 0 - 0 /100{WBCs} [facility] Blood Cells [facility] Pathology Specimen EDTA Whole Blood Performing Organization Address City/State/ZIP Code P amparo Number [facility] [address] [place], [place] 1321 PATHOLOGY [facility] [address] [place], [place] 132 10 Clin Pathology * XR Chest Frontal Only (06/22/2021 11:06 AM EDT) Specimen Impressions Performed At IMPRESSION: [facility] 1. Endotracheal tube with tip terminating approximately 1 cm above the magaly, recommend retraction by additional 2 to 3 cm for proper positioning. 2. Redemonstration of bilateral upper bas ilar lung scarring/atelectasis with small bilateral pleural effusions. Findings were discussed over phone with Dr. Phelan by Dr. Harris on 06/22/2021 at 11:59 AM. Narrative Performed At INDICATION: Trauma. [facility] TECHNIQUE: XR CHEST FRONTAL ONLY [id number], 06/22/2021 10:50 AM, portable, supine. COMPARISON: Chest radiograph dated 2020. FINDINGS: Endotracheal tube with tip terminating approximately 1 cm above the magaly, recommend retraction by additional 2 to 3 cm for proper positioning. Enteric tube extending below the diaphragm with tip out of the [id number]. Redemonstration of shunt catheter proje cting over the left hemithorax with tips out of the [id number]. The chest wall is unchanged. The cardiomediastinal contours are unch anged. Stable bilateral small pleural effusion s are present. Redemonstration of bilateral upper and basilar lung scarring/atelectasis. Procedure Note Interface, Received Via [employer] System - 06/22/2021 12:03 PM EDT INDICATION: Trauma. TECHNIQUE: XR CHEST FRONTAL ONLY [id number], 06/22/2021 10:50 AM, portable, supine. COMPARISON: Chest radiograph dated 05/09/2021. FINDINGS: Endotracheal tube with tip terminating approximately 1 cm above the magaly, recommend retraction by additional 2 to 3 cm for proper positioning. Enteric tube extending below the diaphragm with tip out of the [id number]. Redemonstration of shunt catheter projecting over the left hemithorax with tips out of the [id number]. The chest wall is unchanged. The cardiomediastinal contours are unchanged. Stable bilateral small pleural effusions are present. Redemonstration of bilateral upper and basilar lung scarring/atelectasis. IMPRESSION: 1. Endotracheal tube with tip terminati ng approximately 1 cm above the magaly, recommend retraction by additional 2 to 3 cm for proper positioning. 2. Redemonstration of bilateral upper b asilar lung scarring/atelectasis with small bilateral pleural effusions. Findings were discussed over phone with Dr. Phelan by Dr. Harris on 06/22/2021 at 11:59 AM. Performing Organization Address City/State/ZIP Code P amparo Number [facility] [address] [place] [address] * XR Pelvis 1-2 Views (06/22/2021 11:06 AM EDT) Specimen Impressions Performed At IMPRESSION: No acute fracture or hip maxim int dislocation. Degenerative changes as [facility] above. Narrative Performed At [facility] Pelvic radiograph INDICATION: Trauma. COMPARISON: Correlated with CT abdomen pelvis dated 07/03/2020. FINDINGS: Single portable supine view d emonstrates no evidence of acute fracture or hip joint dislocation. Visualized po rtions of bony pelvic ring are intact. Sacroiliac joint spaces are symmetric; no diastasis at the pubic symphysis. There is mild to moderate hip joint art hrosis with small well-corticated ossific density abutting the superolateral catrina in of the right acetabulum. Pelvic phleboliths and tubing overlying the lo wer abdomen and right pelvis is noted Procedure Note Interface, Received Via [employer] System - 06/22/2021 11:14 AM EDT Pelvic radiograph INDICATION: Trauma. COMPARISON: Correlated with CT abdomen pelvis dated 07/03/2020. FINDINGS: Single portable supine view demonstrates no evidence of acute fracture or hip joint dislocation. Visualized portions of bony pelvic ring are intact. Sacroiliac joint spaces are symmetric; no diastasis at the pubic symphysis. There is mild to moderate hip joint arthrosis with small well-corticated ossific density abutting the superolateral margin of the right acetabulum. Pelvic phleboliths and tubing overlying the lower abdomen and right pelvis is noted IMPRESSION: No acute fracture or hip joint dislocation. Degenerative changes as above. Performing Organization Address City/State/ZIP Code P amparo Number [facility] [address] [place] [address] documented in this encounter Visit Diagnoses Diagnosis Status epilepticus - Primary Epileptic grand mal status Sinus tachycardia Other specified cardiac dysrhythmias Person under investigation for COVID-19 History of traumatic brain injury Personal history of traumatic brain inj ury 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 Presence of cerebrospinal fluid drainag e device Fall from furniture, initial encounter Essential hypertension Unspecified essential hypertension Communicating hydrocephalus Impaired mobility and activities of virgen ly living Mechanical problems with limbs Pulmonary fibrosis Postinflammatory pulmonary fibrosis Oropharyngeal dysphagia Dysphagia, oropharyngeal phase 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 epileptic syndromes with simple partial seizures, without mention of intractabl e epilepsy Acute respiratory failure Chronic subdural hematoma Subdural hemorrhage Midline shift of brain Alcohol abuse Alcohol abuse, unspecified Acute encephalopathy Encephalopathy, unspecified documented in this encounter Administered Medications Action Date Dose Rate Site Medication Order MAR Action 06/24/2021 9:02 PM EDT 25 mg amitriptyline (ELAVIL) tablet 25 mg Given 25 mg, Oral, Nightly, First dose on Tue06/22/21 at 2200, For 30 days 25 mg Given 06/23/2021 9:20 PM EDT 25 mg Given 06/22/2021 11:29 PM EDT 06/24/2021 9:02 PM EDT 10 mg ezetimibe (ZETIA) tablet 10 mg Given 10 mg, Oral, Nightly, First dose on Tue06/22/21 at 2200, For 30 days 10 mg Given 06/23/2021 9:20 PM EDT 10 mg Given 06/22/2021 11:29 PM EDT 06/25/2021 9:27 AM EDT 1 mg folic acid (FOLVITE) tablet 1 mg Given 1 mg, Per G Tube, Daily Standard, Firs t dose on Tue06/23/21 at 0900, For 30 day s 1 mg Given 06/24/2021 9:19 AM EDT 1 mg Given 06/23/2021 9:39 AM EDT 06/25/2021 9:27 AM EDT 5,000 Units heparin (porcine) 5000 UNIT/ML injection Given 5,000 Units 5,000 Units, Subcutaneous, 2 Times Daily, First dose on Tue06/24/21 at 0900, For 30 days 5,000 Units Given 06/24/2021 9:02 PM EDT 5,000 Units Given 06/24/2021 9:19 AM EDT 06/23/2021 10:42 AM EDT 10 mg labetalol (TRANDATE) injection 10 mg New Bag 10 mg, Intravenous, Every 6 hours PRN , High Blood Pressure, Starting on Tue06/22/21 at 1342, For 30 days, If BP > 160 06/25/2021 9:28 AM EDT 500 mg levETIRAcetam (KEPPRA) tablet 500 mg Given 500 mg, Oral, 2 Times Daily, First dose (after last modification) on Tue 1 at 2200, For 30 days 500 mg Given 06/24/2021 9:02 PM EDT 500 mg Given 06/24/2021 9:19 AM EDT 06/25/2021 9:27 AM EDT 25 mg metoprolol tartrate (LOPRESSOR) tablet Given 25 mg 25 mg, Oral, 2 Times Daily, First dose on Tue06/23/21 at 2100, For 30 days 25 mg Given 06/24/2021 9:02 PM EDT 25 mg Given 06/24/2021 9:19 AM EDT 06/25/2021 9:28 AM EDT 20 mEq potassium chloride (K-DUR) dissolvable Given tablet 20 mEq 20 mEq, Oral, 2 Times Daily, First dose on Tue06/25/21 at 0900, For 30 days, Ma y be dissolved in water for patients with a G-Tube or unable to swallow. If concern for clogging G-Tube, may contac t Pharmacy to switch formulation to a powder packet. Action Date Dose Rate Site Medication Order MAR Action 06/23/2021 9:41 AM EDT 0.7 mcg/kg/hr 10.3 mL/hr dexmedetomidine (PRECEDEX) in NaCl 0.9 % New Bag infusion 4 mcg/mL 0.1-1.5 mcg/kg/hr 58.6 kg (1.465-21.975 mL/hr, rounded to 1.5-22 mL/hr), Intravenous, at 1.5-22 mL/hr, Continuous, Starting on Tue06/22/21 at 1415, For 30 days, Starting dose = 0.2 mcg/kg/hr Titrate to maintai n RASS of -1 Titrate by 0.1-0.2 mcg/kg/h r Max Dose = 1.5 mcg/kg/hr Titrate down if RASS of -3 0.7 mcg/kg/hr 10.3 mL/hr Restarted - All Meds 06/23/2021 8:19 AM EDT 0.7 mcg/kg/hr 10.3 mL/hr Rate/Dose Change 06/23/2021 1:33 AM EDT 06/23/2021 9:39 AM EDT 500 mg 400 mL/hr levETIRAcetam (KEPPRA) 500 mg in sodium New Bag chloride 100 mL (5 mg/mL) infusion (premix) 500 mg, Intravenous, at 400 mL/hr, 2 Times Daily, First dose on Tue06/22/21 at 2100, For 30 days 500 mg 400 mL/hr New Bag 06/22/2021 11:32 PM EDT 06/23/2021 7:00 PM EDT 100 mL/hr NaCl infusion 0.9 % Rate/Dose at 100 mL/hr, Intravenous, Continuous, Verify Starting on Tue06/22/21 at 1345, For 30 days 100 mL/hr Rate/Dose Change 06/23/2021 4:36 PM EDT 100 mL/hr Restarted - All Meds 06/23/2021 10:55 AM EDT 06/22/2021 2:22 PM EDT 4 mg ondansetron (ZOFRAN) injection 4 mg New Bag 4 mg, Intravenous, Once, On Tue06/22/21 at 1415, For 1 dose 06/25/2021 12:49 PM EDT 10 mEq 100 mL/hr potassium chloride 10 mEq in 100 mL IVPB New Bag (premix) 10 mEq, Intravenous, Administer over 60 Minutes, Every 1 hour, First dose on Martha 06/25/21 at 0600, For 4 doses 10 mEq 100 mL/hr New Bag 06/25/2021 10:58 AM EDT 10 mEq 100 mL/hr New Bag 06/25/2021 9:27 AM EDT documented in this encounter Active and Recently Administered Medications Times are shown in EDT. 06/24/2021 06/25/2021 Medication Order 06/23/20212101 (Given - Provider: Jes Faulkner RN) 2199 (Due) amitriptyline (ELAVIL) tablet 25 mg 0 (Given - 25 mg, Oral, Nightly, First dose on Tue Provider: Jose Mclean 06/22/21 at 2200, For 30 days CHANTE Faulkner) 2101 (Given - Provider: Jes Faulkner RN) 2199 (Due) ezetimibe (ZETIA) tablet 10 mg 0 (Given - 10 mg, Oral, Nightly, First dose on Tue Provider: Jose Mclean 06/22/21 at 2200, For 30 days CHANTE Faulkner) 918 (Given - Provider: Becky Cowan RN) 926 (Given - Provider: Becky Salamanca RN) folic acid (FOLVITE) tablet 1 mg 0939 (Given - 1 mg, Per G Tube, Daily Standard, First Provider: Arcadio garcia dose on Tue06/23/21 at 0900, For 30 days CHANTE Fajardo - Comment: via og tube) 918 (Given - Provider: Becky Cowan RN)2101 (Given - Provider: Jes Faulkner RN) 926 (Given - Provider: Becky Salamanca RN)2099 (Due) heparin (porcine) 5000 UNIT/ML injectio n 5,000 Units 5,000 Units, Subcutaneous, 2 Times Daily, First dose on Tue06/24/21 at 0900, For 30 days levETIRAcetam (KEPPRA) 500 mg in sodium 0939 (New Ba g - chloride 100 mL (5 mg/mL) infusion Provider: Rufina mohamud (premix) (CANCELED) Scotty RN)1000 500 mg, Intravenous, at 400 mL/hr, 2 (Stopped - All Meds Times Daily, First dose on Tue06/22/21 - Provider: Arcadio garcia at 2100, For 30 days Scotty RN)2102 (Not Given - Provider: Jes Faulkner RN - Reason: Loss of IV access) 918 (Given - Provider: Becky Cowan RN)2101 (Given - Provider: Jes Faulkner RN) 927 (Given - Provider: Becky Salamanca RN)2099 (Due) levETIRAcetam (KEPPRA) tablet 500 mg 2201 (Given - 500 mg, Oral, 2 Times Daily, First dose Provider: Jose Mclean (after last modification) on Tue06/23/21 CHANTE Faulkner) at 2200, For 30 days 918 (Given - Provider: Becky Cowan RN)2101 (Given - Provider: Jes Faulkner RN) 926 (Given - Provider: Becky Salamanca RN)2099 (Due) metoprolol tartrate (LOPRESSOR) tablet 2119 (Given - 25 mg Provider: Jes Mclean 25 mg, Oral, 2 Times Daily, First dose CHANTE Faulkner) on Tue06/23/21 at 2100, For 30 days 927 (Given - Provider: Becky Salamanca RN)2099 (Due) potassium chloride (K-DUR) dissolvable tablet 20 mEq 20 mEq, Oral, 2 Times Daily, First dose on Tue06/25/21 at 0900, For 30 days, Ma y be dissolved in water for patients with a G-Tube or unable to swallow. If concern for clogging G-Tube, may contac t Pharmacy to switch formulation to a powder packet. 0621 (New Bag - Provider: SHELLEY LUU) 0624 (Rate/Dose Verify - Provider: Jenn Doyle RN)06 (Rate/Dose Verify - Provider: Jenn Doyle RN)09 (New Bag - Provider: Becky Salamanca RN)1058 (New Bag - Provider: Becky Salamanca RN)1249 (New Bag - Provider: Becky Salamanca RN) potassium chloride 10 mEq in 100 mL IVP B (premix) (COMPLETED) 10 mEq, Intravenous, Administer over 60 Minutes, Every 1 hour, First dose on Martha 06/25/21 at 0600, For 4 doses 1123 (Not Given - Provider: Becky Murguia RN - Reason: Medication not available) 1056 (Not Given - Provider: Becky kaufman, CHANTE - Reason: Medication not available - Comment: this medication is not showing up in pyxis. unable to obtain dose.) thiamine (B-1) tablet 100 mg 0944 (Not Given - 100 mg, Oral, Daily Standard, First Provider: Vanessa workman dose on Tue06/23/21 at 0900, For 30 CHANTE Fajardo - Vista son: doses Medication not available) 06/24/2021 06/25/2021 Medication Order 06/23/2021 dexmedetomidine (PRECEDEX) in NaCl 0.9 % 0034 (Pause d - infusion 4 mcg/mL (CANCELED) Provider: Maureen Booker 0.1-1.5 mcg/kg/hr CHANTE Witt)0037 58.6 kg (1.465-21.975 mL/hr, rounded to (Paused - Pr ovider: 1.5-22 mL/hr), Intravenous, at 1.5-22 Maureen Witt, mL/hr, Continuous, Starting on Tue RN)0133 (Rate/Dos e 06/22/21 at 1415, For 30 days, Starting Change - Prov ider: dose = 0.2 mcg/kg/hr Titrate to maintain Maureen Ruiz ne, RASS of -1 Titrate by 0.1-0.2 mcg/kg/hr RN)0815 (Pa used - Max Dose = 1.5 mcg/kg/hr Titrate Provider: Maureen Booker down if RASS of -3 CHANTE Witt)0819 (Restarted - All Meds - Provider: Maureen Witt RN)0941 (Paused - Provider: Maureen Witt RN)0941 (New Bag - Provider: Radha Fajardo RN)1138 (Paused - Provider: Maureen Witt RN)1157 (Stopped - All Meds - Provider: Maureen Witt RN)1159 (Paused - Provider: Radha Fajardo RN) NaCl infusion 0.9 % (CANCELED) 0815 (Paused - at 100 mL/hr, Intravenous, Continuous, Provider: Machelle Booker Starting on 06/22/21 at 1345, For 30 CHANTE Witt)0 819 days (Restarted - All Meds - Provider: Maureen Witt RN)0858 (Rate/Dose Change - Provider: Maureen Witt RN)0900 (Rate/Dose Change - Provider: Maureen Witt RN)0939 (Paused - Provider: Maureen Witt RN)0954 (Restarted - All Meds - Provider: Maureen Witt RN)1015 (Rate/Dose Change - Provider: Maureen Witt RN)1041 (Paused - Provider: Maureen Witt RN)1041 (New Bag - Provider: Radha Fajardo RN)1045 (Paused - Provider: Maureen Witt RN)1055 (Restarted - All Meds - Provider: Maureen Witt RN)1635 (Paused - Provider: Maureen Witt RN)1635 (Paused - Provider: Maureen Witt RN)1636 (Rate/Dose Change - Provider: Maureen Witt RN)1900 (Rate/Dose Verify - Provider: Marueen Witt RN)2057 (Paused - Provider: Jes Faulkner RN) 06/24/2021 06/25/2021 Medication Order 06/23/2021 acetaminophen (TYLENOL) tablet 650 mg 650 mg, Oral, Every 4 hours PRN, Mild Pain (Pain Scale Score 1-3), Starting o n 06/22/21 at 1342, For 30 days, Maximum daily dose of acetaminophen is 3,000 mg from all sources in 24 hours. labetalol (TRANDATE) injection 10 mg 1042 (New Jose - 10 mg, Intravenous, Every 6 hours PRN, Provider: Arcadio garcia High Blood Pressure, Starting on Mon CHANTE Fajardo) 06/22/21 at 1342, For 30 days, If BP > 160 documented in this encounter Additional Health Concerns Last Indicated Resolved Time Infection Onset Date 06/22/2021 06/22/2021 9:14 PM EDT Respiratory Rule-Out 06/22/2021 documented as of this encounter
--- OUTSIDE RECORDS SUMMARY | 2021-09-10 05:46 | CCD ---
Author JOHN Stoner Autogen erated Organization [facility] Address Unknown Phone Unavailable Care Team Providers Care Rv Detailer Name Role Phone Leigh Wray Admphys PLEASE READ PROHIBITION ON RE-DISCLOSURE "This information [...] Date/ Time Discharge Date/Time Center of Treatment [place] Alcohol use disorder, moderate TueJun 25 15:20:00 EDT 2020 Immunizations No Known Immunizations Lab Results No Known Laboratory Results Medications No Known Medication Information Problems No Known Problems Procedures No Known Procedures Social History Social History Observation Description Jeferson e Smoking Status Current Every Da y Smoker TueJun 25 08:00:00 EDT 2020 Sex Male TueSep 03 07:00:00 EST 1965 Vital Signs No Known Vitals
--- OUTSIDE RECORDS SUMMARY | 2021-09-10 05:52 | CCD ---
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 Name Role Phone Homer rBannon Unavailable Homer Brannon Brianna Unavailable Homer Brannon Brianna Unavailable Homer Brannon Brianna Unavailable Homer Brannon Brianna Unavailable SYSTEM IN, NOT IN PROVIDER Unavailable Unavailable Trickey, J Neda PA Unavailable Unavailable Trickey, J Neda PA Unavailable Unavailable Trickey, J Neda PA Unavailable Unavailable Trickey, J Neda PA Unavailable Unavailable Trickey, J Neda PA Unavailable Unavailable Trickey, J Neda PA Unavailable Unavailable Trickey, J Neda PA Unavailable Unavailable Trickey, J Neda PA Unavailable Unavailable Trickey, J Neda PA Unavailable Unavailable Trickey, J Neda PA Unavailable Unavailable Trickey, J Neda PA Unavailable Unavailable Trickey, J Neda PA Unavailable Unavailable Trickey, J Neda PA Unavailable Unavailable Trickey, J Neda PA Unavailable Unavailable Trickey, J Neda PA Unavailable Unavailable Trickey, J Neda PA Unavailable Unavailable Trickey, J Neda PA Unavailable Unavailable Trickey, J Neda PA Unavailable Unavailable Trickey, J Neda PA Unavailable Unavailable Trickey, J Neda PA Unavailable Unavailable Trickey, J Neda PA Unavailable Unavailable Trickey, J Neda PA Unavailable Unavailable Trickey, J Neda PA Unavailable Unavailable Trickey, J Neda PA Unavailable Unavailable Trickey, J Neda PA Unavailable Unavailable Trickey, J Neda PA Unavailable Unavailable Trickey, J Neda PA Unavailable Unavailable Trickey, J Neda PA Unavailable Unavailable Trickey, J Neda PA Unavailable Unavailable Trickey, J Neda PA Unavailable Unavailable Trickey, J Neda PA Unavailable Unavailable Trickey, J Neda PA Unavailable Unavailable Trickey, J Neda PA Unavailable Unavailable Trickey, J Neda PA Unavailable Unavailable Trickey, J Neda PA Unavailable Unavailable Trickey, J Neda PA Unavailable Unavailable Trickey, J Neda PA Unavailable Unavailable Trickey, J Neda PA Unavailable Unavailable Trickey, J Neda PA Unavailable Unavailable Trickey, J Neda PA Unavailable Unavailable Trickey, J Neda PA Unavailable Unavailable Trickey, J Neda PA Unavailable Unavailable Trickey, J Neda PA Unavailable Unavailable Trickey, J Neda PA Unavailable Unavailable Trickey, J Neda PA Unavailable Unavailable Trickey, J Neda PA Unavailable Unavailable Trickey, J Neda PA Unavailable Unavailable Trickey, J Neda PA Unavailable Unavailable Trickey, J Neda PA Unavailable Unavailable Radha Castro MD Unavailable Unavailable Radha Castro MD Unavailable Unavailable Radha Castro MD Unavailable Unavailable Radha Castro MD Unavailable Unavailable Radha Castro MD Unavailable Unavailable Radha Castro MD Unavailable Unavailable Luzma Galeano Unavailable + Luzma Galeano Unavailable + Luzma Galeano Unavailable + Deangelo Renee MD Unavailable + Deangelo Renee MD Unavailable + Deangelo Renee MD Unavailable + Deangelo Renee MD Unavailable + Deangelo Renee MD Unavailable + Deangelo Renee MD Unavailable + Deangelo Renee MD Unavailable + Ade Lima Unavailable SOWMYA HANSEN MD Unavailable Unavailable SOWMYA HANSEN MD Unavailable Unavailable SOWMYA HANSEN MD Unavailable Unavailable SOWMYA HANSEN MD Unavailable Unavailable Ade LIMA Unavailable Unavailable Fish, B Hugh PAUL Unavailable Unavailable Fish, B Hugh PAUL Unavailable Unavailable Fish, B Hugh PAUL Unavailable Unavailable Fish, B Hugh PAUL Unavailable Unavailable Fish, B Hugh PAUL Unavailable Unavailable Fish, B Hugh PAUL Unavailable Unavailable Fish, B Hugh PAUL Unavailable Unavailable Fish, B Hugh PAUL Unavailable Unavailable Fish, B Hugh PAUL Unavailable Unavailable Fish, B Hugh PAUL Unavailable Unavailable Fish, B Hugh PAUL Unavailable Unavailable Fish, B Hugh PAUL Unavailable Unavailable Fish, B Hugh PAUL Unavailable Unavailable Fish, B Hugh PAUL Unavailable Unavailable Fish, B Hugh PAUL Unavailable Unavailable Fish, B Hugh PAUL Unavailable Unavailable Fish, B Hugh PAUL Unavailable Unavailable Fish, B Hugh PAUL Unavailable Unavailable Fish, B Hugh PAUL Unavailable Unavailable Fish, B Hugh PAUL Unavailable Unavailable Fish, B Hugh PAUL Unavailable Unavailable Fish, B Hugh PAUL Unavailable Unavailable Fish, B Hugh PAUL Unavailable Unavailable Fish, B Hugh PAUL Unavailable Unavailable Fish, B Hugh PAUL Unavailable Unavailable Fish, B Hugh PAUL Unavailable Unavailable Fish, B Hugh PAUL Unavailable Unavailable Fish, B Hugh PAUL Unavailable Unavailable Fish, B Hugh PAUL Unavailable Unavailable Fish, B Hugh PAUL Unavailable Unavailable Fish, B Hugh PAUL Unavailable Unavailable Fish, B Hugh PAUL Unavailable Unavailable Fish, B Hugh PAUL Unavailable Unavailable Fish, B Hugh PAUL Unavailable Unavailable Fish, B Hugh PAUL Unavailable Unavailable Fish, B Hugh PAUL Unavailable Unavailable Fish, B Hugh PAUL Unavailable Unavailable Fish, B Hugh PAUL Unavailable Unavailable Fish, B Hugh APUL Unavailable Unavailable Fish, B Hugh PAUL Unavailable Unavailable Fish, B Hugh PAUL Unavailable Unavailable Fish, B Hugh PAUL Unavailable Unavailable Fish, B Hugh PAUL Unavailable Unavailable Fish, B Hugh PAUL Unavailable Unavailable Fish, B Hugh PAUL Unavailable Unavailable Fish, B Hugh PAUL Unavailable Unavailable Fish, B Hugh PAUL Unavailable Unavailable Fish, B Hugh PAUL Unavailable Unavailable Fish, B Hugh PAUL Unavailable Unavailable Fish, B Hugh PAUL Unavailable Unavailable Fish, B Hugh PAUL Unavailable Unavailable Fish, B Hugh PAUL Unavailable Unavailable Fish, B Hugh PAUL Unavailable Unavailable Fish, B Hugh PAUL Unavailable Unavailable Fish, B Hugh PAUL Unavailable Unavailable Fish, B Hugh PAUL Unavailable Unavailable Fish, B Hugh PAUL Unavailable Unavailable CHABRASHVILI, TINATIN Unavailable Unavailable MCELHERAN, NEEL PA Unavailable Unavailable MCELHERAN, NEEL PA Unavailable Unavailable MCELHERAN, NEEL PA Unavailable Unavailable MCELHERAN, NEEL PA Unavailable Unavailable MCELHERAN, NEEL PA Unavailable Unavailable MCELHERAN, NEEL PA Unavailable Unavailable MCELHERAN, NEEL PA Unavailable Unavailable MCELHERAN, NEEL PA Unavailable Unavailable MCELHERAN, NEEL PA Unavailable Unavailable MCELHERAN, NEEL PA Unavailable Unavailable MCELHERAN, NEEL PA Unavailable Unavailable MCELHERAN, NEEL PA Unavailable Unavailable MCELHERAN, NEEL PA Unavailable Unavailable MCELHERAN, NEEL PA Unavailable Unavailable MCELHERAN, NEEL PA Unavailable Unavailable MCELHERAN, NEEL PA Unavailable Unavailable MCELHERAN, NEEL PA Unavailable Unavailable MCELHERAN, NEEL PA Unavailable Unavailable MCELHERAN, NEEL PA Unavailable Unavailable MCELHERAN, NEEL PA Unavailable Unavailable MCELHERAN, NEEL PA Unavailable Unavailable MCELHERAN, NEEL PA Unavailable Unavailable MCELHERAN, NEEL PA Unavailable Unavailable MCELHERAN, NEEL PA Unavailable Unavailable MCELHERAN, NEEL PA Unavailable Unavailable MCELHERAN, NEEL PA Unavailable Unavailable MCELHERAN, NEEL PA Unavailable Unavailable MCELHERAN, NEEL PA Unavailable Unavailable MCELHERAN, NEEL PA Unavailable Unavailable Deyvi Sebastian MD Unavailable Unavailable Deyvi Sebastian MD Unavailable Unavailable Deyvi Sebastian MD Unavailable Unavailable Deyvi Sebastian MD Unavailable Unavailable Deyvi Sebastian MD Unavailable Unavailable Deyvi Sebastian MD Unavailable Unavailable Deyvi Sebastian MD Unavailable Unavailable Deyvi Sebastian MD Unavailable Unavailable Deyvi Sebastian MD Unavailable Unavailable Deyvi Sebastian MD Unavailable Unavailable Deyvi Sebastian MD Unavailable Unavailable Deyvi Sebastian MD Unavailable Unavailable Deyvi Sebastian MD Unavailable Unavailable Deyvi Sebastian MD Unavailable Unavailable Deyvi Sebastian MD Unavailable Unavailable Deyvi Sebastian MD Unavailable Unavailable Deyvi Sebastian MD Unavailable Unavailable Deyvi Sebastian MD Unavailable Unavailable Deyvi Sebastian MD Unavailable Unavailable Deyvi Sebastian MD Unavailable Unavailable Homer ERVIN MD Unavailable Unavailable Homer ERVIN MD Unavailable Unavailable SYSTEM, NOT IN PROVIDER Unavailable Unavailable EMBER [id number], E TU [id number] Unavailable Unavailabl e EMBER [id number], E TU [id number] Unavailable Unavailabl e EMBER [id number], Deangelo TU [id number] Unavailable Unavailabl e Jan Miramontes Unavailable Unavailable Moose PAUL, Arcadio Barajas MD Unavailable Moose PAUL, Arcadio Barajas MD Unavailable Moose PAUL, Arcadio Barajas MD Unavailable Moose PAUL, Arcadio Barajas MD Unavailable STACK, M DIVYA DO Unavailable Unavailable STACK, M DIVYA DO Unavailable Unavailable STACK, M DIVYA DO Unavailable Unavailable STACK, M DIVYA DO Unavailable Unavailable STACK, M DIVYA DO Unavailable Unavailable STACK, M DIVYA DO Unavailable Unavailable STACK, M DIVYA DO Unavailable Unavailable STACK, M DIVYA DO Unavailable Unavailable STACK, M DIVYA DO Unavailable Unavailable Charisma NOLEN Unavailable Unavailable Charisma LEDEZMA Unavailable Unavailable Deangelo SABA MD Unavailable Unavailable Deangelo SABA MD Unavailable Unavailable Deangelo SABA MD Unavailable Unavailable Deangelo SABA MD Unavailable Unavailable Deangelo SABA MD Unavailable Unavailable Deangelo SABA MD Unavailable Unavailable Deangelo SABA MD Unavailable Unavailable Deangelo SABA MD Unavailable Unavailable Deangelo SABA MD Unavailable Unavailable Deangelo SABA MD Unavailable Unavailable Deangelo SABA MD Unavailable Unavailable Deangelo SABA MD Unavailable Unavailable Deangelo SABA MD Unavailable Unavailable Deangelo SABA MD Unavailable Unavailable Deangelo SABA MD Unavailable Unavailable Deangelo SABA MD Unavailable Unavailable Deangelo SABA MD Unavailable Unavailable Deangelo SABA MD Unavailable Unavailable Deangelo SABA MD Unavailable Unavailable Deangelo SABA MD Unavailable Unavailable Deangelo SABA MD Unavailable Unavailable Deangelo SABA MD Unavailable Unavailable Deangelo SABA MD Unavailable Unavailable Deangelo SABA MD Unavailable Unavailable Deangelo SABA MD Unavailable Unavailable Deangelo SABA MD Unavailable Unavailable Deangelo SABA MD Unavailable Unavailable Deangelo SABA MD Unavailable Unavailable Deangelo SABA MD Unavailable Unavailable Deangelo SABA MD Unavailable Unavailable Deangelo SABA MD Unavailable Unavailable Deangelo SABA MD Unavailable Unavailable Deangelo SABA MD Unavailable Unavailable Deangelo SABA MD Unavailable Unavailable Deangelo SABA MD Unavailable Unavailable Deangelo SABA MD Unavailable Unavailable Deangelo SABA MD Unavailable Unavailable Deangelo SABA MD Unavailable Unavailable Deangelo SABA MD Unavailable Unavailable SABA, E TRE MD Unavailable Unavailable Deangelo SABA MD Unavailable Unavailable Deangelo SABA MD Unavailable Unavailable Deangelo SABA MD Unavailable Unavailable Deangelo SABA MD Unavailable Unavailable Deangelo SABA MD Unavailable Unavailable Deangelo SABA MD Unavailable Unavailable Deangelo SABA MD Unavailable Unavailable Deangelo SABA MD Unavailable Unavailable Deangelo SABA MD Unavailable Unavailable Deangelo SABA MD Unavailable Unavailable Deangelo SABA MD Unavailable Unavailable Deangelo SABA MD Unavailable Unavailable Deangelo SABA MD Unavailable Unavailable Deangelo SABA MD Unavailable Unavailable Deangelo SABA MD Unavailable Unavailable FaizaAisha MD Unavailable Unavailabl e Faiza, Aisha Raymondius Gene Unavailable Unavailabl e FaizaAishaius Gene Unavailable Unavailabl e Faiza, Aisha Raymondius Gene Unavailable Unavailabl e FaizaAishaius Gene Unavailable Unavailabl e Faiza, Aisha Raymondius Gene Unavailable Unavailabl e FaizaAishaius Gene Unavailable Unavailabl e FaizaAishaius Gene Unavailable Unavailabl e Faiza, Aisha Raymondius Gene Unavailable Unavailabl e Faiza, Aisha Raymondius Gene Unavailable Unavailabl e Faiza, Aisha Raymondius Gene Unavailable Unavailabl e Faiza, Aisha Raymondius Gene Unavailable Unavailabl e Faiza, Aisha Raymondius Gene Unavailable Unavailabl e Faiza, Aisha Raymondius Gene Unavailable Unavailabl e FaizaAishaius Gene Unavailable Unavailabl e FaizaAishaius Gene Unavailable Unavailabl e FaizaAisha Gene Unavailable Unavailabl e FaizaAishaius Gene Unavailable Unavailabl e Faiza, Aisha Raymondius Gene Unavailable Unavailabl e FaizaAishaius Gene Unavailable Unavailabl e Faiza, Aisha Raymondius Gene Unavailable Unavailabl e FaizaAishaius Gene Unavailable Unavailabl e FaizaAishaius Gene Unavailable Unavailabl e Faiza, Aisha Raymondius Gene Unavailable Unavailabl e Faiza, Aisha Raymondius Gene Unavailable Unavailabl e FaizaAishaius Gene Unavailable Unavailabl e FaizaAishaius Gene Unavailable Unavailabl e FaizaAishaius Gene Unavailable Unavailabl e FaizaAishaius Gene Unavailable Unavailabl Aisha Sharp MD Unavailable Unavailabl e Aisha Kendall MD Unavailable Unavailabl e MARTI VÍCTOR Unavailable Unavailable CULHEATH DE JESUS MD Unavailable Unavailable CULEBHEATH MOREL MD Unavailable Unavailable CULEBRASHEATH MD Unavailable Unavailable CULEBRASHEATH MD Unavailable Unavailable CULEBRASHEATH MD Unavailable Unavailable CULEBRASHEATH MD Unavailable Unavailable CULEBHEATH MOREL MD Unavailable Unavailable CULEBRASHEATH MD Unavailable Unavailable CULEBRASHEATH MD Unavailable Unavailable CULEBRASHEATH MD Unavailable Unavailable CULEBRASHEATH MD Unavailable Unavailable CULEBRASHEATH MD Unavailable Unavailable CULEBRASHEATH MD Unavailable Unavailable CULEBRASHEATH MD Unavailable Unavailable CULEBRASHEATH MD Unavailable Unavailable CULEBRASHEATH MD Unavailable Unavailable CULEBRASHEATH MD Unavailable Unavailable CULEBHEATH MOREL MD Unavailable Unavailable CULEBRASHEATH MD Unavailable Unavailable CULEBHEATH MOREL MD Unavailable Unavailable CULEBHEATH MOREL MD Unavailable Unavailable CULEBHEATH MOREL MD Unavailable Unavailable CULEBHEATH MOREL MD Unavailable Unavailable CULEBHEATH MOREL MD Unavailable Unavailable CULEBHEATH MOREL MD Unavailable Unavailable CULEBRASHEATH MD Unavailable Unavailable CULEBHEATH MOREL MD Unavailable Unavailable CULEBRASHEATH MD Unavailable Unavailable CULEBHEATH MOREL MD Unavailable Unavailable CULEBHEATH MOREL MD Unavailable Unavailable RADHA CASTRO MD Unavailable Unavailable RADHA CASTRO MD Unavailable Unavailable RADHA CASTRO MD Unavailable Unavailable RADHA CASTRO MD Unavailable Unavailable RADHA CASTRO MD Unavailable Unavailable Arcadio DURANT MD Unavailable Unavailable Arcadio DURANT MD Unavailable Unavailable Arcadio DURANT MD Unavailable Unavailable Arcadio DURANT MD Unavailable Unavailable Arcadio DURANT MD Unavailable Unavailable Arcadio DURANT MD Unavailable Unavailable Arcadio DURANT MD Unavailable Unavailable Arcadio DURANT MD Unavailable Unavailable Arcadio DURANT MD Unavailable Unavailable Arcadio DURANT MD Unavailable Unavailable Arcadio DURANT MD Unavailable Unavailable Arcadio DURANT MD Unavailable Unavailable Arcadio DURANT MD Unavailable Unavailable Arcadio DURANT MD Unavailable Unavailable Arcadio DURANT MD Unavailable Unavailable Arcadio DURANT MD Unavailable Unavailable BEUTArcadio LARSEN MD Unavailable Unavailable BEUTLER, M ANKIT MD Unavailable Unavailable BEUTLER, Arcadio PHAM MD Unavailable Unavailable BEUTLER, Arcadio PHAM MD Unavailable Unavailable BEUTLER, Arcadio PHAM MD Unavailable Unavailable BEUTLER, Arcadio PHAM MD Unavailable Unavailable BEUTLER, Arcadio PHAM MD Unavailable Unavailable BEUTLER, Arcadio PHAM MD Unavailable Unavailable BEUTLER, M ANKIT MD Unavailable Unavailable Rechlin, P Seth DO Unavailable Unavailable Rechlin, P Seth DO Unavailable Unavailable Rechlin, P Seth DO Unavailable Unavailable Rechlin, P Seth DO Unavailable Unavailable Rechlin, P Seth DO Unavailable Unavailable Rechlin, P Seth DO Unavailable Unavailable Rechlin, P Seth DO Unavailable Unavailable Rechlin, P Seth DO Unavailable Unavailable Rechlin, P Seth DO Unavailable Unavailable Rechlin, P Seth DO Unavailable Unavailable Rechlin, P Seth DO Unavailable Unavailable Rechlin, P Seth DO Unavailable Unavailable Rechlin, P Seth DO Unavailable Unavailable Rechlin, P Seth DO Unavailable Unavailable Rechlin, P Seth DO Unavailable Unavailable Rechlin, P Seth DO Unavailable Unavailable Rechlin, P Seth DO Unavailable Unavailable Rechlin, P Seth DO Unavailable Unavailable Rechlin, P Seth DO Unavailable Unavailable Rechlin, P Seth DO Unavailable Unavailable Rechlin, P Seth DO Unavailable Unavailable Rechlin, P Seth DO Unavailable Unavailable Rechlin, P Seth DO Unavailable Unavailable Rechlin, P Seth DO Unavailable Unavailable Rechlin, P Seth DO Unavailable Unavailable Rechlin, P Seth DO Unavailable Unavailable Rechlin, P Seth DO Unavailable Unavailable Rechlin, P Seth DO Unavailable Unavailable Rechlin, P Seth DO Unavailable Unavailable Rechlin, P Seth DO Unavailable Unavailable Rechlin, P Seth DO Unavailable Unavailable Rechlin, P Seth DO Unavailable Unavailable Rechlin, P Seth DO Unavailable Unavailable Rechlin, P Seth DO Unavailable Unavailable Rechlin, P Seth DO Unavailable Unavailable Rechlin, P Seth DO Unavailable Unavailable Rechlin, P Seth DO Unavailable Unavailable Rechlin, P Seth DO Unavailable Unavailable Rechlin, P Seth DO Unavailable Unavailable Rechlin, P Seth DO Unavailable Unavailable Rechlin, P Seth DO Unavailable Unavailable Rechlin, P Seth DO Unavailable Unavailable Rechlin, P Seth DO Unavailable Unavailable Rechlin, P Seth DO Unavailable Unavailable Rechlin, P Seth DO Unavailable Unavailable Rechlin, P Seth DO Unavailable Unavailable Rechlin, P Seth DO Unavailable Unavailable Rechlin, P Seth DO Unavailable Unavailable Rechlin, P Seth DO Unavailable Unavailable Rechlin, P Seth DO Unavailable Unavailable Rechlin, P Seth DO Unavailable Unavailable PROTAS, A ALEXIS Unavailable Unavailable [place] Antonio, L Linette DO Unavailable Unavailable Roseanne Antonio, L Linette DO Unavailable Unavailable Roseanne Antonio, L Linette DO Unavailable Unavailable Roseanne Antonio, L Linette DO Unavailable Unavailable [place] Antonio, L Linette DO Unavailable Unavailable [place] Antonio, L Linette DO Unavailable Unavailable [place] Antonio, L Linette DO Unavailable Unavailable BOBBI RUTH MD Unavailable Unavailable BOBBI RUTH MD Unavailable Unavailable BOBBI RUTH MD Unavailable Unavailable BOBBI RUTH MD Unavailable Unavailable BOBBI RUTH MD Unavailable Unavailable BOBBI RUTH MD Unavailable Unavailable BOBBI RUTH MD Unavailable Unavailable BOBBI RUTH MD Unavailable Unavailable BOBBI RUTH MD Unavailable Unavailable BOBBI RUTH MD Unavailable Unavailable BOBBI RUTH MD Unavailable Unavailable BOBBI RUTH MD Unavailable Unavailable BOBBI RUTH MD Unavailable Unavailable BOBBI RUTH MD Unavailable Unavailable BOBBI RUTH MD Unavailable Unavailable BOBBI RUTH MD Unavailable Unavailable BOBBI RUTH MD Unavailable Unavailable BOBBI RUTH MD Unavailable Unavailable BOBBI RUTH MD Unavailable Unavailable BOBBI RUTH MD Unavailable Unavailable BOBBI RUTH MD Unavailable Unavailable Symenow, Aleksandra Nell PA Unavailable Unavailable Symenow, Aleksandra Nell PA Unavailable Unavailable Symenow, Aleksandra Nell PA Unavailable Unavailable Symenow, Aleksandra Nell PA Unavailable Unavailable Symenow, Aleksandra Nell PA Unavailable Unavailable Symenow, Aleksandra Nell PA Unavailable Unavailable Symenow, Aleksandra Nell PA Unavailable Unavailable Symenow, Aleksandra Nell PA Unavailable Unavailable Symenow, Aleksandra Nell PA Unavailable Unavailable Symenow, Aleksandra Nell PA Unavailable Unavailable Symenow, Aleksandra Nell PA Unavailable Unavailable Symenow, Aleksandra Nell PA Unavailable Unavailable Symenow, Aleksandra Nell PA Unavailable Unavailable Symenow, Aleksandra Nell PA Unavailable Unavailable Symenow, Aleksandra Nell PA Unavailable Unavailable Symenow, Aleksandra Nell PA Unavailable Unavailable Symenow, Aleksandra Nell PA Unavailable Unavailable Symenow, Aleksandra Nell PA Unavailable Unavailable Symenow, Aleksandra Nell PA Unavailable Unavailable Symenow, Aleksandra Nell PA Unavailable Unavailable Symenow, Aleksandra Nell PA Unavailable Unavailable Symenow, Aleksandra Nell PA Unavailable Unavailable Symenow, Aleksandra Nell PA Unavailable Unavailable Symenow, Aleksandra Nell PA Unavailable Unavailable Symenow, Aleksandra Nell PA Unavailable Unavailable Symenow, Aleksandra Nell PA Unavailable Unavailable Symenow, Aleksandra Nell PA Unavailable Unavailable Symenow, Aleksandra Nell PA Unavailable Unavailable Symenow, Aleksandra Nell PA Unavailable Unavailable Symenow, Aleksandra Nell PA Unavailable Unavailable Symenow, Aleksandra Nell PA Unavailable Unavailable Symenow, Aleksandra Nell PA Unavailable Unavailable Symenow, Aleksandra Nell PA Unavailable Unavailable Symenow, Aleksandra Nell PA Unavailable Unavailable Stuck, K Angelina PA Unavailable Unavailable Stuck, K Angelina PA Unavailable Unavailable Stuck, K Angelina PA Unavailable Unavailable Stuck, K Angelina PA Unavailable Unavailable Stuck, K Angelina PA Unavailable Unavailable Stuck, K Angelina PA Unavailable Unavailable Stuck, K Angelina PA Unavailable Unavailable Stuck, K Angelina PA Unavailable Unavailable Stuck, K Angelina PA Unavailable Unavailable Stuck, K Angelina PA Unavailable Unavailable Stuck, K Angelina PA Unavailable Unavailable Stuck, K Angelina PA Unavailable Unavailable Stuck, K Angelina PA Unavailable Unavailable Stuck, K Angelina PA Unavailable Unavailable Stuck, K Angelina PA Unavailable Unavailable Stuck, K Angelina PA Unavailable Unavailable Stuck, K Angelina PA Unavailable Unavailable Stuck, K Angelina PA Unavailable Unavailable Stuck, K Angelina PA Unavailable Unavailable Stuck, K Angelina PA Unavailable Unavailable Stuck, K Angelina PA Unavailable Unavailable Stuck, K Angelina PA Unavailable Unavailable Stuck, K Angelina PA Unavailable Unavailable Stuck, K Angelina PA Unavailable Unavailable Stuck, K Angelina PA Unavailable Unavailable Stuck, K Angelina PA Unavailable Unavailable Stuck, K Angelina PA Unavailable Unavailable Stuck, K Angelina PA Unavailable Unavailable Stuck, K Angelina PA Unavailable Unavailable Stuck, K Angelina PA Unavailable Unavailable Stuck, K Angelina PA Unavailable Unavailable Stuck, K Angelina PA Unavailable Unavailable Stuck, K Angelina PA Unavailable Unavailable Stuck, K Angelina PA Unavailable Unavailable Stuck, K Angelina PA Unavailable Unavailable Stuck, K Angelina PA Unavailable Unavailable Stuck, K Agnelina PA Unavailable Unavailable Stuck, K Angelina PA Unavailable Unavailable Stuck, K Angelina PA Unavailable Unavailable Stuck, K Angelina PA Unavailable Unavailable Stuck, K Angelina PA Unavailable Unavailable Stuck, K Angelina PA Unavailable Unavailable Elvia Medina MD Unavailable [email or web address] Elvia Medina MD Unavailable [email or web address] Elvia Medina MD [email or web address] [email or web address] Marie Alba MD Unavailable Unavailable Marie Alba MD Unavailable Unavailable Marie Alba MD Unavailable Unavailable Marie Alba MD Unavailable Unavailable Marie Alba MD Unavailable Unavailable Marie Alba MD Unavailable Unavailable Marie Alba MD Unavailable Unavailable Marie Alba MD Unavailable Unavailable Marie Alba MD Unavailable Unavailable Marie Alba MD Unavailable Unavailable Marie Alba MD Unavailable Unavailable Marie Alba MD Unavailable Unavailable Marie Alba MD Unavailable Unavailable Marie Alba MD Unavailable Unavailable Marie Alba MD Unavailable Unavailable Marie Alba MD Unavailable Unavailable Marie Alba MD Unavailable Unavailable Homer BRANNON MD Unavailable Unavailable Homer BRANNON MD Unavailable Unavailable Homer BRANNON MD Unavailable Unavailable Homer BRANNON MD Unavailable Unavailable Homer BRANNON MD Unavailable Unavailable Luzma KHAN . Unavailable Unavailable Otite, Jd Fadar Unavailable Unavailable Otite, Jd Fadar Unavailable Unavailable Otite, Jd Fadar Unavailable Unavailable Re-disclosure Warning The records that you are about to access may contain information from federally-assisted alcohol or drug abuse programs. If such information is present, then the following federally mandated warning applies: This information has been disclosed to you from records protected by federal confidentiality rules (42 CFR part 2). The federal rules prohibit you from making any further [...] or prosecute any alcohol or drug abuse patient.The records that you are about to access may contain highly sensitive health information, the redisclosure of which is protected by Article 27-F of the [facility] Public Health law. If you continue you may have access to information: Regarding HIV / AIDS; Provided by facilities licensed or operated by the [facility] Office of Mental Health; or Provided by the [facility] Office for People With Developmental Disabilities. If such information is present, then the following [facility] mandated warning applies: This information has been disclosed to you from confidential records which are protected by state law. State law prohibits you from making any further disclosure of this information without the specific written consent of the person to whom it pertains, or as otherwise permitted by law. Any unauthorized further disclosure in violation of state law may result in a fine or assisted sentence or both. A general authorization for the release of medical or other information is NOT sufficient authorization for further disc losure. Family History Family Member Name Family Member Gender Family Member Status Date o f Status Description Data Source(s) Unknown Unknown Problem [facility] ([facility] Unknown Male Problem [facility] ([facility] Encounters Encounter Providers Location Date Indications Data Source(s ) Outpatient Referrer: VÍCTOR KIDD 10/07/2021 12:00:00 AM [facility] Outpatient Attender: ANKIT DURANT MDAttender: SOWMYA FULTON MD 08/19/2021 12:00:00 AM [facility] Outpatient Referrer: VÍCTOR KIDD 08/19/2021 12:00:00 AM [facility] Outpatient Attender: Neda LONG Main office - [facility] maricel 07/30/2021 11:45:00 AM EDT [facility] ([facility]) Outpatient Attender: Tu Charles lisa: TU RENEE [id number]: TU RENEE [id number] 07/18/2021 12:00:00 AM EDT [facility] Outpatient Attender: FRANNY Kern MDAttender: Deepak Charlesender: Wolfgang GaleanoAttender: WOLFGANG GALEANO .Admitter: Deepak Medina MDReferrer: Deepak Medina MD [id number] 07/17/2021 12:00:00 AM EDT - 07/18/2021 02:06:00 PM T [facility] Patient discharged. Outpatient Referrer: ALEXIS PECK 07/17/2021 12:00:00 AM [facility] Outpatient Attender: ANKIT DURANT MDAttender: SOWMYA FULTON MD 07/17/2021 12:00:00 AM [facility] Outpatient Attender: ANKIT DURANT MDAttender: SWOMYA FULTON MD 07/01/2021 12:00:00 AM [facility] Outpatient Referrer: ALEXIS PECK 07/01/2021 12:00:00 AM [facility] Unlisted evaluation and management service Performer: Praveena bynum 06/25/2021 07:20:00 PM EDT [facility]) Outpatient Attender: IAM VAZQUEZttender: Iam Lima 06/25/2021 12:00:00 AM [facility] Inpatient Attender: Radha Castro MDAt tender: RADHA CASTRO MDAttender: Brianna BrannonAttender: BRIANNA BRANNON MDAdmitter: RADHA CASTRO MDReferrer: YAO LEDEZMA [id number] 06/22/2021 12:00:00 AM EDT - 06/25/2021 05:19:00 PM EDT status epilepticus, SDH, intubated. [facility] status epilepticus, SDH, intubated. Patient discharged. Outpatient Attender: Seth Louis/Faye/Romulo/Margaux ndl 06/11/2021 09:30:00 AM EDT [facility] ([facility] ) Outpatient Attender: Hugh Dai MD Physical Therapy 06/02/2021 0 1:45:00 PM EDT [facility] ([facility] ) Inpatient Attender: Pearl Chavezerrer: Pearl Patel 05/10/2021 12:42:37 AM [facility] Inpatient Attender: Pearl PatelAttender: Fitz Alba MDAdmitter: Pearl Patel A-FI 05/09/2021 12:00:00 AM EDT - 05/10/2021 04:23:00 PM [facility] Patient discharged. Office Visit Attender: TRE SABA MD Main Office 05/07/2021 08:37:0 0 AM EDT [facility] ([facility]) Outpatient Attender: ANKIT DURANT MDAttender: SOWMYA FULTON MD 05/06/2021 12:00:00 AM [facility] Outpatient Referrer: ALEXIS PECK 05/06/2021 12:00:00 AM [facility] Outpatient Referrer: ALEXIS PECK 04/29/2021 12:00:00 AM [facility] Outpatient Attender: ANKIT DURANT MDAttender: SOWMYA FULTON MD 04/29/2021 12:00:00 AM [facility] Outpatient Attender: SOWMYA HANSEN MD 04/29/2021 12:0 0:00 AM [facility] Outpatient Referrer: Angelina LONG 04/29/2021 12:00:00 AM [facility] Outpatient Attender: Neda LONG Main office [facility] 04/28/2021 10:30:00 AM EDT [facility] ([facility]) Inpatient Attender: Radha Sun tender: RADHA CASTRO MDAttender: Wolfgang GaleanoAttender: WOLFGANG GALEANO .Admitter: RADHA CASTRO MD -EI 04/09/2021 12:00:00 AM EDT - 04/11/2021 04:04:00 PM [facility] Patient discharged. Outpatient Attender: Nell LONG Main Office 04/08/2021 09:45:00 AM EDT [facility] ([facility]) Outpatient Referrer: Angelina LONG 04/08/2021 12:00:00 AM [facility] Outpatient Attender: ANKIT DURANT MDAttender: SOWMYA FULTON MD 04/08/2021 12:00:00 AM [facility] Outpatient Attender: ANKIT DURANT MDAttender: SOWMYA FULTON MD 03/26/2021 12:00:00 AM EDT [facility] Outpatient Referrer: Angelina LONG 03/26/2021 12:00:00 AM EDT [facility] Outpatient Attender: SOWMYA HANSEN MD 03/25/2021 12:0 0:00 AM EDT [facility] Outpatient Referrer: Angelina LONG 03/25/2021 12:00:00 AM EDT [facility] Inpatient Attender: HEATH Ervin DAttender: KRISSY HAMPTONAttender: Linette Alvarez DOAdmitter: KRISSY HAMPTONReferrer: KRISSY HAMPTON [id number] 03/07/2021 12:00:00 AM EDT - 03/09/2021 12:12:00 PM EDT Traumatic subdural hemorrhage with loss of consciousness of unspecified duration, initial encounter [facility] Traumatic subdural hemorrhage with loss of consciousness of unspecified duration, initial encounter Patient discharged. 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 Outpatient Referrer: VÍCTOR KIDD 02/26/2021 12:00:00 AM EDT [facility] Outpatient Referrer: VÍCTOR KIDD 02/26/2021 12:00:00 AM EDT [facility] Outpatient Attender: Hugh Dai MD Physical Therapy 02/12/2021 0 3:15:00 PM EDT [facility] ([facility] ) Outpatient Attender: YAO LEDEZMA [id number] 02/06 12:00:00 AM EDT - 02/06/2021 01:47:07 PM EDT Gastrostomy status [facility] Gastrostomy status Outpatient Attender: SOWMYA HANSEN MD 02/04/2021 12:0 0:00 AM [facility] Outpatient Referrer: VÍCTOR KIDD 02/04/2021 12:00:00 AM [facility] OFFICE OUTPATIENT VISIT 15 MINUTES Attender: NEEL LONG Physical Therapy 01/30/2021 10:00:00 AM EDT [facility] ([facility]) Outpatient Attender: Neda LONG Main office - [facility] 01/22/2021 09:45:00 AM EDT [facility] ([facility]) Outpatient Attender: OSWMYA HANSEN MD 01/22/2021 12:0 0:00 AM [facility] Outpatient Referrer: VÍCTOR KIDD 01/22/2021 12:00:00 AM [facility] Emergency Attender: SOWMYA HANSEN MDAttender: Jenn Virk MDAttender: DIVYA Kuhnerrer: PROVIDER SYSTEM [id number] 12/21/2020 12 :00:00 AM EDT - 12/22/2020 03:42:00 PM EDT Traumatic subdural hemorrhage with loss of consciousness of unspecified duration, initial encounter [facility] Traumatic subdural hemorrhage with loss of consciousness of unspecified duration, initial encounter Patient discharged. OFFICE OUTPATIENT VISIT 15 MINUTES Attender: NEEL LONG Physical Therapy 12/11/2020 10:00:00 AM EST [facility] ([facility]) Outpatient Attender: SOWMYA HANSEN MD 11/26/2020 12:0 0:00 AM [facility] Outpatient Attender: SOWMYA HANSEN MD 11/26/2020 12:0 0:00 AM [facility] Outpatient Attender: SOWMYA HANSEN MD [id number] 11/14/2020 12:00:00 AM EST - 11/14/2020 02:14:18 PM EST Communicating hydrocephalus [facility] Communicating hydrocephalus Outpatient Attender: SOWMYA HANSEN MD 10/30/2020 12:0 0:00 AM [facility] Office Visit Attender: TRE SABA MD Main Office 10/29/2020 08:07:0 0 AM EST [facility] ([facility]) Inpatient Attender: SOWMYA HANSEN MDAdmitter: SOWMYA HANSEN MDReferrer: PROVIDER SYSTEM IN 10/21/2020 12:00:00 AM EST - 10/28/2020 10:33:00 AM EST Presence of cerebrospinal fluid drainage device [facility] Presence of cerebrospinal fluid drainage device Patient discharged. Outpatient Attender: SOWMYA HANSEN MD 09/24/2020 12:0 0:00 AM [facility] Outpatient Attender: SOWMYA HANSEN MD 09/10/2020 12:0 0:00 AM [facility] Outpatient Attender: SOWMYA HANSEN MD 08/27/2020 12:0 0:00 AM [facility] Outpatient Referrer: ALEXIS PECK 08/07/2020 12:00:00 AM [facility] Outpatient Attender: SOWMYA HANSEN MD 08/07/2020 12:0 0:00 AM [facility] Inpatient Attender: BOBBI RUTH MD Admitter: BOBBI RUTH MDReferrer: JANICE NOLEN 08/06/2020 12:00:00 AM EST - 09/05/2020 12:00:00 AM EST [facility] Apraxia Patient discharged. Inpatient Attender: Deyvi Sebastian MDA dmitter: RADHA CASTRO MDReferrer: Deyvi Sebastian MD 08/04/2020 05:43:10 PM EST Status epilepticus [facility] Status epilepticus Inpatient Attender: Deyvi Sebastian MDA ttender: RADHA CASTRO MDAdmitter: RADHA CASTRO MDReferrer: RADHA CASTRO MDConsultant: Ash Kendall MD [id number] 07/31/2020 12:00:00 AM EDT - 08/06/2020 03:20:00 PM EST Epilepsy, unspecified, not intractable, without status epilepticus [facility] Epilepsy, unspecified, not intractable, without status epilepticus Patient discharged. Outpatient Referrer: BOBBI RUTH MD 07/28/2020 12:00:0 0 AM [facility] Outpatient Attender: SOWMYA HANSEN MD 07/23/2020 12:0 0:00 AM EDT [facility] Inpatient Attender: BOBBI SERRAGALLO MDAdmitter: BOBBI ACUÑA MD [id number] 07/08/2020 12:00:00 AM EDT - 07/31/2020 02:35:00 AM EDT Traumatic subdural hemorrhage with loss of consciousness of unspecified duration, initial encounter [facility] Traumatic subdural hemorrhage with loss of consciousness of unspecified duration, initial encounter Patient discharged. Inpatient Attender: Pearl Perez r: Ash Kendall MDAttender: RADHA CASTRO MDAttender: SOWMYA HANSEN MDAttender: BRIANNA BRANNON MDAdmitter: SOWMYA HANSEN MDReferrer: SOWMYA HANSEN MDConsultant: Ash Kendall MD [id number] 06/16/2020 12:00:00 AM EDT - 07/08/2020 03:36:00 PM EDT Traumatic subdural hemorrhage with loss of consciousness of unspecified duration, initial encounter [facility] Traumatic subdural hemorrhage with loss of consciousness of unspecified duration, initial encounter Patient discharged. Immunizations Vaccine Date Status Description Data Source(s) COVID-19 VACCINE Truckily 12/31/2020 12:00:00 AM EDT completed [facility] Vaccine Series Complete: YESThis Data wa s Submitted to [facility]. Medications Medication Brand Name Start Date Product Form Dose Route Admi nistrative Instructions Pharmacy Instructions Status Indications Reaction Description Data Source(s) potassium chloride (K-DUR) dissolvable tablet 20 mEq [id number] 06/25/2021 09:00:00 AM EDT 20 meq Oral active 20 mEq, Oral, 2 Times Daily, First dose on Martha 06/25/21 at 0900, For 30 days
May be dissolved in water for patients with a G-Tube or unable to swallow. If concern for clogging G-Tube, may contact Pharmacy to switch formulation to a powder packet.
[facility] Medication administered onsite Potassium Chloride 0.1 MEQ/ML Injectable Solution potassium chloride 10 mEq in 100 mL IVPB (premix) potassium chloride 10 mEq in 100 mL IVPB (premix) 06/25/2021 06:00:00 AM EDT 10 meq Intravenous completed 10 mEq, Intravenous, Administer over 60 Minutes, Every 1 hour, First dose on Tue06/25/21 at 0600, For 4 doses [facility] Medication administered onsite heparin (porcine) 5000 UNIT/ML injection 5,000 Units [id number] 06/24/2021 09:00:00 AM EDT 5000 U Subcutaneous active 5,000 Units, Subcutaneous, 2 Times Daily, First dose on Tue06/24/21 at 0900, For 30 days [facility] Medication administered onsite Levetiracetam 500 MG Oral Tablet levETIRAcetam (KEPPRA ) tablet 500 mg levETIRAcetam (KEPPRA) tablet 500 mg 06/23/2021 10:00:00 PM EDT 500 m g Oral active 500 mg, Oral, 2 Times Daily, First dose (after last modification) on Tue06/23/21 at 2200, For 30 days [facility] Medication administered onsite Metoprolol Tartrate 25 MG Oral Tablet me toprolol tartrate (LOPRESSOR) tablet 25 mg metoprolol tartrate (LOPRESSOR) tablet 25 mg 06/23/2021 09:00:00 PM EDT 25 mg Oral active 25 mg, Ora l, 2 Times Daily, First dose on Tue06/23/21 at 2100, For 30 days [facility] Medication administered onsite Thiamine 100 MG Oral Tablet thiamine (B-1) tablet 100 mg thiamine (B-1) tablet 100 mg 06/23/2021 09:00:00 AM EDT 100 mg Oral active 100 mg, Oral, Daily Standard, First dose on Tue06/23/21 at 0900, For 30 doses [facility] Medication administered onsite Folic Acid 1 MG Oral Tablet folic acid (FOLVITE) table t 1 mg folic acid (FOLVITE) tablet 1 mg 06/23/2021 09:00:00 AM EDT 1 mg Per G Tube active 1 mg, Per G Tube, Daily Standard, First dose on Tue06/23/21 at 0900, For 30 days [facility] Medication administered onsite ezetimibe 10 MG Oral Tablet ezetimibe (ZETIA) tablet 1 0 mg ezetimibe (ZETIA) tablet 10 mg 06/22/2021 10:00:00 PM EDT 10 mg Oral activ e 10 mg, Oral, Nightly, First dose on Tue06/22/21 at 2200, For 30 days [facility] Medication administered onsite Amitriptyline Hydrochloride 10 MG Oral T ablet amitriptyline (ELAVIL) tablet 25 mg amitriptyline (ELAVIL) tablet 25 mg 06/22/2021 10:00:00 PM EDT 25 mg Oral active 25 mg, Oral, Ni ghtly, First dose on Tue06/22/21 at 2200, For 30 days [facility] Medication administered onsite Levetiracetam 5 MG/ML Injectable Solutio n levETIRAcetam (KEPPRA) 500 mg in sodium chloride 100 mL (5 mg/mL) infusion (premix) levETIRAcetam (KEPPRA) 500 mg in sodium chloride 100 mL (5 mg/mL) infusion (premix) 06/22/2021 09:00:00 PM EDT 500 mg Intravenous aborted 500 mg, Intravenous, at 400 mL/hr, 2 Times Daily, First dose on Tue06/22/21 at 2100, For 30 days [facility] Medication administered onsite dexmedetomidine (PRECEDEX) in NaCl 0.9 % infusion 4 mcg/mL 1 [id number] 06/22/2021 02:15:00 PM EDT ug/kg/h Intravenous aborted 0.1-1.5 mcg/kg/hr 58.6 kg (1.465-21.975 mL/hr, rounded to 1.5-22 mL/hr), Intravenous, at 1.5-22 mL/hr, Continuous, Starting on Tue06/22/21 at 1415, For 30 days
Starting dose = 0.2 mcg/kg/hrTitrate to maintain RASS of -1 Titrate by 0.1-0.2 mcg/kg/hrMax Dose = 1.5 mcg/kg/hr Titrate down if RASS of -3
[facility] Medication administered onsite ondansetron (ZOFRAN) injection 4 mg [id number] 06/22/2021 02:15:0 0 PM EDT 4 mg Intravenous completed 4 mg, In travenous, Once, On Tue06/22/21 at 1415, For 1 dose [facility] Medication administered onsite NaCl infusion 0.9 % [id number] 06/22/2021 01:45:00 PM EDT Intravenous aborted at 100 mL/hr, Intrav enous, Continuous, Starting on Tue06/22/21 at 1345, For 30 days [facility] Medication administered onsite Acetaminophen 325 MG Oral Tablet acetaminophen (TYLENO L) tablet 650 mg acetaminophen (TYLENOL) tablet 650 mg 06/22/2021 01:42:36 PM EDT 65 0 mg Oral active 650 mg, Oral, E very 4 hours PRN, Mild Pain (Pain Scale Score 1- 3), Starting on Tue06/22/21 at 1342, For 30 days
Maximum daily dose of acetaminophen is 3,000 mg from all sources in 24 hours.
[facility] Medication administered onsite labetalol (TRANDATE) injection 10 mg [id number] 06/22/2021 01:42: 36 PM EDT 10 mg Intravenous active 10 mg, I ntravenous, Every 6 hours PRN, High Blood Pressure, Starting on Tue06/22/21 at 1342, For 30 days
If BP > 160
[facility] Medication administered onsite pantoprazole 40 MG Delayed Release Oral Tablet pantoprazole (PROTONIX) EC tablet 40 mg pantoprazole (PROTONIX) EC tablet 40 mg 05/10/2021 09:00:00 AM E DT 40 mg Oral active 40 mg, Ora l, Daily Standard, First dose on 05/10/21 at 0900, For 30 days
Do not crush or chew
[facility] Medication administered onsite Thiamine 100 MG Oral Tablet thiamine (B-1) tablet 100 mg thiamine (B-1) tablet 100 mg 05/10/2021 09:00:00 AM EDT 100 mg Oral active 100 mg, Oral, Daily Standard, First dose on 05/10/21 at 0900, For 30 doses [facility] Medication administered onsite Levetiracetam 500 MG Oral Tablet levETIRAcetam 500 MG Oral Tablet (KEPPRA) levETIRAcetam 500 MG Oral Tablet (KEPPRA) 05/10/2021 12:00:00 AM EDT 500 mg Oral active Take 1 tablet by sherlyn th Two Times Daily [facility] Amitriptyline Hydrochloride 25 MG Oral T ablet amitriptyline (ELAVIL) tablet 25 mg amitriptyline (ELAVIL) tablet 25 mg 05/09/2021 10:00:00 PM EDT 25 mg Oral active 25 mg, Oral, Ni ghtly, First dose on 05/09/21 at 2200, For 30 days [facility] Medication administered onsite ezetimibe 10 MG Oral Tablet ezetimibe (ZETIA) tablet 1 0 mg ezetimibe (ZETIA) tablet 10 mg 05/09/2021 10:00:00 PM EDT 10 mg Oral activ e 10 mg, Oral, Nightly, First dose on 05/09/21 at 2200, For 30 days [facility] Medication administered onsite oxcarbazepine 300 MG Oral Tablet OXcarbazepine (TRILEP MOSES) tablet 600 mg OXcarbazepine (TRILEPTAL) tablet 600 mg 05/09/2021 09:00:00 PM EDT 600 mg Oral aborted 600 mg, Oral, 2 Times Daily, First dose on 05/09/21 at 2100, For 30 days [facility] Medication administered onsite hypromellose 25 MG/ML Ophthalmic Solutio n hydroxypropyl methylcellulose (GONIOSOL) 2.5 % ophthalmic solution 1 drop hydroxypropyl methylcellulose (GONIOSOL) 2.5 % ophthalmic solution 1 drop 05/09/2021 05:00:00 PM EDT 1 [drp] Both Eyes active 1 drop, Jose th Eyes, Three Times Daily Standard, First dose on 05/09/21 at 1700, For 30 days [facility] Medication administered onsite OXcarbazepine (TRILEPTAL) tablet 450 mg 05/09/2021 02:30:0 0 PM EDT 450 mg Oral aborted 450 mg, Oral, Daily Standard, First dose on 05/09/21 at 1430, For 30 days [facility] Medication administered onsite Levetiracetam 500 MG Oral Tablet levETIRAcetam (KEPPRA ) tablet 500 mg levETIRAcetam (KEPPRA) tablet 500 mg 05/09/2021 11:15:00 AM EDT 500 m g Oral active 500 mg, Oral, 2 Times Daily, First dose on 05/09/21 at 1115, For 30 days [facility] Medication administered onsite Glucose 0.417 MG/MG Oral Gel glucose (GLUTOSE) 40 % or al gel 15 g glucose (GLUTOSE) 40 % oral gel 15 g 05/09/2021 10:58:15 AM EDT 15 g Oral active 15 g, Oral, PRN, Low blood s ugar, for gluose 55-69 mg/dl and able to take PO, Starting on 05/09/21 at 1058, For 30 days [facility] Medication administered onsite Glucagon 1 MG Injection glucagon (human recombinant) ( GLUCAGEN) injection 1 mg glucagon (human recombinant) (GLUCAGEN) injection 1 mg 05/09/2021 10:58:15 AM EDT 1 mg Intramuscular active 1 mg, Intramuscular, PRN, for glucose <55 without IV access, Starting on 05/09/21 at 1058, For 30 days [facility] Medication administered onsite dextrose 50 % IV solution 25 mL [id number] 05/09/2021 10:58:15 AM E DT 25 mL Intravenous active 25 mL, Intrav enous, PRN, Other, blood glucose <55, Starting on 05/09/21 at 1058, For 30 days
Not for midline administration.
[facility] Medication administered onsite Sodium Chloride 1000 MG Oral Tablet sodium chloride ta blet 2 g sodium chloride tablet 2 g 04/10/2021 10:00:00 PM EDT 2 g Oral complet ed 2 g, Oral, Once, On Tue04/10/21 at 2200, For 1 dose [facility] Medication administered onsite Sodium Chloride 1000 MG Oral Tablet sodium chloride ta blet 2 g sodium chloride tablet 2 g 04/10/2021 06:00:00 PM EDT 2 g Oral active 2 g, Oral, Three Times Daily-With Meals, First dose (after last modification) on Tue04/10/21 at 1800, For 18 doses [facility] Medication administered onsite Sodium Chloride 1000 MG Oral Tablet sodium chloride ta blet 2 g sodium chloride tablet 2 g 04/10/2021 01:45:00 PM EDT 2 g Oral complet ed 2 g, Oral, Once, On Tue04/10/21 at 1345, For 1 dose [facility] Medication administered onsite sodium chloride 0.9 % bolus 1,000 mL [id number] 04/10/2021 01:45: 00 PM EDT 1000 mL Intravenous completed 1,000 mL , Intravenous, Once, On Tue04/10/21 at 1345, For 1 dose [facility] Medication administered onsite pantoprazole 4 MG/ML Injectable Solution pantoprazole (PROTONIX) injection 40 mg pantoprazole (PROTONIX) injection 40 mg 04/10/2021 09:00:00 AM EDT 40 mg Intravenous active 40 mg, Intrav enous, Daily Standard, First dose on Tue04/10/21 at 0900, For 30 days [facility] Medication administered onsite Sodium Chloride 1000 MG Oral Tablet sodium chloride ta blet 1 g sodium chloride tablet 1 g 04/10/2021 07:00:00 AM EDT 1 g Oral aborted 1 g, Oral, Three Times Daily-With Meals, First dose on Tue04/10/21 at 0700, For 7 days [facility] Medication administered onsite sodium chloride 0.9 % bolus 500 mL [id number] 04/09/2021 02:45:00 PM EDT 500 mL Intravenous completed 500 mL, Intravenous, Once, On Tue04/09/21 at 1445, For 1 dose [facility] Medication administered onsite oxcarbazepine 300 MG Oral Tablet OXcarbazepine (TRILEP MOSES) tablet 450 mg OXcarbazepine (TRILEPTAL) tablet 450 mg 04/09/2021 02:00:00 PM EDT 450 mg Oral active 450 mg, Oral, User Specified (Daily), First dose on Tue04/09/21 at 1400, For 30 days [facility] Medication administered onsite oxcarbazepine 300 MG Oral Tablet OXcarbazepine (TRILEP MOSES) tablet 600 mg OXcarbazepine (TRILEPTAL) tablet 600 mg 04/09/2021 09:00:00 AM EDT 600 mg Oral active 600 mg, Oral, 2 Times Daily, First dose on Tue04/09/21 at 0900, For 30 days [facility] Medication administered onsite Docusate Sodium 100 MG Oral Capsule docusate sodium (C OLACE) capsule 100 mg docusate sodium (COLACE) capsule 100 mg 04/09/2021 09:00:00 AM EDT 100 mg Oral active 100 mg, Oral, 2 Times Daily, First dose on Tue04/09/21 at 0900, For 30 days [facility] Medication administered onsite desmopressin (DDAVP) 25.04 mcg in sodium chloride 0.9 % 50 m L IVPB 04/09/2021 08:45:00 AM EDT 0.4 ug/kg Intravenous completed 25.04 mcg (0.4 mcg/kg 62.6 kg), Intravenous, Administer over 30 Minutes, Once, On Martha 04/09/21 at 0845, For 1 dose [facility] Medication administered onsite labetalol (TRANDATE) injection 10 mg [id number] 04/09/2021 08:06: 32 AM EDT 10 mg Intravenous active 10 mg, I ntravenous, Every 6 hours PRN, High Blood Pressure, Starting on Martha 04/09/21 at 0806, For 30 days
If BP > 140
[facility] Medication administered onsite Hydralazine Hydrochloride 20 MG/ML Injec table Solution hydrALAZINE (APRESOLINE) injection 10 mg hydrALAZINE (APRESOLINE) injection 10 mg 04/09/2021 08 :06:32 AM EDT 10 mg Intravenous active 10 m g, Intravenous, Every 6 hours PRN, Hypertension, High Blood Pressure, Starting on Martha 04/09/21 at 0806, For 30 days
If BP > 140
[facility] Medication administered onsite Acetaminophen 325 MG Oral Tablet acetaminophen (TYLENO L) tablet 650 mg acetaminophen (TYLENOL) tablet 650 mg 04/09/2021 08:06:32 AM EDT 65 0 mg Oral active 650 mg, Oral, E very 4 hours PRN, Mild Pain (Pain Scale Score 1- 3), Starting on Martha 04/09/21 at 0806, For 30 days
Maximum daily dose of acetaminophen is 3,000 mg from all sources in 24 hours.
[facility] Medication administered onsite oxcarbazepine 600 MG Oral Tablet [Trileptal] Trileptal 04/07/2021 12:00:00 AM EDT active [facility] ([facility] pantoprazole 20 MG Delayed Release Oral Tablet [Protonix] Pr otonix 04/07/2021 12:00:00 AM EDT ORAL active M EDENT ([facility]) Aspercreme Lidocaine Aspercreme Lidocaine 04/07/2021 12:00:00 AM EDT active [facility] ([facility]) Amitriptyline Hydrochloride 25 MG Oral Tablet Amitriptyline HCL 04/07/2021 12:00:00 AM EDT ORAL active M EDENT ([facility]) 24 HR metoprolol succinate 25 MG Extended Release Oral Tablet Metoprolol Succinate ER 04/07/2021 12:00:00 AM EDT ORAL active [facility] ([facility]) Aspirin 81 MG Chewable Tablet Aspirin 04/07/2021 12:00:00 AM EDT ORAL active [facility] ([facility]) Thiamine 100 MG Oral Tablet Vitamin B-1 04/07/2021 12:00:00 AM EDT ORAL active [facility] ([facility]) ropinirole 1 MG Oral Tablet [Requip] Requip 04/07/2021 12:00:00 AM EDT ORAL active [facility] ([facility]) modafinil 200 MG Oral Tablet [Provigil] Provigil 04/07/2021 12:00:0 0 AM EDT active [facility] ([facility]) Folic Acid 1 MG Oral Tablet Folic Acid 04/07/2021 12:00:00 AM EDT ORAL active [facility] ([facility]) Acetaminophen 500 MG Oral Tablet [Tylenol] Tylenol Extra Str ength 04/07/2021 12:00:00 AM EDT ORAL active M EDENT ([facility]) Glycerin 3 MG/ML / Propylene glycol 10 MG/ML Ophthalmi c Solution Artificial Tears 04/07/2021 12:00:00 AM EDT active [facility] ([facility]) hypromellose 25 MG/ML Ophthalmic Solution Goniotaire 2020 12:00:00 AM EDT active [facility] ( [facility]) sennosides, JAIL 8.6 MG Oral Tablet Senna 04/07/2021 12:00:00 AM EDT ORAL active [facility] ([facility]) oxcarbazepine 150 MG Oral Tablet OXcarbazepine 150 MG Oral Tablet (TRILEPTAL) OXcarbazepine 150 MG Oral Tablet (TRILEPTAL) 03/09/2021 12:00:00 AM EDT 450 mg Oral aborted Take 3 tab lets by mouth daily Take 3 tablets by mouth daily in the afternoon. Oxcarbazepine dose is 600-450-600 [facility] OXcarbazepine (TRILEPTAL) tablet 450 mg 03/08/2021 02:30:0 0 PM EDT 450 mg Oral active 450 mg, Oral, Daily Standard, First dose (after last reorder) on 03/08/21 at 1430, For 30 doses
Tube to ER
[facility] Medication administered onsite Docusate Sodium 100 MG Oral Capsule docusate sodium (C OLACE) capsule 100 mg docusate sodium (COLACE) capsule 100 mg 03/08/2021 09:00:00 AM EDT 100 mg Oral active 100 mg, Oral, 2 Times Daily, First dose on 03/08/21 at 0900, For 30 days [facility] Medication administered onsite oxcarbazepine 300 MG Oral Tablet OXcarbazepine (TRILEP MOSES) tablet 600 mg OXcarbazepine (TRILEPTAL) tablet 600 mg 03/08/2021 09:00:00 AM EDT 600 mg Oral active 600 mg, Oral, Every 12 hours, First dose (after last reorder) on 03/08/21 at 0900, For 30 doses [facility] Medication administered onsite pantoprazole 20 MG Delayed Release Oral Tablet pantoprazole (PROTONIX) EC tablet 20 mg pantoprazole (PROTONIX) EC tablet 20 mg 03/08/2021 09:00:00 AM E DT 20 mg Oral active 20 mg, Ora l, Daily Standard, First dose on 03/08/21 at 0900, For 30 days
Do not crush or chew
[facility] Medication administered onsite Thiamine 100 MG Oral Tablet thiamine (B-1) tablet 100 mg thiamine (B-1) tablet 100 mg 03/08/2021 09:00:00 AM EDT 100 mg Oral active 100 mg, Oral, Daily Standard, First dose on 03/08/21 at 0900, For 30 days [facility] Medication administered onsite Folic Acid 1 MG Oral Tablet folic acid (FOLVITE) table t 1 mg folic acid (FOLVITE) tablet 1 mg 03/08/2021 09:00:00 AM EDT 1 mg Oral active 1 mg, Oral, Daily Standard, First dose on 03/08/21 at 0900, For 30 days [facility] Medication administered onsite oxcarbazepine 300 MG Oral Tablet OXcarbazepine (TRILEP MOSES) tablet 600 mg OXcarbazepine (TRILEPTAL) tablet 600 mg 03/08/2021 02:45:00 AM EDT 600 mg Oral active 600 mg, Oral, Once, On 03/08/21 at 0245, For 1 dose [facility] Medication administered onsite Acetaminophen 325 MG Oral Tablet acetaminophen (TYLENO L) tablet 650 mg acetaminophen (TYLENOL) tablet 650 mg 03/07/2021 09:02:51 PM EDT 65 0 mg Oral active 650 mg, Oral, E very 4 hours PRN, Mild Pain (Pain Scale Score 1- 3), Starting on 03/07/21 at 2102, For 30 days
Maximum daily dose of acetaminophen is 3,000 mg from all sources in 24 hours.
[facility] Medication administered onsite Hydralazine Hydrochloride 20 MG/ML Injec table Solution hydrALAZINE (APRESOLINE) injection 10 mg hydrALAZINE (APRESOLINE) injection 10 mg 03/07/2021 09 :02:51 PM EDT 10 mg Intravenous active 10 m g, Intravenous, Every 6 hours PRN, Hypertension, High Blood Pressure, Starting on 03/07/21 at 2102, For 30 days
If BP > 140
[facility] Medication administered onsite labetalol (TRANDATE) injection 10 mg [id number] 03/07/2021 09:02: 51 PM EDT 10 mg Intravenous active 10 mg, I ntravenous, Every 6 hours PRN, High Blood Pressure, Starting on 03/07/21 at 2102, For 30 days
If BP > 160
[facility] Medication administered onsite ropinirole 1 MG Oral Tablet ropinirole (REQUIP) tablet 1 mg ropinirole (REQUIP) tablet 1 mg 03/07/2021 09:00:00 PM EDT 1 mg Oral active 1 mg, Oral, 2 Times Daily, First dose on 03/07/21 at 2100, For 30 days [facility] Medication administered onsite sodium chloride 0.9 % bolus 1,000 mL [id number] 03/07/2021 07:45: 00 PM EDT 1000 mL Intravenous completed 1,000 mL , Intravenous, Once, On 03/07/21 at 1945, For 1 dose [facility] Medication administered onsite OXcarbazepine (TRILEPTAL) tablet 450 mg 03/07/2021 06:45:0 0 PM EDT 450 mg Oral active 450 mg, Oral, Once, On 03/07/21 at 1845, For 1 dose
Tube to ER
[facility] Medication administered onsite sennosides, JAIL 8.6 MG Oral Tablet Senna 8.6 MG Oral T ablet Senna 8.6 MG Oral Tablet 02/17/2021 12:00:[facility] 02/14/2021 12:00:00 AM EDT tablet 330 TAKE 4 TABLETS (600MG) BY MOUTH TWO TIMES A DAY AT 0600 AND 2000, AND 3 TABLETS (450 MG) BY MOUTH AT 1400 FOR SEIZURES TAKE 4 TABLETS (600MG) BY MOUTH TWO TIME S A DAY AT 0600 AND 2000, AND 3 TABLETS (450 MG) BY MOUTH AT 1400 FOR SEIZURES SOLD: 02/14/2021 [facility] Amitriptyline Hydrochloride 25 MG Oral T ablet Amitriptyline HCl 25 MG Oral Tablet (ELAVIL) Amitriptyline HCl 25 MG Oral Tablet (ELAVIL) 12:00:00 AM EDT 25 mg Oral active Take 25 mg by mo [facility] pantoprazole (PROTONIX) 2 mg/mL oral suspension 40 mg 12/22/2020 08:00:00 AM EDT 40 mg Oral completed 40 mg, Oral, Once, 12/22/20 at 0800, For 1 dose [facility] Medication administered onsite oxcarbazepine 60 MG/ML Oral Suspension O Xcarbazepine (TRILEPTAL) 300 MG/5ML suspension 600 mg OXcarbazepine (TRILEPTAL) 300 MG/5ML suspension 600 mg 12/22/2020 08:00:00 AM EDT 600 mg Oral active 600 mg, Oral, Once, 12/22/20 at 0800, For 1 dose [facility] Medication administered onsite Metoprolol Tartrate 25 MG Oral Tablet me toprolol tartrate (LOPRESSOR) tablet 25 mg metoprolol tartrate (LOPRESSOR) tablet 25 mg 12/22/2020 12:15:00 AM EDT 25 mg Oral active 25 mg, Ora l, 2 Times Daily, First dose on Tue12/22/20 at 0015, For 2 doses [facility] Medication administered onsite ropinirole 1 MG Oral Tablet ropinirole (REQUIP) tablet 1 mg ropinirole (REQUIP) tablet 1 mg 12/22/2020 12:15:00 AM EDT 1 mg Oral comple navjot 1 mg, Oral, Once, Tue12/22/20 at 0015, For 1 dose [facility] Medication administered onsite oxcarbazepine 60 MG/ML Oral Suspension O Xcarbazepine (TRILEPTAL) 300 MG/5ML suspension 600 mg OXcarbazepine (TRILEPTAL) 300 MG/5ML suspension 600 mg 12/21/2020 09:45:00 PM EDT 600 mg Oral active 600 mg, Oral, Once, 12/21/20 at 2145, For 1 dose [facility] Medication administered onsite dextrose 5 % and sodium chloride 0.45 % infusion [id number] 0 12/21/2020 09:45:00 PM EDT Intravenous active at 100 mL/hr, Intravenous, Continuous, Starting 12/21/20 at 2145, For 30 days [facility] Medication administered onsite modafinil 200 MG Oral Tablet Modafinil 200 MG Oral Tab let (PROVIGIL) Modafinil 200 MG Oral Tablet (PROVIGIL) 09/05/2020 12:00:00 AM EST 200 mg P er G Tube active 1 tablet by Per G Tube route daily , Max Daily Dose: 200 mg [facility] Prednisone 5 MG Oral Tablet predniSONE 5 MG Oral Table t (DELTASONE) predniSONE 5 MG Oral Tablet (DELTASONE) 09/05/2020 12:00:00 AM EST 5 mg Per G Tube active 1 tablet by Per G Tube route [facility]gen [facility] Aspirin 81 MG Delayed Release Oral Table t Aspirin 81 MG Oral Tablet Delayed Release Aspirin 81 MG Oral Tablet Delayed Release 09/05/2020 12:00:00 AM EST 81 mg Oral aborted Take 1 tablet by mouth d [facility] fluconazole (DIFLUCAN) 200 mg in sodium chloride 0.9 % 100 mL (2 mg/mL) infusion (premix) [id number] 09/04/2020 04:30:00 PM EST 200 mg Intravenous completed 200 mg, Intravenous, at 100 mL/hr, Once, [facility] 09/04/20 at 1630, For 1 dose
Discouraged Uses: Treatment of Justine growth from the urine
[facility] Medication administered onsite Folic Acid 1 MG Oral Tablet Folic Acid 1 MG Oral Table t (FOLVITE) Folic Acid 1 MG Oral Tablet (FOLVITE) 09/04/2020 12:00:00 AM EST 1 mg Per G Tu be active 1 tablet by Per G Tube route [facility] pantoprazole 2 mg/mL PO oral suspension 09/04/2020 12:00:0 0 AM EST 40 mg Per G Tube aborted 20 mLs by Per G Tube route daily [facility] Thiamine 100 MG Oral Tablet Thiamine HCl 100 MG Oral T ablet (B-1) Thiamine HCl 100 MG Oral Tablet (B-1) 09/04/2020 12:00:00 AM EST 100 mg Per G Tu be aborted 1 tablet by Per G Tube route [facility] Dexamethasone 1 MG/ML / Neomycin 3.5 MG/ ML / Polymyxin B 62690 UNT/ML Ophthalmic Suspension Cvyylsnk-Vnmyyddym-Uhwrznco 3.5-96418-0.1 Ophthalmic Suspension (MAXITROL) Jgfikbuk-Atobkhcgr-Dqvdgugw 3.5-79541-3. 1 Ophthalmic Suspension (MAXITROL) 09/04/2020 12:00:00 AM EST 1 [drp] Right Eye act yari Place 1 drop into the right eye Four times daily [facility] oxcarbazepine 60 MG/ML Oral Suspension O Xcarbazepine 300 MG/5ML Oral Suspension (TRILEPTAL) OXcarbazepine 300 MG/5ML Oral Suspension (TRILEPTAL) 1 11/05/2019 12:00:00 AM EST 450 mg Per G Tube aborted 7.5 mLs by Per G Tube route every 8 (eight) hours [facility] sennosides, JAIL 35.2 MG/ML Oral Solution Senna 176 MG/ 5ML Oral Syrup (SENOKOT) Senna 176 MG/5ML Oral Syrup (SENOKOT) 09/04/2020 12:00:00 AM EST 10 mL Per G Tube aborted 10 mLs by Per G Tube route nightly [facility] Acetaminophen 325 MG Oral Tablet Acetaminophen 325 MG Oral T ablet 09/04/2020 12:00:00 AM EST 650 mg Oral active Take 2 tablets by mouth every 6 (six) hours as needed for up to 10 days [facility] ezetimibe 10 MG Oral Tablet Ezetimibe 10 MG Oral Table t (ZETIA) Ezetimibe 10 MG Oral Tablet (ZETIA) 09/04/2020 12:00:00 AM EST 10 mg Oral active Take 1 tablet by mouth nightly [facility] hypromellose 25 MG/ML Ophthalmic Solutio n Hypromellose 2.5 % Ophthalmic Solution (GONIOSOL) Hypromellose 2.5 % Ophthalmic Solution (GONIOSOL) 12/2019 12:00:00 AM EST 1 [drp] Both Eyes active Place 1 drop into both eyes Three times daily [facility] ropinirole 1 MG Oral Tablet rOPINIRole HCl 1 MG Oral T ablet (REQUIP) rOPINIRole HCl 1 MG Oral Tablet (REQUIP) 09/04/2020 12:00:00 AM EST 1 mg Per G Tube aborted 1 tablet by Per G Tube route Two Times Daily [facility] Docusate Sodium 10 MG/ML Oral Suspension Docusate Sodium 50 MG/5ML Oral Liquid (COLACE) Docusate Sodium 50 MG/5ML Oral Liquid (COLACE) 020 12:00:00 AM EST 100 mg Per G Tube active 10 mL s by Per G Tube route Two Times Daily for 10 days [facility] Erythromycin 0.005 MG/MG Ophthalmic Oint ment Erythromycin 5 MG/GM Ophthalmic Ointment (ROMYCIN) Erythromycin 5 MG/GM Ophthalmic Ointment (ROMYCIN) 12/2019 12:00:00 AM EST 1 [address] 1 cm into both eyes nightly for 10 days [facility] Metoprolol Tartrate 25 MG Oral Tablet Me toprolol Tartrate 25 MG Oral Tablet (LOPRESSOR) Metoprolol Tartrate 25 MG Oral Tablet (LOPRESSOR) 12/2019 12:00:00 AM EST 25 mg Oral aborted Take 1 tablet by mouth Two Times Daily [facility] Erythromycin 0.005 MG/MG Ophthalmic Oint ment erythromycin (ROMYCIN) ophthalmic ointment 1 cm erythromycin (ROMYCIN) ophthalmic ointment 1 cm 2019 10:00:00 PM EST 1 cm Both Eyes active 1 cm, Both Eyes, Nightly, First dose on Tue09/02/20 at 2200, For 14 days [facility] Medication administered onsite Dexamethasone 1 MG/ML / Neomycin 3.5 MG/ ML / Polymyxin B 93215 UNT/ML Ophthalmic Suspension irzluizr-nrqsuijoi-lfqwtrunwtkel (MAXITROL) 3.5-78781-9.1 ophthalmic suspension 1 drop gvdjvwjv-tulsbpmoa-tidhzutjfowhj (MAXITR OL) 3.5-47433-9.1 ophthalmic suspension 1 drop 09/02/2020 01:00:00 PM EST 1 [drp] Righ t Eye active 1 drop, Right Eye, F our Times Daily Standard, First dose (after last modification) on Tue09/02/20 at 1300, For 56 doses
Shake well before using
[facility] Medication administered onsite fluconazole (DIFLUCAN) 200 mg in sodium chloride 0.9 % 100 mL (2 mg/mL) infusion (premix) [id number] 08/29/2020 01:15:00 PM EST 200 mg Intravenous completed 200 mg, Intravenous, at 100 mL/hr, Once, Tue08/29/20 at 1315, For 1 dose
Discouraged Uses: Treatment of Justine growth from the urine
[facility] Medication administered onsite Acetaminophen 325 MG Oral Tablet acetaminophen (TYLENO L) tablet 650 mg acetaminophen (TYLENOL) tablet 650 mg 08/29/2020 09:30:00 AM EST 65 0 mg Oral active 650 mg, Oral, E very 6 hours PRN, All Levels of Pain (Pain Scale Score 1-10), Headaches, Fever, Starting Tue08/29/20 at 0930, For 720 hours
Maximum daily dose of acetaminophen is 3,000 mg from all sources in 24 hours.
[facility] Medication administered onsite Metoprolol Tartrate 25 MG Oral Tablet me toprolol tartrate (LOPRESSOR) tablet 25 mg metoprolol tartrate (LOPRESSOR) tablet 25 mg 08/27/2020 09:00:00 PM EST 25 mg Oral active 25 mg, Ora l, 2 Times Daily, First dose (after last modification) on Tue08/27/20 at 2100, For 56 doses [facility] Medication administered onsite ropinirole 1 MG Oral Tablet ropinirole (REQUIP) tablet 1 mg ropinirole (REQUIP) tablet 1 mg 08/27/2020 09:00:00 PM EST 1 mg Per G Tube ac tive 1 mg, Per G Tube, 2 Times Daily, First dose (after last modification) on Tue08/27/20 at 2100, For 36 doses [facility] Medication administered onsite modafinil 100 MG Oral Tablet modafinil (PROVIGIL) tabl et 200 mg modafinil (PROVIGIL) tablet 200 mg 08/26/2020 06:00:00 AM EST 200 mg Per G Tu be active 200 mg, Per G Tube, Daily Standard, First dose (after last modification) on Tue08/26/20 at 0600, For 13 doses [facility] Medication administered onsite Docusate Sodium 10 MG/ML Oral Suspension docusate (COLACE) 50 MG/5ML liquid 100 mg docusate (COLACE) 50 MG/5ML liquid 100 mg 08/25/2020 09:00:00 PM EST 100 mg Per G Tube active 100 mg, P er G Tube, 2 Times Daily, First dose on Tue08/25/20 at 2100, For 30 days [facility] Medication administered onsite metoprolol (LOPRESSOR) split tablet 12.5 mg [id number] 08/25/2020 09:00:00 PM EST 12.5 mg Oral aborted 12.5 mg, Oral, 2 Times Daily, First dose on Tue08/25/20 at 2100, For 30 days [facility] Medication administered onsite sennosides, JAIL 35.2 MG/ML Oral Solution senna (SENOKO T) syrup 10 mL senna (SENOKOT) syrup 10 mL 08/24/2020 10:00:00 PM EST 10 mL Per G Tube active 10 mL, Per G Tube, Nightly, First dose o n 08/24/20 at 2200, For 30 days [facility] Medication administered onsite sodium chloride (preservative free) 0.9 % flush 3 mL [id number] 08/24/2020 04:00:00 PM EST 3 mL Intravenous active 3 mL, Intravenous, Every 8 hours, First dose on Sun 20 at 1600, For 30 days [facility] Medication administered onsite ropinirole 1 MG Oral Tablet ropinirole (REQUIP) tablet 0.5 mg ropinirole (REQUIP) tablet 0.5 mg 08/22/2020 09:00:00 PM EST 0.5 mg Per G Tube aborted 0.5 mg, Per G Tube, 2 Times Daily, First dose (after last modification) on Tue08/22/20 at 2100, For 46 doses [facility] Medication administered onsite oxcarbazepine 60 MG/ML Oral Suspension O Xcarbazepine (TRILEPTAL) 300 MG/5ML suspension 450 mg OXcarbazepine (TRILEPTAL) 300 MG/5ML suspension 450 mg 08/21/2020 10:00:00 PM EST 450 mg Per G Tube active 450 mg, Per G Tube, Every 8 hours, First dose on Tue08/21/20 at 2200, For 30 days [facility] Medication administered onsite oxcarbazepine 60 MG/ML Oral Suspension O Xcarbazepine (TRILEPTAL) 300 MG/5ML suspension 300 mg OXcarbazepine (TRILEPTAL) 300 MG/5ML suspension 300 mg 08/20/2020 10:00:00 PM EST 300 mg Per G Tube active 300 mg, Per G Tube, Every 8 hours, First dose (after last modification) on Tue08/20/20 at 2200, For 1 day [facility] Medication administered onsite Valproic Acid 50 MG/ML Oral Solution won proate sodium (DEPAKENE) 250 MG/5ML oral solution 750 mg valproate sodium (DEPAKENE) 250 MG/5ML oral solution 7 50 mg 08/20/2020 09:00:00 PM EST 750 mg Oral aborted 750 mg, Oral, Every 8 hours, First dose (after last modification) on Tue08/20/20 at 2100, For 10 doses [facility] Medication administered onsite Aspirin 81 MG Delayed Release Oral Tablet aspirin EC E C tablet 81 mg aspirin EC EC tablet 81 mg 08/20/2020 09:00:00 AM EST 81 mg Oral ac tive 81 mg, Oral, Daily Standard, First dose on Tue08/20/20 at 0900, For 30 days
Do not crush or chew
[facility] Medication administered onsite Valproic Acid 50 MG/ML Oral Solution won proate sodium (DEPAKENE) 250 MG/5ML oral solution 750 mg valproate sodium (DEPAKENE) 250 MG/5ML oral solution 7 50 mg 08/20/2020 03:00:00 AM EST 750 mg Oral aborted 750 mg, Oral, Every 8 hours, First dose (after last modification) on Tue08/20/20 at 0300, For 37 doses [facility] Medication administered onsite Valproic Acid 50 MG/ML Oral Solution won proate sodium (DEPAKENE) 250 MG/5ML oral solution 500 mg valproate sodium (DEPAKENE) 250 MG/5ML oral solution 5 00 mg 08/19/2020 08:45:00 PM EST 500 mg Oral completed 500 mg, Oral, Once, Tue08/19/20 at 2045, For 1 dose [facility] Medication administered onsite hypromellose 25 MG/ML Ophthalmic Solutio n hydroxypropyl methylcellulose (GONIOSOL) 2.5 % ophthalmic solution 1 drop hydroxypropyl methylcellulose (GONIOSOL) 2.5 % ophthalmic solution 1 drop 08/19/2020 05:00:00 PM EST 1 [drp] Both Eyes active 1 drop, Jose th Eyes, Three Times Daily Standard, First dose (after last modification) on Tue08/19/20 at 1700, For 20 days [facility] Medication administered onsite lidocaine (LIDODERM) 5 % patch 1 patch [id number] 0 11:00:00 AM EST 1 {patch} Transdermal active 1 patch, T ransdermal, Daily Standard, First dose on Tue08/16/20 at 1100, For 30 days
Apply to right shoulder for pain 12h on 12 off 12 hours on - 12 hours off
[facility] Medication administered onsite ropinirole 1 MG Oral Tablet ropinirole (REQUIP) tablet 1 mg ropinirole (REQUIP) tablet 1 mg 08/15/2020 09:00:00 PM EST 1 mg Per G Tube ab orted 1 mg, Per G Tube, 2 Times Daily, First dose (after last modification) on Tue08/15/20 at 2100, For 30 days [facility] Medication administered onsite ropinirole 1 MG Oral Tablet ropinirole (REQUIP) tablet 0.5 mg ropinirole (REQUIP) tablet 0.5 mg 08/15/2020 10:45:00 AM EST 0.5 mg Oral completed 0.5 mg, Oral, Once, Tue08/15/20 at 1045 , For 1 dose
This is in addition to morning dose given today.
[facility] Medication administered onsite Prednisone 5 MG Oral Tablet predniSONE (DELTASONE) tab let 5 mg predniSONE (DELTASONE) tablet 5 mg 08/07/2020 09:00:00 AM EST 5 mg Per G Tube active 5 mg, Per G Tube, Daily Sta ndard, First dose (after last modification) on [facility] 08/07/20 at 0900, For 45 doses
Take with food.
[facility] Medication administered onsite Thiamine 100 MG Oral Tablet thiamine (B-1) tablet 100 mg thiamine (B-1) tablet 100 mg 08/07/2020 09:00:00 AM EST 100 mg Per G Tube active 100 mg, Per G Tube, Daily Standard, First dose (after last modification) on [facility] 08/07/20 at 0900, For 45 doses [facility] Medication administered onsite COLLAGENASE 0.25 UNT/MG Topical Ointment collagenase ( SANTYL) ointment collagenase (SANTYL) ointment 08/07/2020 09:00:00 AM EST Top ical aborted Topical, Daily Anatoly shaffer, First dose (after last modification) on [facility] 08/07/20 at 0900, For 49 doses
See nursing wound care orders for instructions.
[facility] Medication administered onsite pantoprazole (PROTONIX) 2 mg/mL oral suspension 40 mg 08/07/2020 09:00:00 AM EST 40 mg Per G Tube active 40 mg , Per G Tube, Daily Standard, First dose (after last modification) on [facility] 08/07/20 at 0900, For 45 doses [facility] Medication administered onsite 0.4 ML Enoxaparin sodium 100 MG/ML Prefi lled Syringe enoxaparin sodium (LOVENOX) injection 40 mg enoxaparin sodium (LOVENOX) injection 40 mg 08/07/2020 09:00:00 AM EST 40 mg Subcutaneous active 40 mg, Subcutaneous, Daily Standard, First dose (after last modification) on [facility] 08/07/20 at 0900, For 45 doses [facility] Medication administered onsite Folic Acid 1 MG Oral Tablet folic acid (FOLVITE) table t 1 mg folic acid (FOLVITE) tablet 1 mg 08/07/2020 09:00:00 AM EST 1 mg Per G Tube active 1 mg, Per G Tube, Daily Standard, First dose (after last modification) on [facility] 08/07/20 at 0900, For 45 doses [facility] Medication administered onsite Amantadine Hydrochloride 10 MG/ML Oral S olution amantadine (SYMMETREL) solution 100 mg amantadine (SYMMETREL) solution 100 mg 08/07/2020 06:00:00 AM ES T 100 mg Per G Tube aborted 100 mg, P er G Tube, 2 Times Daily, First dose (after last modification) on [facility] 08/07/20 at 0600, For 47 doses [facility] Medication administered onsite modafinil 100 MG Oral Tablet modafinil (PROVIGIL) tabl et 100 mg modafinil (PROVIGIL) tablet 100 mg 08/07/2020 06:00:00 AM EST 100 mg Per G Tu be aborted 100 mg, Per G Tube, Daily Standard, First dose (after last modification) on [facility] 08/07/20 at 0600, For 23 doses [facility] Medication administered onsite ezetimibe 10 MG Oral Tablet ezetimibe (ZETIA) tablet 1 0 mg ezetimibe (ZETIA) tablet 10 mg 08/06/2020 10:00:00 PM EST 10 mg Oral activ e 10 mg, Oral, Nightly, First dose (after last modification) on Tue08/06/20 at 2200, For 46 doses [facility] Medication administered onsite Metoclopramide 1 MG/ML Oral Solution met oclopramide (REGLAN) 5 MG/5ML solution 5 mg metoclopramide (REGLAN) 5 MG/5ML solution 5 mg 08/06/2020 09:00: 00 PM EST 5 mg Per G Tube aborted 5 mg, Per G Tube, 2 Times Daily, First dose (after last modification) on Tue08/06/20 at 2100, For 47 doses [facility] Medication administered onsite hypromellose 25 MG/ML Ophthalmic Solutio n hydroxypropyl methylcellulose (GONIOSOL) 2.5 % ophthalmic solution 1 drop hydroxypropyl methylcellulose (GONIOSOL) 2.5 % ophthalmic solution 1 drop 08/06/2020 09:00:00 PM EST 1 [drp] Both Eyes aborted 1 drop, Jose th Eyes, 2 Times Daily, First dose (after last modification) on Tue08/06/20 at 2100, For 47 doses [facility] Medication administered onsite Valproic Acid 50 MG/ML Oral Solution won proate sodium (DEPAKENE) 250 MG/5ML oral solution 625 mg valproate sodium (DEPAKENE) 250 MG/5ML oral solution 6 25 mg 08/06/2020 07:00:00 PM EST 625 mg Oral aborted 625 mg, Oral, Every 8 hours, First dose (after last modification) on Tue08/06/20 at 1900, For 77 doses [facility] Medication administered onsite ropinirole 1 MG Oral Tablet ropinirole (REQUIP) tablet 0.5 mg ropinirole (REQUIP) tablet 0.5 mg 08/06/2020 05:00:00 PM EST 0.5 mg Per G Tube aborted 0.5 mg, Per G Tube, Three Times Daily Standard, First dose (after last modification) on Tue08/06/20 at 1700, For 71 doses [facility] Medication administered onsite Levocarnitine 330 MG Oral Tablet levOCARNitine (CARNIT OR) tablet 330 mg levOCARNitine (CARNITOR) tablet 330 mg 08/06/2020 05:00:00 PM EST 3 30 mg Oral aborted 330 mg, Oral, T hree Times Daily Standard, First dose (after last modification) on Tue08/06/20 at 1700, For 155 doses [facility] Medication administered onsite NaCl infusion 0.9 % [id number] 08/06/2020 03:45:00 PM EST Intravenous aborted at 100 mL/hr, Intrav enous, Continuous, Starting Tue08/06/20 at 1545, For 27 days [facility] Medication administered onsite Acetaminophen 325 MG Oral Tablet acetaminophen (TYLENO L) tablet 650 mg acetaminophen (TYLENOL) tablet 650 mg 08/06/2020 03:36:33 PM EST 65 0 mg Oral aborted 650 mg, Oral, E very 4 hours PRN, All Levels of Pain (Pain Scale Score 1-10), Headaches, Fever, Starting Tue08/06/20 at 1536, For 22 days 18 hours
Maximum daily dose of acetaminophen is 3,000 mg from all sources in 24 hours.
[facility] Medication administered onsite Valproic Acid 50 MG/ML Oral Solution Won proate Sodium 250 MG/5ML Oral Solution (DEPAKENE) Valproate Sodium 250 MG/5ML Oral Solution (DEPAKENE) 1 10/06/2019 12:00:00 AM EST 625 mg Oral aborted Take 12.5 mLs by mouth every 8 (eight) hours [facility] Levocarnitine 330 MG Oral Tablet levOCARNitine 330 MG Oral Tablet (CARNITOR) levOCARNitine 330 MG Oral Tablet (CARNITOR) 08/06/2020 12:00:00 AM EST 330 mg Oral aborted Take 1 tablet by sherlyn th Three times daily [facility] 0.4 ML Enoxaparin sodium 100 MG/ML Prefi lled Syringe enoxaparin sodium (LOVENOX) injection 40 mg enoxaparin sodium (LOVENOX) injection 40 mg 08/05/2020 09:00:00 AM EST 40 mg Subcutaneous aborted 40 mg, Subcutaneous, Daily Standard, First dose (after last modification) on Tue08/05/20 at 0900, For 25 doses [facility] Medication administered onsite COLLAGENASE 0.25 UNT/MG Topical Ointment collagenase ( SANTYL) ointment collagenase (SANTYL) ointment 08/05/2020 08:45:00 AM EST Top ical aborted Topical, Daily Anatoly dard, First dose on Tue08/05/20 at 0845, For 28 days
See nursing wound care orders for instructions.
[facility] Medication administered onsite Valproic Acid 50 MG/ML Oral Solution won proate sodium (DEPAKENE) 250 MG/5ML oral solution 625 mg valproate sodium (DEPAKENE) 250 MG/5ML oral solution 6 25 mg 08/04/2020 07:00:00 PM EST 625 mg Oral aborted 625 mg, Oral, Every 8 hours, First dose (after last modification) on Tue08/04/20 at 1900, For 83 doses [facility] Medication administered onsite Cefazolin 2000 MG Injection ceFAZolin (ANCEF) IVPB 2 g in dextrose (premix) ceFAZolin (ANCEF) IVPB 2 g in dextrose (premix) 08/04/2020 06:30:00 PM EST 2 g Intravenous completed 2 g, Int ravenous, Administer over 30 Minutes, Every 8 hours, First dose on 08/04/20 at 1830, For 16 hours
3 gram for patients weighing >/= to 120 kg
[facility] Medication administered onsite NaCl infusion 0.9 % [id number] 08/04/2020 12:00:00 AM EST Intravenous aborted at 100 mL/hr, Intrav enous, Continuous, Starting 08/04/20 at 0000, For 30 days [facility] Medication administered onsite Levocarnitine 330 MG Oral Tablet levOCARNitine (CARNIT OR) tablet 330 mg levOCARNitine (CARNITOR) tablet 330 mg 08/03/2020 09:00:00 AM EST 3 30 mg Oral aborted 330 mg, Oral, T hree Times Daily Standard, First dose (after last modification) on 08/03/20 at 0900, For 30 days [facility] Medication administered onsite Valproic Acid 50 MG/ML Oral Solution won proate sodium (DEPAKENE) 250 MG/5ML oral solution 500 mg valproate sodium (DEPAKENE) 250 MG/5ML oral solution 5 00 mg 08/02/2020 12:30:00 AM EDT 500 mg Oral aborted 500 mg, Oral, Every 8 hours, First dose (after last modification) on Tue08/02/20 at 0030, For 30 days [facility] Medication administered onsite Levocarnitine 330 MG Oral Tablet levOCARNitine (CARNIT OR) tablet 990 mg levOCARNitine (CARNITOR) tablet 990 mg 08/01/2020 09:00:00 PM EDT 9 90 mg Oral aborted 990 mg, Oral, 2 Times Daily, First dose on Tue08/01/20 at 2100, For 30 days [facility] Medication administered onsite Valproic Acid 50 MG/ML Oral Solution won proate sodium (DEPAKENE) 250 MG/5ML oral solution 500 mg valproate sodium (DEPAKENE) 250 MG/5ML oral solution 5 00 mg 08/01/2020 10:15:00 AM EDT 500 mg Oral aborted 500 mg, Oral, Every 6 hours, First dose on Tue08/01/20 at 1015, For 30 days [facility] Medication administered onsite ezetimibe 10 MG Oral Tablet ezetimibe (ZETIA) tablet 1 0 mg ezetimibe (ZETIA) tablet 10 mg 07/31/2020 10:00:00 PM EDT 10 mg Oral abort ed 10 mg, Oral, Nightly, First dose on Tue07/31/20 at 2200, For 30 days [facility] Medication administered onsite Amantadine Hydrochloride 10 MG/ML Oral S olution amantadine (SYMMETREL) solution 100 mg amantadine (SYMMETREL) solution 100 mg 07/31/2020 09:00:00 AM ED T 100 mg Per G Tube aborted 100 mg, P er G Tube, 2 Times Daily, First dose on Tue07/31/20 at 0900, For 30 days [facility] Medication administered onsite hypromellose 25 MG/ML Ophthalmic Solutio n hydroxypropyl methylcellulose (GONIOSOL) 2.5 % ophthalmic solution 1 drop hydroxypropyl methylcellulose (GONIOSOL) 2.5 % ophthalmic solution 1 drop 07/31/2020 09:00:00 AM EDT 1 [drp] Both Eyes aborted 1 drop, Jose th Eyes, 2 Times Daily, First dose on Tue07/31/20 at 0900, For 30 days [facility] Medication administered onsite Folic Acid 1 MG Oral Tablet folic acid (FOLVITE) table t 1 mg folic acid (FOLVITE) tablet 1 mg 07/31/2020 09:00:00 AM EDT 1 mg Per G Tube aborted 1 mg, Per G Tube, Daily Sta ndard, First dose on Tue07/31/20 at 0900, For 30 days [facility] Medication administered onsite Metoclopramide 1 MG/ML Oral Solution met oclopramide (REGLAN) 5 MG/5ML solution 5 mg metoclopramide (REGLAN) 5 MG/5ML solution 5 mg 07/31/2020 09:00: 00 AM EDT 5 mg Per G Tube aborted 5 mg, Per G Tube, 2 Times Daily, First dose on Tue07/31/20 at 0900, For 30 days [facility] Medication administered onsite pantoprazole (PROTONIX) 2 mg/mL oral suspension 40 mg 07/31/2020 09:00:00 AM EDT 40 mg Per G Tube aborted 40 mg , Per G Tube, Daily Standard, First dose on Tue07/31/20 at 0900, For 30 days [facility] Medication administered onsite modafinil 100 MG Oral Tablet modafinil (PROVIGIL) tabl et 100 mg modafinil (PROVIGIL) tablet 100 mg 07/31/2020 09:00:00 AM EDT 100 mg Per G Tu be aborted 100 mg, Per G Tube, Daily Standard, First dose on Martha 07/31/20 at 0900, For 30 days [facility] Medication administered onsite ropinirole 1 MG Oral Tablet ropinirole (REQUIP) tablet 1 mg ropinirole (REQUIP) tablet 1 mg 07/31/2020 09:00:00 AM EDT 1 mg Per G Tube ab orted 1 mg, Per G Tube, Three Times Daily Standard, First dose on Martha 07/31/20 at 0900, For 30 days [facility] Medication administered onsite Prednisone 1 MG Oral Tablet predniSONE (DELTASONE) tab let 5 mg predniSONE (DELTASONE) tablet 5 mg 07/31/2020 09:00:00 AM EDT 5 mg Per G Tub e aborted 5 mg, Per G Tube, Da maria a Standard, First dose on Martha 07/31/20 at 0900, For 30 days
Take with food.
[facility] Medication administered onsite Thiamine 100 MG Oral Tablet thiamine (B-1) tablet 100 mg thiamine (B-1) tablet 100 mg 07/31/2020 09:00:00 AM EDT 100 mg Per G Tube aborted 100 mg, Per G Tube, Daily Standard, First dose on Martha 07/31/20 at 0900, For 30 days [facility] Medication administered onsite 0.4 ML Enoxaparin sodium 100 MG/ML Prefi lled Syringe enoxaparin sodium (LOVENOX) injection 40 mg enoxaparin sodium (LOVENOX) injection 40 mg 07/31/2020 09:00:00 AM EDT 40 mg Subcutaneous aborted 40 mg, Subcutaneous, Daily Standard, First dose on Martha 07/31/20 at 0900, For 30 days [facility] Medication administered onsite Valproic Acid 100 MG/ML Injectable Solut ion valproate sodium (DEPACON) injection 500 mg valproate sodium (DEPACON) injection 500 mg 07/31/2020 06:00 :00 AM EDT 500 mg Intravenous aborted 500 mg, Intr avenous, at 40 mL/hr, Every 6 hours Standard (4 times per day), First dose on Martha 07/31/20 at 0600, For 30 days
Suggested dilution 50 mL NS, infuse over 30 minutes
[facility] Medication administered onsite NaCl infusion 0.9 % [id number] 07/31/2020 03:15:00 AM EDT Intravenous aborted at 100 mL/hr, Intrav enous, Continuous, Starting [facility] 07/31/20 at 0315, For 30 days [facility] Medication administered onsite 4 ML Labetalol hydrochloride 5 MG/ML [place] labetalol (TRANDATE) injection 10 mg labetalol (TRANDATE) injection 10 mg 07/31/2020 03:05:50 AM EDT 10 mg Intravenous aborted 10 mg, Intrav enous, Every 6 hours PRN, High Blood Pressure, Starting [facility] 07/31/20 at 0305, For 30 days
If BP > 160
[facility] Medication administered onsite Acetaminophen 325 MG Oral Tablet acetaminophen (TYLENO L) tablet 650 mg acetaminophen (TYLENOL) tablet 650 mg 07/31/2020 03:05:50 AM EDT 65 0 mg Oral aborted 650 mg, Oral, E very 4 hours PRN, All Levels of Pain (Pain Scale Score 1-10), Headaches, Fever, Starting [facility] 07/31/20 at 0305, For 30 days
Maximum daily dose of acetaminophen is 3,000 mg from all sources in 24 hours.
[facility] Medication administered onsite Folic Acid 1 MG Oral Tablet Folic Acid 1 MG Oral Table t (FOLVITE) Folic Acid 1 MG Oral Tablet (FOLVITE) 07/31/2020 12:00:00 AM EDT 1 mg Per G Tu be aborted 1 tablet by Per G Tube route virgen [facility] Medication administered onsite ezetimibe 10 MG Oral Tablet Ezetimibe 10 MG Oral Table t (ZETIA) Ezetimibe 10 MG Oral Tablet (ZETIA) 07/31/2020 12:00:00 AM EDT 10 mg Per G Tube aborted 1 tablet by Per G Tube route daily [facility] Medication administered onsite pantoprazole 2 mg/mL PO oral suspension 07/31/2020 12:00:0 0 AM EDT 40 mg Per G Tube aborted 20 mLs by Per G Tube route daily [facility] Medication administered onsite sennosides, JAIL 8.6 MG Oral Tablet Senna 8.6 MG Oral T ablet Senna 8.6 MG Oral Tablet 07/31/2020 12:00:00 AM EDT 2 {tbl} Per G Tube aborte d 2 tablets by Per G Tube route nightly as needed [facility] Medication administered onsite Valproic Acid 50 MG/ML Oral Solution Won proate Sodium 250 MG/5ML Oral Solution (DEPAKENE) Valproate Sodium 250 MG/5ML Oral Solution (DEPAKENE) 1 12:00:00 AM EDT 500 mg Per G Tube aborted 10 mLs by Per G Tube route every 8 (eight) hours [facility] Medication administered onsite Prednisone 5 MG Oral Tablet predniSONE 5 MG Oral Table t (DELTASONE) predniSONE 5 MG Oral Tablet (DELTASONE) 07/31/2020 12:00:00 AM EDT 5 mg Per G Tube aborted 1 tablet by Per G Tube route virgen ly [facility] Medication administered onsite Meclizine Hydrochloride 12.5 MG Oral Tab let Meclizine HCl 12.5 MG Oral Tablet (ANTIVERT) Meclizine HCl 12.5 MG Oral Tablet (ANTIVERT) 0 12:00:00 AM EDT 12.5 mg Oral aborted Take 1 t ablet by mouth Three times daily as needed for Dizziness for up to 10 days [facility] Medication administered onsite Amantadine Hydrochloride 10 MG/ML Oral S olution Amantadine HCl 50 MG/5ML Oral Syrup (SYMMETREL) Amantadine HCl 50 MG/5ML Oral Syrup (SYMMETREL) 2019 12:00:00 AM EDT 100 mg Per G Tube aborted 10 mLs by Per G Tube route Two Times Daily for 7 days [facility] Medication administered onsite Acetaminophen 32 MG/ML Oral Solution Tai taminophen 160 MG/5ML Oral Solution (TYLENOL) Acetaminophen 160 MG/5ML Oral Solution (TYLENOL) 07/31 12:00:00 AM EDT 650 mg Per G Tube aborted 20 mL s by Per G Tube route Three times daily for 10 days [facility] Medication administered onsite Thiamine 100 MG Oral Tablet Thiamine HCl 100 MG Oral T ablet (B-1) Thiamine HCl 100 MG Oral Tablet (B-1) 07/31/2020 12:00:00 AM EDT 100 mg Per G Tu be aborted 1 tablet by Per G Tube route virgen ly [facility] Medication administered onsite ropinirole 1 MG Oral Tablet rOPINIRole HCl 1 MG Oral T ablet (REQUIP) rOPINIRole HCl 1 MG Oral Tablet (REQUIP) 07/31/2020 12:00:00 AM EDT 1 mg Per G Tube aborted 1 tablet by Per G Tube route Thr ee times daily [facility] Medication administered onsite hypromellose 25 MG/ML Ophthalmic Solutio n Hypromellose 2.5 % Ophthalmic Solution (GONIOSOL) Hypromellose 2.5 % Ophthalmic Solution (GONIOSOL) 07/04 12:00:00 AM EDT 1 [drp] Both Eyes aborted Place 1 drop into both eyes Two Times Daily [facility] Medication administered onsite 0.4 ML Enoxaparin sodium 100 MG/ML Prefi lled Syringe Enoxaparin Sodium 40 MG/0.4ML Subcutaneous Solution (LOVENOX) Enoxaparin Sodium 40 MG/0.4ML Subcutaneous Solution (LOVENOX) 07/31/2020 12:00:00 AM EDT 40 mg Subcutaneous aborted Inject 0.4 mLs into the s kin daily [facility] Medication administered onsite COLLAGENASE 0.25 UNT/MG Topical Ointment Collagenase 250 UNIT/GM External Ointment (SANTYL) Collagenase 250 UNIT/GM External Ointment (SANTYL) 12:00:00 AM EDT aborted Apply f or wound care [facility] Medication administered onsite Clotrimazole 10 MG Oral Lozenge Clotrima zole 10 MG Mouth/Throat Dorothy (MYCELEX) Clotrimazole 10 MG Mouth/Throat Dorothy (MYCELEX) 07/31/2020 12:0 0:00 AM EDT 10 mg Oral aborted Take 1 sandy enge by mouth Four times daily for 10 days [facility] Medication administered onsite Metoclopramide 1 MG/ML Oral Solution Met oclopramide HCl 5 MG/5ML Oral Solution (REGLAN) Metoclopramide HCl 5 MG/5ML Oral Solution (REGLAN) 12:00:00 AM EDT 5 mg Per G Tube aborted 5 mLs by Per G Tube route Two Times Daily [facility] Medication administered onsite modafinil 100 MG Oral Tablet Modafinil 100 MG Oral Tab let (PROVIGIL) Modafinil 100 MG Oral Tablet (PROVIGIL) 07/31/2020 12:00:00 AM EDT 100 mg P er G Tube aborted 1 tablet by Per G Tube route daily , Max Daily Dose: 100 mg [facility] Medication administered onsite Ondansetron 4 MG Oral Tablet Ondansetron HCl 4 MG Oral Tablet (ZOFRAN) Ondansetron HCl 4 MG Oral Tablet (ZOFRAN) 07/31/2020 12:00:00 AM EDT 4 mg Per G Tube aborted 1 tablet by Pe r G Tube route every 12 (twelve) hours for 7 days [facility] Medication administered onsite Valproic Acid 100 MG/ML Injectable Solut ion valproate sodium (DEPACON) injection 1,000 mg valproate sodium (DEPACON) injection 1,000 mg 07/30/20 11:45:00 PM EDT 1000 mg Intravenous active 1,00 0 mg, Intravenous, Once, Tue07/30/20 at 2345, For 1 dose
Mix in 50 ml NS and infuse over 1 hour
[facility] Medication administered onsite 1 ML Lorazepam 2 MG/ML Injection LORazepam (ATIVAN) in jection 2 mg LORazepam (ATIVAN) injection 2 mg 07/30/2020 11:45:00 PM EDT 2 mg Intraveno us completed 2 mg, Intravenous, Once, Tue at 2345, For 1 dose [facility] Medication administered onsite 1 ML Lorazepam 2 MG/ML Injection LORazepam (ATIVAN) 2 MG/ML injection LORazepam (ATIVAN) 2 MG/ML injection 07/30/2020 11:20:57 PM EDT completed Starting Tue07/30/20 at 2320, For 1 dose
Mari, Mel : asat override
[facility] Medication administered onsite hypromellose 25 MG/ML Ophthalmic Solutio n hydroxypropyl methylcellulose (GONIOSOL) 2.5 % ophthalmic solution 1 drop hydroxypropyl methylcellulose (GONIOSOL) 2.5 % ophthalmic solution 1 drop 07/30/2020 09:00:00 PM EDT 1 [drp] Both Eyes aborted 1 drop, Jose th Eyes, 2 Times Daily, First dose on Tue07/30/20 at 2100, For 30 days [facility] Medication administered onsite Metoclopramide 1 MG/ML Oral Solution met oclopramide (REGLAN) 5 MG/5ML solution 5 mg metoclopramide (REGLAN) 5 MG/5ML solution 5 mg 07/30/2020 08:00: 00 PM EDT 5 mg Per G Tube aborted 5 mg, Per G Tube, 2 Times Daily, First dose (after last modification) on Tue07/30/20 at 2000, For 29 doses [facility] Medication administered onsite Clotrimazole 10 MG Oral Lozenge clotrimazole (MYCELEX) dorothy 10 mg clotrimazole (MYCELEX) dorothy 10 mg 07/30/2020 05:00:00 PM EDT 10 mg Oral aborted 10 mg, Oral, Four Times Daily Standard, First dose on Tue07/30/20 at 1700, For 30 days
Dissolve slowly in mouth
[facility] Medication administered onsite Meclizine Hydrochloride 12.5 MG Oral Tablet meclizine (ANTIVERT) tablet 12.5 mg meclizine (ANTIVERT) tablet 12.5 mg 07/30/2020 08:23:10 AM EDT 1 2.5 mg Per G Tube aborted 12.5 mg, Per G Tube, Three Times Daily-PRN, Dizziness, Starting Tue07/30/20 at 0823, For 30 days
Crush
[facility] Medication administered onsite Acetaminophen 32 MG/ML Oral Solution tai taminophen (TYLENOL) 160 MG/5ML solution (ADULT) 650 mg acetaminophen (TYLENOL) 160 MG/5ML solution (ADULT) 65 0 mg 07/28/2020 02:00:00 PM EDT 650 mg Per G Tube aborted 650 mg, Per G Tube, Three Times Daily, First dose (after last modification) on Tue07/28/20 at 1400, For 10 days
Maximum daily dose of acetaminophen is 3,000 mg from all sources in 24 hours.
[facility] Medication administered onsite Amantadine Hydrochloride 10 MG/ML Oral S olution amantadine (SYMMETREL) solution 100 mg amantadine (SYMMETREL) solution 100 mg 07/25/2020 04:00:00 PM ED T 100 mg Per G Tube aborted 100 mg, P er G Tube, 2 Times Daily, First dose (after last modification) on Tue07/25/20 at 1600, For 30 days [facility] Medication administered onsite Ondansetron 4 MG Oral Tablet ondansetron (ZOFRAN) tabl et 4 mg ondansetron (ZOFRAN) tablet 4 mg 07/25/2020 04:00:00 PM EDT 4 mg Per G Tube aborted 4 mg, Per G Tube, Every 12 hours Stand shari (2 times per day), First dose (after last modification) on Tue07/25/20 at 1600, For 59 doses [facility] Medication administered onsite Ondansetron 4 MG Oral Tablet ondansetron (ZOFRAN) tabl et 4 mg ondansetron (ZOFRAN) tablet 4 mg 07/25/2020 11:30:00 AM EDT 4 mg Per G Tube aborted 4 mg, Per G Tube, Every 12 hours Stand shari (2 times per day), First dose on Tue07/25/20 at 1130, For 30 days [facility] Medication administered onsite Amantadine Hydrochloride 10 MG/ML Oral S olution amantadine (SYMMETREL) solution 100 mg amantadine (SYMMETREL) solution 100 mg 07/25/2020 06:00:00 AM ED T 100 mg Per G Tube aborted 100 mg, P er G Tube, Daily Standard, First dose (after last modification) on Tue07/25/20 at 0600, For 30 days [facility] Medication administered onsite Valproic Acid 100 MG/ML Injectable Solut ion valproate sodium (DEPACON) injection 500 mg valproate sodium (DEPACON) injection 500 mg 07/24/2020 02:15 :00 AM EDT 500 mg Intravenous active 500 mg, Intr avenous, Once, [facility] 07/24/20 at 0215, For 1 dose
Administer at a rate of 1 g over 15 minutes. Suggested dilution 50 mL NS
[facility] Medication administered onsite Fluconazole 200 MG Oral Tablet fluconazole (DIFLUCAN) tablet 200 mg fluconazole (DIFLUCAN) tablet 200 mg 07/21/2020 10:00:00 AM EDT 200 mg Oral completed 200 mg, Oral, Once, 07/21/20 at 1000 , For 1 dose [facility] Medication administered onsite COLLAGENASE 0.25 UNT/MG Topical Ointment collagenase ( SANTYL) ointment collagenase (SANTYL) ointment 07/17/2020 09:00:00 AM EDT Top ical aborted Topical, Daily Anatoly dard, First dose on Martha 07/17/20 at 0900, For 28 days
See nursing wound care orders for application instructions to right hip wound. Start 07/17.
[facility] Medication administered onsite Metoprolol Tartrate 25 MG Oral Tablet me toprolol tartrate (LOPRESSOR) tablet 25 mg metoprolol tartrate (LOPRESSOR) tablet 25 mg 07/16/2020 08:00:00 PM EDT 25 mg Per G Tube aborted 25 mg, Pe r G Tube, Every 12 hours, First dose (after last modification) on Tue07/16/20 at 2000, For 33 doses
Check vitals. HOLD SBP <110
[facility] Medication administered onsite Valproic Acid 50 MG/ML Oral Solution won proate sodium (DEPAKENE) 250 MG/5ML oral solution 500 mg valproate sodium (DEPAKENE) 250 MG/5ML oral solution 5 00 mg 07/16/2020 12:00:00 PM EDT 500 mg Per G Tube aborted 500 mg, Per G Tube, Every 8 hours Standard (3 times per day), First dose (after last modification) on Tue07/16/20 at 1200, For 52 doses [facility] Medication administered onsite modafinil 100 MG Oral Tablet modafinil (PROVIGIL) tabl et 100 mg modafinil (PROVIGIL) tablet 100 mg 07/16/2020 06:00:00 AM EDT 100 mg Per G Tu be aborted 100 mg, Per G Tube, Daily Standard, First dose (after last modification) on Tue07/16/20 at 0600, For 19 doses [facility] Medication administered onsite ezetimibe 10 MG Oral Tablet ezetimibe (ZETIA) tablet 1 0 mg ezetimibe (ZETIA) tablet 10 mg 07/16/2020 06:00:00 AM EDT 10 mg Per G Tube a borted 10 mg, Per G Tube, Daily Standard, First dose (after last modification) on Tue07/16/20 at 0600, For 19 doses [facility] Medication administered onsite Prednisone 5 MG Oral Tablet predniSONE (DELTASONE) tab let 5 mg predniSONE (DELTASONE) tablet 5 mg 07/16/2020 06:00:00 AM EDT 5 mg Per G Tub e aborted 5 mg, Per G Tube, Da maria a Standard, First dose (after last modification) on Tue07/16/20 at 0600, For 19 doses
Take with food.
[facility] Medication administered onsite Folic Acid 1 MG Oral Tablet folic acid (FOLVITE) table t 1 mg folic acid (FOLVITE) tablet 1 mg 07/16/2020 06:00:00 AM EDT 1 mg Per G Tube aborted 1 mg, Per G Tube, Daily Sta ndard, First dose (after last modification) on Tue07/16/20 at 0600, For 19 doses [facility] Medication administered onsite pantoprazole (PROTONIX) 2 mg/mL oral suspension 40 mg 07/16/2020 06:00:00 AM EDT 40 mg Per G Tube aborted 40 mg , Per G Tube, Daily Standard, First dose (after last modification) on Tue07/16/20 at 0600, For 19 doses [facility] Medication administered onsite Thiamine 100 MG Oral Tablet thiamine (B-1) tablet 100 mg thiamine (B-1) tablet 100 mg 07/16/2020 06:00:00 AM EDT 100 mg Per G Tube aborted 100 mg, Per G Tube, Daily Standard, First dose (after last modification) on Tue07/16/20 at 0600, For 19 doses [facility] Medication administered onsite Metoprolol Tartrate 25 MG Oral Tablet me toprolol tartrate (LOPRESSOR) tablet 25 mg metoprolol tartrate (LOPRESSOR) tablet 25 mg 07/15/2020 08:00:00 PM EDT 25 mg Per G Tube aborted 25 mg, Pe r G Tube, Every 12 hours, First dose (after last modification) on Tue07/15/20 at 2000, For 35 doses
Check vitals. HOLD SBP <100
[facility] Medication administered onsite Metoclopramide 1 MG/ML Oral Solution met oclopramide (REGLAN) 5 MG/5ML solution 5 mg metoclopramide (REGLAN) 5 MG/5ML solution 5 mg 07/15/2020 08:00: 00 PM EDT 5 mg Oral aborted 5 mg, Oral , 2 Times Daily, First dose (after last modification) on Tue07/15/20 at 1999, For 59 doses [facility] Medication administered onsite Amantadine Hydrochloride 10 MG/ML Oral S olution amantadine (SYMMETREL) solution 100 mg amantadine (SYMMETREL) solution 100 mg 07/15/2020 08:00:00 PM ED T 100 mg Per G Tube aborted 100 mg, P er G Tube, 2 Times Daily, First dose (after last modification) on Tue07/15/20 at 1999, For 27 doses [facility] Medication administered onsite ropinirole 1 MG Oral Tablet ropinirole (REQUIP) tablet 1 mg ropinirole (REQUIP) tablet 1 mg 07/15/2020 08:00:00 PM EDT 1 mg Per G Tube ab orted 1 mg, Per G Tube, Three Times Daily Standard, First dose (after last modification) on Tue07/15/20 at 1999, For 57 doses [facility] Medication administered onsite Valproic Acid 50 MG/ML Oral Solution won proate sodium (DEPAKENE) 250 MG/5ML oral solution 500 mg valproate sodium (DEPAKENE) 250 MG/5ML oral solution 5 00 mg 07/15/2020 05:02:29 PM EDT 500 mg Per G Tube aborted 500 mg, Per G Tube, Every 8 hours Standard (3 times per day), First dose (after last modification) on Tue07/15/20 at 1999, For 7 doses [facility] Medication administered onsite Metoclopramide 1 MG/ML Oral Solution met oclopramide (REGLAN) 5 MG/5ML solution 5 mg metoclopramide (REGLAN) 5 MG/5ML solution 5 mg 07/15/2020 04:00: 00 PM EDT 5 mg Oral aborted 5 mg, Oral , 2 Times Daily, First dose (after last modification) on Tue07/15/20 at 1600, For 30 days [facility] Medication administered onsite Metoclopramide 1 MG/ML Oral Solution met oclopramide (REGLAN) 5 MG/5ML solution 5 mg metoclopramide (REGLAN) 5 MG/5ML solution 5 mg 07/13/2020 10:15: 00 PM EDT 5 mg Oral aborted 5 mg, Oral , Before Meals - Three Times Daily, First dose on Tue07/13/20 at 2215, For 7 doses [facility] Medication administered onsite sodium chloride 0.9 % bolus 500 mL [id number] 07/13/2020 04:15:00 PM EDT 500 mL Intravenous completed 500 mL, Intravenous, Once, Tue07/13/20 at 1615, For 1 dose
Run over 6 hours
[facility] Medication administered onsite potassium chloride (K-DUR) dissolvable tablet 40 mEq [id number] 07/11/2020 10:15:00 AM EDT 40 meq Per G Tube completed 40 mEq, Per G Tube, Once, Tue07/11/20 at 1015, For 1 dose
May be dissolved in water for patients with a G-Tube or unable to swallow. If concern for clogging G-Tube, may contact Pharmacy to switch formulation to a powder packet.
[facility] Medication administered onsite potassium chloride (K-DUR) dissolvable tablet 40 mEq [id number] 07/11/2020 09:00:00 AM EDT 40 meq Per G Tube completed 40 mEq, Per G Tube, Daily Standard, First dose on Tue07/11/20 at 0900, For 3 days
May be dissolved in water for patients with a G-Tube or unable to swallow. If concern for clogging G-Tube, may contact Pharmacy to switch formulation to a powder packet.
[facility] Medication administered onsite sodium chloride (preservative free) 0.9 % flush 10 mL [id number] 07/10/2020 06:00:00 PM EDT 10 mL Intravenous aborted 10 mL, Intravenous, Every 12 hours, First dose on Tue07/10/20 at 1800, For 30 days
WHEN NOT IN USE - Verify blood return before use. Flush with 10 mL of Sodium Chloride 0.9 % and 2 mL Heparin 10 units/mL. Reference Policy CM C-34H Central Line Policy.
[facility] Medication administered onsite heparin sodium, porcine 10 UNT/ML Inject able Solution heparin lock flush 10 UNIT/ML injection 20 Units heparin lock flush 10 UNIT/ML injection 20 Units 07/10/2020 06:00:00 PM EDT 20 U Intracatheter aborted 20 Units, Intracatheter, Every 12 hours, First dose on Martha 07/10/20 at 1800, For 30 days
WHEN NOT IN USE - Verify blood return before use. Flush with 10 mL of Sodium Chloride 0.9 % and 2 mL Heparin 10 units/mL. Reference Policy C-34 Central Line Policy.
[facility] Medication administered onsite heparin sodium, porcine 10 UNT/ML Inject able Solution heparin lock flush 10 UNIT/ML injection 20 Units heparin lock flush 10 UNIT/ML injection 20 Units 07/10/2020 11:16:14 AM EDT 20 U Intravenous aborted 20 Units, Intravenous, PRN, Line Care, Starting Martha 07/10/20 at 1116, For 30 days
Verify blood return before use. Flush with 10 mL of Sodium Chloride 0.9 % before and after infusions or blood sampling followed-by 2 mL Heparin 10 units/mL to lock. Reference Policy [facility] Central Line Policy.
[facility] Medication administered onsite sodium chloride (preservative free) 0.9 % flush 10 mL [id number] 07/10/2020 11:16:14 AM EDT 10 mL Intravenous aborted 10 mL, Intravenous, PRN, Line Care, Starting Martha 07/10/20 at 1116, For 30 days
Verify blood return before use. Flush with 10 mL of Sodium Chloride 0.9 % before and after infusions or blood sampling followed-by 2 mL Heparin 10 units/mL to lock. Reference Policy [facility] Central Line Policy.
[facility] Medication administered onsite Loratadine 10 MG Oral Tablet loratadine (CLARITIN) tab let 10 mg loratadine (CLARITIN) tablet 10 mg 07/09/2020 08:00:00 PM EDT 10 mg Per G Tub e aborted 10 mg, Per G Tube, D aily Standard, First dose (after last modification) on Tue07/09/20 at 2000, For 27 doses [facility] Medication administered onsite Metoclopramide 10 MG Oral Tablet metoclopramide (JOSE M N) tablet 5 mg metoclopramide (REGLAN) tablet 5 mg 07/09/2020 05:30:00 PM EDT 5 mg Per G Tube aborted 5 mg, Per G Tu be, Before Meals - Three Times Daily, First dose on Tue07/09/20 at 1730, For 2 days [facility] Medication administered onsite Clotrimazole 10 MG Oral Lozenge clotrimazole (MYCELEX) dorothy 10 mg clotrimazole (MYCELEX) dorothy 10 mg 07/09/2020 12:00:00 PM EDT 10 mg Oral aborted 10 mg, Oral, Four Times Daily, First dose on Tue07/09/20 at 1200, For 99 doses
Dissolve slowly in mouth
[facility] Medication administered onsite modafinil 100 MG Oral Tablet modafinil (PROVIGIL) tabl et 100 mg modafinil (PROVIGIL) tablet 100 mg 07/09/2020 09:30:00 AM EDT 100 mg Per G Tu be aborted 100 mg, Per G Tube, Daily Standard, First dose (after last modification) on Tue07/09/20 at 0930, For 17 doses [facility] Medication administered onsite Valproic Acid 50 MG/ML Oral Solution won proate sodium (DEPAKENE) 250 MG/5ML oral solution 500 mg valproate sodium (DEPAKENE) 250 MG/5ML oral solution 5 00 mg 07/09/2020 09:15:00 AM EDT 500 mg Per G Tube aborted 500 mg, Per G Tube, Every 8 hours Standard, First dose (after last modification) on Tue07/09/20 at 0915, For 24 doses [facility] Medication administered onsite Thiamine 100 MG Oral Tablet thiamine (B-1) tablet 100 mg thiamine (B-1) tablet 100 mg 07/09/2020 09:15:00 AM EDT 100 mg Per G Tube aborted 100 mg, Per G Tube, Daily Standard, First dose (after last modification) on Tue07/09/20 at 0915, For 17 doses [facility] Medication administered onsite Amantadine Hydrochloride 10 MG/ML Oral S olution amantadine (SYMMETREL) solution 100 mg amantadine (SYMMETREL) solution 100 mg 07/09/2020 09:15:00 AM ED T 100 mg Per G Tube aborted 100 mg, P er G Tube, 2 Times Daily, First dose (after last modification) on Tue07/09/20 at 0915, For 22 doses [facility] Medication administered onsite ropinirole 1 MG Oral Tablet ropinirole (REQUIP) tablet 1 mg ropinirole (REQUIP) tablet 1 mg 07/09/2020 09:15:00 AM EDT 1 mg Per G Tube ab orted 1 mg, Per G Tube, Three Times Daily Standard, First dose (after last modification) on Tue07/09/20 at 0915, For 51 doses [facility] Medication administered onsite pantoprazole (PROTONIX) 2 mg/mL oral suspension 40 mg 07/09/2020 09:15:00 AM EDT 40 mg Per G Tube aborted 40 mg , Per G Tube, Daily Standard, First dose (after last modification) on Tue07/09/20 at 914, For 17 doses [facility] Medication administered onsite Folic Acid 1 MG Oral Tablet folic acid (FOLVITE) table t 1 mg folic acid (FOLVITE) tablet 1 mg 07/09/2020 09:15:00 AM EDT 1 mg Per G Tube aborted 1 mg, Per G Tube, Daily Sta ndard, First dose (after last modification) on Tue07/09/20 at 0915, For 17 doses [facility] Medication administered onsite Prednisone 5 MG Oral Tablet predniSONE (DELTASONE) tab let 5 mg predniSONE (DELTASONE) tablet 5 mg 07/09/2020 09:15:00 AM EDT 5 mg Per G Tub e aborted 5 mg, Per G Tube, Da maria a Standard, First dose (after last modification) on Tue07/09/20 at 0915, For 17 doses
Take with food.
[facility] Medication administered onsite Metoprolol Tartrate 25 MG Oral Tablet me toprolol tartrate (LOPRESSOR) tablet 25 mg metoprolol tartrate (LOPRESSOR) tablet 25 mg 07/09/2020 09:15:00 AM EDT 25 mg Per G Tube aborted 25 mg, Pe r G Tube, Every 12 hours, First dose (after last modification) on Tue07/09/20 at 0915, For 48 doses
Check vitals. HOLD SBP <100
[facility] Medication administered onsite ezetimibe 10 MG Oral Tablet ezetimibe (ZETIA) tablet 1 0 mg ezetimibe (ZETIA) tablet 10 mg 07/09/2020 09:15:00 AM EDT 10 mg Per G Tube a borted 10 mg, Per G Tube, Daily Standard, First dose (after last modification) on Tue07/09/20 at 0915, For 17 doses [facility] Medication administered onsite 0.4 ML Enoxaparin sodium 100 MG/ML Prefi lled Syringe enoxaparin sodium (LOVENOX) injection 40 mg enoxaparin sodium (LOVENOX) injection 40 mg 07/09/2020 09:00:00 AM EDT 40 mg Subcutaneous aborted 40 mg, Subcutaneous, Daily Standard, First dose (after last modification) on Tue07/09/20 at 0900, For 41 doses [facility] Medication administered onsite sennosides, JAIL 8.6 MG Oral Tablet senna tablet 2 tablet sen na tablet 2 tablet 07/09/2020 08:47:06 AM EDT 2 {tbl} Per G Tube aborted 2 tablet, Per G Tube, Nightly PRN, Constipation, Starting Tue07/09/20 at 0847, For 21 days 19 hours [facility] Medication administered onsite Acetaminophen 325 MG Oral Tablet acetaminophen (TYLENO L) tablet 650 mg acetaminophen (TYLENOL) tablet 650 mg 07/09/2020 08:45:57 AM EDT 650 mg Per G Tube aborted 650 mg, Per G Tube, Every 6 hours PRN, Mild Pain (Pain Scale Score 1-3), Headaches, Fever, Starting Tue07/09/20 at 0845, For 19 days 5 hours
Maximum daily dose of acetaminophen is 3,000 mg from all sources in 24 hours.
[facility] Medication administered onsite heparin sodium, porcine 10 UNT/ML Inject able Solution heparin lock flush 10 UNIT/ML injection 10 Units heparin lock flush 10 UNIT/ML injection 10 Units 07/08/2020 03:44:01 PM EDT 10 U Intracatheter aborted 10 Units, Intracatheter, PRN, Line Care, Starting Tue07/08/20 at 1544, For 22 days 1 hour [facility] Medication administered onsite Prednisone 5 MG Oral Tablet predniSONE 5 MG Oral Table t (DELTASONE) predniSONE 5 MG Oral Tablet (DELTASONE) 01/09/2019 12:00:00 AM EDT Oral aborted Take by mouth [facility] Lidocaine Hydrochloride 40 MG/ML Topical Cream Lidocaine HCl 4 % External Cream (Aspercreme Lidocaine) Lidocaine HCl 4 % External Cream (Aspercreme Lidocaine ) Apply externally aborted Apply topically [facility] Sodium Phosphate, Dibasic 35.5 MG/ML / S odium Phosphate, Monobasic 96.4 MG/ML Enema Fleet Enema 7-19 GM/118ML Rectal Enema Fleet Enema 7-19 GM/118ML Rectal Enema [address] 118 mLs rectally daily as needed for Constipation [facility] Ceftriaxone 1000 MG Injection cefTRIAXon e Sodium 1 GM Injection Solution Reconstituted (ROCEPHIN) cefTRIAXone Sodium 1 GM Injection Soluti on Reconstituted (ROCEPHIN) 1000 mg Intramuscular abort ed Inject 1,000 mg into the muscle daily For 6 days. Started 10/17/20. Last dose 10/20/2020 [facility] Meclizine Hydrochloride 25 MG Oral Table t Meclizine HCl 25 MG Oral Tablet (ANTIVERT) Meclizine HCl 25 MG Oral Tablet (ANTIVERT) 25 mg Or al aborted Take 25 mg by mouth Three times daily as needed [facility] Medication administered onsite Spironolactone 25 MG Oral Tablet Spironolactone 25 MG Oral Tablet (ALDACTONE) Spironolactone 25 MG Oral Tablet (ALDACTONE) 25 mg Oral aborted Take 25 mg by mouth daily [facility] Medication administered onsite Chlorthalidone 25 MG Oral Tablet chlorthalidone (HYGRO TON) 25 MG tablet chlorthalidone (HYGROTON) 25 MG tablet 12.5 mg Oral aborted Take 12.5 mg by mouth daily [facility] Medication administered onsite Loratadine 10 MG Oral Tablet Loratadine 10 MG Oral Tab let (CLARITIN) Loratadine 10 MG Oral Tablet (CLARITIN) 10 mg Oral aborted Take 10 mg by mouth daily [facility] Medication administered onsite Zinc Gluconate 100 MG Oral Tablet Zinc Gluconate 100 M G TABS Zinc Gluconate 100 MG TABS 100 mg Per G Tube aborted 100 mg by Per G Tube route daily [facility] 24 HR Divalproex Sodium 500 MG Extended Release Oral Tablet Divalproex Sodium ER 500 MG Oral Tablet Extended Release 24 Hour (DEPAKOTE) Divalproex Sodium ER 500 MG Oral Tablet Extended Release 24 Hour (DEPAKOTE) 500 mg Oral aborted Take 500 mg by mouth Two Times Daily [facility] Medication administered onsite modafinil 200 MG Oral Tablet modafinil (PROVIGIL) 200 MG tablet modafinil (PROVIGIL) 200 MG tablet 200 mg Per G Tube aborted 200 mg by Per G Tube route daily [facility] pregabalin 200 MG Oral Capsule Pregabalin 200 MG Oral Capsule (Lyrica) Pregabalin 200 MG Oral Capsule (Lyrica) 200 mg Oral aborted Take 200 mg by mouth Two Times Daily [facility] Medication administered onsite Lisinopril 2.5 MG Oral Tablet Lisinopril 2.5 MG Oral T ablet (Zestril) Lisinopril 2.5 MG Oral Tablet (Zestril) 2.5 mg Oral aborted Take 2.5 mg by mouth daily [facility] Medication administered onsite Cholecalciferol 1000 UNT Oral Tablet Vit hickman D3 25 MCG (1000 UT) Oral Tablet (CHOLECALCIFEROL) Vitamin D3 25 MCG (1000 UT) Oral Tablet (CHOLECALCIFEROL) 1000 U Per G Tube aborted 1,000 Units by Per G Tube route daily [facility] Prednisone 5 MG Oral Tablet predniSONE 5 MG Oral Table t (DELTASONE) predniSONE 5 MG Oral Tablet (DELTASONE) 5 mg Oral aborted Take 5 mg by mouth every other day [facility] Medication administered onsite Tab-A-Martín/Beta Carotene Oral Tablet [id number] 1 {tbl } Per G Tube aborted 1 tablet by Per G Tube route virgen ly [facility] Ascorbic Acid 500 MG Oral Tablet Ascorbi c Acid 500 MG Oral Tablet (ASCORBIC ACID) Ascorbic Acid 500 MG Oral Tablet (ASCORBIC ACID) 5 00 mg Per G Tube aborted 500 mg by [facility] Bisacodyl 10 MG Rectal Suppository Bisac odyl 10 MG Rectal Suppository (DULCOLAX) Bisacodyl 10 MG Rectal Suppository (DULCOLAX) [address] 10 mg rectally daily as needed for Constipation [facility] Magnesium Hydroxide 80 MG/ML Oral Suspen maria g Magnesium Hydroxide 400 MG/5ML Oral Suspension (MILK OF MAGNESIA) Magnesium Hydroxide 400 MG/5ML Oral Susp ension (MILK OF MAGNESIA) 30 mL Oral aborted Take 30 mLs by mouth daily as needed for Constipation [facility] ropinirole 0.5 MG Oral Tablet ropinirole (REQUIP) 0.5 MG tablet ropinirole (REQUIP) 0.5 MG tablet 0.5 mg Oral aborted Take 0.5 mg by mouth Two Times Daily [facility] Medication administered onsite Rosuvastatin calcium 40 MG Oral Tablet rosuvastatin (C RESTOR) 40 MG tablet rosuvastatin (CRESTOR) 40 MG tablet 40 mg Oral ab orted Take 40 mg by mouth daily [facility] Medication administered onsite ezetimibe 10 MG Oral Tablet Ezetimibe 10 MG Oral Table t (ZETIA) Ezetimibe 10 MG Oral Tablet (ZETIA) 10 mg Oral aborted Take 10 mg by mouth nightly [facility] Medication administered onsite Folic Acid 1 MG Oral Tablet Folic Acid 1 MG Oral Table t (FOLVITE) Folic Acid 1 MG Oral Tablet (FOLVITE) 1 mg Oral aborted Take 1 mg by mouth daily [facility] Medication administered onsite 24 HR Divalproex Sodium 250 MG Extended Release Oral Tablet Divalproex Sodium ER 250 MG Oral Tablet Extended Release 24 Hour (DEPAKOTE) Divalproex Sodium ER 250 MG Oral Tablet Extended Release 24 Hour (DEPAKOTE) 250 mg Oral aborted Take 250 mg by mouth nightly With 500MG tablet for a nightly dose of 750MG. [facility] Medication administered onsite Hydroxyzine Hydrochloride 25 MG Oral Tab let hydrOXYzine HCl 25 MG Oral Tablet (ATARAX) hydrOXYzine HCl 25 MG Oral Tablet (ATARAX) mg Oral aborted Take 25-50 mg by mouth nightly as needed for Itching [facility] Medication administered onsite Thiamine 100 MG Oral Tablet Thiamine HCl 100 MG Oral T ablet (B-1) Thiamine HCl 100 MG Oral Tablet (B-1) 100 mg Oral aborted Take 100 mg by mouth daily [facility] Medication administered onsite One-Daily Multi Vitamins Oral Tablet [id number] 1 {tbl} O ral aborted Take 1 tablet by mouth daily [facility] Medication administered onsite Methotrexate Sodium (METHOTREXATE HIGH DOSE) 25 MG/ML IJ SOLN [id number] 15 mg Intravenous aborted Inject 1 5 mg into the vein every 7 (seven) days [facility] Medication administered onsite Levetiracetam 250 MG Oral Tablet levETIRAcetam 250 MG Oral Tablet (KEPPRA) levETIRAcetam 250 MG Oral Tablet (KEPPRA) 500 mg Oral aborted Take 500 mg by mouth Two Times Daily [facility] Medication administered onsite carvedilol 6.25 MG Oral Tablet Carvedilol 6.25 MG Oral Tablet (COREG) Carvedilol 6.25 MG Oral Tablet (COREG) 6.25 mg Oral aborted Take 6.25 mg by mouth Two times daily with meals [facility] Medication administered onsite modafinil 200 MG Oral Tablet Modafinil 200 MG Oral Tab let (PROVIGIL) Modafinil 200 MG Oral Tablet (PROVIGIL) 200 mg Oral aborted Take 200 mg by mouth daily [facility] ropinirole 1 MG Oral Tablet rOPINIRole HCl 1 MG Oral T ablet (REQUIP) rOPINIRole HCl 1 MG Oral Tablet (REQUIP) 1 mg Oral aborted Take 1 mg by mouth Two Times Daily [facility] METOPROLOL TARTRATE PO 25 mg Oral aborted Take 25 mg by mouth [facility] Folic Acid 1 MG Oral Tablet Folic Acid 1 MG Oral Table t (FOLVITE) Folic Acid 1 MG Oral Tablet (FOLVITE) 1 mg Oral aborted Take 1 mg by mouth daily [facility] pantoprazole 20 MG Delayed Release Oral Tablet Pantoprazole Sodium 20 MG Oral Tablet Delayed Release (PROTONIX) Pantoprazole Sodium 20 MG Oral Tablet De layed Release (PROTONIX) 20 mg Oral aborted Take 20 mg by mouth daily [facility] oxcarbazepine 600 MG Oral Tablet OXcarbazepine 600 MG Oral Tablet (Trileptal) OXcarbazepine 600 MG Oral Tablet (Trileptal) 600 mg Oral aborted Take 600 mg by mouth Two Times Daily 600MG BID (6AM AND 8PM) 450MG 2PM [facility] Insurance Providers Payer name Policy type / Coverage type Policy ID Covered libertarian ID Covered libertarian's relationship to harding Policy [place] Plan Information [place] Commercial [id number] Self [place] 200/700 [id number] SP [id number] U [id number] Self [id number] BLUE CARD C [id number] Self [id number] [facility] [employer] ([facility]) [id number] Self [facility] Health Maintenance [facility] ([facility]) [id number] Self [id number] [facility] ([facility]) [id number] Self [id number] [facility] Health Maintenance Organization ([facility]) [id number] Self [id number] [facility] Maintenance [facility] ([facility]) [id number] Self [id number] [facility] ([facility]) [id number] Self [id number] [facility] Maintenance Organization ([facility]) [id number] Self [id number] [facility] ([facility]) [id number] Self [id number] [facility] Maintenance Organization ([facility]) [id number] Self [id number] Medicare Part B Medicare Primary [id number] Self [id number] For Life - [place] Medigap Part B [id number] Self [id number] Medicare (Part B) Medicare Primary [id number] Self 2 [id number] Medicare Part B Medicare Primary [id number] Self [id number] For Life - [facility] Part B [id number] Self [id number] Medicare (Part B) Medicare Primary [id number] Self [id number] Medicare Part B Medicare Primary [id number] Self [id number] For Life - [place] Part B [id number] Self [id number] Medicare (Part B) Medicare Primary [id number] [id number] Self [id number] For Life - [place] Part B [id number] Self [id number] Medicare (Part B) Medicare Primary [id number] Self 2 [id number] Medicare Part B Medicare Primary [id number] [id number] Self [id number] Medicare Part B Medicare Primary [id number] [id number] Self [id number] For Life - [place] Part B [id number] Self [id number] Medicare (Part B) Medicare Primary [id number] [id number] Self [id number] MEDICARE A [id number] Self [id number] Medicare Part B Medicare Primary [id number] [id number] Self [id number] Medicare Part B Medicare Primary [id number] Self [id number] FOR LIFE U [id number] Self [id number] FOR LIFE U [id number] Self [id number] FOR LIFE U [id number] Self [id number] U [id number] Self [id number] 500 U [id number] Self [id number] U [id number] Self [id number] 500 U [id number] Self [id number] 500 U [id number] Self [id number] 500 OTHER B [id number] Self [id number] FOR LIFE [id number] SP [id number] MEDICARE C [id number] S [id number] FOR LIFE O [id number] S [id number] PGBA [place] [id number] SP [id number] OPTUM VA CCN [id number] SP [id number] 25 'S ADMINISTRATION [id number] SP [id number] For Life Reg 1 Medigap Part B [id number] Self [id number] Medicare - [facility] Medicare Primary [id number] Self [id number] For Life Medigap Part B [id number] Self [id number] For Life Reg 1 Medigap Part B [id number] Self [id number] Medicare - [facility] Medicare Primary [id number] [id number] Self [id number] For Life Medigap Part B [id number] Self [id number] For Life Medigap Part B [id number] Self [id number] For Life Medigap Part B [id number] Self [id number] For Life Medigap Part B [id number] Self [id number] For Life Reg 1 Medigap Part B [id number] Self 2 [id number] Medicare - [facility] Medicare Primary [id number] Self 2 [id number] For Life Medigap Part B [id number] Self [id number] MEDICARE C [id number] S [id number] A For Life Reg 1 Medigap Part B [id number] Self 2 [id number] Medicare - [place] Medicare Primary [id number] Self 2 [id number] MEDICARE [id number] SP [id number] A For Life [facility] Part B [id number] Self [id number] [employer] [facility] Part B [id number] Self [id number] Medicare Part B Medicare Primary [id number] Self [id number] [facility]/OR [id number] S [id number] [employer] [facility] Part B [id number] Self [id number] Medicare Part B Medicare Primary [id number] Self [id number] [employer] Commercial [id number] Self [id number] [employer] [id number] Self [id number] [employer] Commercial [id number] Self PGBA [facility] [id number] SP [id number] [employer]/ AD O [id number] S [id number] [place] PPO 302/307 [id number] SP [id number] BC/BS [place] Commercial [id number] Self MEDICARE [id number] SP [id number] Problems, Conditions, and Diagnoses Code Display Name Description Problem Type Effective Dates Data Source(s) status epilepticus, SDH, intubated. status epile pticus, SDH, intubated. Diagnosis 06/22/2021 10:45:00 AM [facility] S06.5X9A Traumatic subdural hemorrhag e with loss of consciousness of unspecified duration, initial encounter Traumatic subdural hemorrhage with loss of consciousness of unspecified duration, initial encounter Diagnosis 03/09/2021 05:44:25 AM [facility] increased size of subdural hemorrhage, A MS increased size of subdural hemorrhage, AMS Diagnosis 03/07/2021 04:18:00 PM EDT [facility] Z46.59 Encounter for fitting and ad justment of other gastrointestinal appliance and device Encounter for fitting and adjustment of other gastrointestinal appliance and device Diagnosis 02/06/2021 04:56:37 PM EDT [facility] fol fol Diagnosis 02/06/2021 12:53:[address] [facility] Z87.820 Personal history of traumatic brain inju ry Personal history of traumatic brain injury Diagnosis 12/21/2020 02:53:00 PM [facility] W19.XXXA Unspecified fall, initial encounter Unsp ecified fall, initial encounter Diagnosis 12/21/2020 02:53:00 PM [facility] G40.909 Epilepsy, unspecified, not intractable, without status epilepticus Epilepsy, unspecified, not intractable, without status epilepticus Diagnosis 12/21/2020 02:53:00 PM [facility] acute on chronic subdural hematoma s/p f all acute on chronic subdural hematoma s/p fall Diagnosis 12/21/2020 02:53:00 PM [facility] 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 Diagnosis 10/27/2020 12:05:04 PM [facility] 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 Diagnosis 10/22/2020 05:44:58 PM [facility] Z87.828 Personal history of other (healed) physi yoel injury and trauma Personal history of other (healed) physical injury and trauma Diagnosis 0 10/21/2020 06:45:00 PM [facility] Z20.822 Contact with and (suspected) exposure to covid-19 Contact with and (suspected) exposure to covid-19 Diagnosis 10/21/2020 06:45:00 PM [facility] I11.9 Hypertensive heart disease without heart failure Hypertensive heart disease without heart failure Diagnosis 10/21/2020 06:45:00 PM [facility] I25.10 Atherosclerotic heart diseas e of [place] coronary artery without angina pectoris Atherosclerotic heart disease of [place] coronary artery without angina pectoris Diagnosis 10/21/2020 06:45:00 PM [facility] I51.7 Cardiomegaly Cardiomegaly Diagnosis 10/21/2020 06:45:00 P M [facility] R00.0 Tachycardia, unspecified Tachycardia, unspecified Diag nosis 10/21/2020 06:45:00 PM [facility] S06.5X0A Traumatic subdural hemorrhag e without loss of consciousness, initial encounter Traumatic subdural hemorrhage without lo ss of consciousness, initial encounter Diagnosis 10/21/2020 06:45:00 PM [facility] G91.8 Other hydrocephalus Other hydrocephalus Diagnosis 0 10/21/2020 06:45:00 PM [facility] subdural hematoma, PNA, hydrocephalus wi th 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 Shunt and hypernatremia subdural hematoma, PNA, hydrocephalus with 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 Shunt and hypernatremia Diagnosis 10/21/2020 06:45:00 PM [facility] R48.2 Apraxia Apraxia Diagnosis 08/06/2020 03:44:36 PM [facility] G93.5 Compression of brain Compression of brain Diagnosis 08/06/2020 03:44:33 PM [facility] E87.1 Hypo-osmolality and hyponatremia Hypo-osmolality and hyponatremia Diagnosis 08/06/2020 03:44:25 PM [facility] Z93.1 Gastrostomy status Gastrostomy status Diagnosis 01/2020 03:44:15 PM [facility] Status epilepticus Status epilepticus Diagnosis 0 03:21:00 PM [facility] SDH SDH Diagnosis 08/06/2020 03:21:00 PM [facility] R69 Illness, unspecified Illness, unspecified Diagnosis 07/31/2020 03:01:00 AM [facility] D86.2 Sarcoidosis Sarcoidosis Problem 12/09/2020 12:00:00 AM NEIL OLIVA ([facility], ) Surgeries/Procedures Procedure Description Date Indications Data Source(s) OFFICE OUTPATIENT VISIT 25 MINUTES 07/30/2021 12:00:00 AM EDT PJ ([facility], ) BASIC METABOLIC PANEL CALCIUM TOTAL <td>BASIC METABOLI C PANEL</td><td>Routine</td><td>06/25/2021 2:40 PM EDT</td><td></td><td> </td> 06/25/2021 02:40:00 PM [facility] BLOOD COUNT COMPLETE AUTOMATED <td>CBC</td><td>Routine </td><td>06/25/2021 3:58 AM EDT</td><td></td><td> </td> 06/25/2021 03:58:00 AM [facility] BASIC METABOLIC PANEL CALCIUM TOTAL <td>BASIC METABOLI C PANEL</td><td>Routine</td><td>06/25/2021 3:58 AM EDT</td><td></td><td> </td> 06/25/2021 03:58:00 AM [facility] BASIC METABOLIC PANEL CALCIUM TOTAL <td>BASIC METABOLI C PANEL</td><td>Routine</td><td>06/24/2021 9:51 AM EDT</td><td></td><td> </td> 06/24/2021 09:51:00 AM [facility] BLOOD COUNT COMPLETE AUTOMATED <td>CBC</td><td>Routine </td><td>06/24/2021 5:18 AM EDT</td><td></td><td> </td> 06/24/2021 05:18:00 AM [facility] BLOOD COUNT COMPLETE AUTOMATED <td>CBC</td><td>Routine </td><td>06/23/2021 8:28 AM EDT</td><td></td><td> </td> 06/23/2021 08:28:00 AM [facility] BASIC METABOLIC PANEL CALCIUM TOTAL <td>BASIC METABOLI C PANEL</td><td>Routine</td><td>06/23/2021 8:28 AM EDT</td><td></td><td> </td> 06/23/2021 08:28:00 AM [facility] LEVETIRACETAM LEVEL <td>LEVETIRACETAM LEVEL</td> <td>Routine</td><td>06/22/2021 9:52 PM EDT</td><td></td><td> </td> 06/22/2021 09:52:00 PM [facility] DRUGS OF ABUSE, URINE <td>DRUGS OF ABUSE, URINE</t d><td>STAT</td><td>06/22/2021 7:30 PM EDT</td><td></td><td> </td> 06/22/2021 07:30:00 PM [facility] URNLS DIP STICK/TABLET REAGENT AUTO MICROSCOPY <td>URI NALYSIS WITH MICROSCOPIC</td><td>STAT</td><td>06/22/2021 7:30 PM EDT</td><td></td><td> </td> 06/22/2021 07:30:00 PM [facility] BLOOD COUNT COMPLETE AUTOMATED <td>CBC</td><td>Routine </td><td>06/22/2021 6:59 PM EDT</td><td></td><td> </td> 06/22/2021 06:59:00 PM [facility] THYROID STIMULATING HORMONE TSH <td>TSH</td><td>Routin e</td><td>06/22/2021 6:59 PM EDT</td><td></td><td> </td> 06/22/2021 06:59:00 PM [facility] CREATINE KINASE TOTAL <td>CK</td><td>Routine</td>< td>06/22/2021 6:59 PM EDT</td><td></td><td> </td> 06/22/2021 06:59:00 PM [facility] LIPID PANEL <td>LIPID PANEL</td><td>Rout ine</td><td>06/22/2021 6:59 PM EDT</td><td></td><td> </td> 06/22/2021 06:59:00 PM [facility] RESPIRATORY PATHOGEN PANEL <td>RESPIRATORY PATHOGEN PANEL</td><td>Routine</td><td>06/22/2021 6:42 PM EDT</td><td></td><td> </td> 06/22/2021 06:42:00 PM [facility] COVID-19 PCR <td>COVID-19 PCR</td><td>Rou savi</td><td>06/22/2021 6:42 PM EDT</td><td></td><td> </td> 06/22/2021 06:42:00 PM [facility] EEG ROUTINE STUDY <td>EEG ROUTINE STUDY</td><t d>Routine</td><td>06/22/2021 5:09 PM EDT</td><td></td><td> </td> 06/22/2021 05:09:53 PM [facility] EKG ED PHYSICIAN INTERPRETATION <td>EKG ED PHYSICIAN INTERPRETATION</td><td>Routine</td><td>06/22/2021 12:44 PM EDT</td><td></td><td> </td> 06/22/2021 12:44:02 PM [facility] EKG 12-LEAD - CMAXX REPORT <td>EKG 12-LEAD - CMAXX REPORT</td><td></td><td>06/22/2021 12:38 PM EDT</td><td></td><td></td> 06/22/2021 12:38:39 PM [facility] EKG 12-LEAD - CMAXX REPORT <td>EKG 12-LEAD - CMAXX REPORT</td><td></td><td>06/22/2021 12:38 PM EDT</td><td></td><td></td> 06/22/2021 12:38:39 PM [facility] EKG 12-LEAD <td>EKG 12-LEAD</td><td>Rout ine</td><td>06/22/2021 12:38 PM EDT</td><td></td><td> </td> 06/22/2021 12:38:39 PM [facility] XR ABDOMEN AP SUPINE AND LATERAL VIEW 83732 <td>XR ABD OMEN AP SUPINE AND LATERAL VIEW 53822</td><td>Routine</td><td>06/22/2021 12:27 PM EDT</td><td></td><td> </td> 06/22/2021 12:27:00 PM [facility] RADIOLOGIC EXAMINATION SKULL < 4 VIEWS <td>XR SKULL LI MITED 39517</td><td>Routine</td><td>06/22/2021 12:27 PM EDT</td><td></td><td> </td> 06/22/2021 12:27:00 PM [facility] XR CHEST FRONTAL AND LATERAL 73536 <td>XR CHEST FRONTA L AND LATERAL 17987</td><td>Routine</td><td>06/22/2021 12:27 PM EDT</td><td></td><td> </td> 06/22/2021 12:27:00 PM [facility] CRITICAL CARE ILL/INJURED PATIENT INIT 30-74 MIN <td>P R CRITICAL CARE, E/M 30-74 MINUTES</td><td>Routine</td><td>06/22/2021 12:09 PM EDT</td><td></td><td> </td> 06/22/2021 12:09:[address] [facility] CT CERVICAL SPINE W/O CONTRAST MATERIAL <td>CT CERVICA L SPINE WITHOUT CONTRAST 86978</td><td>CODE</td><td>06/22/2021 11:16 AM EDT</td><td></td><td> </td> 06/22/2021 11:16:31 AM [facility] PARTIAL THROMBOPLASTIN TIME (PTT) <td>PARTIAL THROMBOP LASTIN TIME (PTT)</td><td>STAT</td><td>06/22/2021 11:14 AM EDT</td><td></td><td> </td> 06/22/2021 11:14:00 AM [facility] ETHYL ALCOHOL LEVEL <td>ETHYL ALCOHOL LEVEL</td> <td>CODE</td><td>06/22/2021 11:14 AM EDT</td><td></td><td> </td> 06/22/2021 11:14:00 AM [facility] PROTHROMBIN TIME <td>PROTIME INR</td><td>STAT </td><td>06/22/2021 11:14 AM EDT</td><td></td><td> </td> 06/22/2021 11:14:00 AM [facility] FIBRINOGEN ACTIVITY <td>FIBRINOGEN LEVEL</td><td >STAT</td><td>06/22/2021 11:14 AM EDT</td><td></td><td> </td> 06/22/2021 11:14:00 AM [facility] BLOOD COUNT COMPLETE AUTO&AUTO DIFRNTL WBC COUNT <td>C BC AND DIFFERENTIAL</td><td>Routine</td><td>06/22/2021 11:14 AM EDT</td><td></td><td> </td> 06/22/2021 11:14:00 AM [facility] BLOOD TYPING ABO <td>TYPE AND SCREEN</td><td> STAT</td><td>06/22/2021 11:14 AM EDT</td><td></td><td> </td> 06/22/2021 11:14:00 AM [facility] LIPASE <td>LIPASE LEVEL</td><td>COD E</td><td>06/22/2021 11:14 AM EDT</td><td></td><td> </td> 06/22/2021 11:14:00 AM [facility] COMPREHENSIVE METABOLIC PANEL <td>COMPREHENSIVE METABO LIC PANEL</td><td>CODE</td><td>06/22/2021 11:14 AM EDT</td><td></td><td> </td> 06/22/2021 11:14:00 AM [facility] RADIOLOGIC EXAMINATION PELVIS 1/2 VIEWS <td>XR PELVIS 1-2 VIEWS 05584</td><td>STAT</td><td>06/22/2021 11:06 AM EDT</td><td></td><td> </td> 06/22/2021 11:06:00 AM [facility] XR CHEST FRONTAL ONLY 14150 <td>XR CHEST FRONTAL ONLY 70165</td><td>STAT</td><td>06/22/2021 11:06 AM EDT</td><td></td><td> </td> 06/22/2021 11:06:00 AM [facility] Spirometry 06/11/2021 12:00:00 AM EDT M EDENT ([facility], ) OFFICE OUTPATIENT VISIT 15 MINUTES 06/11/2021 12:00:00 AM EDT [facility] ([facility]) OFFICE OUTPATIENT VISIT 25 MINUTES 06/11/2021 12:00:00 AM EDT [facility] ([facility], ) OFFICE OUTPATIENT VISIT 25 MINUTES 06/02/2021 12:00:00 AM EDT [facility] ([facility]) BLOOD COUNT COMPLETE AUTO&AUTO DIFRNTL WBC COUNT <td>C BC AND DIFFERENTIAL</td><td>Routine</td><td>05/10/2021 1:11 AM EDT</td><td></td><td> </td> 05/10/2021 01:11:00 AM [facility] BASIC METABOLIC PANEL CALCIUM TOTAL <td>BASIC METABOLI C PANEL</td><td>Routine</td><td>05/10/2021 1:11 AM EDT</td><td></td><td> </td> 05/10/2021 01:11:[address] [facility] CT HEAD/BRAIN W/O CONTRAST MATERIAL <td>CT HEAD WITHOU T CONTRAST 06192</td><td>Routine</td><td>05/10/2021 1:04 AM EDT</td><td></td><td> </td> 05/10/2021 01:04:46 AM [facility] GLUCOSE QUANTITATIVE BLOOD XCPT REAGENT STRIP <td>POCT GLUCOSE, DOCKED</td><td>Routine</td><td>05/09/2021 11:32 PM EDT</td><td></td><td> </td> 05/09/2021 11:32:00 PM [facility] CARDIAC REPORT <td>CARDIAC REPORT</td><td>< /td><td>05/09/2021 8:22 PM EDT</td><td></td><td></td> 05/09/2021 08:22:22 PM EDT [facility] CARDIAC REPORT <td>CARDIAC REPORT</td><td>< /td><td>05/09/2021 8:22 PM EDT</td><td></td><td></td> 05/09/2021 08:22:21 PM EDT [facility] GLUCOSE QUANTITATIVE BLOOD XCPT REAGENT STRIP <td>POCT GLUCOSE, DOCKED</td><td>Routine</td><td>05/09/2021 4:30 PM EDT</td><td></td><td> </td> 05/09/2021 04:30:00 PM [facility] GLUCOSE QUANTITATIVE BLOOD XCPT REAGENT STRIP <td>POCT GLUCOSE, DOCKED</td><td>Routine</td><td>05/09/2021 1:49 PM EDT</td><td></td><td> </td> 05/09/2021 01:49:00 PM [facility] GLUCOSE QUANTITATIVE BLOOD XCPT REAGENT STRIP <td>POCT GLUCOSE, DOCKED</td><td>Routine</td><td>05/09/2021 12:47 PM EDT</td><td></td><td> </td> 05/09/2021 12:47:00 PM [facility] GLUCOSE QUANTITATIVE BLOOD XCPT REAGENT STRIP <td>POCT GLUCOSE, DOCKED</td><td>Routine</td><td>05/09/2021 11:37 AM EDT</td><td></td><td> </td> 05/09/2021 11:37:[address] [facility] CT HEAD/BRAIN W/O CONTRAST MATERIAL <td>CT HEAD WITHOU T CONTRAST 16842</td><td>Urgent</td><td>05/09/2021 11:17 AM EDT</td><td></td><td> </td> 05/09/2021 11:17:58 AM [facility] XR ABDOMEN AP SUPINE AND LATERAL VIEW 29664 <td>XR ABD OMEN AP SUPINE AND LATERAL VIEW 20268</td><td>Routine</td><td>05/09/2021 10:52 AM EDT</td><td></td><td> </td> 05/09/2021 10:52:16 AM [facility] RADIOLOGIC EXAMINATION SKULL < 4 VIEWS <td>XR SKULL LI MITED 43010</td><td>Routine</td><td>05/09/2021 10:52 AM EDT</td><td></td><td> </td> 05/09/2021 10:52:16 AM [facility] XR CHEST FRONTAL AND LATERAL 33672 <td>XR CHEST FRONTA L AND LATERAL 18450</td><td>Routine</td><td>05/09/2021 10:52 AM EDT</td><td></td><td> </td> 05/09/2021 10:52:16 AM [facility] RESPIRATORY PATHOGEN PANEL <td>RESPIRATORY PATHOGEN PANEL</td><td>Routine</td><td>05/09/2021 9:41 AM EDT</td><td></td><td> </td> 05/09/2021 09:41:00 AM [facility] COVID-19 PCR <td>COVID-19 PCR</td><td>Rou savi</td><td>05/09/2021 9:41 AM EDT</td><td></td><td> </td> 05/09/2021 09:41:00 AM [facility] THROMBOPLASTIN TIME PARTIAL PLASMA/WHOLE BLOOD <td>PAR TIAL THROMBOPLASTIN TIME (PTT)</td><td>Routine</td><td>05/09/2021 9:41 AM EDT</td><td></td><td> </td> 05/09/2021 09:41:00 AM [facility] PROTHROMBIN TIME <td>PROTIME INR</td><td>Rout ine</td><td>05/09/2021 9:41 AM EDT</td><td></td><td> </td> 05/09/2021 09:41:00 AM [facility] BLOOD COUNT COMPLETE AUTO&AUTO DIFRNTL WBC COUNT <td>C BC AND DIFFERENTIAL</td><td>Routine</td><td>05/09/2021 9:41 AM EDT</td><td></td><td> </td> 05/09/2021 09:41:00 AM [facility] BASIC METABOLIC PANEL CALCIUM TOTAL <td>BASIC METABOLI C PANEL</td><td>STAT</td><td>05/09/2021 9:41 AM EDT</td><td></td><td> </td> 05/09/2021 09:41:00 AM [facility] Chronic Care MGMT 20 Mins Clinical Staff Time Per M [facility] 05/07/2021 12:00:00 AM EDKiya OLIVA (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[employer] [facility]) OFFICE OUTPATIENT VISIT 25 MINUTES 04/28/2021 12:00:00 AM EDT [facility] ([facility], ) BASIC METABOLIC PANEL CALCIUM TOTAL <td>BASIC METABOLI C PANEL</td><td>Timed</td><td>04/11/2021 11:02 AM EDT</td><td></td><td> </td> 04/11/2021 11:02:00 AM [facility] BLOOD COUNT COMPLETE AUTOMATED <td>CBC</td><td>Routine </td><td>04/11/2021 5:03 AM EDT</td><td></td><td> </td> 04/11/2021 05:03:00 AM [facility] BASIC METABOLIC PANEL CALCIUM TOTAL <td>BASIC METABOLI C PANEL</td><td>Timed</td><td>04/10/2021 6:17 PM EDT</td><td></td><td> </td> 04/10/2021 06:17:00 PM [facility] RADIOLOGY REPORT <td>RADIOLOGY REPORT</td><td ></td><td>04/10/2021 9:50 AM EDT</td><td></td><td></td> 04/10/2021 09:50:23 AM EDT [facility] BLOOD COUNT COMPLETE AUTOMATED <td>CBC</td><td>STAT</t d><td>04/10/2021 9:03 AM EDT</td><td></td><td> </td> 04/10/2021 09:03:00 AM [facility] BASIC METABOLIC PANEL CALCIUM TOTAL <td>BASIC METABOLI C PANEL</td><td>STAT</td><td>04/10/2021 9:03 AM EDT</td><td></td><td> </td> 04/10/2021 09:03:[address] [facility] CT HEAD/BRAIN W/O CONTRAST MATERIAL <td>CT HEAD WITHOU T CONTRAST 05396</td><td>Routine</td><td>04/10/2021 2:34 AM EDT</td><td></td><td> </td> 04/10/2021 02:34:[address] [facility] CT HEAD/BRAIN W/O CONTRAST MATERIAL <td>CT HEAD WITHOU T CONTRAST 86728</td><td>STAT</td><td>04/09/2021 10:30 AM EDT</td><td></td><td> </td> 04/09/2021 10:30:00 AM [facility] RESPIRATORY PATHOGEN PANEL <td>RESPIRATORY PATHOGEN PANEL</td><td>Routine</td><td>04/09/2021 6:55 AM EDT</td><td></td><td> </td> 04/09/2021 06:55:00 AM [facility] COVID-19 PCR <td>COVID-19 PCR</td><td>Rou savi</td><td>04/09/2021 6:55 AM EDT</td><td></td><td> </td> 04/09/2021 06:55:00 AM [facility] XR ABDOMEN AP SUPINE AND LATERAL VIEW 94407 <td>XR ABD OMEN AP SUPINE AND LATERAL VIEW 51180</td><td>STAT</td><td>04/09/2021 6:47 AM EDT</td><td></td><td> </td> 04/09/2021 06:47:00 AM [facility] RADIOLOGIC EXAMINATION SKULL < 4 VIEWS <td>XR SKULL LI MITED 57228</td><td>STAT</td><td>04/09/2021 6:47 AM EDT</td><td></td><td> </td> 04/09/2021 06:47:00 AM [facility] XR CHEST FRONTAL AND LATERAL 05469 <td>XR CHEST FRONTA L AND LATERAL 66739</td><td>STAT</td><td>04/09/2021 6:47 AM EDT</td><td></td><td> </td> 04/09/2021 06:47:00 AM [facility] THROMBOPLASTIN TIME PARTIAL PLASMA/WHOLE BLOOD <td>PAR TIAL THROMBOPLASTIN TIME (PTT)</td><td>Routine</td><td>04/09/2021 5:49 AM EDT</td><td></td><td> </td> 04/09/2021 05:49:00 AM [facility] PROTHROMBIN TIME <td>PROTIME INR</td><td>STAT </td><td>04/09/2021 5:49 AM EDT</td><td></td><td> </td> 04/09/2021 05:49:00 AM [facility] BLOOD COUNT COMPLETE AUTO&AUTO DIFRNTL WBC COUNT <td>C BC AND DIFFERENTIAL</td><td>Routine</td><td>04/09/2021 5:49 AM EDT</td><td></td><td> </td> 04/09/2021 05:49:00 AM [facility] BASIC METABOLIC PANEL CALCIUM TOTAL <td>BASIC METABOLI C PANEL</td><td>STAT</td><td>04/09/2021 5:49 AM EDT</td><td></td><td> </td> 04/09/2021 05:49:00 AM [facility] ECG ROUTINE ECG W/LEAST 12 LDS W/I&R 04/08/2021 12:00: 00 AM EDT [facility] ([facility]) OFFICE OUTPATIENT VISIT 25 MINUTES 04/08/2021 12:00:00 AM EDT [facility] ([facility]) BLOOD COUNT COMPLETE AUTOMATED <td>CBC</td><td>Routine </td><td>03/09/2021 4:01 AM EDT</td><td></td><td> </td> 03/09/2021 04:01:00 AM [facility] BASIC METABOLIC PANEL CALCIUM TOTAL <td>BASIC METABOLI C PANEL</td><td>Routine</td><td>03/09/2021 4:01 AM EDT</td><td></td><td> </td> 03/09/2021 04:01:00 AM [facility] RADIOLOGY REPORT <td>RADIOLOGY REPORT</td><td ></td><td>03/08/2021 1:57 PM EDT</td><td></td><td></td> 03/08/2021 01:57:43 PM EDT [facility] CARDIAC REPORT <td>CARDIAC REPORT</td><td>< /td><td>03/08/2021 1:57 PM EDT</td><td></td><td></td> 03/08/2021 01:57:43 PM EDT [facility] BLOOD COUNT COMPLETE AUTOMATED <td>CBC</td><td>Routine </td><td>03/08/2021 12:41 AM EDT</td><td></td><td> </td> 03/08/2021 12:41:00 AM [facility] THYROID STIMULATING HORMONE TSH <td>TSH</td><td>Routin e</td><td>03/08/2021 12:41 AM EDT</td><td></td><td> </td> 03/08/2021 12:41:00 AM [facility] HEMOGLOBIN GLYCOSYLATED A1C <td>HEMOGLOBIN A1C</td><td>Routine</td><td>03/08/2021 12:41 AM EDT</td><td></td><td> </td> 03/08/2021 12:41:00 AM [facility] LIPID PANEL <td>LIPID PANEL</td><td>Rout ine</td><td>03/08/2021 12:41 AM EDT</td><td></td><td> </td> 03/08/2021 12:41:00 AM [facility] COMPREHENSIVE METABOLIC PANEL <td>COMPREHENSIVE METABO LIC PANEL</td><td>Routine</td><td>03/08/2021 12:41 AM EDT</td><td></td><td> </td> 03/08/2021 12:41:00 AM [facility] XR ABDOMEN AP SUPINE AND LATERAL VIEW 59174 <td>XR ABD OMEN AP SUPINE AND LATERAL VIEW 85689</td><td>STAT</td><td>03/07/2021 8:29 PM EDT</td><td></td><td> </td> 03/07/2021 08:29:00 PM [facility] RADIOLOGIC EXAMINATION SKULL < 4 VIEWS <td>XR SKULL LI MITED 01823</td><td>STAT</td><td>03/07/2021 8:29 PM EDT</td><td></td><td> </td> 03/07/2021 08:29:00 PM [facility] XR CHEST FRONTAL AND LATERAL 59850 <td>XR CHEST FRONTA L AND LATERAL 69099</td><td>STAT</td><td>03/07/2021 8:29 PM EDT</td><td></td><td> </td> 03/07/2021 08:29:00 PM [facility] CT CERVICAL SPINE W/O CONTRAST MATERIAL <td>CT CERVICA L SPINE WITHOUT CONTRAST 14819</td><td>STAT</td><td>03/07/2021 7:52 PM EDT</td><td></td><td> </td> 03/07/2021 07:52:01 PM [facility] CT HEAD/BRAIN W/O CONTRAST MATERIAL <td>CT HEAD WITHOU T CONTRAST 50457</td><td>STAT</td><td>03/07/2021 7:52 PM EDT</td><td></td><td> </td> 03/07/2021 07:52:01 PM [facility] ETHYL ALCOHOL LEVEL <td>ETHYL ALCOHOL LEVEL</td> <td>Routine</td><td>03/07/2021 7:50 PM EDT</td><td></td><td> </td> 03/07/2021 07:50:00 PM [facility] HEPATIC FUNCTION PANEL <td>HEPATIC FUNCTION PANEL A</td><td>Routine</td><td>03/07/2021 7:50 PM EDT</td><td></td><td> </td> 03/07/2021 07:50:00 PM [facility] RESPIRATORY PATHOGEN PANEL <td>RESPIRATORY PATHOGEN PANEL</td><td>Routine</td><td>03/07/2021 5:40 PM EDT</td><td></td><td> </td> 03/07/2021 05:40:00 PM [facility] COVID-19 PCR <td>COVID-19 PCR</td><td>Rou savi</td><td>03/07/2021 5:40 PM EDT</td><td></td><td> </td> 03/07/2021 05:40:00 PM [facility] THROMBOPLASTIN TIME PARTIAL PLASMA/WHOLE BLOOD <td>PAR TIAL THROMBOPLASTIN TIME (PTT)</td><td>Routine</td><td>03/07/2021 4:31 PM EDT</td><td></td><td> </td> 03/07/2021 04:31:00 PM [facility] PROTHROMBIN TIME <td>PROTIME INR</td><td>Rout ine</td><td>03/07/2021 4:31 PM EDT</td><td></td><td> </td> 03/07/2021 04:31:00 PM [facility] BLOOD COUNT COMPLETE AUTO&AUTO DIFRNTL WBC COUNT <td>C BC AND DIFFERENTIAL</td><td>Routine</td><td>03/07/2021 4:31 PM EDT</td><td></td><td> </td> 03/07/2021 04:31:00 PM [facility] BLOOD TYPING ABO <td>TYPE AND SCREEN</td><td> Routine</td><td>03/07/2021 4:31 PM EDT</td><td></td><td> </td> 03/07/2021 04:31:00 PM [facility] BASIC METABOLIC PANEL CALCIUM TOTAL <td>BASIC METABOLI C PANEL</td><td>Routine</td><td>03/07/2021 4:31 PM EDT</td><td></td><td> </td> 03/07/2021 04:31:00 PM [facility] EKG ED PHYSICIAN INTERPRETATION <td>EKG ED PHYSICIAN INTERPRETATION</td><td>Routine</td><td>03/07/2021 4:26 PM EDT</td><td></td><td> </td> 03/07/2021 04:26:38 PM [facility] EKG 12 LEAD (UNSOLICITED COMPUTER ORDER) <td>EKG 12 LE AD (UNSOLICITED COMPUTER ORDER)</td><td>Routine</td><td>03/07/2021 4:21 PM EDT</td><td></td><td></td> 03/07/2021 04:21:06 PM [facility] EKG 12-LEAD - CMAXX REPORT <td>EKG 12-LEAD - CMAXX REPORT</td><td></td><td>03/07/2021 4:21 PM EDT</td><td></td><td></td> 03/07/2021 04:21:06 PM [facility] EKG 12-LEAD - CMAXX REPORT <td>EKG 12-LEAD - CMAXX REPORT</td><td></td><td>03/07/2021 4:21 PM EDT</td><td></td><td></td> 03/07/2021 04:21:06 PM [facility] EKG 12-LEAD <td>EKG 12-LEAD</td><td>STAT </td><td>03/07/2021 4:21 PM EDT</td><td></td><td> </td> 03/07/2021 04:21:06 PM T [facility] Chronic Care MGMT 20 Mins Clinical Staff Time Per Calendar M [facility] 02/27/2021 12:00:00 AM EDT [facility] (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[employer] [facility] [employer] [facility]) CT HEAD/BRAIN W/O CONTRAST MATERIAL <td>CT HEAD WITHOU T CONTRAST 48956</td><td>STAT</td><td>02/26/2021 9:50 AM EDT</td><td> Subdural hematoma</td><td></td> 02/26/2021 09:50:49 AM EDT Subdural hematoma [facility] Subdural hematoma INJECTION 1 TENDON SHEATH/LIGAMENT APONEUROSIS 021 12:00:00 AM EDT [facility] ([facility]) INJECTION 1 TENDON SHEATH/LIGAMENT APONEUROSIS 021 12:00:00 AM EDT [facility] ([facility]) OFFICE OUTPATIENT VISIT 25 MINUTES 02/12/2021 12:00:00 AM EDT [facility] ([facility]) TENDON SHEATH INCISION 02/12/2021 12:00:00 AM EDT [facility] ([facility]) OFFICE OUTPATIENT VISIT 15 MINUTES 01/30/2021 12:00:00 AM EDT [facility] ([facility]) OFFICE OUTPATIENT VISIT 25 MINUTES 01/22/2021 12:00:00 AM EDT [facility] ([facility]) TROPONIN QUANTITATIVE <td>POCT ISTAT TROPONIN</td> <td>Routine</td><td>12/22/2020 9:18 AM EDT</td><td></td><td> </td> 12/22/2020 09:18:00 AM [facility] EKG 12 LEAD (UNSOLICITED COMPUTER ORDER) <td>EKG 12 LE AD (UNSOLICITED COMPUTER ORDER)</td><td>Routine</td><td>12/22/2020 9:10 AM EDT</td><td></td><td></td> 12/22/2020 09:10:21 AM [facility] EKG 12-LEAD - CMAXX REPORT <td>EKG 12-LEAD - CMAXX REPORT</td><td></td><td>12/22/2020 9:10 AM EDT</td><td></td><td></td> 12/22/2020 09:10:21 AM [facility] EKG 12-LEAD - CMAXX REPORT <td>EKG 12-LEAD - CMAXX REPORT</td><td></td><td>12/22/2020 9:10 AM EDT</td><td></td><td></td> 12/22/2020 09:10:21 AM [facility] EKG 12-LEAD <td>EKG 12-LEAD</td><td>STAT </td><td>12/22/2020 9:10 AM EDT</td><td></td><td> </td> 12/22/2020 09:10:21 AM [facility] EKG 12 LEAD (UNSOLICITED COMPUTER ORDER) <td>EKG 12 LE AD (UNSOLICITED COMPUTER ORDER)</td><td>Routine</td><td>12/22/2020 9:09 AM EDT</td><td></td><td></td> 12/22/2020 09:09:10 AM [facility] EKG 12-LEAD - CMAXX REPORT <td>EKG 12-LEAD - CMAXX REPORT</td><td></td><td>12/22/2020 9:09 AM EDT</td><td></td><td></td> 12/22/2020 09:09:[address] [facility] CT HEAD/BRAIN W/O CONTRAST MATERIAL <td>CT HEAD WITHOU T CONTRAST 16810</td><td>STAT</td><td>12/21/2020 5:57 PM EDT</td><td></td><td> </td> 12/21/2020 05:57:12 PM [facility] EKG ED PHYSICIAN INTERPRETATION <td>EKG ED PHYSICIAN INTERPRETATION</td><td>Routine</td><td>12/21/2020 5:55 PM EDT</td><td></td><td> </td> 12/21/2020 05:55:39 PM [facility] EKG 12-LEAD - CMAXX REPORT <td>EKG 12-LEAD - CMAXX REPORT</td><td></td><td>12/21/2020 4:02 PM EDT</td><td></td><td></td> 12/21/2020 04:02:29 PM [facility] EKG 12-LEAD - CMAXX REPORT <td>EKG 12-LEAD - CMAXX REPORT</td><td></td><td>12/21/2020 4:02 PM EDT</td><td></td><td></td> 12/21/2020 04:02:29 PM [facility] EKG 12-LEAD <td>EKG 12-LEAD</td><td>STAT </td><td>12/21/2020 4:02 PM EDT</td><td></td><td> </td> 12/21/2020 04:02:29 PM [facility] EKG 12-LEAD - CMAXX REPORT <td>EKG 12-LEAD - CMAXX REPORT</td><td></td><td>12/21/2020 4:02 PM EDT</td><td></td><td></td> 12/21/2020 04:02:00 PM [facility] THROMBOPLASTIN TIME PARTIAL PLASMA/WHOLE BLOOD <td>PAR TIAL THROMBOPLASTIN TIME (PTT)</td><td>Routine</td><td>12/21/2020 3:34 PM EDT</td><td></td><td> </td> 12/21/2020 03:34:00 PM [facility] PROTHROMBIN TIME <td>PROTIME INR</td><td>Rout ine</td><td>12/21/2020 3:34 PM EDT</td><td></td><td> </td> 12/21/2020 03:34:00 PM [facility] BLOOD COUNT COMPLETE AUTO&AUTO DIFRNTL WBC COUNT <td>C BC AND DIFFERENTIAL</td><td>Routine</td><td>12/21/2020 3:34 PM EDT</td><td></td><td> </td> 12/21/2020 03:34:00 PM [facility] BASIC METABOLIC PANEL CALCIUM TOTAL <td>BASIC METABOLI C PANEL</td><td>STAT</td><td>12/21/2020 3:34 PM EDT</td><td></td><td> </td> 12/21/2020 03:34:00 PM [facility] INJECTION 1 TENDON SHEATH/LIGAMENT APONEUROSIS 12:00:00 AM EST [facility] ([facility]) INJECTION 1 TENDON SHEATH/LIGAMENT APONEUROSIS 12:00:00 AM EST [facility] ([facility]) OFFICE OUTPATIENT VISIT 15 MINUTES 12/11/2020 12:00:00 AM EST [facility] ([facility]) Chronic Care Management Services Ea Addl 20 Min 2020 12:00:00 AM EST [facility] ([facility]) Chronic Care MGMT 20 Mins Clinical Staff Time Per M [facility] 10/29/2020 12:00:00 AM EST [facility] (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[facility]) BLOOD COUNT COMPLETE AUTOMATED <td>CBC</td><td>STAT</t d><td>09/04/2020 2:54 PM EST</td><td></td><td> </td> 09/04/2020 02:54:00 PM [facility] MAGNESIUM <td>MAGNESIUM LEVEL</td><td> STAT</td><td>09/04/2020 2:54 PM EST</td><td></td><td> </td> 09/04/2020 02:54:00 PM [facility] AMMONIA <td>AMMONIA LEVEL</td><td>ST AT</td><td>09/04/2020 2:54 PM EST</td><td></td><td> </td> 09/04/2020 02:54:00 PM [facility] BASIC METABOLIC PANEL CALCIUM TOTAL <td>BASIC METABOLI C PANEL</td><td>STAT</td><td>09/04/2020 2:54 PM EST</td><td></td><td> </td> 09/04/2020 02:54:00 PM [facility] COVID-19 PCR <td>COVID-19 PCR</td><td>Rou savi</td><td>09/04/2020 12:06 PM EST</td><td></td><td> </td> 09/04/2020 12:06:00 PM [facility] BLOOD COUNT COMPLETE AUTOMATED <td>CBC</td><td>Timed</ td><td>09/04/2020 6:09 AM EST</td><td></td><td> </td> 09/04/2020 06:09:00 AM [facility] BASIC METABOLIC PANEL CALCIUM TOTAL <td>BASIC METABOLI C PANEL</td><td>Timed</td><td>09/04/2020 6:09 AM EST</td><td></td><td> </td> 09/04/2020 06:09:00 AM [facility] BLOOD COUNT COMPLETE AUTOMATED <td>CBC AND DIFFERENTIAL</td><td>Routine</td><td>08/29/2020 4:13 AM EST</td><td></td><td> </td> 08/29/2020 04:13:00 AM [facility] MAGNESIUM <td>MAGNESIUM LEVEL</td><td> Routine</td><td>08/29/2020 4:13 AM EST</td><td></td><td> </td> 08/29/2020 04:13:00 AM [facility] BASIC METABOLIC PANEL CALCIUM TOTAL <td>BASIC METABOLI C PANEL</td><td>Routine</td><td>08/29/2020 4:13 AM EST</td><td></td><td> </td> 08/29/2020 04:13:00 AM [facility] BLOOD COUNT COMPLETE AUTO&AUTO DIFRNTL WBC COUNT <td>C BC AND DIFFERENTIAL</td><td>Timed</td><td>08/25/2020 5:27 AM EST</td><td></td><td> </td> 08/25/2020 05:27:00 AM [facility] MAGNESIUM <td>MAGNESIUM LEVEL</td><td> Timed</td><td>08/25/2020 5:27 AM EST</td><td></td><td> </td> 08/25/2020 05:27:00 AM [facility] BASIC METABOLIC PANEL CALCIUM TOTAL <td>BASIC METABOLI C PANEL</td><td>Timed</td><td>08/25/2020 5:27 AM EST</td><td></td><td> </td> 08/25/2020 05:27:00 AM [facility] OXCARBAZEPINE LEVEL <td>OXCARBAZEPINE LEVEL</td> <td>Routine</td><td>08/24/2020 5:00 AM EST</td><td></td><td> </td> 08/24/2020 05:00:00 AM [facility] AMMONIA <td>AMMONIA LEVEL</td><td>Ro utine</td><td>08/24/2020 5:00 AM EST</td><td></td><td> </td> 08/24/2020 05:00:00 AM [facility] OXCARBAZEPINE LEVEL <td>OXCARBAZEPINE LEVEL</td> <td>Routine</td><td>08/23/2020 6:03 AM EST</td><td></td><td> </td> 08/23/2020 06:03:00 AM [facility] AMMONIA <td>AMMONIA LEVEL</td><td>Ro utine</td><td>08/23/2020 6:03 AM EST</td><td></td><td> </td> 08/23/2020 06:03:00 AM [facility] EKG 12-LEAD - CMAXX REPORT <td>EKG 12-LEAD - CMAXX REPORT</td><td></td><td>08/22/2020 9:22 AM EST</td><td></td><td></td> 08/22/2020 09:22:23 AM [facility] EKG 12-LEAD - CMAXX REPORT <td>EKG 12-LEAD - CMAXX REPORT</td><td></td><td>08/22/2020 9:22 AM EST</td><td></td><td></td> 08/22/2020 09:22:23 AM [facility] EKG 12-LEAD <td>EKG 12-LEAD</td><td>Rout ine</td><td>08/22/2020 9:22 AM EST</td><td></td><td> </td> 08/22/2020 09:22:23 AM [facility] EKG 12-LEAD - CMAXX REPORT <td>EKG 12-LEAD - CMAXX REPORT</td><td></td><td>08/22/2020 9:22 AM EST</td><td></td><td></td> 08/22/2020 09:22:03 AM [facility] EKG 12-LEAD - CMAXX REPORT <td>EKG 12-LEAD - CMAXX REPORT</td><td></td><td>08/22/2020 9:22 AM EST</td><td></td><td></td> 08/22/2020 09:22:03 AM [facility] EKG 12-LEAD <td>EKG 12-LEAD</td><td>Rout ine</td><td>08/22/2020 9:22 AM EST</td><td></td><td> </td> 08/22/2020 09:22:03 AM [facility] OXCARBAZEPINE LEVEL <td>OXCARBAZEPINE LEVEL</td> <td>Routine</td><td>08/22/2020 5:29 AM EST</td><td></td><td> </td> 08/22/2020 05:29:00 AM [facility] BASIC METABOLIC PANEL CALCIUM TOTAL <td>BASIC METABOLI C PANEL</td><td>Routine</td><td>08/22/2020 5:29 AM EST</td><td></td><td> </td> 08/22/2020 05:29:[address] [facility] CT HEAD/BRAIN W/O CONTRAST MATERIAL <td>CT HEAD WITHOU T CONTRAST [id number]</td><td>Routine</td><td>08/21/2020 5:48 PM EST</td><td></td><td> </td> 08/21/2020 05:48:00 PM [facility] OXCARBAZEPINE LEVEL <td>OXCARBAZEPINE LEVEL</td> <td>Routine</td><td>08/21/2020 6:51 AM EST</td><td></td><td> </td> 08/21/2020 06:51:00 AM [facility] LEVETIRACETAM LEVEL <td>LEVETIRACETAM LEVEL</td> <td>Routine</td><td>08/21/2020 6:45 AM EST</td><td></td><td> </td> 08/21/2020 06:45:00 AM [facility] BLOOD COUNT COMPLETE AUTO&AUTO DIFRNTL WBC COUNT <td>C BC AND DIFFERENTIAL</td><td>Timed</td><td>08/21/2020 6:45 AM EST</td><td></td><td> </td> 08/21/2020 06:45:00 AM [facility] MAGNESIUM <td>MAGNESIUM LEVEL</td><td> Timed</td><td>08/21/2020 6:45 AM EST</td><td></td><td> </td> 08/21/2020 06:45:00 AM [facility] DRUG SCREEN QUALITATIVE DIPROPYLACETIC ACID <td>VALPRO IC ACID LEVEL, TOTAL</td><td>Routine</td><td>08/21/2020 6:45 AM EST</td><td></td><td> </td> 08/21/2020 06:45:00 AM [facility] BASIC METABOLIC PANEL CALCIUM TOTAL <td>BASIC METABOLI C PANEL</td><td>Routine</td><td>08/21/2020 6:45 AM EST</td><td></td><td> </td> 08/21/2020 06:45:00 AM [facility] EEG ROUTINE STUDY <td>EEG ROUTINE STUDY</td><t d>Routine</td><td>08/20/2020 11:31 AM EST</td><td></td><td> </td> 08/20/2020 11:31:25 AM [facility] URNLS DIP STICK/TABLET REAGENT AUTO MICROSCOPY <td>URI NALYSIS WITH REFLEX URINE CULTURE</td><td>Routine</td><td>08/20/2020 5:55 AM EST</td><td></td><td> </td> 08/20/2020 05:55:00 AM [facility] XR ABDOMEN AP SUPINE AND LATERAL VIEW 64220 <td>XR ABD OMEN AP SUPINE AND LATERAL VIEW 58250</td><td>Routine</td><td>08/19/2020 11:00 PM EST</td><td></td><td> </td> 08/19/2020 11:00:11 PM [facility] RADIOLOGIC EXAMINATION SKULL < 4 VIEWS <td>XR SKULL LI MITED 80855</td><td>Routine</td><td>08/19/2020 11:00 PM EST</td><td></td><td> </td> 08/19/2020 11:00:11 PM [facility] XR CHEST FRONTAL AND LATERAL 94524 <td>XR CHEST FRONTA L AND LATERAL 23746</td><td>Routine</td><td>08/19/2020 11:00 PM EST</td><td></td><td> </td> 08/19/2020 11:00:11 PM [facility] AMMONIA <td>AMMONIA LEVEL</td><td>Ro utine</td><td>08/19/2020 8:20 PM EST</td><td></td><td> </td> 08/19/2020 08:20:00 PM [facility] EKG 12-LEAD - CMAXX REPORT <td>EKG 12-LEAD - CMAXX REPORT</td><td></td><td>08/19/2020 7:34 PM EST</td><td></td><td></td> 08/19/2020 07:34:28 PM [facility] EKG 12-LEAD - CMAXX REPORT <td>EKG 12-LEAD - CMAXX REPORT</td><td></td><td>08/19/2020 7:34 PM EST</td><td></td><td></td> 08/19/2020 07:34:28 PM [facility] EKG 12-LEAD <td>EKG 12-LEAD</td><td>Rout ine</td><td>08/19/2020 7:34 PM EST</td><td></td><td></td> 08/19/2020 07:34:28 PM EST [facility] EKG 12-LEAD <td>EKG 12-LEAD</td><td>Rout ine</td><td>08/19/2020 7:34 PM EST</td><td></td><td> </td> 08/19/2020 07:34:[address] [facility] [address] HEAD/BRAIN W/O CONTRAST MATERIAL <td>CT HEAD WITHOU T CONTRAST 64361</td><td>STAT</td><td>08/19/2020 7:24 PM EST</td><td></td><td> </td> 08/19/2020 07:24:12 PM [facility] BLOOD COUNT COMPLETE AUTOMATED <td>CBC</td><td>STAT</t d><td>08/19/2020 6:17 PM EST</td><td></td><td> </td> 08/19/2020 06:17:00 PM [facility] DRUG SCREEN QUALITATIVE DIPROPYLACETIC ACID <td>VALPRO IC ACID LEVEL, TOTAL</td><td>STAT</td><td>08/19/2020 6:17 PM EST</td><td></td><td> </td> 08/19/2020 06:17:00 PM [facility] COMPREHENSIVE METABOLIC PANEL <td>COMPREHENSIVE METABO LIC PANEL</td><td>STAT</td><td>08/19/2020 6:17 PM EST</td><td></td><td> </td> 08/19/2020 06:17:00 PM [facility] GLUCOSE QUANTITATIVE BLOOD XCPT REAGENT STRIP <td>POCT GLUCOSE, DOCKED</td><td>Routine</td><td>08/19/2020 6:09 PM EST</td><td></td><td> </td> 08/19/2020 06:09:00 PM [facility] BLOOD COUNT COMPLETE AUTO&AUTO DIFRNTL WBC COUNT <td>C BC AND DIFFERENTIAL</td><td>Timed</td><td>08/18/2020 3:15 AM EST</td><td></td><td> </td> 08/18/2020 03:15:00 AM [facility] MAGNESIUM <td>MAGNESIUM LEVEL</td><td> Timed</td><td>08/18/2020 3:15 AM EST</td><td></td><td> </td> 08/18/2020 03:15:00 AM [facility] BASIC METABOLIC PANEL CALCIUM TOTAL <td>BASIC METABOLI C PANEL</td><td>Timed</td><td>08/18/2020 3:15 AM EST</td><td></td><td> </td> 08/18/2020 03:15:00 AM [facility] BLOOD COUNT COMPLETE AUTO&AUTO DIFRNTL WBC COUNT <td>C BC AND DIFFERENTIAL</td><td>Timed</td><td>08/14/2020 3:42 AM EST</td><td></td><td> </td> 08/14/2020 03:42:00 AM [facility] MAGNESIUM <td>MAGNESIUM LEVEL</td><td> Timed</td><td>08/14/2020 3:42 AM EST</td><td></td><td> </td> 08/14/2020 03:42:00 AM [facility] AMMONIA <td>AMMONIA LEVEL</td><td>Ro utine</td><td>08/14/2020 3:42 AM EST</td><td></td><td> </td> 08/14/2020 03:42:00 AM [facility] BASIC METABOLIC PANEL CALCIUM TOTAL <td>BASIC METABOLI C PANEL</td><td>Timed</td><td>08/14/2020 3:42 AM EST</td><td></td><td> </td> 08/14/2020 03:42:00 AM [facility] SODIUM URINE <td>SODIUM, URINE, RANDOM</t d><td>Routine</td><td>08/13/2020 7:56 PM EST</td><td></td><td> </td> 08/13/2020 07:56:00 PM [facility] OSMOLALITY URINE <td>OSMOLALITY, URINE</td><t d>Routine</td><td>08/13/2020 7:56 PM EST</td><td></td><td> </td> 08/13/2020 07:56:00 PM [facility] CREATININE OTHER SOURCE <td>CREATININE, URINE, RANDOM</td><td>Routine</td><td>08/13/2020 7:56 PM EST</td><td></td><td> </td> 08/13/2020 07:56:00 PM [facility] EEG ROUTINE STUDY <td>EEG ROUTINE STUDY</td><t d>Routine</td><td>08/12/2020 3:58 PM EST</td><td></td><td> </td> 08/12/2020 03:58:08 PM [facility] THYROID STIMULATING HORMONE TSH <td>TSH</td><td>Routin e</td><td>08/12/2020 6:46 AM EST</td><td></td><td> </td> 08/12/2020 06:46:00 AM [facility] THYROXINE FREE <td>T4, FREE</td><td>Routine </td><td>08/12/2020 6:46 AM EST</td><td></td><td> </td> 08/12/2020 06:46:00 AM [facility] BASIC METABOLIC PANEL CALCIUM TOTAL <td>BASIC METABOLI C PANEL</td><td>Routine</td><td>08/12/2020 6:46 AM EST</td><td></td><td> </td> 08/12/2020 06:46:00 AM [facility] URNLS DIP STICK/TABLET REAGENT AUTO MICROSCOPY <td>URI NALYSIS WITH REFLEX URINE CULTURE</td><td>Routine</td><td>08/11/2020 6:30 PM EST</td><td></td><td> </td> 08/11/2020 06:30:00 PM [facility] VALPROIC ACID LEVEL, FREE (SEND OUT) <td>VALPROIC ACID LEVEL, FREE (SEND OUT)</td><td>Routine</td><td>08/11/2020 6:30 PM EST</td><td></td><td> </td> 08/11/2020 06:30:00 PM [facility] DRUG SCREEN QUALITATIVE DIPROPYLACETIC ACID <td>VALPRO IC ACID LEVEL, TOTAL</td><td>Routine</td><td>08/11/2020 6:30 PM EST</td><td></td><td> </td> 08/11/2020 06:30:00 PM [facility] BLOOD COUNT COMPLETE AUTO&AUTO DIFRNTL WBC COUNT <td>C BC AND DIFFERENTIAL</td><td>Timed</td><td>08/11/2020 6:07 AM EST</td><td></td><td> </td> 08/11/2020 06:07:00 AM [facility] MAGNESIUM <td>MAGNESIUM LEVEL</td><td> Timed</td><td>08/11/2020 6:07 AM EST</td><td></td><td> </td> 08/11/2020 06:07:00 AM [facility] BASIC METABOLIC PANEL CALCIUM TOTAL <td>BASIC METABOLI C PANEL</td><td>Routine</td><td>08/11/2020 6:07 AM EST</td><td></td><td> </td> 08/11/2020 06:07:00 AM [facility] BLOOD COUNT COMPLETE AUTO&AUTO DIFRNTL WBC COUNT <td>C BC AND DIFFERENTIAL</td><td>Timed</td><td>08/07/2020 6:07 AM EST</td><td></td><td> </td> 08/07/2020 06:07:00 AM [facility] PHOSPHORUS INORGANIC <td>PHOSPHORUS LEVEL</td><td >Timed</td><td>08/07/2020 6:07 AM EST</td><td></td><td> </td> 08/07/2020 06:07:00 AM [facility] MAGNESIUM <td>MAGNESIUM LEVEL</td><td> Timed</td><td>08/07/2020 6:07 AM EST</td><td></td><td> </td> 08/07/2020 06:07:00 AM [facility] COMPREHENSIVE METABOLIC PANEL <td>COMPREHENSIVE METABO LIC PANEL</td><td>Routine</td><td>08/07/2020 6:07 AM EST</td><td></td><td> </td> 08/07/2020 06:07:00 AM [facility] BLOOD COUNT COMPLETE AUTOMATED <td>CBC</td><td>Routine </td><td>08/06/2020 5:49 AM EST</td><td></td><td> </td> 08/06/2020 05:49:00 AM [facility] BASIC METABOLIC PANEL CALCIUM TOTAL <td>BASIC METABOLI C PANEL</td><td>Routine</td><td>08/06/2020 5:49 AM EST</td><td></td><td> </td> 08/06/2020 05:49:00 AM [facility] BLOOD COUNT COMPLETE AUTOMATED <td>CBC</td><td>Routine </td><td>08/05/2020 5:05 AM EST</td><td></td><td> </td> 08/05/2020 05:05:00 AM [facility] BASIC METABOLIC PANEL CALCIUM TOTAL <td>BASIC METABOLI C PANEL</td><td>Routine</td><td>08/05/2020 5:05 AM EST</td><td></td><td> </td> 08/05/2020 05:05:[address] [facility] [address] HEAD/BRAIN W/O CONTRAST MATERIAL <td>CT HEAD WITHOU T CONTRAST 94978</td><td>Routine</td><td>08/04/2020 9:10 PM EST</td><td></td><td> </td> 08/04/2020 09:10:06 PM [facility] XR ABDOMEN AP SUPINE AND LATERAL VIEW 82904 <td>XR ABD OMEN AP SUPINE AND LATERAL VIEW 56154</td><td>Routine</td><td>08/04/2020 6:44 PM EST</td><td></td><td> </td> 08/04/2020 06:44:15 PM [facility] RADIOLOGIC EXAMINATION SKULL < 4 VIEWS <td>XR SKULL LI MITED 39225</td><td>Routine</td><td>08/04/2020 6:44 PM EST</td><td> Diagnosis unknown</td><td> </td> 08/04/2020 06:44:15 PM EST Diagnosis unknown [facility] Diagnosis unknown XR CHEST FRONTAL AND LATERAL [id number] <td>XR CHEST FRONTA L AND LATERAL 52022</td><td>Routine</td><td>08/04/2020 6:44 PM EST</td><td></td><td> </td> 08/04/2020 06:44:15 PM [facility] URNLS DIP STICK/TABLET REAGENT AUTO MICROSCOPY <td>URI NALYSIS WITH REFLEX URINE CULTURE</td><td>Routine</td><td>08/04/2020 3:45 PM EST</td><td></td><td> </td> 08/04/2020 03:45:00 PM [facility] SHUNT VENTRICULAR PERITONEAL <td>SHUNT VENTRICULAR PERITONEAL</td><td></td><td>08/04/2020 10:28 AM EST</td><td> post-traumatic hydrocephalus</td><td></td> 08/04/2020 10:28:00 AM EST - 08/04/2020 12:58:00 PM [facility] RYAN VIDEO <td>RYAN VIDEO</td><td>Ro utine</td><td>08/04/2020 9:12 AM EST</td><td></td><td></td> 08/04/2020 09:12:08 AM EST [facility] BLOOD COUNT COMPLETE AUTOMATED <td>CBC</td><td>Routine </td><td>08/04/2020 5:16 AM EST</td><td></td><td> </td> 08/04/2020 05:16:00 AM [facility] BASIC METABOLIC PANEL CALCIUM TOTAL <td>BASIC METABOLI C PANEL</td><td>Routine</td><td>08/04/2020 5:16 AM EST</td><td></td><td> </td> 08/04/2020 05:16:[address] [facility] [address] HEAD/BRAIN W/O CONTRAST MATERIAL <td>CT HEAD WITHOU T CONTRAST 28594</td><td>Routine</td><td>08/04/2020 2:42 AM EST</td><td></td><td> </td> 08/04/2020 02:42:12 AM [facility] BLOOD TYPING ABO <td>TYPE AND SCREEN</td><td> Routine</td><td>08/03/2020 10:56 PM EST</td><td></td><td> </td> 08/03/2020 10:56:00 PM [facility] DRUG SCREEN QUALITATIVE DIPROPYLACETIC ACID <td>VALPRO IC ACID LEVEL, TOTAL</td><td>Routine</td><td>08/03/2020 10:56 PM EST</td><td></td><td> </td> 08/03/2020 10:56:00 PM [facility] AMMONIA <td>AMMONIA LEVEL</td><td>Ro utine</td><td>08/03/2020 2:11 PM EST</td><td></td><td> </td> 08/03/2020 02:11:00 PM [facility] DRUG SCREEN QUALITATIVE DIPROPYLACETIC ACID <td>VALPRO IC ACID LEVEL, TOTAL</td><td>Routine</td><td>08/03/2020 2:11 PM EST</td><td></td><td> </td> 08/03/2020 02:11:[address] [facility] [address] HEAD/BRAIN W/O CONTRAST MATERIAL <td>CT HEAD WITHOU T CONTRAST 76613</td><td>STAT</td><td>08/03/2020 12:08 PM EST</td><td></td><td> </td> 08/03/2020 12:08:56 PM [facility] BLOOD COUNT COMPLETE AUTOMATED <td>CBC</td><td>Routine </td><td>08/03/2020 5:29 AM EST</td><td></td><td> </td> 08/03/2020 05:29:00 AM [facility] BASIC METABOLIC PANEL CALCIUM TOTAL <td>BASIC METABOLI C PANEL</td><td>Routine</td><td>08/03/2020 5:29 AM EST</td><td></td><td> </td> 08/03/2020 05:29:00 AM [facility] THROMBOPLASTIN TIME PARTIAL PLASMA/WHOLE BLOOD <td>PAR TIAL THROMBOPLASTIN TIME (PTT)</td><td>Routine</td><td>08/02/2020 4:30 AM EDT</td><td></td><td> </td> 08/02/2020 04:30:00 AM [facility] PROTHROMBIN TIME <td>PROTIME INR</td><td>Rout ine</td><td>08/02/2020 4:30 AM EDT</td><td></td><td> </td> 08/02/2020 04:30:00 AM [facility] BLOOD COUNT COMPLETE AUTOMATED <td>CBC</td><td>Routine </td><td>08/02/2020 4:30 AM EDT</td><td></td><td> </td> 08/02/2020 04:30:00 AM [facility] BASIC METABOLIC PANEL CALCIUM TOTAL <td>BASIC METABOLI C PANEL</td><td>Routine</td><td>08/02/2020 4:30 AM EDT</td><td></td><td> </td> 08/02/2020 04:30:00 AM [facility] AMMONIA <td>AMMONIA LEVEL</td><td>Ro utine</td><td>08/01/2020 10:20 AM EDT</td><td></td><td> </td> 08/01/2020 10:20:00 AM [facility] DRUG SCREEN QUALITATIVE DIPROPYLACETIC ACID <td>VALPRO IC ACID LEVEL, TOTAL</td><td>STAT</td><td>08/01/2020 10:20 AM EDT</td><td></td><td> </td> 08/01/2020 10:20:00 AM [facility] BLOOD COUNT COMPLETE AUTOMATED <td>CBC</td><td>Routine </td><td>08/01/2020 6:43 AM EDT</td><td></td><td> </td> 08/01/2020 06:43:00 AM [facility] LIPID PANEL <td>LIPID PANEL</td><td>Rout ine</td><td>08/01/2020 6:43 AM EDT</td><td></td><td> </td> 08/01/2020 06:43:00 AM [facility] BASIC METABOLIC PANEL CALCIUM TOTAL <td>BASIC METABOLI C PANEL</td><td>Routine</td><td>08/01/2020 6:43 AM EDT</td><td></td><td> </td> 08/01/2020 06:43:00 AM [facility] EEG VIDEO MONITORING <td>EEG VIDEO MONITORING</td ><td>Routine</td><td>07/31/2020 10:56 PM EDT</td><td></td><td> </td> 07/31/2020 10:56:55 PM [facility] URNLS DIP STICK/TABLET REAGENT AUTO MICROSCOPY <td>URI NALYSIS WITH REFLEX URINE CULTURE</td><td>Routine</td><td>07/31/2020 2:13 PM EDT</td><td></td><td> </td> 07/31/2020 02:13:00 PM [facility] XR CHEST FRONTAL ONLY [id number] <td>XR CHEST FRONTAL ONLY 59039</td><td>Routine</td><td>07/31/2020 12:00 PM EDT</td><td></td><td> </td> 07/31/2020 12:00:00 PM [facility] BLOOD COUNT COMPLETE AUTOMATED <td>CBC</td><td>Routine </td><td>07/31/2020 5:06 AM EDT</td><td></td><td> </td> 07/31/2020 05:06:00 AM [facility] THYROID STIMULATING HORMONE TSH <td>TSH</td><td>Routin e</td><td>07/31/2020 5:06 AM EDT</td><td></td><td> </td> 07/31/2020 05:06:00 AM [facility] HEMOGLOBIN GLYCOSYLATED A1C <td>HEMOGLOBIN A1C</td><td>Routine</td><td>07/31/2020 5:06 AM EDT</td><td></td><td> </td> 07/31/2020 05:06:00 AM [facility] LIPID PANEL <td>LIPID PANEL</td><td>Rout ine</td><td>07/31/2020 5:06 AM EDT</td><td></td><td> </td> 07/31/2020 05:06:00 AM [facility] COMPREHENSIVE METABOLIC PANEL <td>COMPREHENSIVE METABO LIC PANEL</td><td>Routine</td><td>07/31/2020 5:06 AM EDT</td><td></td><td> </td> 07/31/2020 05:06:00 AM [facility] AMMONIA <td>AMMONIA LEVEL</td><td>Ro utine</td><td>07/30/2020 11:48 PM EDT</td><td></td><td> </td> 07/30/2020 11:48:00 PM [facility] DRUG SCREEN QUALITATIVE DIPROPYLACETIC ACID <td>VALPRO IC ACID LEVEL, TOTAL</td><td>Routine</td><td>07/30/2020 11:48 PM EDT</td><td></td><td> </td> 07/30/2020 11:48:00 PM [facility] BASIC METABOLIC PANEL CALCIUM TOTAL <td>BASIC METABOLI C PANEL</td><td>Routine</td><td>07/30/2020 11:48 PM EDT</td><td></td><td> </td> 07/30/2020 11:48:00 PM [facility] GLUCOSE QUANTITATIVE BLOOD XCPT REAGENT STRIP <td>POCT GLUCOSE, DOCKED</td><td>Routine</td><td>07/30/2020 11:40 PM EDT</td><td></td><td> </td> 07/30/2020 11:40:00 PM [facility] SWALLOWING FUNCJ W/CINERADIOGRAPY/VIDRADIOG <td>FLUORO RAD EXAM SWALLOWING FUNCTION CINE WITH SPEECH PATH (FORMERLY MODIFIED BARIUM SWALLOW) [id number]</td><td>Routine</td><td>07/28/2020 2:51 PM EDT</td><td></td><td> </td> 07/28/2020 02:51:52 PM [facility] BLOOD COUNT COMPLETE AUTO&AUTO DIFRNTL WBC COUNT <td>C BC AND DIFFERENTIAL</td><td>Timed</td><td>07/28/2020 3:57 AM EDT</td><td></td><td> </td> 07/28/2020 03:57:00 AM [facility] THYROID STIMULATING HORMONE TSH <td>TSH</td><td>Timed< /td><td>07/28/2020 3:57 AM EDT</td><td></td><td> </td> 07/28/2020 03:57:00 AM [facility] THYROXINE FREE <td>T4, FREE</td><td>Timed</ td><td>07/28/2020 3:57 AM EDT</td><td></td><td> </td> 07/28/2020 03:57:00 AM [facility] PHOSPHORUS INORGANIC <td>PHOSPHORUS LEVEL</td><td >Timed</td><td>07/28/2020 3:57 AM EDT</td><td></td><td> </td> 07/28/2020 03:57:00 AM [facility] MAGNESIUM <td>MAGNESIUM LEVEL</td><td> Timed</td><td>07/28/2020 3:57 AM EDT</td><td></td><td> </td> 07/28/2020 03:57:00 AM [facility] BASIC METABOLIC PANEL CALCIUM TOTAL <td>BASIC METABOLI C PANEL</td><td>Timed</td><td>07/28/2020 3:57 AM EDT</td><td></td><td> </td> 07/28/2020 03:57:[address] [facility] CT HEAD/BRAIN W/O CONTRAST MATERIAL <td>CT HEAD WITHOU T CONTRAST [id number]</td><td>Urgent</td><td>07/25/2020 1:05 PM EDT</td><td></td><td> </td> 07/25/2020 01:05:59 PM [facility] VALPROIC ACID LEVEL, FREE (SEND OUT) <td>VALPROIC ACID LEVEL, FREE (SEND OUT)</td><td>Routine</td><td>07/25/2020 11:09 AM EDT</td><td></td><td> </td> 07/25/2020 11:09:00 AM [facility] DRUG SCREEN QUALITATIVE DIPROPYLACETIC ACID <td>VALPRO IC ACID LEVEL, TOTAL</td><td>Routine</td><td>07/25/2020 11:09 AM EDT</td><td></td><td> </td> 07/25/2020 11:09:00 AM [facility] BLOOD COUNT COMPLETE AUTO&AUTO DIFRNTL WBC COUNT <td>C BC AND DIFFERENTIAL</td><td>Routine</td><td>07/25/2020 6:27 AM EDT</td><td></td><td> </td> 07/25/2020 06:27:00 AM [facility] PHOSPHORUS INORGANIC <td>PHOSPHORUS LEVEL</td><td >Routine</td><td>07/25/2020 6:27 AM EDT</td><td></td><td> </td> 07/25/2020 06:27:00 AM [facility] MAGNESIUM <td>MAGNESIUM LEVEL</td><td> Routine</td><td>07/25/2020 6:27 AM EDT</td><td></td><td> </td> 07/25/2020 06:27:00 AM [facility] BASIC METABOLIC PANEL CALCIUM TOTAL <td>BASIC METABOLI C PANEL</td><td>Routine</td><td>07/25/2020 6:27 AM EDT</td><td></td><td> </td> 07/25/2020 06:27:00 AM [facility] EEG ROUTINE STUDY <td>EEG ROUTINE STUDY</td><t d>Routine</td><td>07/24/2020 1:50 PM EDT</td><td> Acute subdural hematoma</td><td> </td> 07/24/2020 01:50:10 PM EDT Acute subdural hematoma [facility] Acute subdural hematoma BLOOD COUNT COMPLETE AUTO&AUTO DIFRNTL WBC COUNT <td>C BC AND DIFFERENTIAL</td><td>Timed</td><td>07/24/2020 7:24 AM EDT</td><td></td><td> </td> 07/24/2020 07:24:00 AM [facility] PHOSPHORUS INORGANIC <td>PHOSPHORUS LEVEL</td><td >Timed</td><td>07/24/2020 7:24 AM EDT</td><td></td><td> </td> 07/24/2020 07:24:00 AM [facility] MAGNESIUM <td>MAGNESIUM LEVEL</td><td> Timed</td><td>07/24/2020 7:24 AM EDT</td><td></td><td> </td> 07/24/2020 07:24:00 AM [facility] BASIC METABOLIC PANEL CALCIUM TOTAL <td>BASIC METABOLI C PANEL</td><td>Timed</td><td>07/24/2020 7:24 AM EDT</td><td></td><td> </td> 07/24/2020 07:24:00 AM [facility] AMMONIA <td>AMMONIA LEVEL</td><td>Ro utine</td><td>07/24/2020 1:30 AM EDT</td><td></td><td> </td> 07/24/2020 01:30:00 AM [facility] DRUG SCREEN QUALITATIVE DIPROPYLACETIC ACID <td>VALPRO IC ACID LEVEL, TOTAL</td><td>Routine</td><td>07/24/2020 1:30 AM EDT</td><td></td><td> </td> 07/24/2020 01:30:00 AM [facility] PROLACTIN <td>PROLACTIN</td><td>Routin e</td><td>07/24/2020 12:59 AM EDT</td><td></td><td> </td> 07/24/2020 12:59:00 AM [facility] BLOOD COUNT COMPLETE AUTO&AUTO DIFRNTL WBC COUNT <td>C BC AND DIFFERENTIAL</td><td>Routine</td><td>07/24/2020 12:59 AM EDT</td><td></td><td> </td> 07/24/2020 12:59:00 AM [facility] HEPATIC FUNCTION PANEL <td>HEPATIC FUNCTION PANEL A</td><td>Routine</td><td>07/24/2020 12:59 AM EDT</td><td></td><td> </td> 07/24/2020 12:59:00 AM [facility] BASIC METABOLIC PANEL CALCIUM TOTAL <td>BASIC METABOLI C PANEL</td><td>Routine</td><td>07/24/2020 12:59 AM EDT</td><td></td><td> </td> 07/24/2020 12:59:00 AM [facility] GLUCOSE QUANTITATIVE BLOOD XCPT REAGENT STRIP <td>POCT GLUCOSE, DOCKED</td><td>Routine</td><td>07/24/2020 12:53 AM EDT</td><td></td><td> </td> 07/24/2020 12:53:00 AM [facility] CT HEAD/BRAIN W/O CONTRAST MATERIAL <td>CT HEAD WITHOU T CONTRAST [id number]</td><td>STAT</td><td>07/24/2020 12:38 AM EDT</td><td></td><td> </td> 07/24/2020 12:38:59 AM [facility] BLOOD COUNT COMPLETE AUTO&AUTO DIFRNTL WBC COUNT <td>C BC AND DIFFERENTIAL</td><td>Timed</td><td>07/21/2020 3:57 AM EDT</td><td></td><td> </td> 07/21/2020 03:57:00 AM [facility] PHOSPHORUS INORGANIC <td>PHOSPHORUS LEVEL</td><td >Timed</td><td>07/21/2020 3:57 AM EDT</td><td></td><td> </td> 07/21/2020 03:57:00 AM [facility] MAGNESIUM <td>MAGNESIUM LEVEL</td><td> Timed</td><td>07/21/2020 3:57 AM EDT</td><td></td><td> </td> 07/21/2020 03:57:00 AM [facility] BASIC METABOLIC PANEL CALCIUM TOTAL <td>BASIC METABOLI C PANEL</td><td>Timed</td><td>07/21/2020 3:57 AM EDT</td><td></td><td> </td> 07/21/2020 03:57:00 AM [facility] BLOOD COUNT COMPLETE AUTO&AUTO DIFRNTL WBC COUNT <td>C BC AND DIFFERENTIAL</td><td>Timed</td><td>07/17/2020 9:17 AM EDT</td><td></td><td> </td> 07/17/2020 09:17:00 AM [facility] MAGNESIUM <td>MAGNESIUM LEVEL</td><td> Timed</td><td>07/17/2020 9:17 AM EDT</td><td></td><td> </td> 07/17/2020 09:17:00 AM [facility] COMPREHENSIVE METABOLIC PANEL <td>COMPREHENSIVE METABO LIC PANEL</td><td>Routine</td><td>07/17/2020 9:17 AM EDT</td><td></td><td> </td> 07/17/2020 09:17:00 AM [facility] COMPREHENSIVE METABOLIC PANEL <td>COMPREHENSIVE METABO LIC PANEL</td><td>Routine</td><td>07/16/2020 4:33 AM EDT</td><td></td><td> </td> 07/16/2020 04:33:00 AM [facility] XR ABDOMEN AP ABD SUPINE ONLY [id number] <td>XR ABDOMEN AP ABD SUPINE ONLY [id number]</td><td>Routine</td><td>07/14/2020 9:31 AM EDT</td><td></td><td> </td> 07/14/2020 09:31:35 AM [facility] GLUCOSE QUANTITATIVE BLOOD XCPT REAGENT STRIP <td>POCT GLUCOSE, DOCKED</td><td>Routine</td><td>07/14/2020 9:09 AM EDT</td><td></td><td> </td> 07/14/2020 09:09:00 AM [facility] BLOOD COUNT COMPLETE AUTO&AUTO DIFRNTL WBC COUNT <td>C BC AND DIFFERENTIAL</td><td>Timed</td><td>07/14/2020 5:42 AM EDT</td><td></td><td> </td> 07/14/2020 05:42:00 AM [facility] MAGNESIUM <td>MAGNESIUM LEVEL</td><td> Timed</td><td>07/14/2020 5:42 AM EDT</td><td></td><td> </td> 07/14/2020 05:42:00 AM [facility] HEPATIC FUNCTION PANEL <td>HEPATIC FUNCTION PANEL A</td><td>Routine</td><td>07/14/2020 5:42 AM EDT</td><td></td><td> </td> 07/14/2020 05:42:00 AM [facility] BASIC METABOLIC PANEL CALCIUM TOTAL <td>BASIC METABOLI C PANEL</td><td>Timed</td><td>07/14/2020 5:42 AM EDT</td><td></td><td> </td> 07/14/2020 05:42:00 AM [facility] Results ID Date Data Source [id number] 07/21/2021 09:04:17 PM [facility] Name Value Range Interpretation Code Description Data Alisson rce(s) Supporting Document(s) ED Provider Note [facility] KUZVMc1dOdOVJzQh09/WVHtgZKWcx5LtNQmcVZj8XVzuMFFjT1KeQKB9gD8dJSE2HDgSTxGbQcSlDYI7 lbm [file] 0gDQo+Sz5Mu8UfuwK8bmCaJQm8VPCxCh8TPUJKR8GMUb== ID Date Data Source [id number] 07/18/2021 05:33:59 PM EDT [facility] Name Value Range Interpretation Code Description Data Alisson rce(s) Supporting Document(s) Consultation [facility] ZEIWWw4gCiQBVkYx66/TJWuiCTKjo6BlEYsjDOb7QDghTGFnS0BfFVG4lZ4yYUJ9AKzPMvLhXeJpKMS4 lbm [file] k1PhkMPCOi/Zyy0gVnaOzhQsj/3ND2HTeAsZ/tt+Verónica [file] OaTPagK/qrZSd8soa1IALZFWRwCC7WyCJ/KZoA+josé [file] StAu0I7aI64E90ymHtMYKerfO7S11EdFnmMqirr/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 [file] ICAgICAgICAgICAgICAgICAgICAgICAgICAgICAgIC AgICAgICAgICAgICAgICAgICAgICAgICAgICAgICAgICAgICAgDQogICAgICAgICAgICAgICAgICAgIC AgICAgICAgICAgICAgICAgICAgICAgICAgICAgICAgICAgICAgICAgICAgICAgICAgICAgICAgICAgIC AgICAgICAgICAgICAgICAgICAgDQogICAgICAgICAg ICAgICAgICAgICAgICAgICAgICAgICAgICAgICAgICAgICAgICAgICAgICAgICAgICAgICAgICAgICAg ICAgICAgICAgICAgICAgICAgICAgICAgICAgICAgDQogICAgICAgICAgICAgICAgICAgICAgICAgICAg ICAgICAgICAgICAgICAgICAgICAgICAgICAgICAgIC AgICAgICAgICAgICAgICAgICAgICAgICAgICAgICAgICAgICAgICAgDQogICAgICAgICAgICAgICAgIC AgICAgICAgICAgICAgICAgICAgICAgICAgICAgICAgICAgICAgICAgICAgICAgICAgICAgICAgICAgIC AgICAgICAgICAgICAgICAgICAgICAgDQogICAgICAg ICAgICAgICAgICAgICAgICAgICAgICAgICAgICAgICAgICAgICAgICAgICAgICAgICAgICAgICAgICAg ICAgICAgICAgICAgICAgICAgICAgICAgICAgICAgICAgDQogICAgICAgICAgICAgICAgICAgICAgICAg ICAgICAgICAgICAgICAgICAgICAgICAgICAgICAgIC AgICAgICAgICAgICAgICAgICAgICAgICAgICAgICAgICAgICAgICAgICAgDQogICAgICAgICAgICAgIC AgICAgICAgICAgICAgICAgICAgICAgICAgICAgICAgICAgICAgICAgICAgICAgICAgICAgICAgICAgIC AgICAgICAgICAgICAgICAgICAgICAgICAgDQogICAg ICAgICAgICAgICAgICAgICAgICAgICAgICAgICAgICAgICAgICAgICAgICAgICAgICAgICAgICAgICAg ICAgICAgICAgICAgICAgICAgICAgICAgICAgICAgICAgICAgDQogICAgICAgICAgICAgICAgICAgICAg ICAgICAgICAgICAgICAgICAgICAgICAgICAgICAgIC LbMZLcAIMfSTKzMHBhBZNvJIRtVGUxPGSiNEEzTYHzVTGuFOFqARFnWTBcNOPlCEg2O2bdJKDhCIGqII 1eXNn6Tj3+BZtHAnEnRKB1aoNiuF8CRM3el2BxXLjaQEHvm1AxEDe8SX6BASRqEFsyJW0CCGpmfs6PTK EaOVQuqZUCg7cbEeKbFWC2YABeKeymWG8WUZLqJ7uk kyGjBVLkKIGXCIweJGXWTCaiETHPOAHnJLAtWvUaRyNySMUfGNZjMJXYJHV4MAOxWjFtTQGfXPJvRcId AKAZBI0XOwGfW6RdsP81WSkHWf7+LDpaxhOnJgsHVsKfRZYxz1ZkZCb2RI0BDZJuSkmft3GpOYAiZPIG YUvqGO4BHAJ5BDLvRKFqId4WQBJzK232upVzDB2JMa 8WJgRpGT7tkv7KMUQgBQLsVblVPbw3YSkvHH3BbTVkAWrLa50smBx0rsSqjNLZHRMwjgNBvDjezVDnYF 5GCvSjSFWzQVHiXROcSbWnNJAwYHogUGTFMYuKQxZrZ7Jgx6PqHgD4SWCsEgWkJYshZQTsCxQ1GB25gD uhUC5GACBbABFcVE92URDpMFDgGt7IQt7DIeNoVN4w ny5JSSXsLEGaTpmRRvc3QBsfAB2ThNUxT7EqvIMlu0eODtSiP6GQCBU3HVXuQj6DRBWjRuLkZKKaMGcs OO1qLXJmSZAGrWljlbG6WD4OXC9mpnYbQF5VKqFxMr0nAi7PEhQlK6DbW0NkEUGkTKUWDAllUU2QAVyx YT6iJN9Fi2QBwGDcuE2cpu8HJYXaYGOhSxjrur3QSa ubG4N8hFcfVNPtOZGaHTYDQAqoEJ1RVEWiUMT4ZGX6GUNkGMIRYfNoY41qPO5VS1Jmu09aOdH0GILgUa HcNTncIY69cBebgpRpkQWfwVxeXO9UVa6+DQplbmRvYmoNCnhyZWYNCjAgNDQNCjAwMDAwMDAwMDAgNj V0NzCpTv1JEVOjAKQyTMLgHzGdGNEtCQMnBVpzOFMo XJB4Ley2BLSuTEFcTK6DOlIrBDNrDdJiLCNaWVZvJQCtvx3CGNLqXYNmADF5IeTfEQHgPDIaILljGURz PFVdXGplPYWfHNNjJN6OJlDwEWLcWKOjMKKsGHZsAOLmhf4EVEUuBMVjPwCnNyChUVBfDUOvJVfoCACn SBF0STQ5XAJcMKIwLI0JXvFtDUXqXPi9WxUzHNPpCN Qikv0CSYJgJRMrEEN4UIAbBQZfOZTrPGorWSSmNRJrJEM2HUFpSCUlFS7JSfBdPECkFWG5YyZtMPZnDF Sfev8PHQPkJSTvZnyzQDSxTBNwISGvZGnqBDYkZKR7JWM5LVKeTIVgWG6ULvBcTPJeTxRuUOIpUXMaMA Wbog4NRZIaJDZyPJOcCyGwMTKtFPFvFCskBGAhPOUx RdB4BYXlMHAbED3VNlSqVETuHnC0HeJkZMJhGYTifl1LBQVjLWPxJNetNYIkSFIhOWSmDNbkDBGjJSV9 WIY9PKIqYMVqUY2ACkSiKEMmBiJcRINtJKRjIOThsp1TQFOhTQBjYqB5GjHrSKGvKWLnPSnfRTHpNUN8 COX2QQWsJEWiVV9KCqYyHSChIzz0FQLtZCNuZMDska 9QLIPwKLPdDya2KmWuUFUuUZYxZVnfWODsQYC6BJH5IZJuKTGiZC6MBiFvSRPsOoiwFQswDDWtVHIkxx 8YEIJeILPaPXUiXwOaUPFrQIAtEXuaUYRpIBVsTPq0VPFtMFMgVU3BLtZxSSLgHkLdYAXwQOJtBNSyso 7CQQWvFNRmLLB2ImWbHFRwUZBvSElnOVEoQPL9GCPs PVAwQLVlOU8JJuGrNKYfGFocSFJuISDwLYAflk1TKBYsXUZ1IkH3DARkNVKwJIRuQRsiMTAlDXS4RPF0 FHUmDXQlTH1PFtQmKYWvOSawZsVmNGRgWKUrld6NLLHjBNN3HOVxPkRsXPSuABTzKEqxRUJlCKP1XTv2 CVTwODWcMB6SAlYrEBUlRBswUdIlZZUsWGRltp0AHY XqDEJ9QFwqZJXoYTVeLUYjQQojOLNxZKWsKgx9BCUwEDVaZB5ASmIpREFmEeEyYrhhVODgHLEmxi9CJI KkNQQ8IBOaUdTePZQcHJHfTOh3daRibSPoRVk4WD3SM0IjuwFnXYYNRw2Ip441HQLgQRUzDv8ID8vaUs 1hOSOfSBIMRl7HCJg0ZeFjWjqyVQX0Ngk7WWT7TmXz MaToKaT7CYR9NOTwWhV+SCkeLRAnK7JhLlz3EKo0SYprLKApRfKhUHFwTas9NWMrZs3gQOWYBi9+DQpz rBDwmVbkPATQUyDrCpD6EIijZBEVAj8O ID Date Data Source [id number] 07/18/2021 04:19:00 PM EDT [facility] Name Value Range Interpretation Code Description Data Alisson rce(s) Supporting Document(s) Progress Note [facility] ZUFRTo4uLhQOJyNb26/PKXyvEALxb6ZyTGttBCe4PPjeEXAqZ9XkLMD3zG4bXOQ1FUiNCpAwIeEfBOZ9 lbm [file] XSANCj4+WEwwtVTgwLivJPSUKvymFuGDKeFtQR7ATZs= ID Date Data Source [id number] 07/18/2021 04:14:55 PM EDT [facility] Name Value Range Interpretation Code Description Data Alisson rce(s) Supporting Document(s) Discharge Summary [facility] GVKHZj3aQpJQNeGy83/ZBCcnVDXhn6YvSMagRDy9AEbbRAVdK4IiOSA6oM2zUXV2CEcKTfEzRhEkZVV8 lbm RfDraVKsBmDVMsCggBQrJxOVfjNibzaYZvWY6FdIR9NWSzJ73qAIZhPCVlJ6XqPBBrBPr+Ry6CGQJpeL JfRV0FIxwX5I6oh+GMGS6z9D3zvVXhN2izp9zbCTZjtvqxxermhdLp0sP4tAzSKqyGqJC0Nnye3ICX4d zFPkkikCb7xZ7EWl0LaRI/uTPYvthxA6MMxFEblfcy 9TOIbHGxEH/8t4kyROV1yf3WSmBswXg0oeEB4Clv16/tuhz52flyhGxEe+iCpDi8T+xGli/N00mQzzqz Am5Ucm0jjyhIp+LTq+KzTfPoMM9fdtjoFiM+k2ygVf00wijp84OQ4cWYRMYBaHtfBsVjqGItPeDcAlrh 2TS1Up4vxC9tGsLYbqc+uDsiV3jD+LTBjywg9hoEi6 dcx9FvHaPfUo9g5PfDJEqKbrXYDumN4Vyco5VpoOksrmJYbTcqz2xH4pueqH5aaeJ2YE9RYy1piNRBy2 AeLp9BHAh7uXCon4dqWeekTP1xwQH8bzrwyeFmdt4/vaPWqh9iXOnDkE/uN5koDgU7/Ec59kOnvZXxGe M6p2Uo9hN2i49WzyBbEbc6c77VvRUtngN+0y+senior care/Y ZhAQ3DKSvh48JBE+4PBITC853yB0b0cSL092/GL09+XwGLFJo8GPH/o7kRVzH5ZZS1udFX+3siYo4yqo hVKvlOz6whDcstNko7M2SeJsyMTTxIleoKrAQ/VnLZKkoXDEkk3NL6Y3mF6XgtTh/jLukZQXSS192CcB wsNC4nL+FwImNsE9WpRCxjhBS2Z3iJlozmHrflLb+e U4MUJgOMoNDaQpGBZsor3LzRah9JqFPwHcGnf7LCw54zogbnlWx7w8MFtKz1ttIRtLqsTBkcMdxhByew n98vOdgR0QqoiPBzhMx9pmTtw97gghXxAbI+WdRohJP4SEd1UvqauflEb5u/c3QUogAYvYIEnJRgV7Qs fl3nFmajeeNZOqq23rhmucdoBxglnl5QPzQyEnnQXU [file] ICAgICAgICAgICAgICAgICAgICAgICAgICAgICAgIC PqMPOaKGLhKTSvDBZrMAUtCPIoGVWqJS5VEPKsBHAzHNIoAMVvAHJlDVKgXJJtXGVfYRIcTKZxIQAvSE AgICAgICAgICAgICAgICAgICAgICAgICAgICAgICAgICAgICAgICAgICAgICAgICAgICAgICAgICAgIC WwAFOcMM2JCPMvZHQjJPEvSQJzUROoYPTfFGBqTZHb ICAgICAgICAgICAgICAgICAgICAgICAgICAgICAgICAgICAgICAgICAgICAgICAgICAgICAgICAgICAg IBVwALMnUAOlHOMgWIBtFH6CBVEqTOZvLYZyLHKoCNMnFHRvHPAkFEQxMBKjIFVxWBKcGSZfHTAnMTBa ICAgICAgICAgICAgICAgICAgICAgICAgICAgICAgIC CrSZTsFZCwMKFtMCSsBYTySOYuRWJuVCBqMK2DYDBoDYSgVMPmMJHxEBKbGLFoYAWySOIrCUYxZWBvXC AgICAgICAgICAgICAgICAgICAgICAgICAgICAgICAgICAgICAgICAgICAgICAgICAgICAgICAgICAgIC FtBYRrZVYmDG5RRWLlAVTnLYEzNMMxLZNeRPEcVNWk ICAgICAgICAgICAgICAgICAgICAgICAgICAgICAgICAgICAgICAgICAgICAgICAgICAgICAgICAgICAg BXPrLFYzYFLhWAHeBGCjRPDiIE1DOTXfJNMzZDNuIWFuQZBjIKAxYIPvVNJqSJVpLLYeJCRaNBIfOJQx ICAgICAgICAgICAgICAgICAgICAgICAgICAgICAgIC RvAGHrGKDoEKTeBIVoUDEmGJDqIBCbBRKiILPlAE5RXMFsQRVfORQwVLAzHUTpMOImLAJtRTDrULEyQJ AgICAgICAgICAgICAgICAgICAgICAgICAgICAgICAgICAgICAgICAgICAgICAgICAgICAgICAgICAgIC IwHPWjIHViVAMnEG6DIGRgKGGqJISnGTOoHKSwPUJv ICAgICAgICAgICAgICAgICAgICAgICAgICAgICAgICAgICAgICAgICAgICAgICAgICAgICAgICAgICAg QZCyGEKwCESgGSVlEQIdMVXwZIWtFY4WSNBjBQBvCFKgJVNcZUAdNHVcQAUcAIAiBZXaMWLyVEIfNAWm ICAgICAgICAgICAgICAgICAgICAgICAgICAgICAgIC NfIOAdDJWkVYRwTIUrCVOoFHJtOWNrBCYsAQKrXCJkFA0HOX30mCOor8T3CIOtUV1cjds/Wq5PCPhrqn UxhPLhDQ9CBlTdPL2rbf4WRpLcEC7jlw9XBIlTTsSiN0Q4yITgKDGrQGKHGvMiF30cLXkoBq05WWhdBZ HzAqGoZOf0Kd2SFjUpF6upIOMlJkN8MQVqQnN8PLZn EcD0HXOxYiQdANPxNGEhMOZqXLSHRGU8DFZePrGsVhLmYPZbRA3MZZWkB376koDtGs2FXs9SJkKfAY6d ef7WCZWcIPIdGcqZAnf8ZBaeNH4PtZOxaMU1IsHoVBQNVcHuK2aqf3YtREZwJWRHTIhsUT8Ei4WblWRb DQo+Ar4NMP1ve5ExLCl4RnPsUS3mxg4LFUtISiAsB4 DnaKtaIRKho8KtWSIoXQIHuL2zDXP4JDA8EVj4tcTnIHOgtWUgYRJNMECpeOVoDZ1jPa9rNYYaSXVmUp N0CWLJCJ4ULZNtMUAwdRGnOVKvSGPNIA2FNBxeDIM0GTIfrcKkpKDqRHfvJZ4XPQCrihHqTUAkQSCYNV o+Oq7FNH0hr7EiAUw2LJZfGN2yhs4FXWoXXhAwA4J6 rDNtY2Y4PYrkWr7BYMPqOMFzIHWxQAASTSmgER9WXL4yklL9AZ2ZwIPfJLSeCLNwyHRoYPo9Q37xeCYd SAvyPI5GXJE+Patricia+Iq2CYLZnWBVtNKGnFxYaHOZUQlVtE9LjX7RBu5BeU7DaPY24jRsjwnMeYNexJR2Z GU2vYKDlOSVPAQ2QoHZdcE6lmrH4BoOjLTTALvIfK5 4ghAEgUOJiFNVmOIYaZd5NSILiM2SmolCvnLjchvCzNVNjEBDNKZ8HQYjgjuAglKRyuImmJB74iCrnWB 4IXl0WLwWoBH1bah0MrGBoYx1FEAE7YS6RNAVxPSOmGTWnSZE8YJMiAlSzVMlrOHKmIELzYWK1GTZrPT RrTE9TAcFqSLXjXAznQENyYTXjTCUgzy1EFFXqCFN7 UDrwPFBeHFVvVCFiEWwbVNMuAVKpRSD1QJUyILXtHK7UIzGxECSyFSE7UmDiREPmQXUtyd2ZZDRiLVMq VSDjUANbOIGuPNYlETsvAXLxEZY5OzW6LXKxONErYX7KTlIyGQLoMTn1BYcjEFClWBZaht0ZSBIzJCNb Smf1ZNGfUJHxQOCeVQafRFCuKEMeKJbfDEIwXCFqYO 9PPpKzMLLrCYVmTBAdZWVpOGMamu1GDEWlXXXoUrZyLTQuCZFsYNIcVTfbLXOjDDX2FMSqBZAgBOBdDV 3ZGgWoZCPvZpApMnhaTXUkYSZrxn5KWTKkOTBhUwY8PIPwIJPeXTZaDMqgRZHnVCOwYlP8GAYsNVVsPN 5SYiUdBTEwUdU1VxsfSPYlBRUcft7LWAVzMIGfURC6 ZEBeKWAzEOXwDBhoTAPwAVH3FtG1NPJpWEYaWW6EByGcSRMhGdD1KONtDCWmNEFycu4IFYHjDDUeSYn4 KJWsZGYwHKYoNZdmMJZgRAX0EIYnBZHxRKIaCZ3VBrVhWPTvJoxsRAJwKEVlLNCkrw3XPBSaPVClGgGu YeSxDWIbWYAfMTyeCDIwUFL1JpngNWVvXGJsUO1WQm DgGMQvAif3MJKcKYGdWHFvdw6LGLPsQNOdKJY6PbPbZCSpBMGxKUeeVCXiEVWgCCK3FGWwFRMzRS0PTn GqHNLkUTK8PVEzMHQaBPLxvq1QTKDmXGJ0ZWB1WSMzDGMhNPPjMXwfPWTbSONwADOkACCpIWRqFS2EIr VuKCLgROUhKZayVGMySTCdhu9IYCBlKAL2QMr9ReMg YFJdIGTnCDbiBHTdROXeNWsgKBVgNQHcXH6OUdWfTWYiLLXtRDcyZDRbGIIezz5PMLAnRTV5KsKaROXm OMBoBUSmFHzlFCCwVJR7ZVLsSJTlFIQzJK9XRcItZQHqFZm6TOSqYKHgQVGesx1OJPGxNCP4Bhj9BSCo TKLwMTWrHAykNIBeAWB4LNJuXLJbQLDqZN6EVyZxXO YyYMx5NHBoUCEcRFUysh3MCKYnSUN2WIH5HHGfWLOgWMDgCOyoPJEyNASnFTC7VVPhJFAkOM9ZJiQkGU GrWRXhHgniBLYtNAIvvs7ErKPaoOzuin3PPIwRRu8QsOsvDDZ2BVfuZg3gpMB2XYTiGWOHNr5IzqNgQL HrDMGCZLbgLGDvPVT5EiKbQXH4M7PyEXYcZknkDnAx EVVlFUivTXB0JWulOzX0SvEyQYZiJiZ7KKVpDID0SUYmUwDuTwJmG7OwDSo2G1X+JT4pHQp+Jd6Oc7Hk ljX0obLuMYq4KOAtNz5OEVJXY3UQPh== ID Date Data Source [id number] 07/18/2021 01:58:34 PM EDT [facility] Name Value Range Interpretation Code Description Data Alisson e(s) Supporting Document(s) History and Physical [facility] SREHDb0zWrGXDeQr58/YYUhcXSBrv5GsKTksLQs3HDkwMNCuM7VvPGJ7dE0zDUJ7JLfZUdJkGaKjUWV2 lbm [file] 6GRgZsAfNdSSZrD1YlDs0g/Fw6LxJWuXpIp0Pb7nrS4Od+Verónica+dcJ+MzFBoqMeoZKF+AcOxODOgOfJVra NXnYGA2qfZO1zuC8xxX1G4FFirDuJ4vpu9txO+kFnY VgYf3G7opmmjU3U6Qfc8Q3ThkX99v+F+29nG1I5fjXd/aGastzYTsv0wwhFO4uIag4UF9Tx1U9B6Qdc4 A0pENIxY6WgC+NmG3E/2rk+xUC17/lbUdhJ4oJGfIR34cXsYadRcS9zjwHoeIjJtGKrw/zkVw3E5AOiM Zqlwoe3cz8ddb6ix8Gb668YfprX3AVtB/1+njdJHv3 Mw1W8Ko235ql3kMc0iV4K/I3WfofxQ0ElAWDFvKd+EeKCM2vc9eE2ljW4zSSY/vW9H9LItx2Mg+8m8rq rUkdyIHuanoNRIVCjsKXQaBs3Fedbl+oiveRcNl0Izqv0z4S4DsBYDmI2OEer4CmV8iUw1T5/pvlmaib EG5XgWO2eUWTZNv6BRjjqAWeZkef5sG8gNcIU8dT89 lj8BF8svKOl3LPSU2JyfdTuP9yJkclVSB6aCS0/ATJ2Z269BDh8boZt0Dx42pxUuDfAs4/BMvla+Bqyw Y3sVsHfr0Z5ucsTdw6sCO/IjEQjb4kLAvdG+1Ld7p7oWq4TAD1TWU9IYCjm9NkLzSyck21q6U6038p9W f0x3X/Nicole/vYtotNp4xcpkvDLaMVc4zCOCws65lEil [file] BSAsWdSsZF0NSj5EVhE3ZJK1rEIcWs6LZOh2JMHIUrHbWH1FCOc= ID Date Data Source [id number] 07/18/2021 10:20:37 AM EDT [facility] Name Value Range Interpretation Code Description Data Alisson rce(s) Supporting Document(s) Progress Note [facility] HUMXHg7zGnEMXpSl93/XZBbjJXXcg8YaHRluHDx1KXogHWXrO0FdIYL0yR1bPCH9UGlBBqJqCvZnKRF3 lbm [file] D5CEp0O4Z0GtUhWfafJEGdWQHyRbnnQfnpLTO+IF 0gDQo+Fd9Tk4WrezC3hdPsMJg3Lkh5VJegDSZFPj1M ID Date Data Source [id number] 07/18/2021 09:50:59 AM EDT [facility] Name Value Range Interpretation Code Description Data Alisson rce(s) Supporting Document(s) Cardiactroponin T pnl SerPlHS 80 ng/L <22 H [facility] ID Date Data Source [id number] 07/18/2021 09:20:[address] [facility] Value Range Interpretation Code Description Data Alisson rce(s) Supporting Document(s) Levetiracetam [Mass/volume] in Serum or Plasma 4 ug/mL 12-46 L [facility] ID Date Data Source [id number] 07/18/2021 08:16:[address] [facility] Value Range Interpretation Code Description Data Alisson rce(s) Supporting Document(s) Progress Note [facility] ZLRQIi5hAnDEDrNg00/GQBbmXKXho4LiYLukASd7JWjhNTCuA3KcNIF2oU4bGFB4AOpPEsXiNoQxHGK2 lbm [file] ICAgICAgICAgICAgICAgICAgICAgICAgICAgICAgIC AgICAgICAgICAgICAgICAgICAgICAgICAgICAgICAgICAgICAgICAgICAgDQogICAgICAgICAgICAgIC AgICAgICAgICAgICAgICAgICAgICAgICAgICAgICAgICAgICAgICAgICAgICAgICAgICAgICAgICAgIC AgICAgICAgICAgICAgICAgICAgICAgICAgDQogICAg ICAgICAgICAgICAgICAgICAgICAgICAgICAgICAgICAgICAgICAgICAgICAgICAgICAgICAgICAgICAg ICAgICAgICAgICAgICAgICAgICAgICAgICAgICAgICAgICAgDQogICAgICAgICAgICAgICAgICAgICAg ICAgICAgICAgICAgICAgICAgICAgICAgICAgICAgIC AgICAgICAgICAgICAgICAgICAgICAgICAgICAgICAgICAgICAgICAgICAgICAgDQogICAgICAgICAgIC AgICAgICAgICAgICAgICAgICAgICAgICAgICAgICAgICAgICAgICAgICAgICAgICAgICAgICAgICAgIC AgICAgICAgICAgICAgICAgICAgICAgICAgICAgDQog ICAgICAgICAgICAgICAgICAgICAgICAgICAgICAgICAgICAgICAgICAgICAgICAgICAgICAgICAgICAg ICAgICAgICAgICAgICAgICAgICAgICAgICAgICAgICAgICAgICAgDQogICAgICAgICAgICAgICAgICAg ICAgICAgICAgICAgICAgICAgICAgICAgICAgICAgIC AgICAgICAgICAgICAgICAgICAgICAgICAgICAgICAgICAgICAgICAgICAgICAgICAgDQogICAgICAgIC AgICAgICAgICAgICAgICAgICAgICAgICAgICAgICAgICAgICAgICAgICAgICAgICAgICAgICAgICAgIC AgICAgICAgICAgICAgICAgICAgICAgICAgICAgICAg DQogICAgICAgICAgICAgICAgICAgICAgICAgICAgICAgICAgICAgICAgICAgICAgICAgICAgICAgICAg ICAgICAgICAgICAgICAgICAgICAgICAgICAgICAgICAgICAgICAgICAgDQogICAgICAgICAgICAgICAg ICAgICAgICAgICAgICAgICAgICAgICAgICAgICAgIC SrAGHiFFFeCBCpDWYmNHBtSEMdTTHnIGWlKMNdODYbALUfMMHoFIXuGTMxNFZpLHKtPEStIZn3G6fkPO KtKEWoNP4sLMw4Lc8+NVeEHaYpOLA8jpVxqN0DTD8sj5StCSktDYYzf1DePJv7CF3PZHSjRFouCT0VKJ izzc5KQVHwALIkoQOUy7zmJwYjBRZ7NSLrWsleCX9B ZODhU5aibwUbHDIaYZCKLY5IAtCsE7LoaN80XAOERo4+PWkbcdCzXkkPChY5QBVfz8PxFDf0RL9QQXPz Rzaip8OgPAWeUCRHAVueGX2QNOJ2PAY5WJBzOx0VCJFsD689csHmAP1ZOe1JYwSwIO5loo6JHZGhEQXb CrmABsb3OIrcPB8KaWZiGFqFvh7hflMscpMDw1Dvgi IvvRHFMMTqtXSvfrKCMJBpq5I5VVSFEeYatGWjYJ5kHo2bKQLnNMC3MrG1MQJXEG3KETHlLXWuoUSuUT LnSTLWUZ3XGVnxLYY3VDHwimUtrGZcRGxuWM8YIHEnogYlDCSyDOLOKWr+Co8SUO6yv9BnLCssSmQnNS 1tuk6WPWcLNeVwJ9E9nAIxZ8N8WJsaZa9OIZXrCGUb POBzCDMYLFypMO8UXN2lvtW8HT1MsNBgQJHwCWAwpMSiGTf6Q60ovXEwGZwtDT7OSJZ+Patricia+Oq6TIWBl TASgKFLeQyVeGSVSYtZdU4AjK6TVk0BnS7DwEZ99zOydznMvUEoxHQ0QLI5gRREaHGIYYH7LaDYuxF4p wiWiRILvMJFDUqOoI26ftIHeGCPzXSObFBLpFx1ZIV AnY8FqxyVhlLfnwpLoIACfBEZRAY2ZZMvaarMxcOWsmZjnZV73lMaqTL9TQc5QDpAsMU2vkv3OcDTqAz 4VZYLlWy8CWLUiPSWpRALpVSE0XMBdEdAySFvdVGEtSIEdUCH1CDPzIVReJM5QWqUiACIcOUZ6BPwxHE LxKNFulx4HZJWyDSVdXyPcKFLrADXpNNOqUAmiJAMl EMTtEMO2BQXbFMMeAA1DLnDiCHFtNSP7WzchQXTcBOEmwv3MXMHjZEPgYSs1BrFuXSRzSHSfUCgkTOSu GUImVAUsXGBvVOVrIS2VWpAoEDDhFHHrOqggFZGnBCVleg1HPXGsOJNtVzUqNnSrDJKfKFJmJHdfWYLl LMG9MZw6EQKgGSFoEN2OZnOgIPMoNZVnTetdCWFrSJ Vera8DSPDzIJYkGUZ9JHPfUSDaTYMpKBvdOJItTHG3ICA1UZGnAGSrCA8NWoIzVFZmYIS8IAFjNYIhXF Iakd7ECLIyNPKhIoR7LbFpKEGzRLKvOBpnRRKdHAU2HpX4ZTKsWVCdAB5XQkIxGJveUXSPGsl6VXhkK6 e8PAWoPf7GR5Fcl2XpJLPbHCIHAZdmKI5bmgWrATRi Vz2JW8tKXfolWVS9LpOgEjEtEBHhHPUfOpOcLUCxKvXbMTi0QSUrQT4gWZF0AMhlGNWhCSA3NUQ5NFMj DtWoSGBrFRCiUmm3ZdB9EnYoHD5FUz2QCuB0DGV4mAQjKo1YEpf9Rd8HPJUZJ4GLOt== ID Date Data Source [id number] 07/18/2021 08:11:52 AM EDT [facility] Name Value Range Interpretation Code Description Data Alisson e(s) Supporting Document(s) [facility] FEALAp8wJbTPGgSzm8LwTrAbIEDgLG3nxut6S8F7oNEnZ3TfwPQmc5dcY7TjO5QhHDJzZXHEYN2KbBZl jb2 [file] xVlFr+N4skFtCfneh3893rjebxcqroCrNmlex8660xkoxotezxHzQhcdw04501cpypzrfzSaNmbmSkkd nfoS9fbk1pU6w8q6Yf8rvu1E78aenciwnivbm4539daahjfrvdveydofj3564t982Z8AFYxBS0l3RY/3 d/eGR3M37oZK2brGIl+/JacKvWf4kZ2eA71ijtBEjh 0pbgD4Bz5A33Mw6G+725/x+3cM2oCgg+EzGu7S9rkpS8zpwCtAN/kJuQLr5J/oV+hS2nYPiqrvVGhQOS L0KLQy0UttY/VUXlksjL8Bu5dMxRs8lLQ8eIFH5Gxe9Am4h/ZeezHn38WcyWdvo8BdjPz+Dc+19ua9Pj 3G0xN08Ci9W/oJ/YTeoXfoF/We6G48pF/Fm2acCDWc 2Gf7LwvFoIb+Q2/QG/X6oO63a1rbvv/tPWXoHXqHfqEevL+F0toyz7r6k8P620utiKKg7SzdB/R4f81Q H92xCxpSnA9RC8XtDCqRR6BMK23qRQ6kV63QvFnh4MDestOAzZdawPYlMVcrIVoU+sO2hX7u41dXN/QO /YJ+uC5bI5wWg52X0L1u5lb9o9tfv00867a+PKM/x2 /w/f9h9PQY9K+kr3JjyCjEsfcFr9qynaF6fzopC6lt9BJ55pFxDw0hr/Ue+S7ouiId4zo030HIDDpv3Q 6UtThU2ntAZcJGmZW6s1Ak7Wm5l7z78inyNmEtWLd4gYjfkY7/4jWeapRv/M0nzr5BrGWs8psNNjXPm5 Yv7JigT+ppVf/tmb+uu+1a0cujPpZ1fYfleZu6CbhQ jmLa9L3sgc29u4k6lwa3O4Qh0oqY3/VB470DkvK9dwrIVoFnubKOE1OskeSdOt2edLaF2/S4tstIgwE+ QL/9leFBh5X4Lkm9m64iE9ZQc6ZL/oYK2hv+Vc+z11VP+GiGrxq1jnf43Pn1VrXyxVN8xy0AjaaQdzg8 xO/DAjI7Il7Vp2Fdf1PikNE/irJAj+cL/9c1vaoR0c oPg18PkxUPa10LJ7L/nSG0a7tdpuwazq/cPBO2muBZpg7nORh1/rwU3q21XFlR9/PdYRd6x/mAK5aoU6 Harj/Fp7pdOgL/UbIp7e0zG+gKX2tOpjyt/Cq16UeTE1C+bGm2VQfwFL4+la4k/wq8Ua3eitour4Fwr1 +6331q9e8Cct0X/Wqud1o5ds2a/qndnp3sE+oP/ypT LqM/4ecktwZ09C/hqrMc1fPlyvJUpm8Tkt3rO+kS4rpky14cK+/QO/QL+lX69K/XSi7w5lCnEkk6buDl Qn2a79h5s8ZpUQ/TaeqNR4AgH+it+ua6j0Rk8SaCA/voTpWhd+gd+iW0Ci72h47i8EV7XO/QK/TtmUf2 eV9a0QNjh4y9p+zcWMaG7dO8jY/q5Dy1z+nk/LWP6V QZeofeoV/Qr9Jv/+py34mQ2/GcKj/f8C9wJ2FmT/QN+q65n31wP+jHM7/vMzk57+5rCE5zGPb+lcb7uP 3wg2yvD9xI0r1qxIs3Grlv4Ms/0nh/r087srU56a5G19w5y8iauT/+Vabk3/5V5ijZ/dVLbDA2Wf0W+r d/gnr0r0jvow//6hQT4XH9Kj5G2xH/41aT00NgJK// 6inX/W//6ilDj/Zu/jtpFY7R6Ak9d9Gk+Fdh5/KfliobuhuZ0V/iGYV/sgd8FIDpO+Em0h4H6sEpG1T/ XOjP27/Kd2T7V/Hu7EM2+D7wEgF7UtymNgtY3WH4E5shddkKt0KV0a2/r4V/5jAqD7jTW/QGfX3/tvCv sdtvs0M80MW79CC/mjkqPeHhQtoutxuCQ8odPA7kJB l/t3p4OsJw8KayN/QGvUE/oB/QT+tz2K94T9+gL/+2uQ1XJl5hh+/6Fh0GhrNk1V+i3JQf7QvpO00BuF 3Lefs0O/qaf5vW/Nt0Qu/QO+pZqKe+77zIz37PalScsdk+IRE1fdX+1RC/aohfNcSvGuJXLeNX+55b+R yxoL503TiW/tzQnyN+leUF/Ac8lG6TUOaCBnGL6Sq2 t/R88n0h1k0yc7i9Z0rl3Ko8tu5m6K/oJ/NBIY6ep/ZdgT4M8dv+VfQ9q+/6Jc3JpT1vjLIq6RA6Qbmh IX7VDO+u0p72qD70WB07RbDq+NToh03zL6LK86Gr5Q8WypP2PF/QK/QKfYO+Qd+u46Kv7Be5hK9Xc/YO nDtnzPSrZUmjIZfw0rzG8xz3LaX22mmERW+I9j77q7 K9E+1vqY1OzjegA9RmzL/ltSp+8DcIc6f4iWI9onjCyMfWt1h6A+JXMZ+GfxXzrItVGfOvK/QN+lbzdc Svto/fbTgt4kXTiMY/2j5Di/pM7t3rtE+yPK/6TfnPLeJXWU/Tx0lPc3Bd/kbEr+JnCn3BdasVnqKPGA rN5NzR0+A+qnJsviqesw+wdGv54BwRjg/2r+Lbcx9S yZjAPqOyJ/L5dY3jQ/1+bpg65M26Vl170I6bJ6qLuOUs1Us8Sy3u1/Zje/oFEa6r6C5nT/6tsql8NO+g Q2GF7Nq8Cg3Si8ZrtM//6pSh3+3dfnUP/cmEMt8Y46EouIyEZxN/GkhUv6EmDP//qoe+nm8P/yrLE/oJ dOBr09FO/ZeSg4D5Qo//Ku5n+7aV45jYMa4PuVyQGh xkHzjJuNA+b/Mqw03o9I/tjTjSPmxSZfx+v8C6cYGDqkgr/Sjv+EXX7uj7OE5/41ebMKxrjc/7kEmOG/ rJMR8THzh/7uFfxbOI+NV+9/c1vuTe01/KeNE+FNYmcN182JWomdZdqeSZspgYm91+1CVc1h39sm4a4t 7v4KWnAZ/oz5zpgc37hmiUUTt4k/hXWX/MF6cLArnU 85fiaLeIG99GvWN8Si9TW4Sj0Qw2q16Zy01O1+i9/I2vz40k54vH7F4DM5Rd0U/D50jke1NlLb7xwRF5 zwu0F6UbP2Nf/7qDugQJyhtb1Vbitk3Pi+tW34M9/Kvow+FfnfIz/veIX0X/cJfs7Mx/glB9Crk/jt84 ne5Hc3d4a298LssE+pp/f2Hkao9TK+9pKpde6d8UB4 W5Q9+hN+gN+kI2aQ2KE771p2q6MwgDiK/F+zJq/m6Rw3r1dY357so378jqyqQmzpb7eeTimosu5U36Mc 9qEqI2Ig/Ahw72Dj/4lWfZTpykR/bglFSq4U3c+0vf3FtrQRb7rV9g0+0OaoiiyaTvleSBmeakRVR2up XKVr8x/L1Zr3M4N5ok0k7kz4Dy6A+wzr1KZG//KmwV /cCUg354HkamrfHg+mSa8SsxjTK5ZlJnRvtyx7X4OlYo47CV+9onsmTRnsexkr0ysVK5T/ArJwp4EELY fr+eeuyq71+4Ep9eC96DqkU0tCK73SX/8cSX0tPyQ7/x+/KdUtwI8dxG+gf0A/qJeibqcVzXHz/Ewr9q oS9/5zE9FQi/Qq1O04Qky/LBT3UEsh0hnrW40ALqgU 8a1gcN+68s/nc9TnyZYlB/CagJKAbdh6Kjah8Q2GgA/ViWxdNW2ZH9wK0b5V2jzmdmyQ9iYg+Dh3ThIn 0rG0dStazSoxE60/nv6pQ4Wu0HgI/Nl73E0I01Usyc0cQtlz1zBp6rhI/I73V1zKU4Evtca/9gGb/qUX 0ipPB7awyTfmGa4WcxxG/DmuP+sa8V/mZEccH6Khk/ idPvJibup42qcrT6Hv/KOtob/zJS9G27+nNHf+1khp91ubV/d341hqx9Zn9am9R8jhGy6sprb/hXUU/4 V3Gt8K+rB5o5I4mY66UKn3Yyc96zI4skDP28mJuKYkU0C02VTThC5Q5LfYE7Wu1thhp+5zhRpgW1t1M6 6pShr+9fi/hV1t/gwVs4Vlfv0xoyRHCX/VcWo4Xj1a k8RnXV7m981hxXO+X9YHyO+FXPctU/3w0GuautrTbrOx+VzQZ9q/za966eIWph07MHtcnW/Gpl+fGHLf zbDlbjdL9ATaf/koV/leV11W+7r2K6LeUhFoWe2T/zWv81F+j18R/Dragan+Wga91j9s7ir2xoEykwL2fo5 ngh80dlQyOe5NychC6+5TEU/D4tl1kvX3TukzEi8i7 7+/qDU1AlPn/RiBkvSvjOfs5x30k98qv3MNS+Z2+r6K0XFjIxlYea4nsmcbAL/oB/YR+Qu/QO/QL+vXo 59YMFySb1Qfjw7S9H19Q+bP1e89Y50X5ih5l+2ptw7T2n9bJ/YR+Qu/Q7/RoqDc2m9ZUk7X84sCAphvG 4/OQGp9H+Pl4o52ox/K/l00k8d5td8xGcQSP4lxzgN 7Y/tVTtvrNbm/+y1w6vtqH1V4o/W5vi//s5tMn57yXB0X/bftosl0FaxN/krk3ivT274lAk0FYOy+Ke9 Glc9xd1WEr134S8/gzSS4Xc1v/0pm/6be+x7Xu+PIDp08tS9+4246IYF28/vpENb4p/BlUKb4VyR6Dzi 3svxqx/2p/17wCchT7Ougd/d6N8K/WQl1hb7WXoZE5 jZ1fs3K32Qu4WJpW3bAleIvN+YCip0zbvwam9pl8FnSdMkfQm6fg6Qr5pj42Bdtmd7I3+g8ChraY9OH1 3ufIW60v6L71x21YG83Dph8ag+D3E/FIg90mzG+QHl0k0HQswKY1wRL4bBZ2iSW8kXW8xHv5d1WPmilJ 3cbyj7zpkoIauF4d3RE1Hk27TL3nK+FfrShX/Gogfj XycqBv1eb+m2W12933Su7VOVxrTVs9XPI/Mana/zzCv8r/4l8pewKe/T5ttqDD5I4fGg+TsApyA8olb1 2now2E6Ww1qVmGkdBa7uxJ+NVA/UvhgbLrfQlKyA7OA+FHTK2OF+f07L03a11jL4xb4Uqc3A/stripe marker/Hjx rid2SMg5tw2n6kQ3H8Njl6D/lJbs2bc+Yq4U4JqqNu wi2Ko5PjZ8vuKU7hDA7o+ZhCA19zIkQbdzX1ycqZ9/6N4bW+D5lXB3xw/kF89t6g89LK2/lhdB2C81i5 UfXLkY2ZG1ar4mDoyd7nrB9O84z4MtIidya/Urqb72J7zXX+X9qELv808GjwHm70jbM5+Q+yZhrxDb5l 556S4pWw5Uu7ROZRrcCxejlbKd4wT59Yn5822P4F+F cT/dBEjmFeH080UyN+1YR/NdO/kyjYk2ywpfd4cjmMsJK5OlMB+XdE2J11UxWOB9RcsEyi+o7fG+qxsq mB7Lj2J/nLoT5nBnTeuCG9B6ik2gPvfF65g4+K34d/WtczvP6cF4TxKf493omOIc/vdT+F7txvl7n+iu hhyA1V7xw2TbaPz0XtQ2Pf0smmc2k2W9hC8YW8gN7R N/lkJ7Ka8M5/Ag136ccrBR2xdEqor/NtaG/D8w3/6pRRD/ghI27f4jd+mtu/Nb163xiRO6k/dcoKvULf oG/Qd+jj/R7kJv2y0Z/oB/QT+gm9Q+/PS9w43aWf/roudyU4Sc2Ka7Jq9W89Rr1UgmNx5Od2Y/oB/YR+ Qu/Q1/dLGc68kAwXSyEw95uuhVu53Bn2U31N79FaJY xonc11ilI13Hu1ckF+qzlqfWHi/SBtso3hdzdVmvM4Zbgc09Ib8NyULOl/7un8C4lS5f99Z+2fnLPWUy bOD85Z/gGa8w9kU7Bx61Z9WBb+MWcv+2//8ghOsyXzMxkwsgs4bU+Gvr5/5/bs0dc9lg2g3kwkzC1PxG /f/M1+hqVk7H8edqz/OmWp+a67h4dgN9W28og+VXxv uq3tTPIlU/S7vRr/je/90O/2Znm3V+S5b98XjqFA6G68Lh9F1v+50zbooyL7Cgt1/rhGOgsL4qG1PsE7 mh2Jn3coHU/QD+sF6BOwaMf+MSN+dcrQL+jXo/eIX+1n5xG/6lGu5+sRv+ufq96m51sCp2k/2K+9X2W/ F361J/7gt3+1N+qxdoD7526I3w+5R8eQi9u/jl8D+o c0O14S0oq3xehrt+fu4V/l/dd5K4d/9cAy0hgHKP55fz/+VZ7/tvc6g2Z+t3+lM+98rnM12q/r1b6i70 7vU75/d4Ep1IrL4f27kzQ1Vtes0eBfSiP93D5Z+wrPCeKpyD0nGmapRt3caiqK++ux/8pTUB25b1430L D+0Jn0hRntNm+30bjc7jWu1Ct22AaiI5K/oJ+op+Zf 15p/UW38UN7PWi41F95xq8d7z84Jt/ZW/uG6sQ1aF9euY1tq0new+c+e8asoG/QG/YB+QD+io5U51B89 by58t3uo/7n8jny5Z7rcY76IUZEtgm/5yCN+leUOfYfeoDfoB/QD+zm2cIa4b/Gr3rEqr+G0txyWXdVM HeuDjvVBx/kuH85caP674rpesZ2v8O/uVuu/HvGrGf girish+/Iz+CIX7nV+FY3usvkCm8Ml5Tj+zfi97V/w0ftf/jkvqYxak92S/uo/c8+av3Ic/3At1WNyTYktK [file] 48552+8rINe15/+JbND280d5waO152bs+qzjk990/+5MOnX3/58+/b2l518/3nrz9+gWb21eWlvt/85s tf/bxDw0K9J/vy0x0mBYpH8sI+/vj9d2+/5 67/ek2yDha/76Gresiv0d264mvvHq/cb63fkA7n84oJQq2/92lLrKra2y1rXy+O/sa125O0m/+3tm09v //ht0ezwR3/+1Ehp28ph780F9Bpsf/QTL774/i4r/x4nzl5hx/N9i858l556+PPvv/y55Nzr243+4Vdf /tzAn048qDyc+vLjx28+v336/fH4N8o93n6yG2++fl 2mJtpb31no4/9za2468hkCM2652xAC/vpTV40p1zZl2N361+Hb+6lc//y3i6G794c9d//yZx+/eRn81d qllrO6erW2+ffP/uWXHz6+ataV28168MPix/n68y/dZ7d237+wg0OpPV+iXzT/mq9Fc2LT0mR9/Obtu6 9/5zHnl1t79J+h39729Ldbf/Hh7V++/J3pw837/uPP /8Y/b49nW+HPf/qP3//ljz/8+9t//19vv/n9H/7w27/85Yff/uEf3n7+2z/9/oc/vIwg/m9///bnP71e hJ/K+Om+E5559j1zLgmJz/4whbJBUE2Cpg9hpp/2X409jSFl2hz+42+Xthtd4WJ834z/P9K3mdjT8s+v f5xAN/tPVa3f/Ndl6Bfh0i63iC5B0rPanM54byZjkj +us5F97S15s8/63MOOyx9q6i5+9w+swuf7x8sqkdC/jFvG7YbnA9Dvr86/SsOWrfnXfcy+9yDakJoI64 ZhQBhbxLxJez1equ/91z++/eW3//BCf0qzS/3a3A04d/RHPqCtLex1+z+u/YDffnr7/Z/+64e//D9/df NR/THm++rj3g/2t+79YP/86bu3f/+fr3v//Z//9OPq e5v3Z1SmQLdFG3/+6T9//y8p46cWcTd+36iWfmvy3c0bcXM/ekT1BacT0Z2rki0OrJ/27U8+/eTz22// 3x/+869fm+e7LaqLy0/00wm8gb/Xq/m3yvdkk7i6mRp/Dr/+7R/ePd/4If3RH789m//7r//7mODTn//8 xy9+hJ5b/dWff/rI6E88A11UHuk29m8+93/+6fe/+/ 1v//HECRJt20099Ox39lck989/+tcmGol//ed/vXrOv3/xGus+f/P2gS/i/J7rkbEM757/+z9+eJO3P/ /Ro6FJye++LJ+76qb8gk5T0Y6ACqh2j04Opvl2XoKcSTU+8+zaPz34aL57029ICA1kfnAVj0B8/bZd7W M0rvyaZYv/HkB0rD9SWY1ig8HtVBQqSpSdLB5tooun JEMtNU9biiq0S8FmiIljSZdZBWZhXe7hrFDrQF9OFUL9URxtUNXxCBBtH2OsbV9uC24uuQAtJgVpAYXF QM9YpbO2LEG5CYM0PLQmYfTfTCQlUK62HJHxUIMRWs2wwsXaCjgZIxAlWZ5fdwr6P6G8oKTmD808sVrk flWwVJ2Gw6GhbMOgZF4AwWYjuYEfGPIpRTHqQ2rgp3 AnOMelZSLPTt4avuQxPcjGOyEhOV4kpqy8Q8S2fLkvszJpLAPDFCmeHbguMO9jcDsgroqiU0KoqSXrAA LqD3UbIHRdn37PZCQqBDrCYiNyVpFkOOW9LUrjIQmoBiJwSZTrXCGuBLAfHJ5ZrEHgNRTjDRBCYLorUm chGCHqaJ9cuFDZm5BaT18VYZDVVO2ESEKWF4BGMiSi QLA0WZQ7AMEpO0GvwhSntKWhIOSECBozWoqsUOFqpP1hcHuhQ6UxZYP8r7OfEG0UK0BcDEGmMMBZZDE2 v9LsWQCmtmtvgcgcIkFePJEcUABrXYZlLJ7Qdz8cqAKjulFyQPPEVAeiAqebOI5csFtvcnfeO5JvcIGh KSA+QeCyMY5jrl9+DnIpHTAzUpx1TKMaEPahTEJoJB XtNVGeB5bpDKGoZbEmMSIfWrWtJG0Bc5WfyHMuFz6pwoNbCbbEqBLfLivvDDLeJJWaYRKwLzIEXIHzIU CvPWHuWOF3OVJjOQYqLIpoPUGqZBI9KQi3DAQkBVXpGG2gUbOpKFSxIwO2KEcbTTPuFFExwaJHDAFyRT E4VcqaYFAqSYJhGBPgROysCEAdFHMgFLYpCQB1LTO2 CCDlJoIwPMPaAJWlQJCcVSFeHBQvxdKWGSIkOPOiJLV9DOGcMICnUYDpQIbxOCLvUZSbHEieNZUiSUNj NP1wGwTxWIOrVKUxUXsiVKWiBJTcgbQRLFHeSORwNIQeANDaVMKwXFDjKRmkZRMzLPBmJTQjPGWiXTWw AM3nLhFpRHHhTSF4ZKXiDKTfCWQrgyNDQQNtVWHcJB v8OBPcCNRbLJXsGBrfNOKbIOKfBWK1EDKhAWOrHS0uXfJxSTZoATH7BiVmPBTpFYNeypZAPXKhFASdUC B4HuSaQHUbMKHwGRomBIPjNXSwRFoqCSWtINZnJV9vUvTrCKQfBDBdMWcoNIQuBJExzlMFUBTqBOPeZB JkPcBhISWgTQIqQUmnGAMjIUE7RmW0PAVzXYIjVT7a ScJjBVGhWFH4LRogXJSxRKPzwwLWCAKhZABrPKehKUVsLTNaWVQeOYupYSIzLJUzMHZ9ZCVtNPDfCK9c EuEaWDRfFUWqOZCbIxA7LqFxOiTAcKLlbYolzqs0BDuhY3n4JRAeQEmqDQ3btbLhNZPxYauqXm6ugDM9 XSJxVdfFEo9Bm5HuefU2zsCpCcT8NLBcUrIpEF4G ID Date Data Source [id number] 07/18/2021 07:16:25 AM EDT [facility] Name Value Range Interpretation Code Description Data Alisson rce(s) Supporting Document(s) Progress Note [facility] DSLYVa1ePvBMBgAh48/YIYrbZJYoe0CbKWxpYRl9OLioXBNpY8UyDJD9aW2jLUX6HDvYXeJtFjJoJOF7 lbm [file] ICAgICAgICAgICAgICAgICAgICAgICAgICAgICAgICAgICAgICAgICAgICAgICAgICAgICAgICAgICAg ICAgICAgICAgICAgICAgICAgICAgICAgDQogICAgIC AgICAgICAgICAgICAgICAgICAgICAgICAgICAgICAgICAgICAgICAgICAgICAgICAgICAgICAgICAgIC AgICAgICAgICAgICAgICAgICAgICAgICAgICAgICAgICAgDQogICAgICAgICAgICAgICAgICAgICAgIC AgICAgICAgICAgICAgICAgICAgICAgICAgICAgICAg ICAgICAgICAgICAgICAgICAgICAgICAgICAgICAgICAgICAgICAgICAgICAgDQogICAgICAgICAgICAg ICAgICAgICAgICAgICAgICAgICAgICAgICAgICAgICAgICAgICAgICAgICAgICAgICAgICAgICAgICAg ICAgICAgICAgICAgICAgICAgICAgICAgICAgDQogIC AgICAgICAgICAgICAgICAgICAgICAgICAgICAgICAgICAgICAgICAgICAgICAgICAgICAgICAgICAgIC AgICAgICAgICAgICAgICAgICAgICAgICAgICAgICAgICAgICAgDQogICAgICAgICAgICAgICAgICAgIC AgICAgICAgICAgICAgICAgICAgICAgICAgICAgICAg ICAgICAgICAgICAgICAgICAgICAgICAgICAgICAgICAgICAgICAgICAgICAgICAgDQogICAgICAgICAg ICAgICAgICAgICAgICAgICAgICAgICAgICAgICAgICAgICAgICAgICAgICAgICAgICAgICAgICAgICAg ICAgICAgICAgICAgICAgICAgICAgICAgICAgICAgDQ ogICAgICAgICAgICAgICAgICAgICAgICAgICAgICAgICAgICAgICAgICAgICAgICAgICAgICAgICAgIC AgICAgICAgICAgICAgICAgICAgICAgICAgICAgICAgICAgICAgICAgDQogICAgICAgICAgICAgICAgIC AgICAgICAgICAgICAgICAgICAgICAgICAgICAgICAg ICAgICAgICAgICAgICAgICAgICAgICAgICAgICAgICAgICAgICAgICAgICAgICAgICAgDQogICAgICAg ICAgICAgICAgICAgICAgICAgICAgICAgICAgICAgICAgICAgICAgICAgICAgICAgICAgICAgICAgICAg ICAgICAgICAgICAgICAgICAgICAgICAgICAgICAgIC ZwZHd1K9bfJJYlNVFmWE7wRZa8Ss6+IRbXIsQnHTB1fkPnxF3BUH5kj9YwDUbsADSfd7FzYWe1ZR9EKE VjCIvzAI8ZBSmtpg7SWLHvKNIqvERCu9mmEnHkITJ4SZZjHjohTS5OOVAhD9flliTiUFIzYKDPYIzqIG GLXO5OMhCtR7ZuwZ63GVZFMv2+DQplbmRvYmoNCjIy XFXhb4InPLl1SI8CZTPmGqawd1KxQaKwLWUBNEfoWE0QIHZ6AECbNXXvAv8GTUIuN774mhUsRF5NTv0N XqYeRC7epx3GRkUvJGAwDlkUPvn3RSyyZT8UsERbESiKto6welIgfpJYz9PkofQhyHUMEL8wfdIuvdAS HBPhoxDqTNnuJJOGNLEprMDyCK8xDr1lLMMxXVC0Ay NnUNVRZU8XNUAdBRXasOCnFZRzHCHOSI2PRFuiJWO8QMGttvLpcJYsJAbaHH6KBJWgcrTzZuPsTNOTGD o+Gw6BEX6xu9YoBOdoZOBaRD1vft4OPPqOLuCmS7A8tOHcZ9I2OMuoPo8GYYEyVRWgOlLfBLSJWWwyYJ 3MFD2oavB3YF0LnTDeIJDyGWQtiJSlAGh4I81wjYCz ZHrqSE0AAOV+Patricia+Eb0DNVBpPYUmRNBtWnEjZGIKSlKgE7BxF8MYn4SnU9GrFO25vSyfazAzQLlxDZ7G KT7mGNIrDKBVTT8MmJOztM2gecDiVfQiJRSULsYgS92baLGfYRTsPMTjQHXyHv3AFCJtU9WncnJwdTcv qbCaVPYrMAHXUL7LQCwepkQmmLAxvRqlAZ16pSuvLJ 6PSy0QJvHeZD8dit7YjOLsHr1TZUWgRJ9NSVYuVZGvZSPgERS7ZJJqFwZzMRfiTVFdZDUgZJZ8ZEIhBI EqGI3LKgUiMUWdUFG5OsWdEPImLUJjvb4MPOTrVUYwRrDuMuVeCOAsXJNtEBpkZKIcRCLzWZN7CEJoYO FaAL6JLcAfCGWqDTR5WVYrPJMxQSNnyv2EWBTfPEQa CxA0TQGeHVXvOAKdZUhuPIGpHYK1BLNiEUKtUABnXA2XSjNdEVCeQFTwIJooSPYvGPLvnl9HXAByNDXg MsXnMyQpLLXvSRQxOWemPJHyXQL0EzCbWYSpBCTeRN3SFaZnUXBgZKS4FKEhYURlPMHklc2RUYNqNSDn EoP9ScAfOMCaHRZoQAlbLEWlZOZ7CaC7ADLzVGHoOK 5VEiHfNAIxYVl8VGHnXMYjMQSbbn4YGMPtAAIdQSwsUrZaHNWiMKDaRMveDHGoFFU1GSl5SUIfGPBoJX 5SXaNiBRBhMSnoKPHlMZHjAXElik6WGEAsCLUsNMX7ZxBwQZAtRRDbHKzqESLePJIaUiY8JQAcVCKvOG 9DMpLaNIBlDXY6PiSwGDJlFZPfre7VWFZwKOGzABy4 IrPxJKNhWSCwDDlqOXJbMXJfEGNsJKKaXMYoZY6EIvCqWCQrOMR2JTLtCNIeHBQhhy8EPVTdONCcSzV6 XsQkSZYqCIQeIXj2iiTtkRReIYr1AV4PV2LsmzDeBhRVEp6Fu916PAQ9QFOfFh1XG4gnMe6cWQZzDVKA Hc3OPXx4QIVlBBC3O8M4KARdURCsOSBhUTFtQUR0Dr JiZTYzNWE+UCe1FuXkDsUyPeWpRJM2XLDiFYT9CPC7LGiiTjKdNhD7OG7mNDDQDx9+DQpzdGFydHhyZW VJEyTzPIbkYAgdSRTRSo9Q ID Date Data Source [id number] 07/18/2021 05:14:02 AM [facility] Name Value Range Interpretation Code Description Data Alisson rce(s) Supporting Document(s) Cardiactroponin T pnl SerPlHS 82 ng/L <22 H [facility] ID Date Data Source [id number] 07/18/2021 05:14:02 AM [facility] Name Value Range Interpretation Code Description Data Alisson rce(s) Supporting Document(s) Bicarbonate [Moles/volume] in Serum 22 mmol/L 22-29 [facility] Chloride [Moles/volume] in Serum or Plasma 101 mmol/L 98-107 [facility] Creatinine [Mass/volume] in Serum or Plasma 0.77 mg/dL 0.70-1.20 [facility] Glucose [Mass/volume] in Serum or Plasma 81 mg/dL 70-140 [facility] Potassium [Moles/volume] in Serum or Plasma 3.5 mmol/L 3.4-5.1 [facility] Hemolyzed Sodium [Moles/volume] in Serum or Plasma 136 mmol/L 136-145 [facility] Urea nitrogen [Mass/volume] in Serum or Plasma 5 mg/dL 6-20 L [facility] Anion gap 3 in Serum or Plasma 13 mmol/L 8-15 [facility] Osmolality of Serum or Plasma by calculation 278 mosm/kg 275-300 [facility] Creatinine/Urea nitrogen [Mass Ratio] in Serum or Plasma 6 [facility] Calcium [Mass/volume] in Serum or Plasma 8.6 mg/dL 8.6-10.0 [facility] Glomerular filtration rate/1.73 sq M pre dicted among non-blacks [Volume Rate/Area] in Serum or Plasma by Creatinine-based formula (MDRD) >6 0 [facility] Glomerular filtration rate/1.73 sq M pre dicted among blacks [Volume Rate/Area] in Serum or Plasma by Creatinine-based formula (MDRD) >60 [facility] ID Date Data Source [id number] 07/18/2021 09:49:21 AM [facility] Name Value Range Interpretation Code Description Data Alisson rce(s) Supporting Document(s) Creatine kinase [Enzymatic activity/volume] in Serum or Plasma 413 U/L 20-200 H [facility] ID Date Data Source [id number] 07/18/2021 02:38:40 AM [facility] Name Value Range Interpretation Code Description Data Alisson rce(s) Supporting Document(s) pH of Venous blood 7.42 7.36-7.41 [facility] Carbon dioxide [Partial pressure] in Venous blood 43 mmHg 40-45 [facility] Oxygen [Partial pressure] in Venous blood 53 mmHg [facility] Base excess standard in Venous blood by calculation 3 mmol/L [facility] Oxygen saturation Calculated from oxygen partial pressure in Venous blood 88 % 60-85 H [facility] Lactate [Moles/volume] in Venous blood 0.9 mmol/L 0.5-2.2 [facility] Bicarbonate [Moles/volume] in Venous blood 29 mmol/L [facility] ID Date Data Source [id number] 07/18/2021 02:58:29 AM [facility] Name Value Range Interpretation Code Description Data Alisson rce(s) Supporting Document(s) Leukocytes [#/volume] in Blood by Automated count 9.6 10*3/uL 4-10 [facility] Erythrocytes [#/volume] in Blood by Automated count 5.58 10*6/uL 4.6- 6.1 [facility] Hemoglobin [Mass/volume] in Blood 14.1 g/dL 13.5-18 [facility] Hematocrit [Volume Fraction] of Blood by Automated count 45.3 % 4 1-53 [facility] Erythrocyte mean corpuscular volume [Entitic volume] by Auto mated count 81.2 fL 80-96 [facility] Erythrocyte mean corpuscular hemoglobin [Entitic mass] by Automated count 25.3 pg 27-33 [facility] Erythrocyte mean corpuscular hemoglobin concentration [Mass/volume] by Automated count 31.2 g/dL 32.0-36.0 [facility] distribution width [Ratio] by Automated count 16.9 % 11.5-14.5 [facility] Platelets [#/volume] in Blood by Automated count 128 10*3/uL 150-400 L [facility] Differential cell count method - Blood [facility] Neutrophils/100 leukocytes in Blood by Automated count 66 % [facility] Lymphocytes/100 leukocytes in Blood by Automated count 23 % [facility] Monocytes/100 leukocytes in Blood by Automated count 11 % [facility] Eosinophils/100 leukocytes in Blood by Automated count 0 % [facility] Basophils/100 leukocytes in Blood by Automated count 0 % [facility] Neutrophils [#/volume] in Blood by Automated count 6.30 10*3/uL 1.8-7 .0 [facility] Lymphocytes [#/volume] in Blood by Automated count 2.25 10*3/uL 1.2-4 .0 [facility] Monocytes [#/volume] in Blood by Automated count 1.04 10*3/uL 0-0.8 H [facility] Eosinophils [#/volume] in Blood by Automated count 0.02 10*3/uL 0-0.5 [facility] Basophils [#/volume] in Blood by Automated count 0.03 10*3/uL 0-0.2 [facility] Nucleated erythrocytes/100 leukocytes [Ratio] in Blood by Automated count 0 /100{WBCs} 0-0 [facility] ID Date Data Source [id number] 07/18/2021 03:17:21 AM [facility] Name Value Range Interpretation Code Description Data Alisson rce(s) Supporting Document(s) Cardiactroponin T pnl SerPlHS 77 ng/L <22 H [facility] Hemolyzed ID Date Data Source [id number] 07/18/2021 03:17:21 AM [facility] Name Value Range Interpretation Code Description Data Alisson rce(s) Supporting Document(s) Albumin [Mass/volume] in Serum or Plasma by Bromocresol green (BCG) dye binding method 3.9 g/dL 3.5-5.2 [facility] Bilirubin.total [Mass/volume] in Serum or Plasma 0.7 mg/dL <1.2 [facility] Calcium [Mass/volume] in Serum or Plasma 8.5 mg/dL 8.6-10.0 L [facility] Chloride [Moles/volume] in Serum or Plasma 102 mmol/L 98-107 [facility] Creatinine [Mass/volume] in Serum or Plasma 0.77 mg/dL 0.70-1.20 [facility] Glucose [Mass/volume] in Serum or Plasma 76 mg/dL 70-140 [facility] Alkaline phosphatase [Enzymatic activity/volume] in Serum or Plasma 95 U/L 40-129 [facility] Potassium [Moles/volume] in Serum or Plasma 6.0 mmol/L 3.4-5.1 H [facility] Hemolyzed Protein [Mass/volume] in Serum or Plasma 7.5 g/dL 6.4-8.3 [facility] Sodium [Moles/volume] in Serum or Plasma 136 mmol/L 136-145 [facility] Aspartate aminotransferase [Enzymatic activity/volume] in Serum or Plasma 64 U/L <40 H [facility] Hemoly[facility] Urea nitrogen [Mass/volume] in Serum or Plasma 5 mg/dL 6-20 L [facility] Osmolality of Serum or Plasma by calculation 278 mosm/kg 275-300 [facility] Creatinine/Urea nitrogen [Mass Ratio] in Serum or Plasma 6 [facility] Bicarbonate [Moles/volume] in Serum 22 mmol/L 22-29 [facility] Alanine aminotransferase [Enzymatic activity/volume] in Seru m or Plasma 17 U/L <41 [facility] Anion gap 3 in Serum or Plasma 12 mmol/L 8-15 [facility] Glomerular filtration rate/1.73 sq M pre dicted among non-blacks [Volume Rate/Area] in Serum or Plasma by Creatinine-based formula (MDRD) >6 0 [facility] Glomerular filtration rate/1.73 sq M pre dicted among blacks [Volume Rate/Area] in Serum or Plasma by Creatinine-based formula (MDRD) >60 [facility] ID Date Data Source [id number] 07/18/2021 03:17:21 AM [facility] Name Value Range Interpretation Code Description Data Alisson rce(s) Supporting Document(s) Magnesium [Mass/volume] in Serum or Plasma 2.3 mg/dL 1.6-2.6 [facility] ID Date Data Source [id number] 07/27/2021 11:05:36 AM [facility] ULTRASOUND - BEDSIDESUNY_Proc_peripheral IV: Exam Information: Exam type: Clinically indicated / billable Indication(s) for Exam: The exam was performed with the following indications:: Failed or difficult IV access, Other indications as noted in the H&P Location: Right Specific site of peripheral line:: Superficial antecubital/forearm vein Complications: None Interpretation: Unsuccessful line insertion Confirmatory study: What confirmatory study was done?: Not applicableElectronically signed by Wolfgang Galeano on Tuesday, July 27, 2021 at 11:05 AM Name Value Range Interpretation Code Description Data Alisson rce(s) Supporting Document(s) ID Date Data Source [id number] 07/18/2021 01:29:21 AM EDT [facility] XR SKULL LIMITED [id number] RESULTInterp reted by:TIANA DurantROCLEOBARDO INFORMATION: Exam: XR Skull Exam date and time: 07/18/2021 12:03 AM Age: 55 years old Clinical indication: Other: Shunt series TECHNIQUE: Imaging protocol: XR of the skull. Views: Less than 4 views. COMPARISON: CR XR SKULL LIMITED [id number] PORTABLE 06/22/2021 11:58 AM FINDINGS: Tubes, catheters and devices: Left ventricular shunt as visualized is intact. Sinuses: Well aerated. No opacification. Bones/joints: Right-sided craniectomy. Soft tissues: Unremarkable. IMPRESSION: Visualized portion of the shunt is intact. THIS DO CUMENT HAS BEEN ELECTRONICALLY SIGNED BY MALKA TORRES MDThis document has been electronically signed by Malka Torres MD on 07/18/2021 1:29 AM Name Value Range Interpretation Code Description Data Alisson rce(s) Supporting Document(s) ID Date Data Source [id number] 07/18/2021 01:29:01 AM EDT [facility] XR CHEST FRONTAL AND LATERAL [id number] RESULTInterpreted by:TIANA DurantROCEDURE INFORMATION: Exam: XR Chest Exam date and time: 07/18/2021 12:03 AM Age: 55 years old Clinical indication: Other: Shunt series TECHNIQUE: Imaging protocol: XR of the chest. Views: 2 views. COMPARISON: CR XR CHEST FRONTAL AND LATERAL [id number] PORTABLE 06/22/2021 11:58 AM FINDINGS: Lungs: Again seen is volume loss with scarring in the apices and retraction of the leonardo superiorly with calcified lymph nodes. No definite new lung opacity. Pleural spaces: Pleural thickening again seen. Heart/Mediastinum: Heart normal in size.Bones/joints: No acute bony abnormality.Soft tissues: Shunt tube seen in the left chest wall is intact. IMPRESSION: 1. Visualized portion of the shunt in the chest is intact. 2. Other findings as described. THIS DOCUMENT HAS BEEN ELECTRONICALLY SIGNED BY MALKA TORRES MDThis document has been electronically signed by Malka Torres MD on 07/18/2021 1:28 AM Name Value Range Interpretation Code Description Data Alisson rce(s) Supporting Document(s) ID Date Data Source [id number] 07/18/2021 01:28:36 AM EDT [facility] XR ABDOMEN AP SUPINE AND LATERAL VIEW [id number] RESULTInterpreted by:Malka Torres [facility] IN[facility]: Exam: XR Abdomen Exam date and time: 07/18/2021 12:03 AM Age: 55 years old Clinical indication: Other: Shunt series TECHNIQUE: Imaging protocol: XR of the abdomen. Views: 2 Views. Upright and supine views. COMPARISON: CR XR ABDOMEN AP SUPINE AND LATERAL VIEW [id number] PORTABLE 06/22/2021 11:58 AM FINDINGS: Gastrointestinal tract: Gas and stool seen throughout the colon without obstruction. Intraperitoneal space: Visualized portion of the shunt in the abdomen is intact. It terminates in the pelvis on the current exam. Bones/joints: No acute bony abnormality. IMPRESSION: Visualized portion of the shunt is intact. THIS DOCUMENT HAS BEEN ELECTRONICALLY SIGNED BY MALKA TORRES MDThis document has been electronically signed by Malka Torres MD on 07/18/2021 1:28 AM Name Value Range Interpretation Code Description Data Alisson rce(s) Supporting Document(s) ID Date Data Source [id number] 07/17/2021 11:08:00 AM EDT [facility] Name Value Range Interpretation Code Description Data Alisson rce(s) Supporting Document(s) SARS coronavirus 2 RNA [Presence] in Res piratory specimen by ARNULFO with probe detection NEGATIVE [facility] This lab was ordered by [facility] a nd reported by [facility]. ID Date Data Source [id number] 06/25/2021 05:21:54 PM EDT [facility] Name Value Range Interpretation Code Description Data Alisson rce(s) Supporting Document(s) [facility] THIIPh3yYfSKNfPa22/HBCxbLVZpc9EfEJzaPVv5YCkmUFDfO7AqXIC7gU1vQTF2XEzQZnXjNhCfZGOk lbm [file] YKV9WNo6NJv1QnRiLbYsPX0PZn1KTmT7VYG2sHCmXb2HSdLlRgKMNsYvIK0MPQk= ID Date Data Source [id number] 06/25/2021 04:56:11 PM EDT [facility] Name Value Range Interpretation Code Description Data Alisson e(s) Supporting Document(s) Discharge Summary [facility] MVXYTi3bItEXLwZu77/KYRoyBCEfg3MdTMhpXKo3EEnoONYkS1TbAQZ3oW7yUXO0GCxJQtGmLbBvEPVz lbm [file] cxNzIwYmY+KN4uWFl+Qq3Wp3ByqqU2iwSnBIf5BWOwLw6LEGHWD7ZSVa== ID Date Data Source [id number] 06/25/2021 03:33:47 PM EDT [facility] Name Value Range Interpretation Code Description Data Alisson e(s) Supporting Document(s) Bicarbonate [Moles/volume] in Serum 23 mmol/L 22-29 [facility] Chloride [Moles/volume] in Serum or Plasma 107 mmol/L 98-107 [facility] Creatinine [Mass/volume] in Serum or Plasma 0.86 mg/dL 0.70-1.20 [facility] Glucose [Mass/volume] in Serum or Plasma 90 mg/dL 70-140 [facility] Potassium [Moles/volume] in Serum or Plasma 3.7 mmol/L 3.4-5.1 [facility] Sodium [Moles/volume] in Serum or Plasma 143 mmol/L 136-145 [facility] Urea nitrogen [Mass/volume] in Serum or Plasma 8 mg/dL 6-20 [facility] Anion gap 3 in Serum or Plasma 13 mmol/L 8-15 [facility] Osmolality of Serum or Plasma by calculation 294 mosm/kg 275-300 [facility] Creatinine/Urea nitrogen [Mass Ratio] in Serum or Plasma 9 [facility] Calcium [Mass/volume] in Serum or Plasma 9.0 mg/dL 8.6-10.0 [facility] Glomerular filtration rate/1.73 sq M pre dicted among non-blacks [Volume Rate/Area] in Serum or Plasma by Creatinine-based formula (MDRD) >6 0 [facility] Glomerular filtration rate/1.73 sq M pre dicted among blacks [Volume Rate/Area] in Serum or Plasma by Creatinine-based formula (MDRD) >60 [facility] ID Date Data Source [id number] 06/25/2021 01:12:59 PM EDT [facility] Name Value Range Interpretation Code Description Data Alisson rce(s) Supporting Document(s) Consultation [facility] YKNQIk0zAlBAZhDo48/NXAetWHYvg6QhZVloSFo7JYzgTKRgY0YpNLE5wF1hBED7ESuCPjSuJsTeTDJj lbm [file] AgICAgICAgICAgICAgICAgICAgICAgICAgICAgICAgICAgICAgICAgICAgICAgICAgICAgICAgICAgIC AgICAgICAgICAgICAgICAgICAgICAgICAgDQogICAg ICAgICAgICAgICAgICAgICAgICAgICAgICAgICAgICAgICAgICAgICAgICAgICAgICAgICAgICAgICAg ICAgICAgICAgICAgICAgICAgICAgICAgICAgICAgICAgICAgDQogICAgICAgICAgICAgICAgICAgICAg ICAgICAgICAgICAgICAgICAgICAgICAgICAgICAgIC AgICAgICAgICAgICAgICAgICAgICAgICAgICAgICAgICAgICAgICAgICAgICAgDQogICAgICAgICAgIC AgICAgICAgICAgICAgICAgICAgICAgICAgICAgICAgICAgICAgICAgICAgICAgICAgICAgICAgICAgIC AgICAgICAgICAgICAgICAgICAgICAgICAgICAgDQog ICAgICAgICAgICAgICAgICAgICAgICAgICAgICAgICAgICAgICAgICAgICAgICAgICAgICAgICAgICAg ICAgICAgICAgICAgICAgICAgICAgICAgICAgICAgICAgICAgICAgDQogICAgICAgICAgICAgICAgICAg ICAgICAgICAgICAgICAgICAgICAgICAgICAgICAgIC AgICAgICAgICAgICAgICAgICAgICAgICAgICAgICAgICAgICAgICAgICAgICAgICAgDQogICAgICAgIC AgICAgICAgICAgICAgICAgICAgICAgICAgICAgICAgICAgICAgICAgICAgICAgICAgICAgICAgICAgIC AgICAgICAgICAgICAgICAgICAgICAgICAgICAgICAg DQogICAgICAgICAgICAgICAgICAgICAgICAgICAgICAgICAgICAgICAgICAgICAgICAgICAgICAgICAg ICAgICAgICAgICAgICAgICAgICAgICAgICAgICAgICAgICAgICAgICAgDQogICAgICAgICAgICAgICAg ICAgICAgICAgICAgICAgICAgICAgICAgICAgICAgIC AgICAgICAgICAgICAgICAgICAgICAgICAgICAgICAgICAgICAgICAgICAgICAgICAgICAgDQogICAgIC AgICAgICAgICAgICAgICAgICAgICAgICAgICAgICAgICAgICAgICAgICAgICAgICAgICAgICAgICAgIC AgICAgICAgICAgICAgICAgICAgICAgICAgICAgICAg CXYoLOa7V4fiDKKeAQOuZA9lNIw0Zp5+PCaOTpErKCU8bhQfrO3CAR0sv6SgFVggVTUte3YtUDe0IC1V UZVkIOrzAW9SNKoexx0ELWUpKIYdgIOFh4xkTyHmKIM6XGFdPelbCJ0WUWEuO5axtaZoSFZmMXDOYFxv FJUWHC4GQeJlU9TvcD46QGWKEd0+DQplbmRvYmoNCj M1SVBov3QjIWp0ZF9TZXMeUpgqp8HzOVaoXXVVMSnrQJ7VYNG0QIJ4TSCpGl9BWTEqK188edSvOL8ZSh 2AUvNdXD1qyn6DPLhxXZPfJnzOPuq1ZGrjNP9GeXWtXZfFs60xaPf6ukElzOGDoGd3stS4JILyH5LaH0 i9GWQIPQBCGHQ8HCwgRhRePiGnURAkIAenPAYXJVyG EpUaY8Bzp7RxLgX6FFWyKbXiYYbiHUYbJnO9QF68dUtnMN9TRRRcWWNuZG46TKV1UEYgCh2RYy5IRoGm DC9dye5WQHffNISxXksCXpd3LZctID2HuBMgS4BzfDSic9yWSdWyZ1UQACB1TRBgBf4VICBfNzCkGBRl JDggVM3uBLMbMVZPzMlcqhH1DH8WBF1vbjFiCP5ZOi CaXg0sZn6NJtHoF1FiO3OdELHtQUWAZHioRT7RZLffJJ0nNC1Vk7SSuEOloG3dsp6YJOGgKDOtZkmqdu 8QHyyqV3F0tPulQIXxVEZwQENIZXujHX5NXJMsDUP2XQAiIBTlAJJXCkWcM67tFU8KU1Vzc74uEvN0PK VsKxImNTbnNH13gSensdInxFUiuQabIK5AUb8+DQpl muUbFjoEZzzeZCKQHrRbHBeNWvTeHLTvKYIgDSYxUiL4BlKuSl5PPQYrQRWlMJWaTxFhCASaFJAbJJzx FPLpAJK2HTRhZNXuXSDjZY5SWxPsNZOiBDo2OvUyRZIrYGNagx7ANLAoABMrTII1AuVySMOnVQXmGKbb EGUwRTIqDJSwMGLdEPRdAX7FFsBkCEXrIEP7WrHeNC LmASEjnq1XBCDyYOCaXCRuWPJjUJAbSPZpITnwHCEeWYT2NVS7XLAxGHZsPK9RPcPbGRAaXTIgObQzKC NpYCWtvo7LFJJtJXAhGLH9IBNaNWMtXSIiQOcyQEZnMNN3EaYiACXmYJKvRS5NHuRzETLbYHH4IZgjFS ScKWBidi4HRVKiMYKmRqmjISBgMGZbQGIoPCtlXEXw VLG5GRl8XTFiWPNuXF0NFdXvHTKbXKm4BYVmLKBwDGEjsf6ILPLdCCZcJRfzBZJdYZWlOMFnYCxdLHIe FDB3MKJ1RQHfNYXpEW4HKwRlTPXaFKdkRDXiMURwYEAisg1EzRMqfSbroo8OWShCSc3JuZlnHZN7LPkw Vr4unIXhDKMqDFAMFm4IjkQzRERkFBCHTQcjRUMsYS V4GFR7RFIzZBBcCXd1NoAkF4H1Abm4BkkmCup2BBJ3PmV4HUKoXzmzLAZjS5S4AKk4JXRsAnPqPYf3C2 WlAgM7RSj+HJ7fWNi+Of7Og3IjosH5aaDyPBs7NRUkEDnrVALCQq0M ID Date Data Source [id number] 06/25/2021 11:16:19 AM EDT [facility] Name Value Range Interpretation Code Description Data Alisson rce(s) Supporting Document(s) Consultation [facility] NGDTYj1bTyXLZaHr23/DUDhtXGCsq4MeGZghIMi0VRksNTZbD9MmGPV9aG5aQIB7RZcORnNiQkBpVYTp lbm [file] A7VARxPXOuC0GvByA3Xqw2MEH+ZK8dXSw+Fx4Cp8InuoV5ldMrSObgLUT5JL3PQQNFX5QJMu== ID Date Data Source [id number] 06/25/2021 04:43:56 AM EDT [facility] Name Value Range Interpretation Code Description Data Alisson e(s) Supporting Document(s) Leukocytes [#/volume] in Blood by Automated count 8.5 10*3/uL 4-10 [facility] Erythrocytes [#/volume] in Blood by Automated count 5.66 10*6/uL 4.6- 6.1 [facility] Hemoglobin [Mass/volume] in Blood 14.5 g/dL 13.5-18 [facility] Hematocrit [Volume Fraction] of Blood by Automated count 45.2 % 4 1-53 [facility] Erythrocyte mean corpuscular volume [Entitic volume] by Auto mated count 79.8 fL 80-96 L [facility] Erythrocyte mean corpuscular hemoglobin [Entitic mass] by Automated count 25.6 pg 27-33 L [facility] Erythrocyte mean corpuscular hemoglobin concentration [Mass/volume] by Automated count 32.0 g/dL 32.0-[facility] distribution width [Ratio] by Automated count 15.5 % 11.5-14.5 H [facility] Platelets [#/volume] in Blood by Automated count 101 10*3/uL 150-400 L [facility] ID Date Data Source [id number] 06/25/2021 05:32:23 AM EDT [facility] Name Value Range Interpretation Code Description Data Alisson rce(s) Supporting Document(s) Bicarbonate [Moles/volume] in Serum 23 mmol/L 22-29 [facility] Chloride [Moles/volume] in Serum or Plasma 100 mmol/L 98-107 [facility] Confirmed Creatinine [Mass/volume] in Serum or Plasma 1.01 mg/dL 0.70-1.20 [facility] Glucose [Mass/volume] in Serum or Plasma 83 mg/dL 70-140 [facility] Potassium [Moles/volume] in Serum or Plasma 2.9 mmol/L 3.4-5.1 [facility] Results called to and read back by DREW KABA RN ON 5A AT [phone] BY [id number] CONFIRMED Sodium [Moles/volume] in Serum or Plasma 137 mmol/L 136-145 [facility] Confirmed Urea nitrogen [Mass/volume] in Serum or Plasma 6 mg/dL 6-20 [facility] Anion gap 3 in Serum or Plasma 15 mmol/L 8-15 [facility] Confirmed Osmolality of Serum or Plasma by calculation 281 mosm/kg 275-300 [facility] Confirmed Creatinine/Urea nitrogen [Mass Ratio] in Serum or Plasma 6 [facility] Calcium [Mass/volume] in Serum or Plasma 9.1 mg/dL 8.6-10.0 [facility] Glomerular filtration rate/1.73 sq M pre dicted among non-blacks [Volume Rate/Area] in Serum or Plasma by Creatinine-based formula (MDRD) 81 mL/min/1.73m2 >60 [facility] Glomerular filtration rate/1.73 sq M pre dicted among blacks [Volume Rate/Area] in Serum or Plasma by Creatinine-based formula (MDRD) >60 [facility] ID Date Data Source [id number] 06/24/2021 03:45:04 PM EDT [facility] Name Value Range Interpretation Code Description Data Alisson rce(s) Supporting Document(s) Consultation [facility] LKUCAy6lUvZXGjUn04/YAWxxYASks5PmJSvaUJs2DLlxIMTjL7ZkVZT3sR8wRZZ4EAqPMsXrGtUlBEOy lbm [file] DhOAdlYrD4UQ3OUWJMT4DSOc== ID Date Data Source [id number] 06/24/2021 01:41:22 PM EDT [facility] Name Value Range Interpretation Code Description Data Alisson rce(s) Supporting Document(s) ED Provider Note [facility] EKIXXg8bNvRVJiSy27/CSRafZTTmx0MyRCfcTMu6JQtvBBKcF2UsCUQ8hW2zBSC3GDdGUlTzHbBcDHNa lbm [file] 0fRGTMNy3+GYtomZMsiWeoUUBGJkU8GcF5FUowYWXHNt7T ID Date Data Source [id number] 06/24/2021 10:46:49 AM EDT [facility] Name Value Range Interpretation Code Description Data Alisson rce(s) Supporting Document(s) Bicarbonate [Moles/volume] in Serum 17 mmol/L 22-29 L [facility] Chloride [Moles/volume] in Serum or Plasma 107 mmol/L 98-107 [facility] Creatinine [Mass/volume] in Serum or Plasma 1.23 mg/dL 0.70-1.20 H [facility] Glucose [Mass/volume] in Serum or Plasma 111 mg/dL 70-140 [facility] Potassium [Moles/volume] in Serum or Plasma 3.9 mmol/L 3.4-5.1 [facility] Hemolyzed Sodium [Moles/volume] in Serum or Plasma 140 mmol/L 136-145 [facility] Urea nitrogen [Mass/volume] in Serum or Plasma 6 mg/dL 6-20 [facility] Anion gap 3 in Serum or Plasma 16 mmol/L 8-15 H [facility] Osmolality of Serum or Plasma by calculation 288 mosm/kg 275-300 [facility] Creatinine/Urea nitrogen [Mass Ratio] in Serum or Plasma 5 [facility] Calcium [Mass/volume] in Serum or Plasma 8.4 mg/dL 8.6-10.0 L [facility] Glomerular filtration rate/1.73 sq M pre dicted among non-blacks [Volume Rate/Area] in Serum or Plasma by Creatinine-based formula (MDRD) 64 mL/min/1.73m2 >60 [facility] Glomerular filtration rate/1.73 sq M pre dicted among blacks [Volume Rate/Area] in Serum or Plasma by Creatinine-based formula (MDRD) 74 mL/min/1.73m2 >60 [facility] ID Date Data Source [id number] 06/24/2021 06:02:46 AM EDT [facility] Name Value Range Interpretation Code Description Data Alisson e(s) Supporting Document(s) Leukocytes [#/volume] in Blood by Automated count 9.8 10*3/uL 4-10 [facility] Erythrocytes [#/volume] in Blood by Automated count 5.25 10*6/uL 4.6- 6.1 [facility] Hemoglobin [Mass/volume] in Blood 13.4 g/dL 13.5-18 L [facility] Hematocrit [Volume Fraction] of Blood by Automated count 42.2 % 4 1-53 [facility] Erythrocyte mean corpuscular volume [Entitic volume] by Auto mated count 80.4 fL 80-96 [facility] Erythrocyte mean corpuscular hemoglobin [Entitic mass] by Automated count 25.5 pg 27-33 L [facility] Erythrocyte mean corpuscular hemoglobin concentration [Mass/volume] by Automated count 31.7 g/dL 32.0-36.0 L [facility] Erythrocyte distribution width [Ratio] by Automated count 16.1 % 11.5-14.5 H [facility] Platelets [#/volume] in Blood by Automated count 104 10*3/uL 150-400 [facility] ID Date Data Source [id number] 06/23/2021 02:40:01 PM EDT [facility] Name Value Range Interpretation Code Description Data Alisson rce(s) Supporting Document(s) History and Physical [facility] LTUNBv6hZxQAKcKk59/PVBgeYDLjc8FhPTzwPKa5VJdkAJOmU8RbYNT1pF7mCHP8KCfSDwBnSbGeONXz lbm [file] AgICAgICAgICAgICAgICAgICAgICAgICAgICAgICAgICAgICAgICAgICAgICANCiAgICAgICAgICAgIC AgICAgICAgICAgICAgICAgICAgICAgICAgICAgICAg ICAgICAgICAgICAgICAgICAgICAgICAgICAgICAgICAgICAgICAgICAgICAgICAgICAgICAgICANCiAg ICAgICAgICAgICAgICAgICAgICAgICAgICAgICAgICAgICAgICAgICAgICAgICAgICAgICAgICAgICAg ICAgICAgICAgICAgICAgICAgICAgICAgICAgICAgIC AgICAgICANCiAgICAgICAgICAgICAgICAgICAgICAgICAgICAgICAgICAgICAgICAgICAgICAgICAgIC AgICAgICAgICAgICAgICAgICAgICAgICAgICAgICAgICAgICAgICAgICAgICAgICANCiAgICAgICAgIC AgICAgICAgICAgICAgICAgICAgICAgICAgICAgICAg ICAgICAgICAgICAgICAgICAgICAgICAgICAgICAgICAgICAgICAgICAgICAgICAgICAgICAgICAgICAN CiAgICAgICAgICAgICAgICAgICAgICAgICAgICAgICAgICAgICAgICAgICAgICAgICAgICAgICAgICAg ICAgICAgICAgICAgICAgICAgICAgICAgICAgICAgIC AgICAgICAgICANCiAgICAgICAgICAgICAgICAgICAgICAgICAgICAgICAgICAgICAgICAgICAgICAgIC AgICAgICAgICAgICAgICAgICAgICAgICAgICAgICAgICAgICAgICAgICAgICAgICAgICANCiAgICAgIC AgICAgICAgICAgICAgICAgICAgICAgICAgICAgICAg ICAgICAgICAgICAgICAgICAgICAgICAgICAgICAgICAgICAgICAgICAgICAgICAgICAgICAgICAgICAg ICANCiAgICAgICAgICAgICAgICAgICAgICAgICAgICAgICAgICAgICAgICAgICAgICAgICAgICAgICAg ICAgICAgICAgICAgICAgICAgICAgICAgICAgICAgIC AgICAgICAgICAgICANCiAgICAgICAgICAgICAgICAgICAgICAgICAgICAgICAgICAgICAgICAgICAgIC AgICAgICAgICAgICAgICAgICAgICAgICAgICAgICAgICAgICAgICAgICAgICAgICAgICAgICANCjw/eH JmH1ohxIYpuaB6A0waNu8BKw7FUM0nb2LwVUEzGTuz qqNfRmuHAxOlERWoNmnGQlv8GYgzBV8IfWWvE2ZoL8XuMUpoCG3ENHQfDGCgsAMoHCPiZNXeBvU0QHVg DQgfOO2DwQUtRLadPHLuYLSeZcRlLGXyWZHiKOVpPKYbJNFAOSBiFKReRyLdNDWaMJNgTKylELPXYL6B YfOnB5BlaI86JUjNSp2+DQplbmRvYmoNCjQzIDAgb2 GvJVx6JI2MTZQfTpqlh4YgQRRbBQZOUVpwJF6QPXF8UWC4MANwJf0RKQFkN631ahQbEO1OXg0HRyRtAG 3gop9ZUAKsGVYtLhyMUpn6JDbgGB6JaJQjCMrMWnJkCjjhGMMbxiiaRLSUWXUpqObnEFPqGLNtNN2rOW 8nELSsUCQqNbVrAZMVNQ2UFULdARMznIMbEQXnQZTC YK0XVUgrQSQ5UWJgtjHzdNQtRMmaDX7CGYFsaeAcULGdOSUXKAn+Wl7UXV1ul7LzBVu5BFSuEX8san2N KVxSDlOfT5M3dEZcR4B5AUmoPi8KBGInATWvXTNwSCDHINamSQ1KVD5npnE9KL2KyZJvGRZtUPMolCGh YIc7S27xnNKsJDlsLP0AUZL+Patricia+Jr9APSMcJTAnAN YoTfHsBTTNCiZoJ3QcV6GCq1TkJ3FrBC47wOpradWnOLnhTN2VCR9iDDCcNUUYUE6VrQAdaV6wddJ3Lm OgXYHAXwHhZ22ifAUmUFUeLFHyKMNgEj5LXRAmP8LlsxNnsCgwybCnYOKqNETNZC9UCOxfyxZikWOgfD qmNQ33lBmrIY9LSc0OBdJoIE6ulz0CmPYdLf9QXIH0 Zk9JVRWwUUHuXGElFGV6BJQwQvKdILtaHJLkIZIyRDB2DZAjPVJjYK4JOyDwYVFxCLDnXXveLMHoYPCs wj1PNYQaDGC0Jit3EiCwUCTkJLQcWZqoZHEoKISjGJW1BRZpIOIdBV1SXlXqRUXwQCBkVQveKQIyCJXh sn0CLMSpEHUyOAY1HIMnJEHdSRCoPDasPVReQWE6LU S0SJRtSELgSO4BPeOvAEYhILtwHMiuACLrXIMoio1GZZUfFNQyYIWlSgUwYCSgJERpZJnjGRVzKQGcAT B4NOTxTVBlWT3BVnPiGEUhITY3KeSbDVQwHYYwll0KBGIvDKKmDWC7AzIrTZQoWBZwWZvoQIVlMMN1Hi B1GGXcGWXfQO2PTiRoBSUaULp9TiHdXPWlAGLtsv1I WYTbAFWeMvS6RjKfLIIdUYKrTJnbDHAnXWWkZkpoIVFaFSUbVD6ADcGxLLZdPeZ3ZDIeUQTiBWCpgu1K LYRlOKPwRUmkZSSbEONhVBYwLAjiBFNxMBR7Rws7FMRsBDReKI3TOhQqCJDqUqD1ZpOyIVTiZKVryk8K ZPFpROToQlX4ZCSyVATuLLAmXQjoFKNhSPQ1MPI3GR JcRLWeBP2IVeWeJOGbOsnrExSvLKAdLHUdzu4XHENlWFSmOdHpCIAkISBiZUTpTGtuEKFjYFL2KIW1BZ EgDWCjMZ9NJfLcQABxItt5VwqlFJSmDKApra3RBSHhSQJfQNo2SyApTVNpCFEoDFagDXGeBZQ2YZI2AF LbFLPfQQ4UDyCnVDDyPnCrQXWwEAQnSUIbxq1DLHGc ZCItOIU1OoQbAYUxSDBsPKldGQImKVDrBJQ0EEKpZMPsPH0JClHxUGHrWeEoTzGwEYNdXGWnrk3DLKPt FVKeZQK2HSJxTYFbSBIeIEmcOWOjQIPfSYW2PODkQDWaJH8LLuUcQPQtBVJvPaZgNYZeGONgcq0RCMLu DRU5OfI5NrMsVPLjTVSlENvvXEBsZIZuFyClBOVpRJ ClAD7DMqUzQMXlOGO3ENwpBJNvPVApvn1WPJBzPNW0RNcmOJIzUVDsIEFeCXeeZJEiCUI7DSn4VTFiBA XuFN0YYnDaKVNmNHPoQsjyVNHcXBFdxs6LPLDjMMM9MOQjRhBwTRMkKFSqKWrjWCQwAXQ9FGSdBOHwMQ NoEV6PSzVzHAOxTTnzTEHjDNGzOCHmuc7JEPFrOQA3 QqYiAYPjLGTiTFNpBFx4fgIiuSMxJXd1UM8RE9FmhnRiKGAXQz4Wm030KPH8UGVaEj3CF7tkBf8nZDRp FVVEAt7HYDt5Awx3RrK5HLG7V9W0C3U9DVAhKvUiTUQqC4KaJXPgNvs+KJjwNbYfRTYgEDN5Cji2UsRg E9UeLaBwRYRfPeH8S6LoQy3hLWLTYs7+XPicyVBzrLeqJZCFJzT1XUErTRptOZKOJq8E ID Date Data Source [id number] 06/23/2021 09:10:32 AM EDT [facility] Name Value Range Interpretation Code Description Data Alisson rce(s) Supporting Document(s) Leukocytes [#/volume] in Blood by Automated count 9.7 10*3/uL 4-10 [facility] Erythrocytes [#/volume] in Blood by Automated count 5.83 10*6/uL 4.6- 6.1 [facility] Hemoglobin [Mass/volume] in Blood 14.8 g/dL 13.5-18 [facility] Hematocrit [Volume Fraction] of Blood by Automated count 46.7 % 4 1-53 [facility] Erythrocyte mean corpuscular volume [Entitic volume] by Auto mated count 80.1 fL 80-96 [facility] Erythrocyte mean corpuscular hemoglobin [Entitic mass] by Automated count 25.3 pg 27-33 L [facility] Erythrocyte mean corpuscular hemoglobin concentration [Mass/volume] by Automated count 31.6 g/dL 32.0-36.0 [facility] width [Ratio] by Automated count 15.9 % 11.5-14.5 H [facility] Platelets [#/volume] in Blood by Automated count 118 10*3/uL 150-400 L [facility] ID Date Data Source [id number] 06/23/2021 11:44:12 AM EDT [facility] Name Value Range Interpretation Code Description Data Alisson rce(s) Supporting Document(s) Bicarbonate [Moles/volume] in Serum 21 mmol/L 22-29 L [facility] Chloride [Moles/volume] in Serum or Plasma 113 mmol/L 98-107 H [facility] Creatinine [Mass/volume] in Serum or Plasma 1.19 mg/dL 0.70-1.20 [facility] Glucose [Mass/volume] in Serum or Plasma 143 mg/dL 70-140 H [facility] Potassium [Moles/volume] in Serum or Plasma 3.9 mmol/L 3.4-5.1 [facility] Sodium [Moles/volume] in Serum or Plasma 146 mmol/L 136-145 H [facility] Urea nitrogen [Mass/volume] in Serum or Plasma 6 mg/dL 6-20 [facility] Anion gap 3 in Serum or Plasma 12 mmol/L 8-15 [facility] Osmolality of Serum or Plasma by calculation 302 mosm/kg 275-300 H [facility] Creatinine/Urea nitrogen [Mass Ratio] in Serum or Plasma 5 [facility] Calcium [Mass/volume] in Serum or Plasma 8.4 mg/dL 8.6-10.0 [facility] Glomerular filtration rate/1.73 sq M pre dicted among non-blacks [Volume Rate/Area] in Serum or Plasma by Creatinine-based formula (MDRD) 66 mL/min/1.73m2 >60 [facility] Glomerular filtration rate/1.73 sq M pre dicted among blacks [Volume Rate/Area] in Serum or Plasma by Creatinine-based formula (MDRD) 77 mL/min/1.73m2 >60 [facility] ID Date Data Source [id number] 06/22/2021 11:31:51 PM EDT [facility] XR SKULL LIMITED [id number] RESULTInterp reted by:TIANA KarimiROCEDURE INFORMATION: Exam: XR Skull Exam date and time: 06/22/2021 11:58 AM Age: 55 years old Clinical indication: Other: Shunt series TECHNIQUE: Imaging protocol: XR of the skull. Views: Less than 4 views. COMPARISON: CT HEAD WITHOUT CONTRAST [id number] 05/10/2021 12:49 AM FINDINGS: Tubes, catheters and devices: Left ventriculostomy catheter access with tunneled 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 shunt tubing in the left scalp and neck soft tissues without evidence of obstruction. Partially visualized oral endotracheal and gastric tubes. Sinuses: Well aerated. No opacification. Bones/joints: Large open craniectomy defect right parietal region. Soft tissues: See above. IMPRESSION: Left ventriculostomy catheter access with tunneled 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 shunt tubing in the left scalp and neck soft tissues without evidence of obstruction. THIS DOCUMENT HAS BEEN ELECTRONICALLY SIGNED BY MARJORIE IRELAND MDThis document has been electronically signed by Marjorie Ireland MD on 06/22/2021 11:31 PM Name Value Range Interpretation Code Description Data Alisson rce(s) Supporting Document(s) ID Date Data Source [id number] 06/22/2021 10:28:59 PM EDT [facility] Name Value Range Interpretation Code Description Data Alisson rce(s) Supporting Document(s) Levetiracetam [Mass/volume] in Serum or Plasma 13 ug/mL 12-46 [facility] ID Date Data Source [id number] 06/22/2021 10:23:00 PM EDT [facility] Name Value Range Interpretation Code Description Data Alisson rce(s) Supporting Document(s) Color of Urine [facility] Clarity of Urine [facility] Specific gravity of Urine by Refractometry automated 1.010 1.003 -1.030 [facility] pH of Urine by Automated test strip 5.0 5.0-8.0 [facility] Protein [Mass/volume] in Urine by Automated test strip Neg [facility] Glucose [Mass/volume] in Urine by Automated test strip Neg [facility] Ketones [Mass/volume] in Urine by Automated test strip 5 mg/dL Neg [facility] Bilirubin.total [Presence] in Urine by Automated test strip Negative [facility] Hemoglobin [Presence] in Urine by Automated test strip Neg ative A [facility] Leukocyte esterase [Presence] in Urine by Automated test strip Negative [facility] Nitrite [Presence] in Urine by Automated test strip Negati ve [facility] Leukocytes [#/area] in Urine sediment by Automated count 1 /HPF 0 -5 [facility] Erythrocytes [#/area] in Urine sediment by Automated count 0-3 [facility] Bacteria [#/area] in Urine sediment by Automated count Non e [facility] Mucus [#/area] in Urine sediment by Microscopy low power field None [facility] Granular casts [#/area] in Urine sediment by Microscopy low power field 4 /LPF None [facility] Sodium urate crystals [#/area] in Urine sediment by Mi croscopy high power field None [facility] ID Date Data Source [id number] 06/22/2021 11:19:28 PM EDT [facility] Name Value Range Interpretation Code Description Data Alisson rce(s) Supporting Document(s) Amphetamine [Presence] in Urine by Screen method Negative [facility] Benzodiazepines [Presence] in Urine by Screen method Negat [facility] (NOTE)Positive results are presumptive a nd unconfirmed;confirmatorytesting can be ordered at [facility] at [phone] [facility] at [phone] within 5 days of collection. Cannabinoids [Presence] in Urine by Screen method Negative [facility] Benzoylecgonine [Presence] in Urine by Screen method Negat [facility] Methadone [Presence] in Urine by Screen method Negative [facility] Opiates [Presence] in Urine by Screen method Negative [facility] Oxycodone [Presence] in Urine by Screen method Negative [facility] Fentanyl+Norfentanyl [Presence] in Urine by Screen method Negative [facility] [facility] (NOTE[facility]Positive results are presumptive a nd unconfirmed;confirmatorytesting can be ordered at the [facility] at [phone] [facility] at [phone] within 5 days of collection. Service comment [facility] Results below the indicated cutoff (ng/m L), are reported as"Negative." Note: for medical purposes only; not valid for legalor employment testing. ID Date Data Source [id number] 06/22/2021 07:20:28 PM [facility] Value Range Interpretation Code Description Data Alisson rce(s) Supporting Document(s) Leukocytes [#/volume] in Blood by Automated count 9.1 10*3/uL 4-10 [facility] Erythrocytes [#/volume] in Blood by Automated count 5.39 10*6/uL 4.6- 6.1 [facility] Hemoglobin [Mass/volume] in Blood 13.9 g/dL 13.5-18 [facility] Hematocrit [Volume Fraction] of Blood by Automated count 43.5 % 4 1-53 [facility] Erythrocyte mean corpuscular volume [Entitic volume] by Auto mated count 80.7 fL 80-96 [facility] Erythrocyte mean corpuscular hemoglobin [Entitic mass] by Automated count 25.8 pg 27-33 L [facility] Erythrocyte mean corpuscular hemoglobin concentration [Mass/volume] by Automated count 32.0 g/dL 32.0-[facility].0 [facility] distribution width [Ratio] by Automated count 16.0 % 11.5-14.5 H [facility] Platelets [#/volume] in Blood by Automated count 133 10*3/uL 150-400 L [facility] ID Date Data Source [id number] 06/22/2021 08:14:58 PM [facility] Value Range Interpretation Code Description Data Alisson rce(s) Supporting Document(s) Creatine kinase [Enzymatic activity/volume] in Serum or Plasma 373 U/L 20-200 H [facility] ID Date Data Source [id number] 06/22/2021 08:14:58 PM [facility] Value Range Interpretation Code Description Data Alisson rce(s) Supporting Document(s) Cholesterol [Mass/volume] in Serum or Plasma 264 mg/dL <200 H [facility] Triglyceride [Mass/volume] in Serum or Plasma 77 mg/dL <150 [facility] Cholesterol in HDL [Mass/volume] in Serum or Plasma 120 mg/dL >40 [facility] Cholesterol in LDL [Mass/volume] in Serum or Plasma by calcu lation 128 mg/dL <100 H [facility] Cholesterol in VLDL [Mass/volume] in Serum or Plasma by calc ulation 15 mg/dl 16-42 L [facility] Cholesterol non HDL [Mass/volume] in Serum or Plasma 144 mg/dL <130 H [facility] ID Date Data Source [id number] 06/22/2021 08:14:58 PM EDT [facility] Name Value Range Interpretation Code Description Data Alisson rce(s) Supporting Document(s) Thyrotropin [Units/volume] in Serum or Plasma 0.769 u[IU]/mL 0.270-4. 200 [facility] ID Date Data Source [id number] 06/22/2021 06:42:00 PM EDT [facility] Name Value Range Interpretation Code Description Data Alisson rce(s) Supporting Document(s) SARS-CoV-2 RNA 2019 nCoV Real-Time RT-PCR: NOT DETECTED [facility] This lab was ordered by [facility] and reported by [facility]. ID Date Data Source [id number] 06/22/2021 09:14:18 PM EDT [facility] Service Cmnt XXX-Imp : NoneRespiratory P CR Panel : PCR ResultsMicroorganism XXX Cult : See Labs Tab for 2019 nCoV RT-PCR resultsHAdV DNA QI ARNULFO+non-probe : Not DetectedHCoV 229ERNA Nph QI ARNULFO+non-probe : Not DetectedHCoV TXA1GQD Nph QI ARNULFO+non-probe : Not AliwpnyhTCgMSD80 RNA Nph QI ARNULFO+non-probe : Not ImvlbehpTVlDKZ27 RNA Upper resp QI ARNULFO+probe : Not DetectedhMPV RNA Nph QINAA+non-probe : Not DetectedRV+EV RNA Nph QI ARNULFO+non-probe : Not DetectedFLUAV RNA Nph QI ARNULFO+ non-probe : Not DetectedFLUBV RNA Nph QI ARNULFO+non-probe : Not DetectedHPIV1 RNA NphQINAA+non-probe : Not DetectedHPIV2 RNA Nph QINAA+non-probe : Not DetectedHPVI3 RNA Nph ARNULFO+non-probe : Not DetectedHPIV4 RNA Nph Q ARNULFO+non-probe : Not DetectedRSV RNA Nph Q ARNULFO+non-probe : Not DetectedB pert.PT PrmtNph Q ARNULFO+non-probe : Not DetectedC pneum DNA Nph Q ARNULFO+non-probe : Not DetectedM pneum DNA Nph Q ARNULFO+non-probe : Not DetectedB avfigPB759 DNA Nph ARNULFO+non-probe : Not Detected Name Value Range Interpretation Code Description Data Alisson rce(s) Supporting Document(s) ID Date Data Source [id number] 06/22/2021 09:12:50 PM EDT [facility] Name Value Range Interpretation Code Description Data Alisson rce(s) Supporting Document(s) Specimen source [Identifier] of Unspecified specimen [facility] SARS-CoV-2 RNA 2018 nCoV Real-Time RT-PCR: NOT DETECTED [facility] Assay Performed [facility] Patients first test for [facility] 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 [facility] Patient has symptoms related to [facility] When did you start to experience these symptoms [Date and time] [Phen X] [facility] Patient was hospitalized because of this condition [facility] patient was admitted to ICU for [facility] Patient resides in a congregate care setting [facility] status [facility] ID Date Data Source [id number] 06/22/2021 05:22:05 PM EDT [facility] Name Value Range Interpretation Code Description Data Alisson rce(s) Supporting Document(s) History and Physical [facility] LXXIXv7eNuPKNdOk58/GIWwsFJBrl2OcBUktQHk0ONjuTZMgD6BmEPG8fH7dCAG0WJsMIcWsSrDoSIQi lbm [file] AgICAgICAgICAgICAgICAgICAgICAgICAgICAgICAgICAgICAgICAgICAgICAgICAgICAgICAgICAgIC XxZNFaRPGxQESxXFVyMEIwZFYkGP0FBYBrMMYtDDWiGPQgDWRkETOaVNMtCSWrMBNuPPUdHTFyACNbGM AgICAgICAgICAgICAgICAgICAgICAgICAgICAgICAg AAUuUAHkTRLvGCGaFPMhFUTcNOBuVVQuHTYrSAUlFS6YSTHoUKPsNHUvGRRsJBOmSYAsEKJoUXZsKWKh ICAgICAgICAgICAgICAgICAgICAgICAgICAgICAgICAgICAgICAgICAgICAgICAgICAgICAgICAgICAg PSRlGFXeJNAgBPCeOT5AYFBmPVGwZIFwOQIwOXPoYE AgICAgICAgICAgICAgICAgICAgICAgICAgICAgICAgICAgICAgICAgICAgICAgICAgICAgICAgICAgIC KxIQJpILQnVCDfZDYjLJSbQJSxCWJfHV7JVUCjJDWzUVCbOTMnUCOuIGHzIHZkSFNpJALzLFWgHUCjRQ AgICAgICAgICAgICAgICAgICAgICAgICAgICAgICAg TERxCQSuBEKyQWXgSUWpIZVuXMEhWNAlORCaOGOfZYBzQL5XHCZeONLsNUMkTVMjSZYkMWToNKZnDCXz ICAgICAgICAgICAgICAgICAgICAgICAgICAgICAgICAgICAgICAgICAgICAgICAgICAgICAgICAgICAg HHPaYITkEZMpYFUlEDVwMA4ZYQSvXZLjVLCkPAOaGZ AgICAgICAgICAgICAgICAgICAgICAgICAgICAgICAgICAgICAgICAgICAgICAgICAgICAgICAgICAgIC DxTYPbDSMyNWAzDJPtUCOhXPCaPVRqBDIjDR7JQIHxRCSeVKHjPNBcSPDjNERaLQZkMSDqUYEaBRJtGM AgICAgICAgICAgICAgICAgICAgICAgICAgICAgICAg DGVlLWZuDJGaUJFeTUQeVTDkUBDyZAVeURRfDHKcXZFtORObMT2JCJQyVVUdHHNtBTTtLMZkYSLpHSLv ICAgICAgICAgICAgICAgICAgICAgICAgICAgICAgICAgICAgICAgICAgICAgICAgICAgICAgICAgICAg JYKmVWZrDYHtFZAhFKRhQGRzLC3MNESfULVnTXXdFM AgICAgICAgICAgICAgICAgICAgICAgICAgICAgICAgICAgICAgICAgICAgICAgICAgICAgICAgICAgIC VvFJBdTQEpOEOdOMShITPhNLLbFCIsJKGaIPQzUD4IBY76aCDct6E2IEYzBN5kaad/Lk9UXSbzvkFblV AjPA7SGpLhYM7tat4EZbQxGA8xdu6GDZhBPfIoZ0D6 yFJvZHBuLWZJMfRaX87bFGldZm39LAzpMQXfNmGoKYq9Nj5MMuJcW1ntMYXfRbC5NRGjUwR0WROcJaS0 OHRtCkMoGBNvRMPcJFBrHELTFCK9TNOpOnUjEnPoARYgEA0JNPQfJ967wvGgYj4BWx5DTvQeYW4mdh5E ZknyDHFyPasFGbc6BYeoHT5TsSAwfWZyWXMgQEVGEl RhV0suc6LoAtamVOEQMHdhVS8Fl5FhoLQvVZy+Hw9LZW8cc0XqZQbmFYUyIL2jtb0KLFrREnAzN1ZunF hiKJjcRGHnzOBNsKtrrLMcIOazIHKfxGpeTT7gTTOsVJ9qXC2dRCViCCLiRgS5OZLTMR9LIYBcJTRtrK QtLDHiLAFZDU1DTOufBEL5HPIphxEraGXrKWtlCN1I YXJlbnQgMzcgMCBSDQo+Az8XZN1dg8DxSWpgALWzJQ3jfg5JHNjBXkUiO0O4wSSfR6A7KZhjMd0PJBAk PQMfVmEmPHPSPMmvOK5JAC8ipoE4NW0RfMZtVYBuRMVcwIIvHQd2Z04zfYSvWAobXQ3YJOY+Patricia+Pg0K YRVnNFSnJXGaLlPqHBTSJxLsB3HfN5BCk2KeO6JwQH 28sRwgobDwEPosQE5VQH2yDXKjBGTHJM5RaWPlkP2uqeOeEsSuLHYVMmEmY55paYJsCIEoFCA8OVWwFf 5NONAfE8ZfrrGcbRzmuyKaPPNrRDKAXT9LTXgbdjWazKBlnLrpBH80aRutEX5HOu3NHtUmLZ0hyb0InX QvNj0OGXU1WM5VIRHyXZTlWTFpSLB5LJKpApOuKRlp BGSmIXXtBYX0SFOjTWPiYR5EDaOdKXCeDWLnTOoiWACaJELkdo0LQXLuHTJ0BlE4YAMyKGXqGSSuSZkp LROpBAAqYBU6TRPaWAWoWT9IVxSbDSDzEJC1WZDkYIZbANDyrw5KAAQqQGHcVcN3PXKyUJXmXJCxODqt BQJrNMS3IgH2KKKjQUBiEZ1GEhElNGNaXRR3LnheLZ NiYNDqms3BUJBnOPBgZRP6KTNjSLHzQKLuIFknUCOyYUF5YRZ3PELpURZbRP2WRbIgPNDqWJFeItenSL IvDEZrxd8VXCUsDHDrAYC4WTEsOREmRSHpHUizTZSdVXOfVRP2UZEtHASyGN3XNuErCGAaYDGrQyHfXK UiFMYopx6UHWYrMWBpFgU6WPJrEGAoWGLwCScqDBIa BMS6Ksk0NBNzIVMqRE7ZRcXhEFQzYWx0MlooABXtMHZraz8KEBWjROTmXLU7NCUdSQFhEKYtMPxiYLWg XWW0RTB7NLJeCCLpWY4KYwZnUBUoGAalQLFqNQQlRNGikt0ZYHOlPBXhGKHgNBOnFELvESTbAWghVLPk VHThWEr0FQPxWZWvUS5BSuAlATQlUzZ0RXHpGIXpNX Cpzb7TBDGhJYVoJIk0LCJxQTDzMKNzVCwmIWLnUDLkCKD3JFXdQQBtLR3NYuDoFJSyOeWaJtJdHALlEJ Ukry3CTLLaQSQkXpTxQYViAJAoCPCuGLabZGKeNCZ3BWI2YLBaYTLuSL0FXeWgXUYmJugwZqJcVJHhWU Hswu8BJDUsUDEcTICkYeYhMKLdSSSgAZkxQYOvQZB1 XBowKGDcOPVcTZ8KWtQrJLMpKldxRPBsQGQhJPFnzm3MVMEzNXAhAUm1WTGzIVKaPIWuBYamQBEuYWBj LIM7FBFvHEJdAN9SDzPePHIhWDOyVxNlDNRrVULapw5AVUXwKXS3WJz1FVFmSUScSOEhLQrsAFNvOFMz UmQ9YKCnKFFnRW2TJsWkQHRiRVZtVBzrBZXkAMYwhs 1UKDIpPWP7SrX5BbTyTNWlTCKnKPr1lzUnnSIhNVo2UH5CO4DlnsGyEAMAKw8Qv909WEO0IZRgTg3RT9 saSl1hEKXiSTJQEq7PZFo1VoI4ZKJeIbVjMHT0ZwO3GDL7YYJgAUk4WBMuKxU9SnD+EXscIFrrRuN9VB OhAmzdJWeuBMtjZwM4WtL6AuTmXhy6WS5tSTSMQk0+HKbuwLUhpVjtJKKDUxFiNkhyGIzrGOEHOu5B ID Date Data Source [id number] 06/22/2021 03:57:17 PM EDT [facility] Name Value Range Interpretation Code Description Data Alisson rce(s) Supporting Document(s) Consultation [facility] NEMPZx8nRvIEIaBp87/YVTkvBWInp6VrCBtaZYg0NQdzYPPfB6EuDVW7rV0nRTF5OUyJMaXqChTiDPJo lbm [file] 1LDiE9GST9yHAyFl2EGsVtWVGHHtDxUJ8JVQe= ID Date Data Source [id number] 06/22/2021 03:32:09 PM EDT [facility] Name Value Range Interpretation Code Description Data Alisson rce(s) Supporting Document(s) Consultation [facility] GXXNUu2gJvVGMiWl98/GWIjfMPVck9JoOAopXCd2WXknQPQbU7EwHUJ3kH4pJSW0NUnILjOxZxElXWBn lbm [file] WrvnRzBwVtegBIM8LStkPXJaLnThFO6TUt1GPnK0JFJ6tFAgQj1JOZD4CpMMKfVvYG9TBYg= ID Date Data Source [id number] 06/22/2021 01:00:28 PM EDT [facility] Name Value Range Interpretation Code Description Data Alisson rce(s) Supporting Document(s) [facility] WYGHTh0fJsNZEsYlz7HrUcLqXWFuTM4lrcc9Z1M4bXSrG2VlrGIhw6flX4McY5WnGJQrBTOWKQ2XrXHo jb2 [file] xDI6E/WSgv3HnNrmHI/qTxtEhnp7O0+verónica+Iyo0nmna [file] 2E54egpZBc+05NVV5e33mK7irSo+9O/bt96/975wqU dCH1+59KJPcM6cfwryiw/bNxmBbZAZf8PpmgohW+IQX7L0/U1sp2YD4sGOWXp1+nqlc+093e79DpQcW3 55rG6R2bkxx0jlM/V266/mwlNF2V/JAxkEf5eqLXiH+GGqnQE5z07rE1oZVMJrhhwCCrAd1c98elVtas FtcAsFUve1FZjnfzu9NNd59w+QikJ9a6hqU0F+OKm3 xKkL6zaZZL/b8z/RpF2UAp/4at46rayeSTBZwZNRe+WRqgpwIWns6toWsUz5uJx+tFQYN7e9ncIf1+X+ eaZ3DvwV/pjiuDkH4cS5NRIhG4SmM/oB/YBeoVfoJ/QTeoPeoF/QL+x34Wpi9+auhBf2645G7OL1q44k F+t01X62Gb9RJtGI7Xr7R8qF0wWq9O/oN/L03Ko7Ao praK+vcYc1IhpvzO+gcOa7VqadkJ+ezVx4XsbcdT+zrDt8BznyuI+jbZsyCWxyWeqE7ygG0yF3xikleI 91u1xLywAb5Cw9vU9H4Q+mg6paNqtlax01Losd51P8y+NZXng/f44bFBxf0dbhxM2u/gO3cqDq702oV5 T07sF29+2v53gb0z8yMb0a42W50hmIu2lgm9D/oTfo DfoF/YJ+Q56vsD6Ofs4tRiGY7tqKsoId9Dv8VckY/Jw3K3DZmhoVOOV34DJ0Wd0Hu0Ru3Fb0J/pdevev nm3oG/QNeoFeoO/Q1/G1UCQ6HiBvju4YO/QT+vr3tL2S3F5tn6Y0X3ly1A4QmsVeii1nq+X+VdzDvgAo 721f/9NPYUBvb/RzuH+KwJLnw2l3jIhlKey4yC069c +pjuFaxz9f9SJqIc7Yuw/Kzlo6i73/yvKI7l/JKRj2+IG+2Cf9VV/rk/6SL/VJv9pX+qS/3Ni5pnb4bP 0yf6HS8N22Pmu48FwXx/bmFx54q/87qpK3qqbv3PllPz6eS20el7Mr7Ck0HgjL/YB+QK/QK/QT+gm9QW /QL+zQ4Ql3Xmmuu29NxhCI0lsoK+PfXK31ql+t97Mo nl8d0A/w0b2XmU908pvwoxmzo6v2cJ1yXxW5Fla1M2+493v5EfmNasc6nyi/uhRR3ehg59t/haU8KFid MrWi+1fnf+LgQ731rytE6Q/A0KPuM1NxwLj/2tOQ53nf/n8eV/D88g4HG6St7/avJPsxb//z0yj65G97 //vmL39Ctj4F99R9w6//SnJ84/avXvvx/d/+leTMpt u/ksyOdvtXsiMRqvtXV/8nxr6M09n1QzlA9P2Ztsxv/ypL2rh/lc+G8ydUdkOCK/eovC9U95O5A3NhxY iJMg1jEioc+q0vtS02kp+lD//qbD9+jsC/LczMRh8M5T/I8gA53Nv3O9kt+608d7jtcCWEkKVu+L1hPw m8X6Uk6Npt9YY4Yb/uX+X+d8W/uwpl1DoxZybTbEz+ QD+gV+aT5w00irH3B/QG/YJ+Qb+h34/nE8oVUuPI+ga9QC/Qd+d66QZ4Em1Sx8UG1Lp7Or8Gu1Sw3A/o 6v7A5be/Nf3yP05L61JC4IN1cn7frgE1m1etenCt3Jl91CF/6zNzdXS1ts57t9diu2i/91bxfg//aoZ+ P/5JD//K3xU9/KsR2+99s1C1G98uIkbeT+V2f/zALv F20dUnaf9LnzGqnT/Q1/geh783gjQu4K/oN/T99RGczE2rC/NCpoBzhWn4h/9cfit9V9xTFoYRg7o4d3 5Iduf2Zv8FfbRc/vLmwzqu0Rb8GGcDYlJh5CC1G+8ncZ5ZmgcwAno3rM3D94oj+l9c79TpO3G1P41n+F dxT4Z/FfewVvzbw7+Jxl36x2tXga+CMnK5d9Nma3T2 C1lofpWhgO/QT+gN+694oYd/ghq2xF01yeF/3k2iD6BDy1SOboQh9Rbd8z/2lS7pk/tCl/DQeA7O7gx0 YxRZt4C5mcx0F2xVBnO6xPX0CiPRAp8wdfgqHThUW8ui7ac1BSmo9gBEgyvX7uq6dzbSOqd/uVvF+93K f+7w7Nt0HxjM/YB+QK/QK/QT+gm9QW/QL+rL5Uf7EW 9V8WAP/8p9zh7+1gdDEhNQ6Ay8/fH/+6r+ca1Y4Zw/Lzy/5Z8Ga0n6H0E9FuG+zv4r/zbBv/I1K+eb6P 5VxAW+YiX9/x7+leb2Ey/23X4k4M7tB4h8D4mc0/3m/zRD58d3o+uK/RisL8fcVB8uhH0h2+yUCj8ugQ /d8vcy3z6j/9+RxNDo6FbPJwBY9B/jhbifb//Knfp7 2+UB9SfiEyf3058oGgNtuozm0MaJ760eo+Tk0lkMnYGGNYkH93n8/Ln0WUwA3d3uLN+JzdA5f6T/lbdl RP/VyO3n/TOuel+N6L/KY5W/Oq97zeD1b21366+G8Z7965/1GtF/WQ0s6H86YfFJztQdONqXmgQquJ/Q D+gV+hdTUb26T4npVK+D1qDu5P/oN/Blh6Z5ERB/bass 6PfpxnAuLI8F7JynBfQjEWNhtz1K/mjMmarG0B3zgjQ5qxfW5Y6yjb88FpsvX9kVp72IO9jg6T94Rh/v fY1d6O29aHfz51Rt+hN+gN+bK2cw7MY/HgGDW+MAbu5/Xw8afWzj/8L8sefhM0/Kt4dsK/iucr/Kt4Hs O/cj9/pSQ9fbn7b2urmxauF3XilgNLAo8B6Z52bmG+ Vbwfwr+K94aW/zy0+zEF3ijjfP2BLwtygkg0x8t82h7n/rqhA/oZcNXv0En4d+jE/k54p59Ga5Uf3Da8 d8z6/o55Qd+gb9BX/+QI/yrew9l/ldvQD+cZ6Zr6Fi+mj0Bp6Im7rnssqzCBF5nk3SLR74Hno63x3L07 fFkip3J7ToZh+hqur+A1Wv5p7lpkiy8N1AZ88T1M+F cD/zQPexVlPx05YxE+1VhoL/utfDg8BvrKt4xbuIRZt3MC4+4L4mE2XuH6mnCazgM5MhXnM2H/OtvQG3 5v2M/C/heOW/PYKGIgKst6C/s6j/SxfZlH+uS+yiP9KF/cgf30GC/K/Rfo8zQvsWxMG70o0THpfzvHf/ zZ6585yqRn2I/sx7B/1teGubjj3MkyXJ3f6zw+8FUd 9Ra4fi5gq1/gkRwYj4PeeNHeLaDRghZfucVp8LatW/QDeoVeoZ/QT+gNeoN+Qb+e23Wd2xd8v6KTaGGi 2+pkmJw3v8HNeVd+Qz+gr/eVtnpfaVPoJ/D3hjXmiz+1VbyvrcbLNPwr//Zpq++vr9bI/jRfrJExha/V oXcEy1jzyAAistEqK88fqT/0X6lU/SwZUIdDm3dl/9 yXaMjy+44IuMUx2lj4eFojfd3qGp59Z4NSvN/ByWsTmhpCPVd2calclIMhg+TPmq/UyXiikPopzbwH9j uLRnRs0qQBFw/ak9PojiBlbmrN/kQj83ZuRdKsn6zg8SuJ0WErk3tQylAEE/5V9F9p+Pbbj72miQD2Y1 ay1MQrhZ17Zx1aQ5I9lDvC6F/wc6Kriln1UO4JP58W 0kClirr0TpdQ/YB+QK/QK/QT+gm9QW/QL+hxP+f8q9x+/DrF/CtVtDfnX+U2fo/2KtqraK+jlIm7Hgzw aK+whNv0WdjebN+znYw8fm+V57lx/uQsODpbT9VfcfgIe0EfIs4J/mP+1dmGfkA/oFfoFfoJ/YTeoDfo F/Vb10L7Ku5aca7hY5p7D7xbqTv7TN5X8CABJnJ2Am 0N/yrsY9U/qeFfxTNlFe+rlb+h4V/FMxv+VBjVOx0CXyfqohNdlLQ/uYw4d5wg/oai/0pX+c+6yp/0BR Fbs0HGw/muZkp3d/D9XaO+4yu+l9Ut4Yy0J/vDaBGm9Y/oF/Qb+omL0Rgdpcm7+BvhX+W2QC/Qw9/Wicho +Mv4XP2oFn1r05fg3zkg49elH65F49dCzdyKqe5hJe ep0JxkAxC0ao4A/O8K/gC4DloGf447Sn5I/sf2A/Hy1v5iA5qfOd9Jd6pn2c/fr547NpeP+7oK/rO1v5 g9IWVptbQO/013uBG21O/c+zVX/nmPkmOs8E/ldLDg8eM/re2Klqy9+bkpoWAzglr5j19RCrBHk0rHuF z7zD7qX++5UqB9gJ3mSX+l3H18qo+97idD93Z49H/H GuR13eroI+yfT+q7M9oZ/QG/EMtctvfV9h7C/ahCpYv1n2bXchp4suy/qFFduPfzhj/tUIffU/z5h/db erN9GPI97UIl/qbEM/oZ/QG/QGfc2/mjn/GlM33SNbhUBvQ+a4oG/1+9Fq/2VldMMddr36JFgvmk5nSC qFfkI/oG2Y7kHyQ64pAe3sGeKGEXSwV7dAwiIa/Ds4 4V9NzG+aDf0ZY2U+g98/QdC0M3s/qygBmtn3cSnz4/5Vy9/c7b3i/fd3x7j2Ru+7O07XgX8aTIjgzF5x VSE8zPINI6M7rfT7THeL+d/+jeBb1Sn7EyTTz+pmD26fev7aG6pir/5x85SK53/WpPui6w/Oud3+1es1 NYmEJ1mw8x+YyYsb7mfNRgI4zKgK/1Y8Oxii13run1 n+qzlrPvCceF/N8jdm+FdxTcO/IeiPzm7Gf2F18OA4tg6M1l//Z4Z/dbahV+gV+zu9qU5lT+xW5Bf1Lj 4bgtuLWfu3Qj0EDfMZ8Hq4wS7By7I/NRfaG/6W5lsW0U0W6C/Y6K3598Bq3Cz7D/pd+g8uRPomk5+Y33 0233t13gzD0s80kfB9u48l1a7j28p45zq+G9d3V/w7 M835kdE9X+3daO+v1fuW7uEzav1H90LN2GC5Hv1AgzjorAY+zPaJcSOg5xUe6r/DXy6RNyZt4EX+hmF+ u13V/0fR5N9lZ3/DWo3vW/hXO/QPg0Txj2pZU7neK5ftwq2qOx/TGW9Q5b73q5C9/qoKQ0uy+SmC8wfF NvQL+sE8agvjp/Ad4qvPIdXJ+ga9QF/+jjs7VwAf+g L3cI5uY7SXSzRHteXlwX/Rj82mP02n2im/eketm7F59TJ5mTy+lcG/BlvKkkUK2qV5oX6If+M5szuj2S /3Z59cJ81v/S7x1CifYRmY9siA6gT1YhV5nQ8G3U25S7sKpman8GJ4Cdchykvg/lXss/wrGzU/x0bNz7 OK4iENkznoADkuRwTu9UZ9z91MW7Xm+UM1v1xpVXO6 V2s+koV/4S3RxX1J/rwnZslYwLz/qnk/rXn/OnNHj9qwipbg0f5znLlOG2mW2Ppxosz/VW57/5VxXV7P vkEvtX/ll7ftzl4Hbnnct4t9K3u+s+Iji/TOÑO/Antonio/jHR1i3skAqk4264Lq5Zr2CobA7V6w/OtvQN+gb 9AK9QN+f15CQ4Yj6Qt9CX8PS8ZGnj/jWmfg5N/oF/a 77x/2riPvM/auI+2xFPBjbDfoGvUAvdX+uyz7fUt+UeUp3xnY6OPe7s79mAoii8imUkzq7ctqCQb3MmE tXjR/ZwvV1/6r1+W1q2lqlRdwWR1Bxgx16y2zVsw15j8ww9I+9tn3/t3+A101a2l3q73/Gdy4iwIgVb0 /tR0wu4tU48NxkdTSlY40/FeMdFvOvwh+I+VfxLPj8 z4Yt2ukmFt6/dxW0e7hd7dC8u7KJ89ul/Mbv/qd2B0bB/8Qa6aT0YsA8S/9nC053Grz/GeeoARe944bw maqIOsGe1uU34TfGpvp9e131r0EysG2qRBWfyr2MwmM/oN/Ql3+9Mi0bo6AV85Mc2Fn5Ld3BlnH/oB/Q K/QK/TMi1jV92Lykb7P3E9nl1G2F8fsfW9kreV3T3i rcW1sbpV2R2qcrB7ibyB2I0slhZ0nrwB2B4mwfI8crpS9O1mq7d7K3Iz9slN5Qpogk18InhaE6cOjkuG 9r8FzrB1m58ihT2k573pb/uVvN27l19hIe2F/y9Ba5T2oz/eAK/xmcm9Y2kHbp+L4nk7aC/sYaFS+sUf HCQv/Vgn+1RvmTK/wrf+rpWblx87z2UUo8k7ey4Eu5 KH6/n+/IRs3qawI3P6t7V9lvuI/QC/QCfYe+Qz+bJ5Uq8Aw2bP5Jo/BaLow30oDu25h5dYvHwtVkwZy+ mohE3O12Ao1RE9A51Et2R/vTqTNk8H/oJ/OHoGDU7r2g49m+xgr/YeWU0hR3iL/QN+gFeoG+Q9+hH9AP 7NZ7oO6MA0LI4EYh6/Haysa4vXlQ4eI9OwO7Ug4pId 4kvCcFpKpiT5ki2zG8Kv0iy/jq72DsmmW2dnECMyUQQec0v68sj2q/24m5oQT3OU8u6xmqs+6fL++/Sj /E+6/C/1/efxUxwvL+q/Kk4h56qzNu48xV05+g7SG3uH1nN+qc1MI7kq04qR6t2nVr45/O+Sycp/tXFm 1x/4riryX28RiVCnk4Y9tZzHUlcanPyN/fK/SxHja3 oR/QD+gVeoV+Qj+hN+gN+yZ7sn1C52hET7Av99HyM/oGfYNeoBfoO/Q1Xraj/+psQ6/QK/QT+gm9QV/v g77vq9VTp9NcbNrdIubRL/QqqQi9sFsSQ1Vkpy63J8882eA7tnewt6LSvOYn8f/b/gaGJbr3K7ttn0+/ itISO+Fd6I57ljkHf/F5BwaRx1/lz/L2+Vcz9+Pzr3 aa1o7zZjloc6+vICb0tupps0+V/+nrn7LBAus6e8h0xB//Jiit8i2xBEW+8uwL7bq3lO/S4e4sjC5sJ0 WwSeS/adw12bjx01+N/Kp92iReod8IzH3t5HuXjR+ix53429U4PPgMlXP6sc9pcu+4m6Fd0cn1xDirir 83eA6Oo4Vr6KM4Pc0Cf7Lb8Kf7G/muF2m66tEt8H7c e9PgdGfg7G2FgtNdFjZW6K2CewTjIgSO5L8GgeKkMeLK4X2RpeDhhEqlJYzk6ihM5bp7XuYF+Xw8OVda b42btypJ/Navarro+m2b64e8JDzb4jhX8ku1UbZ2yp5GL3wM5GG897HfJ3pZ6XX885PrO2xx6ybux/nA22o+ [file] Yb2Y7QlrKmjjUbBMZMUjEJTY2lkVfKAWMhOCHTRTAD xkoaUbsXOU/zim2lU/dELQfAT22qqklxZTz7PlBS2FzEsq+T0iPQYDb/R3s0RrnWsvJKUCsoXyJ0VxyS x5L/bOHB6hg2vvpaxvhxRpnfXkoFrGf5gRUjNzoxKHJssZ3Ps13B+FewKivWqC3tVAKUaiKqhIYC90WG kBR3lQNMXrjlnBMhECPpZZEuc1thPRQArqGEkoyTMW hERIOkknGSToW4+QKRGUQUKKAeea8GfWQUVoGzXBCpiBn1lPOlAaDaTPbONtoFUXjQezDA3M1CPHj8+8 BzzspwpHq81OvOImWVDnNDswCOyb9XnBwf8nyLbOOZVLcg9k66CnhdiMPNlVYIOeb3KTiDbaC0Bov2dw belCAyyJN7RuF9GBofTh5vkaomNJVkSboshuEK2NiB WfGnQ5BaOJEggD6FLxaJRxCC6Lboad/B+iecHdbWd17nv6of5783d5lNZzYT3dRYkyrn31vOaYDu3Gtg Os4YgevPdzBAdNTnipyDDjbTxZKTNr3pz03bmETzTluNNIraSuTTfPP0FfrTESdFbBUAXWsUlQ5r0JUL cxknOLxXrnIzSSxv+OcljUMFS1uviNrr4e39vY785V liS/ReZx2fozE3/1FCoqyNIk+nPIX2Gk5odYkHUuTJnBIY9b9Zr78HRsu3ITIpMUBt58bWKarS+CPgNv YsFTQc8Qyl6V+c5dhW7Y4TaIyaU5Y3TdqrF1AaqGOzS9i2ajO1vtnyYHflEU1LrZat/w9xRGn6lyZNA6 TTfviQomsP0Z4siv8f4XlDKwVYg9CdPtVqZjCD/jRh 3Qli1TY6L1nKO/1BdKlaTD9v75+W5Ctp0J6VlR7G05vPo2G/rSooBJCSRGYiSLZJFsEvQfRCGTEkgaCe yjOpNCfCmxmkyBRrhaUIDAFMpEIYMVZzMbbbExmQur1tYXCb5NHMvv5R8gti9cJ9n8dtMBpAXtc2IyVV ul5OxHHvb9QQVinOFCEbyuXDyF44LivfXCvb0M/Ro wRNOBhj1MiN7Dv5/My/K2vwgDt5nrkc6g5obTsNgrUlF2wbu7hvD26kP4r5bx7oa64Y+mh6OWljZWJW0 gDFhbQ7xJUS12owtcw7R1rDIaop/vrbstRb358IadgZWNUyatb89nuEjL2/7HWD7U9SyKhnSytEDuI0d Jkq+h9UgZp3mdzdKoen610tm+no4AT8PV+MLezQS+M nYHPL23qiVym/JOSE DAVID+SH6Ooj/IOj0BRGOsZvIdM8yMBQoXIR5ysuWEQeKOHFQK6M8Gu6UVwNOCSIdZsEP [file] zW4kp94/bgY0ub6557//Gf377/zXefv/h86s4UT94+ 5qsvf/X2/afqcfsm92jcaO3sz4501Nesc/7+5n12rq5//ddaz5fRSi0/+ubDb7/87L0mzDl77a1bom04 d0XOAz/aNx+//+7t85df/fKfv/xk58qygCsu/Pb+Et+//l538571up8/9TriN7/75uw6V9+EtJ1zl1+/ +vLTLz78+sPHz//J/7Zj1C8/mkw442xh68///jrvt2 8+/zRKG963++ne+PLTV5/f/uW/oOPR3z9zd8886w3m/fmHf/r061c7Nl2shp/5ux/w3jM27Yn/8ucfv3 1X0XXoC/3iP/wF4HSoE/tvv/uq3e4mt9/9my8/fE326099/Mv7H96+/ce3S3/6X7//GBepzS+k/f1/sp z7oMMt6eI5d56512sA4/zj69J8/Pz21S+//PiLDz/+ rdig4zl/5c//9oe//gcZu8527//77bd/+OMff/fXv/7wuz/+/dvXv/luF59011lwoe7F96411k0y+2dy /FcM3gjx+wA27mcKg//mqvrqJr+v9E9/+tm/32W2btMyclC//Uc475XIFj6qV/4fQA+/Hrj/4foHA/XC PLVr+g9WuXyfxa7hUs1cx47Yp9lr+ge47BptR5mRH1 G5f/Dph3/65ZJj02uapZ25+puvfvnhV6+e6snp972+vWtvf/ePZeaf3/+Aot353954UTu8AY9/Z2ZPqF EmOtZrtyrb73u//Pk//uHtr7/7jx/l1m00KQ8UeDv0x/707z/e+2Evu/x47wf+5tPbH/78Hz/89f//m7 OP3R+Tvt/97X0Vs/XjvR/2T5++e/vX/+917n/4y59/ vHtPa/yv1rtbBdHDq7/2T59/x3d1BdN/BUw/G32+96rnbPan8ZCaUdr0g849rS/Q+j/48Cvl2daelyeg 57ff/a8f/v0oF20xjq2d795/fPXTOx/P6/l7fSr/91/fjCOoA7ab/+5V802vewk//sff/f5//u3/Pib4 9Je//PbOL5Usfq/6y++/RLwQW2oJBJHar/7h9//Pn/ /w+z/99l5zkG4xP2/xo996/Y/47b//x+t++dcvPn/91qyw399+BzbyZvm2/M3v/scPb+3tL//52rbg27 9+shHf5ar8i69yS+5a1Tv83QCyz31/Chelly+Kp9++pzO60s0P9L4yCR26pIE0778eioW108iSX6NoBSkt j2ztN0o1AZAgRaPAL8bjLpxEvoguIsLzuQVLabMXVz Fgf3WS6XyTUeEAPtY1B1FVCxdg7wWZAkOYPsvVDeFlRgXPDQFI4FxFBrUN7GLJv8DMNsFPCdWpUtSZKs acC5PKZeLEOnRDJeN5UnyqKllNIpYIXnBb5+HK4hj5VlWdWdGGJeTwc7KW0IzHKwZC9WsZBmrT4cokDr P907qySwCBXpZnbzq7VeXOacKGHQPR7JPHL6BXB2TB AgUj4+NM4id2FwZyCdETNzUpx4DS3UfMFto3QsEX8XO6UwSQXjZQJULJQ1a2NlLXJdgwadzewaU2SiUU C4gC3bUHN0YHBcQCmyCDXbJVftNNGzIJKhZBssWDHuGHKnDUJjAJKnHLs1aXSbHJ6XF2AmTZIoOVJFYR McfnDiPz5oVWZOXbQBDlbIGmptNc4UQS8sJSQbBCSn DEnaC3R9AoumI9CvNE2GM5QcHSRaISMPSWKqwoViAS2SfcLdeA4mJFcLNAGCMMjYIDsvOnC0d62jqmLY QRSuFLZmAQtlSICoQWTiEXGaZYAzLTYyIWAbHRRuHW8ZH6KiGQUbPVFIJJU3b1NeATSzjazcsjabVt9s bmRvYmo+UvagLCPun1HxURmoY1H3rOFkO8SyD9XeZO 4QlDTpIKciPASeAQVgKCLnL066rmDcHG8+SM2pu8LjKytsNWJAOKLgTZIoSRUaZKF5SxGkVPZdVSDwGQ BhJvU2HjRmYdWJXTDyHZH5RFTpWlLbDPMpHOVnXTutGBBcKLK6NfO7WSCgHQDfMQ6zSxYsLFRxRlryMf afCZWyGWKiulCKXNPgYVErRZIySCI0PHOfSDCxAAjp QKLzGSPbYOR8ARCpRINgHU8gOxIuQQHeTYLzTwypNHTnTQPlamQLFJHzCIDtBKM3GgWhYYOkPNCxCGpp KJFfOCOlUat5GTFkTHBqMC0gRoMyTIVwHCO6LGydESSdMGEjpcCQFBWuHUKvHGXmMmEnJSMeZMXvXDxv VWKoMJYjAqRuANIlLNLcTL9nLbFpYOUfDOB6UEZeER OnRXAybmUQSPKuEYZxEVy5CNIlVNOlYYYkHSgzWPPuVXXmEEF1EPBeRDFmKP0zTqWnRNTcCKOrMZXlQM XqSRWkuyZURGFqDEFbASV8WCBxNTXnXUJsQVvyQFBzDVNyYze3NYRdFMVsIF6nVtAtILWzKSS7PNLpXD BjJJWzubBBHHNaPAT0EGL7WBPdNPAhSRSwEPuqYQEu INMfErN4WVQqSYRbAU7pOfHiADHlNWT0AbOuVVBzURGrqzRANTUuJJRdYXB7TvBwEHCzYESnCOpvDUHr BBAaVPOcXCZ3CRC9RSHkTrVyIEfmACVGCBrUB3XrkqNfTuCOU0iqQr5xVxDaDZNJI7Pdw4VyLYOfGKSR Cj4+WbR9GAB9mMGhPyj5QRI1KlqtWQUJZw== ID Date Data Source [id number] 06/22/2021 12:51:41 PM EDT [facility] XR ABDOMEN AP SUPINE AND LATERAL VIEW [id number] RESULTInterpreted by:Charan Monroe, DOINDICATION: Shunt seriesCOMPARISON: Images from a second series dated May 09XAM: Supine and crosstable lateral views of the abdomen (5 images in total)FINDINGS:Cardiac monitoring leads are in place. An NGT extends below the left hemidiaphragm with the tube crossing the midline and the tip looped back just to the left of center at the L1 level. The side port is not definitively visualized, but appears to be within the medial right upper quadrant in the antropyloric region.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 shunt tubing courses along the lateral aspect [...] right hemipelvis and turns laterally towards the ri t with the tip at the medial base of the right iliac crest. A twist/kink is suggested at the level where the turn is made over the second sacral segment on the frontal projection; however, this is poorly assessed on the lateral view. This is different than the prior exam when the tip terminated in the left central pelvis.Bibasilar changes of atelectasis and small pleural effusions are suggested. No dilated loops of bowel are seen to suggest obstruction.IMPRESSION:Questionable twist/kink of the 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 shunt tubing in the right hemipelvis at the level of the second sacral segment on the right (appreci ated only on the frontal projection), which is poorly assessed on the crosstable lateral images. It is important to note that this distal segment of the tube does have a different appearance than the prior study.A noncontrast CT of the Pelvis (only) may be of additional clinical utility.This document has been electronically signed by Charan Monroe DO on 06/22/2021 12:49 PM Name Value Range Interpretation Code Description Data Alisson rce(s) Supporting Document(s) ID Date Data Source [id number] 06/22/2021 12:35:39 PM EDT [facility] XR CHEST FRONTAL AND LATERAL [id number] RESULTInterpreted by:MARILYN CallowayFRONTAL AP AND LATERAL CHEST RADIOGRAPH 06/22/2021 12:00 PMINDICATION: Shunt series.COMPARISON: Chest radiograph dated 06/22/2021.FINDINGS/IMPRESSION: The endotracheal tube approaches the right mainstem bronchus as communicated previously to Dr. Phelan at 11:59 AM. For appropriate positioning it needs to be retracted at least by 2 cm.The enteric tube is partially visualized traversing below the diaphragm. The tip is out of view of current radiographA 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 shunt is partially visualized traversing over the left side of the thorax. Visualized segment of 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 shunt in thorax do not show discontinuity or breakageAgain noted are bilateral airspace opacities in both upper and mid lungs, bilateral small pleural effusions with underlying atelectasis or consolidation.Cardiomediastinal silhouette remains stable.There is no pneumothorax.This document has been electronically signed by MARILYN Calloway on 06/22/2021 12:33 PM Name Value Range Interpretation Code Description Data Alisson rce(s) Supporting Document(s) ID Date Data Source [id number] 06/22/2021 12:03:55 PM EDT [facility] XR CHEST FRONTAL ONLY [id number] RESULTI nterpreted by:Milena Calloway DOINDICATION: Trauma.TECHNIQUE: XR CHEST FRONTAL ONLY [id number], 06/22/2021 10:50 AM, portable, supine.COMPARISON: Chest radiograph dated 05/09/2021.FINDINGS: Endotracheal tube with tip terminating approximately 1 cm above the magaly, recommend retraction by additional 2 to 3 cm for proper positioning. Enteric tube extending below the diaphragm with tip out of the ldhbm-lu-slha. Redemonstration of shunt catheter projecting over the left hemithorax with tips out of the sdskz-ec-qhdt.The chest wall is unchanged.The cardiomediastinal contours are unchanged.Stable bilateral small pleural effusions are present.Redemonstration of bilateral upper and basilar lung scarring/atelectasis.IMPRESSION: 1. Endotracheal tube with tip terminating approximately 1 cm above the magaly, recommend retraction by additional 2 to 3 cm for proper positioning.2. Redemonstration of bilateral upper basilar lung scarring/atelectasis with small bilateral pleural effusions.Findings were discussed over phone with Dr. Phelan by Dr. Harris on 06/22/2021 at 11:59 AM.This document has been electronically signed by MARILYN Calloway on 06/22/2021 12:01 PM Name Value Range Interpretation Code Description Data Alisson rce(s) Supporting Document(s) ID Date Data Source [id number] 06/22/2021 11:51:49 AM EDT [facility] CT CERVICAL SPINE WITHOUT CONTRAST [id number] FINAL RESULTInterpreted by:Maisha Hughes MDEXAMINATION: CT CERVICAL SPINE WITHOUT CONTRAST [id number] INDICATION: Seizure with fall.TECHNIQUE: Axial CT images of the cervical spine were obtained without intravenous contrast administration. Reformatted images in coronal and sagittal planes were then acquired using the axial source data. Automated dose lowering techniques and/or adjustment according to patient size were utilized for this exam.COMPARISON: CT cervical spine dated 03/07/2021, 06/16/2020; MR cervical spine dated 06/23/2020; CT thorax dated 06/17/2020.FINDINGS: No acute displaced vertebral body fracture or traumatic listhesis. Fragmentation seen about an anterior osteophyte at the level of the C5 upper endplate may represent minimally displaced anterior osteophyte fracture. Straightening of the cervical lordosis with multilevel degenerative change, most conspicuous at C5-C6 and C6-C7 are again shown. No significant paraspinal soft tissue swelling. Endotracheal, enteric tubes and left 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 shunt are partially visualized. Calcified lymph nodes, biapical scarring, and left apical bullous changes are again shown.IMPRESSION: No acute displaced vertebral body fracture or traumatic listhesis. Stable degenerative changes as discussed above.This document has been electronically signed by Michelle Newton MD on 06/22/2021 11:42 AM Name Value Range Interpretation Code Description Data Alisson rce(s) Supporting Document(s) ID Date Data Source [id number] 06/22/2021 11:14:11 AM T [facility] XR PELVIS 1-2 VIEWS [id number] RESULTInt erpreted by:Drea Ladd radiographINDICATION: Trauma.COMPARISON: Correlated with CT abdomen pelvis dated 07/03/2020.FINDINGS: Single portable supine view demonstrates no evidence of acute fracture or hip joint dislocation. Visualized portions of bony pelvic ring are intact. Sacroiliac joint spaces are symmetric; no diastasis at the pubic symphysis. There is mild to moderate hip joint arthrosis with small well- corticated ossific density abutting the superolateral margin of the right acetabulum. Pelvic phleboliths and tubing overlying the lower abdomen and right pelvis is notedIMPRESSION: No acute fracture or hip joint dislocation. Degenerative changes as above.This document has been electronically signed by Andi Cornejo MD on 06/22/2021 11:12 AM Name Value Range Interpretation Code Description Data Alisson rce(s) Supporting Document(s) ID Date Data Source [id number] 06/22/2021 12:28:57 PM [facility] Name Value Range Interpretation Code Description Data Alisson rce(s) Supporting Document(s) Ethanol [Mass/volume] in Serum or Plasma Negative [facility] ID Date Data Source [id number] 06/22/2021 12:28:57 PM [facility] Value Range Interpretation Code Description Data Alisson rce(s) Supporting Document(s) Lipase [Enzymatic activity/volume] in Serum or Plasma 31 U/L 13-6 0 [facility] ID Date Data Source [id number] 06/22/2021 12:28:57 PM [facility] Value Range Interpretation Code Description Data Alisson rce(s) Supporting Document(s) Albumin [Mass/volume] in Serum or Plasma by Bromocresol green (BCG) dye binding method 4.4 g/dL 3.5-5.2 [facility] Bil[facility].total [Mass/volume] in Serum or Plasma 0.5 mg/dL <1.2 [facility] Calcium [Mass/volume] in Serum or Plasma 8.2 mg/dL 8.6-10.0 L [facility] Chloride [Moles/volume] in Serum or Plasma 103 mmol/L 98-107 [facility] Creatinine [Mass/volume] in Serum or Plasma 1.07 mg/dL 0.70-1.20 [facility] Glucose [Mass/volume] in Serum or Plasma 135 mg/dL 70-140 [facility] Alkaline phosphatase [Enzymatic activity/volume] in Serum or Plasma 112 U/L 40-129 [facility] Potassium [Moles/volume] in Serum or Plasma 4.5 mmol/L 3.4-5.1 [facility] Hemolyzed Protein [Mass/volume] in Serum or Plasma 8.0 g/dL 6.4-8.3 [facility] Sodium [Moles/volume] in Serum or Plasma 141 mmol/L 136-145 [facility] Aspartate aminotransferase [Enzymatic activity/volume] in Serum or Plasma 40 U/L <40 H [facility] Urea nitrogen [Mass/volume] in Serum or Plasma 5 mg/dL 6-20 L [facility] Osmolality of Serum or Plasma by calculation 291 mosm/kg 275-300 [facility] Creatinine/Urea nitrogen [Mass Ratio] in Serum or Plasma 5 [facility] Bicarbonate [Moles/volume] in Serum 15 mmol/L 22-29 L [facility] Alanine aminotransferase [Enzymatic activity/volume] in Seru m or Plasma 16 U/L <41 [facility] Anion gap 3 in Serum or Plasma 23 mmol/L 8-15 H [facility] Glomerular filtration rate/1.73 sq M pre dicted among non-blacks [Volume Rate/Area] in Serum or Plasma by Creatinine-based formula (MDRD) 75 mL/min/1.73m2 >60 [facility] Glomerular filtration rate/1.73 sq M pre dicted among blacks [Volume Rate/Area] in Serum or Plasma by Creatinine-based formula (MDRD) 87 mL/min/1.73m2 >60 [facility] ID Date Data Source [id number] 06/22/2021 12:51:13 PM [facility] Value Range Interpretation Code Description Data Alisson rce(s) Supporting Document(s) Fibrinogen [Mass/volume] in Platelet poor plasma by Coagulation assay 190-450 [facility] NOTIFIED [facility] ED AT 1250 BY [id number] ID Date Data Source [id number] 06/22/2021 12:51:13 PM [facility] Value Range Interpretation Code Description Data Alisson rce(s) Supporting Document(s) Prothrombin time (PT) 11.6-14.0 [facility] NOTIFIED [facility] ED AT 1250 BY 4384 INR in Platelet poor plasma by Coagulation assay [facility] NOTIFIED [facility] AT 1250 BY 4384 ID Date Data Source [id number] 06/22/2021 12:51:13 PM [facility] Value Range Interpretation Code Description Data Alisson rce(s) Supporting Document(s) aPTT in Platelet poor plasma by Coagulation assay 24.0-33. 0 [facility] NOTIFIED [facility] AT 1250 BY 4384 ID Date Data Source [id number] 06/22/2021 01:38:44 PM [facility] Value Range Interpretation Code Description Data Alisson rce(s) Supporting Document(s) Leukocytes [#/volume] in Blood by Automated count 11.5 10*3/uL 4-10 H [facility] Erythrocytes [#/volume] in Blood by Automated count 5.65 10*6/uL 4.6- 6.1 [facility] Hemoglobin [Mass/volume] in Blood 14.9 g/dL 13.5-18 [facility] Hematocrit [Volume Fraction] of Blood by Automated count 45.8 % 4 1-53 [facility] Erythrocyte mean corpuscular volume [Entitic volume] by Auto mated count 81.0 fL 80-96 [facility] Erythrocyte mean corpuscular hemoglobin [Entitic mass] by Automated count 26.4 pg 27-33 L [facility] Erythrocyte mean corpuscular hemoglobin concentration [Mass/volume] by Automated count 32.6 g/dL 32.0-36.0 [facility] E[facility]th[facility] distribution width [Ratio] by Automated count 16.1 % 11.5-14.5 [facility] Platelets [#/volume] in Blood by Automated count 137 10*3/uL 150-400 L [facility] Confirmed Differential cell count method - Blood [facility] Neutrophils/100 leukocytes in Blood by Automated count 89 % [facility] Lymphocytes/100 leukocytes in Blood by Automated count 4 % [facility] Monocytes/100 leukocytes in Blood by Automated count 6 % [facility] Eosinophils/100 leukocytes in Blood by Automated count 0 % [facility] Basophils/100 leukocytes in Blood by Automated count 1 % [facility] Neutrophils [#/volume] in Blood by Automated count 10.25 10*3/uL 1.8- 7.0 H [facility] Lymphocytes [#/volume] in Blood by Automated count 0.45 10*3/uL 1.2-4 .0 [facility] Monocytes [#/volume] in Blood by Automated count 0.71 10*3/uL 0-0.8 [facility] Eosinophils [#/volume] in Blood by Automated count 0.00 10*3/uL 0-0.5 [facility] Basophils [#/volume] in Blood by Automated count 0.08 10*3/uL 0-0.2 [facility] Nucleated erythrocytes/100 leukocytes [Ratio] in Blood by Automated count 0 /100{WBCs} 0-0 [facility] ID Date Data Source [id number] 06/22/2021 12:36:16 PM EDT [facility] Name Value Range Interpretation Code Description Data Alisson rce(s) Supporting Document(s) ABO and Rh group [Type] in Blood [facility] Blood group antibody screen [Presence] in Serum or Plasma [facility] Blood bank comment [facility] ID Date Data Source [id number] 06/22/2021 09:29:00 AM EDT [facility] Name Value Range Interpretation Code Description Data Alisson rce(s) Supporting Document(s) SARS coronavirus 2 RNA [Presence] in Res piratory specimen by ARNULFO with probe detection NEGATIVE [facility] This lab was ordered by [facility] a nd reported by [facility]. ID Date Data Source [id number] 06/11/2021 09:29:00 AM EDT [facility] ([facility] ) Name Value Range Interpretation Code Description Data Alisson rce(s) Supporting Document(s) PDFReport Laboratory test result [facility] ([facility], ) FVC-Pred 3.49 L [facility] ([facility]) FVC-Pre 1.34 L [facility] ([facility]) FVC-%Pred-Pre 38 L [facility] ([facility]) FVC-LLN 2.65 L [facility] ([facility]) Fev1-Pred 2.73 L [facility] ([facility]) Fev1-%Pred-Pre 43 L [facility] ([facility]) Fev1-Pre 1.18 L [facility] ([facility]) Fev1-LLN 1.99 L [facility] ([facility]) Fev6-Pred 3.36 L [facility] ([facility]) Fev6-%Pred-Pre 40 L [facility] ([facility]) Fev6-Pre 1.34 L [facility] ([facility]) Zdy5lrw-Adyc 79 % [facility] ([facility]) Fev6-LLN 2.53 L [facility] ([facility]) Lll7qtq-Yfc 88 % [facility] ([facility]) Fgi7dyk-%Pred-Pre 111 % [facility] ([facility]) Zzr7xsf-Oum 100 % [facility] ([facility], ) Gbc8bvm-Ghrp 96 % [facility] ([facility]) Hun9pwt-YMW 68 % [facility] ([facility]) FEFMax-Pred 7.58 L/E/sec [facility] ([facility]) Fsc2ngs-%Pred-Pre 103 % [facility] ([facility]) FEFMax-Pre 2.91 L/E/sec [facility] ([facility]) FEFMax-LLN 5.21 L/E/sec [facility] ([facility]) FEFMax-%Pred-Pre 38 L/E/sec [facility] ([facility]) Wlp0301-Gvv 1.44 L/E/sec [facility] ([facility]) Zeh7087-Efqp 2.67 L/E/sec [facility] ([facility]) ExpTime-Pre 7.94 sec [facility] ([facility]) Yfm4656-VOB 1.08 L/E/sec [facility] ([facility]) Knt9083-%Pred-Pre 53 L/E/sec [facility] ([facility]) Jbn3zeu8-Sin 88 % [facility] ([facility]) Cst6tby9-Lavf 81 % [facility] ([facility]) Gtq0ihi6-KPK 72 % [facility] ([facility]) Ffi3vkv7-%Pred-Pre 107 % [facility] ([facility]) ID Date Data Source [id number] 05/27/2021 11:53:59 AM EDT [facility] Name Value Range Interpretation Code Description Data Alisson rce(s) Supporting Document(s) History and Physical [facility] RHOGDu9qXdFNOeNe96/DTDwnQWWez4GrAWvcNTg5IMnvSXUgN7KmSBI4iK4pJZW7YFwNDnQmUuXmQKG2 [facility] [file] MZkuWlP3ChCvIcY1CJKsCDjnFJU+KD8oXDf+Mx7Ch2QjbhG2pzHfERg4RoHyZPkrTYYAKc5T ID Date Data Source [id number] 05/27/2021 11:53:44 AM EDT [facility] Name Value Range Interpretation Code Description Data Alisson rce(s) Supporting Document(s) Consultation [facility] EFBLAa3iZyYDXtSt23/DRIkpHSFdq3QyFIlnXNy7RQtxHDQaR8XgPBR3cP7yGJN9PQbMMsQsMaCqTIY0 lbm [file] [facility] [file] AgICAgICAgICAgICAgICAgICAgICAgICAgICAgICAgICAgICAgICAgICAgICAgICAgDQogICAgICAgIC AgICAgICAgICAgICAgICAgICAgICAgICAgICAgICAg ICAgICAgICAgICAgICAgICAgICAgICAgICAgICAgICAgICAgICAgICAgICAgICAgICAgICAgICAgICAg DQogICAgICAgICAgICAgICAgICAgICAgICAgICAgICAgICAgICAgICAgICAgICAgICAgICAgICAgICAg ICAgICAgICAgICAgICAgICAgICAgICAgICAgICAgIC AgICAgICAgICAgDQogICAgICAgICAgICAgICAgICAgICAgICAgICAgICAgICAgICAgICAgICAgICAgIC AgICAgICAgICAgICAgICAgICAgICAgICAgICAgICAgICAgICAgICAgICAgICAgICAgICAgDQogICAgIC AgICAgICAgICAgICAgICAgICAgICAgICAgICAgICAg ICAgICAgICAgICAgICAgICAgICAgICAgICAgICAgICAgICAgICAgICAgICAgICAgICAgICAgICAgICAg ICAgDQogICAgICAgICAgICAgICAgICAgICAgICAgICAgICAgICAgICAgICAgICAgICAgICAgICAgICAg ICAgICAgICAgICAgICAgICAgICAgICAgICAgICAgIC AgICAgICAgICAgICAgDQogICAgICAgICAgICAgICAgICAgICAgICAgICAgICAgICAgICAgICAgICAgIC AgICAgICAgICAgICAgICAgICAgICAgICAgICAgICAgICAgICAgICAgICAgICAgICAgICAgICAgDQogIC AgICAgICAgICAgICAgICAgICAgICAgICAgICAgICAg ICAgICAgICAgICAgICAgICAgICAgICAgICAgICAgICAgICAgICAgICAgICAgICAgICAgICAgICAgICAg ICAgICAgDQogICAgICAgICAgICAgICAgICAgICAgICAgICAgICAgICAgICAgICAgICAgICAgICAgICAg ICAgICAgICAgICAgICAgICAgICAgICAgICAgICAgIC AgICAgICAgICAgICAgICAgDQogICAgICAgICAgICAgICAgICAgICAgICAgICAgICAgICAgICAgICAgIC AgICAgICAgICAgICAgICAgICAgICAgICAgICAgICAgICAgICAgICAgICAgICAgICAgICAgICAgICAgDQ z3B2biIYCbYRGlCM0lWZx1Wu3+GSuNTqKeKRX8wgPu qN1SAP5wx2ElCTwiDUGte5JoZQc3UA8GLHAiFFraKT7XLSgjxs3HRIJqIFEjfPUJe2luWrQoFCT3FYWb PlbxPH9TCQXmH0ggccQxCOEnRMARTRouAGECHVfdCUMAYQGzMGDvXsNhVbFoOAMeQGSpFLGLYQI0YUAe FqBnFFTfEUUjLpEtQAZDCBFsQVDfLnTpZSrqCE7Hq2 WuoBElFS9IYg9SIlFtUM2gnx7UPLBzROAcQbkYSmd9NVjdCY8IrLIblXY1FWUtWCOQPwLuM5jlw6VuBO EsGFHVSVvwXA4Qv5GdbXRnVAq+De0FHA9by4ScAEk6DAGoPM7hkh9XFHtBAbYcX2YkgMjwRXUdoeZ7uC UpXBK8VJHpoj0agX9qJSH6XAqfgyGQTQKylPaoKO8Y ASP5MEcqEh8dEFUbNIH1IrQ2IFMTBG5ZDOJdVLNcyROlBLJsNOCTYT3NPYsfJOB1KYJygpQwqDNfZNxj MF7LNOXifeJdUWPqTNMVILd+Kc8RIO6cv9XcJPt8NEGvYB6elj9TPKdLMnXxI1A3sHKjT3M0JVrrMg8K RYAzHURcRFIaVGQPEKzyLS4RWK2oyrO9PU8TgBQcOU LwYCKocYUxWNq2C49whZCsNHurSF6NTSO+Patricia+Ts3CKCCaAGFmTKRzFnQoUAFUBlRpK1QqI8TMv4BhX9 GqBQ32yZhuqiHjWUbuUS5FAC8eWQJyXQGNDP1VkTXooC0msoF8CfTiACFQGyLhE95hgYUaWEGcMFCyLL GxUa8FXNXfD6NbthHurHrdctZeCUBuZGMIZD6UDVje goUfmEOqoDqbAV04iGbkGV5KHc1AUmHeEC3dtx3EyFTrHy9ICLY1Ue6EHMFxGRJqZWGnCVJ5ZGGvMyCg TKgcTHDnDLJgGEW2SWXeOXKdEE1ZBsPtEUKqChWlBvJtYBHgUROfot3SPYMhHCT2ZuXpMcNlXANhGXSf LDyzMTStSHOjTIP0OYVjXXQzRC1XVpUfQSGuHRCkEh KhIWOkABFeim0KJNPsPUEdVDO3HPQgPHCrKSJiAJodFJVaTAM4GujbOANqXIZnGH4UNnBwWIVtHQj7AU unWKFvAOBpuo4CMNBzNNNgOMvgHpNwCOEqCSCqUMpzQUFbQYFkAYA9GYZlBJVeCB5QJxKmXJFzPOEoJZ cxRARnFNEeaf8EVJApHASvTyJlTpDoGBVoWDFrVCax DWNvBBC0LDf0TGBcJENcXD0WCdNvAEHsCHN9XKEzEWYsTYCkvx6QGRDaLMOyOpb0CwJfXOJvGMCdBGgd DQWfUSR9SPy4BBYwGIKmMP4BStQqIXXxYpK9ZFGgQUNbZLCghq4PIBCqDULwMDmyKBZoGDHlTGGnGAut GMLuNGU6ACKeQJTtSUFhSQ7JGbMyDEFtIxO9XPyfGB LiLIYzlh9VQZNxUCXaYfQ6NoKoYVJrBUAaRYlgHGTjTCX5UtaoQCOhLJMdAR4ZMtEsGWTyDsn5JfybFN MyHTXcdu7SUNZuTPJqLNl1SgEnWPOzPPZjEFfnCQIgXUX0XxQgEXSnAMPhOM3FMmOsGUYdUhc3FLQoAV PmWRIklp7KNKKtQOFzDOPtEqUsWLSuVQJiVDllBIHn GZKwNDueCPTjORMcXA4YIeCvSGDiVcGsMZIeQWLqHFHvmg5OGHJkASMrOTR7QwApRVBvFVLgZCtnDZPs HTSuDVNfWOScPRLtVK2ZMvHwTTPuZhJ1FearGLPbXLMbcb0JXFOhUXQhJsnvZhXgRTUjREEhPPcuOJKz BQZ4NXvaIDFiMWFyAX8LGiVxZLMyUZncNWynOZAwZP Wyyg4JVNDuWEP5MRM0ZdAxUDMtUDBaYGhrNWTwZAH3ABm2LIYbSMUlYH3SPvQaWECmRHytQPIuOIBfYK Mnmb9TRJWrJEZ0SKd4ImNeWAUpDZSrYFmlHMYbFDOeWCp2JIBpAOUyZM7EOrJqVNHaHcQoGYCxLWFsJJ Xann2TEXVfGLN6LGe9MpVwVSAfUPDoXJxqDSLkQHLg Cwz2MJEtXBOoNE9CXcImIQKzFfZpSZwzMGZbEYRdhk4TFTHrEPL6NoXwArCcQSVjVYVwHBe8wxAuaJYp PNe4YL6GF7BsixRuCHTGPh1Bh598XOD8ADRgDp1YY9gyHz0jAKCqOZDPKt4XZUg9ZoHqShZmQbSrXXmf HbDlQUncBND2LOS8CSD4BYW5UiG+IDxmNjEzNjBmM2 K8ZJIqM1XmJrK1OWAwOdQ1GGL7AtEtOl4gGUREDh9+UCvbzMYutNzuGRTAWqPlNaCyZBcgFWCFCc5E ID Date Data Source [id number] 05/27/2021 11:51:22 AM EDT [facility] Name Value Range Interpretation Code Description Data Alisson rce(s) Supporting Document(s) Discharge Summary [facility] SYDHLz3uDxGGErTx64/YGPsfHJZqp4VjQTvtGCg1BLwbHNAmQ1XbWEY8uW4dNNY6AOwEYuDnYtEbISS9 lbm [file] E4M9PuPcIS9NWe8BAeZ3YNT0zBOfAi1WDwU2XwdIBuCaDV2WDSp= ID Date Data Source [id number] 05/10/2021 03:56:53 PM EDT [facility] Name Value Range Interpretation Code Description Data Alisson rce(s) Supporting Document(s) ED Provider Note [facility] TKWOLm8yQjAHLhGl79/QGKbmQERim2ExECniPNp9JNslPYEmJ1WsXPZ4iB8mPSY5TOiMAeGsMzBmYYD8 lbm [file] MWoP1g3m5A9gworXzgtto2l30p+Concepción/uVMmD8Jruy [file] cyZGMzZWRjYjFhNGZiZWI+RT5kRMw+Iu0Xy1PurxX7cdDxBRe0NMojEI6DYONLY1RYWo== ID Date Data Source [id number] 05/10/2021 01:40:03 AM EDT [facility] CT HEAD WITHOUT CONTRAST [id number] RESU LTInterpreted by:Peneloep Sauceda MDPROCEDURE INFORMATION: Exam: CT Head Without Contrast Exam date and time: 05/10/2021 12:49 AM Age: 55 years old Clinical indication: Nontraumatic acute subdural hemorrhage; Nontraumatic chronic subdural hemorrhage; Unspecified convulsions; Other: Eval ventricles/csdh TECHNIQUE: Imaging protocol: Computed tomography of the head without contrast. Radiation optimization: All CT scans at this facility use at least one of these dose optimization techniques: automated exposure control; mA and/or kV adjustment per patient size (includes targeted exams where dose is matched to clinical indication); or iterative reconstruction. COMPARISON: CT HEAD WITHOUT CONTRAST [id number] 05/09/2021 11:06 AM FINDINGS: Tubes, catheters and devices: Unchanged left frontal ventriculoperitoneal shunt. Brain: Stable moderate chronic subdural hematoma of the left cerebral convexity measuring 1.7 cm in maximum thickness. Stable 1.2 cm rightward midline shift (image 13, series 3). 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 Cedeño-white matter differentiation is maintained. There is stable mild protrusion of the uncus over the tentorium without evidence of over uncal herniation. Cerebral ventricles: Unchanged caliber of the right lateral ventricle and subtotal effacement the left lateral ventricle. The 3rd ventricle is slightly more effaced than comparison. Paranasal sinuses: Visualized sinuses are unremarkable. No fluid levels. Mastoid air cells: Visualized mastoid air cells are well aerated. Bones/joints: Unremarkable. No acute fracture. Soft tissues: Unremarkable. IMPRESSION: 1. 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 2. The 3rd ventricle is slightly more effaced than on comparison. 3. Stable left frontal ventriculoperitoneal shunt without evidence of hydrocephalus. 4. Stable findings of right frontal temporoparietal cranioplasty. THIS DOCUMENT HAS BEEN ELECTRONICALLY SIGNED BY PENELOPE SAUCEDA MDThis document has been electronically signed by Penelope Sauceda MD on 05/10/2021 1:39 AM Name Value Range Interpretation Code Description Data Alisson tesfaye(s) Supporting Document(s) ID Date Data Source [id number] 05/10/2021 01:47:15 AM [facility] Name Value Range Interpretation Code Description Data Alisson rce(s) Supporting Document(s) Bicarbonate [Moles/volume] in Serum 23 mmol/L 22-29 [facility] Chloride [Moles/volume] in Serum or Plasma 103 mmol/L 98-107 [facility] Creatinine [Mass/volume] in Serum or Plasma 0.57 mg/dL 0.70-1.20 L [facility] Glucose [Mass/volume] in Serum or Plasma 92 mg/dL 70-140 [facility] Potassium [Moles/volume] in Serum or Plasma 4.2 mmol/L 3.4-5.1 [facility] Sodium [Moles/volume] in Serum or Plasma 138 mmol/L 136-145 [facility] Urea nitrogen [Mass/volume] in Serum or Plasma 5 mg/dL 6-20 [facility] Anion gap 3 in Serum or Plasma 12 mmol/L 8-15 [facility] Osmolality of Serum or Plasma by calculation 283 mosm/kg 275-300 [facility] Creatinine/Urea nitrogen [Mass Ratio] in Serum or Plasma 9 [facility] Calcium [Mass/volume] in Serum or Plasma 8.5 mg/dL 8.6-10.0 [facility] Glomerular filtration rate/1.73 sq M pre dicted among non-blacks [Volume Rate/Area] in Serum or Plasma by Creatinine-based formula (MDRD) >6 0 [facility] Glomerular filtration rate/1.73 sq M pre dicted among blacks [Volume Rate/Area] in Serum or Plasma by Creatinine-based formula (MDRD) >60 [facility] ID Date Data Source [id number] 05/10/2021 02:23:14 AM T [facility] Name Value Range Interpretation Code Description Data Alisson rce(s) Supporting Document(s) Leukocytes [#/volume] in Blood by Automated count 5.6 10*3/uL 4-10 [facility] Erythrocytes [#/volume] in Blood by Automated count 5.34 10*6/uL 4.6- 6.1 [facility] Hemoglobin [Mass/volume] in Blood 13.7 g/dL 13.5-18 [facility] Hematocrit [Volume Fraction] of Blood by Automated count 43.2 % 4 1-53 [facility] Erythrocyte mean corpuscular volume [Entitic volume] by Auto mated count 80.9 fL 80-96 [facility] Erythrocyte mean corpuscular hemoglobin [Entitic mass] by Automated count 25.7 pg 27-33 L [facility] Erythrocyte mean corpuscular hemoglobin concentration [Mass/volume] by Automated count 31.8 g/dL 32.0-36.0 [facility] E[facility] distribution width [Ratio] by Automated count 16.3 % 11.5-14.5 H [facility] Platelets [#/volume] in Blood by Automated count 170 10*3/uL 150-400 [facility] Differential cell count method - Blood [facility] Neutrophils/100 leukocytes in Blood by Automated count 75 % [facility] Lymphocytes/100 leukocytes in Blood by Automated count 13 % [facility] Monocytes/100 leukocytes in Blood by Automated count 6 % [facility] Eosinophils/100 leukocytes in Blood by Automated count 4 % [facility] Basophils/100 leukocytes in Blood by Automated count 2 % [facility] Neutrophils [#/volume] in Blood by Automated count 4.23 10*3/uL 1.8-7 .0 [facility] Lymphocytes [#/volume] in Blood by Automated count 0.74 10*3/uL 1.2-4 .0 [facility] Monocytes [#/volume] in Blood by Automated count 0.32 10*3/uL 0-0.8 [facility] Eosinophils [#/volume] in Blood by Automated count 0.21 10*3/uL 0-0.5 [facility] Basophils [#/volume] in Blood by Automated count 0.11 10*3/uL 0-0.2 [facility] Anisocytosis [Presence] in Blood by Light [facility] Hypochromia [Presence] in Blood by Light [facility] Microcytes [Presence] in Blood by Light microscopy [facility] Poikilocytosis [Presence] in Blood by Light microscopy [facility] Polychromasia [Presence] in Blood by Light [facility] ID Date Data Source [id number] 05/09/2021 11:45:43 PM EDT [facility] Name Value Range Interpretation Code Description Data Alisson rce(s) Supporting Document(s) Glucose [Mass/volume] in Capillary blood by Glucometer 93 mg/dL 70- 140 [facility] ID Date Data Source [id number] 05/09/2021 08:13:22 PM EDT [facility] XR ABDOMEN AP SUPINE AND LATERAL VIEW [id number] RESULTInterpreted by:Grant Montenegro MBBSINDICATION: 55-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 A subcutaneous reservoir is identified with the arrow pointing caudally. Catheter tubing is seen to traverse the soft tissues of the left lateral neck and descending over the left hemithorax. Catheter tubing terminates within the left pelvis.There is no evidence for discontinuity or acute angulation.The lungs there is right upper lobe and left upper lobe linear airspace opacities likely scarring with multiple calcified lymph nodes likely representing an old granulomatous infection. The bowel gas pattern is nonobstructive. 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 A subcutaneous reservoir is identified with the arrow pointing caudally. Catheter tubing is seen to traverse the soft tissues of the left lateral neck and descending over the left hemithorax. Catheter tubing terminates within the left pelvis.There is no evidence for discontinuity or acute angulation.The lungs there is right upper lobe and left upper lobe linear airspace opacities likely scarring with multiple calcified lymph nodes likely representing an old granulomatous infection. The bowel gas pattern is nonobstructive. 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 A subcutaneous reservoir is identified with the arrow pointing caudally. Catheter tubing is seen to traverse the soft tissues of the left lateral neck and descending over the left hemithorax. Catheter tubing terminates within the left pelvis.There is no evidence for discontinuity or acute angulation.The lungs there is right upper lobe and left upper lobe linear airspace opacities likely scarring with multiple calcified lymph nodes likely representing an old granulomatous infection. The bowel gas pattern is nonobstructive. Osseous structures appear intact.IMPRESSION:There is no evidence for catheter tubing discontinuity or acute angulation.This document has been electronically signed by Latonia Posey MD on 05/09/2021 8:11 PM Name Value Range Interpretation Code Description Data [facility] Supporting Document(s) ID Date Data Source [id number] 05/09/2021 07:20:54 PM EDT [facility] CT HEAD WITHOUT CONTRAST [id number] RESU LTInterpreted by:Miky Juarez MDINDICATION: Stability scan.TECHNIQUE: Noncontrast CT of the head using axial technique was performed. Coronal and sagittal reformats were obtained. Automated dose lowering techniques and/or adjustment according to patient size were utilized for this exam.COMPARISON: CT head dated 04/10/2021.FINDINGS:There is a moderate-sized chronic subdural hematoma along the left cerebral convexity which has decreased in density but remains unchanged in size compared to the prior study. There is stable postsurgical changes related to a large left frontotemporal parietal cranioplasty. There is a left frontal approach ventriculostomy catheter that terminates in the right anterior lateral ventricle. There is unchanged effacement of the left lateral ventricle and sulci with stable rightward midline shift. Basal cisterns are patent. Encephalomalacia at the right frontal pole consistent with status post trauma.Arteriosclerosis.There is no intraparenchymal hemorrhage or evidence of acute territorial infarct. There is an area of encephalomalacia in the right parietal region which is unchanged from prior study.Paranasal sinuses are clear. Mastoid air cells are clear.IMPRESSION:1. Chronic subdural hematoma along left cerebral convexity which has decreased in density but remains unchanged in size compared to prior study.2. Unchanged rightward midline shift and effacement of left lateral ventricle.3. Postsurgical changes related to large right frontal temporal parietal craniectomy and cranioplasty.This document has been elec tronically signed by Sebastian Baxter MD on 05/09/2021 7:18 PM Name Value Range Interpretation Code Description Data Alisson rce(s) Supporting Document(s) ID Date Data Source [id number] 05/09/2021 04:32:31 PM T [facility] Name Value Range Interpretation Code Description Data Alisson rce(s) Supporting Document(s) Glucose [Mass/volume] in Capillary blood by Glucometer 106 mg/dL 70- 140 [facility] ID Date Data Source [id number] 05/09/2021 02:08:13 PM [facility] Name Value Range Interpretation Code Description Data Alisson rce(s) Supporting Document(s) [facility] FGLAAy4hXqYKLyXo41/FJLopPDPfr6HnLLabMDh8NRkiWWSiS0XfLGE8gX7gJFY7KMoRBmAsWyXpXSU2 lbm [file] AwMDAwOTYxMyAwMDAwMCBuDQowMDAwMDEyMTIxIDAw CWHnPG2CYqSsOHKsNOIbKwkkNMApMLAisg9CQPObFDCuJhD6HGQzJWBlXDVvPVdoAJJwCWIbHFO9KBMs YWTmJJ3JKmOnUIZnBEQ9XIQyDATnBOAubu2ORVGpRMCgVWdjYbBpIKPjGXMpGMszOVHeDPJ8GQd6WAIi KZGdRG8TCcOjWVPgKNU6GRKfLMOpKFRnhq2EWMXzDB UcSlD6MkLjGGMmIDMhBIirRTBkROB9EaP3IGCkKXDvIR9KFcSiEQJlMLnkZXAiFGOsERDsjd7MHJMvZU HbTxA2HpZkVRYrFGOzMBsdDGOqJXO3ZOs0AQXtWDJxNH4WGeDxNGXwQDg2AzWaFXXtXEYudb3WKONeIT KbEPjzPbYjOOAyBLJmLAkoNWVxOUQ5YCC2ICYpHRVb DT0VPmDvKHXhMdAiZUibBRXsBDVlri6VTIAuLURaBPCqFoUmDCYcPKMoYJhcFECsNPUtTUZ5MCPgMZMx WO4QYrZxCXAmYwImAtJrUAPrDXZjyg3UQPDuATJlASJvZLJpGQGlBUUcKZsgYNPxECRlURV9AHBzEIGs SS8THzToOXAbBaBjYNIcRALkCAAmmd0WLTIoPQIrTf ShVWMcSONeANTxWXbuKBCxKGViKUsbOTTnKHDsCA5LEbFrGKFmTsW0QGQuFXLlZCBtyc5HIXByYSYdZU ZtVECyXUSlAWZnXOpnVMQvQRS5NxD2FPGsTVBrFF9KMyTwCBvdDGNQVio3SDfeY0w2KOTlSI5ME3Apt9 FcWttiTPDSOQotPO4cogKoFUUpSc4IG4dOVqqlKiBb BFVbBNOtKjC1SiuyAZT2NiwkIPi3QOucFWs4QZ0tJWGuTQE5BVMqPMYuORycSHE2FpFwYZA5NmM5GXUh UyZ3XaYxDY6EOw7EPoL7SHN4eYTzRr5TWgU6TOVLIcRjEO4ADVq= ID Date Data Source [id number] 05/09/2021 01:50:57 PM EDT [facility] Name Value Range Interpretation Code Description Data Alisson rce(s) Supporting Document(s) Glucose [Mass/volume] in Capillary blood by Glucometer 71 mg/dL 70- 140 [facility] ID Date Data Source [id number] 05/09[facility] Interpretation Code Description Data Alisson rce(s) Supporting Document(s) Glucose [Mass/volume] in Capillary blood by Glucometer 69 mg/dL 70- 140 [facility] ID Date Data Source [id number] 05/09/2021 11:40:13 AM EDT [facility] Name Value Range Interpretation Code Description Data Alisson rce(s) Supporting Document(s) Glucose [Mass/volume] in Capillary blood by Glucometer 68 mg/dL 70- 140 [facility] ID Date Data Source [id number] 05/14/2021 04:07:35 PM [facility] Value Range Interpretation Code Description Data Alisson rce(s) Supporting Document(s) Oxcarbazepine [Mass/volume] in Serum or Plasma 21 ug/mL [address] [place] [address] (NOTE)This test was developed and its pe rformance characteristicsdetermined by [facility]. It has not been cleared or approvedby the Food and Drug Administration. Detection Limit = 1Performed At: [facility] [address] [place], [place] [id number] Ibarra MD Ph:[phone] ID Date Data Source [id number] 05/09/2021 09:41:00 AM EDT [facility] Name Value Range Interpretation Code Description Data Alisson rce(s) Supporting Document(s) SARS-CoV-2 RNA 2019 nCoV Real-Time RT-PCR: NOT DETECTED [facility] This lab was ordered by [facility] and reported by [facility]. ID Date Data Source [id number] 05/09/2021 11:37:42 AM EDT [facility] Service Cmnt XXX-Imp : NoneRespiratory P CR Panel : PCR ResultsMicroorganism XXX Cult : See Labs Tab for 2019 nCoV RT-PCR resultsHAdV DNA QI ARNULFO+non-probe : Not DetectedHCoV 229ERNA Nph QI ARNULFO+non-probe : Not DetectedHCoV PFG7PJB Nph QI ARNULFO+non-probe : Not NmwvyiajPIoLYY61 RNA Nph QI ARNULFO+non-probe : Not QtpbatmgZFuHFO91 RNA Upper resp QI ARNULFO+probe : Not DetectedhMPV RNA Nph QINAA+non-probe : Not DetectedRV+EV RNA Nph QI ARNULFO+non-probe : Not DetectedFLUAV RNA Nph QI ARNULFO+ non-probe : Not DetectedFLUBV RNA Nph QI ARNULFO+non-probe : Not DetectedHPIV1 RNA NphQINAA+non-probe : Not DetectedHPIV2 RNA Nph QINAA+non-probe : Not DetectedHPVI3 RNA Nph ARNULFO+non-probe : Not DetectedHPIV4 RNA Nph Q ARNULFO+non-probe : Not DetectedRSV RNA Nph Q ARNULFO+non-probe : Not DetectedB pert.PT PrmtNph Q ARNULFO+non-probe : Not DetectedC pneum DNA Nph Q ARNULFO+non-probe : Not DetectedM pneum DNA Nph Q ARNULFO+non-probe : Not DetectedB [id number] DNA Nph ARNULFO+non-probe : Not Detected Name Value Range Interpretation Code Description Data Alisson rce(s) Supporting Document(s) ID Date Data Source [id number] 05/09/2021 11:37:20 AM T [facility] Name Value Range Interpretation Code Description Data Alisson rce(s) Supporting Document(s) Specimen source [Identifier] of Unspecified specimen [facility] SARS-CoV-2 RNA 2018 nCoV Real-Time RT-PCR: NOT DETECTED [facility] Assay Performed [facility] Patients first test for [facility] 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 [facility] Patient has symptoms related to [facility] When did you start to experience these symptoms [Date and time] [Phen X] [facility] Patient was hospitalized because of this condition [facility] patient was admitted to ICU for [facility] Patient resides in a congregate care setting [facility] status [facility] ID Date Data Source [id number] 05/09/2021 10:30:37 AM EDT [facility] Name Value Range Interpretation Code Description Data Alisson rce(s) Supporting Document(s) Leukocytes [#/volume] in Blood by Automated count 6.8 10*3/uL 4-10 [facility] Erythrocytes [#/volume] in Blood by Automated count 5.37 10*6/uL 4.6- 6.1 [facility] Hemoglobin [Mass/volume] in Blood 14.1 g/dL 13.5-18 [facility] Hematocrit [Volume Fraction] of Blood by Automated count 43.4 % 4 1-53 [facility] Erythrocyte mean corpuscular volume [Entitic volume] by Auto mated count 80.8 fL 80-96 [facility] Erythrocyte mean corpuscular hemoglobin [Entitic mass] by Automated count 26.3 pg 27-33 L [facility] Erythrocyte mean corpuscular hemoglobin concentration [Mass/volume] by Automated count 32.5 g/dL 32.0-36.0 [facility] width [Ratio] by Automated count 15.9 % 11.5-14.5 H [facility] Platelets [#/volume] in Blood by Automated count 192 10*3/uL 150-400 [facility] Differential cell count method - Blood [facility] Neutrophils/100 leukocytes in Blood by Automated count 56 % [facility] Lymphocytes/100 leukocytes in Blood by Automated count 29 % [facility] Monocytes/100 leukocytes in Blood by Automated count 12 % [facility] Eosinophils/100 leukocytes in Blood by Automated count 2 % [facility] Basophils/100 leukocytes in Blood by Automated count 1 % [facility] Neutrophils [#/volume] in Blood by Automated count 3.83 10*3/uL 1.8-7 .0 [facility] Lymphocytes [#/volume] in Blood by Automated count 1.95 10*3/uL 1.2-4 .0 [facility] Monocytes [#/volume] in Blood by Automated count 0.82 10*3/uL 0-0.8 H [facility] Eosinophils [#/volume] in Blood by Automated count 0.11 10*3/uL 0-0.5 [facility] Basophils [#/volume] in Blood by Automated count 0.05 10*3/uL 0-0.2 [facility] Nucleated erythrocytes/100 leukocytes [Ratio] in Blood by Automated count 0 /100{WBCs} 0-0 [facility] ID Date Data Source [id number] 05/09/2021 10:33:44 AM [facility] Name Value Range Interpretation Code Description Data Alisson rce(s) Supporting Document(s) Bicarbonate [Moles/volume] in Serum 26 mmol/L 22-29 [facility] Chloride [Moles/volume] in Serum or Plasma 98 mmol/L 98-107 [facility] Creatinine [Mass/volume] in Serum or Plasma 0.63 mg/dL 0.70-1.20 L [facility] Glucose [Mass/volume] in Serum or Plasma 75 mg/dL 70-140 [facility] Potassium [Moles/volume] in Serum or Plasma 4.3 mmol/L 3.4-5.1 [facility] Hemolyzed Sodium [Moles/volume] in Serum or Plasma 135 mmol/L 136-145 L [facility] Urea nitrogen [Mass/volume] in Serum or Plasma 4 mg/dL 6-20 L [facility] Anion gap 3 in Serum or Plasma 12 mmol/L 8-15 [facility] Osmolality of Serum or Plasma by calculation 276 mosm/kg 275-300 [facility] Creatinine/Urea nitrogen [Mass Ratio] in Serum or Plasma 6 [facility] Calcium [Mass/volume] in Serum or Plasma 8.9 mg/dL 8.6-10.0 [facility] Glomerular filtration rate/1.73 sq M pre dicted among non-blacks [Volume Rate/Area] in Serum or Plasma by Creatinine-based formula (MDRD) >6 0 [facility] Glomerular filtration rate/1.73 sq M pre dicted among blacks [Volume Rate/Area] in Serum or Plasma by Creatinine-based formula (MDRD) >60 [facility] ID Date Data Source [id number] 05/09/2021 10:50:48 AM [facility] Name Value Range Interpretation Code Description Data Alisson rce(s) Supporting Document(s) Prothrombin time (PT) 13.2 s 11.6-14.0 [facility] INR in Platelet poor plasma by Coagulation assay 1.04 [facility] Routine intensity oral anticoagulation I NR is typically 2.0-3.0. Target INR must be clinically individualized. ID Date Data Source [id number] 05/09/2021 10:50:48 AM EDT [facility] Name Value Range Interpretation Code Description Data Alisson rce(s) Supporting Document(s) aPTT in Platelet poor plasma by Coagulation assay 22.6 s 24.0-33. 0 L [facility] ID Date Data Source [id number] 05/09/2021 12:00:00 AM EDT [facility] Name Value Range Interpretation Code Description Data Alisson rce(s) Supporting Document(s) SARS-CoV-2 (COVID-19) RNA [Presence] in Respiratory specimen by ARNULFO with probe detection Negative [facility] This lab was ordered by [facility] and reported by [facility]. ID Date Data Source [id number] 04/16/2021 12:13:25 PM EDT [facility] Name Value Range Interpretation Code Description Data Alisson rce(s) Supporting Document(s) ED Provider Note [facility] IIABSe9wCaKJQuIn25/OSWncHOMzc0CkZJgtGSw2CBcnWZOzS6SaNKJ4nX4xFRF2LKaDCrBnLnRkVnE7 lbm [file] c2SXElEmubUfH4A4XhTS4vVZXPXr5+SUfxeWTrfHtbPIPVDvYgBMnxZApxMRTCAo3J ID Date Data Source [id number] 04/13/2021 11:28:46 AM EDT [facility] Name Value Range Interpretation Code Description Data Alisson rce(s) Supporting Document(s) Discharge Summary [facility] DEYRFf3iPbFICrJg53/KQVauTJXbz1UrXXagRWj5DEhjNHQvQ8PvBJT4bZ8uNRZ9SFiQZwBiRjLaQmIk lbm PjEfpAYdTjBFIuHkwRIcHiQZhsPqxinYCyAM1ShPO2JWIqI43aAVBwJMIiG8VqAUQ1XHl+Da4PNDSgoB OaGA5IBikL5AbolroLZW0YOk6BU0GzNQ8WPawwemaT5NJIvuNVVhpdPrCsNVz1ttQe7rhjgUeLdeCkUw XDj0B317X34t1nkfelqUZs/kxPpFqzGDsd6s/6zyCS oj8Wf/8N8Mwm1Eqm8g42lOsRXlhZxVNoK4q+daN9znx5tBLCZNTxi4EyJU3SeMBAZ3lHU48syUCPdyyl osrYM8NZ+CqgkrPDxl3Wuk65f/dQqI6aRe7d+LJwpoA45gcxzT3PJ2LLakl47dgjn9cnnSRCeJ4uIppk Nkx7+Indonesian+s7xGdfxixYixaXs0J0LPuhS7g1pg8Yc+DL [file] HeStDDCfDXQiWFH9EHU0BrI0C8EgPhYwNRW+IF0g DQo+Cn4Bj4YuklR5scKaCEnkZCTgSK0RHKQUS2WVAm== ID Date Data Source [id number] 04/16/2021 04:18:29 AM [facility] Name Value Range Interpretation Code Description Data Alisson rce(s) Supporting Document(s) Oxcarbazepine [Mass/volume] in Serum or Plasma 24 ug/mL [address] [place] [address] (NOTE)This test was developed and its pe rformance characteristicsdetermined by [facility]. It has not been cleared or approvedby the Food and Drug Administration. Detection Limit = 1Performed At: [facility] [address] [place], [place] [id number] Sanjai MD Ph:[phone] ID Date Data Source [id number] 04/11/2021 11:43:37 AM EDT [facility] Name Value Range Interpretation Code Description Data Alisson rce(s) Supporting Document(s) Bicarbonate [Moles/volume] in Serum 25 mmol/L 22-29 [facility] Chloride [Moles/volume] in Serum or Plasma 102 mmol/L 98-107 [facility] Creatinine [Mass/volume] in Serum or Plasma 0.57 mg/dL 0.70-1.20 L [facility] Glucose [Mass/volume] in Serum or Plasma 94 mg/dL 70-140 [facility] Potassium [Moles/volume] in Serum or Plasma 3.8 mmol/L 3.4-5.1 [facility] Sodium [Moles/volume] in Serum or Plasma 136 mmol/L 136-145 [facility] Urea nitrogen [Mass/volume] in Serum or Plasma 4 mg/dL 6-20 L [facility] Anion gap 3 in Serum or Plasma 9 mmol/L 8-15 [facility] Osmolality of Serum or Plasma by calculation 279 mosm/kg 275-300 [facility] Creatinine/Urea nitrogen [Mass Ratio] in Serum or Plasma 7 [facility] Calcium [Mass/volume] in Serum or Plasma 8.9 mg/dL 8.6-10.0 [facility] Glomerular filtration rate/1.73 sq M pre dicted among non-blacks [Volume Rate/Area] in Serum or Plasma by Creatinine-based formula (MDRD) >6 0 [facility] Glomerular filtration rate/1.73 sq M pre dicted among blacks [Volume Rate/Area] in Serum or Plasma by Creatinine-based formula (MDRD) >60 [facility] ID Date Data Source [id number] 04/11/2021 08:14:28 AM EDT [facility] Name Value Range Interpretation Code Description Data Alisson rce(s) Supporting Document(s) Leukocytes [#/volume] in Blood by Automated count 5.5 10*3/uL 4-10 [facility] Erythrocytes [#/volume] in Blood by Automated count 5.07 10*6/uL 4.6- 6.1 [facility] Hemoglobin [Mass/volume] in Blood 13.3 g/dL 13.5-18 L [facility] Hematocrit [Volume Fraction] of Blood by Automated count 41.2 % 4 1-53 [facility] Erythrocyte mean corpuscular volume [Entitic volume] by Auto mated count 81.2 fL 80-96 [facility] Erythrocyte mean corpuscular hemoglobin [Entitic mass] by Automated count 26.2 pg 27-33 L [facility] Erythrocyte mean corpuscular hemoglobin concentration [Mass/volume] by Automated count 32.3 g/dL 32.0-36.0 [facility] distribution width [Ratio] by Automated count 16.5 % 11.5-14.5 H [facility] Platelets [#/volume] in Blood by Automated count 200 10*3/uL 150-400 [facility] Confirmed ID Date Data Source [id number] 04/10/2021 07:47:18 PM EDT [facility] Name Value Range Interpretation Code Description Data Alisson rce(s) Supporting Document(s) Bicarbonate [Moles/volume] in Serum 23 mmol/L 22-29 [facility] Chloride [Moles/volume] in Serum or Plasma 99 mmol/L 98-107 [facility] Creatinine [Mass/volume] in Serum or Plasma 0.54 mg/dL 0.70-1.20 L [facility] Glucose [Mass/volume] in Serum or Plasma 91 mg/dL 70-140 [facility] Potassium [Moles/volume] in Serum or Plasma 4.0 mmol/L 3.4-5.1 [facility] Hemolyzed Sodium [Moles/volume] in Serum or Plasma 130 mmol/L 136-145 L [facility] Urea nitrogen [Mass/volume] in Serum or Plasma 5 mg/dL 6-20 L [facility] Anion gap 3 in Serum or Plasma 9 mmol/L 8-15 [facility] Osmolality of Serum or Plasma by calculation 267 mosm/kg 275-300 L [facility] Creatinine/Urea nitrogen [Mass Ratio] in Serum or Plasma 9 [facility] Calcium [Mass/volume] in Serum or Plasma 8.0 mg/dL 8.6-10.0 L [facility] Glomerular filtration rate/1.73 sq M pre dicted among non-blacks [Volume Rate/Area] in Serum or Plasma by Creatinine-based formula (MDRD) >6 0 [facility] Glomerular filtration rate/1.73 sq M pre dicted among blacks [Volume Rate/Area] in Serum or Plasma by Creatinine-based formula (MDRD) >60 [facility] ID Date Data Source [id number] 04/10/2021 04:44:30 PM EDT [facility] Name Value Range Interpretation Code Description Data Alisson rce(s) Supporting Document(s) Consultation [facility] UBBPKy1yWvNTYhXg56/XDAdsCVCpq8AeTTqlDGr4ZNziKPIkD3CbXYC0eL5fTAR8HKwVLuKxTqYjXhZ8 lbm [file] P8LsDAB7CwZeLlZ6ZAZrBqU+LV8zJUm+Vg0Sa0OcyqX8ohZgDFmbXMK8YQ5CWGNKQ6THGc== ID Date Data Source [id number] 04/10/2021 11:44:58 AM EDT [facility] CT HEAD WITHOUT CONTRAST [id number] RESU LTInterpreted by:Salvador Vyas MDEXAMINATION: CT HEAD WITHOUT CONTRAST [id number] INDICATION: Evaluation of subdural hematoma.TECHNIQUE: Contiguous axial CT images of the head were acquired from the base of the skull to the vertex without intravenous contrast administration and submitted for interpretation. Automated dose lowering techniques and/or adjustment according to patient size were utilized for this examination.COMPARISON: CT of the head dated 04/09/2021. FINDINGS: There is no significant change in size of acute on chronic subdural hematoma overlying the left frontal and parietal lobes or acute subdural hematoma overlying the right frontal lobe. Subdural hematoma extending into the interhemispheric fissure is also not significantly changed. A ventriculoperitoneal shunt catheter that enters from a right frontal approach and terminates in the anterior portion of the left lateral ventricle is unchanged in position. There is no change in effacement of the left lateral ventricle or mild shift of the midline structures to the right. The right ventricle remains mildly enlarged but is unchanged in size. Large cranioplasty involving portions of the right temporal, frontal, parietal bone is again shown. The basal cisterns are patent. There is no acute intraparenchymal hemorrhage or evidence of acute territorial infarction. Imaged portions of the paranasal sinuses and mastoid air cells are clear. IMPRESSION: 1. No significant change in size of acute on chronic subdural hematoma overlying the left frontal and parietal lobes, acute subdural hematoma overlying the right frontal lobe, or acute subdural hematoma within the interhemispheric fissure. There are no new hemorrhages.2. No change in effacement of the left lateral ventricle or shift of the midline structures to the right. This document has been electronically signed by Salvador Vyas MD on 04/10/2021 11:42 AM Name Value Range Interpretation Code Description Data Alisson rce(s) Supporting Document(s) ID Date Data Source [id number] 04/10/2021 01:07:15 PM [facility] Name Value Range Interpretation Code Description Data [facility] rce(s) Supporting Document(s) Bicarbonate [Moles/volume] in Serum 27 mmol/L 22-29 [facility] Chloride [Moles/volume] in Serum or Plasma 95 mmol/L 98-107 L [facility] Creatinine [Mass/volume] in Serum or Plasma 0.61 mg/dL 0.70-1.20 L [facility] Glucose [Mass/volume] in Serum or Plasma 136 mg/dL 70-140 [facility] Potassium [Moles/volume] in Serum or Plasma 4.1 mmol/L 3.4-5.1 [facility] Sodium [Moles/volume] in Serum or Plasma 128 mmol/L 136-145 L [facility] Urea nitrogen [Mass/volume] in Serum or Plasma 6 mg/dL 6-20 [facility] Anion gap 3 in Serum or Plasma 7 mmol/L 8-15 L [facility] Osmolality of Serum or Plasma by calculation 266 mosm/kg 275-300 L [facility] Creatinine/Urea nitrogen [Mass Ratio] in Serum or Plasma 9 [facility] Calcium [Mass/volume] in Serum or Plasma 8.8 mg/dL 8.6-10.0 [facility] Glomerular filtration rate/1.73 sq M pre dicted among non-blacks [Volume Rate/Area] in Serum or Plasma by Creatinine-based formula (MDRD) >6 0 [facility] Glomerular filtration rate/1.73 sq M pre dicted among blacks [Volume Rate/Area] in Serum or Plasma by Creatinine-based formula (MDRD) >60 [facility] ID Date Data Source [id number] 04/10/2021 04:03:22 PM EDT [facility] Name Value Range Interpretation Code Description Data Alisson rce(s) Supporting Document(s) Leukocytes [#/volume] in Blood by Automated count 5.7 10*3/uL 4-10 [facility] Erythrocytes [#/volume] in Blood by Automated count 5.22 10*6/uL 4.6- 6.1 [facility] Hemoglobin [Mass/volume] in Blood 13.7 g/dL 13.5-18 [facility] Hematocrit [Volume Fraction] of Blood by Automated count 42.7 % 4 1-53 [facility] Erythrocyte mean corpuscular volume [Entitic volume] by Auto mated count 81.9 fL 80-96 [facility] Erythrocyte mean corpuscular hemoglobin [Entitic mass] by Automated count 26.2 pg 27-33 L [facility] Erythrocyte mean corpuscular hemoglobin concentration [Mass/volume] by Automated count 32.0 g/dL 32.0-36.0 [facility] width [Ratio] by Automated count 16.9 % 11.5-14.5 H [facility] Platelets [#/volume] in Blood by Automated count 150-400 [facility] ID Date Data Source [id number] 04/09/2021 09:50:54 PM EDT [facility] Name Value Range Interpretation Code Description Data Alisson rce(s) Supporting Document(s) History and Physical [facility] BKZMMz2jCrFRIyFb05/ARFiyDXJzm8BwDWdmDJz3FNjzZYXeD3LmXED9pA4jVOM2BTgIGtLzXgUcHrQ8 lbm [file] 1GCEGYP8ZQZn== ID Date Data Source [id number] 04/09/2021 04:58:41 PM EDT [facility] Name Value Range Interpretation Code Description Data Ailsson rce(s) Supporting Document(s) Consultation [facility] JHKRNr4eRoDDYeLt03/FVOwsOVPnd9OvIEriDEp2WTlxTMVhP7EkQOY6bZ8vJTL9RGxQJnOgJpIhXvZ8 lbm [file] ICAgICAgICAgICAgICAgICAgICAgICAgICAgICAgIC MnWUBgYSDkCUWuBVEzJNNyXMWoPDLuMMYkWIWyYNGfOBAjGOYjRTUaYORiQGHrFBXaTIQeGKZlWW6DZB AgICAgICAgICAgICAgICAgICAgICAgICAgICAgICAgICAgICAgICAgICAgICAgICAgICAgICAgICAgIC AgICAgICAgICAgICAgICAgICAgICAgICAgICAgICAg VOYoUZRsEL2SMAOzJUUpEOEfCDUdBYOjSATtPFXhKJTjAYTlSJSxZNLfXHHfVUCeXVOjGKPwFKIvLAHb MNLkPDQjBIJaJCDxNLAoXUFyLEIoUTOsOWTbNMKbSCJlTQHuFPAdOTWtNWHbEHHfGT0HEOMiXGXnFYHf ICAgICAgICAgICAgICAgICAgICAgICAgICAgICAgIC AgICAgICAgICAgICAgICAgICAgICAgICAgICAgICAgICAgICAgICAgICAgICAgICAgICAgICAgICAgIA 0KICAgICAgICAgICAgICAgICAgICAgICAgICAgICAgICAgICAgICAgICAgICAgICAgICAgICAgICAgIC AgICAgICAgICAgICAgICAgICAgICAgICAgICAgICAg JLIeZPLeASYuUV2TYUAvUSNzMEWcNTXzJVNlNXErMSLvIUAoMYMhIPSfKUZoVWSmRTWdXRMeQVJhCJHa RUCwDNZgBUCvEZKsARIpHNNgWVClXDFsKMYlZZKtJJQzRWMpPCXeLLLcDUNbJIBtUYSiXL2CYGNwBMDa ICAgICAgICAgICAgICAgICAgICAgICAgICAgICAgIC AgICAgICAgICAgICAgICAgICAgICAgICAgICAgICAgICAgICAgICAgICAgICAgICAgICAgICAgICAgIC TrDM8LXWSrNGPsJMGlWDPeHDZaUGDnHQHvWYTiOLGfJVJwYJJtCZTjNAKeAFLkWNQuODShLYMuYTEuVN AgICAgICAgICAgICAgICAgICAgICAgICAgICAgICAg IKShLFIhAEHoQBHbOR4LVICnFXAtZLNeHIXwXVWpFKOuCKDlPPEaSZQhVBMxZYHfIBXwZTOjBZDzTXDg LGDtNZPiRLKqMHZvOUQrKVUiOEPoBZGrBEDxPOMjZJDeHXMjCFUwDBRrRZQqIBZoCBEgGTUmMJ5UPWTf ICAgICAgICAgICAgICAgICAgICAgICAgICAgICAgIC AgICAgICAgICAgICAgICAgICAgICAgICAgICAgICAgICAgICAgICAgICAgICAgICAgICAgICAgICAgIC KqTYTkLF3QRA97lHSvo3H9MSElFP2txkw/Zc1WUAvinyCdyYUnEW0SQqVbBY9dbw0XExQpYA9uot2LGG jIUoBwD3A5uCJhFLKsERSSRmFhB96cCJnkGf86SIwq XFLcEpSnVOg4Sm8OOpWdI1vkRNQfXlU8WGYoWxA4MLBcNoX5MYQmNnTtYMXxKDEqGOOwEGDVFW5THpSi Z7TocH94NYNVJn9+UHibhpGlNnoNAkOeASXvf9ZhEWs0TQ6FBEBiPfrcv7CyCsRtNVDSSWvxSS1ORMW3 DDN8ZPOnEb3CTDDiG643kyFwFL3BMn7ZKcDuIU9dfk 9JXhRgJOGdPukBRdy5SVqgNH4LdBYzOJnLf90rzXs7vcNlvATJTPF5dLJ5ZKZiSYIpsDApIPFGJDFgqZ B8BwwsLvOgWTEdYRabPILHIYlUTmZnS9Wgq9HaBkE3HUDpOyGwNVdvJIFoBcV2UF40lRfhYW8XZQGxQV LwTU66OARjRNAiXn0KUf6GReAyKH3mgm4IVvPiJPFs EzzBEyj4IEmkLP0IgOTgN4DpdSTtg5hUByEqT2QQXBKmCREsSk9XFPWoDfRjTYRsGFwoAJ0zBYVpYGKA wEfztlA3FH7OYY6hnpIvSG1VCeFvNq9wPu9YOxMcI3YyP3EfJDSwQWHUAXxsMI2SWEfyIT7zSZ2Oa7TQ sYYhxZ1ozy2KPUAsPVRtYxhtey1RNjrcT8X8jXqyFD SgSxWpNLCZLQbsWK6GKJMsGYU3ICHrLgTzOTNRNiKsI31gNQ6XQ4Qyd08zWjX9EHPtVkWvDQyfGV54uA qsxnOqyHWfgShsFR8WYa4+UYzcqyVsMwyFWpnuBGIFRyDrDpICQtWoWEWrLRClPXDkWiN4WfXwVy1IFZ AwMDAwMDAxNyAwMDAwMCBuDQowMDAwMDMyMTQzIDAw UYFtCK9FYwRaWJKaFzH5CYDnUKCwGSQvms5SAGLlYYJrMCD2VuPqZTXwXTLmGAgeKTMsAFVpCOJ0AYEw WFRqZA8WIoDtDMUyWXYeIrziTSMsBAZpul1AAJUsQKDqIpbvYoAkLZMgYJLvWUuvEZVzTTI2XGB4RHHm BGEjJV4XHcIqIYCsRCwlZbMxMEYxRPFmyc2IDEMvQT SdHEG5DABbOVTbXNKaNGyoLVWlRHIxEdP6YDYhFEQqLL5CQgDtQCRjRPQ8GoJpGYIpBKXtru2MWEYoJY XvIQV8WGZeCFOnDRCwJLdpXYRpPUS7KJc7ZPHaGWSyNE5NZfApJGDxMRA7WSOuXMEwHKAxnv5OXLExIE BkKRO4TrOxMFJkZIMyBSbfLWSgDTR9KAV0GDCrTUXw GW4EVoEjDRLwODR0RACkUBYeEVNbxo6TZUHrXTKpQdd5NdTvQFGdYYQqVCgiIWNiBMN8YKv1EHIcDAVe SC2CUhEoACApRBisKlChRELwCJAptk1ZNSRkYNPhKIVoGZFzSBOlIXHiIUokFTMrDNU3GUU2NHDrEFTz YM7QQfRlKUKnDnt9OWkoZGKxGRDtuz6JJUUlRKHnWO KnQgZwPTNyZKPwWZyeVEGjIWPkXIC5RQCvUJCkSO3KOiZuQDAnYwF4FlWkKEDeZVMvet8GLXDsLULzTC faDLHgDVIwAHEkGUibYSCcWYAiUoT1VOMhPFJfKB4NCtLyKYByWtR7EMKoTSBoQXZvhb1TIVVxHEQcPj AzLXFdRESoSJMgOHvxHUSkHUFfDUT8FNEpNPYbLI8X HjCoCLOeRoIfVJgpRZHkAVIqqw6EMMWfRSEhVKZ1ZXZuDXFqUGDxTFhsUCFkOQX9ScVlNRPqZASoQW4O SkWuJSgoISUHYpb5AJhzX4a5CPKuCu4VR8Hhg9NoRlNdLGAVGBeyQA4lbzNuNXAkVt1QG0lNAkw9WRyi SaYyKyE2BLGmSuBeXRpyGCTgSwV6NPXwQSYaEZ3lZB V2DyTrKFNiCtldQRU7NvN0LEW1MzRqWgCwEoPfSOH4GuVsFI8NAq9ZCuA7AIY7bZFsGe8ELcQ4BglEMa NsRA9KOVg= ID Date Data Source [id number] 04/09/2021 11:25:48 AM EDT [facility] CT HEAD WITHOUT CONTRAST [id number] RESU LTInterpreted by:Fred Bruce MDCLINICAL INDICATION: 6 hour stability scan to re-evaluate for intracranial hemorrhage.TECHNIQUE: Contiguous axial CT images of the head were acquired from the base of the skull to the vertex without intravenous contrast administration and submitted for interpretation. Automated dose lowering techniques and/or adjustment according to patient size were utilized for this examination.COMPARISON: CT head 03/07/2021, outside CT head 04/09/2021 at 2:31 AM.FINDINGS: Compared to the most recent CT examination, there is no significant interval change in bilateral acute on chronic subdural hematomas. Stable position of a left frontal approach ventriculostomy catheter which terminates within the left frontal horn. Unchanged rightward midline shift measuring approximately 9 mm. There is persistent mass effect against the adjoining cerebral hemispheres with effacement of the cerebral sulci within the left cerebral hemisphere.There is a right frontoparietal craniectomy and craniotomy. The visualized paranasal sinuses are clear. The mastoid air cells are clear. Extraconal soft tissues are unchanged.IMPRESSION: No significant change in bilateral acute on chronic subdural hematomas. Unchanged rightward midline shift measuring 9 mm. This document has been electronically signed by Rebecca Cho MD on 04/09/2021 11:23 AM Name Value Range Interpretation Code Description Data Alisson rce(s) Supporting Document(s) ID Date Data Source [id number] 04/09/2021 08:28:50 AM EDT [facility] XR ABDOMEN AP SUPINE AND LATERAL VIEW [id number] RESULTInterpreted by:TIANA SimsROCEDURE INFORMATION: Exam: XR Abdomen Exam date and time: 04/09/2021 6:24 AM Age: 55 years old Clinical indication: Other: Shunt series TECHNIQUE: Imaging protocol: XR of the abdomen. Views: 2 Views. Upright and supine views. COMPARISON: CR XR ABDOMEN AP SUPINE AND LATERAL VIEW [id number] 03/07/2021 7:59 PM FINDINGS: Tubes, catheters and devices: Examination reveals a left-sided 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 shunt that crosses the midline in the mid abdomen and extends in the midline towards the pelvis and then extends superiorly with its tip in the region of the hepatic flexure of the colon. The tip was previously in the pelvis on the previous study. Gastrointestinal tract: There is moderate gaseous dilation of bowel loops, consistent with ileus. There is no evidence for intestinal obstruction. Intraperitoneal space: There is no evidence of free air or non- anatomic air collections. Vasculature: Multiple calcified phleboliths are seen in the pelvis. Bones/joints: There are mild degenerative changes of the hip joints. IMPRESSION: Examination reveals a left-sided 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 shunt that crosses the midline in the mid abdomen and extends in the midline towards the pelvis and then extends superiorly with its tip in the region of the hepatic flexure of the colon. The tip was previously in the pelvis on the previous study. The shunt is intact.THIS DOCUMENT HAS BEEN ELECTRONICALLY SIGNED BY EDMOND BEJARANO MDThis document has been electronically signed by Edmond Bejarano MD on 04/09/2021 8:28 AM Name Value Range Interpretation Code Description Data [facility] rce(s) Supporting Document(s) ID Date Data Source [id number] 04/09/2021 08:25:18 AM EDT [facility] XR CHEST FRONTAL AND LATERAL [id number] RESULTInterpreted by:JUNIOR Sims INFORMATION: Exam: XR Chest Exam date and time: 04/09/2021 6:24 AM Age: 55 years old Clinical indication: Other: Shunt series TECHNIQUE: Imaging protocol: XR of the chest. Views: 2 views. COMPARISON: CR XR CHEST FRONTAL AND LATERAL [id number] 03/07/2021 7:59 PM FINDINGS: Tubes, catheters and devices: A left- sided 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 shunt is again identified and unchanged in position and appears intact. Lungs: Extensive chronic fibrotic scarring and calcification is again noted in bilateral upper lobes. Pleural spaces: There is blunting of bilateral CP angles from pleural thickening/small pleural effusions. Heart/Mediastinum: No cardiomegaly. Diaphragm: There is moderate elevation of the right hemidiaphragm. Bones/joints: No acute fracture seen. IMPRESSION: 1. A left-sided 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 shunt is again identified and unchanged in position and appears intact. 2. There is moderate elevation of the right hemidiaphragm. 3. There is blunting of bilateral CP angles from pleural thickening/small pleural effusions. 4. Extensive chronic fibrotic scarring and calcification is again noted in bilateral upper lobes. THIS DOCUMENT HAS BEEN ELECTRONICALLY SIGNED BY EDMOND BEJARANO MDThis document has been electronically signed by Edmond Bejarano MD on 04/09/2021 8:25 AM Name Value Range Interpretation Code Description Data Alisson rce(s) Supporting Document(s) ID Date Data Source [id number] [facility] [id number] RESULTInterp reted by:JUNIOR Sims INFORMATION: Exam: XR Skull Exam date and time: 04/09/2021 6:24 AM Age: 55 years old Clinical indication: Other: Shunt series TECHNIQUE: Imaging protocol: XR of the skull. Views: Less than 4 views. COMPARISON: CR XR SKULL LIMITED [id number] 03/07/2021 7:59 PM FINDINGS: Tubes, catheters and devices: A left-sided 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 shunt is again noted and is unchanged in position compared to the previous exam. There is no evidence for shunt kinking or discontinuity. Sinuses: The visualized paranasal sinuses are clear. There are no air fluid levels to suggest acute sinusitis. Bones/joints: Right-sided craniectomy and cranioplasty changes are again identified. No acute fracture or dislocation is seen. Soft tissues: Unremarkable. IMPRESSION: 1. A left-sided 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 shunt is again noted and is unchanged in position compared to the previous exam. There is no evidence for shunt kinking or discontinuity. 2. Right-sided craniectomy and cranioplasty changes are again identified. THIS DOCUMENT HAS BEEN ELECTRONICALLY SIGNED BY EDMOND BEJARANO MDThis document has been electronically signed by Edmond Bejarano MD on 04/09/2021 8:22 AM Name Value Range Interpretation Code Description Data Alisson rce(s) Supporting Document(s) ID Date Data Source [id number] 04/09/2021 06:55:00 AM EDT [facility] Name Value Range Interpretation Code Description Data Alisson rce(s) Supporting Document(s) SARS-CoV-2 RNA 2019 nCoV Real-Time RT-PCR: NOT DETECTED [facility] This lab was ordered by [facility] and reported by [facility]. ID Date Data Source [id number] 04/09/2021 09:26:11 AM EDT [facility] Name Value Range Interpretation Code Description Data Alisson rce(s) Supporting Document(s) Specimen source [Identifier] of Unspecified specimen [facility] SARS-CoV-2 RNA 2019 nCoV Real-Time RT-PCR: NOT DETECTED [facility] Assay Performed [facility] Patients first test for condition [facility] 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 [facility] Patient has symptoms related to [facility] When did you start to experience these symptoms [Date and time] [Phen X] [facility] Patient was hospitalized because of this condition [facility] patient was admitted to ICU for condition [facility] Patient resides in a congregate care setting [facility] status [facility] ID Date Data Source [id number] 04/09/2021 09:22:55 AM EDT [facility] Service Cmnt XXX-Imp : NoneRespiratory P CR Panel : PCR ResultsMicroorganism XXX Cult : See Labs Tab for 2019 nCoV RT-PCR resultsHAdV DNA QI ARNULFO+non-probe : Not DetectedHCoV [id number] Nph QI ARNULFO+non-probe : Not DetectedHCoV [id number] Nph QI ARNULFO+non-probe : Not PwegzxmeSOdYKE47 RNA Nph QI ARNULFO+non-probe : Not AcapmmtpTEmSSH03 RNA Upper resp QI ARNULFO+probe : Not DetectedhMPV RNA Nph QINAA+non-probe : Not DetectedRV+EV RNA Nph QI ARNULFO+non-probe : Not DetectedFLUAV RNA Nph QI ARNULFO+ non-probe : Not DetectedFLUBV RNA Nph QI ARNULFO+non-probe : Not DetectedHPIV1 RNA NphQINAA+non-probe : Not DetectedHPIV2 RNA Nph QINAA+non-probe : Not DetectedHPVI3 RNA Nph ARNULFO+non-probe : Not DetectedHPIV4 RNA Nph Q ARNULFO+non-probe : Not DetectedRSV RNA Nph Q ARNULFO+non-probe : Not DetectedB pert.PT PrmtNph Q ARNULFO+non-probe : Not DetectedC pneum DNA Nph Q ARNULFO+non-probe : Not DetectedM pneum DNA Nph Q ARNULFO+non-probe : Not DetectedB [id number] DNA Nph ARNULFO+non-probe : Not Detected Name Value Range Interpretation Code Description Data Alisson rce(s) Supporting Document(s) ID Date Data Source [id number] 04/09/2021 06:53:28 AM [facility] Value Range Interpretation Code Description Data Alisson rce(s) Supporting Document(s) aPTT in Platelet poor plasma by Coagulation assay 23.4 s 24.0-33. 0 L [facility] ID Date Data Source [id number] 04/09/2021 06:53:28 AM [facility] Value Range Interpretation Code Description Data Alisson rce(s) Supporting Document(s) Prothrombin time (PT) 13.0 s 11.6-14.0 [facility] INR in Platelet poor plasma by Coagulation assay 1.02 [facility] Routine intensity oral anticoagulation I NR is typically 2.0-3.0. Target INR must be clinically individualized. ID Date Data Source [id number] 04/09/2021 07:12:54 AM [facility] Name Value Range Interpretation Code Description Data Alisson rce(s) Supporting Document(s) Bicarbonate [Moles/volume] in Serum 27 mmol/L 22-29 [facility] Chloride [Moles/volume] in Serum or Plasma 98 mmol/L 98-107 [facility] Creatinine [Mass/volume] in Serum or Plasma 0.59 mg/dL 0.70-1.20 L [facility] Glucose [Mass/volume] in Serum or Plasma 85 mg/dL 70-140 [facility] Potassium [Moles/volume] in Serum or Plasma 4.0 mmol/L 3.4-5.1 [facility] Hemolyzed Sodium [Moles/volume] in Serum or Plasma 133 mmol/L 136-145 L [facility] Urea nitrogen [Mass/volume] in Serum or Plasma 5 mg/dL 6-20 [facility] Anion gap 3 in Serum or Plasma 8 mmol/L 8-15 [facility] Osmolality of Serum or Plasma by calculation 272 mosm/kg 275-300 [facility] Creatinine/Urea nitrogen [Mass Ratio] in Serum or Plasma 9 [facility] Calcium [Mass/volume] in Serum or Plasma 8.3 mg/dL 8.6-10.0 [facility] Glomerular filtration rate/1.73 sq M pre dicted among non-blacks [Volume Rate/Area] in Serum or Plasma by Creatinine-based formula (MDRD) >6 0 [facility] Glomerular filtration rate/1.73 sq M pre dicted among blacks [Volume Rate/Area] in Serum or Plasma by Creatinine-based formula (MDRD) >60 [facility] ID Date Data Source [id number] 04/09/2021 07:50:00 AM [facility] Name Value Range Interpretation Code Description Data Alisson rce(s) Supporting Document(s) Leukocytes [#/volume] in Blood by Automated count 5.5 10*3/uL 4-10 [facility] Erythrocytes [#/volume] in Blood by Automated count 5.20 10*6/uL 4.6- 6.1 [facility] Hemoglobin [Mass/volume] in Blood 13.3 g/dL 13.5-18 L [facility] Hematocrit [Volume Fraction] of Blood by Automated count 42.3 % 4 1-53 [facility] Erythrocyte mean corpuscular volume [Entitic volume] by Auto mated count 81.5 fL 80-96 [facility] Erythrocyte mean corpuscular hemoglobin [Entitic mass] by Automated count 25.6 pg 27-33 L [facility] Erythrocyte mean corpuscular hemoglobin concentration [Mass/volume] by Automated count 31.4 g/dL 32.0-36.0 [facility] E[facility]th[facility] distribution width [Ratio] by Automated count 16.3 % 11.5-14.5 H [facility] Platelets [#/volume] in Blood by Automated count 164 10*3/uL 150-400 [facility] Confirmed Differential cell count method - Blood [facility] Neutrophils/100 leukocytes in Blood by Automated count 48 % [facility] Lymphocytes/100 leukocytes in Blood by Automated count 33 % [facility] Monocytes/100 leukocytes in Blood by Automated count 14 % [facility] Eosinophils/100 leukocytes in Blood by Automated count 3 % [facility] Basophils/100 leukocytes in Blood by Automated count 2 % [facility] Neutrophils [#/volume] in Blood by Automated count 2.66 10*3/uL 1.8-7 .0 [facility] Lymphocytes [#/volume] in Blood by Automated count 1.83 10*3/uL 1.2-4 .0 [facility] Monocytes [#/volume] in Blood by Automated count 0.78 10*3/uL 0-0.8 [facility] Eosinophils [#/volume] in Blood by Automated count 0.17 10*3/uL 0-0.5 [facility] Basophils [#/volume] in Blood by Automated count 0.09 10*3/uL 0-0.2 [facility] Nucleated erythrocytes/100 leukocytes [Ratio] in Blood by Automated count 0 /100{WBCs} 0-0 [facility] ID Date Data Source [id number] 04/09/2021 02:12:00 AM EDT [facility] Name Value Range Interpretation Code Description Data Alisson rce(s) Supporting Document(s) SARS coronavirus 2 RNA [Presence] in Res piratory specimen by ARNULFO with probe detection NEGATIVE [facility] This lab was ordered by [facility] a nd reported by [facility]. ID Date Data Source [id number] 03/14/2021 06:58:02 AM EDT [facility] Name Value Range Interpretation Code Description Data Alisson rce(s) Supporting Document(s) Discharge Summary [facility] RZUZJh5qVlCBLfMj78/QPEvpZFQcg5CpZHzjWFh7QZayEXTkC7YuXHE0yG8rAMK1ZBoKKmDfKmUeOpTg lbm [file] oSZmvYZiyjseXKbU1caHsG6ztQ4Eph+4HQHH+3xQdz9wnT8cg6hp9hSL5rjY61eZ/+Uf0+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/dAzsR6v [file] ICAgICAgICAgICAgICAgICAgICAgICAgICAgICAgICAgICAgICAgICAgICAgICAgICAgICAgICAgICAg ICAgICAgICAgICAgICAgICAgICAgICAgICAgICAgIC AgDQogICAgICAgICAgICAgICAgICAgICAgICAgICAgICAgICAgICAgICAgICAgICAgICAgICAgICAgIC AgICAgICAgICAgICAgICAgICAgICAgICAgICAgICAgICAgICAgICAgICAgDQogICAgICAgICAgICAgIC AgICAgICAgICAgICAgICAgICAgICAgICAgICAgICAg ICAgICAgICAgICAgICAgICAgICAgICAgICAgICAgICAgICAgICAgICAgICAgICAgICAgICAgDQogICAg ICAgICAgICAgICAgICAgICAgICAgICAgICAgICAgICAgICAgICAgICAgICAgICAgICAgICAgICAgICAg ICAgICAgICAgICAgICAgICAgICAgICAgICAgICAgIC AgICAgDQogICAgICAgICAgICAgICAgICAgICAgICAgICAgICAgICAgICAgICAgICAgICAgICAgICAgIC AgICAgICAgICAgICAgICAgICAgICAgICAgICAgICAgICAgICAgICAgICAgICAgDQogICAgICAgICAgIC AgICAgICAgICAgICAgICAgICAgICAgICAgICAgICAg ICAgICAgICAgICAgICAgICAgICAgICAgICAgICAgICAgICAgICAgICAgICAgICAgICAgICAgICAgDQog ICAgICAgICAgICAgICAgICAgICAgICAgICAgICAgICAgICAgICAgICAgICAgICAgICAgICAgICAgICAg ICAgICAgICAgICAgICAgICAgICAgICAgICAgICAgIC AgICAgICAgDQogICAgICAgICAgICAgICAgICAgICAgICAgICAgICAgICAgICAgICAgICAgICAgICAgIC AgICAgICAgICAgICAgICAgICAgICAgICAgICAgICAgICAgICAgICAgICAgICAgICAgDQogICAgICAgIC AgICAgICAgICAgICAgICAgICAgICAgICAgICAgICAg ICAgICAgICAgICAgICAgICAgICAgICAgICAgICAgICAgICAgICAgICAgICAgICAgICAgICAgICAgICAg DQogICAgICAgICAgICAgICAgICAgICAgICAgICAgICAgICAgICAgICAgICAgICAgICAgICAgICAgICAg ICAgICAgICAgICAgICAgICAgICAgICAgICAgICAgIC RqGIJoLNVxUOOlSMa1V5vqRLDbBBTrDU7aEZt5Ba9+QHzSFrErOZW2wjXzjG5YGZ5gd2AcWEhpBOPzg6 GhJJj9RA2WHMGmRZxlLQ0KEOhqng1XLEHoIQQmxWEEb1ndBiPjVAD4WVHhQvcdRB3DPUDlL7xxurFeWM UgMCBSIDcgMCBSIDkgMCBSIDExIDAgUiAxMyAwIFIg XFCbOBEMQXR1HAXxAoXxKWZfWJYbZT2WQRMlR003oeMgPX7DAy9CKjUsCB5qdg6UQVSpXDHcSokVPpu4 PCeiHM2YrHHusLX6RDWkRFFZYlSlE9wba3IlLTFrVTRYXLcxVL1Ib7XfnTSqZHe+Tc2AFL6cu4XeKZr2 LCXhZO2bxo3EFDiKMhAwA8MdvTmeJCXge3ItPXSoWS FQoT5wYQT3NIV7VDtigmIhIDWtqJqdvYxwNJGZSlYydZR4RikzBzDwMGEzTqlrDrKFQPyIAjSuO1Foq1 YnXiY4WEJrCoDoRZceZREsUlT1IM72oHrrMZ7LGEZaXJCdSU76NZY2FKSjDm4EMt8MUkZlLZ2pqs6LOS ZdZWWhQijDLei6OSikXW3WgIQjE8AtvPSre7uFOwCb B5PRXJCaUDYkRi9KCWJlQyHxZFZoFJmwBY0bATKhEWTCgDyugdX5TH7ZFR8agpTdDS1LYjAzGz4iZu5C EuNbN6DcQ6XcJAFeQDQBBAelTG6YMZgzSY5hNY1Fp9UBnYKsbH1zss0UXFWbSIVrFqqfwk6GSqaiL7P6 lWhiHAQjACHpIMTPFSsvCX9DGNTyRKR4FPU5XrGsGO MWPxCaU07jRN1IN1Mnx14jKzM5NXEpVfIgGWktFE49zPvtccZafQIesMggJA4TAf7+DQplbmRvYmoNCn jmEBYFMrBbDYhXEcZhVEPgPJBcBGQyEeK1UuXwTl6SGUXnRPKaLRBoZiVzGWXiBEZmLOmfFNAlJDI8FW LqMYDrPACrHZ2ZAzHdWGOrTOowWjAjKACzNCWmmb0Z ARWmRKXuVYZ5PnGxBPLrLQUvCLjwHEQpFYU3UNWrAGKeNMTqJY8PQsCjSUGnNWE4LIXnEWXgIJZidj6G VNChOMOhROG7RiIxPRHzBXFfYAqqHADzNZM0VGBgVTVtLYZpIA4FVrZvKLVbHGExWaopDKNnBWGxfh8V NDBiPQSxDpPbBFLfFHBkACHgIMfsPQUgJOX2HHUeBB AqMCTvRB2CCsUgWJMoFIY8QGhqJROsPMAjyc6WESStZOFgPNZ8SKWhQPIzJPPaEKcoVPYaUJQ7Zyq2DD UxQPBtNJ1MKtHbPTVqAePqGGngLFMjDNFrtx6ENWFhHSQqGTIgBzShYMOzGBVfOZxjMHByJXYxOpTdIF XrEFZbSG2DFaOhJHKcRvO6XRgbRLArZXKvwo0XTNXw FJQkKEF9VfIhCMRbOMJuFCkqJWBzMVC9ZJLcWVYaBLBhRU0EKzYgJXLsTpS3VqZzMBQoHVVrhu3FLXKb CNTdCGmfFDIeBFEsOIUuTQykVAOtIIQ7CHEeZSVfZCJfVS8XLuAkVAKiZeX4UlUxWNRpTMEydv4SQJKz IPCySyM0OvDiTMZqSXMrVOntOGTyPQH8ZeGxMEPkZQ BhNL8AFaVbDBXgGqxkPKGxNALrPDYgph1MYOAqJNAgHWBbDLSfTNJiZKIsMShrCDWnYXQ6EYmbWUBjNA JgZH0ZKnHcKRWmVFwhEHBrSQIoJCEzmw1HQYXkAMF8CeYyAvSuMHLvNQJqHFtyVGWzRUN0AwR6NVGpCR SfRD5NTbAbRDJqQJidESQhUJYrDMXnms2CEYKxPSK8 VLA6SKIwCOZsAHBgXMkoKAZvSRU9CiVfZFSsKXTmCY5GGwXvRNBhEFs2BtXuOFXcZUCopj3BSDFmJNW7 EQQrSXMrKXYtHQRmOCzzMOUhQHS2DUR0UUTtNUHfDH5VFgFgMFGrQQC8KMQmILIqWEHdlj8SCHFlMQF5 PGc8GLFjIGEjOWDuKVgaUZMeIKV8CjZ9OPWaUESrAX 0ZQeXnFEBrPZYnBVUoTNLpOICgxr0YWCJbQDJ1LPrrNBIeZAXhLVJbOQywGQHjAFI3RyP6UTAgINEyFV 3HTmXpIDUsQZkvDAXmRFEzOCVafj6UEZThFCR8KgAsOgEtYVRhWWCbVYp0qlKuaOPxAZn3SD1JC3Bkzu LlZAvSCu6Co142ZQC3OKCrYr5QX8qpGx1xPBXyGNPH Ek2BNZn7RtT2XoW3Y2UwYhulGURdVCYzM2JnHJCvIBIeWwBqZMS+NAz0NvGwVAHuXoIcSiSvCQDgDXOx IwUmTrDyKZM2TRO8Pi2mETUAEg5+CZsvrJXzpJwiCPLWDsC8JxucXAhbSLBSIo5T ID Date Data Source [id number] 03/09/2021 11:10:05 AM EDT [facility] Name Value Range Interpretation Code Description Data Alisson rce(s) Supporting Document(s) Progress Note [facility] XGMYTj1kSaRRFxZx64/DDIyyZFPgb9XuKAsyWEp9LOnoXZAcN3VpJKP4fI0pUVS0NUnYRnHpOmJnOeS0 lbm [file] JZ9WYb0AAvV4XKL0nUNiKn0KAPUeASyFOvGpXJ9MTKl= ID Date Data Source [id number] 03/09/2021 10:22:08 AM EDT [facility] Name Value Range Interpretation Code Description Data Alisson rce(s) Supporting Document(s) Progress Note [facility] PLVAGj5bEtQXObGz86/TGJukLIJkj7GgGFitEPd4OQgdSTJoE9UbUPX4gC6fWHO5FVzOOrWdDzOvCrO4 lbm [file] XMVoNGAmIIq9IGq3NmUiWI4WTb8TCbC8FYJ8lPKkEp0QOUF4IMPWQqAxXF7HVVr= ID Date Data Source [id number] 03/09/2021 10:01:17 AM EDT [facility] Name Value Range Interpretation Code Description Data Alisson rce(s) Supporting Document(s) Consultation [facility] GNAQXz8sVaWMRaKl20/PSSqbLZPpx2LcTSpaKAt0EBgbCVKgB6YwFYV7pV2cHYO6FIyYIvOxRtXoQoU0 lbm [file] qlTNX9TZ8ECXSTG3PPJf== ID Date Data Source [id number] 03/09/2021 08:25:50 AM EDT [facility] Name Value Range Interpretation Code Description Data Alisson rce(s) Supporting Document(s) Bicarbonate [Moles/volume] in Serum 24 mmol/L 22-29 [facility] Chloride [Moles/volume] in Serum or Plasma 99 mmol/L 98-107 [facility] Creatinine [Mass/volume] in Serum or Plasma 0.57 mg/dL 0.70-1.20 L [facility] Glucose [Mass/volume] in Serum or Plasma 90 mg/dL 70-140 [facility] Potassium [Moles/volume] in Serum or Plasma 3.5 mmol/L 3.4-5.1 [facility] Sodium [Moles/volume] in Serum or Plasma 136 mmol/L 136-145 [facility] Urea nitrogen [Mass/volume] in Serum or Plasma 5 mg/dL 6-20 L [facility] Anion gap 3 in Serum or Plasma 13 mmol/L 8-15 [facility] Osmolality of Serum or Plasma by calculation 278 mosm/kg 275-300 [facility] Creatinine/Urea nitrogen [Mass Ratio] in Serum or Plasma 9 [facility] Calcium [Mass/volume] in Serum or Plasma 9.2 mg/dL 8.6-10.0 [facility] Glomerular filtration rate/1.73 sq M pre dicted among non-blacks [Volume Rate/Area] in Serum or Plasma by Creatinine-based formula (MDRD) >6 0 [facility] Glomerular filtration rate/1.73 sq M pre dicted among blacks [Volume Rate/Area] in Serum or Plasma by Creatinine-based formula (MDRD) >60 [facility] ID Date Data Source [id number] 03/09/2021 10:43:40 AM EDT [facility] Name Value Range Interpretation Code Description Data Alisson e(s) Supporting Document(s) Leukocytes [#/volume] in Blood by Automated count 5.0 10*3/uL 4-10 [facility] Erythrocytes [#/volume] in Blood by Automated count 5.22 10*6/uL 4.6- 6.1 [facility] Hemoglobin [Mass/volume] in Blood 13.7 g/dL 13.5-18 [facility] Hematocrit [Volume Fraction] of Blood by Automated count 41.8 % 4 1-53 [facility] Erythrocyte mean corpuscular volume [Entitic volume] by Auto mated count 80.2 fL 80-96 [facility] Erythrocyte mean corpuscular hemoglobin [Entitic mass] by Automated count 26.2 pg 27-33 L [facility] Erythrocyte mean corpuscular hemoglobin concentration [Mass/volume] by Automated count 32.6 g/dL 32.0-36.0 [facility] Erythrocyte distribution width [Ratio] by Automated count 14.7 % 11.5-14.5 H [facility] Platelets [#/volume] in Blood by Automated count 195 10*3/uL 150-400 [facility] Confirmed ID Date Data Source [id number] 03/08/2021 11:55:37 PM EDT [facility] Name Value Range Interpretation Code Description Data Alisson rce(s) Supporting Document(s) Progress Note [facility] HBRAGm7bYhKHLiKk86/NIZawVIFjv2QbQKckSUb2VSqiBQBsT4HiACA2qH9mECL4FCbRTpJwIpBsSyT9 lbm [file] CiOnLPY0SUTqAivbMSStCoK9TPX+OB6yEVf+Ay9Nn0FlbuU0gjTjJMgnRfrtQv3PQVFNS5JIZx== ID Date Data Source [id number] 03/08/2021 11:54:32 PM EDT [facility] Name Value Range Interpretation Code Description Data Alisson rce(s) Supporting Document(s) Consultation [facility] ZSCABq4fQpDXKcJq12/LPUtbAEEsy0WpVOxkZYj0PWoeGTPwX8BwXQL0sU5rYTJ1IVfYFbQgCnZePbM1 lbm [file] z2UCZyV7WmyVTjcjErk+mwgV/[facility]/NbLL1t92VDPh7 [file] ICAgICAgICAgICAgICAgICAgICAgICAgICAgICAgIC AgICAgICAgICAgICAgICAgICAgICAgICAgICAgICAgICAgICAgDQogICAgICAgICAgICAgICAgICAgIC AgICAgICAgICAgICAgICAgICAgICAgICAgICAgICAgICAgICAgICAgICAgICAgICAgICAgICAgICAgIC AgICAgICAgICAgICAgICAgICAgDQogICAgICAgICAg ICAgICAgICAgICAgICAgICAgICAgICAgICAgICAgICAgICAgICAgICAgICAgICAgICAgICAgICAgICAg ICAgICAgICAgICAgICAgICAgICAgICAgICAgICAgDQogICAgICAgICAgICAgICAgICAgICAgICAgICAg ICAgICAgICAgICAgICAgICAgICAgICAgICAgICAgIC AgICAgICAgICAgICAgICAgICAgICAgICAgICAgICAgICAgICAgICAgDQogICAgICAgICAgICAgICAgIC AgICAgICAgICAgICAgICAgICAgICAgICAgICAgICAgICAgICAgICAgICAgICAgICAgICAgICAgICAgIC AgICAgICAgICAgICAgICAgICAgICAgDQogICAgICAg ICAgICAgICAgICAgICAgICAgICAgICAgICAgICAgICAgICAgICAgICAgICAgICAgICAgICAgICAgICAg ICAgICAgICAgICAgICAgICAgICAgICAgICAgICAgICAgDQogICAgICAgICAgICAgICAgICAgICAgICAg ICAgICAgICAgICAgICAgICAgICAgICAgICAgICAgIC AgICAgICAgICAgICAgICAgICAgICAgICAgICAgICAgICAgICAgICAgICAgDQogICAgICAgICAgICAgIC AgICAgICAgICAgICAgICAgICAgICAgICAgICAgICAgICAgICAgICAgICAgICAgICAgICAgICAgICAgIC AgICAgICAgICAgICAgICAgICAgICAgICAgDQogICAg ICAgICAgICAgICAgICAgICAgICAgICAgICAgICAgICAgICAgICAgICAgICAgICAgICAgICAgICAgICAg ICAgICAgICAgICAgICAgICAgICAgICAgICAgICAgICAgICAgDQogICAgICAgICAgICAgICAgICAgICAg ICAgICAgICAgICAgICAgICAgICAgICAgICAgICAgIC SzGYWdDGDgKKYwECUsXXVpARUrVJMwQMWpYHLaKSEjIUDpJKQdWJEhTQMoVVVbHHq9A0nsIEBrAPJtFX 6kJZo9Yq0+FVrSBmDhLBV5atVnxL4QGD3rf3DbAOneMWFtr6CbMIh1SW4CAOJuPYpiGV4ZWEbwev8LLR EzFWVqfQOXw3eeHkXkZFH3DEJmYolzTJ4IUHExS2zh tfUnUXXtDBHUVVaqUSOYRPhbBOWAKLCkVMXlVzSnQnYsEINyFCDuTNZYSC3IYePzX7YpeL17CCNZZc2+ GHnasxZtNhiZHmL5GAThf3KpSKm2WM4GHBKjWhepu7YpMmTwLJIUMWclNA1ZPKE7TXR0QGWbEj8NJBRf O873vfWfQN5TEv2MUpAoAT7giz7NYqQfPTGqVlwZJh e4JSzeGM9EaUCgZVuJu87zfBg6ibSfrZKTODKcZXR2GXqyiVTuSL0VRwTnJGNoRd09WtZhTtShFMb5RB DpPI8cRJxuAH7UUKS1KYapXENqIPFcK6aJJkYbBQRpInQfwGfsAR7HEcElC8EbpkCeoLKyWPPfPLBRMr 4+MAnahsKqEvdEJwZ7MXNii7WaPHx9HV2FPONcOSdb XL7WDWZpsG8cBRzmCR1LUwKdYgQhGSCMQvRhI45hsQEjCUd1M4CuHgGeOWKpMxgvYWTtOUvvDdEvSORn WyBdDQogID4+ID4+MScgTE9MAWugecWcYWKkUc3ELJVoMUErKS6zQXBkWTFcX5M9iWzvYJXGAeNlW4il nqwxTH2yQWVnE392qUcekrJzXSP5OUUqXm3IXABuXJ Z5DZJopOFiYcLjAHARGUivCR9LgOFtKXF4bN8cCFsyMREbTWAeR5hSNeRkpSxpNE45qJaroqXswPMmQP o+Iy5GFI4wc0GwKCg4ipTrQKhjMBB2NQlgJPRaLRKnRYFsYBY4RCM6HOTSKyNpWCUvJSNsSTllHNPmJB Ziet6TUHGoLZGkPvG8MhVhNLAjNKHrSQmsSVPoQNA9 JEK3YXUaYCSiER1YVjSfJEVlURUnGXczSLGpBJLjod6GRIJmOMDiCSJuChCjVTDpYBRvHAkpCGKoMNZ9 JcVgOJVrFDPvLB6SOcNnQAKcRZr0GpGsEYWjNLUzan3VBPDxCVTkObi0OkOlQFFrHENiHWswBENnUFTa AEa1CGHdDBBaYS1NOeRyZTIjRGPeUCbyCYKrWANekf 4NIYQfCTDmEwAjNTZqCTZoJOZbJWsrAPWrFGKgQIN1DSUnQJKnUW0DIhCkMWSlCWG9RFVsXXMyILGrln 7OQUXoUUWqGcp5HmUlMQWkABLmWSaqNJVvABA9TUKtCQNyPUIoID4QEwBxWYXoTIg2QNsdAIZwJJAqbb 8SYRQjPWKcRWA1YZMbXEIlQVPrIApzSQMpRVL2EKK6 MIWvNAKuEZ7ORjMhBTJaVbOcUKrbLXGhUULzjs6HHEVnMSRmAOPgKgFfANNoNJKlDRkcCMBkDMAePqG3 NJKhYUHhHE1KUmVjOKWaEbMqJImbPMAgPKLwhr6CRZIdVPYkWlR1AqNpXBPrFACiDCqzDJFlOJMzWZY2 SYFeCDKfKF1XHqUkFGRdYgU6RpsuPMJiBLDkmq7QPU IzHBEzOOAvBoBcZPJvYKMvVQkiXMGdSBO2NOCqKQUnVJEmBK3TDtCeGWIpVtA8OUseRYNgYAFbty0GQM PcAGFxTXu0BTMpIETkKCSsLKosDPPrJNF5ONU2RUXvSAXfAH1MQmDnLMLwTkY5XvhwNIRxDTGadc3XJL QlRKJbJiV7MgTbGYYvOCNcOLidFUIfUSE6QpL8NSMc NNCaOS2DReVrOTHoPvR0NnrjDDEdDWLjku4DFKImPGZiBHN7FQOnMFFvCGWzNHeuRKEhBVN3WvA5MFHt JOBeQI1ZJiDxDFJhOls4EyIgDXGaDHNkkg0KeKAezDrxce6CICxOCq5JzBfeBRB7MBvtAp6isSWsBkUj ZXONGt7SopZnQMMoKVUPFZogSTMhQJFzCIW8JxS1IY I9ZGQkNEY4AIHcFFHcCpPwI3UdIYyqUvB0KeMkDiK5Zor0EWXkGLTvQhNlHSD9JJJjLmK5YzK2USU+IF 0gDQo+Ii9Ns2OpapV2cqHeZIpqEXwkCV8OYVZWH2HWTo== ID Date Data Source [id number] 03/08/2021 05:36:44 PM EDT [facility] Name Value Range Interpretation Code Description Data Alisson rce(s) Supporting Document(s) Progress Note [facility] GWIBGk8pJaUFLcNw73/YJDctBSEoa3SiELqkLOt1XFtbZGOcA2KlOZQ6tL3fESL0LGkRYxUsMsBzLtU5 lbm [file] ICAgICAgICAgICAgICAgICAgICAgICAgICAgICAgICAgICAgICAgICAgICAgICAgICAgICAgICAgICAg ICAgICAgICAgICAgICAgICAgICAgICAgICAgICAgICAgICANCiAgICAgICAgICAgICAgICAgICAgICAg ICAgICAgICAgICAgICAgICAgICAgICAgICAgICAgIC AgICAgICAgICAgICAgICAgICAgICAgICAgICAgICAgICAgICAgICAgICAgICANCiAgICAgICAgICAgIC AgICAgICAgICAgICAgICAgICAgICAgICAgICAgICAgICAgICAgICAgICAgICAgICAgICAgICAgICAgIC AgICAgICAgICAgICAgICAgICAgICAgICAgICANCiAg ICAgICAgICAgICAgICAgICAgICAgICAgICAgICAgICAgICAgICAgICAgICAgICAgICAgICAgICAgICAg ICAgICAgICAgICAgICAgICAgICAgICAgICAgICAgICAgICAgICANCiAgICAgICAgICAgICAgICAgICAg ICAgICAgICAgICAgICAgICAgICAgICAgICAgICAgIC AgICAgICAgICAgICAgICAgICAgICAgICAgICAgICAgICAgICAgICAgICAgICAgICANCiAgICAgICAgIC AgICAgICAgICAgICAgICAgICAgICAgICAgICAgICAgICAgICAgICAgICAgICAgICAgICAgICAgICAgIC AgICAgICAgICAgICAgICAgICAgICAgICAgICAgICAN CiAgICAgICAgICAgICAgICAgICAgICAgICAgICAgICAgICAgICAgICAgICAgICAgICAgICAgICAgICAg ICAgICAgICAgICAgICAgICAgICAgICAgICAgICAgICAgICAgICAgICANCiAgICAgICAgICAgICAgICAg ICAgICAgICAgICAgICAgICAgICAgICAgICAgICAgIC AgICAgICAgICAgICAgICAgICAgICAgICAgICAgICAgICAgICAgICAgICAgICAgICAgICANCiAgICAgIC AgICAgICAgICAgICAgICAgICAgICAgICAgICAgICAgICAgICAgICAgICAgICAgICAgICAgICAgICAgIC AgICAgICAgICAgICAgICAgICAgICAgICAgICAgICAg ICANCiAgICAgICAgICAgICAgICAgICAgICAgICAgICAgICAgICAgICAgICAgICAgICAgICAgICAgICAg ICAgICAgICAgICAgICAgICAgICAgICAgICAgICAgICAgICAgICAgICAgICANCjw/aROmF0whmJHvvrO4 B8xcLb0NFe5GWT6sb3IcCVTvFTxjusObRbkWLeEdKR VnAxyLSlb3GUfmNF5ErOBcP9KgP2EjGEetUI8WIUDeJUAmqDRiRZWdHGIsIlL6FACdEPjhAJ3AxSLnPK jnBSXnBYBwKY4DWPLkL850oxUfRU5TYx5VPeQlRF1khz8TQJRvHRRbGdrSJos5BZqbEK4KvZIskDMcUB JzXZJXKmIvA0euv5YrGXQuDZHYPAinVP7Io6NtgYPt DQo+Jx1LKF0ws2BxCBpzPETdCS9enp1WZIsJWnFmC4AkqYudXCIto4emDZBjIY9rtEJcPIB1LVqgzo4a NbAlDOvkSfjagC6xwhHrCEGUVIP7LVYrBu2fXPMbRRU2EbZfJHVPYE9ZWQGxSNKoxQHfZEGgJOOOOT1Z RYtsHDA1IKTrrcIlkOPvAQliZS5UANEltzUjLJVhGC BSDQo+Qq6VFI7uc6AiZDvkVzZsJZ8mnd6ZVKxQReHaI9O1zIUlS7Z4SPypSk8YXANqSQPvIPIlQPHEUB qnHO3YXT7oxpK1NS4KyTOpOIZiVMHffTIvKRx1P37lcIDsARfoNK3GHXP+Patricia+Su3OFTXtJGXuBQAuXv RaAZWFNjZgZ0FcV7CSg7KqR5DkRP30kFqdvhOfUIgn IK8WNA2yXVSvIDEDKU3BmJNljH1nlyJnFLGvLUDUGsBkX45tdYKvAXPsYPDmHBCkAq3WBDZqQ6MrmiLy yVtkrzSwCVTgQNFGCF8JDGnpolRqjNWmtOqnOE60cXsvVN1LWe4OChSbWD4xho0KiLUxIj7SAGLvNd6D ZLOmQIWxHERyHPL7HYKbCiPbTSnoWWNoGNLmQVP8ZU QcVKBsWQ6BCsLxEHNmYZKnQEClXDRfUNHohz9BATToBUNdKdfkQJFyITWpIIQtFNgeISYoNUGzHNX7YR IbGWThDN0BNfVtXBXyHNUxNJIeADYjHCTikm1VQMSrIIJdHqU1AOIfGOJvXYGwNNcoKEIlENMrTlP4SS GzVPPpWU0DIkKvVXDlGAH3LIDmQIUwDIIpla6XKXSy SENgMaisDtRlQQEiERIxCNptEHQvVIY3AcafYDIxXRCtDK9LVvPhUVXdYGW1TLOvRNHwTMJsvb6YLQPy XMQfUKU3DCKeIANoRSEwZJfgFHAiTNF9MBx5TDXcVMMvEY9CTxTlJMHqGUO2DKFjPIIrCHEaao4TIODy KQFfLcn1SoItQDRtCOHvKMavWEPzYRJ8KVW0UFTrRX QpCO8DRoYhBWnyGJGFIhx1DGssH6e1RMHsXi1RC4Idp1DsHFBcTAVRXWttYB7ajhZfKLDxYi1YX8zMXm jsLaP0PwyeKAC0VIYdTfp7XqDqIPd6S9BhUjT5Q1P3Gm4pKWIuHbSeS1AhQZVfXIReLROkOsQnACC4HT ElUuE8UVtvKwIyHX1SYb5GRuF2SEG5bRKdYd0TWvW1NJ4QREUUC7GZQh== ID Date Data Source [id number] 03/08/2021 05:32:04 PM EDT [facility] Name Value Range Interpretation Code Description Data Alisson rce(s) Supporting Document(s) Consultation [facility] ODAZBj3pIuATYaCe90/VEEcjRIEil9JwKZocZYw4PMmqXXEiI0ZsEMI1oO5iEDD0FAsXMyStFpJxMsW6 lbm [file] FRA5Y3O0ByV9RkMjRbYeCwTaH0UjETT6NFSrAF8w XSANCj4+CNtuhQQzaLapAZIEJzy3IXRELuLuJN9CBFr= ID Date Data Source [id number] 03/08/2021 12:10:58 PM EDT [facility] Name Value Range Interpretation Code Description Data Alisson rce(s) Supporting Document(s) Progress Note [facility] MQCQVb2iKbEMJeFl27/FZNlqOKNyt9HlFDmsSXt3UMlrUBThJ9IqETK9nX7sENO0JCrFWkKpOqIxHuP0 lbm [file] AgICAgICAgICAgICAgICAgICAgICAgICAgICAgICAgICAgICAgICAgICAgICAgICAgICAgICAgICAgIC AgICAgICAgICAgICAgICAgICAgICAgICAgICANCiAgICAgICAgICAgICAgICAgICAgICAgICAgICAgIC AgICAgICAgICAgICAgICAgICAgICAgICAgICAgICAg ICAgICAgICAgICAgICAgICAgICAgICAgICAgICAgICAgICAgICANCiAgICAgICAgICAgICAgICAgICAg ICAgICAgICAgICAgICAgICAgICAgICAgICAgICAgICAgICAgICAgICAgICAgICAgICAgICAgICAgICAg ICAgICAgICAgICAgICAgICAgICANCiAgICAgICAgIC AgICAgICAgICAgICAgICAgICAgICAgICAgICAgICAgICAgICAgICAgICAgICAgICAgICAgICAgICAgIC AgICAgICAgICAgICAgICAgICAgICAgICAgICAgICANCiAgICAgICAgICAgICAgICAgICAgICAgICAgIC AgICAgICAgICAgICAgICAgICAgICAgICAgICAgICAg ICAgICAgICAgICAgICAgICAgICAgICAgICAgICAgICAgICAgICAgICANCiAgICAgICAgICAgICAgICAg ICAgICAgICAgICAgICAgICAgICAgICAgICAgICAgICAgICAgICAgICAgICAgICAgICAgICAgICAgICAg ICAgICAgICAgICAgICAgICAgICAgICANCiAgICAgIC AgICAgICAgICAgICAgICAgICAgICAgICAgICAgICAgICAgICAgICAgICAgICAgICAgICAgICAgICAgIC AgICAgICAgICAgICAgICAgICAgICAgICAgICAgICAgICANCiAgICAgICAgICAgICAgICAgICAgICAgIC AgICAgICAgICAgICAgICAgICAgICAgICAgICAgICAg ICAgICAgICAgICAgICAgICAgICAgICAgICAgICAgICAgICAgICAgICAgICANCiAgICAgICAgICAgICAg ICAgICAgICAgICAgICAgICAgICAgICAgICAgICAgICAgICAgICAgICAgICAgICAgICAgICAgICAgICAg ICAgICAgICAgICAgICAgICAgICAgICAgICANCiAgIC AgICAgICAgICAgICAgICAgICAgICAgICAgICAgICAgICAgICAgICAgICAgICAgICAgICAgICAgICAgIC AgICAgICAgICAgICAgICAgICAgICAgICAgICAgICAgICAgICANCjw/sSVzY9slqDPdsuC7G9xyGz1LHe 3JUS0dp1OqVBBcPRkmklJzNkkOUaNhZWUaVqaHVbu4 FKxmQT8JcECtO3NdH8MvMYnxMB5XJJQaJTUirLPmFACnXJPgHiG8ONAeWEqtED2DaRCzZGnbWADnSORj CaVhLDYfSWEkVPFrFM9UMWMgM088fqMaBw8RMv5NElEvWL8uvr6GHaCoQRRzOsmGRue5LOkuAH5SvOVp iKEuBzAmHXIFSsBlY2whj6IhBnVxDHCUTMyiAS2Vs2 VudCAxDQo+Ju4PRE6nw5XnCBmaCxTuIO1agc0RVEjCTpRbV6QpfDmzSMMbl3deZDRnTG7vfQSiKGZ3QP kxW26bJM2jn8PvDLPzXM6ZFDB5PXXgIr2wRNZdHHH9WwWiWVXAKA3SJCZxIAMnlWUkVKDrBCBWOT4RTO haZGD8ELDmnvDwtHCeFXybRO2MJMIcipTpEfQdBVQI DQo+Gl6SOT1hr8ZjMVbwZeSsNU5hfi7RPMdDRaMhA2M5kKBpE7T3YMcqAf9JRXQgFKCcNGysWLXLUHiz ZP6DOW0yhnO6HN9WrTQvRUQuGXXjsRQzSZx9N76ylTTiNSpuIU9QAUD+Patricia+Iw1NALKqMSNfESTpTvFw IBMOHkMaO2LkZ5WZz1GtA3CtSB46eNmtvkFnBQoeUW 5FMP1yHVEcDEBQJG1BiEYamY1pckAxMRWrSEKPHnYqO89uyCIfZNKkVKTlTCRaLd2FAFWhR8HqwyIhnP bqsaKfWJRmEVKALQ3FUSqlljDynLXhxWdgGV80oWyfET8GXe4YCkPqYN8dym0QiXPlIb5FVOJwIZ9QSQ UoJPFpCCTbFLB9SYGaAtJdSFpxJIGbGVVwRCM0KHRf CQHoLF4JGzWvTAAyUVY0FHEnOQReOJZjgr9USUOhCOYzRaZhLGQjRPWxPUMlPGrqMSHeLBEpARR4BXHz HOXpVC5CAlKpQWCdRAD3JHZnQAKrWEWibf1ZAOCeUMSiZbVeKrYeKPDuMOGlHFaaIFGvRHJ5KeQ1GZJh YLNcZK6UHdXsYTIaPBI2NiCoJFToKXKfew4QDMLnUN IyZvZvSGZrFIDdWDTtSDpjRHQuXPU0NCViDLGlTECrGI9DDuNyUPRmBAm5DKCpAXFsRZAsdj3KHGFqLN JoCEv1LDYoDNYpQKIgPPsgVMHnTQJ6GMjbOCImPVDrYK3HWwJsPFBaPNNhNrUlWBYcDKEscm6ZPTUdBP AxMDMzMyAwMDAwMCBuDQowMDAwMDEwNTIxIDAwMDAw GB5XIdPzGZMyGHR0ENJaKFVuHWDaut8MZWSlBQDtKXI5OSSnIQFlMYYcZWtjHSWnFXTpAMPvIKGzGDCy MQ6REgXhHYOyQASgWHEsPICsBJFqrt1AZUAnXBNzOouoZENoKYMlQUJxWNtsFQWgPIBaCYE4NRPbPYXc MY9QUtVqUWUcZOB3PAZdEHYlDORknk8TvZClaStuqa 0EYQrFEp0YsFdwGKQ6WJuzKr4hoVOwFcAsLBYETp7TddFgQXLpZSQEVNupVLJpAPR5PoZaUSOrLLOqTf QsKrryQVNaBXIjCvR4IBZkMfE8OxZ9YAIgPKW5AyNhUIWtBUPkZJEiEpI0E5ZjSYo2AsE5TVy+IF0gDQ o+Xu1Tw7BbuuP9wnYtLHpcPLZ0Wm7QNZVYM1FNBk== ID Date Data Source [id number] 03/08/2021 12:08:38 PM EDT [facility] Name Value Range Interpretation Code Description Data Alisson rce(s) Supporting Document(s) Consultation [facility] GPBVIn1zIsQRUjHl22/WKRjpKIRpj0DqJNxaQLk3QZuhWCLdG0YeJKI0mB6lPGO8OUaPLxRfYxRbOkV4 lbm [file] SLrriLZmfDntQAAMAzH0PKKiHMqgTGDFNu2T ID Date Data Source [id number] 03/08/2021 10:42:14 AM [facility] Name Value Range Interpretation Code Description Data Alisson rce(s) Supporting Document(s) [facility] NUFCLk9bArAAQhBlj2TfHzRrUOGqIS9hoyn9H4W0uROuZ3MpfTAad5wuT5TrO4ZrXWBmMUMTPW8ZxEDg jb2 [file] biAKMDAwMDAwMTczNCAwMDAwMCBuIAowMDAwMDAxNT A5KCTlHMPqKA5wUuAdCPGoONEwDBXwRfJ4WvXaVlAHbBYyqAnkidn9RWvzQ2h9VBPiZMtzYU0dnoUzIU KbZwxeKc0ykNB8WNYiQqgPTy7Iv8WxvoA9tbKzMwpbWOm8LrYfAB5S ID Date Data Source [id number] 03/08/2021 01:10:41 AM EDT [facility] Name Value Range Interpretation Code Description Data Alisson rce(s) Supporting Document(s) ED Provider Note [facility] IKECOq6kBfOFClIv16/TDTiaAQLoq2KkZPhvYGt3EWrePCAgN2WpJGS9mO5kKLR1ZLyLSnKjJkDcNtG6 lbm ZdJqaIEdKgKYEuYrrCHnWnKMxpVzmylRXaCV2BvMF1MSZnY64gZWMvVCNfD4SaGSA3OLG+Le7OWAPayM BxTI8AXjjF6S6lr1hBUB5uTV/QLpgdpqRpHLbP9XysP97yxurZ8SvrL9vNXWMduIAVPkbpP68Rplx9zB hBiOMBwlcbAyY4l+6XXSyVqv/3da2j5LE0Cv67/xpb i81l5n6/UQ+3+eb+ejbo8VpnbBRVG64wRN35+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/RUUQd75LVHNbYaGA1jbjOU1n47QwHz5Wf7IK4s2 [file] ogICAgICAgICAgICAgICAgICAgICAgICAgICAgICAgICAgICAgICAgICAgICAgICAgICAgICAgICAgIC AgICAgICAgICAgICAgICAgICAgICAgICAgICAgICAgICAgICAgICAgDQogICAgICAgICAgICAgICAgIC AgICAgICAgICAgICAgICAgICAgICAgICAgICAgICAg ICAgICAgICAgICAgICAgICAgICAgICAgICAgICAgICAgICAgICAgICAgICAgICAgICAgDQogICAgICAg ICAgICAgICAgICAgICAgICAgICAgICAgICAgICAgICAgICAgICAgICAgICAgICAgICAgICAgICAgICAg ICAgICAgICAgICAgICAgICAgICAgICAgICAgICAgIC AgDQogICAgICAgICAgICAgICAgICAgICAgICAgICAgICAgICAgICAgICAgICAgICAgICAgICAgICAgIC AgICAgICAgICAgICAgICAgICAgICAgICAgICAgICAgICAgICAgICAgICAgDQogICAgICAgICAgICAgIC AgICAgICAgICAgICAgICAgICAgICAgICAgICAgICAg ICAgICAgICAgICAgICAgICAgICAgICAgICAgICAgICAgICAgICAgICAgICAgICAgICAgICAgDQogICAg ICAgICAgICAgICAgICAgICAgICAgICAgICAgICAgICAgICAgICAgICAgICAgICAgICAgICAgICAgICAg ICAgICAgICAgICAgICAgICAgICAgICAgICAgICAgIC AgICAgDQogICAgICAgICAgICAgICAgICAgICAgICAgICAgICAgICAgICAgICAgICAgICAgICAgICAgIC AgICAgICAgICAgICAgICAgICAgICAgICAgICAgICAgICAgICAgICAgICAgICAgDQogICAgICAgICAgIC AgICAgICAgICAgICAgICAgICAgICAgICAgICAgICAg ICAgICAgICAgICAgICAgICAgICAgICAgICAgICAgICAgICAgICAgICAgICAgICAgICAgICAgICAgDQog ICAgICAgICAgICAgICAgICAgICAgICAgICAgICAgICAgICAgICAgICAgICAgICAgICAgICAgICAgICAg ICAgICAgICAgICAgICAgICAgICAgICAgICAgICAgIC AgICAgICAgDQogICAgICAgICAgICAgICAgICAgICAgICAgICAgICAgICAgICAgICAgICAgICAgICAgIC PfUDPjGNLnLTXrQJBuIVQaACLcYZPlBBWqMDBpEJPsZZZvJKLzZVPqQAZxCOViQKBdQXx4H8skZCVtBN NbNC0vXTw5Xb6+FWlSEcHtQOL8kdYzsF0ABF1pj4Db KVrqFVMks7PzODy6KZ3HWDQvONyyTM9UOWfpeh2HEIVlGYZvfYEGq3ntRrCgWPR9RJMyExkgJB9YMTXs K9echvSoZTDoQVTUXNvpNENYEQxxIBUQBTPeGATnEvFfRxErNYJoIPEkEOADCTY5RTIoLaGdSYVwDREl VaJmLJNWZAJjTLNnJyHxJVZxAEUxCY0OQFRsY046rf QgMTENCj4+ZClstmZxLnbZIlX9AXLfw4TsRUi2TS3SAXGkWpvls8QaDIOzOBUWZQohTK4QQQL0ZTOrVN OwWe8ISZUtV625tiBdVz5HLg6DZaCpNJ2wfz6TOAOyNVUuVsnPEvb5YXauKQ8RaHGvBQbZBTORth11jS WcvfBOo7SvryUlyJGCjIRbJQihMzCsSpNcVIbvMXZh LJGJPbCrsWK5FvGlLaKiRHMaThfiSFJBWIgAFoPmO9Hlv6UvKeJ6ITSfDmBsAZeoCVKnSwJhAS37kVfo AX9MEQHfILHhKT73KCE3CDUtYx9WXYMaWdH6yHU8CzKiYNQWFs0+NTkusaNbMwvKVqO6ATTni0SbLHl6 BO8QOWAzCFk7zIBjNOXpGCJroalsIJWnPu35HGSjUu gtMntdGVIKBTKgnqIxns1ZXUD1cHfaIE6pFOSvPh53VlNgXiXoFBL9AstbMO0aRSzmKZ6HJAY4UXoyRS IzKSIYUP6UGHcxTKYcGADuarMenRGcNBmyHR7XIXGdwoInRTDaHTIHEXbxII8FboT0IGO5YMNnGw3AJC OfOjW1pZD9DPHiTWIDKs3+NFuhnbKkXztRKkA0CIEz z3LjFWw3LO3ZMFUzAHl4kEBfTHBxFw72AACtQblmSZLwgg6hQUqeITKuCTIALNH7YYKeWT0qUHBiFDL1 EgXqOXPNCE6XDYXpANDzuLCpFAGlPZNpOfCyQBtrTXEkJUQtAD58fZoxCD0PINPnWFFtCE74DQJ6VRBj Ni4WVWKtRSOlrmA6TwLrYAQKZxRdT95heHAcAAjaRF BSDQo+An7FDV6mf9AeXKy0KLPdQJ1bpk2POEjTNiPoL9JztGcsQZMXPFXwgUKdZNBSl8MnslJgmZWLNH IejjXwV4ZwIpmhCl1sMDLyFp06SxJiJfPnSLK2UpmuIP0tPXssLF7PJQF4QQxcOfJxJPSTXX6OZNmyDH S2RsInkVrgKP9ZVkVdE4XoczApfUU7GEIqBKENXdIa J8BhAAAiMFtnLPMBFWneMK7UMYn0EUKkFNJpVz4ACy4VUrMjPH9wfw4OTOZvSADnSrzOYes3CEueYX3X iPZaMJaWtv8aCYH7toIvXVS6RNIta2LwGYSJGSHoDJXdIUXhnOreQGCNBLK8OYJdKK6qVMXsIRW5FiC3 LXRUEM2CKGTvMAWsjNTqDWAfRAJcWvWnWUtyXWNtBI X1VK67mYgcWH8MGTWwTTSyPQ82AZF2KWWiNf4FOMHmAXEbicC5JVMtDKEEJjKfE18hsKRkPVNqHSMFBR o+Re3KQY1ku1NfCEh6BRPvPL4spv3IQVxBWaZhL8LrdCbzCABYQB4ijGTiMXL1UGgda2ZumTYaJYyuwp pjwmqkZn4gXZJwCs39AbHbBfOuUVU4ULmlPZ9iONbr CF0JKAH9MUpiFoCaBSDSBF5HLTskKCZ9PlIzsIxpTB1RTkIhR9NscpMoqJU6ILSeUPKRYsJrZ2JiBYZg NTAgMCBSDQo+Ag5ALD0et8YhMWl0EaFcKI1unf8RMCpSCnHmA7Q7pCGjQ5O7IUmxSs0QLIZxIBFwGLNa REZBCYlaTN8UMC1tgeT1CL4ZwXQpOPPtBJRxiQBwDW i0I63obOWtMQsdMX4HIBA+Patricia+Mz7BGUYeVIOmGQOtDqGkOXUVKvIsD7MdQ7JGh2UqT4GpQA82aLlmgz KgHCsnAX8FFD9pUZBlUSUHQS3VuJHyuJ7ijgR2YJRhMTEAHqLkP40jeZBuUWFoGAX9CJEnQv8VUWYzL1 IeazXkzBaagfQySJUvAAWPDI2AOOnyjxEuoWOqzLva VQ49fSdmJQ2ZCn6AVaKoPK2hlz5MgSUxEi7ZPSD7Zl9STHWvKOLfJOTkWQW5UUTqRjYaOQisWNMyLWCm JCG7TSMtOGHcDL1TRqVyPZUlENk2ZMxiEBSuZHHfol0CQZTaRPG7OKHjEZGoVYWvNPKuAQgqKLDsVPNy QPT1XBIfFUDoNS7AAdOcCSKfGYWcZmXpVWOmHWSkhd 7TUPBsFUBtLwCtXtCmEDPmNPLePWglDILiLXS8Luu6RJIyEDGyGU4XKzEoJXPbPME2GNJzXHGrHYDbgw 6NPKLqMYChFFa3NXMdUZKjTGAxRHyhLENcRIT8YYg8GVYrGYZnYL9YKkLoGJRfONWhWSFeZQAoGCUzvj 8BOMXoBCMnBeW1RUGyDDKbKPAiLPhhTTFrTCR6NxF4 GFXtALSxIM6WMgBmCDMoTJT0JaNlUQHsCIKjlr5ASWLzBPMtOAIgXZTlDATrSSZbBHpnIXEeMAY1MuJ6 ZXHaOVThZK3DQdRoBCYxLcK6ZFipYJXrAHVrgw6FQCTqNGRaDKa6EDXyXAJeTVKxSIvdDPUvKEV1ZYd1 WNRgVUYwFM8XLiOgMHXuNkTmIDSkVQUbMFFtew1GII CjOAJxEoM1DHToBTHmZUZcCTaqTQQoMST5KtTcQYLsTFDeNQ5CMzSdGTIfOmInCGZhZJLqDZTfie8KZH YfJMWuGHA6WzJlTDVoRHXuALgeXEOlBYLuKPb3NSAlQYRmNM2UCuSuEMHhIrA7QXLfJDFfVSMycd6VCE GlBXAiAaq3VXWhHXExFMPvLRxmKOYhLUGzLVS4WEHy CNArJP5MHwKkHWPrSyBgYaHpINFkVHHrlp4FABQbLAExRPY3IPUrAUViRGBgQYlxDWSbESH9BgmfYNBi ALDmTP7TMiZiXYDpHuJ3LyZnBKUuQHEyjp9ABNHbNRW1MEpsMFXmXWWnBKVdCLgbDKVeMDD1OyO8CJYx FEZuBZ4GBrHuVGDnIKC9MaBkTKZrWMJjyr3NXRHtOC Y9SpH5RMHbJHEzNPTqGLosBUMxCUP8HRVxHLXvUCXcIZ1TIiVsBVYjDSq9VgJsYVOwHWUgkk2AMEFxOM P6Des0LLOzPSGfDFBkXCwmPUFaAGO6MPH6QFLwKJCyYT9WLlTvBVVwXGzyQzHhGHZoMPBkog0SBOLgOV W5VWE3UMBuXWXvAUWvVMpbDZCtCKF7AFX3DNGqWSWc MZ0CKaRgHDKcWHj9GwimYFPnWUXnup8OOPOjYTK2OVE9NwPpIEGbBEXsOMrgUKHgAXXmPGL2RNObSUJk ZY3QNrCnDAVsSRB4CPzaNDDeLMLdmz6MTQImVQI8LOfqPTSePUFjWHNrKTapVTQtIXJuXQucLJZkEVAk EW7NGyWrFFGjJOVvHNncUJAhPWJjtm2SBJQyDLZ1Dt V3FJIsPLOpIWYxUNxvTQGbUSQsUTd4ALIkXRIbHL5RKaJcXRaiHMYFFvt2MZfaX0u6EDK5Vp5BA3Lfg4 VoIKZlSYHGVHldVI2imaDjFPSfPd0SF2mYEkekOil5A1YzZVr2QOknZEN6HQBcPFNrJYKlIvF1VaN0IW 5jREOtJItxNFWrDOwfQHJ9DConEdVvKJCzJWA1Usn9 NzU7MwPzSF6JSr3QJiF6TOR1wJFqDr4BIFD2IZDKBwIjXY0JUDq= ID Date Data Source [id number] 03/08/2021 12:47:50 AM EDT [facility] Name Value Range Interpretation Code Description Data Alisson rce(s) Supporting Document(s) Progress Note [facility] GOZRGc0rFzPSSzTz64/IJAgwVFWuy7QaVBllEMo9LRjsCHWcR6ZgKIX3fW7sUSQ7GLrHXmKtQwKaJqC3 lbm [file] ID Date Data Source [id number] 03/08/2021 06:58:42 AM EDT [facility] Name Value Range Interpretation Code Description Data Alisson e(s) Supporting Document(s) Leukocytes [#/volume] in Blood by Automated count 6.0 10*3/uL 4-10 [facility] Erythrocytes [#/volume] in Blood by Automated count 4.88 10*6/uL 4.6- 6.1 [facility] Hemoglobin [Mass/volume] in Blood 12.8 g/dL 13.5-18 L [facility] Hematocrit [Volume Fraction] of Blood by Automated count 39.3 % 4 1-53 L [facility] Erythrocyte mean corpuscular volume [Entitic volume] by Auto mated count 80.5 fL 80-96 [facility] [facility] Erythrocyte mean corpuscular hemoglobin [Entitic mass] by Automated count 26.3 pg 27-33 L [facility] Erythrocyte mean corpuscular hemoglobin concentration [Mass/volume] by Automated count 32.6 g/dL 32.0-36.0 [facility] distribution width [Ratio] by Automated count 14.7 % 11.5-14.5 H [facility] Platelets [#/volume] in Blood by Automated count 204 10*3/uL 150-400 [facility] Confirmed ID Date Data Source [id number] 03/08/2021 06:06:22 AM [facility] Name Value Range Interpretation Code Description Data Alisson rce(s) Supporting Document(s) Cholesterol [Mass/volume] in Serum or Plasma 228 mg/dL <200 H [facility] Triglyceride [Mass/volume] in Serum or Plasma 95 mg/dL <150 [facility] Cholesterol in HDL [Mass/volume] in Serum or Plasma 62 mg/dL >40 [facility] Cholesterol in LDL [Mass/volume] in Serum or Plasma by calcu lation 147 mg/dL <100 H [facility] Cholesterol in VLDL [Mass/volume] in Serum or Plasma by calc ulation 19 mg/dl 16-42 [facility] Cholesterol non HDL [Mass/volume] in Serum or Plasma 166 mg/dL <130 H [facility] ID Date Data Source [id number] 03/08/2021 06:06:22 AM [facility] Name Value Range Interpretation Code Description Data Alisson rce(s) Supporting Document(s) Albumin [Mass/volume] in Serum or Plasma by Bromocresol green (BCG) dye binding method 3.6 g/dL 3.5-5.2 [facility] Bilirubin.total [Mass/volume] in Serum or Plasma 0.3 mg/dL <1.2 [facility] Calcium [Mass/volume] in Serum or Plasma 8.8 mg/dL 8.6-10.0 [facility] Chloride [Moles/volume] in Serum or Plasma 99 mmol/L 98-107 [facility] Creatinine [Mass/volume] in Serum or Plasma 0.63 mg/dL 0.70-1.20 L [facility] Glucose [Mass/volume] in Serum or Plasma 63 mg/dL 70-140 L [facility] Alkaline phosphatase [Enzymatic activity/volume] in Serum or Plasma 100 U/L 40-129 [facility] Potassium [Moles/volume] in Serum or Plasma 3.4 mmol/L 3.4-5.1 [facility] Protein [Mass/volume] in Serum or Plasma 7.0 g/dL 6.4-8.3 [facility] Sodium [Moles/volume] in Serum or Plasma 132 mmol/L 136-145 L [facility] Aspartate aminotransferase [Enzymatic activity/volume] in Serum or Plasma 13 U/L <40 [facility] Urea nitrogen [Mass/volume] in Serum or Plasma 7 mg/dL 6-20 [facility] Osmolality of Serum or Plasma by calculation 271 mosm/kg 275-300 L [facility] Creatinine/Urea nitrogen [Mass Ratio] in Serum or Plasma 11 [facility] Bicarbonate [Moles/volume] in Serum 22 mmol/L 22-29 [facility] Alanine aminotransferase [Enzymatic activity/volume] in Seru m or Plasma 6 U/L <41 [facility] Anion gap 3 in Serum or Plasma 11 mmol/L 8-15 [facility] Glomerular filtration rate/1.73 sq M pre dicted among non-blacks [Volume Rate/Area] in Serum or Plasma by Creatinine-based formula (MDRD) >6 0 [facility] Glomerular filtration rate/1.73 sq M pre dicted among blacks [Volume Rate/Area] in Serum or Plasma by Creatinine-based formula (MDRD) >60 [facility] ID Date Data Source [id number] 03/08/2021 06:06:22 AM [facility] Name Value Range Interpretation Code Description Data Alisson rce(s) Supporting Document(s) Thyrotropin [Units/volume] in Serum or Plasma 1.330 u[IU]/mL 0.270-4. 200 [facility] ID Date Data Source [id number] 03/08/2021 05:44:10 AM [facility] Name Value Range Interpretation Code Description Data Alisson rce(s) Supporting Document(s) Hemoglobin A1c/Hemoglobin.total in Blood by HPLC 5.7 % 4.0-6.0 [facility] (NOTE)<5.7% Average risk of diabetes (ADA)5.7-6.4% Increased risk of diabetes(ADA)>/= 6.5% Diagnostic for diabetes(ADA) Glucose mean value [Mass/volume] in Blood Estimated fr om glycated hemoglobin 118 mg/dL <126 [facility] ID Date Data Source [id number] 03/07/2021 09:56:20 PM [facility] XR ABDOMEN AP SUPINE AND LATERAL VIEW [id number] 019FINAL RESULTInterpreted by:Peyton Hernandez, MDPROCEDURE INFORMATION: Exam: XR Abdomen Exam date and time: 03/07/2021 7:59 PM Age: 55 years old Clinical indication: Other: Shunt series TECHNIQUE: Imaging protocol: XR of the abdomen. Views: 2 Views. Upright and supine views. COMPARISON: DX XR ABDOMEN AP ABD SUPINE ONLY [id number] PORTABLE 10/22/2020 2:47 AM FINDINGS: Heart/Mediastinum: Left-sided ventricular peritoneal shunt that that crosses the midline and terminates within the pelvis. Gastrointestinal tract: Scattered gas and feces filled bowel loops. Vasculature: Phleboliths within the pelvis. Bones/joints: Degenerative changes in the lower lumbosacral spine. IMPRESSION: Left-sided ventricular peritoneal shunt crosses the midline and terminates within the pelvis. THIS DOCUMENT HAS BEEN ELECTRONICALLY SIGNED BY PEYTON HERNANDEZ MDThis document has been electronically signed by Peyton Hernandez MD on 03/07/2021 9:56 PM Name Value Range Interpretation Code Description Data Alisson rce(s) Supporting Document(s) ID Date Data Source [id number] 03/07/2021 09:54:05 PM [facility] XR CHEST FRONTAL AND LATERAL [id number] RESULTInterpreted by:Peyton Hernandez [facility]: Exam: XR Chest Exam date and time: 03/07/2021 7:59 PM Age: 55 years old Clinical indication: Other: Shunt series TECHNIQUE: Imaging protocol: XR of the chest. Views: 2 views. COMPARISON: CR XR CHEST FRONTAL AND LATERAL [id number] 10/21/2020 8:06 PM FINDINGS: Lungs: Right perihilar fibrotic changes. Increased density in the left upper lung field and left lung base. Calcified granulomas in the perihilar regions bilaterally. Pleural spaces: Bilateral apical pleural thickening. Right-sided pleural effusion. H eart/Mediastinum: Left-sided ventricular peritoneal shunt is noted and appears intact. Diaphragm: Elevated right hemidiaphragm. Bones/joints: Unremarkable. IMPRESSION: 1. Allowing for difference in technique, there is no significant interval change. 2. Left-sided ventricular peritoneal shunt THIS DOCUMENT HAS BEEN ELECTRONICALLY SIGNED BY PEYTON HERNANDEZ MDThis document has been electronically signed by Peyton Hernandez MD on 03/07/2021 9:54 PM Name Value Range Interpretation Code Description Data Alisson rce(s) Supporting Document(s) ID Date Data Source [id number] 03/07/2021 09:53:16 PM [facility] Name Value Range Interpretation Code Description Data Alisson rce(s) Supporting Document(s) Progress Note [facility] YDFGTy2nQtNGRqKr62/GNAivENMnu7HlWNmfOGu9GNvsSWEsH9EqEVA5eW2dCHA7SFaHAtDjTgWdYgN0 lbm LdOdiUMzMlNWCtMfiRFqZzNJrtAbmqnWJdWV2VqDA5RPNbC57sQPUkGXFkM4IbZLSmNeI+Ri3SHCMifJ MxKM1CErsA4FnywgI5PO0uwk/AViDhCP8r/cG4au0Vb3juTWuSqHtG+GMckhdH1XAUb/Bs983xVfdxuS ikJh/GgueuxKDzg8vWdHR//9MX0IxfN2T/+jFUjMyW 4NpjRCSSXs5EXMFdBQX66qzSQjgP69oBWmmx+0LhpzcZs08lkukQfPDlCOBtpAgh8hTcmgiTu6SDiG5A GFDFvriGJfiW8D+cnpLx3+X6JJ3gdZq1XFZqrerjqGMSIZMYd56Mx4HY7JJSWQYgj/P3E2gqEZ8rO63i VZqVZyIvDeiZoVuqydytfWObVQBMej+GkIeGVqHpcE [file] OF4jBAo+Jf1Dv9CjxoS9glNpBOp9Bru5UNyfCMQGKd7C ID Date Data Source [id number] 03/07/2021 09:50:25 PM EDT [facility] XR SKULL LIMITED [id number] RESULTInterp reted by:Peyton Hernandez MDPROCEDURE INFORMATION: Exam: XR Skull Exam date and time: 03/07/2021 7:59 PM Age: 55 years old Clinical indication: Other: Shunt series TECHNIQUE: Imaging protocol: XR of the skull. Views: Less than 4 views. COMPARISON: CT HEAD WITHOUT CONTRAST [id number] 03/07/2021 7:31 PM FINDINGS: Tubes, catheters and devices: Ventricular peritoneal shunt catheter is again noted and unchanged in position compared to previous exam. There is no a kinking of the shunt catheter. Bones/joints: Status post right craniectomy with cranioplasty. Soft tissues: Unremarkable. IMPRESSION: 1. Left-sided ventricular peritoneal shunt catheter unchanged in appearance compared to previous study. 2. Status post right craniectomy and cranioplasty. THIS DOCUMENT HAS BEEN ELECTRONICALLY SIGNED BY PEYTON HERNANDEZ MDThis document has been electronically signed by Peyton Hernandez MD on 03/07/2021 9:50 PM Name Value Range Interpretation Code Description Data Alisson rce(s) Supporting Document(s) ID Date Data Source [id number] 03/07/2021 08:27:06 PM EDT [facility] CT HEAD WITHOUT CONTRAST [id number] RES ULT - FINALInterpreted by:Nicola Wyattum BeginsSigned on TueMar 07, 2021 8:26 PM by Keshawn Berman MDTHINichole REPORT CONTAINS FINDINGS THAT MAY BE CRITICAL TO PATIENT CARE. The findings were verbally communicated via telephone conference with LINETTE CHRISTOPHER at 8:26 PM EDT on 03/07/2021. The findings were acknowledged and understood.The new hemorrhage is known; there is a prior outside study from today which is not available for direct comparison.THIS DOCUMENT HAS BEEN ELECTRONICALLY SIGNED BY KESHAWN Cruz EndsPROCEDURE INFORMATION: Exam: CT Head Without Contrast Exam date and time: 03/07/2021 7:31 PM Age: 55 years old Clinical indication: Other: Sdh evaluation; Additional info: Repeat head CT for sdh with worsening with shunt TECHNIQUE: Imaging protocol: Computed tomography of the head without contrast. Radiation optimization: All CT scans at this facility use at least one of these dose optimization techniques: automated exposure control; mA and/or kV adjustment per patient size (includes targeted exams where dose is matched to clinical indication); or iterative reconstruction. COMPARISON: CT HEAD WITHOUT CONTRAST [id number] 02/26/2021 9:47 AM FINDINGS: Brain: Thin right frontal cerebral convexity subdural hygroma is again demonstrated measuring approximately 5 mm in thickness. 3-4 mm hyperdense extra-axial hemorrhage overlying the right frontal lobe on image 13 of series 8 is new since the prior study. Subacute to chronic left subdural hematoma is again demonstrated. In the interval, new hyperdense left frontotemporal subdural hemorrhage, for example measuring up to 9 mm in thickness on axial image 19 of series 3. Overall thickness of the left subdural hemorrhage is similar to prior. No progressive mass effect. No evolving territorial infarct seen. Areas of bilateral frontotemporal as well as right parietal encephalomalacia again demonstrated. Cerebral ventricles: A ventriculoperitoneal shunt catheter is in stable position, tip located in the region of the posterior left frontal horn. The ventricles are small, stable in size. There is ex vacuo enlargement of the frontal horn of the right lateral ventricle, as before. The left lateral ventricle is partially effaced. Paranasal sinuses: Visualized sinuses are unremarkable. No fluid levels. Mastoid air cells: Visualized mastoid air cells are well aerated. Bones/joints: Chronic appearing nasal bone fracture. The nasal septum is deviated to the left. Prior right craniectomy with cranioplasty. There is a left frontal calvarial kaleigh hole. Soft tissues: Unremarkable. IMPRESSION: 1. New hyperdense left frontotemporal subdural hemorrhage measures up to 9 mm over the left frontal lobe. 2. Relatively trace right frontal extra- axial blood may be subarachnoid or subdural hemorrhage. 3. No progressive intracranial mass effect. THIS DOCUMENT HAS BEEN ELECTRONICALLY SIGNED BY KESHAWN BERMAN MDThis document has been electronically signed by Keshawn Berman MD on 03/07/2021 8:08 PM Name Value Range Interpretation Code Description Data Alisson rce(s) Supporting Document(s) ID Date Data Source [id number] 03/07/2021 08:12:45 PM EDT [facility] CT CERVICAL SPINE WITHOUT CONTRAST [id number] FINAL RESULTInterpreted by:TIANA WyattROCEDURE INFORMATION: Exam: CT Cervical Spine Without Contrast Exam date and time: 03/07/2021 7:31 PM Age: 55 years old Clinical indication: Other: Fall TECHNIQUE: Imaging protocol: Computed tomography images of the cervical spine without contrast. Radiation optimization: All CT scans at this facility use at least one of these dose optimization techniques: automated exposure control; mA and/or kV adjustment per patient size (includes targeted exams where dose is matched to clinical indication); or iterative reconstruction. COMPARISON: No relevant prior studies available. FINDINGS: Bones/joints: Straightening of the cervical lordosis may be positional or due to muscle spasm. Slight degenerative retrolisthesis of C6 on C7. No acute fracture seen. 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 Gqik-rb-maggmrxn degenerative changes at C1-C2. No severe central spinal canal stenosis. There are neural foraminal stenoses at C5-C6 and C6-C7 due to uncovertebral arthropathy. Lungs: There is a right lung apical pleural scarring. Soft tissues: Unremarkable. IMPRESSION: No cervical spine fracture seen. THIS DOCUMENT HAS BEEN ELECTRONICALLY SIGNED BY KESHAWN BERMAN MDThis document has been electronically signed by Keshawn Berman MD on 03/07/2021 8:12 PM Name Value Range Interpretation Code Description Data Alisson rce(s) Supporting Document(s) ID Date Data Source [id number] 03/07/2021 09:38:27 PM [facility] Name Value Range Interpretation Code Description Data Alisson rce(s) Supporting Document(s) Albumin [Mass/volume] in Serum or Plasma by Bromocresol green (BCG) dye binding method 2.7 g/dL 3.5-5.2 L [facility] Bilirubin.total [Mass/volume] in Serum or Plasma 0.2 mg/dL <1.2 [facility] Bilirubin.direct [Mass/volume] in Serum or Plasma <0.3 [facility] Alkaline phosphatase [Enzymatic activity/volume] in Serum or Plasma 75 U/L 40-129 [facility] Aspartate aminotransferase [Enzymatic activity/volume] in Se rum or Plasma 9 U/L <40 [facility] Alanine aminotransferase [Enzymatic activity/volume] in Serum or Pl asma <41 [facility] Protein [Mass/volume] in Serum or Plasma 5.3 g/dL 6.4-8.3 L [facility] ID Date Data Source [id number] 03/07/2021 08:49:47 PM [facility] Name Value Range Interpretation Code Description Data Alisson rce(s) Supporting Document(s) Ethanol [Mass/volume] in Serum or Plasma Negative [facility] ID Date Data Source [id number] 03/07/2021 05:40:00 PM EDT [facility] Name Value Range Interpretation Code Description Data Alisson rce(s) Supporting Document(s) SARS-CoV-2 RNA 2019 nCoV Real-Time RT-PCR: NOT DETECTED [facility] This lab was ordered by [facility] and reported by [facility]. ID Date Data Source [id number] 03/07/2021 09:39:31 PM EDT [facility] Service Cmnt XXX-Imp : NoneRespiratory P CR Panel : PCR ResultsMicroorganism XXX Cult : See Labs Tab for 2019 nCoV RT-PCR resultsHAdV DNA QI ARNULFO+non-probe : Not DetectedHCoV [id number] Nph QI ARNULFO+non-probe : Not DetectedHCoV KCT0SCN Nph QI ARNULFO+non-probe : Not HppenoiwGOwRFD29 RNA Nph QI ARNULFO+non-probe : Not GsdvubsrANwNQZ44 RNA Upper resp QI ARNULFO+probe : Not DetectedhMPV RNA Nph QINAA+non-probe : Not DetectedRV+EV RNA Nph QI ARNULFO+non-probe : Not DetectedFLUAV RNA Nph QI ARNULFO+ non-probe : Not DetectedFLUBV RNA Nph QI ARNULFO+non-probe : Not DetectedHPIV1 RNA NphQINAA+non-probe : Not DetectedHPIV2 RNA Nph QINAA+non-probe : Not DetectedHPVI3 RNA Nph ARNULFO+non-probe : Not DetectedHPIV4 RNA Nph Q ARNULFO+non-probe : Not DetectedRSV RNA Nph Q ARNULFO+non-probe : Not DetectedB pert.PT PrmtNph Q ARNULFO+non-probe : Not DetectedC pneum DNA Nph Q ARNULFO+non-probe : Not DetectedM pneum DNA Nph Q ARNULFO+non-probe : Not DetectedB zzctaPW559 DNA Nph ARNULFO+non-probe : Not Detected Name Value Range Interpretation Code Description Data Alisson rce(s) Supporting Document(s) ID Date Data Source [id number] 03/07/2021 09:37:47 PM EDT [facility] Name Value Range Interpretation Code Description Data Alisson rce(s) Supporting Document(s) Specimen source [Identifier] of Unspecified specimen [facility] PRIORITY SARS-CoV-2 RNA 2019 nCoV Real-Time RT-PCR: NOT DETECTED [facility] Assay Performed [facility] Patients first test for condition [facility] 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 [facility] Patient has symptoms related to condition [facility] When did you start to experience these symptoms [Date and time] [Phen X] [facility] Patient was hospitalized because of this condition [facility] patient was admitted to ICU for condition [facility] Patient resides in a congregate care setting [facility] status [facility] ID Date Data Source [id number] 03/11/2021 11:06:18 PM EDT [facility] Name Value Range Interpretation Code Description Data Alisson rce(s) Supporting Document(s) Oxcarbazepine [Mass/volume] in Serum or Plasma 32 ug/mL 10 [facility] (NOTE)This test was developed and its pe rformance characteristicsdetermined by [employer]. It has not been cleared or approvedby the Food and Drug Administration. Detection Limit = 1Performed At: [email or web address] [address] [place], [place] [id number] bIarra MD Ph:[phone] ID Date Data Source [id number] 03/07/2021 06:06:28 PM EDT [facility] Name Value Range Interpretation Code Description Data Alisson rce(s) Supporting Document(s) Bicarbonate [Moles/volume] in Serum 26 mmol/L 22-29 [facility] Chloride [Moles/volume] in Serum or Plasma 96 mmol/L 98-107 L [facility] Creatinine [Mass/volume] in Serum or Plasma 0.67 mg/dL 0.70-1.20 L [facility] Glucose [Mass/volume] in Serum or Plasma 89 mg/dL 70-140 [facility] Potassium [Moles/volume] in Serum or Plasma 3.7 mmol/L 3.4-5.1 [facility] Sodium [Moles/volume] in Serum or Plasma 131 mmol/L 136-145 L [facility] Urea nitrogen [Mass/volume] in Serum or Plasma 8 mg/dL 6-20 [facility] Anion gap 3 in Serum or Plasma 9 mmol/L 8-15 [facility] Osmolality of Serum or Plasma by calculation 269 mosm/kg 275-300 L [facility] Creatinine/Urea nitrogen [Mass Ratio] in Serum or Plasma 11 [facility] Calcium [Mass/volume] in Serum or Plasma 9.3 mg/dL 8.6-10.0 [facility] Glomerular filtration rate/1.73 sq M pre dicted among non-blacks [Volume Rate/Area] in Serum or Plasma by Creatinine-based formula (MDRD) >6 0 [facility] Glomerular filtration rate/1.73 sq M pre dicted among blacks [Volume Rate/Area] in Serum or Plasma by Creatinine-based formula (MDRD) >60 [facility] ID Date Data Source [id number] 03/07/2021 06:27:34 PM [facility] Value Range Interpretation Code Description Data Alisson rce(s) Supporting Document(s) Prothrombin time (PT) 13.4 s 12.5-14.9 [facility] INR in Platelet poor plasma by Coagulation assay 1.01 [facility] Routine intensity oral anticoagulation I NR is typically 2.0-3.0. Target INR must be clinically individualized. ID Date Data Source [id number] 03/07/2021 06:27:34 PM [facility] Value Range Interpretation Code Description Data Alisson rce(s) Supporting Document(s) aPTT in Platelet poor plasma by Coagulation assay 24.6 s 24.0-33. 0 [facility] ID Date Data Source [id number] 03/07/2021 07:06:24 PM [facility] Value Range Interpretation Code Description Data Alisson rce(s) Supporting Document(s) Leukocytes [#/volume] in Blood by Automated count 6.4 10*3/uL 4-10 [facility] Erythrocytes [#/volume] in Blood by Automated count 5.23 10*6/uL 4.6- 6.1 [facility] Hemoglobin [Mass/volume] in Blood 14.0 g/dL 13.5-18 [facility] Hematocrit [Volume Fraction] of Blood by Automated count 41.9 % 4 1-53 [facility] Erythrocyte mean corpuscular volume [Entitic volume] by Auto mated count 80.1 fL 80-96 [facility] Erythrocyte mean corpuscular hemoglobin [Entitic mass] by Automated count 26.8 pg 27-33 L [facility] Erythrocyte mean corpuscular hemoglobin concentration [Mass/volume] by Automated count 33.5 g/dL 32.0-36.0 [facility] distribution width [Ratio] by Automated count 15.0 % 11.5-14.5 H [facility] Platelets [#/volume] in Blood by Automated count 228 10*3/uL 150-400 [facility] Confirmed Differential cell count method - Blood [facility] Neutrophils/100 leukocytes in Blood by Automated count 59 % [facility] Lymphocytes/100 leukocytes in Blood by Automated count 29 % [facility] Monocytes/100 leukocytes in Blood by Automated count 11 % [facility] Eosinophils/100 leukocytes in Blood by Automated count 0 % [facility] Basophils/100 leukocytes in Blood by Automated count 1 % [facility] Neutrophils [#/volume] in Blood by Automated count 3.81 10*3/uL 1.8-7 .0 [facility] Lymphocytes [#/volume] in Blood by Automated count 1.88 10*3/uL 1.2-4 .0 [facility] Monocytes [#/volume] in Blood by Automated count 0.70 10*3/uL 0-0.8 [facility] Eosinophils [#/volume] in Blood by Automated count 0.02 10*3/uL 0-0.5 [facility] Basophils [#/volume] in Blood by Automated count 0.03 10*3/uL 0-0.2 [facility] Nucleated erythrocytes/100 leukocytes [Ratio] in Blood by Automated count 0 /100{WBCs} 0-0 [facility] ID Date Data Source [id number] 03/07/2021 06:11:36 PM EDT [facility] Name Value Range Interpretation Code Description Data Alisson rce(s) Supporting Document(s) ABO and Rh group [Type] in Blood [facility] Blood group antibody screen [Presence] in Serum or Plasma [facility] Blood bank comment [facility] ID Date Data Source [id number] 03/07/2021 02:36:00 PM EDT [facility] Name Value Range Interpretation Code Description Data Alisson rce(s) Supporting Document(s) SARS-CoV-2 (COVID 19) NEGATIVE - SARS-CoV-2 (COVID19) [facility] This lab was ordered by [facility] a nd reported by [facility]. ID Date Data Source [id number] 02/28/2021 10:49:59 AM EDT [facility] CT HEAD WITHOUT CONTRAST [id number] RESU LTInterpreted by:Juani aMrshall MDINDICATION: eval ventricles, to be done shortly prior to nsgy clinic appt in 4 wks. TECHNIQUE:Axial, noncontrast CT images from the skull base to the vertex without intravenous contrast. Automated dose lowering techniques and/or adjustment according to patient size were utilized for this exam.COMPARISON:Noncontrast CT head, 12/21/2020.FINDINGS:Increased decompression with near-complete effacement of the left lateral ventricle since the prior study from 12/21/2020.Stable position of the left frontal approach 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 shunt catheter tip in the region of the left foramen of Monro. No significant midline shift. The basal cisterns are patent.Asymmetric new hypoattenuation involving the right frontal and temporal lobe. Stable size of the left frontal convexity subacute to chronic subdural hematoma. Stable right frontal craniectomy with cranioplasty postsurgical changes with stable underlying small subdural hygroma. Redemonstration of encephalomalacia in the inferior frontal lobes, right greater than left, as well as right inferior temporal lobe. No fluid in the paranasal sinuses and mastoid air cells.IMPRESSION:-Interval decrease in the size of left lateral ventricle since the prior study from 12/21/2020.-Stable position of the left frontal approach 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 shunt catheter tip in the region of the left foramen of Monro. -Asymmetric new hypoattenuation involving the right frontal and temporal lobe is artifactual. The-Stable left frontal convexity chronic subdural hematoma.-Other chronic findings as described.This document has been electronically signed by MARILYN Marshall on 02/28/2021 10:47 AM Name Value Range Interpretation Code Description Data Alisson rce(s) Supporting Document(s) ID Date Data Source [id number] 02/26/2021 11:35:23 AM EDT [facility] Name Value Range Interpretation Code Description Data Alisson rce(s) Supporting Document(s) Progress Note [facility] PAIOQz7lBzRHPkZp36/QFPbdJYEbl0TlIJryTUe3UFgaYTXwS8PzDJO9mR9mFQA0NTqZMsPsPuHjQEA5 lbm [file] tjLzUrMi5PZUTUY6OVLa== ID Date Data Source [id number] 02/12/2021 12:00:00 AM EDT [facility] Name Value Range Interpretation Code Description Data Alisson rce(s) Supporting Document(s) SARS-CoV2 Rapid Antigen Negative [facility] This lab was ordered by [facility] and reported by [facility]. ID Date Data Source [id number] 02/10/2021 10:39:00 AM EDT [facility] ([facility] Name Value Range Interpretation Code Description Data Alisson rce(s) Supporting Document(s) White Blood Count 7.3 4.0-10.0 [facility] ([facility]) Red Blood Count 6.17 4.30-6.10 [facility] Platelets 227 150-450 [facility] Hemoglobin 15.7 [facility]) Hematocrit 51.6 [facility] ([facility]) ID Date Data Source [id number] 02/10/2021 10:39:00 AM EDT [facility] ([facility] Name Value Range Interpretation Code Description Data Alisson rce(s) Supporting Document(s) Glucose 72 70-100 [facility] Sodium 137 136-145 [facility] Creatinine 0.73 0.70-1.30 [facility]) Blood Urea Nitrogen 8 7-18 [facility] ([facility] Potassium 3.8 3.5-5.1 [facility] Chloride 103 98-107 [facility] Carbon Dioxide 25 21-32 [facility] Glomerular filtration rate/1.73 sq M.pre dicted [Volume Rate/Area] in Serum or Plasma by Creatinine-based formula (MDRD) Laboratory test result [facility] ([facility]) Calcium 9.2 8.2-9.6 [facility] ID Date Data Source [id number] 02/06/2021 05:00:30 PM EDT [facility] Name Value Range Interpretation Code Description Data Alisson rce(s) Supporting Document(s) Progress Note [facility] SWXBSb0gEbHAHpQs97/TNPdzPAVki9AxHJevANw1FEvhUELyN6HzFSL3dO6qMUA9NCnILlNtXwXbXGB4 lbm [file] ErSeHwPF8FBh7IRcR4PGY6bUGmJb2SJoY9QMNHXuPsQM3MFIw= ID Date Data Source [id number] 01/27/2021 12:00:00 AM EDT [facility] Name Value Range Interpretation Code Description Data Alisson rce(s) Supporting Document(s) SARS-CoV2 Rapid Antigen Negative [facility] This lab was ordered by [facility] and reported by [facility]. ID Date Data Source [id number] 01/13/2021 12:00:00 AM EDT [facility] Name Value Range Interpretation Code Description Data Alisson rce(s) Supporting Document(s) SARS-CoV2 Rapid Antigen Negative [facility] This lab was ordered by [facility] and reported by [facility]. ID Date Data Source [id number] 01/09/2021 04:30:00 PM EDT [facility] Name Value Range Interpretation Code Description Data Alisson rce(s) Supporting Document(s) SARS coronavirus 2 RNA [Presence] in Res piratory specimen by ARNULFO with probe detection NEGATIVE [facility] This lab was ordered by [facility] a nd reported by [facility]. ID Date Data Source [id number]/09/2021 12:00:00 AM EDT [facility] Name Value Range Interpretation Code Description Data Alisson rce(s) Supporting Document(s) SARS coronavirus [address] Ag [address] [facility] This lab was ordered by [facility] and reported by [facility]. ID Date Data Source [id number] 01/02/2021 04:12:05 PM EDT [facility] Name Value Range Interpretation Code Description Data Alisson rce(s) Supporting Document(s) ED Provider Note [facility] DGZSYe5cTtVPKgEt94/DVJqoHQLjb0UyTGseAZg0BRspIKEzU6ArHZO0aK0wBJA3KJbITkWnCjXlGSZk lbm [file] ubnTCUljK2aV9UkpXeLStsT6OAUKPxgAbtDKkPb+IL2V+MfsHhsM71yc79Bm9U6jG4GS4fFGHwZW+Agustín 51vn7mv3+8eaugLYS28CTF/qNar1rvsSV4Qm2p38fUHE0EX1t7FaWGVMovr4IhNMmIRxN75KJY6gKqxr /Ft+B5wZch54bIPbaJ6QsplTzS1wEkcW/LQ/i+Kf8m I7jnkOGqzsUp52wQrQEt0GThOvhy7g2Gc/SSqxO9evMIHK5fB58SlgfXMlQu5zca0i4m+jxsRum7uBNe y3Ljdy6o4LY5OcOqboPEtd+bSpUHyeei8cgXukvN+jQvvPyYPm6HEbXYOEDJuTTAdyExeFuUMdODet74 9RVc3Z8dLSF8fnjA9c2lc3zEs/Y3Ij4P66o09I8vo3 xH/vY7gMAyvFswrpLSfXgyQ5K83z4pEk8sdoG0GslB+0E7ja+lR+s+vbWermfoA/SJ+lu4vV3EL3EZJQ 43PjejzdnmErPG/IfnUk8/ogcMXQ1Qtyy65y0li1tEV/fQ8/FHmQDKA2TcmZswtazJohMG7JS0RV08Ew TtVqM5txmlzgrqbYyJcoqu9tM1kZW2okwpqo+Tj8of [file] PwOWDyGIOYEFyaLP5CSL8eneZ8MN4PcIPjHYJlBPGmwDMmRGn8O23ycUSyUEhsOR1QTBR+Patricia+Pg0KIC WkVWDwMHEfVkBkDKUKGvAsZ9EoF2KYq8EzQ0DlQL06rVlfkvQwSXzbHR5XCO5zPPRsIMHOOF5NcCEwbJ 8jcrE2MjElJKCFHrYlY20jyKWjMXPfRDB3CDTzEt0J HDViL3RkbdBdoViyclClAHOvFXEARE7ELKzannRmtIJbhOykSJ95bNkkUH1GVj2FNkScTP3dkc3JeAZc Cn5UHLN8Ij8TLSTqVGNoNQLySCC5IRVsJzHdMPhaSKJtOIEgEEV1IHNfJWRjTA8OLcCaJCDoVyI1VXVm OZLhJLPcfy5VFVDaGDW8TlA6OtUeYGDnDTRmEBosYU HbPOYxMDF8VJNrQXLmIK3FJzHdDXCmOSD4OCHnFHEmIDGijo7IFEXbUJHpQlh6DJPmWIWzQFOyREbkGB BdPML8KFQ4QXVcIQKbPE0OCfQjZSZaERYaAwIdOLNuLJBwkg3UOMGqPRCzRNG1SYDdOBOtKFTpSSzxWY QuDKI4TEJ8SAOtYACvNX8NJnXqNJFfYEErMDFeEGMs RMFgrv4KSOAzUWMxZfTzNMDiBUYaXVOrZAybJNNoLJW3UQQ1EJVaDMZeZK5FWgMbNSWlEEI3LWZxTJRc MQIplo3CLOEnPCVmOeLnDjBjRYRiEAAjOHhkHAQtCSA7JwY9FQVtOYSxHD7OYwYbKGJnDkT8IKysLSLw SVSkni6IZGUhMPRcOIUmRBLcONRjSQVyTZfhNVUwSL SzTVbeUITiRXTsJT0IReFbHEQuSkW6DTNbMRXwSRGskm8VTZKaVBDiMVQ2PRUeUQBeBSFiNJufVLEaHM W7SOytBAYiLHOzBH7UDoLjBRBqRyT4AdGzYKVoBNUkme2BZIQqURHqLzudLvWoNVOsFBFaEOboNIYqDB F0PBGiLJUcIKTpHO4XErPqYEQqKzo7JfmsQRCdBUCx rp8NTANbVNVkVWE7GHGpGGXvAIPeOUrrLPGpPFY8RkM7LAHgNLHbGC6GVqXwRNUmIbtuBPoqSKOwMHUy rq6MISNmREViEBKoKaLuLAZkLAZuGXwuTLOmBVQ2EJk6PEQcDRGeSK9FPnHvJOAhRJQ8GRGfTUYiXGQy mr3WEPMgYCO5KZLtKpJxDLUyEGUzEPapZULyEXErZB NtNKTbQSRtPD1CQqJfSZVzYOI5SQRlLNUrCKJmgb8ZCEYmISW2XAq3OcJcPZNvAMKnADgwITJlCMEeMF inVLBkDCJlEZ8PSdIdRTYqJoT6OpBwEXEsJBOwka4SNPQyJEP2Ihq5TYWzIXLxVVHtYFjbOZLaQXXfVr O9SVKmQGCtJK2OTnTbLEBqSxViAYVpOLPhLEVijj5B BFCeVYE5NAU4REFbVIYjCOKlGGbcYQQiLDU7IIh5KSTxOMGoZC6NVoKoDFXrZgR8SaIuFNYnBJSezn8W DPEbJSG3TSKdMoIcMSNiDUJqIUdpGKQrQQP4FnH4HLWxSLAzWP5ZYjJtFBJlFfD4NkEcLPUrYUIwql9Z KACoIEV9Fil2WSGzYLDwHWRmIXcoKBBwHMI1IWR9RB VdEOUbFH9ZVoAbYDPrJsmjGUpxNBQuUXOzud3JVQUbLFO9DgJjMyTuBAOvANXnDEhsYTTaEKG3XQu1RG HpDFYvTU5YReQuRXZdHou0VdDcYAXaUKEybp6AUDHfBLR1Vjs8KrOqXTHfWNXxVUpmCHDxZKC3DHB9OV CyHQWxRQ6SCvRgZEZwIjgtZPYgQYGwOYYauo4OuPVe gZlwrc5VBYnWJx7KgJpuTZO1PHzjPx7heGU5BfQcYGMHHm7EzwRwISArYXEGDIzvTJNrYQWuROMrOYVd MAUaJHQnLKg6BOH6CHq4XfZ3IJLcMtd8ZdK1JKWbPwJdMQAmYBRrWNNmZFptNvFhAZWfMqE6KQOpBTL+ KU9uDYg+Vi2Vb8KmsiQ9ivTuOVr3NZPpME9DPOACN2UVJa== ID Date Data Source [id number] 01/02/2021 12:00:00 AM EDT [facility] Name Value Range Interpretation Code Description Data Alisson rce(s) Supporting Document(s) SARS-CoV2 Rapid Antigen Negative [facility] This lab was ordered by [facility] and reported by [facility]. ID Date Data Source [id number] 12/26/2020 02:42:39 PM EDT [facility] Name Value Range Interpretation Code Description Data Alissno rce(s) Supporting Document(s) ED Provider Note [facility] XXEBQm4aJcEBAwAd76/HERuzKITxj4ElGRltIHv4XRcyPJTxX1RrPDF1vE2tCFA3QNtOAnRvWyIeOtJ8 lbm [file] smD0AM8WuNNbXMPlDFAmyXReYEd9D56amHSiONlxSF4YNZZ+Patricia+Io4PODOzAOMtDJGwYvIaPGHPNiTb C1RtN1ETd0GnA0NvCS25fQrflgPjACikQF5WFF7vDK ZpJGXCLV0RnUKgpZ5gcxG2MbUcMYNNVkNpU31bkRQnXSBmMGU4ZEJqZg7UZRZfZ5XofeMnmRoudmWiRL LuGHVCYP4DZVfkiwBhvFBguRoqKU97xTjiSU1YSq9KFlKuUI4iur9OtNOcIw2UUHY5Iv2ZKBLqONVuBZ HjSAG9VSKtEpQzQTlbVLKzRZGlUAK1SYAdXARnTO7J XdJmQFAqPdarWAWuXDEzWHXaiu2DEFUyZGD6NSm6MfTkNLZcWDUwIPzhNVXaPXVxWMT3QGHzQNCsGG4Y LhXbINRpHZLqCIFpTMMtKUWqtc4GMREkFVVaDVM0BBOsJJIjOPNwLAhxHFQeVEH7YLO0PKNoMIYtEU5B SkNyNCBkTElsJRoeDZEpFSOpwr4NTTIwWLWlQIC8QE TxJYYiIXCiDAqxWNQkCAInCmU7IKFeRDOlYH8QCgEyEZPxRBV8QeIfOVDvMTTnsd5VALNlXKBfGES0ZH XmBTAqLSQmMEmlOUCyUGO4IXo7VUMqRCYbVM6UQcPiYARfMSU9BSWaFXOrKMNbck5KSBJtMUSfCBP4Bc RdKITyWLTbDAbgPYXlCGK0SdPvPFAbBHHcMC2PEmPm AURkCdZ6HVbkPOLbHRHkpd5YMPGsFDNwPxi6NYJpPGPfJJRvDWbfSWCcRRM1RLE4QBPrDRLaGK4YUlDz SIJdEwD2ERVnXBVdPQGxkc9VPDBhWJIeOfmeIxLlJPOzDESdZGrxOKPuUAD6LRBfOTEdWJXdCY7YRqEy KSCaNvv4PLTrNFMpHMFmsb6ALLWkZUWdDPP0DVIjUT BoGNQyKUxcKNNmVTT2TwwoVDZlQAAtAS8YJyUbDSQqVtKtShOsBZQvYXQaku4HRCFtMAOfQLXvKXCvLW TmOJMyAFtpLHGlJXXqJqIzXTXkUFNxRT8ZNnTxPTPdJDL5TEbhYBWmLCWpzr3RZIAxJUN3BFG7SqUgGM FtYTDcUUptOCSfUEFyYRdrXWEjBJHzGT7YTxSiLWGd UWA8NvZjFAFoHHVmbl8MTOBmEFK8HhS3GLZrCDByNGSeEDdrVMDaSLWqDEQ1VAKrAHGgAC1PQuQeUFSj DFLqELGaNVEqQIDzft2IJQHrJDY1KnK5JnIjTTUeYGXcSVfcYJJvUVL6NiChONQzBWPnMV0NGzZpAKNq FoHhPoljFMJdFZWuqs1HBMZwPXW5YIG3LWFcVUDgKV KuSJimKVRlAHR6OPL2WXJnXLYhZP7RNbRoZIVpXzI4JgFfCMApHVMkhe3VDMQeMEV4HlIwSxDiZNUuUU AnXGmvMFLhAYR1SCA5ZEBfYHDzUV9MKmBsHDCgBpI1TSFbIBJpTWNirq5XVQKwJBH6JwAuYfScOUCfLH KaPQbsPSIvBKL6CYG5VGCiZMYfJD9CLiMwAICeNbj1 KVWlZEPgUQYcah4NBPDmTRC7ZMC7UiFkLPPlRDKiWUctBPXmVSK9BjZ0IMCzDOXmZW3ZTnNaVAAqMgi4 YpEyWIMyHVTibl0JOQGzVWJ5FFbeYFZoIYZfKQHgUWjgWGUeDLC4YQq9VUZcCDSeGR1PAiKaIJZhZcEs QuNkLGRtAQUgvz3EUCCzTEC9DBK5XlXkEQFgIFBvIE imIJMhBAklBQEgVQVvFMBrWY0KAtEiNFNfWyR5HCscWESnYEKhhi2JwFPqzBgpzs3REZvXDk3HuXofAO B1YEcaFg2ssUZ8JtGkQQLISf3EipRbBCAtQOTHBWdkOYOgZADfUAUnUGVmAaxrWHe0QMF6YAf5XNRzWY U2U9GfMpAwJkM4HwU9CaG5LAS0WMVxPSA0TRW1LUm9 UCI6QsOjHeF3RYM+ND9nDTo+Zm0Sl2OzltO8uuUkPPx7XPl6IA0LKGLSR5UMXy== ID Date Data Source [id number] 12/22/2020 06:57:06 PM EDT [facility] Name Value Range Interpretation Code Description Data Alisson rce(s) Supporting Document(s) ED Provider Note [facility] AGRFWh9iRtBDJmJu52/RBZcoVELlj8SaAIchXZj6OYhfBMGdV8DhLAE3dE5cRLT9KVjZLcPpMoSuCcXg lbm WqWszFUcHeUQWkGikNBtElRUfrBoruhPVbEN6MlOU8EVXlN31cJDZoFCTcM1CqNWA6FXq+Rw8WCOYnpD IxBV1BJxfA9K3aUleISs3+0v0P/o8CEOD4ayirDwFbXYHuKSis+7LZDwYPxLt+uVKs4y48u1shTcDxoc gz3V6hfkuS1YN9nkecS5bx/OtR5KMI5djm/75/jRKr Qtxhf21DT465+33ic6uMnsmgpdbw4kIjj9qdy/ABh2E7SbjDnwn/sx3wlss62LohP5E+3DqYzW/S6Wh6 /Xbrzt3XE/Vp6/c0ecTUqZ9MWa2olam/Wp03Oe06Z53O1pbWSh0bTf0khav3yl5Ri0MFeO/Oex5dmsgQ 0mUNtlyxtHx2nPeypY9cCco0x+pkPvsyGmbD+DBbpL wwpMt7YqkBZEcvSD2hj1uX88WmhxVKLf7ysp4FrpWgCWMjKicEJP1bHABQpNKSTRU8M7uPkcFK+EDHx5 CqgltTRGlWUptdWrlhgjpwqXWDqWoSXHwSvC4sbPReWbcW9kx0BXK4V9PhFBgW3fpofsBeXsvtFOppx5 n0G/urWEHf1k3t9uiDPrq33Nm1jgsDpYGrat4hq1Pm KBSlYyfdTU0wGVDCN9dwdzO63VdnMl6glQCL/qUg4z+QlcdyihnWMdpCPPykQVVR91bqUVQpL1EGSDov HefmEsVJdP0xIrZMb09VcUXco0uTj/Wilma+nkYjdRsgx/qB0nYKPTo6anElAx+kYd/dzazH1Pri1NGUyq [file] b0A54iaRNeUSnhVD1IKRM+Patricia+Ms9SJIAxXAPdSKOhTwTbQSUJXmSwB8HvG0TUj5OrJ0OmNY73uChuji HsFFgwRV0YQU4cADEwVNDQYH4VhYFfoU4gvcI1AyBh BYSUQjEgX96wcILpIQJdIVFsUMAqQi8PRICcI7RiwiHdfAvtykFlOBOeUAXLUY1YGEkhyxPrrJIfzQrl US46mYhwRP1YJm4DGeRaYR5cha1XzITpWa0QRQY1Al8ITYIlHRObFKDnPKL3TCJjIdUlKBjwZBMdMQCc SQH9ZAMpYJLuQB8UTfGaKYZkBZX8KaSaIVQyTKWgpb 2OYFPhRVW9OLM1KfQyXIUeDTWsZAhwFDWiIAMdNVY4JTInWQWcHV6WWqMqRHYvHVRuGNVdDSZxGPRhuo 3NXLIbPYKlZrQ4GXUwRSTeSBHeFXcbWWNnIPV8DwBgKNTwRDKqIP5ABpMcEABdIXL7SMApJROzHLQsod 9XPUGxFZOaAXN9JjOzKQDkARXnALlnJIZyYVT3ScMa BJPrWYZmZV8ATeKrTIWcREM2ZantLTVuJQJetv4NZEBrKXKqYEv6OURxRLCpTBKsCJznKOPsUGX9PnQh VCHkXRLhSV4VOsHmWOWgIUY4ASylABGmTCNxfo3ZHYQxHXTxDbbbZoXoCVJzQUSoZTdaZYDvBXX3SCG8 NWCaVFQsAN8XVcSdORLfIjZzDcDwDKQcYDFdxl7FTQ BwHFCzYAZzVtQxHLHtUAOlJFgiGKBbELOaQhwgFIRaGLDhTC0RLxKdNTBqJwN3IKzqBFVkWAUicc3KYS KeYNRyAvTuNGQbMHWxRZHfWAggSWTbDMS7GmC7BODjBGMrPG3MXjRpZCTsOwc5GZdwRUNdRGVxch1MFL TcFBDiMAV6KnEdMYIhXFWlABduYCTtKLWbDHLuPMEi XHZuTR5AMpRmWWBlIbDqYlOvHHJcAOTaqh6XLFZuLXMdINWhPzOmCUNpXRJfCCjzCZJkYVQfInSrYWAx DFQnKG3GYhBrDZYiCjX9TeWbWKNtAUAdhz3GHJGiEMVhCPx6NhTcXAUcPVUeATzsBIApLFUyNeSeUQAv FBVlCU3WZpJfIEDvHaL6KPgrCMXuXSMokq8FVPFzNI BmInR0ScTqUXYhUQAuVJbtAAUuSZP8LZm6MYSxBCVxQA1SCrHtVIFkDMA0COOzMEDcQLItzw5IZZMzEZ B2ZBZxMULjBBRpLKNrRCpdMEVhNOK6EbBlMDYxABEzCN9OTuKgUNIjNNXuHXquVEWyQCLtfj6DMCIvKP O6CyAeYuDiHHCfVCYeCWhgGQAtXMD3MAYfWDNyHPVp RG1ZJhXjLLBcQNE9GCdvFYKoNSYith1PCFWuVXJ3EoUpBnHpCXBcQIWiLWstBUDiWIK4UnTvANMxDBRa JF6ZPrExAUDtGNf3XGFiMVVqRDCbvr9BEQAqLTA4BAc2WZWvHLCaSJStPLtyMMBwESC5FETdMIGjTGVx PM8BLqRbSXNgLQucFwkhLCCfDOFmza7CKMKyHHB1OF BxNgQyWAOdQMCjYWfjPAXpHCW7LdBsPVQsZFKuHX8MVvZvIMLqMZc2GGFdYGZsMLVgds5HDEGtFET9HD g4VCRrNQPcTPPuYPyyYVUaCSIcQNV8PEFxXGZnUE4LWxWeBIqxMIXJArn6XPdbL3g7LFF7Do2AG8Qkt4 GuKTMxRNBKTZcvMF9ogwTdQVVqEp6BW0oKWfq9ISLl IBUyWGY0ImCoCNPvPoP9FXZ1QxSnOhahRJQfIP9qGWdnYYEkJZDuVIujMHNvT9KpVbp2UwVyTXQfPCWr MKQ8HvMoYR6MQj2YZbQ9QVJ9qSZgSn7CBWYvGhzZNjFqXS9BHWe= ID Date Data Source [id number] 12/22/2020 01:28:08 PM EDT [facility] Name Value Range Interpretation Code Description Data Alisson rce(s) Supporting Document(s) Consultation [facility] MOEBPv9lDaKPXoNb50/SVPlbZNDvl5ZlYWgmTXo8YFtqSWCdL3RcURY2rJ9mWLM8QLhVVzLuXuDbUcFj lbm [file] [employer]/3qWtVngBCQpbWWRQIMj7aEAjaNxwd1Rr2tOfgek0EgvdgcoGOLMaY9X1xPNRiEdMwRF1tsUGQeHCW [file] AgICAgICAgICAgICAgICAgICAgICAgICAgICAgICAg IMHxNXKnKSPiPHUaPKVbCMRyHXYyNOQcAULqBXVqFHAjEMYbZZBjPAXcOCDnDYGlDXZxFLNiPJ7ZTEFj ICAgICAgICAgICAgICAgICAgICAgICAgICAgICAgICAgICAgICAgICAgICAgICAgICAgICAgICAgICAg ICAgICAgICAgICAgICAgICAgICAgICAgICAgICAgIC UvEODqBZ0UKZBlSQHxEAAyGTFzEZRmARAlEBWrDVDxZHTqSFAuRDFeYTCkDODxDMArNCUuCQQlEPRrHA AxZAMgJDZaHHZnKTDlHOIkDHFhIHAwHXCjBVSeVMQsMKCpZQHaIRVzLFCyLMCtPV6DEUFhTQGhVEUxAU AgICAgICAgICAgICAgICAgICAgICAgICAgICAgICAg TLRdWBEzTKRhRBNwSGOpYOCeAZXvCBFiXWJxDQXfSEAyOBJzADVdOBCvCCBaFXJhGVXxNKCgVWGgKD6M ICAgICAgICAgICAgICAgICAgICAgICAgICAgICAgICAgICAgICAgICAgICAgICAgICAgICAgICAgICAg ICAgICAgICAgICAgICAgICAgICAgICAgICAgICAgIC PhIKOwIWUxQZ2YHSPqISHePLRwLLVgXMJwNMDcSUKcZSMsTTZqTCIdVUHnJNHnTARbDFOfVQLoRFJhXV OuUVZzOODqSTGrZOOkRSQgDJRjNYCzSLYaXQWwLDZeCVVtFAXoFUXiJFUtKDQgZGExEI4VKLSsDEAfCY AgICAgICAgICAgICAgICAgICAgICAgICAgICAgICAg ICAgICAgICAgICAgICAgICAgICAgICAgICAgICAgICAgICAgICAgICAgICAgICAgICAgICAgICAgICAg SJ3REKRpUHGuCPNaNHYaMDJsOAPfDMYhYPHxSVLwCDTsMWBuEEAnNNGnCLEqRSFcKMLcSUPgYLAuQJGf ICAgICAgICAgICAgICAgICAgICAgICAgICAgICAgIC GqUEMrODAaYMLtUE5QVWRzRJTiSKSiMPNpQDQuHWFtJEXmKPDcKUZxQQPaPMJaZAUmWREkQSTdKJVsZI XvAMHrUDSpTIOsOHBuPSYwZXGxYBGtPRLmFBXqGXZmUYEiZBEcXCTuOWVdRWPbOTRsPOUyZF1GHE83jY Wcq7Q3LELcAN4txfd/Fs3FGXubjsCaoITzYA0KHaBl QE7scu4TZwTlHA8fje1KGFaDQbEyP5Q1dPDzOHBtGECLOfImD76tBLuxMk71WCcdBAWxJsOqDYt5Zv3K PoAcA9wxSSFeEgT0RBObIeQ4UAWvPbG8WIJsPjUgGWNtLUPhQQIxQLJEKO5IIeJrL5ZfsT52ICHWGi1+ VVsivcFtBirLHpEkODLdz8PeRZh5UZ6UXHPoBdviy4 VtZqExJKXYNIpzSE4QIDU9CVX1XNJiOv0LLDYzE142unBjWF7PXd0XEqCoWL8xpn6XPnYtXTPnCbyJVy c1FPgmNL8YbKMyMOfDw30bdLw4twJojTWSoOZ0QC0nOPYjCWOAbyUnHQagRS7BHYP1AECdTmTeOwApPJ AgNTjzDfCRVGeFNyOdO8Cac1OmNfY8TRPfJpRyZTys UGFbSxF0TF17hNbfXH3VVFNlZRKbAL04OTSnODRdEx7SRc1ONaZvJY5tkz9BWcQfBNNvJohMDvf1BUyg ED0QdAHvP7PosUTnw6nDEpStD7AMJPEpGQVvJd8IZXTgKiGnTGOiWLdkYH2yXPVvJXJClVdlkhI2SZ6X BA5lkgEvZW0BLgCoYz1vYe5JDrDjR7NiQ7QzDFYcGC ZQUYypYD4PTXkhHI3wZT1Pz7TBaYFgzG9dhu3ABHTzOAZrYallpi1EWfzvS9B5rCewMEVzQdDrXGCSOG xnSS8FJGFsVTX2OZOhYbTxSUJWBgNwU44wBN2RG2Qsw45oZkQ5XSNaQfHwKTnlOJ10cRksyqBwmMYzsB qkIN6YJc4+DQplbmRvYmoNCnhyZWYNCjAgMzYNCjAw HZOuAOXjTTNbFvJ3OqUgQo6QEPVaODKjANOvFxGsCDZqWXEmEWbvCXIxOYHuJatfDKCrJZOmHR7CLlUt HQYvSzUwXxJeKRKqHPCevy5UGDMsIZIpADK0ClZbOSDdLSZvUAzdLQHgLBNmDrraVESrQJGcHH5VYdFz IJVtECX4LTMsDHRmPXUcix2TEACtKWMnWbV2YuIxPE TiYXOdVCacHZXbGMQ4FMdfALJnSIAhPX1ESpYoXDUjDWmjYvNqAIEaXFFxar4YMAXuMHBmKTU1YaAoPD YeCYCjMNngCHAsGPKeVLT1JYVvZLLnJS7AGmGzWNKdKDGnVUAcHWDiYULazu7PMVSnKNAkDtWdSAVqLY FaYPZvJWlnAFDdHDTlJiE0JBAlVBMvYZ2UQnLrEUKc XQG8TYCoNQGkPMNiwh9ASSSgWNCyDHp7DEQtITVcDZRcWYikLWFnMFR8ZYV8LUDsXNSdVF3YNfDnKKRz WWA8ZvIlPOIrXVBiba3ZTLMmGBLkRyDgCNScAKYjMYUeXTahDVHaAEO7HfLzMJJfBLHuNA0KXzQeAPSo XLmjJkIjXPRrJYTyfv8CSQEdJMApPcI4BFSfPYNiQU BdFScyGGXqEUW7ItCqPKYwIPJhKY7CJtCnMKMvRxupTotdAIRaSDMuje0ZIESiHYWbBQC7GwKrAYWeGR GlFYfvNPGpJJH0XGP8ATErAFMvKH3GPrUlFOUqEkq2FLXeJYTaSYMdmx7ADGOvRRCbBZe8SBBoCRMtYL WfJZbaUXZiXEUqNLn5KWLkQEWgDJ1QYjAhFXBjJnHq VEEiAZGjJIIuer3FCNAtFYPjYKB0ILYsYTAiIWDhCOgwXSKwSJTuUrbkWPXrRKSbXA8GPoVzMEUpLqLh UPioQKUrJOOtuy4ODGOoHNWnUwDlKFOaJAKsDKTrRDtzTTLfTWYiDcx8WLAmHKHuEP6LPvOxYBozXYIQ Out0LZroV4i9DZKcSh5ZZ4Ocw8QuWfPeWGVTEFotDD 9phhCtFOOsDn5YK2nYCusdAaznMAYyXOyxJjQxStU8Xts6U2RcQdGzCnCsANpwBD2nQACkJCZ1EiB1KZ ZsYVZlDiZ3ZSIiLnKbYYMzJHA0HNUwGuReEF3RCi5HHjS9SMQ7dKIwRt2KLaG7GMdIGrCpTA6RCYx= ID Date Data Source [id number] 12/22/2020 09:35:01 AM EDT [facility] Name Value Range Interpretation Code Description Data Alisson rce(s) Supporting Document(s) [facility] ZZOLJr1rOnVCMwTow7WnBnMzHQAgIW7ohix0A8D5dHKcY8YauXVzk8goG4CzE0JoRFYmAHGHRE6VbQSm jb2 [file] 4hJmhrSgwP2Ykm07u+Cy6lfp91L28WIoiBtRU/On5fR/89jNqU6+v4fR2/b3Kth26V96jb+zp+X4e+executive vp F+9E9kvGRKrRin1vWgM/sN9WFvsv5jL4QF5Ki9jdcX OPpmBHIcfXc9/1NjC1ZPL/qmo/xDbOpvUcrU4G/Pkc+s1FOrO54/zyc93/nouyug/mKwahw9T6+/z/f9 D2t/8/+M1jiE9RH4/ric2isG7ev5/phQZw5zAn/abQfS91a2ik9B6/ppZjAx07y6JlAi7/PE7zvX/b3m ur/J2NfuF3kC91hnshS7J/NordWlWxvajoen3SIjUW 5ylSI4HY9KmqTDuRzm+6V72MarGklw3t/VRaZ/5M2hP8XJ3bfO252/1ML5zOPW/h82fp+R/xX9x5lleM Lvs+F9u/BywL35V7579Hmogj9eo1kHU2EGkXD+3Zh/69I1Hq78+6inSWJtgpjnc7gjIFEtakH6+/ue8P Ugm84sotnbo9LwUwdtw620FIt217Vc023a6gyXLlOi Lix4wJ31J3KKp9ce8dEaqri/1gaT3d5/8qdCxP/SR0VUf/Qd+h0iD8kw+ZNeMdwffStY/fCrCr06/Cqe +ovpn/qcvq/Uz4WIof/p+7fOyG//8X7p0CBtxxrEZpx/S3/L+oP/+grz54bsgUooE654V0n0i3/mp1P+ m+Hh89Oh/50s5VqBzbB8C85x2nNXi1qBi9/plvl/+N XfeJTpf/jcMz3ujyJ/rQsknz/13xlj/iaabp99ir8LM/+YlhhzFJ9S9VatH0S6dNoeECxG6SVUNoF9Uj /aGWg+q4bQq29Vfdmo+Gk6puswm/6M3XdDhwT5pMmN7nabct/1BGNhbl0+08QtD4Wv2ERLV6ZVlKp45a SI6jWzP+ox9w3hnF/os9b70c1+7ye/ep+RLki/47MO 9F/wKy1+qw1E58AIH16+Vc9+4Pj0Ae481U2UXQ6tmVG8MH037C/86n2+7/ufm7241/fIdA5BW3Df6iDx f/Kreoa+Pk1RW25JAH/kA30d+ia/bfklv9Zq0Zg6/d6SWjd7xFCtiXxzPa+/+kzg/2Yg9/g0oayhjAp2 fH62cT4KXInY0oFpb1KwqG5I2puDw2wz3llL3RC8zc MV1R5i5JM/nQ/EDqyqssWfrbE5Q4kMco8ghNc9nxNfD1i5MrwX9EsYy/Zkz8r6Udeu5Ox6g4uqapbsg5 9V+sL7G/ibdw74a3nd5+OE9QzEJ9TbMZwAN0WP4/JXYX7I06tav/gW2jak1d3G8RQEX5q1Yz45XiVxjm eg9um44mEck3+1b/40ytR2rp58+/q4JnF7F/5vffCM dEP6XS/ovvxZk1/VsyMdv2/tj5fpHB+Jek7UE/PRhr4b+u6rryW/Vwdz7rr9MeQM8yEcmsT2KtXe6ixU r+ia551flrfBr+320QZt5ZtXos6Yn5qooU+q7UxmMi8dY/9Vhqyl/1cdQuyX9VotYn336QL/cqDI750w uetfg//F0Z2hvnb6z5qdSRX7OEHDplToz5ww52rb2w 5d/5tg4kz7IN8BPbaGa4/6r+dRkI1NU1bpzseO2olYf6VhV2oj/mvJr9I+xthAdnc7Id6X49m/rgfNoK /p0l3H6aPk2tvKR735/h7BP4O68sFjwSrkeNzj+fDJDFs7/UuH3OulpzgvYIucttuGbz12+AmZPvsU/2 dFePSYDtS0Wnp+zXjpsy/vm0DPc04TfrXgIjC06yaI ebxL2rMYN7g9feTcF1frA03AeE5+aMmroIBj0fPvAab1EStXxaklzlkhnKGN4WiYPx6s0JJCZyur0cl8 Nx3xuf3m3iz5PoNL/tf/bOPOR+NCtqyv9v2/6ep8Z99m/1tPM9MuWi7Kjo4hZ+rGwFEy5b/SL5Rx7fvh Q1FxIJotxm919PuI/abBCXd5T7mhQUse8zvX/1W2gb jrBUv/Se7oqv730YWNr+eGM59J0Yc+lfWM62+3uP52C+rm4Lo6CJ2jgI/ks5H/5VcGfmXgVwZ+ZeBXBn 5l8/dyxD91evU/kmaC9Nh+oadXUpFfe0U59pydjWr72MgpxqdnzzWofYtpK1+kCQ0yvlAHMa+/yq3kE9 hyklSyWh6HuXUI65nrEiiqABOcHv+njodfjYpKvuv9 T7WbHbi11prjBaplZta6hX+66/0T0Fzr/VJUWS0ndz40T/VaZ70/75xb5o5m90ZnlzZ+CWX+m7Gp745/ 8XGew7agTcil63D36Ny0v4Bt+6z3s1/vXO9/J9vjvW1RvV/vEK403gf8/soi6iaRQE6tf18Tf0/tyt/v +EhTF3t5pX6fhd0IkoFOS+BXti+ftH3X+7bvet/2Xe +P5+4ppHeiR3eAyI5UC4Rk5j5xt38bWTy/wjNDHb94e47B903/x3PXg+O56/6v4ECYlR40sPqD9EvhO+ Tlo72Mzl7h/+QLKi7c6o1LHr9+D6DF6KB8Y/pA+uW6O954JJgspRTnemzp+ft8+u/F4fcqCos/uvYR6C y9tM19f+jhj9vybt76T/gZHJiI95u/RCG/dVC79T/8 qup5+LF52QkHuniziK/x/mk7XDov++aYGf0YRK3A9vb97VcfC7Dthl4MOH+f73r/hBx/dp5pynQjd9PI /One5Iao4+FXZUO7/q3c634e6n/1PiN9I/09h2NTpt1CCjrfitabOe63h3CS/x3ov+m/yjafwk5y1prU /ZeanptsjqpluVSlxYVYZc0TPSTv3p2H2521Z/Krer 78aoBfDb/r/qQC9kRvkoL8Xqr5fmpV1/JR3ImxTVuw5hxeE6Iib38+QsqhmaEI6KUdQ/ks5LPx/l0vjL j7RyPu/zIOsd88xy/VO3d/fyS/yjwD+tb+ZEru3v7UwqV6f+hpFDzi4ycshmRyOp+NmEhfSL/c98T05x 2+8tfy6jogc6gco0H8AlJVlx98icU5lb7E2cm9bq6m MrLuhiMwqR6CN6COmP+qC2DyeG+k4/dd9/zGWA/SBel3/ClX4I7kp+q7l4RIs110/AsN1Y4Iy6Mw+K/G jr6pRu82irv7Y0MP46R2txy/CV5gxXy5D8FnXY6r63642/mKViTj7gGdii/vbl9n6b02PVP5vzZ3Nj7a qA/2Ra9l7E0M+K/GRv/d17/hz93fd/zrmDkFsQ9HS9 +gD0sh77/81TbwQ1Ymj/srQpcqV5731i08j4/rc7wSpZQ8s63nmQ0NVKxgGnGU6PafZ2Fk3g1w+2d/P+ KoWv8WX8RV265qLIyn6b29cNbk+63e/LF4Gwgiw/cg5f6G9Br/Snum/+p9Rnpc+8sdnx3+M6jM7GO8ip SN9Nt/XY33tz3xq+tdD7re/V9PfvU++76N6N7mnrY4 wk11dbcWU1i1JN3QRt010ZOxs4fzxrM84/c9+VVGiye/yme7+zrdV9Lrf7apC5zeYskAR2MvcNoJF6YV 6j8kjbCHvsD5De492qO6WlxN+r7p4/JnB7/wqpi8XvxHNPhDJwuNdQ0/w7E/6AO/78DvO/D7Dvy+A7/v sD6cmgblvuGcgt9EeA8H1xAmk7t9s6OkgCQwFd407q biZRrwymeffzf04vDeImWn4Hj53/jHfm4pv/XJxajTjT4WBq/8xi7wRIhx6fx8HD8IY277H/dnuZ/1fu 6gv2VjeSiVeCfG85w2Xmuvxp4At+8+/vx1jlYsmUE/P+sc5ts87h574tCv4zy+EskxNLhqgX6jdo+/+u WH53nLa9o3eEXR1381+/CrKanLh1+VH+VJ5g59qv3M 9lOv2HDfzs/T8/yN1dIMh4QxYI7kkJ4W63Da+ehyapg3qK8fc7zb0XJ/9yv7k96qZDe/yjaZ/Jw4fa4i +VXqMu/910AWwfNAXJg2oY02K5ocqSCv/V+fE/eXeJP6hgoiR+a5fjZFx00wjYuRUK7oiGrP+h4rarwb 3/X+XpB7EfmFov/K9X6m3/W+r7v+9YX+m+ie9cxwy5 Elm01no75uq6w/wdwfKiF3u57UarR2XO8XxWJ0JCmYte62P79L/aT3GDx16pVoB+G00fc4U59thqo6N6 evrPtPFGd6W2V23u4WdfEfyL7vS3yx1UZTzdvV+2e9vcEEhVf90ljjeXjAv9/feK4/L75z20aTbj4Eo+ mu2bqkEpA/CrnnzUJu/n1316HNLj4Nhek1fW+kj+/4 WLY05QH5duX+AQsxIw8441KYXs+H3PV+yF3vR/Kr9/mmJ7/Pq6Gg1tKn/gVeKM07Dat2WufMP9Y0/Rt6 1/fxl46g5ivv7H0z/bs+Wo45F7V6gpYtjt0p/ipw/ir0ro/KAf2Ar6py3Qlac48/GwqFvyt9qRcpZdw/ fryZ18kC11dT43zN94aN39oW40wG41gXwS4r/hx29/ fh6CVCyDaie/90wm1lt0W8ZyCW4KZ4P/nSPcCy5Pbu36Ho/Lina+iDS5FrF8wL5dd58hfy0JE+E3/V++I T6PZw5jfkp709Rll0h5OM42Whr1MO5fkN+YPjdLwu/8SnhE+bD2RkzHf9w/O6XhV++RJX4YqEyzMT9m/ VPRlz/SHGnm6o9dnD+34C+pz1kWPh/WPCnl9T7B28q wO8b+N4mRllDRkpaNru8SynnmzGK/IiV7oTjngQSCcQl1A8eCU0/74S+8/onY15/WvU1xfO0garxVBq4 VaYvpF9/XcyNfK4/SvkG81JVq4Rpv8LqW1+dz/vyagu4lMg0L/q0/AAn+ZG4W5H9UODlUBmudz4jfOT2 G3ACT7/PgfTA+zd+4QSdlu/ixJx+86DRL2qVC/ruu7 1yFD7KE/36H32nbO5HZ+15Y3ze+F96vc070W58B8T+68HYd/0b+/Ln2Jc/s57KF8g/Xf6w7/5R7Lt/NH [file] verónica+/64F3Id5c7XWY+Lu5/fYb98OTbY8C6Jn1hh/Mt7wL2YmdloL5blU4xa2sEln3XadE6b+zvHOmvWu/ 6w9DFzO0u7Kxl28twuICMpv+8ryur+D/EW2I7Pp+8c bdWlS0cbQ+p/oe8E98zaE/p/FaPi80Wd+FvkJbmm/15bVwZlALnu99gqr+2tBXPH/b+/cB7xeiRJsLe4 1PUXD/ctC7lkItd9hj26O5l/Gve9mz9692k17039pX3f6ryVkameMfvw9z7l0gv/j3Ke+lvef3hpMBN5 tPdKC6bFDpgxLEuete/q9vvEmn5s9xTG28w/Nued4t e9njxis5455xeLhwDedEXS617mFRoF/f+imNUqaxzKjGo1u+5j5/79Nwb87kreBZ/F30XsDWNU1giutc HJiR8+Z3NmR83/OOib+/5n8mbb2uPkbL7dlViKpKzPIY56mpzAGu980EElWX7YhIT14tdM0/97yreZ/y FARZAD/yfrNMvCbsGK7/j97F2toe/vz65aVmc+++TvL6U X+/o7Pm1/AJ2F/aV1rX0e89BI+bR33/eb7jdd+8/3m/ygDX8o8qZ0E87t8QtU/5vvFblqBX//Cjzd8NK 8qwDm+8yP57f8Btj58+4G+Qxs77pkBrWGMZbBBQ7p+8ffUN/9h0fmc0/lTvv8qFnci/j3l+JTjb75/oK /hKDPIxCd31/pMR2lXCp/6CuVAX/HvKsernP/6r6cO YH/1bASlH6416J971UjY48abpR/+a3AczS9t6NeRQtMF/GjG6Q8Ww5Sposp//+ypAqIO/c1/PVHA/bvJ 3MwK0Up6LZ+X5+1qtF9wbFylYz6k4ZnDfNp1nryG55fw/FK5i2WT9EtivckHWN4prGzd4nuSeCLeYz/F 75U2qNcEqtM9A+tNnmvrEgqq3PlYQ+1Z4lcH+or3lf d51B5TL1OmacaM4dxClN04/0pmn40di/+tr8pHj380Y/q+2dWZvvH//j3l+JTj6/zHY7SEjpVwzc6l37 xyoK/arjhMa9Uyd43wVD0Ge1adUvn2hKkWjWJzcBzze1HobTZj+UNhX66mXz7v+EUh4ZvUGJ509/2znp 943As02pB0HhO0Ur4k+XQbA58B+10sukj84wMyd1m1 [file] Alessia/XaFEb6uwncyXxxmKX0Wd/JegGpe40ayKhaTZa8Bo31rkGRa6xEj+d8tXamrXPgHHFmaI3jRPK/cSJ ufcXhutLzvykGY8RMoc7hRuTRo9PVSgr3pbL5kweAU1/Qmx8qUVOK7ixouzigeJ0Vv8cKwfbXVC2Ofeo zoTiOGfaMrTS3PU5xiscnE15v5rDecFl4znLP3jiK5 2fXdDE2jLUgBGEfG09vuXf6E7G6R/WoTSL83/r+yz5aZKIxW8W60N/blTNVovAiedadD2+xT9OG5Sxcn 1dwotiZxIstVHieVya/ORdqW8kgDQ4xzUfdOAgNqLLNFfJ0n9+5f/CY7D6e7y2W1j87yCbZhxEsB3a7l 9HeurKx2AV/0D+iV5+leed/YK+21a7N7d2/1C69+4b ByyEpQ15/w+hfe+MMqD7ihH37+niu79ykPHiZUetU5/dIvjfaYvfE+oDfeT/ePv7yr3ItZM+4Necphn3 7ax8b6sf6Cipqsiz6+nekn6UO2H7/Ue/kVeBtduGjtkn792XzPN797kA9SYrmh1F07nj523fLhV/3upb 2w3G1DMBG9w7cxE6l8H8694fCtzW0R8095c8cnN/3V eud9QO/yX258wJ88qxv+9x5oDuZqW7hJaNkn4Bbi3BBsD5d8rwovU1K+Y52v0oyB+iDgG5ud+iXsGS71 weaver tire cord/vj6+3Kc7Xi9Nw/Cn7srh8Rv26EsFWtt16oug577Qcrd58BPBdRxddpCJA2O3f1XoAZ3/tYjvE/5q [file] xhcqEq7jb+VERÓNICA+eTVh0sF/tbCVaN6EyNU5lQ61pCbUu [file] 3337+2++/+23P/gox843/lc/+fnvPj4+K/g3J1842k uP77/54ftvv/i8V669Ys65Jnj2sB+4n5uJLg1488104fd//fj+F3/3wy9+2o914c2K10E//fX3P//m+1 ++n/ubb7//7Q8fP//mb7//5puPn/zo9x8//eWvf/a//DvvltOfP/nuu1//0PP59357nnqntD7+/cuff3 a03f047/23v/7+Tfzk+5/55Cesq6dc2/Wf/SN6D165 +Zcf3/zsb/+cu85l5M8dn/7im+8+fvbrX/3mJ99/8/OP//xrV633Z/n70z644V/47P9n/6d/p5hXWn+L +e7XH7/99m+/+/EdXlv2jq0+floCq2k2i5/73gVuH3Sd793//u//+C//9Md/+Phf/+fH7//xT3/6w7/8 yx//8Kf/9PHzP/z5H//4p4//9h/K+m//8eOf//xR/9 rsr70S+8e1/fhzJfzJr/7NP+aeSz5m+j/901//O290a1Zg3llq/+h57JvG1I209mhT/wdeR20sb//n5z 0UzR84N1z04/1KC4WlGMKoXm9+2UIiG9E6ajC1DB5yj+wcF9n2J/j+j//9j5/057mWcz0+fvP9r3//7e ew+vjt3/32h2++DD+PBZTvZS//9H0x+ja7m6+6h3sO 8J/+ncF3HGXnzw8tiq4vzt//+Od//c8f//KHf/3jl9I/W2wEhki1T/on/dass9nE/+wvSz/M33z/8Y9/ /tc//sv//W8qr+WTb74wAmN/zVN9InoF32++/+3HP/xfn3X/x3/+229U8dKe/dV5VCI4/+WHv/4vP/w9 /+l7FTx1dR/+lOS/fV1A9AXVCnG/UfnLmxyBHuoseW X8Jn3E1xm/+a4RA4s01n/54//4t1Pn/m+P/ejn3/zsR2+knc/Z9znN/ue//Lf/+BdPn//hV3/405f/d3 /h/vRPf/j7//Gvklv88Vl//ud/+zOckY3Mn/nPf//fwf2mRiguCwv3K/749//7n//x7//xD3/+8cd6g/ r+knGO8XAM/8e/fg6Xf/jxDz/52S/+7t9+0eUFbVy/ +tU33/0iI9vX2Wr+/z32Cd73HSO1/c0f/rc/fpSPf/6aF368aJy9Gio2eerc1Q16388E1+Obn//w43d9 om4Lpubys+rT0hMWGM85/ORnP/f65795xTY9EjaLjwtHq/6YoUViNpskusCnyZUvFY7DOI5pm4IbFvL1 QSIto8JgSEinZEp1wNWqRCupcaOwz2NrrvtqR8Fdg0 GwYdQdJNVlUePdZca5SLFqTwP9sATuIfRhSETfT7JcEBZkOnK1SkXfBZVMQE5YBMEnvsTuQcJoSET+Pm AjVZ1fblkjSXLse7ZqIWvlHDtyNACyA6V0cDbmYSZzA9CtbH09UCViI0MwgrR7XKC9PKExPxGzMKYxjO AxOSAwIFI+ZpRhCY9qqtfdEATcq8TjXLooFPZ7cF3w GRsJGDPEVZbPWEolLdM6c28dozBRJZDbVLOvNG8EtlEaiXicajZwjFWlFVV9BnFpPXSiDwUfKYK0XHFC VDZmGMRuPFLcMSHzI9DbnXgpDZrKRXAPPCoKJFgqZzSld2X2CQCrtbXRU1LHYV6WWovxEMEKIwrWPABn IUu6TXGiRP5DqPHoXHS4EXmQLXWPERlGLPppNwRga7 L6FRWzN8OkNYUlgmAkUFLCGHylLfkcPY8diSvzdvjdU2WifOYwPWWDVJRyOOEeHDDjVKCuF2Eso9A0J4 PvYHbMLVCAEEkZFLwrLgF0d89cfaWGBOSfQBMwJF1+VB8nr2DvWq0MBFUrSX7yrcz7OP3CiCNkWN8NLP kdiqMxB2lnubFrRpQbRFAMGH7vX9AxfA05WSK+PmVu SG3mgkb8eySiFaPoXRMoQTTqMGFgUCcxDHEbQHHjVSIjYQT5MAX1KNQxGgKtYZVsFzL7XAduDWLgBBKo rgUMSUGgWKD3FJCuHOKzZIVmGRMtAFabEYNnCMgjXQq9LVJiRPZqAR0nCnDiKDMhQNSkXLYrDoQ1YhTk ZiAKMDAwMDAwMDAxNiAwMDAwMCBuIAowMDAwMDAwMD n7OQLiWWEzAE2wPcZfGMZeWHQsRWDkPWNpAXFsocVLRISsYAFcWPF9DGJrJWFfJQGbGMiaNDKtKKQxAF Y0KKWiVINoZB3mIkTyTWNoWAE1UsAbWIReKMUiaqUNNOYpMEYuFKB3TRVrJSQlOCGzZNwmYEWjNBYaVe V7RSTmBCPfUJ2rDrHkXMDbETC1VNErGKVlFOCnhqCI ZKQlEBBxEZz7WrVgHXJjEAQgWJnwKQZbDUOpTYdyWIAuNQKyKM8oNmUhZWQoSMLdEILbPEFhDURegxWJ DVNuZJWhGYA7AdUdPNNgPKPiZUtdKOXoTAFgURL1NSQeJFGvUF5iXyEkBDGwPhXkJnXxQVHiEUYpxqMY ZXAaDVOqQWAgTRSbNEMzPRMhHSutUKToQTMsZvV0TZ SjVBPoJQ0gPwGeCWElWCF6DZEoEJUsXRDsrkHXYQUjTFLzQXToYCL5IWFfSOQjFUe6blBjxGNbDjq5Li 1SlBusZHE1Qq2IybNuNEIqUHRZYr8Cs881PYNyZEIZVfi+YsdfdTWzrSelNPJXRfS9WTPRBUQSE8P= ID Date Data Source [id number] 12/22/2020 09:18:28 AM EDT [facility] Name Value Range Interpretation Code Description Data Alisson rce(s) Supporting Document(s) ED Provider Note [facility] VAGBWr0aUgSYOdJi94/KAYvhTWFdd6DfWBwdICy0OPlyPDCqG9EpYPM0uS6gNTK0BGfHDxDvUxPrNdYe lbm [file] reinforcing rod layer/sGqOvnbc5k5CXhX2gwVkyruoeP2r6mpraOH62D [file] I45ojTAlKFtlVD7SPNC+Patricia+Nh6WDYEcZTPnURRlSzNrPTYAHdOqY0RdA9DHz8KlB4CcIC96hEidijGp CBjjEC8PCS0tKBCkZHQJPP9XeEPlkH5gmgPdVjDuKBDABrBhJ35yrZVcZRCpOHJ6RUOkLx5WDVEdI2Rg sjQlqHqnsdToFAFvIHKUUZ4ASLnhsmZotQVwpUkdFZ 91tCtsHB9BJj9QQfVzMR3hin1XsKJaGo1NZOC4GS0PFUWfFEZoURGyLBU9VNGuBjQfNGdfOQFlAWSfUP U9LBOrNVOlQR9OXkNqWXPgAkDlBNIhBOCrHUCdll6HQUFaTUGaJWAwJjTrIFOtSPQsEGscELVhKBVmJS G6ZIGjOYNpXH5ZArJwVEInWVPiJnicXOYrKRTicx8Y FMEyKDWzNdW3EhIdINTzUFDzLRjgYQKaORT3MtS5LCNgBCZdJV5XYpZvBVNoKRO7IPUwWIJmWWOjxd9N TGTlZBJoAMFcHcDrQGIzAMLmSNjaLPXpCMW0STUbNOWkRQCgEY8FXfJtQLGvEMZ9EEHzXYPaCYKlqz0N FGPqRPLpTJKkXlAuMPVgGAAtBRbzKERqEBYbDbm4QB RzTALsKY8NBdUcXCCeWXR5FODpIAYqVVFxfc1URQOpUYKkHkRfGHRfBZPiXWVyNAwyZMXsHZP0KyI3HX SfOBMdLB0ELdAeSMRzECs0BiTyYAGrQTCbuq1OKQGkOEUiKSHrEyUsHYRdNWQuGJycVZIvEQU7LFn1NO MjMXYnMJ1YHgEcOQOhUBh5UXLbJQYkEWZtnc7BOPJb UAMwZSr9BzSyFRLiEQOhRFusEIHmDGYyDWZ9KOItNELnOO8SBnThKHPeZyDlIqyvOAIkWCUugb6ZIDFr GDDeVDVyIhRxJDMdJFZcAPwaPARfRWYrPed4GVUgHDEsJX4SXsHmCSSkIbA1RiIfPPGcTVAaml8ZDNFw DKUhGxG4HfQpGCWtNIStVPemPYWvFDE0QXXaVTDaRJ EiPR3HCnQoHFZvNrCaYHkfNQWeWYQehh2NNOUrJBQsPNX1OFCqQOKsVBBmICueVXRuTBU0RJE1YXUvPK AfXQ4UYfXfJDJnKdQ0RBAvAIKeKXKdih0HIVClAYAzSEd9UtRbZWDpGMUtEWdrPAKrNCT1UYq5WDAwWM CkNT8HEyTlUFOlAhXjVoQhPQKbGNRtyr7POCDtXOTu YiE0IgQlSWUgUYZhXAhrHCOaESB3XMz3FTWaUJGuYT3LFqDsMABsGwbbKNWaMWItJGFsmk3BHYTdWKEc SNDiPuCnJVMtTQTuFJitVPSoURM8VFw5BSMsEJFkNI5JGwPyFZJdVlk5MRFoVADkXJGcqb0XJNMwIWAi WIk7TsVfESPfWEPaLQgwUBWeTOT8XHSiUPZmCITqFO 9DZhVaUGRdScdbBNefCCHvYRKqra8NxCKazHkprv4CAFiRZo0RqNxkPMT8XYegEe5gxTT5SZKmAXMFLh 0YogSlLBYoVMPRLKifOTAfYHRyWGOuYSTwK6W9BjW8UGv9Erk8PbJkPBBuFRe0ERM0DmV1CHIbDgP7MK Y8ToD8AFnxNPjoDiwwHHVgTcPnBpIuVPT+IF0gDQ o+Sv5Pb1OynfE8ayNzXQtxCQN2YZ6EFPSLI5QLVq== ID Date Data Source [id number] 12/22/2020 09:31:30 AM EDT [facility] Name Value Range Interpretation Code Description Data Alisson rce(s) Supporting Document(s) Troponin I.cardiac [Mass/volume] in Blood 0.01 ng/mL 0.00-0.08 [facility] ID Date Data Source [id number] 12/22/2020 08:03:20 AM EDT [facility] Name Value Range Interpretation Code Description Data Alisson rce(s) Supporting Document(s) Consultation [facility] XRBXYm5lPeIATfYl60/IABfbDYHba3SfOGmhSUs5LUorIGRgE3UrDPK2lV9fHQO9FBaBYxRhOnQlDmBd lbm [file] ICAgICAgICAgICAgICAgICAgICAgICAgICAgICAgICAgICAgICAgICAgICAgICAgICAgICAgICAgICAg ICAgICAgICAgICAgICAgICAgICAgICAgICAgICAgIC AgICANCiAgICAgICAgICAgICAgICAgICAgICAgICAgICAgICAgICAgICAgICAgICAgICAgICAgICAgIC AgICAgICAgICAgICAgICAgICAgICAgICAgICAgICAgICAgICAgICAgICAgICANCiAgICAgICAgICAgIC AgICAgICAgICAgICAgICAgICAgICAgICAgICAgICAg ICAgICAgICAgICAgICAgICAgICAgICAgICAgICAgICAgICAgICAgICAgICAgICAgICAgICAgICANCiAg ICAgICAgICAgICAgICAgICAgICAgICAgICAgICAgICAgICAgICAgICAgICAgICAgICAgICAgICAgICAg ICAgICAgICAgICAgICAgICAgICAgICAgICAgICAgIC AgICAgICANCiAgICAgICAgICAgICAgICAgICAgICAgICAgICAgICAgICAgICAgICAgICAgICAgICAgIC AgICAgICAgICAgICAgICAgICAgICAgICAgICAgICAgICAgICAgICAgICAgICAgICANCiAgICAgICAgIC AgICAgICAgICAgICAgICAgICAgICAgICAgICAgICAg ICAgICAgICAgICAgICAgICAgICAgICAgICAgICAgICAgICAgICAgICAgICAgICAgICAgICAgICAgICAN CiAgICAgICAgICAgICAgICAgICAgICAgICAgICAgICAgICAgICAgICAgICAgICAgICAgICAgICAgICAg ICAgICAgICAgICAgICAgICAgICAgICAgICAgICAgIC AgICAgICAgICANCiAgICAgICAgICAgICAgICAgICAgICAgICAgICAgICAgICAgICAgICAgICAgICAgIC AgICAgICAgICAgICAgICAgICAgICAgICAgICAgICAgICAgICAgICAgICAgICAgICAgICANCiAgICAgIC AgICAgICAgICAgICAgICAgICAgICAgICAgICAgICAg ICAgICAgICAgICAgICAgICAgICAgICAgICAgICAgICAgICAgICAgICAgICAgICAgICAgICAgICAgICAg ICANCiAgICAgICAgICAgICAgICAgICAgICAgICAgICAgICAgICAgICAgICAgICAgICAgICAgICAgICAg ICAgICAgICAgICAgICAgICAgICAgICAgICAgICAgIC AgICAgICAgICAgICANCjw/kUXjB0qwoTPkicE5I8zbZn6XLb4HCV2eb1JiMHTvRRbuapNkRfnURuZdYD MeIhcGArq7XJmrIE9PlJNcT7TmP3LmUGwgKJ3EVOKbHDCraTAnFMNtCXVlRdJ2IGUkJVwxLZ1KdJOnOU sgNSAwIFIgNyAwIFIgOSAwIFIgMTEgMCBSIDEzIDAg NhRxMSCyJKVoDFibHZSOTIF8SZFzLrYhJSmtZR5Pu5MpcCA1CYf+Ky9CWJ1dk7KoPXbpOJFxBB5rvi3V QEdYOgTfR6PhchV4RSEnOUNcYo1LWAGkWZPfsEB0WIPuLDQTUnWgL2ToqI50VLSHBh1+DQplbmRvYmoN TbCaFKYls0UkFFi6NS8VKAAfYOr0oIRpT48yu7EuqD UiCspsJ1Qmp5txzlOeK0JxpLttFN8zCHBfebatOCZzRBQdGu5vMZ5tAJXsKCCuDxMpVRVYBY4DFHIbHM EliAHpXFYsATKKAH9FCDspZQU6EJNajnMfgBGeKSmjPT8WYVSlhnTfVuptNJGSXSn+Ap2AXZ0rv9FaXZ f6CWWdBC9mly9GYMgGSaMgT3Z3tHLsH8S2NKxuKt7O TNCjUSXpZpksLTGUKRaaIK2LQO0jluL9UJ4GxOXrKKRuFLYunBVbOJp8X92uiHEbVPglQY7JBJV+Patricia+ Hf2JRWIeLKAdZCQsSeTrEVDAXhWpC1YmS8HCv2EzB2CeTP82hPsymhKgBGhqSW1SSO2eXNDkNANFJJ7L uXMclK3joyXjROScFJFIEaCnB34qzHQvQFAuKEK8VD SwGu0BKVMsF2TliyZqtKsnlfAiHTIdLCXISY9WFEhmbbRklPLesWhkSN01nBxbWZ5IFu6YNfCzAX0dzu 2BkTObQc8OIBN8Dq4ZJMZiCRPxHEUmWSD4YLHcCkHnANfaRHUmBMFaAOB3EKVlOMSwDV1YGwYaRUQhMH C5LVzoBLSgXMApmj8GMJUpWXI0JBo5VMGpAOJzPLYg IUdyOEGhYIJfBBL0EZQrQOCuPL1TZkDaULAhGKZcRgZgSLSzCSDmor7JGMPzOFJaPRPuEXBxESXqRARj EGuaSATmIJR2PWErUESeEEFiTC0YWcBnKFQbAJhkRQAfSZRyJITmos8OAVJnNYLaHOX7GSOmCOThBICe HAfdDCHsVPM6QTI7ARFzBDHgSF7WOfPlAABlBUS3PK GwMLMxBSOnlh1VKHStYQSdOwQ9VXYrCMMtGBHeOTkzBLVoGKW1ExqnGRZwSHGaNE7PGiHsFPNbAQP5YN omRZMsAFHzmy8FVDIwLNOoITU3ZPFtRHTuFRVcZVldAFInJRCjJry5AJQlHNAeLV9JOgHuCSGvBwL9En GaNSWyMSJmtq5SUJVzBPSsEiJ9QRMfNCUcOOOwGEly WHAjLWN0HSZ4VQFaFULuDZ4NRlGbOPZaXtOkWOXuORXfHOHrsc8RHGItOUQdUkOjZWViIVCeKWJxZIkv NYNhCVS0UZr1WBHiPCRiQE6WWxEuBDFqOsU8EDNcYKGdDFPiso4UDEGhNBUnOfTdMSBbDQYxKLLkLJnd WTQuRFD5VBLcVAEwWZJjDB3YNeYaFCGnQdjsMudyKF TzLRUkbl9VUPQpGHIwCKf0AKDjAUMxNBVzKTpsPLXsFVK7XIo5IUYgZDUvZK7CRnMqHQHuRxrtGpcuLN WsDUPmzy9CJXHxJKK9BVm0XUFvEZWhUSRuKHgvZQMjOZTxBMqkZKJuNRVgOJ9YHiOnVZUbLAWuUNChUQ VrFCSvcn4MCIPtUNN0UHWtIECcMWWoXBElWChmVAUe FBKsZtN5ELRbNHQcGC1ZDcOqRWUmRIK0ZSKfYRCsLLCevo9SPUTpWHB1Pcx1QNLfNQQqPPMzAPdkWEFw VPQbABn7PTCuDNElHO8GAiZvJDYvRFA0PNliIBTtLYRxbt0WQSCrRPT4XCz7IJUoNWCuYRMrIPghRNMo ICQ2MJD8NHQbHWAqJH0RIaOpQHDvIRKdMCQdXWMhGH Btzh9CkJYqsChwzj6NSNkNPp0CrAhkSGRrINgbTs3biXH1WODsWGBFGi3XkbHfNCQtUGSVYUccPZGhHL prQCldHxUqPnj3OibtYmW7AbZ1ZLWvVCUaQNJ9PnCfOlM9WST1DZEeGhD7NUn5NIDnOMM5Ygc6PiE6Cs K6LVTyACT+BR4jEAx+Zc6Tl8EdmzN8hrAgZPe2KPK5LH7QHKJCD1IKMe== ID Date Data Source [id number] 12/22/2020 08:01:23 AM T [facility] Name Value Range Interpretation Code Description Data Alisson rce(s) Supporting Document(s) [facility] EXTMKf5iPcCVBgRcn2WcWqQbMEDsKI8pctu9A6B9xKXiK1HnpNMiz9qbR8IuL4NuMAWpYLOZPY6AwKRk jb2 [file] 3sN0bs+eZJVRApYi4UL4+Walter/kkQ9arBFXklyhXJUpwvpnT2n6VdUzknzLNnhZyCMkq6s8Xlhc7XvZDc a9muU1yV+sH/Donovan+oFv+M6+hSPZZ0agogUJaUXG4kwms2ReqaBSnVKko+7fAzhA8ekv29hByFgpOZLvha vGzMWQ7xbpweZXfv7E6oELBgHyDdT4KfaYTfPwzAjn lcPMY2de4qPomIHLD95tDjsplsHRWQPQYNxwECZ33Z8qDFWbSSK3X5SfASO+crQ417J048B921C806E7 9iMgCrphv4DfziKPOhfnT232IHV04njO9ZRD+Z4qRLB+MO++cwiYE+fliSEMIrl+SDX9mflkI0N4Zaph vNj3/RmKJ/T9J/j1m56yD/P4RL8kbm/v+aV/+oHHFS 5l1W78LLaRcNkTx2w+6RFI3j/lU6Z4O45P+yxvX9it2+f/vholX1Jdq/SI1/z89H/KLy368W/0ifYvpC +6s1AXzo6R0QuAR3NmAs/P733L//ibm62Tf/98jJa1e63PHq2y06upfb5V/A89bCtVW/gld2e7opOmM+ lHX+/x/En3SD+/ylS43dm9OgA45uq0iUpt5b2kYR3L fvSNkNKuSD/67kg/+u5IP/nuV2Dg8v5xkiDx2L/UO9H+rOHXknvA8c23wHlOsT+cIc8+I08uugI350B1 99HvfP0DVdPiNNpiJ6Uj5JQd1AxD4wxek+69EeK5T7yM6Ik2OBe1Npej4Xyam5PtCkpqoVnQhcR5+nOP 50/6qWXmp7Pt98o75acQW17wFUi//u+t4fnV6/La7+ sMxs9XZL6A14kru0/2DTt3moE9oP510e47uq90/+EXkg1Di9jW/+z0m5jhDb9w4I/53cIR5f0xF8xo3O zTD9L6XS7/I/r8MKF/I/i8zgNz0BwF/Ruh59/bg054ix14KOHFd/0TjOU6pNsC8W2094Dj/NB2k87tn2 3X9a1lRE6t+eir+fzsMDF+K0pYs0anuNvcxpyX8ye2 b88dWp1/z/r6yTq/ps01693SC/kSKqc44SPdeJ4hhSHGdho9+Zvn1/w02mcdtr1zd0+dDyd/z/be2Xh/ o6W17Ofg+fVtX48tGxvmd4+WnJE2U9x/8thk0irL7rz+ooylz1hp86/4al1VF8/usG7Xj7te8wl6os/e z257f/A0DtSxMbuEhNF5sctXAU2J348f5zu7VH/n9/ cJzb8knFfvA7Njyk4QPs3/+4ka/7Wdaj2cwa/c95lPKthpYg/3D7/T4nUnAYm7CGo/7a/Rr428gASJ/7 z4iMb+6OuaUeN/6Rkld/jVjU3/9PeX1JdIr7W8/6NvX/kn0T/s1A2ZymUBgzlN8M/R4p/93GhXO68oRB rgsycrF68vh4EmQ1+c19imIou+M+rvw6/+1iXXOw7S j8d7HZh/jflT/piigP6z/Ok70/4ffvXN+8uq3ahV591FeIoG/6K6wuMYyLw/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/fCAj/8zXi/b+m/Hk+ Ua9/5lWP9+cnPex5+FXMpScW/Oob/Crb/MrPYd68CSvSS2Hyec/F8YROxcHLdy/5Jdhkytb7Jr5L1ZiL z4NfxW/X3/g94d+33wa/ynTD+45y0J+SE7V2HE9c1R nvb6S/+JpTX9X5kj/jQF45fu/lsyJdkd6/8+GC4s0w8gUm7/Sri8qerxq/tzzi98z+cmfwzb0XAis/oT 4i7oqhAgyIqY2haog0XgxR9j7oKpe+vQzzlWG+MedVuivTZWeKbTq9pE+nz1vMz/g75nIMv4UuLrKc10 gRj8Tf4Uw+ma5Sa9mUb4Msl/kqnvWVc/aYoe9qMu2S PvD+eO1xw/vQ158/eMK37+/o7/t7gre/zwvp6M++L80fn03Gdke36+FX+m54615Yz18N4vCIJi0Nr6v8 CJAiSg9l5d/6b1NLfPD8XodaZ95u1dl8+PxcYLh4hPRW+Sr41X1+76/bD9ksr7n+/HcZA5G9Mm70Udh2 Ktoc/Hdf8qNUIPxMl6pgNHLVhrH9l24zoy0phVHyL2 UkxR5N6/MXdD//YLwaGeN2Iixz/JspL7Kui5/tv5mUpseR+mtkcW4ud7C+8/fQKPto6cAQ/Z6Rvl6/Cn 6VeaHvft+lDbsiNeHzzA5PG9Nzy/gXcn5f5v2X+is601Jqn4fF3yps7t9W+xPpC+QjsCZ6500m/9uDX2 Xwcfv+XifK+pt+9N2Rrl+/95ZLv084Csf/73S8f/yj Fu8Pe8/EV0iaoTGuwfYNKJ5D/HUPDq88Z/giy3klZ89FJFcMgpVO/CuFA1e0+46592vphWp1mki/yrxn /eq+I3j/+CDPB25i7dPCDoD1r19lWLsVoksFk5ufs/vQ7s8bZzhl53+4yjGziI1BqA4RW/0qfuvgV/m8 v/28B7/KEOPgV/n85VE9+QBlF8Gmd+r9+Ucd/KoHvz pzfk9+VluN3bR0407clxt8rmXQ7Yu26y69c504vO4/WaU4xhKAwKN5Wo200fUY75iiCYy/E7Gr4gSxVv me4EUbQ+i39TcvEPhh4ynU7em1sEeqn6c3vgjUcegrJ/oa9AW/8yHET6FEA1b+MDsLH9vud3ebRY9Lf4 72+NJW9fu7fVkj0hM97yM21tXJ9CgL7100jYBCJ5Mf 1rRODYf1+URTvSW82SKVDZ8y16L1O19WM2rnruDJb2xYvr49qLX3/JbjCme3y45eUTX8jhaC1ydvc+Ke 0z86Yc/eb68e884/dOudH/7yut4QD21s4p6QY5nt2gSeSrxAG+E5j5Rdyu895QraTl+689Vxt7hxsNLb 0R9/iFe7B221XIU/8KsZu+[id number] [file] publication specialist/sSDdPo0byHL6v9/nomIwvsn/5kF8xOqX+yHm1I/w8e7g7LuW+oBybTbMMLqTPbJe0Hs76wuhCm2jm [file] FIM9siKt9vFqJhWHNPF9Xmn3ZlSXOtYSBNAp7+ZgM1TCK9hJJmOqk8CVNuWIjeMLDEYd== ID Date Data Source [id number] 12/21/2020 06:56:30 PM EDT [facility] CT HEAD WITHOUT CONTRAST [id number] RESU LTInterpreted by:Kristy Marshall MDINDICATION: 6 hour repeat for re-eval. Original at 12:00 pm. Please repeat at 6 pm.TECHNIQUE: Noncontrast CT of the head using axial technique was performed. Automated dose lowering techniques and/or adjustment according to patient size were utilized for this exam.COMPARISON: CT head from an outside hospital dated the same at 11:[address] head 10/27/2020.FINDINGS: Redemonstration of a right frontal approach 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 shunt catheter, the tip terminates within the anterior aspect of the third ventricle near the foramen of [place] the location is unchanged as compared to prior examination. There is a mixed density left-sided subdural hematoma, consistent with chronic and subacute hemorrhage. There is an area of hyperattenuation in the dependent portion of the left subdural hematoma as well as within the left tentorium cerebelli, which can represent a component of acute hemorrhage. These findings are stable as com pared to prior examination. Smaller ventricles in comparison to previous CT study. Some effacement of left lateral ventricle with 3 mm right midline shiftNo significant change in the right cranioplasty with underlying thickened are. Encephalomalacia in the bilateral anterior inferior frontal lobes (right greater than left) and right temporal lobe are again noted. No significant change in the small subdural hygroma adjacent to the left cerebellar hemisphere. There is no evidence for an acute territorial infarction. Asymmetric lateral ventricles are unchanged as compared to prior examination. Paranasal sinuses are clear. Mastoid air cells are clear. IMPRESSION:1. Mixed density left-sided subdural hematoma is again seen, which is predominantly subacute to chronic hemorrhage. There is an area of hyperattenuation within the dependent portion of the left subdural hematoma which can represent a small component of acute hemorrhage. Hyperattenuation along the left tentorium cerebelli can also represent acute hemorrhage. These findings are unchanged as compared to prior examination.2. Smaller ventricles in comparison to previous CT study. Some effacement of left lateral ventricle with 3 mm right midline shift. 3. The Additional chronic findings as described above.Findings were discussed with Dr. Gutierrez by Dr. Mena via phone at 6:26 PM on 12/21/2020.This document has been electronically signed by MARILYN Marshall on 12/21/2020 6:54 PM Name Value Range Interpretation Code Description Data Alisson rce(s) Supporting Document(s) ID Date Data Source [id number] 12/25/2020 01:06:37 PM EDT [facility] Name Value Range Interpretation Code Description Data Alisson rce(s) Supporting Document(s) Oxcarbazepine [Mass/volume] in Serum or Plasma 14 ug/mL 10-35 [facility] (NOTE)This test was developed and its pe rformance characteristicsdetermined by [facility]. It has not been cleared or approvedby the Food and Drug Administration. Detection Limit = 1Performed At: [facility] [id number] Ibarra MD Ph:[phone] ID Date Data Source [id number] 12/21/2020 03:48:03 PM [facility] Name Value Range Interpretation Code Description Data Alisson rce(s) Supporting Document(s) Leukocytes [#/volume] in Blood by Automated count 10.3 10*3/uL 4-10 H [facility] Erythrocytes [#/volume] in Blood by Automated count 5.19 10*6/uL 4.6- 6.1 [facility] Hemoglobin [Mass/volume] in Blood 13.8 g/dL 13.5-18 [facility] Hematocrit [Volume Fraction] of Blood by Automated count 42.3 % 4 1-53 [facility] Erythrocyte mean corpuscular volume [Entitic volume] by Auto mated count 81.5 fL 80-96 [facility] Erythrocyte mean corpuscular hemoglobin [Entitic mass] by Automated count 26.7 pg 27-33 L [facility] Erythrocyte mean corpuscular hemoglobin concentration [Mass/volume] by Automated count 32.7 g/dL 32.0-36.0 [facility] width [Ratio] by Automated count 17.0 % 11.5-14.5 H [facility] Platelets [#/volume] in Blood by Automated count 199 10*3/uL 150-400 [facility] Differential cell count method - Blood [facility] Neutrophils/100 leukocytes in Blood by Automated count 73 % [facility] Lymphocytes/100 leukocytes in Blood by Automated count 16 % [facility] Monocytes/100 leukocytes in Blood by Automated count 10 % [facility] Eosinophils/100 leukocytes in Blood by Automated count 0 % [facility] Basophils/100 leukocytes in Blood by Automated count 1 % [facility] Neutrophils [#/volume] in Blood by Automated count 7.48 10*3/uL 1.8-7 .0 H [facility] Lymphocytes [#/volume] in Blood by Automated count 1.69 10*3/uL 1.2-4 .0 [facility] Monocytes [#/volume] in Blood by Automated count 1.04 10*3/uL 0-0.8 H [facility] Eosinophils [#/volume] in Blood by Automated count 0.03 10*3/uL 0-0.5 [facility] Basophils [#/volume] in Blood by Automated count 0.06 10*3/uL 0-0.2 [facility] Nucleated erythrocytes/100 leukocytes [Ratio] in Blood by Automated count 0 /100{WBCs} 0-0 [facility] ID Date Data Source [id number] 12/21/2020 04:01:00 PM [facility] Value Range Interpretation Code Description Data Alisson rce(s) Supporting Document(s) aPTT in Platelet poor plasma by Coagulation assay 22.7 s 24.0-33. 0 [facility] ID Date Data Source [id number] 12/21/2020 04:01:00 PM [facility] Value Range Interpretation Code Description Data Alisson rce(s) Supporting Document(s) Prothrombin time (PT) 13.0 s 12.5-14.9 [facility] INR in Platelet poor plasma by Coagulation assay 0.97 [facility] Routine intensity oral anticoagulation I NR is typically 2.0-3.0. Target INR must be clinically individualized. ID Date Data Source [id number] 12/21/2020 04:09:44 PM [facility] Value Range Interpretation Code Description Data Alisson rce(s) Supporting Document(s) Bicarbonate [Moles/volume] in Serum 26 mmol/L 22-29 [facility] Chloride [Moles/volume] in Serum or Plasma 103 mmol/L 98-107 [facility] Creatinine [Mass/volume] in Serum or Plasma 0.58 mg/dL 0.70-1.20 L [facility] Glucose [Mass/volume] in Serum or Plasma 86 mg/dL 70-140 [facility] Potassium [Moles/volume] in Serum or Plasma 4.0 mmol/L 3.4-5.1 [facility] Sodium [Moles/volume] in Serum or Plasma 141 mmol/L 136-145 [facility] Urea nitrogen [Mass/volume] in Serum or Plasma 7 mg/dL 6-20 [facility] Anion gap 3 in Serum or Plasma 11 mmol/L 8-15 [facility] Osmolality of Serum or Plasma by calculation 289 mosm/kg 275-300 [facility] Creatinine/Urea nitrogen [Mass Ratio] in Serum or Plasma 11 [facility] Calcium [Mass/volume] in Serum or Plasma 9.6 mg/dL 8.6-10.0 [facility] Glomerular filtration rate/1.73 sq M pre dicted among non-blacks [Volume Rate/Area] in Serum or Plasma by Creatinine-based formula (MDRD) >6 0 [facility] Glomerular filtration rate/1.73 sq M pre dicted among blacks [Volume Rate/Area] in Serum or Plasma by Creatinine-based formula (MDRD) >60 [facility] ID Date Data Source [id number] 12/21/2020 12:26:00 PM EDT [facility] Name Value Range Interpretation Code Description Data Alisson rce(s) Supporting Document(s) SARS coronavirus 2 RNA [Presence] in Res piratory specimen by ARNULFO with probe detection NEGATIVE [facility] This lab was ordered by [facility] a nd reported by [facility]. ID Date Data Source [id number] 11/19/2020 12:00:00 AM EST [facility] Name Value Range Interpretation Code Description Data Alisson rce(s) Supporting Document(s) SARS coronavirus 2 Ag Negative [facility] This lab was ordered by [facility] and reported by [facility]. ID Date Data Source [id number] 11/14/2020 02:36:43 PM EST [facility] Name Value Range Interpretation Code Description Data Alisson rce(s) Supporting Document(s) Progress Note [facility] IDUXOq3wFuQCWgPj59/MVUtcIPZnj1WxDLrkFOa1VWzlPVMhJ3NeFZC1zX9lZOJ6ZSvUMdCkRqQbEpOv [facility] PyStgSUbMnLXImRuoJDqHpZGwtImcziXCdAF4ZwGR6PJJoI20pBUGpVVOlE8QiFWY4CBK+Zv5WDHOyaA SwEC3PSemC1O6WqtcXVL1MtF/HBYTZQOdQCK1uHGGam11njWYmrmVjzvSryVsxkMvRdgKo9aXjcUdXv0 z9OwN15B8fB3r7ohjn5jfpdtz/v1zjJWUlH+X/735G iVbnQ/LnV0bYC9/swUv9MV8UT5yDqps3CrrtejgouU2Gv13gwJ4uNfnNu05XR9/dAI1rDifLLagm1+mo P+t2Mtgsk/2PpZbohIQxUIeGxOf16HGc0eqbUdWI+7LDDJk09Fl7r56zkvaR9pyybmk5e5DvWH9ivreV TgbwMYiGx6RLvtNc8wN1V2nPpXiI3cJE0W9JziWWPm bdOopx9bI66AeNFUTs3ndF6NbaghdeI6aVe5l+prZE8Oy8GJqf0uE2drE/q1nvzJ8lQULXKpr2z0SP8X 4gL3SgJ49CA7x5iPHeHWBMgbPX2l2I+anW29NHgj4Aw6k+shuvqtizQNpccELFVgTZI4dydEEw/vrc3l MgdffljQdP32cS7yJ6wVj+0QcEQtKLIbl2yGKqEexY pfUxveLDGUFbZqJb91pPpTmcNTHp08/lwzgpm/AxZZxfiLnzrt5HYqhVxE3S4B9ePzV6lbexRsuP40hb XdwGrtFTcSqPrpiZVaTug0tIbXj60WeQnTwRUx8gBz/A6hF9l+FEZpx0SQp5Ovu5gWjGivADX4gl+CQz Uks6/Rl4nrmMtwBX5B354HFgKDgBRS/z8j4Gl9tQJ7 4CMaJISjxRiAXVSB1gWmOo1KPohyUcc73QiB2BxzeNkqhFAzNAn4SPgnvzwmmdLoDhjHidKZZRk0AJhM Us6W7ovB+aEE5rK4wOKI2uK86yqc0WbNbIbPqoa1ttZjg+Up2+fd/F8/zYPQNLJ3dudOvzmw1tijYFHO bp8MKBN+[employer]/Nr3SknByJxZEBq1UyoXtSbjT32aB/Qh [file] DQo= ID Date Data Source [id number] 11/03/2020 11:18:00 AM EST [facility] Name Value Range Interpretation Code Description Data Alisson rce(s) Supporting Document(s) Calcium [Mass/volume] in Serum or Plasma 10.2 [facility] ([facility]) Sodium 136 [facility] Carbon dioxide, total [Moles/volume] in Serum or Plasma 28 [facility] ([facility]) Chloride [Moles/volume] in Serum or Plasma 99 [facility]) Glucose 107 83-110 [facility] Potassium [Moles/volume] in Serum or Plasma 3.5 [facility] ([facility]) Glomerular filtration rate/1.73 sq M.pre dicted [Volume Rate/Area] in Serum or Plasma by Creatinine-based formula (MDRD) Laboratory test result [facility] ([facility]) Blood Urea Nitrogen 7 7-18 [facility] ([facility]) Creatinine 0.59 0.6-1.0 [facility] ([facility]) ID Date Data Source [id number] 11/03/2020 11:18:00 AM EST [facility] ([facility]) Name Value Range Interpretation Code Description Data Alisson rce(s) Supporting Document(s) White Blood Count 7.2 5.0-10.0 [facility]) Red Blood Count 5.31 4.00-5.40 [facility] ([facility]) Platelets 227 172-450 [facility] ([facility]) Hemoglobin 13.1 [facility] ([facility]) Hematocrit 42.5 [facility] ([facility]) ID Date Data Source [id number] 10/29/2020 12:00:00 AM EST [facility] Name Value Range Interpretation Code Description Data Alisson rce(s) Supporting Document(s) SARS-CoV2 Rapid Antigen Negative [facility] This lab was ordered by [facility] and reported by [facility] Rehabilitation. ID Date Data Source [id number] 10/28/2020 11:28:21 AM EST [facility] Name Value Range Interpretation Code Description Data Alisson rce(s) Supporting Document(s) Discharge Summary [facility] CLLTBj0gMcNRHbGo07/GXBqaNDGof2GvVRgjGAr1UGhhGYBkY1MnUQL7xI0gXIJ8KWcQMdBsMbQrNRM2 lbm [file] AgICAgICAgICAgICAgICAgICAgICAgICAgICAgICAgICAgICAgICAgICAgICAgICAgICAgICAgICAgIC AgICAgICAgICAgICAgICAgICAgICAgICAgICAgICANCiAgICAgICAgICAgICAgICAgICAgICAgICAgIC AgICAgICAgICAgICAgICAgICAgICAgICAgICAgICAg ICAgICAgICAgICAgICAgICAgICAgICAgICAgICAgICAgICAgICAgICANCiAgICAgICAgICAgICAgICAg ICAgICAgICAgICAgICAgICAgICAgICAgICAgICAgICAgICAgICAgICAgICAgICAgICAgICAgICAgICAg ICAgICAgICAgICAgICAgICAgICAgICANCiAgICAgIC AgICAgICAgICAgICAgICAgICAgICAgICAgICAgICAgICAgICAgICAgICAgICAgICAgICAgICAgICAgIC AgICAgICAgICAgICAgICAgICAgICAgICAgICAgICAgICANCiAgICAgICAgICAgICAgICAgICAgICAgIC AgICAgICAgICAgICAgICAgICAgICAgICAgICAgICAg ICAgICAgICAgICAgICAgICAgICAgICAgICAgICAgICAgICAgICAgICAgICANCiAgICAgICAgICAgICAg ICAgICAgICAgICAgICAgICAgICAgICAgICAgICAgICAgICAgICAgICAgICAgICAgICAgICAgICAgICAg ICAgICAgICAgICAgICAgICAgICAgICAgICANCiAgIC AgICAgICAgICAgICAgICAgICAgICAgICAgICAgICAgICAgICAgICAgICAgICAgICAgICAgICAgICAgIC AgICAgICAgICAgICAgICAgICAgICAgICAgICAgICAgICAgICANCiAgICAgICAgICAgICAgICAgICAgIC AgICAgICAgICAgICAgICAgICAgICAgICAgICAgICAg ICAgICAgICAgICAgICAgICAgICAgICAgICAgICAgICAgICAgICAgICAgICAgICANCiAgICAgICAgICAg ICAgICAgICAgICAgICAgICAgICAgICAgICAgICAgICAgICAgICAgICAgICAgICAgICAgICAgICAgICAg ICAgICAgICAgICAgICAgICAgICAgICAgICAgICANCi AgICAgICAgICAgICAgICAgICAgICAgICAgICAgICAgICAgICAgICAgICAgICAgICAgICAgICAgICAgIC AgICAgICAgICAgICAgICAgICAgICAgICAgICAgICAgICAgICAgICANCjw/iHRzT8noeWHvrwB2Q2kaZk 2MJy7CLR1tx4CrUZPaUKeysdHdTaeJEeCiHZVzRckK Bdx9UJnzDC9JgHLwO3YgK8AyVZkuJT7DIJNeNUKcrYKyQQZnVIWyGqA9UDPtKBugQP7HqUYpDXgiIMIb NVOpVvVpKCXfWYGfQNJbJFLpORARJCRuWXUiHdRuTTNcVEWxUEzuZOQTMYQ1WYJlZpReZLElZAFcEpYr SYPLPQW8MKUwLvIcFQgpDH4Lv8ShpTXmHI8WTr9NVm IqNJ3sgc7IPDKzTMKrSdjTHjc4IVvyOT9WfMNpvDL6RuOhPZTKGtLeB5yua5YeISBnKLZNOJgaAZ2Se9 VudCAxDQo+Gc4MYM0dv0BnRIf3AaPtSY7hkz2RTFhXCrMzR2UvmJcbRFHxo8OtTJTeDCUBhZ7iKCT0EL N9RYXnln0du8FlTQMEvWUncNwqWcNlQQEzAJ1rCO3j QXMiYACcLrO0WDWLOJ7WSBZxOIIggXVrTZXhCEZBQW1ZMRsiKYG6SZKpebJfuRZyIUdvPE6RULNczmTv NDUgMCBSDQo+Xl8PGX9mt0LgPPi9QvSkKD6trk3OQMyFJdCsL6S6tFMyF0P9THcnWi9AHIZhAGTcXEOm FXWUXHpyQA7YJS4jwbZ3MS5JfJShPONpNMKzzZDtVX e1V71wzPIxCWblJE7GVHU+Patricia+Rc0XHRFcUATgRZVoMdWmGOSBCkUvC2TvG1JNe2BfS7VgEP31fYzdfc WgPYkxUT6QZF1kNXWjVXVCOP9DyFZywP5yjzH7CQNrGDFZOvYfM24eaETkPSGfQSZ0TNJrAi2ZKFNdD5 KrueTvgHgbhhHqPTRdOKBKPZ4RFPimmxWwmJTpjUsc YS17tYgkBQ8BFf9UOtFoHM5dky8UhFAxYa4CMUU5GW0WNDPaCXJvGEWbZDR6HQPvCpHsQYpcWPXlWFJc PIM6SIPgBNFkGY9KCpWpXHTnLDZsDJylGDJkLLKkfg9LKJGhGTI9YBLnULQgMGDrPSVzEQtvHVPcAKPq PXS6EPOlLNQfYP6YMbWgOLCuXRV4QZlvLSCvLUPmok 0XPMKpIVPgTornUmWhMDUpGGJaTEkzYDRlHRS0BbT0XVLkCBTjBI4TYmAwKMVaEEA3GGJtYRPvSQKoll 3GLFZyHRNyMSO1HPUmRQAbEDBtSXysUNOkMSGdLGddELTfTXWgWQ4XStRgUAYxKMZhLBMyHCFnOBBgix 8YCFWhFOMuYsB7JJFnZMXnRLTbJUyfKADbKEG7NVne RHJmQMWoUU0IDtYiJFDpVTpkIEbgYFDmGVYqdc7ZRJAnMPEpOOr5CVJtZDFjTDElMMmnFSSsFPXpCGjt CCCyFYQfXH4YUsXdEZAoNtX1FwTqGCDpNQJrem4YMEEaDVAbZst1PIJdTZLbTRDjWYjjXZIrYEC8HFg8 YJOqZVXlAC7UVfUhTIYcRqH3BEXwEKSiVLWetb7JCO RvWSLrYGNiXbRrGKRfTYDtXIcqZPOmQMIkPyS7ZIIpCFXcJZ4JRyEnJGToSqK4UgStLBJhBOKxok7RQH MxMEWqMZg2VoBpFWOdCCDsSSbcOZRiNGE8KWQfDLKgGABoTP2ACpJaAXXaXpA7QxisJRSuPAPfcr1QYA GiHRXdDcK3XBFnOMJhSTKfJZokMGWvZAM3EZa7LAJf JJGvYE8NJmYpRJEvZxscKfcxMIPiMOKfns4GTBDdCIClZNRzXXPuYTMxCLVnZLwsWWBjQPV8BsDsZXZk GCTaIQ5JGyOsIQTrCok3KMbkSQZtIZCecw1YIDQvZSDlNNI6LNXjJDYhDAWrLWpuYRFpIOA1WQu0YDVe JVTjBE7EDjGhVFGiSwy6XNvmJTXrNRRwak7RBFAlLY F9WZL1XjDuBYPhWTGyDZvsKNWwJRDaPFCkXPXeAAGqGW4JTpHkJDHiMVW0SrDbBDVlTCNypw2AHGTqKD E5ETkdLJCiCJTvZDJvSXchBGCnHHMjSDG0ONWaZYHrIA9TDkJuGWRhIXT9JIqlGPDeVZDycb8UEUHeNM O2ZxL0KrLrOYRmTNDiCRitPQTwUQEkWwY0JIGvXDUi YL0MGeOoTWJxDZL2IEzvMWZbDDQhtg2NDWPjLQJ5DTGhRMReINSeFWLrYRrtFGGeLDI0Xwm4NTYpSPNx JG4ULxXxYLYuJNC0RchmNCExSESlkn1DnNIonLrqbn7DGIbUDq4RqVlgXJT3WMaxJb9oaZC7KrRrUDES Rp8MikZlFKRkTNUVQXliBDUzSSGsRkNfDWerUJAoTQ JoUIN4ZMDoZMIgUpKkFMlqZEF5UyP7ABUeZZKlYWCpJ9E8RKY9Etl9IfJ3YmUoCjQwU1K4YyQ+IF0gDQ o+Bo4Od5UhosW0xtWtEVv4TCr3Wz3WBEEIY2ALFp== ID Date Data Source [id number] 10/28/2020 06:36:21 AM [facility] Name Value Range Interpretation Code Description Data Alisson rce(s) Supporting Document(s) Leukocytes [#/volume] in Blood by Automated count 8.1 10*3/uL 4-10 [facility] Erythrocytes [#/volume] in Blood by Automated count 5.25 10*6/uL 4.6- 6.1 [facility] Hemoglobin [Mass/volume] in Blood 13.6 g/dL 13.5-18 [facility] Hematocrit [Volume Fraction] of Blood by Automated count 40.8 % 4 1-53 L [facility] Erythrocyte mean corpuscular volume [Entitic volume] by Auto mated count 77.7 fL 80-96 L [facility] Erythrocyte mean corpuscular hemoglobin [Entitic mass] by Automated count 25.8 pg 27-33 L [facility] Erythrocyte mean corpuscular hemoglobin concentration [Mass/volume] by Automated count 33.2 g/dL 32.0-36.0 [facility] width [Ratio] by Automated count 15.5 % 11.5-14.5 H [facility] Platelets [#/volume] in Blood by Automated count 150-400 [facility] ID Date Data Source [id number] 10/27/2020 12:30:28 PM [facility] XR SKULL LIMITED [id number] RESULTInterp reted by:Joseph Hickey MDEXAMINATION: XR SKULL LIMITED [id number] INDICATION: Verify shunt valve setting.TECHNIQUE: A lateral image of the skull were submitted for interpretation. COMPARISON:Limited skull series dated 10/23/2020.FINDINGS/IMPRESSION: A ventriculoperitoneal shunt catheter attached to a [employer] CERTAS programmable valve is present. The pressure setting for the valve is 1. There is no kinking or discontinuity present in imaged portions of the catheter.This document has been electronically signed by Nir Lopes MD on 10/27/2020 12:28 PM Name Value Range Interpretation Code Description Data Alisson rce(s) Supporting Document(s) ID Date Data Source [id number] 10/27/2020 11:05:03 AM [facility] CT HEAD WITHOUT CONTRAST [id number] RESU LTInterpreted by:Benjamin Bruce MDINDICATION: shunt change TECHNIQUE: Contiguous axial CT images of the head from the base of the skull to the vertex without IV contrast. Automated dose lowering techniques and/or adjustment according to patient size were utilized for this exam.COMPARISON: CT head from 10/25/2020.FINDINGS: Unchanged left frontal approach 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 shunt with tip terminating in the frontal horn of left lateral ventricle. The ventricles are prominent and grossly unchanged from prior study. The basal cisterns are patent. There is no midline shift. Stable extra- axial isodense fluid collection along the left convexity. Unchanged right cranioplasty with underlying thickened dura. Stable encephalomalacia in bilateral anterior inferior frontal lobes and right temporal lobe. 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 There is no acute intracranial hemorrhage or evidence of acute territorial infarction. The visualized paranasal sinuses are clear. The mastoid air cells are clear. IMPRESSION: The ventricles are unchanged in size and configuration as compared to prior study.Additional chronic findings as above.This document has been electronically signed by Rebecca Cho MD on 10/27/2020 11:02 AM Name Value Range Interpretation Code Description Data Alisson rce(s) Supporting Document(s) ID Date Data Source [id number] 10/27/2020 08:51:44 AM [facility] Name Value Range Interpretation Code Description Data Alisson rce(s) Supporting Document(s) Leukocytes [#/volume] in Blood by Automated count 6.4 10*3/uL 4-10 [facility] Erythrocytes [#/volume] in Blood by Automated count 5.46 10*6/uL 4.6- 6.1 [facility] Hemoglobin [Mass/volume] in Blood 13.8 g/dL 13.5-18 [facility] Hematocrit [Volume Fraction] of Blood by Automated count 42.7 % 4 1-53 [facility] Erythrocyte mean corpuscular volume [Entitic volume] by Auto mated count 78.3 fL 80-96 L [facility] Erythrocyte mean corpuscular hemoglobin [Entitic mass] by Automated count 25.3 pg 27-33 L [facility] Erythrocyte mean corpuscular hemoglobin concentration [Mass/volume] by Automated count 32.3 g/dL 32.0-36.0 [facility] distribution width [Ratio] by Automated count 15.3 % 11.5-14.5 H [facility] Platelets [#/volume] in Blood by Automated count 166 10*3/uL 150-400 [facility] Confirmed ID Date Data Source [id number] 10/26/2020 12:31:00 PM EST [facility] Name Value Range Interpretation Code Description Data Alisson rce(s) Supporting Document(s) SARS-CoV-2 RNA 2019 nCoV Real-Time RT-PCR: NOT DETECTED [facility] This lab was ordered by [facility] and reported by [facility] Clinical Pathology Laborator. ID Date Data Source [id number] 10/26/2020 01:04:54 PM [facility] Name Value Range Interpretation Code Description Data Alisson rce(s) Supporting Document(s) Bicarbonate [Moles/volume] in Serum 29 mmol/L 22-29 [facility] Chloride [Moles/volume] in Serum or Plasma 97 mmol/L 98-107 L [facility] Creatinine [Mass/volume] in Serum or Plasma 0.65 mg/dL 0.70-1.20 L [facility] Glucose [Mass/volume] in Serum or Plasma 129 mg/dL 70-140 [facility] Potassium [Moles/volume] in Serum or Plasma 3.6 mmol/L 3.4-5.1 [facility] Sodium [Moles/volume] in Serum or Plasma 135 mmol/L 136-145 L [facility] Urea nitrogen [Mass/volume] in Serum or Plasma 13 mg/dL 6-20 [facility] Anion gap 3 in Serum or Plasma 9 mmol/L 8-15 [facility] Osmolality of Serum or Plasma by calculation 282 mosm/kg 275-300 [facility] Creatinine/Urea nitrogen [Mass Ratio] in Serum or Plasma 20 [facility] Calcium [Mass/volume] in Serum or Plasma 10.1 mg/dL 8.6-10.0 H [facility] Glomerular filtration rate/1.73 sq M pre dicted among non-blacks [Volume Rate/Area] in Serum or Plasma by Creatinine-based formula (MDRD) >6 0 [facility] Glomerular filtration rate/1.73 sq M pre dicted among blacks [Volume Rate/Area] in Serum or Plasma by Creatinine-based formula (MDRD) >60 [facility] ID Date Data Source [id number] 10/27/2020 10:23:10 AM [facility] Name Value Range Interpretation Code Description Data Alisson rce(s) Supporting Document(s) Specimen source [Identifier] of Unspecified specimen [facility] SARS-CoV-2 RNA 2019 nCoV Real-Time RT-PCR: NOT DETECTED [facility] Assay Performed [facility] Patients first test for 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 Patient resides in a congregate care setting [facility] status [facility] ID Date Data Source [id number] 10/26/2020 04:02:00 AM EST [facility] Name Value Range Interpretation Code Description Data Alisson rce(s) Supporting Document(s) SARS-CoV-2 RNA ELIUD GALLARDO RN ON 9G AT 1300 [place] [id number] BY [facility] This lab was ordered by [facility] and reported by [facility] Clinical Pathology Laborator. ID Date Data Source [id number] 10/26/2020 01:02:03 PM EST [facility] Name Value Range Interpretation Code Description Data Alisson rce(s) Supporting Document(s) Specimen source [Identifier] of Unspecified specimen [facility] SARS-CoV-2 RNA 2019 nCoV Real-Time RT-PCR: NOT DETECTED A [facility] Called to and read back Cassandra Kern ON 9G AT 1300 [place] [id number] BY [facility] Assay Performed [facility] Patients first test for [facility] 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 [facility] Patient has symptoms related to condition [facility] When did you start to experience these symptoms [Date and time] [Phen X] [facility] Patient was hospitalized because of this condition [facility] patient was admitted to ICU for condition [facility] Patient resides in a congregate care setting [facility] status [facility] ID Date Data Source [id number] 10/26/2020 04:58:10 AM [facility] Name Value Range Interpretation Code Description Data Alisson rce(s) Supporting Document(s) Bicarbonate [Moles/volume] in Serum 26 mmol/L 22-29 [facility] Chloride [Moles/volume] in Serum or Plasma 97 mmol/L 98-107 L [facility] Creatinine [Mass/volume] in Serum or Plasma 0.55 mg/dL 0.70-1.20 L [facility] Glucose [Mass/volume] in Serum or Plasma 107 mg/dL 70-140 [facility] Potassium [Moles/volume] in Serum or Plasma 3.5 mmol/L 3.4-5.1 [facility] Sodium [Moles/volume] in Serum or Plasma 134 mmol/L 136-145 L [facility] Urea nitrogen [Mass/volume] in Serum or Plasma 14 mg/dL 6-20 [facility] Anion gap 3 in Serum or Plasma 11 mmol/L 8-15 [facility] Osmolality of Serum or Plasma by calculation 279 mosm/kg 275-300 [facility] Creatinine/Urea nitrogen [Mass Ratio] in Serum or Plasma 26 [facility] Calcium [Mass/volume] in Serum or Plasma 10.1 mg/dL 8.6-10.0 H [facility] Glomerular filtration rate/1.73 sq M pre dicted among non-blacks [Volume Rate/Area] in Serum or Plasma by Creatinine-based formula (MDRD) >6 0 [facility] Glomerular filtration rate/1.73 sq M pre dicted among blacks [Volume Rate/Area] in Serum or Plasma by Creatinine-based formula (MDRD) >60 [facility] ID Date Data Source [id number] 10/26/2020 04:58:10 AM [facility] Name Value Range Interpretation Code Description Data Alisson rce(s) Supporting Document(s) Phosphate [Mass/volume] in Serum or Plasma 3.6 mg/dL 2.5-4.5 [facility] ID Date Data Source [id number] 10/26/2020 04:58:10 AM [facility] Value Range Interpretation Code Description Data Alisson rce(s) Supporting Document(s) Magnesium [Mass/volume] in Serum or Plasma 1.9 mg/dL 1.6-2.6 [facility] ID Date Data Source [id number] 10/26/2020 05:15:28 AM [facility] Name Value Range Interpretation Code Description Data Alisson rce(s) Supporting Document(s) Leukocytes [#/volume] in Blood by Automated count 6.5 10*3/uL 4-10 [facility] Erythrocytes [#/volume] in Blood by Automated count 5.47 10*6/uL 4.6- 6.1 [facility] Hemoglobin [Mass/volume] in Blood 13.8 g/dL 13.5-18 [facility] Hematocrit [Volume Fraction] of Blood by Automated count 42.5 % 4 1-53 [facility] Erythrocyte mean corpuscular volume [Entitic volume] by Auto mated count 77.7 fL 80-96 L [facility] Erythrocyte mean corpuscular hemoglobin [Entitic mass] by Automated count 25.2 pg 27-33 L [facility] Erythrocyte mean corpuscular hemoglobin concentration [Mass/volume] by Automated count 32.4 g/dL 32.0-36.0 [facility] E[facility] distribution width [Ratio] by Automated count 15.3 % 11.5-14.5 H [facility] Platelets [#/volume] in Blood by Automated count 175 10*3/uL 150-400 [facility] Confirmed ID Date Data Source [id number] 10/25/2020 02:45:03 PM [facility] CT HEAD WITHOUT CONTRAST [id number] RESU LTInterpreted by:Joseph Teran MDINDICATION: Evaluation of ventricular size. TECHNIQUE:Axial, noncontrast CT images from the skull base to the vertex without intravenous contrast. Automated dose lowering techniques and/or adjustment according to patient size were utilized for this exam.COMPARISON:Noncontrast CT head, 10/24/2020.FINDINGS:No change in the position of the left frontal approach 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 shunt catheter tip in the left frontal horn. Redemonstration of dilation of the ventricles without significant interval change in the size.No change in the size of left cerebral convexity isodense collection. Unchanged multifocal encephalomalacia involving the right inferior frontal lobe, right anterior temporal lobe and right posterior temporal lobe. There is no midline shift. The basal cisterns are patent.There is stable appearance of the right sided craniectomy and cranioplasty changes.IMPRESSION:1. Stable position of the 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 shunt catheter tip in the left frontal horn.2. No significant interval change in the size of ventriculomegaly.3. Other findings as described above.This document has been electronically signed by Salvador Vyas MD on 10/25/2020 2:42 PM Name Value Range Interpretation Code Description Data Alisson rce(s) Supporting Document(s) ID Date Data Source [id number] 10/25/2020 05:37:16 AM [facility] Value Range Interpretation Code Description Data Alisson rce(s) Supporting Document(s) Bicarbonate [Moles/volume] in Serum 27 mmol/L 22-29 [facility] Chloride [Moles/volume] in Serum or Plasma 100 mmol/L 98-107 [facility] Creatinine [Mass/volume] in Serum or Plasma 0.57 mg/dL 0.70-1.20 L [facility] Glucose [Mass/volume] in Serum or Plasma 86 mg/dL 70-140 [facility] Potassium [Moles/volume] in Serum or Plasma 3.7 mmol/L 3.4-5.1 [facility] Sodium [Moles/volume] in Serum or Plasma 139 mmol/L 136-145 [facility] Urea nitrogen [Mass/volume] in Serum or Plasma 14 mg/dL 6-20 [facility] Anion gap 3 in Serum or Plasma 12 mmol/L 8-15 [facility] Osmolality of Serum or Plasma by calculation 288 mosm/kg 275-300 [facility] Creatinine/Urea nitrogen [Mass Ratio] in Serum or Plasma 25 [facility] Calcium [Mass/volume] in Serum or Plasma 10.5 mg/dL 8.6-10.0 H [facility] Glomerular filtration rate/1.73 sq M pre dicted among non-blacks [Volume Rate/Area] in Serum or Plasma by Creatinine-based formula (MDRD) >6 0 [facility] Glomerular filtration rate/1.73 sq M pre dicted among blacks [Volume Rate/Area] in Serum or Plasma by Creatinine-based formula (MDRD) >60 [facility] ID Date Data Source [id number] 10/25/2020 05:37:16 AM [facility] Name Value Range Interpretation Code Description Data Alisson rce(s) Supporting Document(s) Phosphate [Mass/volume] in Serum or Plasma 3.8 mg/dL 2.5-4.5 [facility] ID Date Data Source [id number] 10/25/2020 05:37:16 AM [facility] Name Value Range Interpretation Code Description Data Alisson rce(s) Supporting Document(s) Magnesium [Mass/volume] in Serum or Plasma 2.0 mg/dL 1.6-2.6 [facility] ID Date Data Source [id number] 10/25/2020 08:56:47 AM [facility] Name Value Range Interpretation Code Description Data Alisson rce(s) Supporting Document(s) Leukocytes [#/volume] in Blood by Automated count 7.4 10*3/uL 4-10 [facility] Erythrocytes [#/volume] in Blood by Automated count 5.63 10*6/uL 4.6- 6.1 [facility] Hemoglobin [Mass/volume] in Blood 14.2 g/dL 13.5-18 [facility] Hematocrit [Volume Fraction] of Blood by Automated count 44.1 % 4 1-53 [facility] Erythrocyte mean corpuscular volume [Entitic volume] by Auto mated count 78.3 fL 80-96 [facility] Erythrocyte mean corpuscular hemoglobin [Entitic mass] by Automated count 25.1 pg 27-33 [facility] Erythrocyte mean corpuscular hemoglobin concentration [Mass/volume] by Automated count 32.1 g/dL 32.0-36.0 [facility] E[facility] distribution width [Ratio] by Automated count 14.9 % 11.5-14.5 H [facility] Platelets [#/volume] in Blood by Automated count 149 10*3/uL 150-400 [facility] Confirmed ID Date Data Source [id number] 10/24/2020 10:24:36 AM [facility] CT HEAD WITHOUT CONTRAST [id number] RESU LTInterpreted by:Benjamin Bruce MDINDICATION: Shunt change TECHNIQUE: Contiguous axial CT images of the head from the base of the skull to the vertex without IV contrast. Automated dose lowering techniques and/or adjustment according to patient size were utilized for this exam.COMPARISON: CT head from 10/23/2020.FINDINGS: Left frontal approach 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 shunt with tip terminating in the frontal horn of left lateral ventricle. The ventricles are grossly unchanged from prior study. There is no midline shift. Stable extra-axial fluid collection along the left convexity. Unchanged right cranioplasty with underlying thickened dura. Stable encephalomalacia in bilateral anterior inferior frontal lobes and right temporal lobe. 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 There is no acute intracranial hemorrhage or evidence of acute territorial infarction. The visualized paranasal sinuses are clear. The mastoid air cells are clear. IMPRESSION:Stable ventriculomegaly. Additional findings as above.This document has been electronically signed by Rebecca Cho MD on 10/24/2020 10:22 AM Name Value Range Interpretation Code Description Data [facility] rce(s) Supporting Document(s) ID Date Data Source [id number] 10/24/2020 04:54:03 AM [facility] Name Value Range Interpretation Code Description Data [facility] rce(s) Supporting Document(s) Bicarbonate [Moles/volume] in Serum 26 mmol/L 22-29 [facility] Chloride [Moles/volume] in Serum or Plasma 99 mmol/L 98-107 [facility] Creatinine [Mass/volume] in Serum or Plasma 0.54 mg/dL 0.70-1.20 L [facility] Glucose [Mass/volume] in Serum or Plasma 110 mg/dL 70-140 [facility] Potassium [Moles/volume] in Serum or Plasma 3.7 mmol/L 3.4-5.1 [facility] Sodium [Moles/volume] in Serum or Plasma 137 mmol/L 136-145 [facility] Urea nitrogen [Mass/volume] in Serum or Plasma 14 mg/dL 6-20 [facility] Anion gap 3 in Serum or Plasma 13 mmol/L 8-15 [facility] Osmolality of Serum or Plasma by calculation 286 mosm/kg 275-300 [facility] Creatinine/Urea nitrogen [Mass Ratio] in Serum or Plasma 26 [facility] Calcium [Mass/volume] in Serum or Plasma 9.9 mg/dL 8.6-10.0 [facility] Glomerular filtration rate/1.73 sq M pre dicted among non-blacks [Volume Rate/Area] in Serum or Plasma by Creatinine-based formula (MDRD) >6 0 [facility] Glomerular filtration rate/1.73 sq M pre dicted among blacks [Volume Rate/Area] in Serum or Plasma by Creatinine-based formula (MDRD) >60 [facility] ID Date Data Source [id number] 10/24/2020 04:54:03 AM [facility] Name Value Range Interpretation Code Description Data Alisson rce(s) Supporting Document(s) Phosphate [Mass/volume] in Serum or Plasma 3.1 mg/dL 2.5-4.5 [facility] ID Date Data Source [id number] 10/24/2020 04:54:03 AM [facility] Name Value Range Interpretation Code Description Data Alisson rce(s) Supporting Document(s) Magnesium [Mass/volume] in Serum or Plasma 2.0 mg/dL 1.6-2.6 [facility] ID Date Data Source [id number] 10/24/2020 05:46:57 AM [facility] Name Value Range Interpretation Code Description Data Alisson rce(s) Supporting Document(s) Leukocytes [#/volume] in Blood by Automated count 6.7 10*3/uL 4-10 [facility] Erythrocytes [#/volume] in Blood by Automated count 5.33 10*6/uL 4.6- 6.1 [facility] Hemoglobin [Mass/volume] in Blood 13.6 g/dL 13.5-18 [facility] Hematocrit [Volume Fraction] of Blood by Automated count 41.3 % 4 1-53 [facility] Erythrocyte mean corpuscular volume [Entitic volume] by Auto mated count 77.6 fL 80-96 L [facility] Erythrocyte mean corpuscular hemoglobin [Entitic mass] by Automated count 25.5 pg 27-33 L [facility] Erythrocyte mean corpuscular hemoglobin concentration [Mass/volume] by Automated count 32.9 g/dL 32.0-36.0 [facility] width [Ratio] by Automated count 15.3 % 11.5-14.5 H [facility] Platelets [#/volume] in Blood by Automated count 138 10*3/uL 150-400 [facility] Confirmed ID Date Data Source [id number] 10/23/2020 07:16:04 PM [facility] Name Value Range Interpretation Code Description Data Alisson rce(s) Supporting Document(s) ED Provider Note [facility] XVNYCz6mAyVQZfCf64/JWIpdOAAtq0GqWAweAKc1DTsiMJNgD8WpYJV0vS8cIPY0QTcCDsHhJoGfNJSc lbm JcZvqPBmBjHZLaFhrIXtRiMTaaZutmqWLcEV5ClOE8GWDaD23kGTUtLPXoD6AkCWO7IgV+Wn9UTRJjlX ExUA0MRbyK0Z7afhi2Qz2+wP0P/TnMsdmj5bcGS+Dc24fzYbzOHcXK8x+ecOw2dJOLanVkK878KqlG/b HmuoqnlpUwVPfJAVFiPN80ppp++VUNosBxHFX8++director of operations for therapy [file] GiZBl4X06tnQCjWGpmWG3PVDN+Patricia+Qw1JAMIoIJVtFMRiLeBaYHFJTlRpA2UgT3ZVp3IiL6UqGB92rC diupEjCTcaSC4MMQ0zSIJcSOUFNZ7RtIAbyA6tttUsXMHlUOFOYxFwG03jmUZpZBBjCAR4KKLaQj8WDO VjF7UxawWnyTyudgWlPVZiEDIAHW2CRMcgmwHivJXp zTcrQA51tGsnWP8MBw8ATrAkMA6hlg9YaHOlPx0WKBR5YO5PGILeKJKhYDKuHQX2GWCqVsSpOGgbTNRn LVFsXGL8WKJwISKbQF4NFwRxLTXgUCN1GejsQVNcBPZljd1LACGyWFA1ZvS1WXQzMGKlTXGjVUidARCr QWGuKEX7XJOqDFKwJF4EObUvZFZaTVCzTByjMCYlTN Frst0QVDJaLNDsKsPrBeNxVZAyZNZuLUgrJLWuSIB0XQV8SHRnKZPmLS2XUyVgFSMuWML7AmwzMTMuZQ Rnju9XBNNbGBBvUTP4KSAqNJKkHEHxBYbgMCLuCVE8LRH8FQYuOBEcRU1ZViKpBFIdHIC7VkFdORBfIE Axmc2RGFJqHRQeEsq3GJQzYEVoNBUrWAomXITxOAG2 LBY8JTIzECWzHU0DPwMtXAUcXTF6BzWuLNOuHBKhip8NLZVcEMCkClo7OGTgKSNdNNTdBZqoAEFbKAC5 ENYrDHJoSHMlXA8HPbUfBSFnTgPsSMlwSIRwVNTlmk7PYNYuXOHeIJA6IOEwUFTsSTAqNSolKHYfTUKw HVH5TXJpXIYxSW1IYaLmXRScUbGxCoVcLDKmKDRrdk 8JLFHeYWMyEOOtQAGgYAWnJKQbLOtjPIHmGFK6UwF8NSCzRYLzSM7CYjUwRJPzGzL0PCHcOTCwBVXkes 3LGUAwCMGzJwS0RNTnXIDfNHQsWDzgKKZiYYA2WqwyDYUpIGKjXU4FQkRyHGLoXxY1KMnmRAXkCQOqxh 1EHKLsEMUxAnfvUJXfMHFkFSGmMMfgKVPfRNW1LUJ6 TVEhNFGnZT8ASfDjXHEoArbiAZyfINCyRDJgxd1RTWBxGSBmXLS5NHWnDFKpSHZyBYbpLCSkOKW5JWXq MITjNHXqJP3EJkHyNHUlLVRcJFLfZTUhGUHxna1YRTJmEPF2WIA4YUUeRKIbVDQhAYsyUZOuCFCrEBh6 BLHxQXOkRG1THdLgVGDeFJH2KVPiTSYrERJmwc1RKS IpTDP1LFIkUXCnIQEtRRSnRDupNYSrTCXfBGQ9ZWAgMMTnQH5QSyWmVKEuJSUfPppkUPTzDQBioh7HRW AwQQN6ZiboRPPsQZSmJUXvBUxfOUViSBOjJsk5QTTxVDPdUF5JRqXuYHQnIYK3AyJtZOZrIAOddy7FLZ HrEBC6IJY0VEItHOAjDDZnBRhvSAEbLLB6FnOaPEFk KBYzLO7QZfLaNCntRWMQJvn3ZXluB6w3PZO6TD2NA0Ffa7LgFHHiZCTHXGtnXJ9qinFkKMTyYd4SC7vQ Tor5HVKdDWKzY5NkOlMgOYLgGEsjOoGnIqV3WIDwDkBxDR0rYFh8D6Z7BDQxJuNhQFL8GSL4AUOeUQEb XPB9JmDvDgBiRiEjIC1OWp8HDpT9IUC9wCWcJh6YBVV0NaRUHkNeNT3OVJb= ID Date Data Source [id number] 10/23/2020 03:58:00 PM [facility] XR SKULL LIMITED [id number] RESULTInterp reted by:Joseph Teran MDEXAMINATION: XR SKULL LIMITED [id number] INDICATION: Evaluate shunt valve setting.TECHNIQUE: Crosstable lateral image of the skull were submitted for interpretation. A total of 2 images were submitted.COMPARISON:Limited skull series dated 10/23/2020 at 10:08 AM.FINDINGS/IMPRESSION: A ventriculoperitoneal shunt catheter attached to a [employer] CERTAS programmable valve is present. The pressure setting for the valve is 2. There is no kinking or discontinuity present in imaged portions of the catheter.This document has been electronically signed by Salvador Vyas MD on 10/23/2020 3:55 PM Name Value Range Interpretation Code [facility] ID Date Data Source [id number] 10/23/2020 03:39:27 PM [facility] CT HEAD WITHOUT CONTRAST [id number] RESU LTInterpreted by:Clara Marshall MDINDICATION: Hygroma / Sears TECHNIQUE: Contiguous axial CT images of the head from the base of the skull to the vertex without IV contrast. Automated dose lowering techniques and/or adjustment according to patient size were utilized for this exam.COMPARISON: CT head from 10/22/2020.FINDINGS: Stable extra-axial fluid collection along the left convexity. Unchanged right cranioplasty and thickened dura underlying the cranioplasty. Stable encephalomalacia in bilateral anterior inferior frontal lobes and right temporal lobe. 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 Ventricular size is grossly unchanged. No midline shift. There is no acute intracranial hemorrhage or evidence of acute territorial infarction. The visualized paranasal sinuses are clear. The mastoid air cells are clear.IMPRESSION:No significant interval change in ventricular size or left extra-axial fluid collection.This document has been electronically signed by MARILYN Marshall on 10/23/2020 3:37 PM Name Value Range Interpretation Code Description [facility] Document(s) ID Date Data Source [id number] 10/23/2020 01:08:23 PM [facility] XR SKULL LIMITED [id number] RESULTInterp reted by:Joseph Teran MDEXAMINATION: XR SKULL LIMITED [id number]: Shunt valve setting.TECHNIQUE: Lateral image of the skull were submitted for interpretation. A total of 3 images were submitted.COMPARISON:Limited skull series dated 10/22/2020.FINDINGS/IMPRESSION: A ventriculoperitoneal shunt catheter attached to a [employer] CERTAS programmable valve is present. The pressure setting for the valve is 2. There is no kinking or discontinuity present in imaged portions of the catheter.This document has been electronically signed by Salvador Vyas MD on 10/23/2020 1:06 PM Name Value Range Interpretation Code Description Data Alisson rce(s) Supporting Document(s) ID Date Data Source [id number] 10/23/2020 08:19:45 AM [facility] XR SKULL LIMITED [id number] RESULTInterp reted by:Salvador Vyas MDEXAMINATION: XR SKULL LIMITED [id number] INDICATION: Post ventriculoperitoneal shunt insertion. History of hydrocephalusTECHNIQUE: A lateral image of the skull were submitted for interpretation. A total of 2 images were submitted.COMPARISON:Limited skull series dated 10/22/2020 performed at 12:36 AM.FINDINGS/IMPRESSION: A ventriculoperitoneal shunt catheter attached to a [employer] programmable valve is shown. The valve setting is 3. There is no kinking or discontinuity present in imaged portions of the catheter.This document has been electronically signed by Salvador Vyas MD on 10/23/2020 8:17 AM Name Value Range Interpretation Code Description Data Alisson rce(s) Supporting Document(s) ID Date Data Source [id number] 10/23/2020 05:05:33 AM [facility] Name Value Range Interpretation Code Description Data Alisson rce(s) Supporting Document(s) Bicarbonate [Moles/volume] in Serum 29 mmol/L 22-29 [facility] Chloride [Moles/volume] in Serum or Plasma 106 mmol/L 98-107 [facility] Creatinine [Mass/volume] in Serum or Plasma 0.65 mg/dL 0.70-1.20 L [facility] Glucose [Mass/volume] in Serum or Plasma 110 mg/dL 70-140 [facility] Potassium [Moles/volume] in Serum or Plasma 3.5 mmol/L 3.4-5.1 [facility] Sodium [Moles/volume] in Serum or Plasma 140 mmol/L 136-145 [facility] Urea nitrogen [Mass/volume] in Serum or Plasma 16 mg/dL 6-20 [facility] Anion gap 3 in Serum or Plasma 5 mmol/L 8-15 L [facility] Osmolality of Serum or Plasma by calculation 292 mosm/kg 275-300 [facility] Creatinine/Urea nitrogen [Mass Ratio] in Serum or Plasma 24 [facility] Calcium [Mass/volume] in Serum or Plasma 9.9 mg/dL 8.6-10.0 [facility] Glomerular filtration rate/1.73 sq M pre dicted among non-blacks [Volume Rate/Area] in Serum or Plasma by Creatinine-based formula (MDRD) >6 0 [facility] Glomerular filtration rate/1.73 sq M pre dicted among blacks [Volume Rate/Area] in Serum or Plasma by Creatinine-based formula (MDRD) >60 [facility] ID Date Data Source [id number] 10/23/2020 05:05:33 AM [facility] Name Value Range Interpretation Code Description Data Alisson rce(s) Supporting Document(s) Magnesium [Mass/volume] in Serum or Plasma 2.0 mg/dL 1.6-2.6 [facility] ID Date Data Source [id number] 10/23/2020 05:05:33 AM [facility] Name Value Range Interpretation Code Description Data Alisson rce(s) Supporting Document(s) Phosphate [Mass/volume] in Serum or Plasma 2.9 mg/dL 2.5-4.5 [facility] ID Date Data Source [id number] 10/23/2020 05:18:33 AM [facility] Name Value Range Interpretation Code Description Data Alisson rce(s) Supporting Document(s) Leukocytes [#/volume] in Blood by Automated count 6.1 10*3/uL 4-10 [facility] Erythrocytes [#/volume] in Blood by Automated count 5.14 10*6/uL 4.6- 6.1 [facility] Hemoglobin [Mass/volume] in Blood 13.1 g/dL 13.5-18 L [facility] Hematocrit [Volume Fraction] of Blood by Automated count 41.1 % 4 1-53 [facility] Erythrocyte mean corpuscular volume [Entitic volume] by Auto mated count 79.9 fL 80-96 L [facility] Erythrocyte mean corpuscular hemoglobin [Entitic mass] by Automated count 25.5 pg 27-33 L [facility] Erythrocyte mean corpuscular hemoglobin concentration [Mass/volume] by Automated count 31.9 g/dL 32.0-36.0 [facility] width [Ratio] by Automated count 15.4 % 11.5-14.5 H [facility] Platelets [#/volume] in Blood by Automated count 123 10*3/uL 150-400 L [facility] Confirmed ID Date Data Source [id number] 10/23/2020 01:15:50 AM [facility] Name Value Range Interpretation Code Description Data Alisson rce(s) Supporting Document(s) Glucose [Mass/volume] in Capillary blood by Glucometer 121 mg/dL 70- 140 [facility] ID Date Data Source [id number] 10/22/2020 05:48:13 PM [facility] Name Value Range Interpretation Code Description Data Alisson rce(s) Supporting Document(s) History and Physical [facility] WWEQPz7xBhKHFzYo17/RTLhcAEAqf2JdDRdcWKc0CHgkRJQoJ0FkWJT8oQ7zRAN0MEkDKkDpTwJyOLAs lbm [file] ICAgICAgICAgICAgICAgICAgICAgICAgICAgICAgIC AgICAgICAgICAgICAgICAgICAgICANCiAgICAgICAgICAgICAgICAgICAgICAgICAgICAgICAgICAgIC AgICAgICAgICAgICAgICAgICAgICAgICAgICAgICAgICAgICAgICAgICAgICAgICAgICAgICAgICAgIC AgICANCiAgICAgICAgICAgICAgICAgICAgICAgICAg ICAgICAgICAgICAgICAgICAgICAgICAgICAgICAgICAgICAgICAgICAgICAgICAgICAgICAgICAgICAg ICAgICAgICAgICAgICANCiAgICAgICAgICAgICAgICAgICAgICAgICAgICAgICAgICAgICAgICAgICAg ICAgICAgICAgICAgICAgICAgICAgICAgICAgICAgIC AgICAgICAgICAgICAgICAgICAgICAgICANCiAgICAgICAgICAgICAgICAgICAgICAgICAgICAgICAgIC AgICAgICAgICAgICAgICAgICAgICAgICAgICAgICAgICAgICAgICAgICAgICAgICAgICAgICAgICAgIC AgICAgICANCiAgICAgICAgICAgICAgICAgICAgICAg ICAgICAgICAgICAgICAgICAgICAgICAgICAgICAgICAgICAgICAgICAgICAgICAgICAgICAgICAgICAg ICAgICAgICAgICAgICAgICANCiAgICAgICAgICAgICAgICAgICAgICAgICAgICAgICAgICAgICAgICAg ICAgICAgICAgICAgICAgICAgICAgICAgICAgICAgIC AgICAgICAgICAgICAgICAgICAgICAgICAgICANCiAgICAgICAgICAgICAgICAgICAgICAgICAgICAgIC AgICAgICAgICAgICAgICAgICAgICAgICAgICAgICAgICAgICAgICAgICAgICAgICAgICAgICAgICAgIC AgICAgICAgICANCiAgICAgICAgICAgICAgICAgICAg ICAgICAgICAgICAgICAgICAgICAgICAgICAgICAgICAgICAgICAgICAgICAgICAgICAgICAgICAgICAg ICAgICAgICAgICAgICAgICAgICANCiAgICAgICAgICAgICAgICAgICAgICAgICAgICAgICAgICAgICAg ICAgICAgICAgICAgICAgICAgICAgICAgICAgICAgIC AgICAgICAgICAgICAgICAgICAgICAgICAgICAgICANCjw/pDZkE0tgoHBgvvO5B2baVo3FEc3GKB2rf6 LpRGGeCBiusyFcMfkWPkOyXGHvRbzYAoo9NIsnRG6KgSQuR7QiH1CeCCixRG1DIUVzCPMhpPAxMSWnUU LwUwK5YGLbJFhaXI8JvVQvLGbgDKXqRHUmWS4SOXKe E455qnApMO1NSd0XGrVpLR8dec2ICCkePQXfFycNUxr8YOthVV1XyGYqqKPmEDVkCBKCBcYzB9bvw3By FCzfEVFLZPvjOW4Oj8JbcWXkLVf+Ke3BKQ1ve4YyXKcaEHJiDE3qaw7NKJfXGeIjU2MbrOoqLYupGEDv mQHKfSF0xL1iYPPVbSwzKDAiAZNnTI8gXF0bEVNjNK AjOoMvORPATE5IZYXzKTZsaSNaOOLiPGYVPJ3TRQxmXXN4GAGksiRqkNJdYDazHB7TXOSnpzQmDPyzQB BSDQo+Mn7NEE1wd9RcTHlkPCXnPN7mhx5HXLtBRaErL3V4kYWrC8Z9BSioWe1TQDFkRKKbMKRsBWCIBL pbLM7FPC0zuaN6DF4AhHFdQXJzBLXifEWeRWu4V45w xHTgMOnrII8TJWK+Patricia+Jt5RSBHsYDUtWLZvMwPzJIPSCdJgH2EvL9OTq3TvL2UyPE31oInfeuByFSza UO1YHR6sXCQbVUVKPJ4QbUOlvG1wnsYwMbGnAGPFTlKxN80ktNCqCUYcYZN0NNYwLz8TQUPeS9AvbdGu yIdsrfQsZRSfERDUDE6ERZpzagRagEGzqQobRA73gH zdED2XLp8MVrHyJD8adr5JzIZhQm4CCAJrMU5XZCVdPILcVSNkNVS6FBUqJvYsMPhiACMxCDSjBJS4LR XsPFWyTV2AJeKdWVZuFZJxVtLpONPiLDOgyf6KUNIcRCNuEIBsYBYwQXLrQWRqDSmjFEEaXNCdOKF2ZR WbSGRqQT3HBePyHWLsTLRuVOJhFPTcCZLybl1QGQQf WXWjRgFnWFNvFNWnWHEuFKpgUAPsWMDiEgp3QDQlHUYuOF3YCrOlXYVfJBO3KaImLUNgHZOlji0QQGLb CXAiIvD4LRWpZTBaPIViAHobFJIvLWN0VsUbEAEwWEZcFA3SQrOaYKAxIDQ8IPVcIMIjCUZpaw0DHXTk FJInJNIwAhMuYLUjYNAiTVdrDQIzITW5BMSuAWXpZT KxGT0QGzFpJGBtIRDjQGoiJDPoDBKtpb3WPVSbTGAkJqO8QkTfULSrSGSwXButRMOeYHQ1NmK6LLMvNN KiER5ICnEjHTBdXPkiOKSwMQYkYFBvmu9ZJOWfXNLuLBN7GwTyVIOrGOUlHXtqGXPeVBH2LWK9ERXmBL PdAW8INpHtQYmaPKUDDov9WCwdO3e0PFNqPG1JK3Hl m1JlXBloRPLTWWmsDY4ivkSoACYzBa1HD7nKElmoLFK9HGCjZeSeCLmoLWT7RwAzVkKaBgLlGJI6PFXu Jl5nXWHvRidwLyQaACI1ZXU9IiY2DAOwFrPsQHTnXFU4RUMvCcHaIE1DYv0ZOcH6TEF2bCCtNc3AXXT5 Tg2PQHPXW6WEMg== ID Date Data Source [id number] 10/22/2020 05:44:23 PM [facility] Name Value Range Interpretation Code Description Data Alisson rce(s) Supporting Document(s) [facility] IQOFAs0nGfZCAvFq49/STPkzSCWmm6IsWPlgHVc2LKaiWFPoN9WbEGF1hY7wNBY7DHiAMeCbUqImFUNx lbm [file] AgICAgICAgICAgICAgICAgICAgICAgICAgICAgICAgICAgICAgICAgICAgICAgICAgICAgICAgICAgIC AgICAgICAgICAgICAgICAgDQogICAgICAgICAgICAg ICAgICAgICAgICAgICAgICAgICAgICAgICAgICAgICAgICAgICAgICAgICAgICAgICAgICAgICAgICAg ICAgICAgICAgICAgICAgICAgICAgICAgICAgDQogICAgICAgICAgICAgICAgICAgICAgICAgICAgICAg ICAgICAgICAgICAgICAgICAgICAgICAgICAgICAgIC AgICAgICAgICAgICAgICAgICAgICAgICAgICAgICAgICAgICAgDQogICAgICAgICAgICAgICAgICAgIC AgICAgICAgICAgICAgICAgICAgICAgICAgICAgICAgICAgICAgICAgICAgICAgICAgICAgICAgICAgIC AgICAgICAgICAgICAgICAgICAgDQogICAgICAgICAg ICAgICAgICAgICAgICAgICAgICAgICAgICAgICAgICAgICAgICAgICAgICAgICAgICAgICAgICAgICAg ICAgICAgICAgICAgICAgICAgICAgICAgICAgICAgDQogICAgICAgICAgICAgICAgICAgICAgICAgICAg ICAgICAgICAgICAgICAgICAgICAgICAgICAgICAgIC AgICAgICAgICAgICAgICAgICAgICAgICAgICAgICAgICAgICAgICAgDQogICAgICAgICAgICAgICAgIC AgICAgICAgICAgICAgICAgICAgICAgICAgICAgICAgICAgICAgICAgICAgICAgICAgICAgICAgICAgIC AgICAgICAgICAgICAgICAgICAgICAgDQogICAgICAg ICAgICAgICAgICAgICAgICAgICAgICAgICAgICAgICAgICAgICAgICAgICAgICAgICAgICAgICAgICAg ICAgICAgICAgICAgICAgICAgICAgICAgICAgICAgICAgDQogICAgICAgICAgICAgICAgICAgICAgICAg ICAgICAgICAgICAgICAgICAgICAgICAgICAgICAgIC AgICAgICAgICAgICAgICAgICAgICAgICAgICAgICAgICAgICAgICAgICAgDQogICAgICAgICAgICAgIC AgICAgICAgICAgICAgICAgICAgICAgICAgICAgICAgICAgICAgICAgICAgICAgICAgICAgICAgICAgIC BaNPJtDNZxULCaQTUlPKBvFULnMZTrUNPpCBq7E3mp ZRJqEZHlTD0yNAo5Bo3+NAnSXjWfZRY8rvEpmU1KGM7xy0JmCWqfEQScx4NpXSg6EM1NJVHeBUzmWP8M PRwoym7QSKKfRSPadOFGn3snPxQtCHI2KSPwFieoHL2ZCELwB3hjptVcYFByDLVAQOjiYARNVUpvYKJP IRXmTVPtHrNvWTciAQ2We4YbhTP5MYa+Rn3TZL2ff0 QfSNhwSOKtSL3ehs3DHUhQYyEdV9BptnP9MPSgVJBdSj8JTQMoMFGhcEMqPrNrWZIKJdVlW4ZgyU96VY ENCj4+UBozexLaJfsDEkDpRSAym4BuHWy8NM1QEKCoDVo1rPOhI96xx4QsoNClLgomSzJbaMaiOYybV1 hiLY5QDDV4FJZqDGjzSmRxKKZoSxpbYzUTQOgDRxLq A7Igb4HkTvY8NIDaOsRyNFljQQWeBoW1BA88qAreIQ2AJOOhJLTdGF90LGRuNSIqYl9ZMb4QOtWgVC9g ve9ZLfXvNTEuYvsGQfb6BTauKA0DjSAhW6FzdKHbd0qXHeRfG7AOQQC5EEPwXh9GYOMsPdHrIIAoHNyt JN2yOKBlBQONgSmvalD1LX3XXP4gpgBgJE3ZTwAjLl 5tPi6UVaKhO2HuR0KrYPGhORBGQPjzXL3GHNfdZF6yAV8Br5KEwSDdaM2yse2FJZXpTFWxQusaag7PBc sgH5X3mLgmZCWsWfGlHYYTMFxzXG7SQNIvXXC7XYLzTJDrSOJZUiKlP79bZU3UH7Jwn93uSmC1UOYoJt TkATuoQX64wVmxgiMxxUBdfMduMP0QHe2+DQplbmRv MhzSNvhgQBVELmKmJbHILgAxLUGqAXJrJNMwInI1SmOcGh9EMQGsUASyDUMzDbIjMZFcDMUmGXoyZGBf AIN3Wjf8MIBwGDRtPA5ZUqCyBGVdYyO3RAFvBDBrKPEzii6XUHVkULCmFIJ6SbKeHYVbWEAcNMomDCAv ZXHlXDQ6LEEfFZTwHP3WBvFnTPKqQJZjFxUfDXXwUY Vvya7ZWYYlAXQjVwt5FgDgFEItXTWcFIheVYDlMBE6JZy3YFDqBGHfSD2XMjYuYUQpYFgnNHQgZPKcTO Piqe3PRXHrIVAqTWG5KNNmDGGcYJYgFRetXIPbAHDdMAX6CQFnRYKdUZ8WIaTgWYCzLHHlPCYrHUIyXC Hrxa5XWOOsPBUgTgIiFXYmDWWyYKLjQXfuUAYaDRIy Zms6IQFsPAQxMU8QOtZzBBFfQXK3CAJbCPMeODZsyf2VBPMaQACbNKE9CYUfCUCaEGCyZBdiXXKcBPB5 RxUwQYXwAGKxXG8KOnHdYMUfNFP7YkWgSYLwGVPgtn8NMAAbRSJnFJl0YSYvQTCtDCQxUOvkKDSkFDV6 GUi1GRElAXMaJG6UFbSjVGZkQPSaPeTxQQYaILXbln 5SZPPeQYXuJzM8EMCdBMDiQQSzHAspZAIrEOP8FDwqTZYeLCWvTY2FAqAjJXThKmfmWAFyQDErHSNahd 6CVVZbXNWiORXjUZRmFVIoEOXkYMfwMBFiCWB3SEY8QRFjQXXnLQ3IWwQkETWyXbq9DSRwAZJnJCLrgs 2VEHEyXQJnIVF0JVUtCKAwGHBzPVkhJRLyZAF3Qkz6 JZDuAEWgGT5MOxYpJFDjHuBuPUShKPFzNPXwfj4KNPTyIWZjBGW7DbHlXVMkIGYyKRfqUOLmALDrYjP1 ZBVnGQWuBP6GYlRkXKCmQbA5ImpdRXFqTPOwua4XjZXlhDcsgw6TWTwCJq0HcRauYOA9RNapSh9ecYCv IwOqRTRJMg4RqyHwXGOwXBUZQFpsXTUhIOB5VlPmCb P8BZJ4OmQkI8GvCqXyNHZuBXI0G1DhBKO8LaB7BgH1LCLxPIM0Vvt7MLIeQTShQRNuDAAuJmHoWYO3GL k+PN2wJDi+Aj9Lb9BfyiY7hiQmMCpwYxCbQm3SEFCFD4VIJy== ID Date Data Source [id number] 10/22/2020 03:02:08 PM [facility] CT HEAD WITHOUT CONTRAST [id number] RESU LTInterpreted by:Salvador Vyas MDEXAMINATION: CT HEAD WITHOUT CONTRAST [id number] INFORMATION: History of hydrocephalus.TECHNIQUE: Contiguous axial CT images of the head were acquired without intravenous contrast administration from the base of the skull to the vertex and submitted for interpretation. Automated dose lowering techniques and/or adjustment according to patient size were utilized for this examination.COMPARISON: CT of the head dated 10/21/2020.FINDINGS: Postoperative changes post right calvarial cranioplasty are unchanged. Thickened dura unde rlying the cranioplasty is also unchanged. There is also no change in thickened dura underlying the left frontal and parietal bones. A ventriculoperitoneal shunt catheter that inserts from a left frontal approach and terminates in the left lateral ventricle is unchanged in position there is no significant change in size of moderately enlarged lateral ventricles and 3rd ventricle. Encephalomalacia and gliosis in the anterior inferior portions of the left and right frontal lobes is unchanged. There is no acute intracranial hemorrhage or evidence of acute territorial infarction. No abnormal extra-axial fluid collections are shown. There is no shift of the midline structures. Normal cedeño - white matter differentiation is preserved. Periventricular and juxtacortical white matter small vessel ischemic changes are present.Imaged portions of the paranasal sinuses and mastoid air cells are clear.IMPRESSION:1. No significant change in moderate ventriculomegaly post ventricle peritoneal shunt insertion.2. Postoperative changes post right calvarial cranioplasty.3. No evidence of acute territorial infarction, acute intracranial hemorrhage, or other acute intracranial disease process.This document has been electronically signed by Salvador Vyas MD on 10/22/2020 3:00 PM Name Value Range Interpretation Code Description Data Alisson rce(s) Supporting Document(s) ID Date Data Source [id number] 10/22/2020 09:42:17 AM [facility] CT HEAD WITHOUT CONTRAST [id number] RESU LTInterpreted by:Shayne Farley MDINDICATION: 55-year-old male with history of sarcoidosis, epilepsy, and trauma post subdural hemorrhage decompression and cranioplasty in August 2020, acute altered mental state.TECHNIQUE: Axial noncontrast CT of the head was obtained. Coronal and sagittal views were reformatted. Automated dose lowering technique and/or adjustment according to patient size were utilized for this exam.COMPARISON: CT head dated 10/21/2020 9 hours prior from outside hospital and 08/21/2020.FINDINGS: Stable acute on chronic subdural hemorrhage along the left frontal and temporal bones. Stable small subdural collection along the cranioplasty site versus pachymeningeal thickening, unchanged from prior study. No new intracranial hemorrhage.Encephalomalacia is present in the right frontal lobe. There is no evidence of acute territorial infarction. Mass effect with 3 mm rightward midline shift is present. Lateral and third ventricles are enlarged, similar to the study 9 hours prior. Left frontal approach EVD shunt terminates in the medial aspect of the left lateral ventricle near the cole of [place], unchanged from prior study. Basal cisterns and foramen magnum are patent.Calcified plaque is present in the bilateral intracranial internal carotid arteries. Right frontotemporal cranioplasty is present. Paranasal sinuses are clear. The mastoid air cells are clear.IMPRESSION:1. Stable acute on chronic subdural hemorrhage along the left hemisphere.2. Lateral and third ventricles are enlarged, unchanged from the study 9 hours prior.This document has been electronically signed by Marin Mensah MD on 10/22/2020 9:40 AM Name Value Range Interpretation Code Description Data Alisson rce(s) Supporting Document(s) ID Date Data Source [id number] 10/22/2020 06:08:44 AM [facility] Name Value Range Interpretation Code Description Data Alisson rce(s) Supporting Document(s) Bicarbonate [Moles/volume] in Serum 27 mmol/L 22-29 [facility] Chloride [Moles/volume] in Serum or Plasma 112 mmol/L 98-107 H [facility] Creatinine [Mass/volume] in Serum or Plasma 0.65 mg/dL 0.70-1.20 L [facility] Glucose [Mass/volume] in Serum or Plasma 85 mg/dL 70-140 [facility] Potassium [Moles/volume] in Serum or Plasma 3.6 mmol/L 3.4-5.1 [facility] Sodium [Moles/volume] in Serum or Plasma 148 mmol/L 136-145 H [facility] Urea nitrogen [Mass/volume] in Serum or Plasma 15 mg/dL 6-20 [facility] Anion gap 3 in Serum or Plasma 9 mmol/L 8-15 [facility] Osmolality of Serum or Plasma by calculation 306 mosm/kg 275-300 H [facility] Creatinine/Urea nitrogen [Mass Ratio] in Serum or Plasma 24 [facility] Calcium [Mass/volume] in Serum or Plasma 10.1 mg/dL 8.6-10.0 H [facility] Glomerular filtration rate/1.73 sq M pre dicted among non-blacks [Volume Rate/Area] in Serum or Plasma by Creatinine-based formula (MDRD) >6 0 [facility] Glomerular filtration rate/1.73 sq M pre dicted among blacks [Volume Rate/Area] in Serum or Plasma by Creatinine-based formula (MDRD) >60 [facility] ID Date Data Source [id number] 10/22/2020 06:08:44 AM [facility] Name Value Range Interpretation Code Description Data Alisson rce(s) Supporting Document(s) Magnesium [Mass/volume] in Serum or Plasma 1.9 mg/dL 1.6-2.6 [facility] ID Date Data Source [id number] 10/22/2020 06:08:44 AM [facility] Value Range Interpretation Code Description Data Alisson rce(s) Supporting Document(s) Phosphate [Mass/volume] in Serum or Plasma 3.8 mg/dL 2.5-4.5 [facility] ID Date Data Source [id number] 10/22/2020 06:59:01 AM [facility] Value Range Interpretation Code Description Data Alisson rce(s) Supporting Document(s) Leukocytes [#/volume] in Blood by Automated count 7.9 10*3/uL 4-10 [facility] Erythrocytes [#/volume] in Blood by Automated count 4.89 10*6/uL 4.6- 6.1 [facility] Hemoglobin [Mass/volume] in Blood 12.6 g/dL 13.5-18 L [facility] Hematocrit [Volume Fraction] of Blood by Automated count 39.3 % 4 1-53 L [facility] Erythrocyte mean corpuscular volume [Entitic volume] by Auto mated count 80.2 fL 80-96 [facility] Erythrocyte mean corpuscular hemoglobin [Entitic mass] by Automated count 25.7 pg 27-33 L [facility] Erythrocyte mean corpuscular hemoglobin concentration [Mass/volume] by Automated count 32.1 g/dL 32.0-36.0 [facility] distribution width [Ratio] by Automated count 15.4 % 11.5-14.5 H [facility] Platelets [#/volume] in Blood by Automated count 111 10*3/uL 150-400 L [facility] Confirmed ID Date Data Source [id number] 10/22/2020 03:12:16 AM [facility] XR ABDOMEN AP ABD SUPINE ONLY [id number] RESULTInterpreted by:JUNIOR Durant INFORMATION: Exam: XR Abdomen, 1 View Exam date and time: 10/22/2020 3:02 AM Age: 55 years old Clinical indication: Abdominal pain; Additional info: G tube confirmation TECHNIQUE: Imaging protocol: XR of the abdomen. Views: Frontal supine view of the abdomen. 1 View. COMPARISON: CR XR ABDOMEN AP SUPINE AND LATERAL VIEW [id number] 10/21/2020 8:06 PM FINDINGS: Tubes, catheters and devices: Percutaneous gastrostomy tube projects in the left upper quadrant. There is a left-sided 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 shunt that terminates in the right lower quadrant. Gastrointestinal tract: Moderate stool throughout the colon without obstruction. Vasculature: Probable pelvic phleboliths. Bones/joints: Unremarkable. IMPRESSION: 1. Percutaneous gastrostomy tube projects in the left upper quadrant. 2. Other findings as described. THIS DOCUMENT HAS BEEN ELECTRONICALLY SIGNED BY MALKA TORRES MDThis document has been electronically signed by Malka Torres MD on 10/22/2020 3:12 AM Name Value Range Interpretation Code Description Data Alisson rce(s) Supporting Document(s) ID Date Data Source [id number] 10/22/2020 01:16:38 AM [facility] XR SKULL LIMITED [id number] RESULTInterp reted by:JUNIOR Cota INFORMATION: Exam: XR Skull, Less Than 4 Views Exam date and time: 10/22/2020 1:09 AM Age: 55 years old Clinical indication: Other: Shunt dial setting TECHNIQUE: Imaging protocol: XR of the skull, less than 4 views. COMPARISON: CR XR SKULL LIMITED [id number] 10/21/2020 10:36 PM FINDINGS: Tubes, catheters and devices: The [employer]man Certa shunt valve setting reads 146 mm H20. Sinuses: Well aerated. No opacification. Bones/joints: No fracture. Soft tissues: Unremarkable. IMPRESSION: The [employer]a shunt valve setting reads 146 mm H20. THIS DOCUMENT HAS BEEN ELECTRONICALLY SIGNED BY JOHN BLOCK MDThis document has been electronically signed by John Block MD on 10/22/2020 1:16 AM Name Value Range Interpretation Code Description Data Alisson rce(s) Supporting Document(s) ID Date Data Source [id number] 10/21/2020 11:18:45 PM [facility] XR SKULL LIMITED [id number] RESULTInterp reted by:TIANA CotaROCEDURE INFORMATION: Exam: XR Skull, Less Than 4 Views Exam date and time: 10/21/2020 10:53 PM Age: 55 years old Clinical indication: Device placement; Other: Eval shunt dial setting; Additional info: Evaluate shunt TECHNIQUE: Imaging protocol: XR of the skull, less than 4 views. COMPARISON: CT HEAD WITHOUT CONTRAST [id number] 10/21/2020 8:55 PM FINDINGS: Tubes, catheters and devices: Cod[employer] Certa shunt valve setting reads 71 mm H20. Sinuses: Well aerated. No opacification. Bones/joints: No fracture. Soft tissues: Unremarkable. IMPRESSION: Codman Certa shunt valve setting reads 71 mm H20. THIS DOCUMENT HAS BEEN ELECTRONICALLY SIGNED BY JOHN BLOCK MDThis document has been electronically signed by John Block MD on 10/21/2020 11:18 PM Name Value Range Interpretation Code Description Data Alisson rce(s) Supporting Document(s) ID Date Data Source [id number] 10/21/2020 11:15:06 PM [facility] Name Value Range Interpretation Code Description Data Alisson rce(s) Supporting Document(s) Color of Urine [facility] Clarity of Urine [facility] Specific gravity of Urine by Refractometry automated 1.013 1.003 -1.030 [facility] pH of Urine by Automated test strip 7.0 5.0-8.0 [facility] Protein [Mass/volume] in Urine by Automated test strip Neg [facility] Glucose [Mass/volume] in Urine by Automated test strip Neg [facility] Ketones [Mass/volume] in Urine by Automated test strip Neg [facility] Bilirubin.total [Presence] in Urine by Automated test strip Negative [facility] Hemoglobin [Presence] in Urine by Automated test strip Neg [facility] Leukocyte esterase [Presence] in Urine by Automated test strip Negative [facility] Nitrite [Presence] in Urine by Automated test strip Negati [facility] Leukocytes [#/area] in Urine sediment by Automated count 0 /HPF 0 -5 [facility] Erythrocytes [#/area] in Urine sediment by Automated count 0 /HPF 0-3 [facility] ID Date Data Source [id number] 10/22/2020 12:01:41 AM [facility] Name Value Range Interpretation Code Description Data Alisson rce(s) Supporting Document(s) Osmolality of Urine 426 mosm/kg 300-1000 [facility] ID Date Data Source [id number] 10/22/2020 12:14:43 AM [facility] Name Value Range Interpretation Code Description Data Alisson rce(s) Supporting Document(s) Sodium [Moles/volume] in Urine 41 mmol/L [facility] Confirmed ID Date Data Source [id number] 10/21/2020 09:59:00 PM EST [facility] Name Value Range Interpretation Code Description Data Alisson rce(s) Supporting Document(s) SARS-CoV-2 RNA 2019 nCoV Real-Time RT-PCR: NOT DETECTED [facility] This lab was ordered by [facility] and reported by [facility]. ID Date Data Source [id number] 10/22/2020 12:19:26 AM [facility] Service Cmnt XXX-Imp : NoneRespiratory P CR Panel : PCR ResultsMicroorganism XXX Cult : This test does NOT include the virus that causes COVID-19. See separate test for this result.HAdV DNA QI ARNULFO+non-probe : Not DetectedHCoV 229ERNA Nph QI ARNULFO+non-probe : Not DetectedHCoV PZO2LFR Nph QI ARNULFO+non-probe : Not YclebzzeDPqOKK36 RNA Nph QI ARNULFO+non-probe : Not YqhxxgrfMDwJUY74 RNA Upper resp QI ARNULFO+probe : Not DetectedhMPV RNA Nph QINAA+non-probe : Not DetectedRV+EV RNA Nph QI ARNULFO+non-probe : Not DetectedFLUAV RNA Nph QI ARNULFO+ non-probe : Not DetectedFLUBV RNA Nph QI ARNULFO+non-probe : Not DetectedHPIV1 RNA NphQINAA+non- probe : Not DetectedHPIV2 RNA Nph QINAA+non-probe : Not DetectedHPVI3 RNA Nph ARNULFO+non-probe : Not DetectedHPIV4 RNA Nph Q ARNULFO+non-probe : Not DetectedRSV RNA Nph Q ARNULFO+non-probe : Not DetectedB pert.PT PrmtNph Q ARNULFO+non-probe : Not DetectedC pneum DNA Nph Q ARNULFO+non-probe : Not DetectedM pneum DNA Nph Q ARNULFO+non- probe : Not Detected Name Value Range Interpretation Code Description Data Alisson rce(s) Supporting Document(s) ID Date Data Source [id number] 10/21/2020 11:59:13 PM [facility] Name Value Range Interpretation Code Description Data Alisson rce(s) Supporting Document(s) Specimen source [Identifier] of Unspecified specimen [facility] SARS-CoV-2 RNA 2019 nCoV Real-Time RT-PCR: NOT DETECTED [facility] Assay Performed [facility] Influenza virus A RNA [Presence] in Naso pharynx by Target amplification with non-probe based detection Not Detected [facility] Influenza virus B RNA [Presence] in Naso pharynx by Target amplification with non-probe based detection Not Detected [facility] Respiratory syncytial virus RNA [Presenc e] in Nasopharynx by Target amplification with non-probe based detection Not Detected [facility] Patients first test for 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 Patient resides in a congregate care setting [facility] status [facility] ID Date Data Source [id number] 10/21/2020 09:04:59 PM [facility] XR SKULL LIMITED [id number] RESULTInterp reted by:Gio Contreras MDPROCEDURE INFORMATION: Exam: XR Skull, Less Than 4 Views Exam date and time: 10/21/2020 7:59 PM Age: 55 years old Clinical indication: Device placement; Cerebral fluid drainiage device or shunt; Additional info: Shunt series TECHNIQUE: Imaging protocol: XR of the skull, less than 4 views. COMPARISON: No relevant prior studies available. FINDINGS: Tubes, catheters and devices: There is an intact ventricular peritoneal shunt present extending from the ventricles on the left side into the chest. Sinuses: Well aerated. No opacification. Bones/joints: A large craniotomy defect is seen with partial resection of the right side of the skull. Soft tissues: Unremarkable. IMPRESSION: 1. Large right side skull resection 2. Intact 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 shunt left-side in good position. 3. Otherwise negative examination THIS DOCUMENT HAS BEEN ELECTRONICALLY SIGNED BY GIO CONTRERAS MDThis document has been electronically signed by Gio Contreras MD on 10/21/2020 9:04 PM Name Value Range Interpretation Code Description Data Alisson rce(s) Supporting Document(s) ID Date Data Source [id number] 10/21/2020 09:02:34 PM [facility] XR ABDOMEN AP SUPINE AND LATERAL VIEW [id number] RESULTInterpreted by:Gio Contreras MDPROCEDURE INFORMATION: Exam: XR Abdomen, 2 Views Exam date and time: 10/21/2020 7:59 PM Age: 55 years old Clinical indication: Device placement; Non- vascular device; Other: Shunt series TECHNIQUE: Imaging protocol: XR of the abdomen. Views: 2 Views. COMPARISON: No relevant prior studies available. FINDINGS: Gastrointestinal tract: Normal. No bowel dilation. Intraperitoneal space: Normal. No free air. Shunt tubing is seen in the left lower chest, and abdomen extending from the left upper quadrant to the right lower quadrant. This tubing is intact. There is a gastrostomy tube in place in the projection of the stomach. Bones/joints: Unremarkable for age. IMPRESSION: 1. No acute findings. 2. Intact 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 shunt tubing bilateral lower quadrants. 3. Gastrostomy tube is in the stomach THIS DOCUMENT HAS BEEN ELECTRONICALLY SIGNED BY GIO CONTRERAS MDThis document has been electronically signed by Gio Contreras MD on 10/21/2020 9:02 PM Name Value Range Interpretation Code Description Data Alisson rce(s) Supporting Document(s) ID Date Data Source [id number] 10/21/2020 08:59:44 PM [facility] XR CHEST FRONTAL AND LATERAL [id number] RESULTInterpreted by:TIANA Da SilvaROCEDURE INFORMATION: Exam: XR Chest, 2 Views Exam date and time: 10/21/2020 7:59 PM Age: 55 years old Clinical indication: Device placement; Other: Shunt series TECHNIQUE: Imaging protocol: XR of the chest Views: 2 views. COMPARISON: No relevant prior studies available. FINDINGS: Lungs: Right perihilar fibrotic densities. There is interstitial congestion seen in the left upper lobe Pleural space: There is a right lung subpulmonic pleural effusion. No pneumothorax. Heart/Mediastinum: Unremarkable. No cardiomegaly. Calcified granulomas seen in the bilateral perihilar region. A ventricular peritoneal shunt is seen on the left side appearing intact. Bones/joints: Unremarkable. IMPRESSION: 1. Left upper lobe interstitial congestion. 2. Right perihilar fibrotic changes. 3. Right lung effusion 4. 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 Bilateral perihilar calcified lymph nodes THIS DOCUMENT HAS BEEN ELECTRONICALLY SIGNED BY GIO CALVIN MDThis document has been electronically signed by Gio Contreras MD on 10/21/2020 8:59 PM Name Value Range Interpretation Code Description Data Alisson rce(s) Supporting Document(s) ID Date Data Source [id number] 10/21/2020 08:59:13 PM [facility] Name Value Range Interpretation Code Description Data Alisson rce(s) Supporting Document(s) pH of Venous blood 7.42 7.36-7.41 H [facility] Carbon dioxide [Partial pressure] in Venous blood 45 mmHg 40-45 [facility] Oxygen [Partial pressure] in Venous blood 47 mmHg [facility] Base excess standard in Venous blood by calculation 4 mmol/L [facility] Oxygen saturation Calculated from oxygen partial pressure in Venous blood 83 % 60-85 [facility] Lactate [Moles/volume] in Venous blood 1.0 mmol/L 0.5-2.2 [facility] Bicarbonate [Moles/volume] in Venous blood 31 mmol/L [facility] ID Date Data Source [id number] 10/24/2020 08:08:18 AM [facility] Name Value Range Interpretation Code Description Data Alisson rce(s) Supporting Document(s) Oxcarbazepine [Mass/volume] in Serum or Plasma 17 ug/mL 10-35 [facility] (NOTE)This test was developed and its pe rformance characteristicsdetermined by [facility]. It has not been cleared or approvedby the Food and Drug Administration. Detection Limit = 1Performed At: [facility] [id number] [place], [place] [id number] Sanjai MD Ph:[phone] ID Date Data Source [id number] 10/22/2020 08:53:37 AM [facility] Name Value Range Interpretation Code Description Data Alisson rce(s) Supporting Document(s) SARS coronavirus 2 IgG Ab [Presence] in Serum or Plasma by I mmunoassay Negative [facility] Positive results indicate thatantibodies of SARS-CoV-2 weredetected and the individualhas potentially been exposedto COVID-19. The assay is intented for use asan aid in identifying immune response to SARS-CoV-2 virus.Testing is performed using the[employer] Counsel[employer] SARS-CoV-2 IgG assay for use under theA's Emergency UseAuthorization (EUA) to allow forrapid response during a declaredpublic health emergency. Thisassay has been validated by theDepartment of Pathology [facility].Additional information isavailable on the following FDAwebsites for health careproviders and recipients .https://www.fda.gov/media/637157/downloadhttps://www.fda.gov/media/884891/downl oadFor Use under Emergency Use Authorization only. ID Date Data Source [id number] 10/21/2020 09:52:33 PM [facility] Name Value Range Interpretation Code Description Data Alisson rce(s) Supporting Document(s) Troponin T.cardiac [Mass/volume] in Serum or Plasma <0.01 [facility] ID Date Data Source [id number] 10/21/2020 09:52:33 PM [facility] Value Range Interpretation Code Description Data Alisson rce(s) Supporting Document(s) Albumin [Mass/volume] in Serum or Plasma by Bromocresol green (BCG) dye binding method 3.3 g/dL 3.5-5.2 L [facility] Bilirubin.total [Mass/volume] in Serum or Plasma 0.4 mg/dL <1.2 [facility] Calcium [Mass/volume] in Serum or Plasma 10.6 mg/dL 8.6-10.0 H [facility] Chloride [Moles/volume] in Serum or Plasma 113 mmol/L 98-107 H [facility] Creatinine [Mass/volume] in Serum or Plasma 0.72 mg/dL 0.70-1.20 [facility] Glucose [Mass/volume] in Serum or Plasma 91 mg/dL 70-140 [facility] Alkaline phosphatase [Enzymatic activity/volume] in Serum or Plasma 109 U/L 40-129 [facility] Potassium [Moles/volume] in Serum or Plasma 3.9 mmol/L 3.4-5.1 [facility] Protein [Mass/volume] in Serum or Plasma 7.6 g/dL 6.4-8.3 [facility] Sodium [Moles/volume] in Serum or Plasma 154 mmol/L 136-145 H [facility] Aspartate aminotransferase [Enzymatic activity/volume] in Serum or Plasma 64 U/L <40 H [facility] Urea nitrogen [Mass/volume] in Serum or Plasma 17 mg/dL 6-20 [facility] Osmolality of Serum or Plasma by calculation 319 mosm/kg 275-300 H [facility] Creatinine/Urea nitrogen [Mass Ratio] in Serum or Plasma 24 [facility] Bicarbonate [Moles/volume] in Serum 27 mmol/L 22-29 [facility] Alanine aminotransferase [Enzymatic activity/volume] in Seru m or Plasma 101 U/L <41 H [facility] Anion gap 3 in Serum or Plasma 14 mmol/L 8-15 [facility] Glomerular filtration rate/1.73 sq M pre dicted among non-blacks [Volume Rate/Area] in Serum or Plasma by Creatinine-based formula (MDRD) >6 0 [facility] Glomerular filtration rate/1.73 sq M pre dicted among blacks [Volume Rate/Area] in Serum or Plasma by Creatinine-based formula (MDRD) >60 [facility] ID Date Data Source [id number] 10/21/2020 09:52:33 PM [facility] Name Value Range Interpretation Code Description Data Alisson rce(s) Supporting Document(s) Thyrotropin [Units/volume] in Serum or Plasma 2.800 u[IU]/mL 0.270-4. 200 [facility] ID Date Data Source [id number] 10/21/2020 10:05:53 PM [facility] Name Value Range Interpretation Code Description Data Alisson rce(s) Supporting Document(s) Valproate [Mass/volume] in Serum or Plasma 50-100 L [facility] Confirmed ID Date Data Source [id number] 10/21/2020 11:36:20 PM [facility] Name Value Range Interpretation Code Description Data Alisson rce(s) Supporting Document(s) Leukocytes [#/volume] in Blood by Automated count 9.9 10*3/uL 4-10 [facility] Erythrocytes [#/volume] in Blood by Automated count 5.37 10*6/uL 4.6- 6.1 [facility] Hemoglobin [Mass/volume] in Blood 13.8 g/dL 13.5-18 [facility] Hematocrit [Volume Fraction] of Blood by Automated count 43.3 % 4 1-53 [facility] Erythrocyte mean corpuscular volume [Entitic volume] by Auto mated count 80.5 fL 80-96 [facility] Erythrocyte mean corpuscular hemoglobin [Entitic mass] by Automated count 25.7 pg 27-33 [facility] Erythrocyte mean corpuscular hemoglobin concentration [Mass/volume] by Automated count 31.9 g/dL 32.0-36.0 [facility] E[facility]throcyte distribution width [Ratio] by Automated count 15.5 % 11.5-14.5 H [facility] Platelets [#/volume] in Blood by Automated count 121 10*3/uL 150-400 L [facility] Confirmed Differential cell count method - Blood [facility] Neutrophils/100 leukocytes in Blood by Automated count 56 % [facility] Lymphocytes/100 leukocytes in Blood by Automated count 29 % [facility] Monocytes/100 leukocytes in Blood by Automated count 11 % [facility] Eosinophils/100 leukocytes in Blood by Automated count 3 % [facility] Basophils/100 leukocytes in Blood by Automated count 1 % [facility] Neutrophils [#/volume] in Blood by Automated count 5.57 10*3/uL 1.8-7 .0 [facility] Lymphocytes [#/volume] in Blood by Automated count 2.86 10*3/uL 1.2-4 .0 [facility] Monocytes [#/volume] in Blood by Automated count 1.06 10*3/uL 0-0.8 H [facility] Eosinophils [#/volume] in Blood by Automated count 0.31 10*3/uL 0-0.5 [facility] Basophils [#/volume] in Blood by Automated count 0.07 10*3/uL 0-0.2 [facility] Nucleated erythrocytes/100 leukocytes [Ratio] in Blood by Automated count 0 /100{WBCs} 0-0 [facility] ID Date Data Source [id number] 10/21/2020 08:35:00 PM EST [facility] Name Value Range Interpretation Code Description Data Alisson rce(s) Supporting Document(s) SARS coronavirus 2 RdRp gene Negative N [facility] This lab was ordered by [facility] and reported by [facility] Clinical Pathology [facility]. ID Date Data Source [id number] 10/21/2020 08:47:04 PM [facility] Name Value Range Interpretation Code Description Data Alisson rce(s) Supporting Document(s) SARS coronavirus 2 RdRp gene Negative [facility] Test performed using the [employer] ID NOW C OVID-19 assay. This test is only for use under the Food and Drug Administration's Emergency Use Authorization. Additional information is available on the following FDA websites for health care providers and patients.https://www.fda.gov/media/511308/downloadhttps://www.fda.gov/media/1365 24/download Patients first test for [facility] 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 [facility] Patient has symptoms related to [facility] When did you start to experience these symptoms [Date and time] [Phen X] [facility] Patient was hospitalized because of this condition [facility] patient was admitted to ICU for [facility] Patient resides in a congregate care setting [facility] status [facility] ID Date Data Source [id number] 10/26/2020 12:38:36 PM [facility] Cmnt XXX-Imp : Specimen source n ot given.Microorganism XXX Cult : No growth 5 days Name Value Range Interpretation Code Description Data Alisson rce(s) Supporting Document(s) ID Date Data Source [id number] 10/26/2020 12:38:36 PM [facility] Cmnt XXX-Imp : R HAMicroorganism XXX Cult : No growth 5 days Name Value Range Interpretation Code Description Data Alisson rce(s) Supporting Document(s) ID Date Data Source [id number] 10/21/2020 11:13:00 AM EST [facility] ([facility]) Name Value Range Interpretation Code Description Data Alisson rce(s) Supporting Document(s) Natriuretic peptide.B prohormone N-Terminal [Mass/volu me] in Serum or Plasma 332 [facility] (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) Troponin Laboratory test result [facility] ([facility]) Thyroid Stimulating Hormone 2.070 [facility] ([facility]) ID Date Data Source [id number] 10/21/2020 11:13:00 AM EST [facility] ([facility] Name Value Range Interpretation Code Description Data Alisson rce(s) Supporting Document(s) Albumin [Mass/volume] in Serum or Plasma 3.0 [facility] ([facility]) Alanine aminotransferase [Enzymatic activity/volume] in Serum or Plasma 154 [facility] ([facility]) Calcium [Mass/volume] in Serum or Plasma 10.2 [facility] ([facility]) Chloride [Moles/volume] in Serum or Plasma 112 [facility] ([facility]) Carbon dioxide, total [Moles/volume] in Serum or Plasma 32 [facility] ([facility]) Potassium [Moles/volume] in Serum or Plasma 4.1 [facility] ([facility]) Alkaline phosphatase [Enzymatic activity/volume] in Serum or Plasma 1 24 [facility] ([facility]) Protein [Mass/volume] in Serum or Plasma 7.6 [facility] ([facility]) Sodium 150 [facility] ([facility]) Aspartate aminotransferase [Enzymatic activity/volume] in Se rum or Plasma 121 [facility] ([facility]) Urea nitrogen [Mass/volume] in Serum or Plasma 23 [facility] ([facility]) Glucose 104 83-110 [facility] ([facility]) Creatinine For GFR 0.84 [facility] ([facility]) ID Date Data Source [id number] 10/21/2020 11:13:00 AM EST [facility] ([facility]) Name Value Range Interpretation Code Description Data Alisson rce(s) Supporting Document(s) Platelets 148 172-450 [facility] White Blood Count 10.1 5.0-10.0 [facility] [facility]) Red Blood Count 5.94 4.00-5.40 [facility] ([facility]) Hematocrit 50.1 [facility] ([facility]) Hemoglobin 14.9 [facility] ([facility]) ID Date Data Source [id number] 10/21/2020 10:44:00 AM EST [facility] Name Value Range Interpretation Code Description Data Alisson rce(s) Supporting Document(s) SARS-CoV-2 (COVID 19) NEGATIVE - SARS-CoV-2 (COVID19) [facility] This lab was ordered by [facility] a nd reported by [facility]. ID Date Data Source [id number] 10/17/2020 11:11:00 AM EST [facility] ([facility]) Name Value Range Interpretation Code Description Data Alisson rce(s) Supporting Document(s) White Blood Count 7.3 5.0-10.0 [facility] ([facility] Red Blood Count 5.72 4.00-5.40 [facility] ([facility]) Platelets 14.8 172-450 [facility] ([facility] Hemoglobin 14.5 [facility] ([facility]) Hematocrit 47.3 [facility] ([facility]) ID Date Data Source [id number] 09/22/2020 12:00:00 AM EST [facility] Name Value Range Interpretation Code Description Data Alisson rce(s) Supporting Document(s) SARS-CoV2 Rapid Antigen Positive [facility] This lab was ordered by [facility] and reported by [facility]. ID Date Data Source [id number] 09/22/2020 12:00:00 AM EST [facility] Name Value Range Interpretation Code Description Data Alisson rce(s) Supporting Document(s) SARS-CoV2 Rapid Antigen [facility] This lab was ordered by [facility] and reported by [facility]. ID Date Data Source [id number] 09/18/2020 06:00:00 AM EST [facility] Name Value Range Interpretation Code Description Data Alisson rce(s) Supporting Document(s) SARS coronavirus 2 RNA [facility] This lab was ordered by [facility] and reported by [facility]. ID Date Data Source [id number] 09/17/2020 12:00:00 AM EST [facility] Name Value Range Interpretation Code Description Data Alisson rce(s) Supporting Document(s) SARS-CoV2 Rapid Antigen [facility] This lab was ordered by [facility] and reported by [facility]. ID Date Data Source [id number] 09/14/2020 01:47:00 PM EST [facility] Name Value Range Interpretation Code Description Data Alisson rce(s) Supporting Document(s) SARS coronavirus 2 RNA [facility] This lab was ordered by [facility] and reported by [facility]. ID Date Data Source [id number] 09/14/2020 12:00:00 AM EST [facility] Name Value Range Interpretation Code Description Data Alisson rce(s) Supporting Document(s) SARS-CoV2 Rapid Antigen [facility] This lab was ordered by [facility] and reported by [facility]. ID Date Data Source [id number] 09/05/2020 12:03:59 PM EST [facility] Name Value Range Interpretation Code Description Data Alisson rce(s) Supporting Document(s) Discharge Summary [facility] HVGMXn0wVpHLBhJl11/DULssOQMhn7ZuMHgyOPr0HPpnSKKoF8BqNMH7tH2bYWY6PNtHPrJjAtUpKgB1 [facility] [file] ICAgICAgICAgICAgICAgICAgICAgICAgICAgICAgICAgICAgICAgICAgICAgICAgICAgICAgICAgICAg ICA[facility]ICAgICAgICAgICAgICAgICAgICANCiAgICAgICAgICAgICAgICAgICAgICAgICAgICAgICAgICAg [facility]ICAgICAgICAgICAgICAgICAgICAgICAgICAgIC AgICAgICAgICAgICAgICAgICAgICAgICAgICAgICAgICANCiAgICAgICAgICAgICAgICAgICAgICAgIC AgICAgICAgICAgICAgICAgICAgICAgICAgICAgICAgICAgICAgICAgICAgICAgICAgICAgICAgICAgIC AgICAgICAgICAgICAgICANCiAgICAgICAgICAgICAg ICAgICAgICAgICAgICAgICAgICAgICAgICAgICAgICAgICAgICAgICAgICAgICAgICAgICAgICAgICAg ICAgICAgICAgICAgICAgICAgICAgICAgICANCiAgICAgICAgICAgICAgICAgICAgICAgICAgICAgICAg ICAgICAgICAgICAgICAgICAgICAgICAgICAgICAgIC AgICAgICAgICAgICAgICAgICAgICAgICAgICAgICAgICAgICANCiAgICAgICAgICAgICAgICAgICAgIC AgICAgICAgICAgICAgICAgICAgICAgICAgICAgICAgICAgICAgICAgICAgICAgICAgICAgICAgICAgIC AgICAgICAgICAgICAgICAgICANCiAgICAgICAgICAg ICAgICAgICAgICAgICAgICAgICAgICAgICAgICAgICAgICAgICAgICAgICAgICAgICAgICAgICAgICAg ICAgICAgICAgICAgICAgICAgICAgICAgICAgICANCiAgICAgICAgICAgICAgICAgICAgICAgICAgICAg ICAgICAgICAgICAgICAgICAgICAgICAgICAgICAgIC AgICAgICAgICAgICAgICAgICAgICAgICAgICAgICAgICAgICAgICANCiAgICAgICAgICAgICAgICAgIC AgICAgICAgICAgICAgICAgICAgICAgICAgICAgICAgICAgICAgICAgICAgICAgICAgICAgICAgICAgIC AgICAgICAgICAgICAgICAgICAgICANCiAgICAgICAg ICAgICAgICAgICAgICAgICAgICAgICAgICAgICAgICAgICAgICAgICAgICAgICAgICAgICAgICAgICAg [facility]ICAgICAgICAgICAgICAgICAgICAgICAgICAgICANCjw/uWZnN3tlkFJmlsS7K7klVr5QCd5VIE4y a7EhPJUzUXwxpgKdUniONjXeEEVaNfnFKmy0JMvbXN 8UjWBiG1DwO0MtUXfgSA7AERVvUXGqdNYcWUGwEJCnUcL9KFMnXTqqQX5GbZSfUNeyKKEyFQJzFbSfNU OoJHHnHLJuQVKqIIWPTVVbRUXgQbNuVARuYGCmJIjfQCPAEBL1NVVcLrXqILDwVLErUtWkUTUGJJ8SRa QaF3UnrG89CNDvLTh+Sc0OHD9hx5KnGIt3TsPfPJ2h kd1RQUrGOqTdX0FsnwZ5VJN8ZXBhQb8GJBWtUJDtcWD1UeKmKXTCTsAcX1FsmW35PBRKQx7+DQplbmRv UfmRKmN9LRAcz9EnGZu1SY2OVXDvRHz2jCUxQYiwW8gopoekSJZ6oU0qqcjaAvbxO30yiT4fOIljIPMd rGNoHHQFKRVguLUkEh81HoBiYjMoFCE1OMPfBZ9xGF yqPL3BHCS0KXhvLVVzENDnJ6xUPsNbHSRzFmOjdRbtFB6KGnZrF0AhkiMdtOG2VfKiOAUFDl3+DQplbm DqLtyHTkK3NMAmx8LhQAa0EB3VXQWbVLgmAM8BPYUcoD8fUTroNM7FMyB7GEZpYAKTVdCvK07omZAvIW s7P5TdMgYaEYNaVfrdABFgYWwjUuGmQMKuYjOeZHqc ID4+ID4+RJmfVG2HAGxmkmCqLAVsPp0WDNZxKCUoHY3jGKTgLINvS5V8oMfuQVWDCzVlV9pfwlyiPZ6n QTSnY283jAqadpXmELM2WECkKc2OXZYyDZB1THCqtUMbJEHiPBWQWSzcCR8DnCOvWSL0iI6fKIdwPZCp BLOoB2aHPwBskJkuBC80yWtqxqOtaVZdFDd+Pg0KZW 7tq8QtMAd5jjWvSRmoERW7EGbmATUvEKAyTNIrFJO6POI4WGKWSrOrDVOdPOSzAMeeUKLzLUZajc3XUU LlQMP8GVUiUGCxXBXxEYItRNkhHWIsBIwbTFK9NMLzYLEtPF8IAgGyLDGjATNhCVmfODCxIUGhwn8YOU YmWBEfBbL7SYKbQJDvSLGxYJtvMODcECYcNCNxSRTw DSGsTZ6ELuVhJGIcTGo2OnqnIPXxYOMnnr7LWNNmWURoTLl5UpTyVUPgNCUcOZlzOORyPAHeNzM4HKPj NCNgOE7PSjYyTGIgLPS1WOQtZDDxTKQbrb6WUPIhHEXdJTx0OLGhNLGhRHXzVDbxBTDxXYQ2EVPfFUHr NBVsSC9CXvCuTVIdUHx2XhekGIYlXTExqw6OWMDkUX OjICg3NfRgAZMbHYWvUYgxUICjNHUgKBMvINQtYWLxHR7TEgAxIDRzDcEaJqljKBCwVTWscj9FHVDuMU DuUdq1HQWhZHQyAQBkFCpbPSUiPKF3DWIhUGMlKLAhBP2OTdBcRZVjBotbWlOqVSAtWDQzdc5EBKTgTF SbTRQmLoDzMREfLDObGFpnGAWuLWQwUiF9WYXyZSDg TY0GYpOxREYwVkX6GRYkUMMgFCXopi2XDDQvTERtOOJzPcFjHBAjYRPlYBbeFWUnUQS9CkK5IDIjEWWe KR4RHvFvNQTfDoYeSenfAWNtUHXgiv4AGPHoZXNxTaJ4FcDtPNReGLBhHSgeHARvEHT8BAU7FPJeQLSg VR2GZmLxQZHuKkt9CHtkPOPvIIUhff6VKTZjAZMvUm eaNJOzUHHyWLByWIpkEISsONA2HQQ9ZYLrTUTlSK1SHgNvFODpVha9DugiACDiIGTlab7USZZiQFTcTR M3DEOdQOQkTUVdYHwlUDXuXXV8TlE6VQAxKZLxSX0LRpWtYPQiNESpQRbsCHEsJOEclo8RDYHqLUM9MN JkYLDfYJPkLYJiORxyMLXxNWJqJKe5AJRoLGItVF2Z NxFwOBQgKRG9KbEdNIRjJZSxbh4RPQWaGKA2VlH7EEGgAVNbZNUtKQqsPZJzWHAmEEk5PXJvVJXzMM8N HdQlVNOvBGB1PsZeXKWpMXRipp3XRRBnAGQ4Fcw9NmEtTITrOSEuJVbaYBRnUGgrPDj2AYXjKKVnYO0D NiCjOVDmSkS4NEyxQVGdVARwgk5TMRQmOSU2DIS3Zi KwEJWjSDMuJEkwTEGoLAtpQFi2DMRuTSRsHE5IUgSwJKInVuZoXfZlRBImWAGssz2ZOHAdBNF1AqG0EI HsCVPsIQFkVVdpMXWpVWy1Rqg5TWJxWOFeWJ8MFjBhNUJcGuW1CBWaRNAaSLOfdl9JEFBzKXV2Skb2TR RqICYcIRRzFRsaOTJtGKt0SFp6HZPmOWNxBR7QAjLt CQCcVjs2EZSbDASkIRAztx9LIQYvUDA5WVYwYXIvJGCrSJQhMCawKYNeZKu5TkE1EDOcBZYuDU2POcEw NIExOle7HDawOYKyUMPkge9STHTfUOM6KQC5HGXwDVKmQBCgXRkvRTVtTQutBkX7LSJpGBWdOP6QMaZo THBaVUK3WLMbCODnRTVntu0YkVBotTsbdm1BCJzGTo 6AnHbfHKO2GOqeSu2coIL3SGLvSTBTGq3YyyAaOKZvMFFZJLkdXFLqLCUqFYO2EtZ2NeKcLVXxYgx3GG RpFNOzPYt8W8MiE1KfQaB4TqM1CkR0RelxCXAcDKThISj0HjPiXPCfBFilVtImTwV+HO6jNZr+Pg0Kc3 ErqpA5auVfGPu5DKb1Vu0XBKOIA8DDKx== ID Date Data Source [id number] 09/08/2020 11:06:07 AM [facility] Name Value Range Interpretation Code Description Data Alisson rce(s) Supporting Document(s) Oxcarbazepine [Mass/volume] in Serum or Plasma 27 ug/mL 10-35 [facility] (NOTE)This test was developed and its pe rformance characteristicsdetermined by [facility]. It has not been cleared or approvedby the Food and Drug Administration. Detection Limit = 1Performed At: [facility] [address] [id number] Sanjai MD Ph:[phone] ID Date Data Source [id number] 09/04/2020 03:47:31 PM [facility] Name Value Range Interpretation Code Description Data Alisson rce(s) Supporting Document(s) Bicarbonate [Moles/volume] in Serum 28 mmol/L 22-29 [facility] Chloride [Moles/volume] in Serum or Plasma 98 mmol/L 98-107 [facility] Creatinine [Mass/volume] in Serum or Plasma 0.56 mg/dL 0.70-1.20 L [facility] Glucose [Mass/volume] in Serum or Plasma 91 mg/dL 70-140 [facility] Potassium [Moles/volume] in Serum or Plasma 4.3 mmol/L 3.4-5.1 [facility] Sodium [Moles/volume] in Serum or Plasma 134 mmol/L 136-145 L [facility] Urea nitrogen [Mass/volume] in Serum or Plasma 10 mg/dL 6-20 [facility] Anion gap 3 in Serum or Plasma 8 mmol/L 8-15 [facility] Osmolality of Serum or Plasma by calculation 276 mosm/kg 275-300 [facility] Creatinine/Urea nitrogen [Mass Ratio] in Serum or Plasma 18 [facility] Calcium [Mass/volume] in Serum or Plasma 9.9 mg/dL 8.6-10.0 [facility] Glomerular filtration rate/1.73 sq M pre dicted among non-blacks [Volume Rate/Area] in Serum or Plasma by Creatinine-based formula (MDRD) >6 0 [facility] Glomerular filtration rate/1.73 sq M pre dicted among blacks [Volume Rate/Area] in Serum or Plasma by Creatinine-based formula (MDRD) >60 [facility] ID Date Data Source [id number] 09/04/2020 03:47:31 PM [facility] Name Value Range Interpretation Code Description Data Alisson rce(s) Supporting Document(s) Magnesium [Mass/volume] in Serum or Plasma 2.0 mg/dL 1.6-2.6 [facility] ID Date Data Source [id number] 09/04/2020 04:11:25 PM [facility] Name Value Range Interpretation Code Description Data Alisson rce(s) Supporting Document(s) Leukocytes [#/volume] in Blood by Automated count 8.8 10*3/uL 4-10 [facility] Erythrocytes [#/volume] in Blood by Automated count 4.99 10*6/uL 4.6- 6.1 [facility] Hemoglobin [Mass/volume] in Blood 12.8 g/dL 13.5-18 L [facility] Hematocrit [Volume Fraction] of Blood by Automated count 40.6 % 4 1-53 [facility] Erythrocyte mean corpuscular volume [Entitic volume] by Auto mated count 81.5 fL 80-96 [facility] Erythrocyte mean corpuscular hemoglobin [Entitic mass] by Automated count 25.7 pg 27-33 L [facility] Erythrocyte mean corpuscular hemoglobin concentration [Mass/volume] by Automated count 31.5 g/dL [facility].0[facility] distribution width [Ratio] by Automated count 15.8 % 11.5-14.5 H [facility] Platelets [#/volume] in Blood by Automated count 166 10*3/uL 150-400 [facility] Confirmed ID Date Data Source [id number] 09/04/2020 03:27:31 PM [facility] Name Value Range Interpretation Code Description Data Alisson rce(s) Supporting Document(s) Ammonia [Moles/volume] in Plasma 25 umol/L 16-60 [facility] ID Date Data Source [id number] 09/04/2020 12:06:00 PM EST [facility] Name Value Range Interpretation Code Description Data Alisson rce(s) Supporting Document(s) SARS-CoV-2 RNA [facility] This lab was ordered by [facility] and reported by [facility]. ID Date Data Source [id number] 09/04/2020 02:51:36 PM EST [facility] Name Value Range Interpretation Code Description Data Alisson rce(s) Supporting Document(s) Specimen source [Identifier] of Unspecified specimen [facility] SARS-CoV-2 RNA 2019 nCoV Real-Time RT-PCR: NOT DETECTED [facility] Assay Performed [facility] Patients first test for 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 Patient resides in a congregate care setting [facility] status [facility] ID Date Data Source [id number] 09/04/2020 06:54:05 AM [facility] Name Value Range Interpretation Code Description Data Alisson rce(s) Supporting Document(s) Bicarbonate [Moles/volume] in Serum 28 mmol/L 22-29 [facility] Chloride [Moles/volume] in Serum or Plasma 98 mmol/L 98-107 [facility] Creatinine [Mass/volume] in Serum or Plasma 0.58 mg/dL 0.70-1.20 L [facility] Glucose [Mass/volume] in Serum or Plasma 88 mg/dL 70-140 [facility] Potassium [Moles/volume] in Serum or Plasma 3.7 mmol/L 3.4-5.1 [facility] Sodium [Moles/volume] in Serum or Plasma 136 mmol/L 136-145 [facility] Urea nitrogen [Mass/volume] in Serum or Plasma 8 mg/dL 6-20 [facility] Anion gap 3 in Serum or Plasma 10 mmol/L 8-15 [facility] Osmolality of Serum or Plasma by calculation 280 mosm/kg 275-300 [facility] Creatinine/Urea nitrogen [Mass Ratio] in Serum or Plasma 14 [facility] Calcium [Mass/volume] in Serum or Plasma 9.5 mg/dL 8.6-10.0 [facility] Glomerular filtration rate/1.73 sq M pre dicted among non-blacks [Volume Rate/Area] in Serum or Plasma by Creatinine-based formula (MDRD) >6 0 [facility] Glomerular filtration rate/1.73 sq M pre dicted among blacks [Volume Rate/Area] in Serum or Plasma by Creatinine-based formula (MDRD) >60 [facility] ID Date Data Source [id number] 09/04/2020 08:29:58 AM [facility] Name Value Range Interpretation Code Description Data Alisson rce(s) Supporting Document(s) Leukocytes [#/volume] in Blood by Automated count 8.5 10*3/uL 4-10 [facility] Erythrocytes [#/volume] in Blood by Automated count 5.03 10*6/uL 4.6- 6.1 [facility] Hemoglobin [Mass/volume] in Blood 13.4 g/dL 13.5-18 L [facility] Hematocrit [Volume Fraction] of Blood by Automated count 40.8 % 4 1-53 L [facility] Erythrocyte mean corpuscular volume [Entitic volume] by Auto mated count 81.3 fL 80-96 [facility] Erythrocyte mean corpuscular hemoglobin [Entitic mass] by Automated count 26.6 pg 27-33 L [facility] Erythrocyte mean corpuscular hemoglobin concentration [Mass/volume] by Automated count 32.7 g/dL 32.0-36.0 [facility] E[facility]throcyte distribution width [Ratio] by Automated count 15.9 % 11.5-14.5 H [facility] Platelets [#/volume] in Blood by Automated count 175 10*3/uL 150-400 [facility] Confirmed ID Date Data Source [id number] 09/02/2020 01:16:22 PM [facility] Name Value Range Interpretation Code Description Data Alisson rce(s) Supporting Document(s) [facility] IIGJOu5hSaRTYiOh63/LWGgpQMQbr5QeIInxHGe8DTszBEPjA2EyGNI3wO0aEAF0FCjRYeFbTpIoMzWw [facility] [file] ICAgICAgICAgICAgICAgICAgICAgICAgICAgICAgIC AgICAgICAgICAgICAgICAgICANCiAgICAgICAgICAgICAgICAgICAgICAgICAgICAgICAgICAgICAgIC AgICAgICAgICAgICAgICAgICAgICAgICAgICAgICAgICAgICAgICAgICAgICAgICAgICAgICAgICAgIC ANCiAgICAgICAgICAgICAgICAgICAgICAgICAgICAg ICAgICAgICAgICAgICAgICAgICAgICAgICAgICAgICAgICAgICAgICAgICAgICAgICAgICAgICAgICAg ICAgICAgICAgICANCiAgICAgICAgICAgICAgICAgICAgICAgICAgICAgICAgICAgICAgICAgICAgICAg ICAgICAgICAgICAgICAgICAgICAgICAgICAgICAgIC AgICAgICAgICAgICAgICAgICAgICANCiAgICAgICAgICAgICAgICAgICAgICAgICAgICAgICAgICAgIC AgICAgICAgICAgICAgICAgICAgICAgICAgICAgICAgICAgICAgICAgICAgICAgICAgICAgICAgICAgIC AgICANCiAgICAgICAgICAgICAgICAgICAgICAgICAg ICAgICAgICAgICAgICAgICAgICAgICAgICAgICAgICAgICAgICAgICAgICAgICAgICAgICAgICAgICAg ICAgICAgICAgICAgICANCiAgICAgICAgICAgICAgICAgICAgICAgICAgICAgICAgICAgICAgICAgICAg ICAgICAgICAgICAgICAgICAgICAgICAgICAgICAgIC AgICAgICAgICAgICAgICAgICAgICAgICANCiAgICAgICAgICAgICAgICAgICAgICAgICAgICAgICAgIC AgICAgICAgICAgICAgICAgICAgICAgICAgICAgICAgICAgICAgICAgICAgICAgICAgICAgICAgICAgIC AgICAgICANCiAgICAgICAgICAgICAgICAgICAgICAg ICAgICAgICAgICAgICAgICAgICAgICAgICAgICAgICAgICAgICAgICAgICAgICAgICAgICAgICAgICAg ICAgICAgICAgICAgICAgICANCiAgICAgICAgICAgICAgICAgICAgICAgICAgICAgICAgICAgICAgICAg ICAgICAgICAgICAgICAgICAgICAgICAgICAgICAgIC AgICAgICAgICAgICAgICAgICAgICAgICAgICANCjw/lDDfJ5gdzEUsrfV8N5zyVu2PNi3AQD5pm8NfIS SgPBwqxzEfBtnBIhMfQWDiWbfSNgq6ESfpKR6KpSWuR4QvY3PyBXfxQH9HOPYkVSBfhKUsFLLlKDZqGt M8XLIjHIjfMA6UiYNgNEyfHLIyDTTrFcTnTZMnZZEz QZKtZTZvPSZWMCTnHMPfZdGkCMyiVZ5Eb2FdiMK6GLz+Gr7WFS5lf8UzQUxnNDHvHZ0pck9VKFxZYsOp T0PszvK7MDKpKFYfOk5NLJWiSVLgxKXmDTDnAIIUUvJnC4OtpM28SQBINm7+DQplbmRvYmoNCjMxIDAg l6QvPLr2CB3JZIEsIRm5pKZeO77jo6JbgRYgVmwcVk vtxD5nBWIeVPWFDNIbq2tenovbWOWaDJXdXZVpMR2gQPCqYZZmCcF8WAMKUU8DAFGeGGDfyPEqNAYxGZ EFEE7HKOpuDKV8ZRKmeiHsnRZyJOkmPY5DIAVjjzHsQgPyPPFDDIg+Fl1RUP8us0FlSUdyLmJkEA4tew 8LBCmVCeDzN9C9pFAvQ2E7YMsnNw6CWGUlJGMlAszl BGKDEHhdXA4LQK2uqyR2QS8AmOPoWVAqLCSnuEWtKJe9A39qzFOeJCnrSX0NNLL+Patricia+Zr6YLQZbLIWi YCTgKgSwRZXJInWxZ7PlX3AMv1AmQ2QoRZ97iQmevfPuCBlkGH2PMY2oKHDpKAROJM6QeHBwhM0tihJi YTRuNTZXPmGmL08ojIUpKNDzZHU9UHUrVj8QTMTzQ1 VjcvZhiTscosEgNNSkDMVWMA2TBSwdazBbdVEseFzdLY30bOtxST8LKy9RIqTuIJ4eqb3HiOVtQe0TBB WzYf0IIXRwPSQvREGrCUF6VUAqWpIrRBveYBTwMNLwCOX3JLDySIZfSF0YGsUnSIPqIaRoJtCxFLOrKL Uisp3AMHAhNENmSuj8LbYtFWAgHHBmHPamOJZlJYHs PPN8ZYSwHONqIL8ZSyDnQGEeXPO8PuTgJRIaLXHmlm9IIJUrNANoOmv0OqOtKEYgEROjFUuqJJLtJPN8 NBG2DLQtOKWkSV3OMeMgYTUnYRTjTYkdNRCvSVLdda3PDGTrPJIpBTv8ZRMzWXPcRFSnNMhtTJBaIHO5 ILGzXRFfWSJxAE9ENkUjIPZkDZK0SiHwUCXfXDUwha 9ICYKxBWQaEkK3BnWfQZXvCIPpNTmfCXBuWUN1LXE2DTPqDUMaRQ8NWwPfSHSvJGD9MxGpFEYtXYVwzh 1MZUUfNKDbPjxmNdSqXIGkWWFpRKuoDDToZSO1WQZxYRKmXZXkXE6FWsApSHOxAMwsLRQgSOMnOKKsvx 8MLZBpKOKeANJ8KjXsNLZoUZFtMIjwHZGcGWA8Ica5 IDRwSDIyNQ1PRzKhCOIbQJp0IpYxXBObFQBcpc0RVQKqMUZoSHVgLhHgTGBjSCBmIBwcOCZjLNG1FzO8 SACbCQFxJZ3FRbVqTZJkFDs8EBXyVGMaKNTrcf0MHSYeQFXzGPT7MyYuKTEaSXIoTTjpLEJyYZPjAAE8 DKNkMPWtBN0JTnEtXTWtWhL6OEBlGYZcYJFtbe2ZMO MgZJQkQYp8BpJiGGUrXAJiNNzaBQCvYZOdUHe2TANeFDQgEA4ADrCvBFBkZyN6TUXyICOyPCGrci3UWI CnSXEtVmw1ZVZsKSYiWRXhHTgtHTPiOZZ2FQGkXBEvCIPoUF9CSjXfDZPhWoXxDRqhASDiDGCoax0QvT CdpSszyj9IOPyPRo7ZcNtmCPKaRJawPf4qsYCnYmEy EDYVMo7ZbyWuPQEzQHGXQOurXSGxWPj7XaU0OJTgLVX4JzI9DEP3HuebDoSiPrWyYJVvUVTtXwQ6WkO8 GFe7NfH5RYM9TmQkLtKqQVJ7UEPsUIZ3B5CoAYB+SA2vOUp+Tb9Ta7AvmxQ3juIeJCftQVW1Bo1ZUBYR T0YNCg== ID Date Data Source [id number] 08/29/2020 08:06:51 AM [facility] Name Value Range Interpretation Code Description Data Alisson rce(s) Supporting Document(s) Bicarbonate [Moles/volume] in Serum 28 mmol/L 22-29 [facility] Chloride [Moles/volume] in Serum or Plasma 95 mmol/L 98-107 L [facility] Creatinine [Mass/volume] in Serum or Plasma 0.63 mg/dL 0.70-1.20 L [facility] Glucose [Mass/volume] in Serum or Plasma 72 mg/dL 70-140 [facility] Potassium [Moles/volume] in Serum or Plasma 3.7 mmol/L 3.4-5.1 [facility] Sodium [Moles/volume] in Serum or Plasma 134 mmol/L 136-145 L [facility] Urea nitrogen [Mass/volume] in Serum or Plasma 10 mg/dL 6-20 [facility] Anion gap 3 in Serum or Plasma 11 mmol/L 8-15 [facility] Osmolality of Serum or Plasma by calculation 276 mosm/kg 275-300 [facility] Creatinine/Urea nitrogen [Mass Ratio] in Serum or Plasma 15 [facility] Calcium [Mass/volume] in Serum or Plasma 10.1 mg/dL 8.6-10.0 H [facility] Glomerular filtration rate/1.73 sq M pre dicted among non-blacks [Volume Rate/Area] in Serum or Plasma by Creatinine-based formula (MDRD) >6 0 [facility] Glomerular filtration rate/1.73 sq M pre dicted among blacks [Volume Rate/Area] in Serum or Plasma by Creatinine-based formula (MDRD) >60 [facility] ID Date Data Source [id number] 08/29/2020 08:06:51 AM [facility] Name Value Range Interpretation Code Description Data Alisson rce(s) Supporting Document(s) Magnesium [Mass/volume] in Serum or Plasma 1.9 mg/dL 1.6-2.6 [facility] ID Date Data Source [id number] 08/29/2020 09:23:27 AM [facility] Name Value Range Interpretation Code Description Data Alisson rce(s) Supporting Document(s) Leukocytes [#/volume] in Blood by Automated count 7.9 10*3/uL 4-10 [facility] Erythrocytes [#/volume] in Blood by Automated count 4.71 10*6/uL 4.6- 6.1 [facility] Hemoglobin [Mass/volume] in Blood 12.4 g/dL 13.5-18 L [facility] Hematocrit [Volume Fraction] of Blood by Automated count 38.9 % 4 1-53 L [facility] Erythrocyte mean corpuscular volume [Entitic volume] by Auto mated count 82.5 fL 80-96 [facility] Erythrocyte mean corpuscular hemoglobin [Entitic mass] by Automated count 26.3 pg 27-33 L [facility] Erythrocyte mean corpuscular hemoglobin concentration [Mass/volume] by Automated count 31.9 g/dL 32.0-[facility].0 [facility] width [Ratio] by Automated count 16.1 % 11.5-14.5 H [facility] Platelets [#/volume] in Blood by Automated count 246 10*3/uL 150-400 [facility] Confirmed Differential cell count method - Blood [facility] Neutrophils/100 leukocytes in Blood by Automated count 41 % [facility] Lymphocytes/100 leukocytes in Blood by Automated count 37 % [facility] Monocytes/100 leukocytes in Blood by Automated count 18 % [facility] Eosinophils/100 leukocytes in Blood by Automated count 1 % [facility] Basophils/100 leukocytes in Blood by Automated count 1 % [facility] Neutrophils [#/volume] in Blood by Automated count 3.28 10*3/uL 1.8-7 .0 [facility] Lymphocytes [#/volume] in Blood by Automated count 2.91 10*3/uL 1.2-4 .0 [facility] Monocytes [#/volume] in Blood by Automated count 1.41 10*3/uL 0-0.8 H [facility] Eosinophils [#/volume] in Blood by Automated count 0.07 10*3/uL 0-0.5 [facility] Basophils [#/volume] in Blood by Automated count 0.07 10*3/uL 0-0.2 [facility] Variant lymphocytes/100 leukocytes in Blood by Manual count 1 % [facility] Myelocytes/100 leukocytes in Blood by Manual count 1 % [facility] Lymphocytes [#/volume] in Blood 0.07 10*3/uL 0 H [facility] Myelocytes [#/volume] in Blood by Manual count 0.07 10*3/uL 0-0 H [facility] ID Date Data Source [id number] 08/25/2020 07:54:57 AM [facility] Hospital Name Value Range Interpretation Code Description Data Alisson rce(s) Supporting Document(s) Leukocytes [#/volume] in Blood by Automated count 7.1 10*3/uL 4-10 [facility] Erythrocytes [#/volume] in Blood by Automated count 5.02 10*6/uL 4.6- 6.1 [facility] Hemoglobin [Mass/volume] in Blood 13.3 g/dL 13.5-18 L [facility] Hematocrit [Volume Fraction] of Blood by Automated count 41.8 % 4 1-53 [facility] Erythrocyte mean corpuscular volume [Entitic volume] by Auto mated count 83.3 fL 80-96 [facility] Erythrocyte mean corpuscular hemoglobin [Entitic mass] by Automated count 26.6 pg 27-33 L [facility] Erythrocyte mean corpuscular hemoglobin concentration [Mass/volume] by Automated count 31.9 g/dL 32.0-36.0 [facility]th[facility] width [Ratio] by Automated count 16.7 % 11.5-14.5 H [facility] Platelets [#/volume] in Blood by Automated count 252 10*3/uL 150-400 [facility] Differential cell count method - Blood [facility] Neutrophils/100 leukocytes in Blood by Automated count 41 % [facility] Lymphocytes/100 leukocytes in Blood by Automated count 41 % [facility] Monocytes/100 leukocytes in Blood by Automated count 15 % [facility] Eosinophils/100 leukocytes in Blood by Automated count 2 % [facility] Basophils/100 leukocytes in Blood by Automated count 1 % [facility] Neutrophils [#/volume] in Blood by Automated count 2.94 10*3/uL 1.8-7 .0 [facility] Lymphocytes [#/volume] in Blood by Automated count 2.90 10*3/uL 1.2-4 .0 [facility] Monocytes [#/volume] in Blood by Automated count 1.07 10*3/uL 0-0.8 H [facility] Eosinophils [#/volume] in Blood by Automated count 0.17 10*3/uL 0-0.5 [facility] Basophils [#/volume] in Blood by Automated count 0.04 10*3/uL 0-0.2 [facility] Nucleated erythrocytes/100 leukocytes [Ratio] in Blood by Automated count 0 /100{WBCs} 0-0 [facility] ID Date Data Source [id number] 08/25/2020 08:15:09 AM [facility] Name Value Range Interpretation Code Description Data Alisson rce(s) Supporting Document(s) Bicarbonate [Moles/volume] in Serum 27 mmol/L 22-29 [facility] Chloride [Moles/volume] in Serum or Plasma 99 mmol/L 98-107 [facility] Creatinine [Mass/volume] in Serum or Plasma 0.59 mg/dL 0.70-1.20 [facility] Glucose [Mass/volume] in Serum or Plasma 83 mg/dL 70-140 [facility] Potassium [Moles/volume] in Serum or Plasma 3.8 mmol/L 3.4-5.1 [facility] Sodium [Moles/volume] in Serum or Plasma 139 mmol/L 136-145 [facility] Urea nitrogen [Mass/volume] in Serum or Plasma 11 mg/dL 6-20 [facility] Anion gap 3 in Serum or Plasma 13 mmol/L 8-15 [facility] Osmolality of Serum or Plasma by calculation 287 mosm/kg 275-300 [facility] Creatinine/Urea nitrogen [Mass Ratio] in Serum or Plasma 19 [facility] Calcium [Mass/volume] in Serum or Plasma 9.5 mg/dL 8.6-10.0 [facility] Glomerular filtration rate/1.73 sq M pre dicted among non-blacks [Volume Rate/Area] in Serum or Plasma by Creatinine-based formula (MDRD) >6 0 [facility] Glomerular filtration rate/1.73 sq M pre dicted among blacks [Volume Rate/Area] in Serum or Plasma by Creatinine-based formula (MDRD) >60 [facility] ID Date Data Source [id number] 08/25/2020 08:15:09 AM [facility] Name Value Range Interpretation Code Description Data Alisson rce(s) Supporting Document(s) Magnesium [Mass/volume] in Serum or Plasma 1.9 mg/dL 1.6-2.6 [facility] ID Date Data Source [id number] 08/27/2020 06:07:20 AM [facility] Name Value Range Interpretation Code Description Data Alisson rce(s) Supporting Document(s) Oxcarbazepine [Mass/volume] in Serum or Plasma 21 ug/mL 10-35 [facility] (NOTE)This test was developed and its pe rformance characteristicsdetermined by [facility]. It has not been cleared or approvedby the Food and Drug Administration. Detection Limit = 1Performed At: [facility] [id number] [place], [place] [id number] Ibarra MD Ph:[phone] ID Date Data Source [id number] 08/24/2020 05:40:03 AM [facility] Name Value Range Interpretation Code Description Data Alisson rce(s) Supporting Document(s) Ammonia [Moles/volume] in Plasma 57 umol/L 16-60 [facility] ID Date Data Source [id number] 08/26/2020 04:06:08 AM [facility] Name Value Range Interpretation Code Description Data Alisson rce(s) Supporting Document(s) Oxcarbazepine [Mass/volume] in Serum or Plasma 22 ug/mL 10-35 [facility] (NOTE)This test was developed and its pe rformance characteristicsdetermined by [facility]. It has not been cleared or approvedby the Food and Drug Administration. Detection Limit = 1Performed At: [facility] [address] [place], [place] [id number] Sanjai MD Ph:[phone] ID Date Data Source [id number] 08/23/2020 06:42:57 AM [facility] Name Value Range Interpretation Code Description Data Alisson rce(s) Supporting Document(s) Ammonia [Moles/volume] in Plasma 52 umol/L 60 [facility] ID Date Data Source [id number] 08/22/2020 10:18:41 AM [facility] CT HEAD WITHOUT CONTRAST [id number] RESU LTInterpreted by:Ernesto Bruce MDCLINICAL INDICATION: 54-year-old male presenting for follow-up radiologic evaluation of hygroma.TECHNIQUE: Contiguous axial CT images of the head were acquired from the base of the skull to the vertex without intravenous contrast administration. Images were viewed in brain, subdural and bone windows. Automated dose lowering techniques and/or adjustment according to patient size were utilized for this exam.COMPARISON: CT head dated 08/19/2020.FINDINGS: Again seen is a left frontal approach 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 shunt catheter with the distal tip terminating in the frontal horn of the left lateral ventricle, unchanged in position from the prior examination. There is grossly unchanged size of the ventricular system as compared to prior scan. The patient is status post right frontoparietal craniectomy and cranioplasty with stable appearing underlying postoperative changes. The underlying postoperative air- fluid collection measures approximately 12 mm in maximal thickness (previously 12 mm maximal thickness). There is a chronic hypodense left frontal convexity subcalvarial collection which shows minimal interval decrease in size, now measuring 25 mm in maximal thickness (previously measuring 26 mm) There is a slight associated rightward midline shift measuring approximately 4 mm at the level of the foramen of Monro, not significantly changed from the prior examination. The basal cisterns remain patent.The left mastoid air cells are partially opacified. The remainder of the visualized paranasal sinuses and masto id cells are well-aerated.IMPRESSION: 1. Minimal interval decrease in size of the left-sided hygroma with stable rightward midline shift.2. Stable appearance of the postoperative air-fluid collection along the right cranial convexity.3. Stable left frontal approach shunt catheter unchanged in position with grossly stable size of the ventricular system.4. Other findings as noted above. This document has been electronically signed by MARILYN Bruce on 08/22/2020 10:16 AM Name Value Range Interpretation Code Description Data Alisson rce(s) Supporting Document(s) ID Date Data Source [id number] 08/22/2020 09:45:07 AM [facility] Name Value Range Interpretation Code Description Data Alisson rce(s) Supporting Document(s) [facility] MFMFEm4bCpRMRqFol5JqQoCdFKYiXP1ezny1Q7N4yPVnV8JiiUQwn8wgE6RyZ8DwVHBaETDOJI5BxCTd jb2 [file] C5ovCgtOEIzx3GteZZjudMexEF5S5fOBAFsOwhWKGtIq+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+Q6mrjT//19viq9oc18//49/+/GPjz//3 zwf4/PfnP7+F//uf//ivf/7nf/1aa5des/71f/3zn/71j31+LdBKz3zuIq/jose+4///U//zNG+WP++eff [file] 37/6wcT0+1c/4K8+vf3hz//13V//3797+rj8qc/3l7 4YlmESQ1i2g/3rp2/f/uN/vZ79D3/58/go47owtbc1nDKL/evnH/3r59/zS+9Lgb/ykM79mt+u7g/oeS wuN2ifia//FEqCuhM6wVi//1QH+9UPP/3w89vv/vd3f/u1swR7j8l/+JMPX/3uRiIu9y549y0IS//9n7 736/Dndns2Y860fnyu+tXv/tfvf/e3P/zuz9/7+1PT w/7w5+//fXUm++N///u/farw01/+8qcvrjsa+ns/Oe/7i7/8/hw3L3butUFK7RE/f/f7//loan assistant/z+9YRf /ENW19nF1yv93uIuik/3zh0Sv//fb98e5n836iTtA7/9/PYnbuuIox9Y35mCoK/63f/47k3e/vKfb/xW 3wXhkVnsoa0sDk6eJu/5shcd0eDERrwr6I4q552+fH y68bnpv7828IaUC1+437Oj000Ae40+/uW2mQOIIzOyVQF5nzMuvCtqccZsWwxHRLvvTVEwIgd0WS3FrR DrISCiS3C8UIXige7qBDPkHNKltUShWiDaIOUYVJ8GoSGkZE1ROYr8RSMsQWIeVuJoTPQqhtA7OJPaYB SyLAZvC7KthiVjsASiEEBeQy6+TC5kj9PlUvPwWAZb Qbb8CE3QcGBxLI4PoPPibQ8ntzRpL767ctWhKBYxWcvcu2KxJWszEMEDLF9ZSCA9RJS1JIQbUp4+ZW5k g9BwTtInEZIoQrq3VX3HzMNfl7CdND2OS7LfGGZtISEOARM5n7ZsEXNfacrqzzphM4LqBIT0nM2zVIC6 EOQiXYqoYAZtSIAlLAK3WRMjWMzdUAKwHVPqHCCdXL UeJVw6zYPdYH2WE9HgKQAjOQLLFVZnmjLqSt8aSBBIKxFCFdpUCdhtUu1UAE6dCft8KfQnFDsyX8T8Um qeC9OxNE4KT7LcBNEmXCZOSTKqyuHuSY0CyiIdcR0kYKvDFVYTKDfVVXldMzD3k71rmeRRGHOjUDHoAG ppQDRfLLLeONRdRGJrJDQjTKHsXHDxIX9KL8DdKIWi JGZJKYW6f6QtVZKequvzdpldVu9hohFuCcl+MtgrABGzh3LbHJjzT1M1mEPpZ5DrT1SmGI5IzDVoFSvq AMOoZGPgJRPdW921uzOxRG3+PK2kl7XyIrooHICYQRWfRQWuCEVnBVO6KtRpKTXkEALzHGZcKaW1MzDm LnZVMRWdRDB6OJlmSWZbBXJjPKQxSYtgEXWgMQM5Ck agYDMjZJThRE6lXnYtJYRwAhe6CQOvFKBvUVLamxXGCFZmFGRkUVWyBHS6CLUcZIZpDTjbWXToTXNpEE H8RFHkLGXxKF2qZeNjJVVrSCTtWqyyGVPxBUQmtfXJMWLlOYVaXVD8ChEoFXUhOQWgKGaxHOMlDYYqCv d5VVEyFAInLH4rYlXpIPNvOGF8RLufZXNoVXCxgdYZ SWYuWVCcNWAnKlRbJUNiWHJxTPhhPXEePRWrMsMuNCJkXVIzKC0oVrTfFOFwCEM8XHGgPYLrGSByfgWX ZCJmLQSpSWr5GXEiJVVpDHVtLCcwMGVoDRLyBCH0HNZaMNDhHC8eItCbOZNtGVIgPEZjMFYcRVIqdfZT NBFvFDDdCRB5LPWrTFAyPVIpUSedMSVeKUEeObo0HO QvAXFyTU1dLgEjDXVcOWT1SRXiNDByDOPpdfBZQGYpZIO4QPZ2IlBxKTSrATZiNCgmAHRbTXQhTvS8OK UsBAElMZ9yXxKfTZWmPQB7LwNdVUViENShquGCCFCdHBUwOBY3LhIfNABpALFbUIbqRUWaOSKwSZJoAO V9MRE1ILGkFqPmZPopZYDBHHuTS2PiixEaTbDTW8ng Rv7kUrJnSXJIQ5Nsi2PjYWSoKEHSXm8+TuA3UQJ9nWJiJuq5HAw3HBkqYJZUDu== ID Date Data Source [id number] 08/22/2020 09:44:41 AM [facility] Name Value Range Interpretation Code Description Data Alisson rce(s) Supporting Document(s) [facility] IJGENj3aTuATIlQdg9DcMmXkHAIbDI4iwdl4L7A0rWIbY4PriZWpk1exF2QlD6QiDLAqFAPAVG6ItTUd jb2 [file] 1fNXAwnQRLSTdE5zraZPMZYWAUY5IkEvafSGekpMTnv6nMOZ2pZkPzRY+JOSÉ+K5OFzXJZiXHyBnKhZ6F [file] ycmxqejfHOm/Jesús/Jesús/RYkTBqdee0WcqN1NVAV0x90rw2VcpCoJylssT65ArdvRqYibhF2l08v0TNWZ [file] O9Uhi0NwXVAfURAMKk3+CbH9ABQ4xVFlYlq9CAEzCnzsKZWHDa== ID Date Data Source [id number] 08/24/2020 06:05:59 PM [facility] Name Value Range Interpretation Code Description Data Alisson rce(s) Supporting Document(s) Oxcarbazepine [Mass/volume] in Serum or Plasma 13 ug/mL [address] [place] [address] (NOTE)This test was developed and its pe rformance characteristicsdetermined by [facility]. It has not been cleared or approvedby the Food and Drug Administration. Detection Limit = 1Performed At: [facility] [address] [place], [place] [id number] Ibarra MD Ph:[phone] ID Date Data Source [id number] 08/22/2020 06:50:11 AM [facility] Name Value Range Interpretation Code Description Data Alisson rce(s) Supporting Document(s) Bicarbonate [Moles/volume] in Serum 29 mmol/L 22-29 [facility] Chloride [Moles/volume] in Serum or Plasma 98 mmol/L 98-107 [facility] Creatinine [Mass/volume] in Serum or Plasma 0.59 mg/dL 0.70-1.20 [facility] Glucose [Mass/volume] in Serum or Plasma 88 mg/dL 70-140 [facility] Potassium [Moles/volume] in Serum or Plasma 4.0 mmol/L 3.4-5.1 [facility] Sodium [Moles/volume] in Serum or Plasma 137 mmol/L 136-145 [facility] Urea nitrogen [Mass/volume] in Serum or Plasma 9 mg/dL 6-20 [facility] Anion gap 3 in Serum or Plasma 10 mmol/L 8-15 [facility] Osmolality of Serum or Plasma by calculation 282 mosm/kg 275-300 [facility] Creatinine/Urea nitrogen [Mass Ratio] in Serum or Plasma 15 [facility] Calcium [Mass/volume] in Serum or Plasma 9.2 mg/dL 8.6-10.0 [facility] Glomerular filtration rate/1.73 sq M pre dicted among non-blacks [Volume Rate/Area] in Serum or Plasma by Creatinine-based formula (MDRD) >6 0 [facility] Glomerular filtration rate/1.73 sq M pre dicted among blacks [Volume Rate/Area] in Serum or Plasma by Creatinine-based formula (MDRD) >60 [facility] ID Date Data Source [id number] 08/24/2020 12:05:57 PM [facility] Name Value Range Interpretation Code Description Data Alisson rce(s) Supporting Document(s) Oxcarbazepine [Mass/volume] in Serum or Plasma 4 ug/mL 10-35 [facility] (NOTE)This test was developed and its pe rformance characteristicsdetermined by [facility]. It has not been cleared or approvedby the Food and Drug Administration. Detection Limit = 1Performed At: [facility] [address] [place], [place] [id number] Sanjai MD Ph:[phone] ID Date Data Source [id number] 08/21/2020 10:10:19 AM [facility] Name Value Range Interpretation Code Description Data Alisson rce(s) Supporting Document(s) Levetiracetam [Mass/volume] in Serum or Plasma 12-46 L [facility] ID Date Data Source [id number] 08/21/2020 08:17:58 AM [facility] Value Range Interpretation Code Description Data Alisson rce(s) Supporting Document(s) Magnesium [Mass/volume] in Serum or Plasma 1.7 mg/dL 1.6-2.6 [facility] ID Date Data Source [id number] 08/21/2020 08:17:58 AM [facility] Value Range Interpretation Code Description Data Alisson rce(s) Supporting Document(s) Bicarbonate [Moles/volume] in Serum 27 mmol/L 22-29 [facility] Chloride [Moles/volume] in Serum or Plasma 98 mmol/L 98-107 [facility] Creatinine [Mass/volume] in Serum or Plasma 0.54 mg/dL 0.70-1.20 L [facility] Glucose [Mass/volume] in Serum or Plasma 118 mg/dL 70-140 [facility] Potassium [Moles/volume] in Serum or Plasma 3.9 mmol/L 3.4-5.1 [facility] Sodium [Moles/volume] in Serum or Plasma 137 mmol/L 136-145 [facility] Urea nitrogen [Mass/volume] in Serum or Plasma 11 mg/dL 6-20 [facility] Anion gap 3 in Serum or Plasma 12 mmol/L 8-15 [facility] Osmolality of Serum or Plasma by calculation 284 mosm/kg 275-300 [facility] Creatinine/Urea nitrogen [Mass Ratio] in Serum or Plasma 20 [facility] Calcium [Mass/volume] in Serum or Plasma 9.0 mg/dL 8.6-10.0 [facility] Glomerular filtration rate/1.73 sq M pre dicted among non-blacks [Volume Rate/Area] in Serum or Plasma by Creatinine-based formula (MDRD) >6 0 [facility] Glomerular filtration rate/1.73 sq M pre dicted among blacks [Volume Rate/Area] in Serum or Plasma by Creatinine-based formula (MDRD) >60 [facility] ID Date Data Source [id number] 08/21/2020 08:17:58 AM [facility] Name Value Range Interpretation Code Description Data Alisson rce(s) Supporting Document(s) Valproate [Mass/volume] in Serum or Plasma 102 ug/ml 50-100 H [facility] ID Date Data Source [id number] 08/21/2020 08:44:46 AM [facility] Name Value Range Interpretation Code Description Data Alisson rce(s) Supporting Document(s) Leukocytes [#/volume] in Blood by Automated count 7.5 10*3/uL 4-10 [facility] Erythrocytes [#/volume] in Blood by Automated count 4.57 10*6/uL 4.6- 6.1 L [facility] Hemoglobin [Mass/volume] in Blood 12.3 g/dL 13.5-18 L [facility] Hematocrit [Volume Fraction] of Blood by Automated count 38.6 % 4 1-53 L [facility] Erythrocyte mean corpuscular volume [Entitic volume] by Auto mated count 84.5 fL 80-96 [facility] Erythrocyte mean corpuscular hemoglobin [Entitic mass] by Automated count 27.0 pg 27-33 [facility] Erythrocyte mean corpuscular hemoglobin concentration [Mass/volume] by Automated count 32.0 g/dL 32.0-36.0 [facility] width [Ratio] by Automated count 16.9 % 11.5-14.5 H [facility] Platelets [#/volume] in Blood by Automated count 182 10*3/uL 150-400 [facility] Confirmed Differential cell count method - Blood [facility] Neutrophils/100 leukocytes in Blood by Automated count 52 % [facility] Lymphocytes/100 leukocytes in Blood by Automated count 29 % [facility] Monocytes/100 leukocytes in Blood by Automated count 16 % [facility] Eosinophils/100 leukocytes in Blood by Automated count 2 % [facility] Basophils/100 leukocytes in Blood by Automated count 1 % [facility] Neutrophils [#/volume] in Blood by Automated count 3.98 10*3/uL 1.8-7 .0 [facility] Lymphocytes [#/volume] in Blood by Automated count 2.18 10*3/uL 1.2-4 .0 [facility] Monocytes [#/volume] in Blood by Automated count 1.16 10*3/uL 0-0.8 H [facility] Eosinophils [#/volume] in Blood by Automated count 0.14 10*3/uL 0-0.5 [facility] Basophils [#/volume] in Blood by Automated count 0.04 10*3/uL 0-0.2 [facility] Nucleated erythrocytes/100 leukocytes [Ratio] in Blood by Automated count 0 /100{WBCs} 0-0 [facility] ID Date Data Source [id number] 08/20/2020 08:29:34 PM [facility] Name Value Range Interpretation Code Description Data Alisson rce(s) Supporting Document(s) [facility] FCCJGg3xWgJJMaIj37/ROGbuLYYwl6GrEMexWRm7JQveKBUtY9QsLYH0cQ4gVFA4UJwTZcWrRkLzTHK8 lbm [file] AgICAgICAgICAgICAgICAgICAgICAgICAgICAgICAg ICAgICAgICAgICAgICANCiAgICAgICAgICAgICAgICAgICAgICAgICAgICAgICAgICAgICAgICAgICAg ICAgICAgICAgICAgICAgICAgICAgICAgICAgICAgICAgICAgICAgICAgICAgICAgICAgICAgICANCiAg ICAgICAgICAgICAgICAgICAgICAgICAgICAgICAgIC AgICAgICAgICAgICAgICAgICAgICAgICAgICAgICAgICAgICAgICAgICAgICAgICAgICAgICAgICAgIC AgICAgICANCiAgICAgICAgICAgICAgICAgICAgICAgICAgICAgICAgICAgICAgICAgICAgICAgICAgIC AgICAgICAgICAgICAgICAgICAgICAgICAgICAgICAg ICAgICAgICAgICAgICAgICANCiAgICAgICAgICAgICAgICAgICAgICAgICAgICAgICAgICAgICAgICAg ICAgICAgICAgICAgICAgICAgICAgICAgICAgICAgICAgICAgICAgICAgICAgICAgICAgICAgICAgICAN CiAgICAgICAgICAgICAgICAgICAgICAgICAgICAgIC AgICAgICAgICAgICAgICAgICAgICAgICAgICAgICAgICAgICAgICAgICAgICAgICAgICAgICAgICAgIC AgICAgICAgICANCiAgICAgICAgICAgICAgICAgICAgICAgICAgICAgICAgICAgICAgICAgICAgICAgIC AgICAgICAgICAgICAgICAgICAgICAgICAgICAgICAg ICAgICAgICAgICAgICAgICAgICANCiAgICAgICAgICAgICAgICAgICAgICAgICAgICAgICAgICAgICAg ICAgICAgICAgICAgICAgICAgICAgICAgICAgICAgICAgICAgICAgICAgICAgICAgICAgICAgICAgICAg ICANCiAgICAgICAgICAgICAgICAgICAgICAgICAgIC AgICAgICAgICAgICAgICAgICAgICAgICAgICAgICAgICAgICAgICAgICAgICAgICAgICAgICAgICAgIC AgICAgICAgICAgICANCiAgICAgICAgICAgICAgICAgICAgICAgICAgICAgICAgICAgICAgICAgICAgIC AgICAgICAgICAgICAgICAgICAgICAgICAgICAgICAg ICAgICAgICAgICAgICAgICAgICAgICANCjw/oWWnB6hceQDnchJ2A2deFp8MTs3ABL1ld2RyWHVsAFve fqHgLtxTOkDgLOPkYlaBErf8HFyzEF7TlBWiL3WdU0HlBIbxTQ8TNZNqCLVkaQNvZGEzMVRhXuZ1FGBb IRwxQM3ChRMuYNesQFRaXRJtHyOdYHUcAUTiUQIvQI JkXXXOXYVdDWOpUrKtHVHoTDLwDZmvGZYTMX4SDvAvR4SqpW67LEiIPi9+DQplbmRvYmoNCjQyIDAgb2 BiPGc0SJ0VIMVqRgwrd1HlRDGoUUFTCUltPC2AORS8ZNCpUXBqRv4DZTXgX528wtUeKP1KCy0SYcAhXP 7mkf9NDMPxBCJtHsxUIcj5EUatHK4GaNCcMHpGa20i rYl4uxNdlVLKNNHwgZksOVGIfXKejJ6qO3Xyilc1PIGEMKXkzATiQP8iQd1tHZFdQGP3EcE3VJQZUQ5P JXCcWSWaxXFgIMYgVWDTEU2XRBlkJOW6HEMgtdMjxIJgUYjfIC2CKETsedVuUSTiJEMDGXp+Yw1PON5y u4MsZYl6VEEwMW6xbm2MVVaJQyCzT9D4uXPlG4R8EU fsKd1RHGUrYWZtLZFbNYWVWYfqBO3ZRK0oafU3BX5AaIVeQKIoMJPbnIHrWFf2G12heKBzKSceJJ8YER A+Patricia+Qe4OFMJoUIJvDAHvZfGeVRKPYqBeS7UnY8GJh8VbI4QiMX55iRzcmeTsFJntKT4BRA6mRLHqJF BRGE4PjFSkzQ6qgvH1IfKmFQDAFkNiN97orKIxDOXv CNKaOVWuYn4WAXSlM2ObvtJjkGotisKdHVHzMNBKUU3XVPnhxkApaWAuqBkoMO83fKphPW1SAr5MKiXz PE8iwy0PeBQcVl3DZTH0WR3OZNCnIOGkIENkLDA8WBVpMrLkPEleQEVoWMBgRIY2NOEvLWUpML3ILwZz YXQrXOOpECIoVEYdZOQjhn4OOVWbOLJ8NRncSUJyOF SrOTTaOWvkAVMiZHPoWCZ6FOOjAWFdLK6DCwPnGEZdVKF5ZwDiBSFnVMUpgq1SZLGkNFPaDtcrPPGtGT VwABFxLRmdXSRzLUR4WZCpVSQwROUxUP1JQpQmSZZkFIXdOINeIKYkRQPeid3ZFJIqHDLpWDWnUBUfTH TkJZZmUOjnUAGeVSN7JZXpAMZvDWNjMF4YZkSfPUBg WRG3OmReKAHyNVNwkp0UQZTeJZLiZmS2UfEmAOBoCOWeYVegZIQkRJD5SQl3AWMiIAWeNO4OWkRuZWLn TBZ0SUUhRKPwKLRwah4KCVDgJBSkEQQ5XTFiMJRwCINrMSypXLQiLYK7Mpt6PSEiTPRnIV2KCjMfUKHg HyC1AKQjHRFyJHFhco1EOITdJYNzHQVnRuSjKQZlCK QhCHueTGDrCZZdOGfiVRQuFSKdXY2OOvGxPCMlPhM7YsahBQVvEUCdsd2BYPLiQKRhOUe0XoRiAXKsAE PhOTsfUMSrBHTfMREoOGSjKBDgHG0BZfUvLIVzFsRvGrUgMPKmEKTzhl0EQAHjPDZmFcHmHQJsTABmQK DsFAvwSTJzMJS8EqjdEGDvNQLjUN6UEtAkLURlEnI2 XoecBPFoNGAuba1GTRNxPLGpROQ7CIFyXGQmEBIsGCyiHUKyXQQ6RFO7KPOkBSRdLZ8TWyCjMPCoRgIz SXEhJGFxZKDxzz5IJBHwWERsRbA1VdLjTRAaTNLmFTmgIWHrOJI6XLGxNVLwNXQyPA5MTyEqATWzQwN6 EJvuBGFoPLFnvf6VBTXaBGX8KAglCFYmXNMrKMEuUZ wsRNCbYVFfROErTVHoXSFmJP2UIhLtZCHpYRDaPzLmKSBbPUQqcb4HXXDpJYP1EwB5ZFSxFZIjJOQkGT pwKOYsMIPrUaQfIXTfADMkCD0DLtDhETIhAOA0QoMkTBOgTBMdrq7NVTJwWEE6Hmw8XoHcQLJaMLGoRP utSVDfQJY2MTAlZGXcNMNtNC7VVjUhGTZnRVS9YXKc JTKbHFLieg5LTYIdTOZ4RAc4RPEdKPGuXXKyRZsaSGIqOYK6ZIS0KOBxFZSbGD9CBwMzVAWrMCEnJLZl RIYxCOFsha0TdUHyoAhsya1YJBoJKm4FbNcgOCJ1YXvdKc5trRP9TUDcASTDNb4AojLfEAWkMRPYZLia FKJbLTO2QXOcLIY1RyC8UWPoAbRoPHTpCOioMrXhAF HoBDfgVpI6JeOjSrN9IAGmZjUtXITyOIY0BrG3WQUdTNJfJXKrVCH+PS6jWEx+Wg6Fk3ZbmeJ7smDjGJ h5GyRmLB2WCYJIX1NTGq== ID Date Data Source [id number] 08/20/2020 07:49:02 AM [facility] Name Value Range Interpretation Code Description Data Alisson rce(s) Supporting Document(s) [facility] NLZKBw0mBiBIWzBug9EcVrWcJXJiQQ6japw9F9N0bLDcC9KolFZbf3flL3WuA0TwABLuVPFKBE5HbJKb jb2 [file] Steve+ktolnkJbtNd3QeV8+W42G4CR4saVuW6oj8/GqE 7x1+lRumD7+RnL7gqcmYS3+/+o4d+46/+l62rtUOjXaqcE5Nu0d3t/vtQ3wGzm+/mhp+6jZPe8aqmf/x 9BUZLz83ExLuUkqOcnpt1Qk/e60gwlofyE+2Pnp9+dUcHvuJv/Mw3ERPYgzPYh5N7x/M+Ipn8RAj/H75 1cc/YmPyiX/z99/4t8W4+/KkeTf4uV+QVUY7LvRKyo OBPpW6o+96eZ44z8D5Bdwow+37rseOdt+/n88565q1/KofWa7S3W9e5D3/PruV02/XXjC4k8SSIe1gaR TEoxl1hGStyDTb/66PP+dvjj/PKD/+/IkqcHR3lRam/T3cPFf6Pkegm5uin6Ls/Dvkjt+B9ashd/wO6S gfKB+ox1C/bw61Qa8tB6hJdV+VJ7YuuK+U71se+furniture sander N/LPvR8494QtcYlIakH9n90WyymXT3awqkgNEuMJQ5BeDb+YlyyVn985v444zDNt/65kCL1rY5JblbD5 +40HB/hGSP1lnc/h3rOaTK11jgYIM2ebm+ca5Qu/X6hno/30QeoIcs7N9OrIrIYOVG5m2Vwu7QnxTP/y vP6We/xm/ZqCII0X98qt/M3RN++98eAAvxpjonyifK O0wCtosC/4cN8wwF8T9OeR9eVY+cGB/OCwyyeHdZQPlA+PF2gH5P2pX/lE+ER8lolX9ToDjB7lgfom04 VodfmDq60gRJZ60PHH6w87lN/tloL2wIW19KO+aUu9kukr1Kfqy7/87/Ab/w7fKL/x/pg33h+zoRz+PO HPE/488Xwnnu+HdlJ6Has6tS/dQ1BJiY2E4TzZ0jKx 4xzroXf4W+sup7UoyC/7+4Xxi/xwoLaCoNUjNFyK1qxWtSu/jli/xflI0kV98/lTPW4aSH32Yz9u9sMI 61cj1q/CJmuh/o3+02fa1Ak+PGL9Kq/z6ged9o+iz/vmU8a++d+x8IcfeeEf/LkGk81CyV72HdFdjnO/ 88y+8eAIfhUHPAS/Ouv/I/DDrE70fULfm7rXXWa2pv V+kXK6QQkOy/pmr63aPahhwLQmqbsSRYu8gR4+riPh8ZRzhmwtVYak4hbVk4V258AvOf54xoPBj/f5Wq xfPde/99GUQzsxsyg6+Vdw95UU+OHZn39zhSaK4Q0F0ynbt/dXhu+yEY5sTXfh9AdL+vlZo67HfS20Xn f4By9hgrE3dYNFA+W32IrqGj21iHyPOWmsU2vB+eVX ptBXoW9+ofUrRddvkDh8IgQJ0BiT6Sf/37f+Ht+bxTbao6/G/rixscmc6DSmZp/tyQ/P5Fqm7xhuty/i zfkEjygDRM20/GpEHw6/uhIDM9zet0lNjaevg/vyfc8N60hTpm92yer/U8Sp0dv3w823sC5zv+7UGeXf wOPs1xrMHki6jor8cfmWaA/TbzydoscvubTd5rDnur j+bgicetvqvo0Cjj0TD+aP5Z42KAItLe9+RZtoZFGu7aQ5U22m6XpKQFWAvyfuTHykjZ2wslhNvRlH/C kpyl3dQ3b72fkCD/WGCkox7jT78cOh+HRxz0y5sWy4IniKO3enrx1o/IiO2H0d+UPoh0ND8Nw/v+s5Fv nB5/uOE48dui69QuTB+DUp00hyavB70OiYy5x/Mqxf LsNJectgGo3Din6e+nsAf2qq/Gv+fB/7N7bY/q43yu/7wcnp64Q27/teQnlB0nu49xPV1Mt18qIbnzL+ 0JAfNKxfGdavbGJ+So8KDxDvX/8B5Ckle7H4GR3YdiP9h5m9jIfx+F0318UvWxU0Kx6ChNv6EYc8jzgd 41ThQIoqf74gvs3tWQh/ukyjOJ0h6DfF/JmvJ7ucqt QVWi4LN86i+93062625vqcg2PG3B0aImTT8IOri28C3sgjXaix59GolxJQS32IdR819Wpuw9V550ouod 2GM7A3tUbTgeMGqqd+9cgPWvym/0mlL56ife0zUS61/nXwKw9+mr999AZZEzK+5M8Ibly8D82LP1JlKb 21OWssE4cpOpxAE0tk/uxy+fRS5r6w+gBaUl426Z+o f1M1ktaiqHYf+iI/4So6Zzmh9BAqi7KDg8gejfKe355bzfYUyeS7tauF4tdtEJ2jb/rBT14D9L9g8lpW er/8Ck54VuWKI+Y1yu/2NL0p8049/L6j/vv9s/ebL/MfUMtOA1as50gI99e2Z/z+cpqqE7nXabm+3fF9 y2Z8jjDj1Ws/ubn2F2eu+zV2lqLkkUN/4/i0W2W81R wHni++k7vhN2eqT3HhG/KpF327VwAA/ZVcbi1p4UTMDtrYhhs3cAVu+kRzOkkng7oHeqKPNpjq8di/8W Amber+RXxOQCa8c/op7hI79a/Ec14XV73dwjgiczI9lFao4+yUQc3euV4/X7PnK/+V/Z0fp6cx/v+pVj/c [file] 0NkF33OgT9d1/Slb69ob++ob1KtwR+10G1x43qe8s8 NtwoPBGcNNaDb3C8jX+Sa7cmx5JlwLpBay/j+kw81kZJ0yEn+NSJs6b6u8/rW/4KcRorp4GHk3P8mUtM P278pc8ewalM7pq7sJF6Dzahzxs05WdnUhh+5TnBzl60TwtWhiLsoRUugIEg5SdxoUZ6a2xM5a6fm4So lBt+H/NVXH/0jQev3L9RsI5JFmDxI8+thfo3+r+vXv vo+1jtg4909syem/vG+A48861l1kdd+66Z3uxjsKp50Ep/G+N3Y/xuR/3n+XqUn+w1LgHvajM88nm+lO 6M4214YpS2fmD5yzOcrA+71mnS00OQJoG+8t92IMEl6HajuTsrE/DVd+uGOX15l8ry3iiZ+U0DkzOFuR d41VAia/2PLc/Cz8S8WjYq0rfawCT8JMYbj6X6HNOn 1zkkIZ/tDUCaYi3vxW8FA3320qIac91cVR0CqqVSqYt1sa+cxxKgPcbY3RTiE3y//PyciZA+oL7MNL6+ XpV33vx/Unn/DuK/oJ2Qswg20jjHie0YkF04KtPxDBnChwb/l7Ohz7VzneYmJlFv5IS6B3Ybjc4qrh9j qSz3x9iKVFpwCmMju3MLSqeppuv2f+44RHIm0wy1b/ V3+yIDLglQ+zPw/O7BZNH12+u/Uf/g+z/9/dDfD/390nHyfuNcM+7X8P/u8rQEPKk035vmRsu+ezdkZY HnfrGR+VUoczcGt44LZVA5L8qtRM2L7pmrb5bRpzE/mn605QGI/jK//ojDNkeoKg48rIvg6KhKIfTs4M RA353zeNUPM1ywd/v9CY28/t/7lolKh17+L9ib///9 3Uf+/3e/8aL+xmUYckCqfDHcE5x8ns/97om//+53j+iUn83tNgdss3HdZxHsdedPCy1WaxmvgbHVovp+ EPrqGWz+ZmEDvzjO/sdB8Sv9PNcV1A4yq3Gt1c9xS1+c6Bn3l1bbAs2/gtHZn6SoTphi+v+by2x9urPV +gp9J/JT2ikhT9WgM8+7MmrPoa/q/9me87v+9cfQV+ //6e+H/g3wnwt8c36PVLa+zq9Gc6q9aavj9Nv4rw/oibGx3KrTG0V/28l0lf8asxGe8vo0XdwQ/3Xqv0 1mRphx0FFps+r/9PdLf7/z53Qm4n+/73zgborf76mtO/qq/j+/69zzu6+9Gv2f/m70d6O/O/2dnu+m57 executive vp+W4an/eh67/f+2J/euNAX+H/n02924eWwvpfnJM4 Cp/49YRUqNNyrSCln3QWnAkVX/V/o78b/d3p7/Q+Wv7Ju7bpsbC0BfCP4pak9I8txnb/p76q/3+fv5+e PKmv0j/3yibL6rt10/vFR+d+8dG5i/6+6S4Fnie0Y41Ic/PR6xZ0TV9/9PdDf7/09/fVN8ToMDtyvr78 /+/0906f//RkFBrA/FupXrDXUZHHy3QEAxvduykUpl v0Lss8ap0a+Xdv9H/8QvJt086Tzh/ws5zteo+7hJ2bzGQ9P+/f/rXn2z/2yAjBL13ZZ7z7fy/w/0l/p/ tNfYXjLDq+5SjAbngr718x33Xjzg6+6EsBfxfTe2DKmI6/2ozi4mBnaKRy/Z/+Uj2xCGsy6zA/UT6grm 3Q/B9pSiapEx09ft5H3vsAd655/Q6II0N3J7+/9Pcv HoyKAd//v+uZX/+XtmFAbkWl2pfRpUFi/3/6+Wb+Ct/80f846uve/qr+G4lwyL6S91E//1D+6mb+Cuf9 8nbAFvSntwdPND0t5V1Gy+gc8yeN6u/64v1L+Laurie+Laurie+Laurie+Laurie+Laurie+Laurie+aub+ascHzJ/5fj/8/fc [file] VPRg== ID Date Data Source [id number] 08/20/2020 06:06:32 AM EST [facility] Name Value Range Interpretation Code Description Data Alisson rce(s) Supporting Document(s) Consultation [facility] BVNDUe0xXzDGDhPu76/ZUTdfRLBps2BdUZbdLUe9ZZsvQIXrE9JbXPI0bF1nYFE5ZBfIVgYoTgUrEQF3 lbm [file] ICAgICAgICAgICAgICAgICAgICAgICAgICAgICAgICAgICAgICAgICAgICAgICAgICAgICAgICAgICAg ICAgICAgICAgICAgICAgICAgICAgICANCiAgICAgIC AgICAgICAgICAgICAgICAgICAgICAgICAgICAgICAgICAgICAgICAgICAgICAgICAgICAgICAgICAgIC AgICAgICAgICAgICAgICAgICAgICAgICAgICAgICAgICANCiAgICAgICAgICAgICAgICAgICAgICAgIC AgICAgICAgICAgICAgICAgICAgICAgICAgICAgICAg ICAgICAgICAgICAgICAgICAgICAgICAgICAgICAgICAgICAgICAgICAgICANCiAgICAgICAgICAgICAg ICAgICAgICAgICAgICAgICAgICAgICAgICAgICAgICAgICAgICAgICAgICAgICAgICAgICAgICAgICAg ICAgICAgICAgICAgICAgICAgICAgICAgICANCiAgIC AgICAgICAgICAgICAgICAgICAgICAgICAgICAgICAgICAgICAgICAgICAgICAgICAgICAgICAgICAgIC AgICAgICAgICAgICAgICAgICAgICAgICAgICAgICAgICAgICANCiAgICAgICAgICAgICAgICAgICAgIC AgICAgICAgICAgICAgICAgICAgICAgICAgICAgICAg ICAgICAgICAgICAgICAgICAgICAgICAgICAgICAgICAgICAgICAgICAgICAgICANCiAgICAgICAgICAg ICAgICAgICAgICAgICAgICAgICAgICAgICAgICAgICAgICAgICAgICAgICAgICAgICAgICAgICAgICAg ICAgICAgICAgICAgICAgICAgICAgICAgICAgICANCi AgICAgICAgICAgICAgICAgICAgICAgICAgICAgICAgICAgICAgICAgICAgICAgICAgICAgICAgICAgIC AgICAgICAgICAgICAgICAgICAgICAgICAgICAgICAgICAgICAgICANCiAgICAgICAgICAgICAgICAgIC AgICAgICAgICAgICAgICAgICAgICAgICAgICAgICAg ICAgICAgICAgICAgICAgICAgICAgICAgICAgICAgICAgICAgICAgICAgICAgICAgICANCiAgICAgICAg ICAgICAgICAgICAgICAgICAgICAgICAgICAgICAgICAgICAgICAgICAgICAgICAgICAgICAgICAgICAg ICAgICAgICAgICAgICAgICAgICAgICAgICAgICAgIC ANCjw/pEJhV4gdeKSswuZ8P9cbLo0EBx8SOA7nq9XgEGLtSLwhprRzAgxLYxXzXQHcKwvIHfh8XJmvVX 8VrAOfP7EfN3ZcKOikIJ6ICNTkXJLulNLtBOQaJFJiCpD2AMXjNQjgGH8GhLSqTAfbMKUlKRDyGvOeID OuYOYxDBXlFKYkTPYYWAGpRBBgJbItQAMqMQFiTA8I BRTjY701bpExFx5OQs5MHfXbRU0gbo0SSgQkRQJsOpbZWts9RHelLM4NoAIgsBQfSgExZKNPIxXrX9nb k1MmIwSvHTUXAUbwMQ4Km5MehMBeCCv+Gg9UWW4fn9YpMPokAeAbPY3uze4SRLaSHhIwG6YxnRmeAFQe hfP4oHKpPVG0ETw0n1NxqtCKKT7dRYVGDJMmkAXbSY 1yXq1kQDSkJYJzFhM0PIUPVM1RJXBmVQXfzADjLMOmLMKIAA7LKDoxVTC2SCDbjmAjcVYfJFkaXX7LWU JlbnQgMzIgMCBSDQo+Mv8USJ9eu2QqHFcrTFBpMZ4bdk2OQAuHSfJfQ0D1nQVsY7F3IQyaHa4RWNLsPK JvNkQeOAJTLAjaDQ8VHK4seiP5XZ3DjYFbOIJiXHFz uVBmGAb1A09atTBzKRdyTE9GNLZ+Patricia+Sf5XOLWzNOCqIMOzAdKvSBWTIdZuN3NaY8CQb1NzP4YzFT62 zDblvsIoYGvsHO3MHX0yFRIkMWVBWJ5CsKLqmW2cnfXpXoBbIQBVFyOlM61kgTZiXIFvMALxGMJaLc5B KTXgR5PhmzRvhAyhapObHQAjIITEEF5KODxauyUjuC JxmMobUI06pRkkAX9GUm6GIsFvSO5kjc2FhEKvYk2KJYYaIL9OKIBjNKLqQWQuFQX8CYJqGwIxGTsxKT LyCVBkDOU9EFDjQZFvDY5ZHkZrBCLpRiBzWXWsXAFvILPpvv3HWVQpIAKyFXk8CUSfUENqMVVoIYtzPE XqQUKvOGW1HYZiZKWsUL5JMsTuQBMaPVV0OGAgHWYk DQYmle7XEJIaPBPaYzgsTxBmWFTgPMHaNDvwKOKyGRJ5Mtt2PCJbCWAcEL3JNvIbYNDpFVT5FTJzFTOj OFXryn5ENQSmXFWcDDLnTCYkANHqDJLsZJznJBFhQWHjFkM1ULAzPTHbEZ8NVlCsLOOuLVA4EJNxRJOm WIIfok0XBQLzQYHvCeb3GVEmBPCyPGInNSznSRYwJJ X3YVnlXSTqYOEvXV4CNhOqXWYfMYboAWKwWQCiTWDdjf5XCKPzFKCmWzL6IIHdFFMlTJMwWNuwWLMdHO O5WMF7DKNzLBOrGM4YHwJkIJYgMQe3VigrXOPiNAGblg7IOHGgGFPzCLCrGFQrXBUcDKHbXVxgVBGqFJ K9ZcI8SFIdDXVgVD5RSmPxOXKmYiQoLmDrZBKiTZBl un0YDGTrSPVhHWN3JECdGRQwGDWsWOrsEZExHUPaZGV4JOUkJQSoHE8BCmGtYGKnQlM0AZYvTQFfDOOq nw3ZXAWmQSIyZSmlBrTyTIXpBUKtRRjbQKYtHGKjURc5KSPnQBSqRK8IMgDzDIBoQjTcMCTyFIDyDZKd jl7UOSGtOLWgVaC8KCKsOIRmLRPbYHarWIQnQWPoDU Q5RJMdGIAiVV3RHyViIIXwWeAvUJjyMYIaZPIvcg0CADTwWXLiMGC0TjOyHAEnONKfEZvtCLMbHSS2Ce XiOMAcKBRdAA3JNcDxWVHoBrBnLGKyKFLwQJFvbb1SURQmOLSgFnK1LbOaRWPxETQpDSivWGIcEJG1Uq xzHQAoAQMbCW7NWdXhWJtaSTDAEmu8BHutL9u1CPIt BF9EU4Gou0BnBdDcQRXXEFdbBF1uyaRdISYfSd8CI0wGKdhcMQFiBaVfKFDeFHd8XvZuVBJhSEXqL1Nv ZyW0WZBxLi1tJNE2KtUhOnI3NNZ7Knx5XLMnKMD6BSLjFIP0WdHkKXRuBpLpGV2KHq4XShP8FWV9pDPf Ll2CUdK3XmaQGeEtVI8BVEt= ID Date Data Source [id number] 08/20/2020 06:41:31 AM EST [facility] Name Value Range Interpretation Code Description Data Alisson rce(s) Supporting Document(s) Color of Urine [facility] Clarity of Urine [facility] Specific gravity of Urine by Refractometry automated 1.013 1.003 -1.030 [facility] pH of Urine by Automated test strip 7.0 5.0-8.0 [facility] Protein [Mass/volume] in Urine by Automated test strip Neg [facility] Glucose [Mass/volume] in Urine by Automated test strip Neg [facility] Ketones [Mass/volume] in Urine by Automated test strip Neg [facility] Bilirubin.total [Presence] in Urine by Automated test strip Negative [facility] Hemoglobin [Presence] in Urine by Automated test strip Neg [facility] Leukocyte esterase [Presence] in Urine by Automated test strip Negative [facility] Nitrite [Presence] in Urine by Automated test strip Negati [facility] Leukocytes [#/area] in Urine sediment by Automated count 0 /HPF 0 -5 [facility] Erythrocytes [#/area] in Urine sediment by Automated count 0 /HPF 0-3 [facility] Service comment [facility] ID Date Data Source [id number] 08/19/2020 11:16:41 PM [facility] XR SKULL LIMITED [id number] RESULTInterp reted by:MARILYN StanleyPROSHAWNA INFORMATION: Exam: XR Skull, Less Than 4 Views Exam date and time: 08/19/2020 9:56 PM Age: 54 years old Clinical indication: Other: Shunt series TECHNIQUE: Imaging protocol: XR of the skull, less than 4 views. COMPARISON: CT HEAD WITHOUT CONTRAST [id number] 08/19/2020 6:45 PM FINDINGS: Tubes, catheters and devices: Left frontal approach shunt catheter noted. No evidence of break in the visualized portion of the shunt tubing. Sinuses: Hazy opacity in the right maxillary sinus. Bones/joints: No fracture. Soft tissues: Unremarkable. IMPRESSION: Left frontal approach shunt catheter noted. No evidence of break in the visualized portion of the shunt tubing. THIS DOCUMENT HAS BEEN ELECTRONICALLY SIGNED BY KOBE MCKEON MDThis document has been electronically signed by MARILYN Stanley on 08/19/2020 11:16 PM Name Value Range Interpretation Code Description Data Alisson rce(s) Supporting Document(s) ID Date Data Source [id number] 08/19/2020 11:15:41 PM [facility] XR ABDOMEN AP SUPINE AND LATERAL VIEW [id number] RESULTInterpreted by:MARILYN StanleyPROSHAWNA INFORMATION: Exam: XR Abdomen, 2 Views Exam date and time: 08/19/2020 9:56 PM Age: 54 years old Clinical indication: Other: Shunt series TECHNIQUE: Imaging protocol: XR of the abdomen. Views: 2 Views. COMPARISON: CR XR ABDOMEN AP SUPINE AND LATERAL VIEW [id number] 08/04/2020 6:21 PM FINDINGS: Tubes, catheters and devices: Shunt catheter noted traversing the left abdomen and pelvis. No evidence of break in the visualized portion of the shunt tubing. Gastrointestinal tract: Stool is noted throughout the colon, correlate for constipation. Impression.. Bones/joints: Spondylosis. IMPRESSION: Shunt catheter noted traversing the left abdomen and pelvis. No evidence of break in the visualized portion of the shunt tubing. THIS DOCUMENT HAS BEEN ELECTRONICALLY SIGNED BY KOBE Darby document has been electronically signed by MARILYN Stanley on 08/19/2020 11:15 PM Name Value Range Interpretation Code Description Data Alisson rce(s) Supporting Document(s) ID Date Data Source [id number] 08/19/2020 11:14:51 PM [facility] XR CHEST FRONTAL AND LATERAL [id number] RESULTInterpreted by:MARILYN StanleyPROCEDURE INFORMATION: Exam: XR Chest, 2 Views Exam date and time: 08/19/2020 9:56 PM Age: 54 years old Clinical indication: Other: Shunt series TECHNIQUE: Imaging protocol: XR of the chest Views: 2 views. COMPARISON: CR XR CHEST FRONTAL AND LATERAL [id number] 08/04/2020 6:21 PM FINDINGS: Tubes, catheters and devices: Shunt catheter traverses the left neck and chest wall. No break in the visualized portion of the catheter. Lungs: Subsegmental atelectasis/scarring in both the lungs. Calcifications noted in the mediastinum. Granulomas noted in both the lungs. Pleural space: Moderate bilateral pleural effusions with adjacent compressive atelectasis and/or infiltrate. Heart/Mediastinum: Unchanged. Bones/joints: Unremarkable. IMPRESSION: 1. Moderate bilateral pleural effusions with adjacent compressive atelectasis and/or infiltrate. 2. Shunt catheter traverses the left neck and chest wall. No break in the visualized portion of the catheter. THIS DOCUMENT HAS BEEN ELECTRONICALLY SIGNED BY KOBE Darby document has been electronically signed by MARILYN Stanley on 08/19/2020 11:14 PM Name Value Range Interpretation Code Description Data Alisson rce(s) Supporting Document(s) ID Date Data Source [id number] 08/19/2020 10:04:58 PM [facility] CT HEAD WITHOUT CONTRAST [id number] RESU LTInterpreted by:Itz Farley MDINDICATION: Unresponsive, history of hydrocephalus s/p 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 shunt.TECHNIQUE: Contiguous axial CT images of the head from the base of the skull to the vertex without IV contrast. Coronal and sagittal reformatted images were also obtained. Automated dose lowering techniques and/or adjustment according to patient size were utilized for this exam.COMPARISON: CT head 08/04/2020 and 08/03/2020.FINDINGS:There is unchanged positioning of the left frontal 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 shunt with tip terminating in the frontal horn of the left lateral ventricle. There is redemonstration of the right frontoparietal craniectomy and cranioplasty with the underlying postoperative air fluid collection. The air fluid collection has decreased in size (pneumocephalus. 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 The ventricular system has decreased in size throughout. There is decreased pneumocephalus near the left frontal lobe.There is no new acute intracranial hemorrhage or evidence of acute territorial infarction. There is no significant midline shift or mass effect. The basal cisterns remain patent. The paranasal sinuses are clear.IMPRESSION: Decreased pneumocephalus associated with right frontoparietal cranioplastic changes. 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 Ventricular system has decreased in size throughout. There is no acute hemorrhage.This document has been electronically signed by Marin Mensah MD on 08/19/2020 10:02 PM Name Value Range Interpretation Code Description Data Alisson rce(s) Supporting Document(s) ID Date Data Source [id number] 08/19/2020 08:56:25 PM [facility] Name Value Range Interpretation Code Description Data Alisson rce(s) Supporting Document(s) Ammonia [Moles/volume] in Plasma 50 umol/L 16-60 [facility] Hemolyzed ID Date Data Source [id number] 08/19/2020 06:59:40 PM [facility] Name Value Range Interpretation Code Description Data Alisson rce(s) Supporting Document(s) Leukocytes [#/volume] in Blood by Automated count 8.5 10*3/uL 4-10 [facility] Erythrocytes [#/volume] in Blood by Automated count 4.93 10*6/uL 4.6- 6.1 [facility] Hemoglobin [Mass/volume] in Blood 13.1 g/dL 13.5-18 L [facility] Hematocrit [Volume Fraction] of Blood by Automated count 41.1 % 4 1-53 [facility] Erythrocyte mean corpuscular volume [Entitic volume] by Auto mated count 83.3 fL 80-96 [facility] Erythrocyte mean corpuscular hemoglobin [Entitic mass] by Automated count 26.6 pg 27-33 L [facility] Erythrocyte mean corpuscular hemoglobin concentration [Mass/volume] by Automated count 31.9 g/dL 32.0-36.0 L [facility] Erythrocyte distribution width [Ratio] by Automated count 16.6 % 11.5-14.5 H [facility] Platelets [#/volume] in Blood by Automated count 309 10*3/uL 150-400 [facility] ID Date Data Source [id number] 08/19/2020 07:03:34 PM [facility] Name Value Range Interpretation Code Description Data Alisson rce(s) Supporting Document(s) Albumin [Mass/volume] in Serum or Plasma by Bromocresol green (BCG) dye binding method 3.7 g/dL 3.5-5.2 [facility] Bilirubin.total [Mass/volume] in Serum or Plasma 0.2 mg/dL <1.2 [facility] Calcium [Mass/volume] in Serum or Plasma 9.7 mg/dL 8.6-10.0 [facility] Chloride [Moles/volume] in Serum or Plasma 95 mmol/L 98-107 L [facility] Creatinine [Mass/volume] in Serum or Plasma 0.64 mg/dL 0.70-1.20 L [facility] Glucose [Mass/volume] in Serum or Plasma 84 mg/dL 70-140 [facility] Alkaline phosphatase [Enzymatic activity/volume] in Serum or Plasma 86 U/L 40-129 [facility] Potassium [Moles/volume] in Serum or Plasma 4.8 mmol/L 3.4-5.1 [facility] Protein [Mass/volume] in Serum or Plasma 7.9 g/dL 6.4-8.3 [facility] Sodium [Moles/volume] in Serum or Plasma 133 mmol/L 136-145 L [facility] Aspartate aminotransferase [Enzymatic activity/volume] in Serum or Plasma 29 U/L <40 [facility] Urea nitrogen [Mass/volume] in Serum or Plasma 14 mg/dL 6-20 [facility] Osmolality of Serum or Plasma by calculation 276 mosm/kg 275-300 [facility] Creatinine/Urea nitrogen [Mass Ratio] in Serum or Plasma 21 [facility] Bicarbonate [Moles/volume] in Serum 29 mmol/L 22-29 [facility] Alanine aminotransferase [Enzymatic activity/volume] in Seru m or Plasma 7 U/L <41 [facility] Anion gap 3 in Serum or Plasma 8 mmol/L 8-15 [facility] Glomerular filtration rate/1.73 sq M pre dicted among non-blacks [Volume Rate/Area] in Serum or Plasma by Creatinine-based formula (MDRD) >6 0 [facility] Glomerular filtration rate/1.73 sq M pre dicted among blacks [Volume Rate/Area] in Serum or Plasma by Creatinine-based formula (MDRD) >60 [facility] ID Date Data Source [id number] 08/19/2020 07:03:34 PM [facility] Value Range Interpretation Code Description Data Alisson rce(s) Supporting Document(s) Valproate [Mass/volume] in Serum or Plasma 81 ug/ml 50-100 [facility] ID Date Data Source [id number] 08/19/2020 06:11:32 PM [facility] Value Range Interpretation Code Description Data Alisson rce(s) Supporting Document(s) Glucose [Mass/volume] in Capillary blood by Glucometer 89 mg/dL 70- 140 [facility] ID Date Data Source [id number] 08/18/2020 05:36:07 AM [facility] Value Range Interpretation Code Description Data Alisson rce(s) Supporting Document(s) Leukocytes [#/volume] in Blood by Automated count 5.4 10*3/uL 4-10 [facility] Erythrocytes [#/volume] in Blood by Automated count 4.86 10*6/uL 4.6- 6.1 [facility] Hemoglobin [Mass/volume] in Blood 12.9 g/dL 13.5-18 L [facility] Hematocrit [Volume Fraction] of Blood by Automated count 40.8 % 4 1-53 L [facility] Erythrocyte mean corpuscular volume [Entitic volume] by Auto mated count 84.0 fL 80-96 [facility] Erythrocyte mean corpuscular hemoglobin [Entitic mass] by Automated count 26.5 pg 27-33 L [facility] Erythrocyte mean corpuscular hemoglobin concentration [Mass/volume] by Automated count 31.5 g/dL 32.0-36.0 [facility] distribution width [Ratio] by Automated count 17.1 % 11.5-14.5 H [facility] Platelets [#/volume] in Blood by Automated count 252 10*3/uL 150-400 [facility] Differential cell count method - Blood [facility] Neutrophils/100 leukocytes in Blood by Automated count 44 % [facility] Lymphocytes/100 leukocytes in Blood by Automated count 37 % [facility] Monocytes/100 leukocytes in Blood by Automated count 16 % [facility] Eosinophils/100 leukocytes in Blood by Automated count 2 % [facility] Basophils/100 leukocytes in Blood by Automated count 1 % [facility] Neutrophils [#/volume] in Blood by Automated count 2.38 10*3/uL 1.8-7 .0 [facility] Lymphocytes [#/volume] in Blood by Automated count 1.99 10*3/uL 1.2-4 .0 [facility] Monocytes [#/volume] in Blood by Automated count 0.84 10*3/uL 0-0.8 H [facility] Eosinophils [#/volume] in Blood by Automated count 0.11 10*3/uL 0-0.5 [facility] Basophils [#/volume] in Blood by Automated count 0.04 10*3/uL 0-0.2 [facility] Nucleated erythrocytes/100 leukocytes [Ratio] in Blood by Automated count 0 /100{WBCs} 0-0 [facility] ID Date Data Source [id number] 08/18/2020 05:53:39 AM EST [facility] Name Value Range Interpretation Code Description Data Alisson rce(s) Supporting Document(s) Bicarbonate [Moles/volume] in Serum 27 mmol/L 22-29 [facility] Chloride [Moles/volume] in Serum or Plasma 97 mmol/L 98-107 L [facility] Creatinine [Mass/volume] in Serum or Plasma 0.64 mg/dL 0.70-1.20 L [facility] Glucose [Mass/volume] in Serum or Plasma 91 mg/dL 70-140 [facility] Potassium [Moles/volume] in Serum or Plasma 3.7 mmol/L 3.4-5.1 [facility] Sodium [Moles/volume] in Serum or Plasma 136 mmol/L 136-145 [facility] Urea nitrogen [Mass/volume] in Serum or Plasma 12 mg/dL 6-20 [facility] Anion gap 3 in Serum or Plasma 13 mmol/L 8-15 [facility] Osmolality of Serum or Plasma by calculation 282 mosm/kg 275-300 [facility] Creatinine/Urea nitrogen [Mass Ratio] in Serum or Plasma 18 [facility] Calcium [Mass/volume] in Serum or Plasma 9.5 mg/dL 8.6-10.0 [facility] Glomerular filtration rate/1.73 sq M pre dicted among non-blacks [Volume Rate/Area] in Serum or Plasma by Creatinine-based formula (MDRD) >6 0 [facility] Glomerular filtration rate/1.73 sq M pre dicted among blacks [Volume Rate/Area] in Serum or Plasma by Creatinine-based formula (MDRD) >60 [facility] ID Date Data Source [id number] 08/18/2020 05:53:39 AM [facility] Name Value Range Interpretation Code Description Data Alisson rce(s) Supporting Document(s) Magnesium [Mass/volume] in Serum or Plasma 1.9 mg/dL 1.6-2.6 [facility] ID Date Data Source [id number] 08/14/2020 09:31:26 AM [facility] Name Value Range Interpretation Code Description Data Alisson rce(s) Supporting Document(s) Discharge Summary [facility] XMFVYw3kKfSKJsJw03/GTNsiCPXyr6HbFDfdMQg4UXylJUYuL7YiBYG2xW7lUUE4HIyMQyGoXeHeAFJp davies campus [file] AgICAgICAgICAgICAgICAgICAgICAgICAgICAgICAg ICAgICAgICAgICAgICAgICAgICANCiAgICAgICAgICAgICAgICAgICAgICAgICAgICAgICAgICAgICAg ICAgICAgICAgICAgICAgICAgICAgICAgICAgICAgICAgICAgICAgICAgICAgICAgICAgICAgICAgICAg ICANCiAgICAgICAgICAgICAgICAgICAgICAgICAgIC AgICAgICAgICAgICAgICAgICAgICAgICAgICAgICAgICAgICAgICAgICAgICAgICAgICAgICAgICAgIC AgICAgICAgICAgICANCiAgICAgICAgICAgICAgICAgICAgICAgICAgICAgICAgICAgICAgICAgICAgIC AgICAgICAgICAgICAgICAgICAgICAgICAgICAgICAg ICAgICAgICAgICAgICAgICAgICAgICANCiAgICAgICAgICAgICAgICAgICAgICAgICAgICAgICAgICAg ICAgICAgICAgICAgICAgICAgICAgICAgICAgICAgICAgICAgICAgICAgICAgICAgICAgICAgICAgICAg ICAgICANCiAgICAgICAgICAgICAgICAgICAgICAgIC AgICAgICAgICAgICAgICAgICAgICAgICAgICAgICAgICAgICAgICAgICAgICAgICAgICAgICAgICAgIC AgICAgICAgICAgICAgICANCiAgICAgICAgICAgICAgICAgICAgICAgICAgICAgICAgICAgICAgICAgIC AgICAgICAgICAgICAgICAgICAgICAgICAgICAgICAg ICAgICAgICAgICAgICAgICAgICAgICAgICANCiAgICAgICAgICAgICAgICAgICAgICAgICAgICAgICAg ICAgICAgICAgICAgICAgICAgICAgICAgICAgICAgICAgICAgICAgICAgICAgICAgICAgICAgICAgICAg ICAgICAgICANCiAgICAgICAgICAgICAgICAgICAgIC AgICAgICAgICAgICAgICAgICAgICAgICAgICAgICAgICAgICAgICAgICAgICAgICAgICAgICAgICAgIC AgICAgICAgICAgICAgICAgICANCiAgICAgICAgICAgICAgICAgICAgICAgICAgICAgICAgICAgICAgIC AgICAgICAgICAgICAgICAgICAgICAgICAgICAgICAg ICAgICAgICAgICAgICAgICAgICAgICAgICAgICANCjw/bWKwB3bzeMKsgpF7J9mlWc5TMy5EHZ1rw9Ci OVOlZTrxjkIrPbaAHzExKSZmPvwSFkg8JHwxEC5LzXMeJ3BsK2XvDJylFO0GBHQoAYFgzRRzUJEcOLUf IiO5XOQfOWqhLM1NzICfBMxvGABbGHUhUnMpJLAbMI NgWRGoCZFjYTMWUXGwHAJgRlOjYUNjASRnKYjaWGRLWPB0TEIiNfIeGKRoRABiOkDuUQWGGNX1XDTmRk BgSkXoABViDalfAOXFEIAtDXVzBqLdWoEkZDUxXnVzEQDHBTK9GGQrJbTqVOhnFS0Pm4WjuRVjHe7VCq 6OPvYdLZ9rko2ASgIaXEQjAaqXLue7DKxwKX5GdRQe xXH3HZNtCAIFSwVxS3upi7UpLmRxEBRYZNvjQY5Zl3EbaIBmCBa+Yf8KKI1xy6OgGAq4MIIoQQ2nkp0M IGoPCeSrZ7QvmPhpCDSln7MnNDNhDDMCqD5uGQZ2YAT6AA4yM5jjseTCwRJ2a61mOWAKWYHvjRJkKK0e BY1hPYEjKVDkAvR0GGRYPG1AIJKlBAMqnSShZRAjBD SYXX3YRDceZKY1AKPngvSxiOReLWzmCD2LWXGiljOjYbWhNFGZDZs+Wc7ERI8hs2WkPHi9LpXgUI5uam 7CHDuGYgQvO8N6jJHbL4K2ZHhhJq1ZTGWqQCTzEPkxYKLEDJciGO1ZDG4rsvB3NK9IwINxEBEsOMGenU BeRXt3D29huZWtYXzpZY4LIEJ+Patricia+Wn1HDELbUENg HYWvDwYyTGFBBrBaC7BsI8VEf9XrV1WnJD03yQwudkEuMKvyST5MDC7xLQHiWXCFRR9IwFDtjE6yvoO8 RQHhPOTYWcBcN79cjQYiANOmWRK4IRFiBk7CLICeO4GaesHrdHfeqnCzITKpHNOXWX1SCCpsgkNrlSDu mEecJR77mOjwXF7ALv7LFyVfNR8fpj1GtBRhEv5BQM O7Gy9EVCGmDWZcQEPbXEH8JUGzSxDtXRleGOYdIVOlILT8KXFjGGMcMW9YPcEwBFNfEyY2PmUmUMWbAN Lxak8NNREzECO1TacwOaKtPPTvUHLaJHzgSHMgGRHsHOU5DPXdXPDtRX4FLoTbNEUvWAZnXyKmWDNdKI Ycfi9RMTYzJWAtEwY6GVKtBTDbAIEjIEchDZCtRHU4 FYBiMGDeZKHyTR8CQiDbTSQeKSybYJKbCUHaNRPnub2TITJqAONqISM6JdEkBBMmGDOmBGlsWCDsFKQn Ubk2SRXdKNEyTD4PNjQsMZOgDFI3PVccOQOiSBTnjf7NJWXdILEaOTljQtHkYVZfODKrERdvNRSdZKL0 Pea2KNPbHQUxWI9TYgBdKZLjPZc7AIWwCKOqBAMhgz 1SWOJrSMJvGvZ1VEMzIYKyUQFkORyjZRCjVSTpEXXfBLVfMNMcSK7LOoWqVBDiGbG6FaUlVILgAAYfyy 4GZWSdGAClUWyzPUMdUWRkBDZoTGtkYUOuDJG7XTW5RCKgOSDcHY0ICpMrNOHvGibkRBXgHAFnJOFacn 4HMZMiKKCuMmPgNJZnVIKgJDOiGSyyOPBbYQKmQIV7 VYEvQJKaJW2MHgOdNXLvBbkrLRUfJJXrOKPzpa5HRJLiRDRhEeWtLmOfWARcHWBdXHpqVQGhVJWgKQK1 DGLpRJDnYQ3OCjPiBEFnUEV2AtEcNVVvEMNafc3QQEFuPAD4XTH4HIOpYCZqWZXgJLxuYELdGHP8Vrha ZVYkMRRdLF2OMmSeLRVkTVg3UOhxFKIsABQkxi2FQA YoKTO5ACv6ABPpYLAyVYEcGQgoVINhOIQyODj3IDTcLRKyVA4MNrIuJSKqZAIrKJOfERYnZYFwjf7SJJ CbIRN1Rbh6YzZwRFRoCNUiNNlsXSGlSNB5GVi0ASPfXYMvKL7MUsPvSJCgDEG4YnGfXSSlIAHiyz6QLD KtUIU3AwS4TAJdEDLoBVGiWAfnWFWdGUT0CfY5QXSn DFHoKG3YBgIxTVEkXRh7FDBrHMLvDHJgnw7SKWDyVMC1UBAjMcFbATEbWVLcVVtxLZFrOZLcWyT5MTJd JWWiZJ2FKpQnTBIaCmM7SNCaZUVjDCZtlf6GWBEdGIF3PTv2WKTwSVGtVQOiAXhgNAEmJBRrNDGaBYPp SAAqMX7RNwWaCYBaRsFxCXAnOZNkUXKpkv6YQULnRN K0QhNlJOTmBGHxQSBsOQmnZDFlGMLyWnl9LSRfNTBcTS4UIbBkZWQzKsX4XNOmSICuLBKkam5BPZPrAM S6DCP6LBHkEUBmELVwNVpaSGLnRSN8OkVfJEFfUQQoJI3KYkDbKIWkJaA9SuLeJZSpFZSjfq8KOUIeWX T3UDA4KoCyMQLbHWQmJVbaEIKsYOdyIVM6HZGcPIFn AA0BUqWzSHLoRrSkESInELSeILVfbd3OXGOcBFO4AKK1YtNoXOUhGPWzAKwnVLGtXRcaSfNtRSCsHCDo VO7YVnWjGARrTsO9UHvpRRTiSREcns5TNITxWJU3BNpxSYAvKXYiWNOjWDwnSECrFXctXVArMRLxDFVm JT1UJpAsLTSeBsFeLtJhUXUcVTQwbq2HJBTwGAD7Pi xyGKNbXLKvNHXvTEhmHKGsKVnwXGndLBPqUCBgHB4DHzQnBGVqCeZiPvHcAPAaUGDsjf5ZvXGdvXoqsl 1JPQrPJv3KnHlkEACvTAkiBu4tjFN6XjExSIWXMv8FucFlVFTsFQZJSCpiBRIaVEFfFHRoG0HcQjx7Cc OdGeBvNWo0KGt0YrR9RAMnNsWdDlW1UCB0KOJ7SITj NzZjNTJmZmRkODVhODZiZTRlYjMzMTM+IG5hLCt+Et3Ev5AzliO5jjRmQYe1XEC7NR7WMVWYT2YMDb== ID Date Data Source [id number] 08/14/2020 04:29:10 AM [facility] Name Value Range Interpretation Code Description Data Alisson rce(s) Supporting Document(s) Ammonia [Moles/volume] in Plasma 54 umol/L 16-60 [facility] ID Date Data Source [id number] 08/14/2020 04:11:18 AM EST [facility] Name Value Range Interpretation Code Description Data Alisson rce(s) Supporting Document(s) Leukocytes [#/volume] in Blood by Automated count 5.9 10*3/uL 4-10 [facility] Erythrocytes [#/volume] in Blood by Automated count 4.74 10*6/uL 4.6- 6.1 [facility] Hemoglobin [Mass/volume] in Blood 12.8 g/dL 13.5-18 L [facility] Hematocrit [Volume Fraction] of Blood by Automated count 40.3 % 4 1-53 L [facility] Erythrocyte mean corpuscular volume [Entitic volume] by Auto mated count 84.9 fL 80-96 [facility] Erythrocyte mean corpuscular hemoglobin [Entitic mass] by Automated count 27.0 pg 27-33 [facility] Erythrocyte mean corpuscular hemoglobin concentration [Mass/volume] by Automated count 31.8 g/dL 32.0-36.0 [facility] width [Ratio] by Automated count 17.0 % 11.5-14.5 H [facility] Platelets [#/volume] in Blood by Automated count 248 10*3/uL 150-400 [facility] Differential cell count method - Blood [facility] Neutrophils/100 leukocytes in Blood by Automated count 39 % [facility] Lymphocytes/100 leukocytes in Blood by Automated count 37 % [facility] Monocytes/100 leukocytes in Blood by Automated count 18 % [facility] Eosinophils/100 leukocytes in Blood by Automated count 5 % [facility] Basophils/100 leukocytes in Blood by Automated count 1 % [facility] Neutrophils [#/volume] in Blood by Automated count 2.39 10*3/uL 1.8-7 .0 [facility] Lymphocytes [#/volume] in Blood by Automated count 2.16 10*3/uL 1.2-4 .0 [facility] Monocytes [#/volume] in Blood by Automated count 1.03 10*3/uL 0-0.8 H [facility] Eosinophils [#/volume] in Blood by Automated count 0.26 10*3/uL 0-0.5 [facility] Basophils [#/volume] in Blood by Automated count 0.04 10*3/uL 0-0.2 [facility] Nucleated erythrocytes/100 leukocytes [Ratio] in Blood by Automated count 0 /100{WBCs} 0-0 [facility] ID Date Data Source [id number] 08/14/2020 04:27:23 AM [facility] Name Value Range Interpretation Code Description Data Alisson rce(s) Supporting Document(s) Bicarbonate [Moles/volume] in Serum 27 mmol/L 22-29 [facility] Chloride [Moles/volume] in Serum or Plasma 97 mmol/L 98-107 L [facility] Creatinine [Mass/volume] in Serum or Plasma 0.61 mg/dL 0.70-1.20 L [facility] Glucose [Mass/volume] in Serum or Plasma 105 mg/dL 70-140 [facility] Potassium [Moles/volume] in Serum or Plasma 4.3 mmol/L 3.4-5.1 [facility] Sodium [Moles/volume] in Serum or Plasma 134 mmol/L 136-145 L [facility] Urea nitrogen [Mass/volume] in Serum or Plasma 12 mg/dL 6-20 [facility] Anion gap 3 in Serum or Plasma 10 mmol/L 8-15 [facility] Osmolality of Serum or Plasma by calculation 279 mosm/kg 275-300 [facility] Creatinine/Urea nitrogen [Mass Ratio] in Serum or Plasma 20 [facility] Calcium [Mass/volume] in Serum or Plasma 9.3 mg/dL 8.6-10.0 [facility] Glomerular filtration rate/1.73 sq M pre dicted among non-blacks [Volume Rate/Area] in Serum or Plasma by Creatinine-based formula (MDRD) >6 0 [facility] Glomerular filtration rate/1.73 sq M pre dicted among blacks [Volume Rate/Area] in Serum or Plasma by Creatinine-based formula (MDRD) >60 [facility] ID Date Data Source [id number] 08/14/2020 04:27:23 AM [facility] Name Value Range Interpretation Code Description Data Alisson rce(s) Supporting Document(s) Magnesium [Mass/volume] in Serum or Plasma 1.8 mg/dL 1.6-2.6 [facility] ID Date Data Source [id number] 08/13/2020 08:36:50 PM [facility] Name Value Range Interpretation Code Description Data Alisson rce(s) Supporting Document(s) Osmolality of Urine 475 mosm/kg 300-1000 [facility] ID Date Data Source [id number] 08/13/2020 08:52:40 PM [facility] Name Value Range Interpretation Code Description Data Alisson rce(s) Supporting Document(s) Creatinine [Mass/volume] in Urine 113.0 mg/dl [facility] ID Date Data Source [id number] 08/13/2020 08:52:40 PM [facility] Name Value Range Interpretation Code Description Data Alisson rce(s) Supporting Document(s) Sodium [Moles/volume] in Urine 66 mmol/L [facility] ID Date Data Source [id number] 08/13/2020 04:17:43 PM [facility] Name Value Range Interpretation Code Description Data Alisson rce(s) Supporting Document(s) Operative [facility] TWELIe9lWnKYBqNs86/BVQetIHJqv0XmEOnhVJr2TVioFZVoG8OpBGG8rC0jOPH5TOiFUmPfAwKsLXPl lbm [file] ID Date Data Source [id number] 08/12/2020 08:58:39 AM [facility] Name Value Range Interpretation Code Description Data Alisson rce(s) Supporting Document(s) Thyroxine (T4) free [Mass/volume] in Serum or Plasma 1.08 ng/dL 0.93- 1.70 [facility] ID Date Data Source [id number] 08/12/2020 08:58:39 AM [facility] Name Value Range Interpretation Code Description Data Alisson rce(s) Supporting Document(s) Thyrotropin [Units/volume] in Serum or Plasma 3.880 u[IU]/mL 0.270-4. 200 [facility] ID Date Data Source [id number] 08/12/2020 08:58:39 AM [facility] Name Value Range Interpretation Code Description Data Alisson rce(s) Supporting Document(s) Bicarbonate [Moles/volume] in Serum 30 mmol/L 22-29 H [facility] Chloride [Moles/volume] in Serum or Plasma 96 mmol/L 98-107 L [facility] Creatinine [Mass/volume] in Serum or Plasma 0.53 mg/dL 0.70-1.20 L [facility] Glucose [Mass/volume] in Serum or Plasma 95 mg/dL 70-140 [facility] Potassium [Moles/volume] in Serum or Plasma 3.9 mmol/L 3.4-5.1 [facility] Sodium [Moles/volume] in Serum or Plasma 132 mmol/L 136-145 L [facility] Urea nitrogen [Mass/volume] in Serum or Plasma 12 mg/dL 6-20 [facility] Anion gap 3 in Serum or Plasma 6 mmol/L 8-15 L [facility] Osmolality of Serum or Plasma by calculation 274 mosm/kg 275-300 [facility] Creatinine/Urea nitrogen [Mass Ratio] in Serum or Plasma 23 [facility] Calcium [Mass/volume] in Serum or Plasma 8.6 mg/dL 8.6-10.0 [facility] Glomerular filtration rate/1.73 sq M pre dicted among non-blacks [Volume Rate/Area] in Serum or Plasma by Creatinine-based formula (MDRD) >6 0 [facility] Glomerular filtration rate/1.73 sq M pre dicted among blacks [Volume Rate/Area] in Serum or Plasma by Creatinine-based formula (MDRD) >60 [facility] ID Date Data Source [id number] 08/12/2020 12:46:28 AM [facility] Name Value Range Interpretation Code Description Data Alisson rce(s) Supporting Document(s) Discharge Summary [facility] IMIYFe3iHmSEMqOn95/TYCzkZKRew2PzDWpsBBx8TBqaJTKaA9VmLZK5uO5dJFP8UWaBEfTbFjYjJCGr [facility] [file] DrNnCiRpAePK3hUYXGJh7+PVlnrPAjgCloPBXABnAaRiE2BNlbDJDFMv2R ID Date Data Source [id number] 08/14/2020 01:06:48 PM [facility] Name Value Range Interpretation Code Description Data Alisson rce(s) Supporting Document(s) Valproate Free [Mass/volume] in Serum or Plasma [facility] (NOTE)Quantity was not sufficient for an alysis. Detection Limit = 0.5Performed At: [facility] [address] [id number] Sanjai MD Ph:[id number] ID Date Data Source [id number] 08/11/2020 08:11:44 PM [facility] Value Range Interpretation Code Description Data Alisson rce(s) Supporting Document(s) Color of Urine [facility] Clarity of Urine [facility] Specific gravity of Urine by Refractometry automated 1.013 1.003 -1.030 [facility] pH of Urine by Automated test strip 8.0 5.0-8.0 [facility] Protein [Mass/volume] in Urine by Automated test strip Neg [facility] Glucose [Mass/volume] in Urine by Automated test strip Neg [facility] Ketones [Mass/volume] in Urine by Automated test strip Neg [facility] Bilirubin.total [Presence] in Urine by Automated test strip Negative [facility] Hemoglobin [Presence] in Urine by Automated test strip Neg [facility] Leukocyte esterase [Presence] in Urine by Automated test strip Negative [facility] Nitrite [Presence] in Urine by Automated test strip Negati [facility] Leukocytes [#/area] in Urine sediment by Automated count 0 /HPF 0 -5 [facility] Erythrocytes [#/area] in Urine sediment by Automated count 0 /HPF 0-3 [facility] Service comment [facility] ID Date Data Source [id number] 08/11/2020 08:01:44 PM [facility] Name Value Range Interpretation Code Description Data Alisson rce(s) Supporting Document(s) Valproate [Mass/volume] in Serum or Plasma 67 ug/ml 50-100 [facility] ID Date Data Source [id number] 08/11/2020 07:32:07 AM [facility] Value Range Interpretation Code Description Data Alisson rce(s) Supporting Document(s) Leukocytes [#/volume] in Blood by Automated count 6.1 10*3/uL 4-10 [facility] Erythrocytes [#/volume] in Blood by Automated count 4.84 10*6/uL 4.6- 6.1 [facility] Hemoglobin [Mass/volume] in Blood 13.0 g/dL 13.5-18 L [facility] Hematocrit [Volume Fraction] of Blood by Automated count 41.0 % 4 1-53 [facility] Erythrocyte mean corpuscular volume [Entitic volume] by Auto mated count 84.5 fL 80-96 [facility] Erythrocyte mean corpuscular hemoglobin [Entitic mass] by Automated count 26.9 pg 27-33 L [facility] Erythrocyte mean corpuscular hemoglobin concentration [Mass/volume] by Automated count 31.8 g/dL 32.0-36.0 [facility] E[facility]th[facility] distribution width [Ratio] by Automated count 17.4 % 11.5-14.5 [facility] Platelets [#/volume] in Blood by Automated count 236 10*3/uL 150-400 [facility] Differential cell count method - Blood [facility] Neutrophils/100 leukocytes in Blood by Automated count 40 % [facility] Lymphocytes/100 leukocytes in Blood by Automated count 38 % [facility] Monocytes/100 leukocytes in Blood by Automated count 16 % [facility] Eosinophils/100 leukocytes in Blood by Automated count 5 % [facility] Basophils/100 leukocytes in Blood by Automated count 1 % [facility] Neutrophils [#/volume] in Blood by Automated count 2.48 10*3/uL 1.8-7 .0 [facility] Lymphocytes [#/volume] in Blood by Automated count 2.34 10*3/uL 1.2-4 .0 [facility] Monocytes [#/volume] in Blood by Automated count 0.96 10*3/uL 0-0.8 H [facility] Eosinophils [#/volume] in Blood by Automated count 0.30 10*3/uL 0-0.5 [facility] Basophils [#/volume] in Blood by Automated count 0.03 10*3/uL 0-0.2 [facility] Nucleated erythrocytes/100 leukocytes [Ratio] in Blood by Automated count 0 /100{WBCs} 0-0 [facility] ID Date Data Source [id number] 08/11/2020 08:00:21 AM [facility] Name Value Range Interpretation Code Description Data Alisson rce(s) Supporting Document(s) Bicarbonate [Moles/volume] in Serum 27 mmol/L 22-29 [facility] Chloride [Moles/volume] in Serum or Plasma 97 mmol/L 98-107 L [facility] Creatinine [Mass/volume] in Serum or Plasma 0.55 mg/dL 0.70-1.20 L [facility] Glucose [Mass/volume] in Serum or Plasma 102 mg/dL 70-140 [facility] Potassium [Moles/volume] in Serum or Plasma 4.1 mmol/L 3.4-5.1 [facility] Sodium [Moles/volume] in Serum or Plasma 133 mmol/L 136-145 L [facility] Urea nitrogen [Mass/volume] in Serum or Plasma 10 mg/dL 6-20 [facility] Anion gap 3 in Serum or Plasma 9 mmol/L 8-15 [facility] Osmolality of Serum or Plasma by calculation 275 mosm/kg 275-300 [facility] Creatinine/Urea nitrogen [Mass Ratio] in Serum or Plasma 18 [facility] Calcium [Mass/volume] in Serum or Plasma 9.2 mg/dL 8.6-10.0 [facility] Glomerular filtration rate/1.73 sq M pre dicted among non-blacks [Volume Rate/Area] in Serum or Plasma by Creatinine-based formula (MDRD) >6 0 [facility] Glomerular filtration rate/1.73 sq M pre dicted among blacks [Volume Rate/Area] in Serum or Plasma by Creatinine-based formula (MDRD) >60 [facility] ID Date Data Source [id number] 08/11/2020 08:00:21 AM [facility] Name Value Range Interpretation Code Description Data Alisson rce(s) Supporting Document(s) Magnesium [Mass/volume] in Serum or Plasma 1.7 mg/dL 1.6-2.6 [facility] ID Date Data Source [id number] 08/08/2020 12:43:56 PM [facility] Name Value Range Interpretation Code Description Data Alisson rce(s) Supporting Document(s) [facility] GKWAKh2rXzBTJgXs70/NWGvfWPXlm8NvCTnoTFm4NMqyXMRvT8FpZCQ9yK2jFWD8EFiXTpNwNwZsWTX8 [facility] [file] AgICAgICAgICAgICAgICAgICAgICAgICAgICAgICAgICAgICAgICAgICAgICAgICAgICAgICAgICAgIC AgICAgICAgICAgICAgICANCiAgICAgICAgICAgICAgICAgICAgICAgICAgICAgICAgICAgICAgICAgIC AgICAgICAgICAgICAgICAgICAgICAgICAgICAgICAg ICAgICAgICAgICAgICAgICAgICAgICAgICANCiAgICAgICAgICAgICAgICAgICAgICAgICAgICAgICAg ICAgICAgICAgICAgICAgICAgICAgICAgICAgICAgICAgICAgICAgICAgICAgICAgICAgICAgICAgICAg ICAgICAgICANCiAgICAgICAgICAgICAgICAgICAgIC AgICAgICAgICAgICAgICAgICAgICAgICAgICAgICAgICAgICAgICAgICAgICAgICAgICAgICAgICAgIC AgICAgICAgICAgICAgICAgICANCiAgICAgICAgICAgICAgICAgICAgICAgICAgICAgICAgICAgICAgIC AgICAgICAgICAgICAgICAgICAgICAgICAgICAgICAg ICAgICAgICAgICAgICAgICAgICAgICAgICAgICANCiAgICAgICAgICAgICAgICAgICAgICAgICAgICAg ICAgICAgICAgICAgICAgICAgICAgICAgICAgICAgICAgICAgICAgICAgICAgICAgICAgICAgICAgICAg ICAgICAgICAgICANCiAgICAgICAgICAgICAgICAgIC AgICAgICAgICAgICAgICAgICAgICAgICAgICAgICAgICAgICAgICAgICAgICAgICAgICAgICAgICAgIC AgICAgICAgICAgICAgICAgICAgICANCiAgICAgICAgICAgICAgICAgICAgICAgICAgICAgICAgICAgIC AgICAgICAgICAgICAgICAgICAgICAgICAgICAgICAg ICAgICAgICAgICAgICAgICAgICAgICAgICAgICAgICANCiAgICAgICAgICAgICAgICAgICAgICAgICAg ICAgICAgICAgICAgICAgICAgICAgICAgICAgICAgICAgICAgICAgICAgICAgICAgICAgICAgICAgICAg ICAgICAgICAgICAgICANCiAgICAgICAgICAgICAgIC AgICAgICAgICAgICAgICAgICAgICAgICAgICAgICAgICAgICAgICAgICAgICAgICAgICAgICAgICAgIC AgICAgICAgICAgICAgICAgICAgICAgICANCjw/uALmH4fpvVLckhU9D3rlMq4TFt7SMG0nv4FfOHCfGI ltyiSqBwrJLnDfPRCmUxzAMxv2UBlsWH3YqOZxV4Ub C2CfRKwvDC6OKUZeHIEapXBuLMRkIRZsBrI9GTMkCZtzTC7RxUOuALsdQXDjNXNqJxGoWTXqIBNjGYBj OJNcEHAKDI6EFmOzA7AbfS14WAYIJb3+COpmxsPmMwmLDxZ5WIMwa2KfKPy9IR3QTUTxTttne7MbUdZc HTXRFEhcYB7JWNY4JIV8NRHqKo7QJVCmE651zfBbDS 7UMk4EXkPzBV4mda2BTvFlWIYvLnlFMjh1BJnkNL0VkFFmISiUy01ukXw2gbChpUNBgTCylINouJEiFW WQUDcyiETbnGthBz1jCJZkZRTcTy5wKFWdVXMtRvP3RNVHKR9LFIMyCYZthGYyQOFwPRWLHE2BUBlkQL R5JGHgbxQdzEBmEDieAG0CGQTjwvLkZdGzWATPGOy+ Mn6PBV8xh7MzKAzdMgAuKU9sxz9QBZmQJmQqP8V5pIXyV4X6HQtqRi7FANYwQURbQzSzBDJUEOurLV0Q DT7wbqQ4NJ3QqOCfOLWzQDWwjRJrIVb3O17hvTHdSDjiLW3IOSI+Patricia+Bi7ZUYHbLVSwEOZbLfVwXPFQ JdYvZ0FxV4IKa8IfN3ThJE41aWtaaoSrUPswTR7FKM 8iLWLuCWVYBI1RzRFqeJ7uywNzBLYgXNCCDfLaM96wgKSzWCJyZQE5XNQqZx9MWJQdR0ChjkCpoNghgc FhOQOyFMYGUW9QJAkhujHavAPgnMahSY43lDiaJC7PRm5TVjDlUE5blt5ZmATePx9AJXHpIG6HUOXqXU PkQNYbCRW0SUUiJtLfWLumEMAbMAOpTLV7NUFfTNGu DC0CSjOlJBQpGaC0XynaBCAfRPMzjh4LKRBuWMFaGuK6RlRjWPAdGQJrIGnxFBHvKNTbMAQ8GJHxDXMq JS8REfKpZDPmFUX2MEPrLTXzPZSwvc9ZAMHiVHYhRYv3LKVlNCHuREGiYItnNRYrVMG0OYDoSGTnNXJr PN1WTuLfICLeXVmpFKpuDLNtBXChpx0RIACtEPCkYz DdNFIrNFCzJINeVIckNPPdUPUzNqU5UVDsHYRwLX3ZFlStSSRyQMD0DbvfARTgAXIvxd0NEHDeRLSmIq O0FARrZQYzPSOfJIswPYCfHXN5VOO2OPDuGABbSJ7HRlBsOXAvYFcdGCKsMKCgEAJfoa8TEWGjTTRkUB B4IWMfVQMfDDNwBLvqYBUhVJZ1LqP2MPZgANOdED5M ZuSeYJTgIYb5ACMfFFZqGRFdgk7HPBZhOEUgUXsnADBmDNRtUZZaSFvnTLEdDNN2FYbhGPRbRZPrAI4I HhBfKIKtNgH3CRhpWMIuMVMxwv9OCPPzCLPwGJNvPKDcUCZeDCPlKIniHZPmBEB4AaX5JWXvWWWjYY9Y CgHmEKWrOoO8HTNkMGYdLCSmml3GKQUuQJWqQEfzRn NkJYCbSMYoDRbkVDKjVFN2ZzL5EIPbFGPvVA5KHsZpBLMkXwb2IfEgYGSsHSTbjh1WNYIkOUOvXbG3AK PlHDVkFJKzUIw9ozTbiQNaSQw2ZC8QJ7MlsgXsUlrDLo4Kq779HNZ0OHKbPn5AH5oaAg2zWUUrTVQSUe 4VVUx4GMXfR2WpMZGqGNYnIER1UHG4IJJ3KMAlOEGf YWQwNDg+KDpyYtTnAMJ0OTE3DMWnHsu7Pqn9FUecJCG7JgVjNFU0PW5sHRUZBp1+DQpzdGFydHhyZWYN BvC6ZGX3JYpwWJEWTr6L ID Date Data Source [id number] 08/07/2020 08:05:42 [facility] Name Value Range Interpretation Code Description Data Alisson rce(s) Supporting Document(s) Operative Note [facility] HVSWMu1sSgBFIvJw37/DMTpfDKThv9CvZXakMGc4EAcgBRViF3CsSVI1kO1dUDV3JAbMJhArHbOpPXL6 lbm [file] 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+/0OkPVbFE07/Uz5A+WtPI4AGZtwc68BZi/+1iNn [file] MDk+EH9zXOw+Fr9Op3MzmcY3cgUtEApaBZi1FC5VIVHPZ9MRBj== ID Date Data Source [id number] 08/07/2020 07:21:25 AM [facility] Name Value Range Interpretation Code Description Data Alisson rce(s) Supporting Document(s) Leukocytes [#/volume] in Blood by Automated count 6.0 10*3/uL 4-10 [facility] Erythrocytes [#/volume] in Blood by Automated count 4.59 10*6/uL 4.6- 6.1 L [facility] Hemoglobin [Mass/volume] in Blood 12.3 g/dL 13.5-18 L [facility] Hematocrit [Volume Fraction] of Blood by Automated count 38.8 % 4 1-53 L [facility] Erythrocyte mean corpuscular volume [Entitic volume] by Auto mated count 84.6 fL 80-96 [facility] Erythrocyte mean corpuscular hemoglobin [Entitic mass] by Automated count 26.9 pg 27-33 L [facility] Erythrocyte mean corpuscular hemoglobin concentration [Mass/volume] by Automated count 31.8 g/dL 32.0-36.0 [facility] E[facility] distribution width [Ratio] by Automated count 17.7 % 11.5-14.5 H [facility] Platelets [#/volume] in Blood by Automated count 158 10*3/uL 150-400 [facility] Differential cell count method - Blood [facility] Neutrophils/100 leukocytes in Blood by Automated count 47 % [facility] Lymphocytes/100 leukocytes in Blood by Automated count 33 % [facility] Monocytes/100 leukocytes in Blood by Automated count 16 % [facility] Eosinophils/100 leukocytes in Blood by Automated count 3 % [facility] Basophils/100 leukocytes in Blood by Automated count 1 % [facility] Neutrophils [#/volume] in Blood by Automated count 2.77 10*3/uL 1.8-7 .0 [facility] Lymphocytes [#/volume] in Blood by Automated count 1.99 10*3/uL 1.2-4 .0 [facility] Monocytes [#/volume] in Blood by Automated count 0.96 10*3/uL 0-0.8 H [facility] Eosinophils [#/volume] in Blood by Automated count 0.19 10*3/uL 0-0.5 [facility] Basophils [#/volume] in Blood by Automated count 0.04 10*3/uL 0-0.2 [facility] Nucleated erythrocytes/100 leukocytes [Ratio] in Blood by Automated count 0 /100{WBCs} 0-0 [facility] ID Date Data Source [id number] 08/07/2020 08:36:38 AM [facility] Name Value Range Interpretation Code Description Data Alisson rce(s) Supporting Document(s) Albumin [Mass/volume] in Serum or Plasma by Bromocresol green (BCG) dye binding method 3.0 g/dL 3.5-5.2 [facility] Bilirubin.total [Mass/volume] in Serum or Plasma 0.2 mg/dL <1.2 [facility] Calcium [Mass/volume] in Serum or Plasma 8.6 mg/dL 8.6-10.0 [facility] Chloride [Moles/volume] in Serum or Plasma 103 mmol/L 98-107 [facility] Creatinine [Mass/volume] in Serum or Plasma 0.46 mg/dL 0.70-1.20 L [facility] Glucose [Mass/volume] in Serum or Plasma 76 mg/dL 70-140 [facility] Alkaline phosphatase [Enzymatic activity/volume] in Serum or Plasma 96 U/L 40-129 [facility] Potassium [Moles/volume] in Serum or Plasma 3.6 mmol/L 3.4-5.1 [facility] Protein [Mass/volume] in Serum or Plasma 6.7 g/dL 6.4-8.3 [facility] Sodium [Moles/volume] in Serum or Plasma 139 mmol/L 136-145 [facility] Aspartate aminotransferase [Enzymatic activity/volume] in Serum or Plasma 12 U/L <40 [facility] Urea nitrogen [Mass/volume] in Serum or Plasma 5 mg/dL 6-20 L [facility] Osmolality of Serum or Plasma by calculation 284 mosm/kg 275-300 [facility] Creatinine/Urea nitrogen [Mass Ratio] in Serum or Plasma 11 [facility] Bicarbonate [Moles/volume] in Serum 28 mmol/L 22-29 [facility] Alanine aminotransferase [Enzymatic activity/volume] in Serum or Pl asma <41 [facility] Anion gap 3 in Serum or Plasma 8 mmol/L 8-15 [facility] Glomerular filtration rate/1.73 sq M pre dicted among non-blacks [Volume Rate/Area] in Serum or Plasma by Creatinine-based formula (MDRD) >6 0 [facility] Glomerular filtration rate/1.73 sq M pre dicted among blacks [Volume Rate/Area] in Serum or Plasma by Creatinine-based formula (MDRD) >60 [facility] ID Date Data Source [id number] 08/07/2020 08:36:38 AM [facility] Name Value Range Interpretation Code Description Data Alisson rce(s) Supporting Document(s) Magnesium [Mass/volume] in Serum or Plasma 1.7 mg/dL 1.6-2.6 [facility] ID Date Data Source [id number] 08/07/2020 08:36:38 AM [facility] Name Value Range Interpretation Code Description Data Alisson rce(s) Supporting Document(s) Phosphate [Mass/volume] in Serum or Plasma 3.5 mg/dL 2.5-4.5 [facility] ID Date Data Source [id number] 08/06/2020 04:58:43 PM [facility] Value Range Interpretation Code Description Data Alisson rce(s) Supporting Document(s) History and Physical [facility] YNPNGs6qVdLHXaTi64/RWIgfWSQfx0CiMBhoASk5MBkrUNFpR0JjILU3dD2xGGO1IMwKZlFjHcZvQEM7 lbm [file] 9wogyaHkWNAC8ehsLyY5jOm04rf8n6aP5tS5W4/[employer] [file] ICAgICAgICAgICAgICAgICAgICAgICAgICAgICAgIC NsPLRqKUJyNDXrDTIfCG9DEBCyANGxHVVsDMCsMCNxZUVjIZCbMRLpLMVuFCPhPLXhAKIdGBTqXTMdHN GrRXOtHPCgRBGpJKGmFGJlQIBqLPSjAGXvNCKaNPExPKMlGXJuRLUuOPSzFCSlDFUdLDOiUBPkCO6YUB AgICAgICAgICAgICAgICAgICAgICAgICAgICAgICAg ICAgICAgICAgICAgICAgICAgICAgICAgICAgICAgICAgICAgICAgICAgICAgICAgICAgICAgICAgICAg RIOrEDBxVA1WQFKkGKTvCYShNRCcPGYdSMGdBPXrAWJfCQNyYQRbHMZqZIKaRJFeVIFkHCAwNKCdRWOt ICAgICAgICAgICAgICAgICAgICAgICAgICAgICAgIC RlVLMiEDSxVMUlNNDhVAJwYA0SDDJuRZQvYKOoZNCdZLJbQLPpJTSpJOPhKNKtCLKeSWFyZIWxJMBlIQ AgICAgICAgICAgICAgICAgICAgICAgICAgICAgICAgICAgICAgICAgICAgICAgICAgICAgICAgICAgIA 0KICAgICAgICAgICAgICAgICAgICAgICAgICAgICAg ICAgICAgICAgICAgICAgICAgICAgICAgICAgICAgICAgICAgICAgICAgICAgICAgICAgICAgICAgICAg YRSgQYFdNRIhUA0TJHWzEXJxLWZqGLIjXXReSAXoRQQvOJQiPCZsALSjFZQgMAEgXUQwIBLuUCJsVWRo ICAgICAgICAgICAgICAgICAgICAgICAgICAgICAgIC RtHRLxODNkRNGeULTsQQEoXOCvMM4WNQXqOLXsSBFdDXGoVITqDZHlBPJbXVQaMGWuSOItOFNcMNEnAU AgICAgICAgICAgICAgICAgICAgICAgICAgICAgICAgICAgICAgICAgICAgICAgICAgICAgICAgICAgIC NpDS9RIFNcTSDrMFOmGXShASUkXWPhDWVuWFHnIWWw ICAgICAgICAgICAgICAgICAgICAgICAgICAgICAgICAgICAgICAgICAgICAgICAgICAgICAgICAgICAg YUJsONIoWRIrSHKzGT0NQMZoNSEaWGDzXQXoPCPiREYqPKMyDUZbBFLhXSQnPIJaQGVyOMCoVIZuFJMb ICAgICAgICAgICAgICAgICAgICAgICAgICAgICAgIC QxBPMoCFZdZXXzLNNyVXVhMYJcYZEeIV6AVQ24mSOhq1W4WZTvWP4uriy/Lr5DCUntobKacFYpPA0GCu AqJY5tzs7LIhXkXW1wme5HPIoFCgYvY7D9nDYjSVRyIFZPVfZbN82sNQviRg22YPksGXLnSlVjCOj3Pg 3KEaOiB6kfRAKhYoF3BDMvZqQ1NSHnPqA7FNDmXvMl SKQdXSBjBYWkLHUVJHN9XLDxBeRfNrQiOMTbKFdaRJRNYRIkGKNtIxAaTnJbQATdWiXqSWPJAQB7HUYh FxOlKUBwETVeFfQvYNHQFJ0LPhRmC5HddF49VHM2OLe+Pi9ZAZ2ly7MtBWy2EUNkPY8nck6ACMqPVvPn K3OvnoH5DLFqGGLoYq8SFUDzDDMlqGP4GARjLPLSHa HnY8LfbF59KZPAGx8+UGikftUwQmhPPwQzQUNoo1XyNVb0UU5TYUKuAWy6qDCuFLELRXK2YAPgOMIbME eoLhTRjWHvt21aSJORPkVzbXJbIT25FkFbZfCpKOE3GBjsTZ6pSWwjGZ2KEXJ1RVptZGJqYKSrM0pRLj YvEZHwRyYxmOqwLU2YWdAkI7PmqiDvsIG1BNAtBCAL Cj4+IAnvhzZuVxqDCuRyCFGkd4AsZYw1ZO5TIXVhGVqmOR9KVXRtvB9cVVywCR8NEaU7SPJiJXWLNdUq K46fqVPtBJn6Q2WfWgQyLBXxIiclEKLxEZrsSqUcJDTlZkLrTSowOI9+ID4+USxdKE6IGVxtctFuVKWv Jr6ISOKwEYKpIT3gIKZwFTVyA8S6vNizCUKPIuWwW6 eszzcqER5uRUBiZ042zCssieKeQZRbIUInLt5YGURuYVR0XORlfAKqNAdjHVMRMGwtEE1WwDOmHIN2wN 5iBMetASCnHSZpP4lHWySnaUmuLX25wUyoyiYbhTApXJk+Rs8HTE3lr1AxDKa1egQlBXvdFLGgICxxEH LcMHWmJPYwEGF3XUT4YMGVWzXdLIUcXKBpYWmfUJQr OVHdnc7ZXYBdHCL9ZLRsGmXaDLVtUDGdRCepNZOiTExtLLS3AAIlRBXmBN8UPhBmIZCyRMZvXCvzWOCq VATqll9HCBVmXEEkJIF9RIDfHASwMXMaVOpsPZVgDQF8LiC8BFSkLDRhGM9GYnStTQOuULu8BXcjTICz DQEhtl9YMUKoCIJzUxu7EwZjUVTvFGLmQZobWLAfBR TgBNDrNQZrRFZzHK8UGtFpWAZvMDM0ABPpMBQxOJRuec7RPWFzEVZiZVF5MZLyLTNnTTFhEZlkNAMfBQ U4Deq6USDlDHSfZU8TRgTjNOBgFFy6AIUoJVXrZZNwkf4HOGEoGSIfFunrLWXkKYXmEPGsRGyvHZGbWL BsRtH4EJMeJLDiZQ8HQyDiCMDsQsG1JPViTJWiGACw fr6SPABaQOLgLEC9NdBySQYoDREuBBdaCVMiWDK7YXYaFWWbLSNbYO1OOdLkNOSnCqquQSOoLSHoGVTs pb9JPZVuKUUzHHD4ZSMpPCEpDCNgSLssHBBbLLZsKCNtPJPzGAQkXS7RRaLmPLCnIyAeHFNiIJTaBZGs ye6FFIFnKWRbIDS0DeViLHNzLSWxNJgyPXIbVWH9Hx q0TVNqCKVmKD4LCgUfUQAkZvs7MiUaMWApYHYuic5FDCVnMMVkGUl8BxGzBFBhJGAwMNjtFVChWUP8QT v6DPEhHMCgDK5ONrWbKPXtRXA5QNEmBMJnQHKoyc6GSMTyKLA2LXQ5EDPoKUPtGYLmWKghGNUvFAN4Mp XqYBDuOBBnHF1JOgSwJLSrUKHpGUKoXRSbFBDfsx1F AZNnVZO0QTNwOGPjKOJfEJPpPLjdRTWmAOGhWBn6JLIrPIBkIX9SNiNpTXAuJFY0VhBnYKCcTABwrx7E ZEEcRBP5Nll0FCWsYUZiKJLxSXtkGPQmKRWrEZM5OGXmIWCjNG8VTsLnZSYlSAVpVgPnGNJrCLHdpj1H BXRtINS2HOVfGFYwUVUvJQXcLSxxZTBnMKumYqGlIT DpFCZaXO3ETnFcUXBlQGNoBPBgDFDoJLHxkk6RJAVtSEW1RHFwISCrZADgZAIjEFqyJFQdLBq6WkFaYE GfKQHnMV6KHeXlJVTdRBW2IAoeQGOrTWQhan4RVGAtCOQ5GGH4MCAkTODlBAPbSHsdXYJrBAwgZVwjYB UmORDvTT1JLyOnLHVdOVF5DJHvJJMvPPIunp5NPPEo IYO1SYVuSrLeNNKwMFExOKrjTEIoNPnsCYswHCGjWREaTH5EFtSqVTCkIFL7WVneHXJwYUVnjz2BGGIs IOB0UqNcQNQvXQUyEYCnNSefDCEfRJmkMDp0HFXmILUbJI9FOvCwUOPaWJCmYhmcDEBaGOQavh4FwFMi cYzlci2GKEmJEl1XcNjmJJBfHKzwWt9zzUB9OrRiVK PMDx2KdmDoGXHuRGVRXXztIGHpFBxjVOG6JeY9VFY3Elt2VbK2XMfzCFgzVIFfYRZ3XPIbKwX5O3CtDj EbNhi7VnOxTOh8KMy6PYV4DAIqVuFcFNIwSoY+WK1qYLf+Yd3Qs6CjtyR3hwKsKVh1HkW4NM5NAGRQB7 YNCg== ID Date Data Source [id number] 08/06/2020 12:18:27 PM [facility] Name Value Range Interpretation Code Description Data Alisson rce(s) Supporting Document(s) [facility] LQDPHf7jCeMYDzPz79/WGQuiYMGtr2NiIHowQOj8PYqsUTQdJ1CuJQR2nJ3qQKA1VZaKWnHvViDlCRW1 lbm [file] +ycNhzcI/qxG+gLEvBVpm3WbEcUDwDpjiDt5u/DIRECTOR LEARNING SERVICES/8 [file] QaaHSfbjQgClH9+XF7ojGKpqT9y/MxSlxxPxV//[id number]/SO/L7iGUUh+9Tu+assisted sales representative [file] ID Date Data Source [id number] 08/06/2020 07:12:53 AM [facility] Name Value Range Interpretation Code Description Data Alisson rce(s) Supporting Document(s) Leukocytes [#/volume] in Blood by Automated count 8.6 10*3/uL 4-10 [facility] Erythrocytes [#/volume] in Blood by Automated count 4.81 10*6/uL 4.6- 6.1 [facility] Hemoglobin [Mass/volume] in Blood 13.0 g/dL 13.5-18 L [facility] Hematocrit [Volume Fraction] of Blood by Automated count 41.3 % 4 1-53 [facility] Erythrocyte mean corpuscular volume [Entitic volume] by Auto mated count 85.8 fL 80-96 [facility] Erythrocyte mean corpuscular hemoglobin [Entitic mass] by Automated count 27.0 pg 27-33 [facility] Erythrocyte mean corpuscular hemoglobin concentration [Mass/volume] by Automated count 31.5 g/dL 32.0-36.0 [facility] width [Ratio] by Automated count 17.8 % 11.5-14.5 H [facility] Platelets [#/volume] in Blood by Automated count 157 10*3/uL 150-400 [facility] ID Date Data Source [id number] 08/06/2020 08:17:11 AM [facility] Name Value Range Interpretation Code Description Data Alisson rce(s) Supporting Document(s) Bicarbonate [Moles/volume] in Serum 28 mmol/L 22-29 [facility] Chloride [Moles/volume] in Serum or Plasma 97 mmol/L 98-107 L [facility] Creatinine [Mass/volume] in Serum or Plasma 0.45 mg/dL 0.70-1.20 L [facility] Glucose [Mass/volume] in Serum or Plasma 91 mg/dL 70-140 [facility] Potassium [Moles/volume] in Serum or Plasma 3.6 mmol/L 3.4-5.1 [facility] Sodium [Moles/volume] in Serum or Plasma 135 mmol/L 136-145 L [facility] Urea nitrogen [Mass/volume] in Serum or Plasma 6 mg/dL 6-20 [facility] Anion gap 3 in Serum or Plasma 10 mmol/L 8-15 [facility] Osmolality of Serum or Plasma by calculation 277 mosm/kg 275-300 [facility] Creatinine/Urea nitrogen [Mass Ratio] in Serum or Plasma 13 [facility] Calcium [Mass/volume] in Serum or Plasma 9.2 mg/dL 8.6-10.0 [facility] Glomerular filtration rate/1.73 sq M pre dicted among non-blacks [Volume Rate/Area] in Serum or Plasma by Creatinine-based formula (MDRD) >6 0 [facility] Glomerular filtration rate/1.73 sq M pre dicted among blacks [Volume Rate/Area] in Serum or Plasma by Creatinine-based formula (MDRD) >60 [facility] ID Date Data Source [id number] 08/05/2020 09:41:24 AM [facility] CT HEAD WITHOUT CONTRAST [id number] RESU LTInterpreted by:MARILYN BruceINDICATION: 54-year-old male with history of seizures and traumatic brain injury; s/p right decompressive hemicraniectomy, subdural hematoma evacuation and cranioplasty . Status post left 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 shunt placement on 08/04/2020 for post traumatic hydrocephalus.TECHNIQUE: Noncontrast CT of the head using axial technique was performed. Automated dose lowering techniques and/or adjustment according to patient size were utilized for this exam.COMPARISON: CT head dated 08/04/2020.FINDINGS: Images are degraded by streak artifact.There is interval placement of left frontal 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 shunt with tip terminating in the frontal horn of the left lateral ventricle. Grossly stable ventriculomegaly. There is interval appearance of pneumocephalus in the left frontal region, likely postoperative. Mild hyperdensity is noted along the 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 shunt as well as in the left frontal region, likely postoperative. There is redemonstration of a small left frontopar ietal subdural collection, not significantly changed. Postoperative changes consistent with a right frontoparietal craniectomy and cranioplasty, not significantly changed. Stable right frontoparietal extra-axial fluid collection with pneumocephalus, not significantly changed. There is no significant midline shift or mass effect. There is no evidence of acute territorial infarction. The basal cisterns remain patent. The paranasal sinuses are clear. IMPRESSION:Interval placement of left frontal 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 shunt. Stable ventriculomegaly.Interval appearance of left frontal pneumocephalus and hyperdensity in the left frontal region as described, likely postoperative.Stable postoperative changes as described above.This document has been electronically signed by MARILYN Bruce on 08/05/2020 9:36 AM Name Value Range Interpretation Code Description Data Alisson rce(s) Supporting Document(s) ID Date Data Source [id number] 08/05/2020 05:50:28 AM [facility] Name Value Range Interpretation Code Description Data Alisson rce(s) Supporting Document(s) Leukocytes [#/volume] in Blood by Automated count 7.7 10*3/uL 4-10 [facility] Erythrocytes [#/volume] in Blood by Automated count 4.51 10*6/uL 4.6- 6.1 L [facility] Hemoglobin [Mass/volume] in Blood 12.2 g/dL 13.5-18 L [facility] Hematocrit [Volume Fraction] of Blood by Automated count 38.5 % 4 1-53 L [facility] Erythrocyte mean corpuscular volume [Entitic volume] by Auto mated count 85.5 fL 80-96 [facility] Erythrocyte mean corpuscular hemoglobin [Entitic mass] by Automated count 27.1 pg 27-33 [facility] Erythrocyte mean corpuscular hemoglobin concentration [Mass/volume] by Automated count 31.7 g/dL 32.0-36.0 [facility] distribution width [Ratio] by Automated count 18.2 % 11.5-14.5 H [facility] Platelets [#/volume] in Blood by Automated count 157 10*3/uL 150-400 [facility] ID Date Data Source [id number] 08/05/2020 06:06:55 AM [facility] Name Value Range Interpretation Code Description Data Alisson rce(s) Supporting Document(s) Bicarbonate [Moles/volume] in Serum 25 mmol/L 22-29 [facility] Chloride [Moles/volume] in Serum or Plasma 101 mmol/L 98-107 [facility] Creatinine [Mass/volume] in Serum or Plasma 0.55 mg/dL 0.70-1.20 L [facility] Glucose [Mass/volume] in Serum or Plasma 87 mg/dL 70-140 [facility] Potassium [Moles/volume] in Serum or Plasma 3.9 mmol/L 3.4-5.1 [facility] Sodium [Moles/volume] in Serum or Plasma 136 mmol/L 136-145 [facility] Urea nitrogen [Mass/volume] in Serum or Plasma 5 mg/dL 6-20 L [facility] Anion gap 3 in Serum or Plasma 10 mmol/L 8-15 [facility] Osmolality of Serum or Plasma by calculation 279 mosm/kg 275-300 [facility] Creatinine/Urea nitrogen [Mass Ratio] in Serum or Plasma 9 [facility] Calcium [Mass/volume] in Serum or Plasma 8.8 mg/dL 8.6-10.0 [facility] Glomerular filtration rate/1.73 sq M pre dicted among non-blacks [Volume Rate/Area] in Serum or Plasma by Creatinine-based formula (MDRD) >6 0 [facility] Glomerular filtration rate/1.73 sq M pre dicted among blacks [Volume Rate/Area] in Serum or Plasma by Creatinine-based formula (MDRD) >60 [facility] ID Date Data Source [id number] 08/04/2020 08:58:39 PM [facility] XR ABDOMEN AP SUPINE AND LATERAL VIEW [id number] 019FINAL RESULTInterpreted by:EMA Stanley INFORMATION: Exam: XR Abdomen, 2 Views Exam date and time: 08/04/2020 6:19 PM Age: 54 years old Clinical indication: Epilepsy, unspecified, not intractable, without status epilepticus; Illness, unspecified; Other: S/P executive vp shunt placement TECHNIQUE: Imaging protocol: XR of the abdomen. Views: 2 Views. COMPARISON: DX XR ABDOMEN AP ABD SUPINE ONLY [id number] PORTABLE 07/14/2020 9:19 AM FINDINGS: Gastrointestinal tract: Stool is noted throughout the colon, correlate for constipation. Intraperitoneal space: Shunt tubing is noted traversing the left abdomen and mid abdomen and terminates in the right lower quadrant. No evidence of break in the visualized portion of the shunt tubing. Bones/joints: Unremarkable for age. IMPRESSION: 1. Shunt tubing is noted traversing the left abdomen and mid abdomen and terminates in the right lower quadrant. No evidence of break in the visualized portion of the shunt tubing. 2. Stool is noted throughout the colon, correlate for constipation. Phleboliths noted in the pelvis. Gastrostomy tube noted in the left upper quadrant THIS DOCUMENT HAS BEEN ELECTRONICALLY SIGNED BY KOBE MCKEON MDThis document has been electronically signed by MARILYN Stanley on 08/04/2020 8:58 PM Name Value Range Interpretation Code Description Data Alisson rce(s) Supporting Document(s) ID Date Data Source [id number] 08/04/2020 08:57:29 PM [facility] XR SKULL LIMITED [id number] RESULTInterp reted by:MARILYN StanleyPROCEDURE INFORMATION: Exam: XR Skull, Less Than 4 Views Exam date and time: 08/04/2020 6:19 PM Age: 54 years old Clinical indication: Epilepsy, unspecified, not intractable, without status epilepticus; Illness, unspecified; Other: S/P executive vp shunt placement TECHNIQUE: Imaging protocol: XR of the skull, less than 4 views. COMPARISON: CT HEAD WITHOUT CONTRAST [id number] 08/04/2020 2:19 AM FINDINGS: Tubes, catheters and devices: Left-sided shunt tubing is noted. No evidence of break in the visualized portion of the shunt tubing. Sinuses: Well aerated. No opacification. Bones/joints: No fracture. Soft tissues: Unremarkable. IMPRESSION: Left-sided shunt tubing is noted. No evidence of break in the visualized portion of the shunt tubing. THIS DOCUMENT HAS BEEN ELECTRONICALLY SIGNED BY KOBE Darby document has been electronically signed by MARILYN Stanley on 08/04/2020 8:57 PM Name Value Range Interpretation Code Description Data Alisson rce(s) Supporting Document(s) ID Date Data Source [id number] 08/04/2020 08:56:19 PM [facility] XR CHEST FRONTAL AND LATERAL [id number] RESULTInterpreted by:MARILYN StanleyPROCEDURE INFORMATION: Exam: XR Chest, 2 Views Exam date and time: 08/04/2020 6:19 PM Age: 54 years old Clinical indication: Epilepsy, unspecified, not intractable, without status epilepticus; Illness, unspecified; Other: S/P executive vp shunt placement TECHNIQUE: Imaging protocol: XR of the chest Views: 2 views. COMPARISON: CR XR CHEST FRONTAL ONLY [id number] PORTABLE 07/31/2020 11:55 AM FINDINGS: technique and overlying wires limits evaluation.Lungs: Shunt tubing is noted traversing the left neck hemithorax and abdomen. No evidence of break in the visualized portion of the shunt tubing. Pleural space: Bilateral pleural effusions and/or pleural thickening, similar to the prior. Low lung volumes. Coarse calcifications noted in the left upper hemithorax. Heart/Mediastinum: Unchanged. Bones/joints: Spondylosis. IMPRESSION: Shunt tubing is noted traversing the left neck hemithorax and abdomen. No evidence of break in the visualized portion of the shunt tubing. THIS DOCUMENT HAS BEEN ELECTRONICALLY SIGNED BY HARISHA KOMMANA MDThis document has been electronically signed by MARILYN Stanley on 08/04/2020 8:56 PM Name Value Range Interpretation Code Description Data Alisson rce(s) Supporting Document(s) ID Date Data Source [id number] 08/04/2020 04:25:52 PM [facility] CT HEAD WITHOUT CONTRAST [id number] RESU LTInterpreted by:Sofia Hickey MDClinical Indication: Thin cut. zero gantry. include tip of nose / ears. STEALTH neuronavigation..Technique: Contiguous axial CT images of the head were acquired from the base of the skull to the vertex without intravenous contrast administration. Images were viewed in brain, subdural and bone windows. Automated dose lowering techniques and/or adjustment according to patient size were utilized for this exam.Comparison: CT head 08/03/2020.Findings: Stable ventriculomegaly. There is redemonstration of postoperative changes consistent with a right frontoparietal craniectomy and cranioplasty. Redemonstration of a right frontoparietal extra-axial fluid collection with pneumocephalus, this is grossly unchanged. There is no significant midline shift or mass effect. There is redemonstration of a small left frontoparietal subdural collection, this is not significantly changed. There is no new acute intracranial hemorrhage or evidence of acute territorial infarction. The basal cisterns remain patent. The ventricles appear unchanged in size.The paranasal sinuses are clear.Impression: Stable ventriculomegaly. Postoperative changes from right-sided craniectomy and cranioplasty as previously described. Bilateral subdural collections are grossly unchanged. This document has been electronically signed by Nir Lopes MD on 08/04/2020 4:23 PM Name Value Range Interpretation Code Description Data Alisson rce(s) Supporting Document(s) ID Date Data Source [id number] 08/04/2020 04:53:18 PM [facility] Name Value Range Interpretation Code Description Data Alisson rce(s) Supporting Document(s) Color of Urine [facility] Clarity of Urine [facility] Specific gravity of Urine by Refractometry automated 1.010 1.003 -1.030 [facility] pH of Urine by Automated test strip 8.0 5.0-8.0 [facility] Protein [Mass/volume] in Urine by Automated test strip Neg [facility] Glucose [Mass/volume] in Urine by Automated test strip Neg [facility] Ketones [Mass/volume] in Urine by Automated test strip Neg [facility] Bilirubin.total [Presence] in Urine by Automated test strip Negative [facility] Hemoglobin [Presence] in Urine by Automated test strip Neg [facility] Leukocyte esterase [Presence] in Urine by Automated test strip Negative [facility] Nitrite [Presence] in Urine by Automated test strip Negati [facility] Leukocytes [#/area] in Urine sediment by Automated count 0 /HPF 0 -5 [facility] Erythrocytes [#/area] in Urine sediment by Automated count 0 /HPF 0-3 [facility] Service comment [facility] ID Date Data Source [id number] 08/04/2020 09:59:34 AM [facility] Name Value Range Interpretation Code Description Data Alisson rce(s) Supporting Document(s) [facility] [id number]nVFH4dZ5kUQJ7YDhDRuZsIlRmVANm lbm [file] m/[facility]+[id number]/uv8m/lil75 [file] 9GDQo= ID Date Data Source [id number] 08/04/2020 06:12:58 AM [facility] Name Value Range Interpretation Code Description Data Alisson rce(s) Supporting Document(s) Leukocytes [#/volume] in Blood by Automated count 6.0 10*3/uL 4-10 [facility] Erythrocytes [#/volume] in Blood by Automated count 5.12 10*6/uL 4.6- 6.1 [facility] Hemoglobin [Mass/volume] in Blood 13.9 g/dL 13.5-18 [facility] Hematocrit [Volume Fraction] of Blood by Automated count 45.6 % 4 1-53 [facility] Erythrocyte mean corpuscular volume [Entitic volume] by Auto mated count 89.0 fL 80-96 [facility] Erythrocyte mean corpuscular hemoglobin [Entitic mass] by Automated count 27.1 pg 27-33 [facility] Erythrocyte mean corpuscular hemoglobin concentration [Mass/volume] by Automated count 30.4 g/dL 32.0-36.0 [facility] distribution width [Ratio] by Automated count 18.3 % 11.5-14.5 H [facility] Platelets [#/volume] in Blood by Automated count 121 10*3/uL 150-400 L [facility] ID Date Data Source [id number] 08/04/2020 08:41:49 AM [facility] Name Value Range Interpretation Code Description Data Alisson rce(s) Supporting Document(s) Bicarbonate [Moles/volume] in Serum 22 mmol/L 22-29 [facility] Chloride [Moles/volume] in Serum or Plasma 102 mmol/L 98-107 [facility] Creatinine [Mass/volume] in Serum or Plasma 0.53 mg/dL 0.70-1.20 L [facility] Glucose [Mass/volume] in Serum or Plasma 84 mg/dL 70-140 [facility] Potassium [Moles/volume] in Serum or Plasma 4.1 mmol/L 3.4-5.1 [facility] Sodium [Moles/volume] in Serum or Plasma 136 mmol/L 136-145 [facility] Urea nitrogen [Mass/volume] in Serum or Plasma 9 mg/dL 6-20 [facility] Anion gap 3 in Serum or Plasma 12 mmol/L 8-15 [facility] Osmolality of Serum or Plasma by calculation 280 mosm/kg 275-300 [facility] Creatinine/Urea nitrogen [Mass Ratio] in Serum or Plasma 17 [facility] Calcium [Mass/volume] in Serum or Plasma 8.8 mg/dL 8.6-10.0 [facility] Glomerular filtration rate/1.73 sq M pre dicted among non-blacks [Volume Rate/Area] in Serum or Plasma by Creatinine-based formula (MDRD) >6 0 [facility] Glomerular filtration rate/1.73 sq M pre dicted among blacks [Volume Rate/Area] in Serum or Plasma by Creatinine-based formula (MDRD) >60 [facility] ID Date Data Source [id number] 08/03/2020 11:50:13 PM [facility] Value Range Interpretation Code Description Data Alisson rce(s) Supporting Document(s) ABO and Rh group [Type] in Blood [facility] Blood group antibody screen [Presence] in Serum or Plasma [facility] Blood bank comment [facility] ID Date Data Source [id number] 08/03/2020 11:47:21 PM [facility] Value Range Interpretation Code Description Data Alisson rce(s) Supporting Document(s) Valproate [Mass/volume] in Serum or Plasma 69 ug/ml 50-100 [facility] ID Date Data Source [id number] 08/03/2020 03:01:59 PM [facility] Value Range Interpretation Code Description Data Alisson rce(s) Supporting Document(s) Valproate [Mass/volume] in Serum or Plasma 63 ug/ml 50-100 [facility] ID Date Data Source [id number] 08/03/2020 02:51:19 PM [facility] Name Value Range Interpretation Code Description Data Alisson rce(s) Supporting Document(s) Ammonia [Moles/volume] in Plasma 43 umol/L 16-60 [facility] ID Date Data Source [id number] 08/03/2020 01:41:22 PM [facility] CT HEAD WITHOUT CONTRAST [id number] RESU LTInterpreted by:Nelia Guerra MDCLINICAL INDICATION: 54-year-old male, evaluate for encephalopathy.TECHNIQUE: Contiguous axial CT images of the head were acquired in 5 mm and reconstructed in 1.25mm slices from the base of the skull to the vertex without intravenous contrast administration. Images were viewed in brain, subdural, and bone windows. Coronal and sagittal reformatted images were also obtained. Automated dose lowering techniques and/or adjustment according to patient size were utilized for this exam.COMPARISON: CT head dated 07/30/2020. FINDINGS: There are stable postoperative craniectomy and cranioplasty changes of the right calvarium. The fluid collection along the right cerebral convexity and pneumocephalus is grossly unchanged in amount which demonstrates associated minimal mass effect on the subjacent brain parenchyma. Additionally, the mixed density subdural collection along the left frontal convexity is also unchanged i n amount. There is no midline shift. The basal cisterns are patent.There is no new intracranial hemorrhages or large territorial infarct with normal myelination.The ventricular system, in particular the lateral and third ventricles are mildly enlarged and grossly unchanged in size.The imaged paranasal sinuses and mastoid air cells are clear. IMPRESSION: Stable postoperative changes from right-sided craniectomy with cranioplasty showing no significant interval changes.This document has been electronically signed by Noel Quinonez MD on 08/03/2020 1:39 PM Name Value Range Interpretation Code Description Data Alisson rce(s) Supporting Document(s) ID Date Data Source [id number] 08/03/2020 05:54:56 AM [facility] Name Value Range Interpretation Code Description Data Alisson rce(s) Supporting Document(s) Leukocytes [#/volume] in Blood by Automated count 6.1 10*3/uL 4-10 [facility] Erythrocytes [#/volume] in Blood by Automated count 4.81 10*6/uL 4.6- 6.1 [facility] Hemoglobin [Mass/volume] in Blood 13.1 g/dL 13.5-18 L [facility] Hematocrit [Volume Fraction] of Blood by Automated count 41.4 % 4 1-53 [facility] Erythrocyte mean corpuscular volume [Entitic volume] by Auto mated count 86.1 fL 80-96 [facility] Erythrocyte mean corpuscular hemoglobin [Entitic mass] by Automated count 27.3 pg 27-33 [facility] Erythrocyte mean corpuscular hemoglobin concentration [Mass/volume] by Automated count 31.7 g/dL 32.0-36.0 [facility] distribution width [Ratio] by Automated count 17.9 % 11.5-14.5 H [facility] Platelets [#/volume] in Blood by Automated count 149 10*3/uL 150-400 L [facility] ID Date Data Source [id number] 08/03/2020 06:06:53 AM [facility] Name Value Range Interpretation Code Description Data Alisson rce(s) Supporting Document(s) Bicarbonate [Moles/volume] in Serum 28 mmol/L 22-29 [facility] Chloride [Moles/volume] in Serum or Plasma 100 mmol/L 98-107 [facility] Creatinine [Mass/volume] in Serum or Plasma 0.53 mg/dL 0.70-1.20 [facility] Glucose [Mass/volume] in Serum or Plasma 89 mg/dL 70-140 [facility] Potassium [Moles/volume] in Serum or Plasma 3.9 mmol/L 3.4-5.1 [facility] Sodium [Moles/volume] in Serum or Plasma 136 mmol/L 136-145 [facility] Urea nitrogen [Mass/volume] in Serum or Plasma 7 mg/dL 6-20 [facility] Anion gap 3 in Serum or Plasma 8 mmol/L 8-15 [facility] Osmolality of Serum or Plasma by calculation 279 mosm/kg 275-300 [facility] Creatinine/Urea nitrogen [Mass Ratio] in Serum or Plasma 13 [facility] Calcium [Mass/volume] in Serum or Plasma 9.2 mg/dL 8.6-10.0 [facility] Glomerular filtration rate/1.73 sq M pre dicted among non-blacks [Volume Rate/Area] in Serum or Plasma by Creatinine-based formula (MDRD) >6 0 [facility] Glomerular filtration rate/1.73 sq M pre dicted among blacks [Volume Rate/Area] in Serum or Plasma by Creatinine-based formula (MDRD) >60 [facility] ID Date Data Source [id number] 08/07/2020 02:07:54 PM EST [facility] Name Value Range Interpretation Code Description Data Alisson rce(s) Supporting Document(s) Carnitine [Moles/volume] in Serum or Plasma 63 umol/L 27-73 [facility] (NOTE)This test was developed and its pe rformance characteristicsdetermined by [facility]. It has not been cleared or approvedby the Food and Drug Administration. Carnitine free (C0) [Moles/volume] in Serum or Plasma 55 umol/L 20-5 5 [facility] (NOTE)This test was developed and its pe rformance characteristicsdetermined by [facility]. It has not been cleared or approvedby the Food and Drug Administration. Carnitine esters/Carnitine.free (C0) [Molar ratio] in Serum or Plasma 0.1 Ratio 0.0-0.9 [facility] (NOTE)Performed At: [facility] [address] [id number] Sanjai MD Ph:[id number] ID Date Data Source [id number] 08/02/2020 05:00:50 AM EDT [facility] Name Value Range Interpretation Code Description Data Alisson rce(s) Supporting Document(s) Leukocytes [#/volume] in Blood by Automated count 6.4 10*3/uL 4-10 [facility] Erythrocytes [#/volume] in Blood by Automated count 4.60 10*6/uL 4.6- 6.1 [facility] Hemoglobin [Mass/volume] in Blood 12.6 g/dL 13.5-18 L [facility] Hematocrit [Volume Fraction] of Blood by Automated count 40.1 % 4 1-53 L [facility] Erythrocyte mean corpuscular volume [Entitic volume] by Auto mated count 87.1 fL 80-96 [facility] Erythrocyte mean corpuscular hemoglobin [Entitic mass] by Automated count 27.4 pg 27-33 [facility] Erythrocyte mean corpuscular hemoglobin concentration [Mass/volume] by Automated count 31.4 g/dL 32.0-36.0 [facility] E[facility]th[facility] distribution width [Ratio] by Automated count 17.9 % 11.5-14.5 H [facility] Platelets [#/volume] in Blood by Automated count 146 10*3/uL 150-400 L [facility] ID Date Data Source [id number] 08/02/2020 05:14:41 AM [facility] Name Value Range Interpretation Code Description Data Alisson rce(s) Supporting Document(s) Prothrombin time (PT) 13.1 s 12.5-14.9 [facility] INR in Platelet poor plasma by Coagulation assay 0.98 [facility] Routine intensity oral anticoagulation I NR is typically 2.0-3.0. Target INR must be clinically individualized. ID Date Data Source [id number] 08/02/2020 05:14:41 AM [facility] Value Range Interpretation Code Description Data Alisson rce(s) Supporting Document(s) aPTT in Platelet poor plasma by Coagulation assay 26.8 s 24.0-33. 0 [facility] ID Date Data Source [id number] 08/02/2020 05:21:46 AM [facility] Value Range Interpretation Code Description Data Alisson rce(s) Supporting Document(s) Bicarbonate [Moles/volume] in Serum 29 mmol/L 22-29 [facility] Chloride [Moles/volume] in Serum or Plasma 100 mmol/L 98-107 [facility] Creatinine [Mass/volume] in Serum or Plasma 0.47 mg/dL 0.70-1.20 L [facility] Glucose [Mass/volume] in Serum or Plasma 85 mg/dL 70-140 [facility] Potassium [Moles/volume] in Serum or Plasma 3.8 mmol/L 3.4-5.1 [facility] Sodium [Moles/volume] in Serum or Plasma 138 mmol/L 136-145 [facility] Urea nitrogen [Mass/volume] in Serum or Plasma 5 mg/dL 6-20 L [facility] Anion gap 3 in Serum or Plasma 9 mmol/L 8-15 [facility] Osmolality of Serum or Plasma by calculation 283 mosm/kg 275-300 [facility] Creatinine/Urea nitrogen [Mass Ratio] in Serum or Plasma 11 [facility] Calcium [Mass/volume] in Serum or Plasma 9.0 mg/dL 8.6-10.0 [facility] Glomerular filtration rate/1.73 sq M pre dicted among non-blacks [Volume Rate/Area] in Serum or Plasma by Creatinine-based formula (MDRD) >6 0 [facility] Glomerular filtration rate/1.73 sq M pre dicted among blacks [Volume Rate/Area] in Serum or Plasma by Creatinine-based formula (MDRD) >60 [facility] ID Date Data Source [id number] 08/01/2020 11:37:00 AM [facility] Name Value Range Interpretation Code Description Data Alisson rce(s) Supporting Document(s) Valproate [Mass/volume] in Serum or Plasma 89 ug/ml 50-100 [facility] ID Date Data Source [id number] 08/01/2020 11:30:19 AM [facility] Value Range Interpretation Code Description Data Alisson rce(s) Supporting Document(s) Ammonia [Moles/volume] in Plasma 93 umol/L 16-60 H [facility] ID Date Data Source [id number] 08/01/2020 07:09:41 AM [facility] Value Range Interpretation Code Description Data Alisson rce(s) Supporting Document(s) Leukocytes [#/volume] in Blood by Automated count 4.7 10*3/uL 4-10 [facility] Erythrocytes [#/volume] in Blood by Automated count 4.69 10*6/uL 4.6- 6.1 [facility] Hemoglobin [Mass/volume] in Blood 12.7 g/dL 13.5-18 L [facility] Hematocrit [Volume Fraction] of Blood by Automated count 40.5 % 4 1-53 L [facility] Erythrocyte mean corpuscular volume [Entitic volume] by Auto mated count 86.4 fL 80-96 [facility] Erythrocyte mean corpuscular hemoglobin [Entitic mass] by Automated count 27.1 pg 27-33 [facility] Erythrocyte mean corpuscular hemoglobin concentration [Mass/volume] by Automated count 31.4 g/dL 32.0-36.0 [facility] Eryth[facility] distribution width [Ratio] by Automated count 18.2 % 11.5-14.5 H [facility] Platelets [#/volume] in Blood by Automated count 138 10*3/uL 150-400 L [facility] ID Date Data Source [id number] 08/01/2020 09:02:00 AM [facility] Name Value Range Interpretation Code Description Data Alisson rce(s) Supporting Document(s) Cholesterol [Mass/volume] in Serum or Plasma 215 mg/dL <200 H [facility] Triglyceride [Mass/volume] in Serum or Plasma 113 mg/dL <150 [facility] Cholesterol in HDL [Mass/volume] in Serum or Plasma 41 mg/dL >40 [facility] Cholesterol in LDL [Mass/volume] in Serum or Plasma by calcu lation 151 mg/dL <100 H [facility] Cholesterol in VLDL [Mass/volume] in Serum or Plasma by calc ulation 23 mg/dl 16-42 [facility] Cholesterol non HDL [Mass/volume] in Serum or Plasma 174 mg/dL <130 H [facility] ID Date Data Source [id number] 08/01/2020 09:02:00 AM [facility] Name Value Range Interpretation Code Description Data Alisson rce(s) Supporting Document(s) Bicarbonate [Moles/volume] in Serum 27 mmol/L 22-29 [facility] Chloride [Moles/volume] in Serum or Plasma 103 mmol/L 98-107 [facility] Creatinine [Mass/volume] in Serum or Plasma 0.51 mg/dL 0.70-1.20 L [facility] Glucose [Mass/volume] in Serum or Plasma 76 mg/dL 70-140 [facility] Potassium [Moles/volume] in Serum or Plasma 3.8 mmol/L 3.4-5.1 [facility] Sodium [Moles/volume] in Serum or Plasma 138 mmol/L 136-145 [facility] Urea nitrogen [Mass/volume] in Serum or Plasma 4 mg/dL 6-20 L [facility] Anion gap 3 in Serum or Plasma 8 mmol/L 8-15 [facility] Osmolality of Serum or Plasma by calculation 282 mosm/kg 275-300 [facility] Creatinine/Urea nitrogen [Mass Ratio] in Serum or Plasma 8 [facility] Calcium [Mass/volume] in Serum or Plasma 8.1 mg/dL 8.6-10.0 L [facility] Glomerular filtration rate/1.73 sq M pre dicted among non-blacks [Volume Rate/Area] in Serum or Plasma by Creatinine-based formula (MDRD) >6 0 [facility] Glomerular filtration rate/1.73 sq M pre dicted among blacks [Volume Rate/Area] in Serum or Plasma by Creatinine-based formula (MDRD) >60 [facility] ID Date Data Source [id number] 07/31/2020 09:10:45 PM EDT [facility] Name Value Range Interpretation Code Description Data Alisson rce(s) Supporting Document(s) Consultation [facility] IZQMKl0jXoCLOzJt40/QDTwnLKAda1CpIMsaBGo1EInuGHYfE8CmQDV4yY0mOKM5VUkUApTkKwRdCVG8 lbm [file] /OzHcGGvvYWfkDjAKvnZj+EZPpdRJuSuVl3dzS2MLnb2Nefy18EWi7wW7w9vzzVcZoMTtltsDHUQ6+[employer] [file] DQogICAgICAgICAgICAgICAgICAgICAgICAgICAgICAgICAgICAgICAgICAgICAgICAgICAgICAgICAg ICAgICAgICAgICAgICAgICAgICAgICAgICAgICAgICAgICAgICAgICAgDQogICAgICAgICAgICAgICAg ICAgICAgICAgICAgICAgICAgICAgICAgICAgICAgIC AgICAgICAgICAgICAgICAgICAgICAgICAgICAgICAgICAgICAgICAgICAgICAgICAgICAgDQogICAgIC AgICAgICAgICAgICAgICAgICAgICAgICAgICAgICAgICAgICAgICAgICAgICAgICAgICAgICAgICAgIC AgICAgICAgICAgICAgICAgICAgICAgICAgICAgICAg ICAgDQogICAgICAgICAgICAgICAgICAgICAgICAgICAgICAgICAgICAgICAgICAgICAgICAgICAgICAg ICAgICAgICAgICAgICAgICAgICAgICAgICAgICAgICAgICAgICAgICAgICAgDQogICAgICAgICAgICAg ICAgICAgICAgICAgICAgICAgICAgICAgICAgICAgIC AgICAgICAgICAgICAgICAgICAgICAgICAgICAgICAgICAgICAgICAgICAgICAgICAgICAgICAgDQogIC AgICAgICAgICAgICAgICAgICAgICAgICAgICAgICAgICAgICAgICAgICAgICAgICAgICAgICAgICAgIC AgICAgICAgICAgICAgICAgICAgICAgICAgICAgICAg ICAgICAgDQogICAgICAgICAgICAgICAgICAgICAgICAgICAgICAgICAgICAgICAgICAgICAgICAgICAg ICAgICAgICAgICAgICAgICAgICAgICAgICAgICAgICAgICAgICAgICAgICAgICAgDQogICAgICAgICAg ICAgICAgICAgICAgICAgICAgICAgICAgICAgICAgIC AgICAgICAgICAgICAgICAgICAgICAgICAgICAgICAgICAgICAgICAgICAgICAgICAgICAgICAgICAgDQ ogICAgICAgICAgICAgICAgICAgICAgICAgICAgICAgICAgICAgICAgICAgICAgICAgICAgICAgICAgIC AgICAgICAgICAgICAgICAgICAgICAgICAgICAgICAg ICAgICAgICAgDQogICAgICAgICAgICAgICAgICAgICAgICAgICAgICAgICAgICAgICAgICAgICAgICAg BJFbZHUqFPKuVILcLREiYBKjUEXsBHCuXMHkRMOhWJCjWNBrVVHnJEFjVOCwEKNsHINoLLh2N7rrUKPp TJZdEF2hJOw6Vi8+QXrIEdJuAGA4feHsdH2QCX2pq0 EpTUsjJZDws7XxJFh1VS7OLXZhFSebUQ3UPLpjgf3DBSUfGTVonKTAv0tcXuArOSQ2DHVpOwjzUX0GQD NkQ8davaGlLWKvBRQNPZwuKADRQTobAAOEMDUnCJHuPiUqZkEhFIBgQB5NUYSkP738tdIcKN5HAu1JDf HsNG2tgc5IVrWgTYYgEtnCLst6KDpvDJ1AyTKryUMy CSLjSKSDMmNzL3xwk6KbSfIgWFOFHPnzBV1Bk7DhpFHhYKq+Nn8YLP7rq0AbVSdwFWHiGE1qfq1BJZmJ NyEuG5ZmyGneBVXtszY7mHJwHLZ9DU3btZPaTCugBFOYww53NQGwQZ9JLGB6HZNpNsI3BkWgEnHxGHF5 HHZrPW3dKVynNO5JAWI2BDxwOHSqBUQjU5hWJwGqXM BsEtWwoVwyQB0UKgZfF1AipvJjyQYpQANkURPQYe6+OHaqpwHsAtpLKlQmVRLul6NnXTu7LK1TXBChJQ swFY8HHYXghC9aRZweJA5HIgWbJZTaLGQIVwEmU96ovDNnOSj6K8WoWqAzMKChBcriXJRtCQqjDnTbUR MgWyBdDQogID4+ID4+DHpkZM2SRLvbshOpXXZoNw2K QQWhNSHdIA5tPXXiJMDgJ8E6dSkrVTMUBlAtG0pnvvsaDJ7gPBRvV715yImkfwWwHAZuNSSuJb1UBXTm IRK9LSUlxARuZiqkJTRQGXggNP3NlQSrFDN9fK7mTRrkTGUvRYHuZ2mDIbYfkIqfAI23gXqvgcCnxKZy DQo+Xd3BWG4yj8HjKUz1zmJmGGgqYFHpAStnMRKkRR DvAYAjZIQ6QWH4HBREUnRpXNGmRDItLSkiUFZvFQRyng2OIVMuMCBiBlM0HjPjGGPpFRKwCKsqDVUwEC K9LVjhOUBoRYKeJZ1FPzJiGYIuXAMtKWgrRQPuGQWuqv0SZAAbCSWdEaJuEkKmHVPoQWVdTBgbSJAvBM BnDIY0JKUsYZZtFF7JRkVhVKGtZGK4CXEaNYSgYKAz og8PMKSzCEEkZxJ9RQArIHUbRUUwLRrwRGPnGOUmXTI3RVFbSVNgXP5XZxKpMAFoJGDdTHuoBQTzOAQk gx5SGCUbRPJoOla1GXXpKOCzEZDkRDneJRRsDDEiDPw1IOTuLDDwPV5LLvMkYBEgEGR9IITpTFQmEWDk vh2XWRDfGWSrCsUcVEPsDAGkVXPfFWhzPGEnPIS9TD V8RRJtJRXaDN0EFdEaQFSwBUezIuQaZFViEPEmxt3ABFGkMHZqLwV8BOTsTUYqBZUcTZnnVBQdLVK4Jc Q2YOHwBWDrBJ9RQbQyURJuGLk8UTdbHQHyYMRkti9OJAAhSYQhKBG8FlVgNDKiSIUzPGetGYFoHWQ4Yp A5HETwCDKxDI5OIxGpRNVuOTk0JAUnOMVaEAAmce2C QOOzKRKzXOJpTvPlHYMmFNShWGwxCSVfXCBgQZLnPMKzQHHuTF8KHsMvZJMjIrY9DDSyVHKxAYUevi9Y UGZrTDCeJIl4YLVaASVcNHTnKVmgPFGbCSZzYHg5LVEsLEJwWK2MTjCwZRZzEyQiEmMoXYOmZKPgbc5P FCQhNTGfKzi2DYEoZDTfHOCaRNltJCTdVAM4GaE2IM YeTPGeGB8OKqJmECIdCgMgGOQpHTJhTOWcjm2AFSYxEQOlQRCtQcZsEBVcDRUdCRa4jiXxtQQuZGu8OL 3KV6RsyxAwQeTWQa2Fz806AUPiYRBjLt7DX1ccYs8tXXXuJWRXSd5HOMs3YYIeYOJnOfXzPxYyJfH2Fk LmRSL6RpGjJpBeFsKiSGH+QJzyLPE5VrHrAzT3JzB0 BSQlRFA4PDlsEnRwSMXbEhBvTr9bMXYAZs3+KWjprQYtoAgvQEOCOxR9Lmb2HCfuVURDMh5P ID Date Data Source [id number] 07/31/2020 09:10:10 PM EDT [facility] Name Value Range Interpretation Code Description Data Alisson rce(s) Supporting Document(s) History and Physical [facility] SQZMUo5tOtWHRxYn38/KVOwwVMHua8IfRVqrRJg8XSayGTFqK8SxXGG1tC5mRSS2XSfPAlKqQzBsPCZ1 lbm BhGveKFtLoJPBkLpeHNsKpFPboTsvsxTIaJM2PsOB8UXNoG67sSVLcOJDuI1IeWRXvYrp+Kd5UIJNpdF KwFM4SXqnF7M3eRyeBQg7+5a6Smj0oHTQKrV72ksqfKYnSakmiz8RlxqPKdW3u0xvQ5G36zoaZmUcAl2 tPRiEwi8Olla4ama7fx11wtxpO/u1RrPg8laMq1S+P /prknP8c4K//koqkgu7sOc4JwFMbsNh8qjvN0W+O/sJPo5du447dldWE3MmcwCcAi0PSACmaVE30JD/c bfIppTHECaYD33a4/OpkcKqcMPBt2/38+Gita/q76Q/MvSMsb8z35Bn/B2HQQHwr2py69LEi7WsUNTj2x [file] AgICAgICAgICAgICAgICAgICAgICAgICAgICAgICAgICAgICAgICAgICAgICAgICANCiAgICAgICAgIC AgICAgICAgICAgICAgICAgICAgICAgICAgICAgICAg ICAgICAgICAgICAgICAgICAgICAgICAgICAgICAgICAgICAgICAgICAgICAgICAgICAgICAgICAgICAN CiAgICAgICAgICAgICAgICAgICAgICAgICAgICAgICAgICAgICAgICAgICAgICAgICAgICAgICAgICAg ICAgICAgICAgICAgICAgICAgICAgICAgICAgICAgIC AgICAgICAgICANCiAgICAgICAgICAgICAgICAgICAgICAgICAgICAgICAgICAgICAgICAgICAgICAgIC AgICAgICAgICAgICAgICAgICAgICAgICAgICAgICAgICAgICAgICAgICAgICAgICAgICANCiAgICAgIC AgICAgICAgICAgICAgICAgICAgICAgICAgICAgICAg ICAgICAgICAgICAgICAgICAgICAgICAgICAgICAgICAgICAgICAgICAgICAgICAgICAgICAgICAgICAg ICANCiAgICAgICAgICAgICAgICAgICAgICAgICAgICAgICAgICAgICAgICAgICAgICAgICAgICAgICAg ICAgICAgICAgICAgICAgICAgICAgICAgICAgICAgIC AgICAgICAgICAgICANCiAgICAgICAgICAgICAgICAgICAgICAgICAgICAgICAgICAgICAgICAgICAgIC AgICAgICAgICAgICAgICAgICAgICAgICAgICAgICAgICAgICAgICAgICAgICAgICAgICAgICANCiAgIC AgICAgICAgICAgICAgICAgICAgICAgICAgICAgICAg ICAgICAgICAgICAgICAgICAgICAgICAgICAgICAgICAgICAgICAgICAgICAgICAgICAgICAgICAgICAg ICAgICANCiAgICAgICAgICAgICAgICAgICAgICAgICAgICAgICAgICAgICAgICAgICAgICAgICAgICAg ICAgICAgICAgICAgICAgICAgICAgICAgICAgICAgIC AgICAgICAgICAgICAgICANCiAgICAgICAgICAgICAgICAgICAgICAgICAgICAgICAgICAgICAgICAgIC AgICAgICAgICAgICAgICAgICAgICAgICAgICAgICAgICAgICAgICAgICAgICAgICAgICAgICAgICANCj w/bNJuO8gapMPqcfG7G2rpCe4RSv8FEX6cb5GgTJWi HZazryMnGdyODfArAWRbIdrEPgh5CCslHQ7EyMVvX3WiQ0IzTGppKM9WQFHfJKFzjJWtVZFdYPWhSjW5 YHMsSLapEM3HiGBmZVhiREPcWZTcZpZsQILgKIMtIGEsZDBgBPRWNYKkZKUwIrBsDBKnWUYdHFiuHRVJ SQT8RBMsSrAxXYsyCQ5Tz6JbePA8JIk+By6RDS9qw0 XuMEsgDpEoJF1goa1QCDoOBbPvD4HyufZ0WAN4FNYaAf8GUHKnRVPxeJLxQeDpJBBBUlQbV6SokR41IS ENCj4+AJjzrpYwBxpBJdA9IHGzu9HpAIa0BY5AMQIrQOf9pLQkDBGHAKI4AM7oqeWmPQPoO5L9kkghQZ FFFiUtbAKeOK7fLT5iMMEtCWH6TvX8SGPMRE9HGVUv HXXnpYViWNXmLNJLBR8FSLjmYKX4YMTqufXqkROrWPcoBP6EXDKoloVkUjTzYHKIYEt+Lz5JVC0gc6Lz DIxaUSKjGC0swy3XHAwSTeZlE5O9mZAzK7A1YTrtRv2BPRDtQYSdLrPeFJYWZKcrLY1DTX3xtiP4NR6M mPHbUANeAUJsqBJrWWn8U86tsEYdCCnpSS1UBNS+Pi A+Hn4MQGVhGDXwDJZkQwNqWJWZQuNuC9ZeI6AWx5SdQ4IzJW68yJlvxtMqQZxcQH5RQG8oAOUnAGOFYE 6UgBJugP3aqmVmWzKaHKLCYqEkP60qpEKrUDNhIFK4DTDtAl9OLTKhC9BoxnXuiWqopxItCMBoHMMSXU 4SLTapogZjbOXrsGrpYD21hVxhMF5IWq2SJwBpOX2a rk9GuWKdYv9DREVfRY9QUWQmJDUfHASuBIK2HTAmBeAiUIwmYVNoIMMxTOA1QNBoUATvPF9ICxVyMGZg TFMiBRlvRZCbDYIojo7EVTWfUJZ2MUuzZTJyHGDlLMYvEWuaETLrGCJnIEK7GPCyPUYoGF1UNcUdBMQa ANH7IykmVRWcBNQwzc5JAUCgIEZmPPw6KGFbVCBeFR LbUAgkEVRqULG8FiS4QUPiMVFsVI2AItVfNRZrJFk5YITrBFFpDPDgth5OPGRzCBIhPFX4BiDoDGVgGS BmCCgbBVTvVBUtZDLuXBJqZEDwLD0YSyEfLDDbEOXtUUWjYRUdRJBvqt0BGBSwKFVrAMX8KzCkMIFfFV OqBCnmHVXxEQC3HTO3DUUjKNDtWI5GQkLcOTQwNKya TxRhXIZtNHJfjc8IRKWeFVLtFMX2QhDsXOSkYTCqSIidHMKoGZQlHuHfJQFuPUSmHM4TWmCiTDHcSkW7 EFRuVMXbYKEzxg3VYDAoVQMbRlNyFaQiVJIiRSRuQCqaVCXdJALiIAF7OMYeUTHwSC0LHhWyNBTbSnH9 UUIbHEBhWETojc1HIZXkQCOpNHlrGIQvJPJwPBTwKS qtGIDjBOE2VHf9TKXzWWGgGB1AYjBdRXKsLgTzELAxJNKcFWEkzg3XSNZhETLrQxZ3WJYwBWKxOWOqQA koZUCiUPL8ZyZlKSTuTHNpNX8FZpGmIUZfMsZ9YqCgUVJiAPOvgk4JHNPoRAZnCjM6IWRvYFViGCAlEG jiKGIrAAF5JKx0BCYiJBRaXI9IMcFzSVFgXbm1ZpOf FITkQQWgph2NOLWmZXVhENX3TXThVDIiHUHuXWzlEMVsQFH4SKakSFOvQUVvEM0JAgNjGXNxRdj3UVIj PSQxYTPanr0AZFJrLKHsTCcrGGEbJFZiNAZoRGvuBMAaOLHxHLC1BITbWVQoUX9HQnRcPOBiIAF2ZYTx COLkGOHnhk6WDLMjHYL9RNg1IELlPRGqAHNyWChfQJ VcNBLsNKBxOAViDJPpXO3GZgQsISUoBMNcUdmjWEMkTFZbkt7OaVObeQqyfu5PHAdWLk8KwOkiIAJ0GK mnWr9pfOLdZXFaVTXQIw2GhbSvWLUlHKFMCLxnWHPbQFK4AvSlRFLtEZN6DwGkEIOaUdX7FDR4VzblAO T5OrhrUuV4VBYbQdW9YdI7SxnqEwOoQJUzYrGoFIbu E1IvBEaoJIW+VQ9jTGe+Lx9Ga6PikkV0gnSuWWn7DtKjPa9QOUSAN2JFSo== ID Date Data Source [id number] 07/31/2020 03:00:07 PM EDT [facility] XR CHEST FRONTAL ONLY [id number] RESULTI nterpreted by:Da George MDINDICATION: Status post seizure. Evaluation for pneumonia.TECHNIQUE: XR CHEST FRONTAL ONLY [id number], 07/31/2020 11:50 AM, 30 degrees upright.COMPARISON: 07/09/2020.FINDINGS: The chest wall and mediastinum have not changed. The pleural surfaces are chronically thickened, especially the right. The patient has scarring in the midlungs bilaterally, and in the lung apices. No new abnormalities are identified.IMPRESSION: 1. No change. No evidence of acute disease.This document has been electronically signed by Da George MD on 07/31/2020 2:57 PM Name Value Range Interpretation Code Description Data Alisson rce(s) Supporting Document(s) ID Date Data Source [id number] 07/31/2020 02:34:56 PM EDT [facility] CT HEAD WITHOUT CONTRAST [id number] RESU LTInterpreted by:Fabien Fletcher MDINDICATION: Seizure.TECHNIQUE: Noncontrast CT of the head using axial technique was performed. Automated dose lowering techniques and/or adjustment according to patient size were utilized for this exam.COMPARISON: CT head 07/25/2020.FINDINGS: Redemonstration of right convexity craniotomy and cranioplasty changes. Interval decrease in the amount of right cerebral convexity fluid collection and extra-axial pneumocephalus. Redemonstration of mass effect on the underlying right cerebral hemisphere is noted. No significant change in the left frontal mixed density extra-axial fluid collection, with minimal mass effect on the underlying left cerebral hemisphere. No new intracranial hemorrhages are identified. No midline shift is seen. No significant change in the ventriculomegaly. The basal cisterns are patent. There is no evidence for an acute territorial infarction. Paranasal sinuses are clear. Mastoid air cells are clear. Right frontoparietal bones craniotomy defect is again noted. Adjacent soft tissue swelling/fluid collection is likely due to recent procedure.IMPRESSION:1. Redemonstration of postsurgical changes from right craniotomy and cranioplasty, with decreased amount of fluid collection and pneumocephalus within the right extra-axial space.2. Unchanged left-sided extra-axial heterogeneous fluid collection.3. Additional findings as described above. This document has been electronically signed by Ysabel Pérez MD on 07/31/2020 2:32 PM Name Value Range Interpretation Code Description Data Alisson rce(s) Supporting Document(s) ID Date Data Source [id number] 07/31/2020 03:26:05 PM EDT [facility] Name Value Range Interpretation Code Description Data Alisson rce(s) Supporting Document(s) Color of Urine [facility] Clarity of Urine [facility] Specific gravity of Urine by Refractometry automated 1.006 1.003 -1.030 [facility] pH of Urine by Automated test strip 9.0 5.0-8.0 H [facility] Protein [Mass/volume] in Urine by Automated test strip Neg [facility] Glucose [Mass/volume] in Urine by Automated test strip Neg [facility] Ketones [Mass/volume] in Urine by Automated test strip Neg [facility] Bilirubin.total [Presence] in Urine by Automated test strip Negative [facility] Hemoglobin [Presence] in Urine by Automated test strip Neg [facility] Leukocyte esterase [Presence] in Urine by Automated test strip Negative [facility] Nitrite [Presence] in Urine by Automated test strip Negati ve [facility] Leukocytes [#/area] in Urine sediment by Automated count 0 /HPF 0 -5 [facility] Erythrocytes [#/area] in Urine sediment by Automated count 0 /HPF 0-3 [facility] Service comment [facility] ID Date Data Source [id number] 07/31/2020 12:39:00 PM EDT [facility] ([facility]) Name Value Range Interpretation Code Description Data Alisson rce(s) Supporting Document(s) Hemoglobin A1c/Hemoglobin.total in Blood 4.4 [facility] ([facility]) ID Date Data Source [id number] 07/31/2020 12:39:00 PM EDT [facility] ([facility]) Name Value Range Interpretation Code Description Data Alisson rce(s) Supporting Document(s) Thyroid Stimulating Hormone 3.720 [place] [facility] ([facility]) ID Date Data Source [id number] 07/31/2020 12:39:00 PM EDT [facility] ([facility]) Name Value Range Interpretation Code Description Data Alisson rce(s) Supporting Document(s) Albumin [Mass/volume] in Serum or Plasma 3.2 [facility] ([facility]) Calcium [Mass/volume] in Serum or Plasma 8.7 [facility] ([facility]) Alanine aminotransferase [Enzymatic activity/volume] in Serum or Pl asma 6 [facility] ([facility]) Carbon dioxide, total [Moles/volume] in Serum or Plasma 29 [facility] ([facility]) Protein [Mass/volume] in Serum or Plasma 7.2 [facility] ([facility]) Chloride [Moles/volume] in Serum or Plasma 99 [facility] ([facility] Alkaline phosphatase [Enzymatic activity/volume] in Serum or Plasma 1 30 [facility] ([facility]) Potassium [Moles/volume] in Serum or Plasma 3.9 [facility] ([facility]) Aspartate aminotransferase [Enzymatic activity/volume] in Serum or Plasma 21 [facility] ([facility]) Sodium 136 [facility] ([facility] Urea nitrogen [Mass/volume] in Serum or Plasma 8 [facility] ([facility]) Glucose 77 70-140 [facility] ([facility] Creatinine For GFR 0.56 [facility] ([facility]) ID Date Data Source [id number] 07/31/2020 12:39:00 PM EDT [facility] ([facility]) Name Value Range Interpretation Code Description Data Alisson rce(s) Supporting Document(s) Triglycerides 152 [facility] ([facility]) Cholesterol 234 [facility] ([facility]) Cholesterol in LDL [Mass/volume] in Serum or Plasma by calculation 16 0 [facility] ([facility]) HDL 43 [facility] ([facility] Chol/HDL Ratio Laboratory test result [facility] ([facility]) ID Date Data Source [id number] 07/31/2020 07:51:24 AM [facility] Name Value Range Interpretation Code Description Data Alisson rce(s) Supporting Document(s) Hemoglobin A1c/Hemoglobin.total in Blood by HPLC 4.4 % 4.0-6.0 [facility] Confirmed(NOTE)<5.7% Average risk of diabetes(ADA)5.7-6.4% Increased risk of diabetes(ADA)>/= 6.5% Diagnostic for diabetes(ADA) Glucose mean value [Mass/volume] in Blood Estimated fr om glycated hemoglobin 81 mg/dL <126 [facility] ID Date Data Source [id number] 07/31/2020 06:29:23 AM [facility] Name Value Range Interpretation Code Description Data Alisson rce(s) Supporting Document(s) Cholesterol [Mass/volume] in Serum or Plasma 234 mg/dL <200 [facility] Triglyceride [Mass/volume] in Serum or Plasma 152 mg/dL <150 [facility] Cholesterol in HDL [Mass/volume] in Serum or Plasma 43 mg/dL >40 [facility] Cholesterol in LDL [Mass/volume] in Serum or Plasma by calcu lation 160 mg/dL <100 H [facility] Cholesterol in VLDL [Mass/volume] in Serum or Plasma by calc ulation 30 mg/dl 16-42 [facility] Cholesterol non HDL [Mass/volume] in Serum or Plasma 191 mg/dL <130 H [facility] ID Date Data Source [id number] 07/31/2020 06:29:23 AM [facility] Value Range Interpretation Code Description Data Alisson rce(s) Supporting Document(s) Albumin [Mass/volume] in Serum or Plasma by Bromocresol green (BCG) dye binding method 3.2 g/dL 3.5-5.2 [facility] Bilirubin.total [Mass/volume] in Serum or Plasma 0.2 mg/dL <1.2 [facility] Calcium [Mass/volume] in Serum or Plasma 8.7 mg/dL 8.6-10.0 [facility] Chloride [Moles/volume] in Serum or Plasma 99 mmol/L 98-107 [facility] Creatinine [Mass/volume] in Serum or Plasma 0.56 mg/dL 0.70-1.20 L [facility] Glucose [Mass/volume] in Serum or Plasma 77 mg/dL 70-140 [facility] Alkaline phosphatase [Enzymatic activity/volume] in Serum or Plasma 130 U/L 40-129 H [facility] Potassium [Moles/volume] in Serum or Plasma 3.9 mmol/L 3.4-5.1 [facility] Hemolyzed Protein [Mass/volume] in Serum or Plasma 7.2 g/dL 6.4-8.3 [facility] Sodium [Moles/volume] in Serum or Plasma 136 mmol/L 136-145 [facility] Aspartate aminotransferase [Enzymatic activity/volume] in Serum or Plasma 21 U/L <40 [facility] Urea nitrogen [Mass/volume] in Serum or Plasma 8 mg/dL 6-20 [facility] Osmolality of Serum or Plasma by calculation 279 mosm/kg 275-300 [facility] Creatinine/Urea nitrogen [Mass Ratio] in Serum or Plasma 14 [facility] Bicarbonate [Moles/volume] in Serum 29 mmol/L 22-29 [facility] Alanine aminotransferase [Enzymatic activity/volume] in Seru m or Plasma 6 U/L <41 [facility] Anion gap 3 in Serum or Plasma 8 mmol/L 8-15 [facility] Glomerular filtration rate/1.73 sq M pre dicted among non-blacks [Volume Rate/Area] in Serum or Plasma by Creatinine-based formula (MDRD) >6 0 [facility] Glomerular filtration rate/1.73 sq M pre dicted among blacks [Volume Rate/Area] in Serum or Plasma by Creatinine-based formula (MDRD) >60 [facility] ID Date Data Source [id number] 07/31/2020 06:29:23 AM [facility] Name Value Range Interpretation Code Description Data Alisson rce(s) Supporting Document(s) Thyrotropin [Units/volume] in Serum or Plasma 3.720 u[IU]/mL 0.270-4. 200 [facility] ID Date Data Source [id number] 07/31/2020 07:38:48 AM [facility] Name Value Range Interpretation Code Description Data Alisson rce(s) Supporting Document(s) Leukocytes [#/volume] in Blood by Automated count 5.4 10*3/uL 4-10 [facility] Erythrocytes [#/volume] in Blood by Automated count 4.33 10*6/uL 4.6- 6.1 L [facility] Hemoglobin [Mass/volume] in Blood 12.0 g/dL 13.5-18 L [facility] Hematocrit [Volume Fraction] of Blood by Automated count 37.3 % 4 1-53 L [facility] Erythrocyte mean corpuscular volume [Entitic volume] by Auto mated count 86.2 fL 80-96 [facility] Erythrocyte mean corpuscular hemoglobin [Entitic mass] by Automated count 27.6 pg 27-33 [facility] Erythrocyte mean corpuscular hemoglobin concentration [Mass/volume] by Automated count 32.0 g/dL 32.0-36.0 [facility] E[facility] distribution width [Ratio] by Automated count 18.4 % 11.5-14.5 H [facility] Platelets [#/volume] in Blood by Automated count 137 10*3/uL 150-400 L [facility] Confirmed ID Date Data Source [id number] 07/31/2020 12:29:02 AM EDT [facility] Name Value Range Interpretation Code Description Data Alisson rce(s) Supporting Document(s) Bicarbonate [Moles/volume] in Serum 28 mmol/L 22-29 [facility] Chloride [Moles/volume] in Serum or Plasma 95 mmol/L 98-107 L [facility] Creatinine [Mass/volume] in Serum or Plasma 0.61 mg/dL 0.70-1.20 L [facility] Glucose [Mass/volume] in Serum or Plasma 100 mg/dL 70-140 [facility] Potassium [Moles/volume] in Serum or Plasma 4.0 mmol/L 3.4-5.1 [facility] Hemolyzed Sodium [Moles/volume] in Serum or Plasma 132 mmol/L 136-145 L [facility] Urea nitrogen [Mass/volume] in Serum or Plasma 10 mg/dL 6-20 [facility] Anion gap 3 in Serum or Plasma 9 mmol/L 8-15 [facility] Osmolality of Serum or Plasma by calculation 273 mosm/kg 275-300 L [facility] Creatinine/Urea nitrogen [Mass Ratio] in Serum or Plasma 16 [facility] Calcium [Mass/volume] in Serum or Plasma 8.3 mg/dL 8.6-10.0 L [facility] Glomerular filtration rate/1.73 sq M pre dicted among non-blacks [Volume Rate/Area] in Serum or Plasma by Creatinine-based formula (MDRD) >6 0 [facility] Glomerular filtration rate/1.73 sq M pre dicted among blacks [Volume Rate/Area] in Serum or Plasma by Creatinine-based formula (MDRD) >60 [facility] ID Date Data Source [id number] 07/31/2020 12:29:02 AM [facility] Name Value Range Interpretation Code Description Data Alisson rce(s) Supporting Document(s) Valproate [Mass/volume] in Serum or Plasma 72 ug/ml 50-100 [facility] ID Date Data Source [id number] 07/31/2020 12:28:06 AM [facility] Name Value Range Interpretation Code Description Data Alisson rce(s) Supporting Document(s) Ammonia [Moles/volume] in Plasma 70 umol/L 16-60 H [facility] ID Date Data Source [id number] 07/30/2020 11:42:43 PM [facility] Name Value Range Interpretation Code Description Data Alisson rce(s) Supporting Document(s) Glucose [Mass/volume] in Capillary blood by Glucometer 96 mg/dL 70- 140 [facility] ID Date Data Source [id number] 07/28/2020 06:44:37 PM [facility] FLUORO RAD EXAM SWALLOWING FUNCTION CINE WITH SPEECH PATH (FORMERLY MODIFIED BARIUM SWALLOW) [id number] RESULTInterpreted by:REJI MortonLINICAL HISTORY: DysphasiaCOMPARISON: No prior swallowing function exams available for comparison at the time of dictation.TECHNIQUE: Barium products of varying consistencies were administered by the speech pathologist under fluoroscopic guidance.FLUOROSCOPY TIME: 2.2 minutes.FLUOROSCOPY DOSE: 17.13 mGy.FINDINGS: No residual contrast seen involving the vallecula. No undersurface penetration or aspiration demonstrated. Additional information is available and report from the speech pathologist.IMPRESSION: Modified barium swallowing study performed. No undersurface penetration or aspiration demonstrated. Please refer to speech pathologist report for full evaluation and recommendations.This document has been electronically signed by Radu De La Rosa MD on 07/28/2020 6:42 PM Name Value Range Interpretation Code Description Data Alisson rce(s) Supporting Document(s) ID Date Data Source [id number] 07/28/2020 05:51:12 AM [facility] Name Value Range Interpretation Code Description Data Alisson rce(s) Supporting Document(s) Thyroxine (T4) free [Mass/volume] in Serum or Plasma 0.92 ng/dL 0.93- 1.70 L [facility] ID Date Data Source [id number] 07/28/2020 05:51:12 AM [facility] Value Range Interpretation Code Description Data Alisson rce(s) Supporting Document(s) Thyrotropin [Units/volume] in Serum or Plasma 5.460 u[IU]/mL 0.270-4. 200 H [facility] ID Date Data Source [id number] 07/28/2020 05:51:12 AM [facility] Value Range Interpretation Code Description Data Alisson rce(s) Supporting Document(s) Phosphate [Mass/volume] in Serum or Plasma 4.2 mg/dL 2.5-4.5 [facility] ID Date Data Source [id number] 07/28/2020 05:51:12 AM [facility] Value Range Interpretation Code Description Data Alisson rce(s) Supporting Document(s) Bicarbonate [Moles/volume] in Serum 31 mmol/L 22-29 H [facility] Chloride [Moles/volume] in Serum or Plasma 96 mmol/L 98-107 L [facility] Creatinine [Mass/volume] in Serum or Plasma 0.56 mg/dL 0.70-1.20 L [facility] Glucose [Mass/volume] in Serum or Plasma 74 mg/dL 70-140 [facility] Potassium [Moles/volume] in Serum or Plasma 3.9 mmol/L 3.4-5.1 [facility] Sodium [Moles/volume] in Serum or Plasma 135 mmol/L 136-145 L [facility] Urea nitrogen [Mass/volume] in Serum or Plasma 7 mg/dL 6-20 [facility] Anion gap 3 in Serum or Plasma 8 mmol/L 8-15 [facility] Osmolality of Serum or Plasma by calculation 277 mosm/kg 275-300 [facility] Creatinine/Urea nitrogen [Mass Ratio] in Serum or Plasma 13 [facility] Calcium [Mass/volume] in Serum or Plasma 8.6 mg/dL 8.6-10.0 [facility] Glomerular filtration rate/1.73 sq M pre dicted among non-blacks [Volume Rate/Area] in Serum or Plasma by Creatinine-based formula (MDRD) >6 0 [facility] Glomerular filtration rate/1.73 sq M pre dicted among blacks [Volume Rate/Area] in Serum or Plasma by Creatinine-based formula (MDRD) >60 [facility] ID Date Data Source [id number] 07/28/2020 05:51:12 AM [facility] Name Value Range Interpretation Code Description Data Alisson rce(s) Supporting Document(s) Magnesium [Mass/volume] in Serum or Plasma 1.7 mg/dL 1.6-2.6 [facility] ID Date Data Source [id number] 07/28/2020 08:38:01 AM [facility] Name Value Range Interpretation Code Description Data Alisson rce(s) Supporting Document(s) Leukocytes [#/volume] in Blood by Automated count 5.6 10*3/uL 4-10 [facility] Erythrocytes [#/volume] in Blood by Automated count 4.37 10*6/uL 4.6- 6.1 L [facility] Hemoglobin [Mass/volume] in Blood 12.0 g/dL 13.5-18 L [facility] Hematocrit [Volume Fraction] of Blood by Automated count 38.0 % 4 1-53 L [facility] Erythrocyte mean corpuscular volume [Entitic volume] by Auto mated count 86.9 fL 80-96 [facility] Erythrocyte mean corpuscular hemoglobin [Entitic mass] by Automated count 27.4 pg 27-33 [facility] Erythrocyte mean corpuscular hemoglobin concentration [Mass/volume] by Automated count 31.5 g/dL 32.0-36.0 [facility] E[facility]th[facility] distribution width [Ratio] by Automated count 18.7 % 11.5-14.5 H [facility] Platelets [#/volume] in Blood by Automated count 158 10*3/uL 150-400 [facility] Confirmed Differential cell count method - Blood [facility] Neutrophils/100 leukocytes in Blood by Automated count 49 % [facility] Lymphocytes/100 leukocytes in Blood by Automated count 35 % [facility] Monocytes/100 leukocytes in Blood by Automated count 12 % [facility] Eosinophils/100 leukocytes in Blood by Automated count 3 % [facility] Basophils/100 leukocytes in Blood by Automated count 1 % [facility] Neutrophils [#/volume] in Blood by Automated count 2.74 10*3/uL 1.8-7 .0 [facility] Lymphocytes [#/volume] in Blood by Automated count 1.98 10*3/uL 1.2-4 .0 [facility] Monocytes [#/volume] in Blood by Automated count 0.69 10*3/uL 0-0.8 [facility] Eosinophils [#/volume] in Blood by Automated count 0.15 10*3/uL 0-0.5 [facility] Basophils [#/volume] in Blood by Automated count 0.05 10*3/uL 0-0.2 [facility] Nucleated erythrocytes/100 leukocytes [Ratio] in Blood by Automated count 0 /100{WBCs} 0-0 [facility] ID Date Data Source [id number] 07/25/2020 02:44:08 PM EDT [facility] CT HEAD WITHOUT CONTRAST [id number] RESU LTInterpreted by:Joseph Teran MDINDICATION:54-year-old male, post traumatic subdural bleed and surgery. Headache, dizziness, and nauseous. TECHNIQUE:Axial, noncontrast CT images from the skull base to the vertex without intravenous contrast. Automated dose lowering techniques and/or adjustment according to patient size were utilized for this exam.COMPARISON:Noncontrast CT head, 07/24/2020, and prior noncontrast CT head dating back to 09/20/2004. FINDINGS:There is redemonstration of right convexity craniotomy and cranioplasty changes. No change in the underlying right cerebral convexity fluid collection and extra-axial pneumocephalus, with mass effect on the right cerebral hemisphere, since the prior exams from 07/24/2020. The left frontal convexity hypodense extra-axial fluid collection is not significantly changed in size. There is no change in mild diffuse ventriculomegaly. No midline shift is evident.The basal cisterns and foramen magnum are patent. Hypoattenuation within bilateral inferior frontal lobes and right inferior anterior temporal lobe likely related to evolving encephalomalacia is unchanged.IMPRESSION:1. No significant interval change in the right craniotomy and cranioplasty changes with underlying right cerebral convexity fluid collection and extra-axial pneumocephalus.2. No change in the left frontal convexity hypodense extra-axial fluid collection.3. No significant interval change in the mild diffuse ventriculomegaly.4. Evolving encephalomalacia in the inferior bilateral frontal lobes, and anteroinferior right temporal lobe.This document has been electronically signed by Salvador Vyas MD on 07/25/2020 2:41 PM Name Value Range Interpretation Code Description Data Alisson rce(s) Supporting Document(s) ID Date Data Source [id number] 07/28/2020 01:06:11 PM EDT [facility] Name Value Range Interpretation Code Description Data Alisson rce(s) Supporting Document(s) Valproate Free [Mass/volume] in Serum or Plasma 49.2 ug/mL 6.0-22.0 H [facility] Called to and read back byNELL Kern ON 2N AT 0715 BY 2045(NOTE)Results confirmed ondilution. Detection Limit = 0.5Patient drug level exceeds published reference range. Evaluateclinically for signs of potential toxicity.Performed At: [facility] [id number] Ibarra MD Ph:[phone] ID Date Data Source [id number] [facility]2020 [facility]:44[facility] Interpretation Code Description Data Alisson rce(s) Supporting Document(s) Valproate [Mass/volume] in Serum or Plasma 68 ug/ml 50-100 [facility] ID Date Data Source [id number] 07/25/2020 10:39:26 AM EDT [facility] Name Value Range Interpretation Code Description Data Alisson rce(s) Supporting Document(s) Consultation [facility] NKOPZb5kVlRAJoAi85/PNZatFIEtc7InPGspNIl9KSsgXYGcJ0CfICI8kZ4bVYO7MMoRVzLqVuHaJNSp [facility] [file] ICAgICAgICAgICAgICAgICAgICAgICAgICAgICAgICAgICAgICAgICAgICAgICAgICAgICAgICAgICAg ICAgICAgICAgICAgICAgICAgICAgICAgICAgICANCi AgICAgICAgICAgICAgICAgICAgICAgICAgICAgICAgICAgICAgICAgICAgICAgICAgICAgICAgICAgIC AgICAgICAgICAgICAgICAgICAgICAgICAgICAgICAgICAgICAgICANCiAgICAgICAgICAgICAgICAgIC AgICAgICAgICAgICAgICAgICAgICAgICAgICAgICAg ICAgICAgICAgICAgICAgICAgICAgICAgICAgICAgICAgICAgICAgICAgICAgICAgICANCiAgICAgICAg ICAgICAgICAgICAgICAgICAgICAgICAgICAgICAgICAgICAgICAgICAgICAgICAgICAgICAgICAgICAg ICAgICAgICAgICAgICAgICAgICAgICAgICAgICAgIC ANCiAgICAgICAgICAgICAgICAgICAgICAgICAgICAgICAgICAgICAgICAgICAgICAgICAgICAgICAgIC AgICAgICAgICAgICAgICAgICAgICAgICAgICAgICAgICAgICAgICAgICANCiAgICAgICAgICAgICAgIC AgICAgICAgICAgICAgICAgICAgICAgICAgICAgICAg ICAgICAgICAgICAgICAgICAgICAgICAgICAgICAgICAgICAgICAgICAgICAgICAgICAgICANCiAgICAg ICAgICAgICAgICAgICAgICAgICAgICAgICAgICAgICAgICAgICAgICAgICAgICAgICAgICAgICAgICAg ICAgICAgICAgICAgICAgICAgICAgICAgICAgICAgIC AgICANCiAgICAgICAgICAgICAgICAgICAgICAgICAgICAgICAgICAgICAgICAgICAgICAgICAgICAgIC AgICAgICAgICAgICAgICAgICAgICAgICAgICAgICAgICAgICAgICAgICAgICANCiAgICAgICAgICAgIC AgICAgICAgICAgICAgICAgICAgICAgICAgICAgICAg ICAgICAgICAgICAgICAgICAgICAgICAgICAgICAgICAgICAgICAgICAgICAgICAgICAgICAgICANCiAg ICAgICAgICAgICAgICAgICAgICAgICAgICAgICAgICAgICAgICAgICAgICAgICAgICAgICAgICAgICAg ICAgICAgICAgICAgICAgICAgICAgICAgICAgICAgIC AgICAgICANCjw/vTVlH1vzdMNiqhM4Q2guIw5BYy6DIY5mj3AdHPWzZMrpqmGsTocYOtOjRAHdWmxRYb r1HVgcNB5RiPDfG3DqE1MbTOwaNL9USIOjDOWvoYXaGLKqTHUqFxJ0JMSoXIjyRR3HoHOgYWbeLNJaTA IgNyAwIFIgOSAwIFIgMTEgMCBSIDEzIDAgUiAxNSAw RSYoXTprFZIMXD6RZmJcD5NggP19EBtTLy8+XGciqwYjLzjKQmOaQGQvh2CzLEd7DZ1IOXYgMxvuw1Uc RIFvEXTOKYtiFD9VUVR4PBKdDXHnIs8XWAFtX640ujCtVL4PYk3IGfTvIA3hgk3YVISuJQPpEtrKBpi0 BYkvXX0XoTBpMUdYz05nySw6kmAavVPHUXBpOHP7RV vmdHLaPR9UQjXuRTQqCBZjEdAiZeGjPCSmYoswFfNXSJgCHkZyQ5Sgp5UvAuF7JILjWhJjMPlkONUaVs F0OG81wMqnFB7LYYXuBANsSB16JICoEUTdXz9FJm8DBiLjON0kad3UOLSdNWMcCozADcm6MVrdSW5VzR ZzA9WgpKEkj1lGIkUpO1KFLIW6YRRrOg6HMKQtWhBc IVZlPLdtIR7iVNOhQQOEeRaskgU5GN2CLP5lhxUuVA3EAsDjHu3tCo7RBbLuU4CkZ6DrEBAnUSETIWac JB9RZUmzUQ9lGT8Wu1CHfQEgzJ6bbl1URXNsSZCuWhmszw2RNatvN8H4xMnkELFeTAUaADRETVhyZR3P CNSqSDL9SPWvDJHbJTSVRhIeV15eKE0WT6Fto36pAj N7KXKzAnIsYIcfZF62pBfqgaDprCGyyVtgHO3ULo4+DQplbmRvYmoNCnhyZWYNCjAgNDMNCjAwMDAwMD NwAOJqVnL5SyPyQo3HSEQqPJKpJEHeHgVpQTEjLHNjYZaiEACxQZUrXdosAIDgAPEvMK5NCuXjUQXrQZ D4KCIvNRDdUWOxuy1PJFHbFKYjMTB5UvUjFVUmGAPi GYabTPYuVCT9NFL9UWKgGDKyQM0VQzWcUHCgNAZaYWOvRHOtZOQftu0YFBHlPQMqYnI6JFKzRSIpAXLl DZfmRIClUEU6SiC4BSDjVOZyEF2MTmHnWGShBUAzTFVdADUhZHMlho2PUQFiHVVvLBXwTYSpYGGcZOTw QGhlCKBkGYKvIgR3JZGvHSXmMY0ZKwDrLBIlKGH2VR YzIHDfLCEoxn5IFGIsVKEtQvH1OOYyCKIaMHCnDWzcHDJaOYT7VDT8YICfQIMmGA9KKqPmIYLbDeXmFs KaMBCyIHBqdz3PIXSiVGZeRTAeQXGvJQTnHYVdHOuzKHHzFLLiPPYxDLHnKUKwEA8LJlElPCWlSjN0HF dzHNUpDHGptn6JMLCmPREiMXO8TIRoKOXiXFVtJJsb GDVeKDO4IrG1HFOoJORyIX5VXbMtDNIqAoW9BGiqLHPjVNAigj7IKACuCTKpUIueRtAmAEKqHJYcEUss WLEiIYM8GPI3TAZlVVBfPB6YVsOiZGPvTxClJFanFFFuDANcej1XTKDjSPFeEcT2NkMmPDTrVWZzZZyx VOTrZNA0GQD0TNVzTUXnBI3FPaGsQMOsPpq5YujkIR PgSEEeer0EXQQyRXHyJZG2ItUaAQJdFRHiFYzuLKJpITR9OIR1ENNaOBPdUG5ILvEbAYQcSbieURJkQV NlVUBsek0SXKPlURXrOYs5QJLgQURzQULyCIseZZVeCHCqQQX2MLOpALBgGB6PXoGfNNZyCyUnHJJoXS QtCHHwan1ZDQZuXCP7HLfoQPCnMWFnKXJrDPriDZXx MEBvWZX4OCHeSFKvQS2JYgXjEOCzSTOsNkYaCDAfDNGifv8DVIWkBFR1ReNlKFRdJQSuMZHnVDetPNLj UBWeVsWrVHJhGHYxID0RLmEqXHHhVWXvTZFlPZBuBVIfgs2RYRNhNBQ2LUA0LOBaRWVuQBDxXDeuYCXg JEI2VsX1BTVqLWTaLP4FXnZvVVBlATS3BMEuBNZhEL Oiyo5XhMIlkOdaac5RQYvOPh2KdMygHOVbFBveTp7fxOJ8YhReXAZVDv4WeyViLTOtKOQVJNdrBZYqCU L2OFX6RUpdAqRlVqWvAZbhAYVtEjPxILO2HZPxRXEzGnG8GEdyNMp1LENkW0UzUTU8GQF0LZXyPlMmOP Z1DMAiP8O+ZT8uVOj+Ko9Wy2HrtwB1teKrDBt9XZDeBi5EEWGDM3LVTz== ID Date Data Source [id number] 07/25/2020 07:10:37 AM EDT [facility] Name Value Range Interpretation Code Description Data Alisson rce(s) Supporting Document(s) Leukocytes [#/volume] in Blood by Automated count 5.5 10*3/uL 4-10 [facility] Erythrocytes [#/volume] in Blood by Automated count 4.14 10*6/uL 4.6- 6.1 L [facility] Hemoglobin [Mass/volume] in Blood 11.3 g/dL 13.5-18 L [facility] Hematocrit [Volume Fraction] of Blood by Automated count 35.7 % 4 1-53 L [facility] Erythrocyte mean corpuscular volume [Entitic volume] by Auto mated count 86.1 fL 80-96 [facility] Erythrocyte mean corpuscular hemoglobin [Entitic mass] by Automated count 27.3 pg 27-33 [facility] Erythrocyte mean corpuscular hemoglobin concentration [Mass/volume] by Automated count 31.8 g/dL 32.0-36.0 [facility] width [Ratio] by Automated count 19.1 % 11.5-14.5 H [facility] Platelets [#/volume] in Blood by Automated count 178 10*3/uL 150-400 [facility] Differential cell count method - Blood [facility] Neutrophils/100 leukocytes in Blood by Automated count 43 % [facility] Lymphocytes/100 leukocytes in Blood by Automated count 40 % [facility] Monocytes/100 leukocytes in Blood by Automated count 13 % [facility] Eosinophils/100 leukocytes in Blood by Automated count 3 % [facility] Basophils/100 leukocytes in Blood by Automated count 1 % [facility] Neutrophils [#/volume] in Blood by Automated count 2.43 10*3/uL 1.8-7 .0 [facility] Lymphocytes [#/volume] in Blood by Automated count 2.18 10*3/uL 1.2-4 .0 [facility] Monocytes [#/volume] in Blood by Automated count 0.73 10*3/uL 0-0.8 [facility] Eosinophils [#/volume] in Blood by Automated count 0.14 10*3/uL 0-0.5 [facility] Basophils [#/volume] in Blood by Automated count 0.05 10*3/uL 0-0.2 [facility] Nucleated erythrocytes/100 leukocytes [Ratio] in Blood by Automated count 0 /100{WBCs} 0-0 [facility] ID Date Data Source [id number] 07/25/2020 08:27:45 AM [facility] Name Value Range Interpretation Code Description Data Alisson rce(s) Supporting Document(s) Phosphate [Mass/volume] in Serum or Plasma 3.9 mg/dL 2.5-4.5 [facility] ID Date Data Source [id number] 07/25/2020 08:27:45 AM [facility] Name Value Range Interpretation Code Description Data Alisson rce(s) Supporting Document(s) Bicarbonate [Moles/volume] in Serum 32 mmol/L 22-29 [facility] Chloride [Moles/volume] in Serum or Plasma 99 mmol/L 98-107 [facility] Creatinine [Mass/volume] in Serum or Plasma 0.56 mg/dL 0.70-1.20 L [facility] Glucose [Mass/volume] in Serum or Plasma 76 mg/dL 70-140 [facility] Potassium [Moles/volume] in Serum or Plasma 3.7 mmol/L 3.4-5.1 [facility] Sodium [Moles/volume] in Serum or Plasma 137 mmol/L 136-145 [facility] Urea nitrogen [Mass/volume] in Serum or Plasma 6 mg/dL 6-20 [facility] Anion gap 3 in Serum or Plasma 6 mmol/L 8-15 L [facility] Osmolality of Serum or Plasma by calculation 280 mosm/kg 275-300 [facility] Creatinine/Urea nitrogen [Mass Ratio] in Serum or Plasma 11 [facility] Calcium [Mass/volume] in Serum or Plasma 8.6 mg/dL 8.6-10.0 [facility] Glomerular filtration rate/1.73 sq M pre dicted among non-blacks [Volume Rate/Area] in Serum or Plasma by Creatinine-based formula (MDRD) >6 0 [facility] Glomerular filtration rate/1.73 sq M pre dicted among blacks [Volume Rate/Area] in Serum or Plasma by Creatinine-based formula (MDRD) >60 [facility] ID Date Data Source [id number] [facility] Interpretation Code Description Data Alisson rce(s) Supporting Document(s) Magnesium [Mass/volume] in Serum or Plasma 1.7 mg/dL 1.6-2.6 [facility] ID Date Data Source [id number] [facility]2020 12:27[facility] [facility] [id number] RESU LTInterpreted by:Marin Mensah, Benjamin Moncada, MDCT HEAD WITHOUT CONTRAST [id number]: new seizure like activity TECHNIQUE: Contiguous axial CT images of the head from the base of the skull to the vertex without IV contrast. Automated dose lowering techniques and/or adjustment according to patient size were utilized for this exam.COMPARISON: CT head from 07/09/2020.FINDINGS: Redemonstration of right-sided cranioplasty. There is interval decrease in size of the extra-axial air fluid collection adjacent to the cranioplasty site which now measures 1.3 cm (previous 1.9 cm). The left subdural collection has also decreased in size and measures 0.7 cm (previous 1.1 cm). There is decreased mass effect effect upon the bilateral frontal lobes. There is interval resolution of the previously seen interhemispheric subdural collection. Hypodensity in the right frontal lobe is unchanged. There is no evidence of a new large territorial infarct or intracrani al hemorrhage. There is no midline shift. The ventricular system size is unchanged when compared to the previous exam. The basal cisterns are patent. The partially visualized paranasal and maxillary sinuses are clear. IMPRESSION:1. Interval decrease in size of bilateral extra-axial fluid collections.2. No acute intracranial pathology.This document has been electronically signed by Marin Mensah MD on 07/24/2020 12:24 PM Name Value Range Interpretation Code Description Data Alisson rce(s) Supporting Document(s) ID Date Data Source [id number] 07/24/2020 07:41:22 AM [facility] Name Value Range Interpretation Code Description Data Alisson rce(s) Supporting Document(s) Leukocytes [#/volume] in Blood by Automated count 5.0 10*3/uL 4-10 [facility] Erythrocytes [#/volume] in Blood by Automated count 4.19 10*6/uL 4.6- 6.1 L [facility] Hemoglobin [Mass/volume] in Blood 11.8 g/dL 13.5-18 L [facility] Hematocrit [Volume Fraction] of Blood by Automated count 36.4 % 4 1-53 L [facility] Erythrocyte mean corpuscular volume [Entitic volume] by Auto mated count 86.9 fL 80-96 [facility] Erythrocyte mean corpuscular hemoglobin [Entitic mass] by Automated count 28.3 pg 27-33 [facility] Erythrocyte mean corpuscular hemoglobin concentration [Mass/volume] by Automated count 32.5 g/dL 32.0-36.0 [facility] width [Ratio] by Automated count 19.3 % 11.5-14.5 H [facility] Platelets [#/volume] in Blood by Automated count 192 10*3/uL 150-400 [facility] Differential cell count method - Blood [facility] Neutrophils/100 leukocytes in Blood by Automated count 60 % [facility] Lymphocytes/100 leukocytes in Blood by Automated count 27 % [facility] Monocytes/100 leukocytes in Blood by Automated count 10 % [facility] Eosinophils/100 leukocytes in Blood by Automated count 2 % [facility] Basophils/100 leukocytes in Blood by Automated count 1 % [facility] Neutrophils [#/volume] in Blood by Automated count 2.96 10*3/uL 1.8-7 .0 [facility] Lymphocytes [#/volume] in Blood by Automated count 1.36 10*3/uL 1.2-4 .0 [facility] Monocytes [#/volume] in Blood by Automated count 0.52 10*3/uL 0-0.8 [facility] Eosinophils [#/volume] in Blood by Automated count 0.11 10*3/uL 0-0.5 [facility] Basophils [#/volume] in Blood by Automated count 0.04 10*3/uL 0-0.2 [facility] Nucleated erythrocytes/100 leukocytes [Ratio] in Blood by Automated count 0 /100{WBCs} 0-0 [facility] ID Date Data Source [id number] 07/24/2020 08:09:41 AM EDT [facility] Name Value Range Interpretation Code Description Data Alisson rce(s) Supporting Document(s) Bicarbonate [Moles/volume] in Serum 32 mmol/L 22-29 [facility] Chloride [Moles/volume] in Serum or Plasma 100 mmol/L 98-107 [facility] Creatinine [Mass/volume] in Serum or Plasma 0.52 mg/dL 0.70-1.20 L [facility] Glucose [Mass/volume] in Serum or Plasma 96 mg/dL 70-140 [facility] Potassium [Moles/volume] in Serum or Plasma 3.8 mmol/L 3.4-5.1 [facility] Sodium [Moles/volume] in Serum or Plasma 138 mmol/L 136-145 [facility] Urea nitrogen [Mass/volume] in Serum or Plasma 5 mg/dL 6-20 L [facility] Anion gap 3 in Serum or Plasma 6 mmol/L 8-15 L [facility] Osmolality of Serum or Plasma by calculation 283 mosm/kg 275-300 [facility] Creatinine/Urea nitrogen [Mass Ratio] in Serum or Plasma 10 [facility] Calcium [Mass/volume] in Serum or Plasma 8.8 mg/dL 8.6-10.0 [facility] Glomerular filtration rate/1.73 sq M pre dicted among non-blacks [Volume Rate/Area] in Serum or Plasma by Creatinine-based formula (MDRD) >6 0 [facility] Glomerular filtration rate/1.73 sq M pre dicted among blacks [Volume Rate/Area] in Serum or Plasma by Creatinine-based formula (MDRD) >60 [facility] ID Date Data Source [id number] 07/24/2020 08:09:[address] [facility] Value Range Interpretation Code Description Data Alisson rce(s) Supporting Document(s) Magnesium [Mass/volume] in Serum or Plasma 1.7 mg/dL 1.6-2.6 [facility] ID Date Data Source [id number] 07/24/2020 08:09:[address] [facility] Value Range Interpretation Code Description Data Alisson rce(s) Supporting Document(s) Phosphate [Mass/volume] in Serum or Plasma 3.2 mg/dL 2.5-4.5 [facility] ID Date Data Source [id number] 07/24/2020 02:19:17 AM [facility] Value Range Interpretation Code Description Data Alisson rce(s) Supporting Document(s) Valproate [Mass/volume] in Serum or Plasma 61 ug/ml 50-100 [facility] ID Date Data Source [id number] 07/24/2020 02:19:17 AM [facility] Name Value Range Interpretation Code Description Data Alisson rce(s) Supporting Document(s) Ammonia [Moles/volume] in Plasma 37 umol/L 16-60 [facility] ID Date Data Source [id number] 07/24/2020 01:21:30 AM EDT [facility] Name Value Range Interpretation Code Description Data Alisson rce(s) Supporting Document(s) Leukocytes [#/volume] in Blood by Automated count 6.1 10*3/uL 4-10 [facility] Erythrocytes [#/volume] in Blood by Automated count 4.14 10*6/uL 4.6- 6.1 L [facility] Hemoglobin [Mass/volume] in Blood 11.4 g/dL 13.5-18 L [facility] Hematocrit [Volume Fraction] of Blood by Automated count 35.6 % 4 1-53 L [facility] Erythrocyte mean corpuscular volume [Entitic volume] by Auto mated count 86.0 fL 80-96 [facility] Erythrocyte mean corpuscular hemoglobin [Entitic mass] by Automated count 27.7 pg 27-33 [facility] Erythrocyte mean corpuscular hemoglobin concentration [Mass/volume] by Automated count 32.2 g/dL 32.0-36.0 [facility] width [Ratio] by Automated count 19.0 % 11.5-14.5 [facility] Platelets [#/volume] in Blood by Automated count 194 10*3/uL 150-400 [facility] Differential cell count method - Blood [facility] Neutrophils/100 leukocytes in Blood by Automated count 42 % [facility] Lymphocytes/100 leukocytes in Blood by Automated count 41 % [facility] Monocytes/100 leukocytes in Blood by Automated count 15 % [facility] Eosinophils/100 leukocytes in Blood by Automated count 2 % [facility] Basophils/100 leukocytes in Blood by Automated count 0 % [facility] Neutrophils [#/volume] in Blood by Automated count 2.53 10*3/uL 1.8-7 .0 [facility] Lymphocytes [#/volume] in Blood by Automated count 2.51 10*3/uL 1.2-4 .0 [facility] Monocytes [#/volume] in Blood by Automated count 0.93 10*3/uL 0-0.8 [facility] Eosinophils [#/volume] in Blood by Automated count 0.12 10*3/uL 0-0.5 [facility] Basophils [#/volume] in Blood by Automated count 0.02 10*3/uL 0-0.2 [facility] Nucleated erythrocytes/100 leukocytes [Ratio] in Blood by Automated count 0 /100{WBCs} 0-0 [facility] ID Date Data Source [id number] 07/24/2020 01:48:28 AM [facility] Name Value Range Interpretation Code Description Data Alisson rce(s) Supporting Document(s) Albumin [Mass/volume] in Serum or Plasma by Bromocresol green (BCG) dye binding method 3.1 g/dL 3.5-5.2 [facility] Bilirubin.total [Mass/volume] in Serum or Plasma 0.2 mg/dL <1.2 [facility] Bilirubin.direct [Mass/volume] in Serum or Plasma <0.3 [facility] Alkaline phosphatase [Enzymatic activity/volume] in Serum or Plasma 178 U/L 40-129 [facility] Aspartate aminotransferase [Enzymatic activity/volume] in Serum or Plasma 20 U/L <40 [facility] Alanine aminotransferase [Enzymatic activity/volume] in Seru m or Plasma 14 U/L <41 [facility] Protein [Mass/volume] in Serum or Plasma 7.2 g/dL 6.4-8.3 [facility] ID Date Data Source [id number] 07/24/2020 01:48:28 AM [facility] Name Value Range Interpretation Code Description Data Alisson rce(s) Supporting Document(s) Prolactin [Mass/volume] in Serum or Plasma 76.3 ng/ml 4.0-15.2 H [facility] ID Date Data Source [id number] 07/24/2020 01:48:28 AM [facility] Value Range Interpretation Code Description Data Alisson rce(s) Supporting Document(s) Bicarbonate [Moles/volume] in Serum 30 mmol/L 22-29 [facility] Chloride [Moles/volume] in Serum or Plasma 94 mmol/L 98-107 [facility] Creatinine [Mass/volume] in Serum or Plasma 0.57 mg/dL 0.70-1.20 L [facility] Glucose [Mass/volume] in Serum or Plasma 97 mg/dL 70-140 [facility] Potassium [Moles/volume] in Serum or Plasma 3.8 mmol/L 3.4-5.1 [facility] Sodium [Moles/volume] in Serum or Plasma 130 mmol/L 136-145 L [facility] Urea nitrogen [Mass/volume] in Serum or Plasma 7 mg/dL 6-20 [facility] Anion gap 3 in Serum or Plasma 6 mmol/L 8-15 L [facility] Osmolality of Serum or Plasma by calculation 268 mosm/kg 275-300 L [facility] Creatinine/Urea nitrogen [Mass Ratio] in Serum or Plasma 12 [facility] Calcium [Mass/volume] in Serum or Plasma 9.0 mg/dL 8.6-10.0 [facility] Glomerular filtration rate/1.73 sq M pre dicted among non-blacks [Volume Rate/Area] in Serum or Plasma by Creatinine-based formula (MDRD) >6 0 [facility] Glomerular filtration rate/1.73 sq M pre dicted among blacks [Volume Rate/Area] in Serum or Plasma by Creatinine-based formula (MDRD) >60 [facility] ID Date Data Source [id number] 07/24/2020 12:55:50 AM EDT [facility] Name Value Range Interpretation Code Description Data Alisson rce(s) Supporting Document(s) Glucose [Mass/volume] in Capillary blood by Glucometer 96 mg/dL 70- 140 [facility] ID Date Data Source [id number] 07/23/2020 01:31:12 AM [facility] Name Value Range Interpretation Code Description Data Alisson rce(s) Supporting Document(s) Discharge Summary [facility] DGEXUu8rBxIZZpLs36/OZVrzZWTgw1XcLTepKYh3FZyyXJYsW7CaUEP7gS6lRZV3YRtRKrVgLjRvNDE[facility] [file] Belt Brander/xt/YfP3orKRxvE5wWMkfuf15XsyMm3PkIVQBQw93tPhd7Tths9aEfW1tsjAG2keGNhsqDZmp0GZzq [file] director of operations for therapy/ydg3V9JXXtpTsPtFk24RdmsVhA0cGgl9yscfMrznToYR22no8X0q8fIsLfKVfg6W0cvM5N+qifDsB 5n7RpQtkhmyHALhT/1pJ+0pK6xHJN6T+jZKOBDwj4A zSQdXUE6/UCY87fC3MAnSX11boQL8qvRoQDDCYPB4D3XTRcWP7BiDEE5YTQT+vQ5RL3B5NLBR+FZD+w7 pJc+VglvzojaezPH1RUu+/yDJoJBaCQ0lbjWBIcfyfFKbqk7cwC5JfnRGgrUPIbjbGma1zl0jxQPRHIE CwsbleGWMexoMCN8YctbxkzmxQPSw63xaOQNV5bAYR A1GKgV5xRYBYFzacD94eMDwe5xca79lalCnnE82zxoHDbGa+9Zqb5FZvDVvgu/AkiBkEvEYPWGrx645a AlNFse1KeR2viwsENMLQ9/AZQZwkBPp7cNSnXlx8UVWOL2W89L2JZkmEJfIs5yOyK6Rv1mQu2OVcrYrL oM1OlbGYnQVvwHWDB8vFWXVrcSUkImnFY5pkbqVfZb NmwUIUYUih+3eEQgrgcii7aSz8AHWshCBwJiigZTWVFeuqIGbTseJEr3UyjV4HdpQYzowQ9MlCdRl8m8 L7UU9GuhysxyJi+ujXaXys433HsbQi2KU/AS0Yit+5YOoagyPWcrUdWhow+I2r/DFcvdXVGZbNtJqy0B Joaquín+7nQwWE6IcigR7LUG15bR9IErr3vrRGly4eNvH [file] steel roller/RDkUlUz3J/hl4giZD8saXlFDCdEEWjnvsooC1WGohnVOs1oIkv1zvOC3xsycA261TKGTHs2fL2wx [file] [id number]== ID Date Data Source [id number] 07/22/2020 11:50:07 AM EDT [facility] MR LUMBAR SPINE WITHOUT CONTRAST [id number] NAL RESULTInterpreted by:Sly Hickey MBBCHOERIC CLINICAL INFORMATION: Eval for etiology of intracranial hypotension.TECHNIQUE: Multiplanar multi-sequential imaging of the lumbosacral spine was performed without intravenous contrast.COMPARISON: CT lumbar spine dated 06/16/2020..FINDINGS: VERTEBRAE: Lumbar lordosis is present. The vertebrae are normal in alignment. The vertebral bodies are normal in height. Age-appropriate fatty marrow changes are observed.CONUS MEDULLARIS: The conus medullaris is normal in morphology and terminates at L1. Abnormal signal is noted in the distal aspect of the thecal sac, could represent residual hemorrhage/debris.INDIVIDUAL LEVELS: No disc herniation, spinal stenosis or foraminal narrowing.IMPRESSION:No evidence of CSF leak. No acute pathology.Abnormal signal in the distal aspect of the thecal sac could represent residual hemorrhage/debris.This document has been electronically signed by Nir Lopes MD on 07/22/2020 11:47 AM Name Value Range Interpretation Code Description Data Alisson rce(s) Supporting Document(s) ID Date Data Source [id number] 07/21/2020 05:04:35 AM EDT [facility] Name Value Range Interpretation Code Description Data Alisson rce(s) Supporting Document(s) Leukocytes [#/volume] in Blood by Automated count 5.5 10*3/uL 4-10 [facility] Erythrocytes [#/volume] in Blood by Automated count 3.83 10*6/uL 4.6- 6.1 L [facility] Hemoglobin [Mass/volume] in Blood 10.7 g/dL 13.5-18 L [facility] Hematocrit [Volume Fraction] of Blood by Automated count 33.5 % 4 1-53 L [facility] Erythrocyte mean corpuscular volume [Entitic volume] by Auto mated count 87.3 fL 80-96 [facility] Erythrocyte mean corpuscular hemoglobin [Entitic mass] by Automated count 27.8 pg 27-33 [facility] Erythrocyte mean corpuscular hemoglobin concentration [Mass/volume] by Automated count 31.8 g/dL 32.0-36.0 [facility] E[facility] distribution width [Ratio] by Automated count 19.1 % 11.5-14.5 H [facility] Platelets [#/volume] in Blood by Automated count 245 10*3/uL 150-400 [facility] Differential cell count method - Blood [facility] Neutrophils/100 leukocytes in Blood by Automated count 47 % [facility] Lymphocytes/100 leukocytes in Blood by Automated count 34 % [facility] Monocytes/100 leukocytes in Blood by Automated count 15 % [facility] Eosinophils/100 leukocytes in Blood by Automated count 3 % [facility] Basophils/100 leukocytes in Blood by Automated count 1 % [facility] Neutrophils [#/volume] in Blood by Automated count 2.61 10*3/uL 1.8-7 .0 [facility] Lymphocytes [#/volume] in Blood by Automated count 1.86 10*3/uL 1.2-4 .0 [facility] Monocytes [#/volume] in Blood by Automated count 0.82 10*3/uL 0-0.8 H [facility] Eosinophils [#/volume] in Blood by Automated count 0.15 10*3/uL 0-0.5 [facility] Basophils [#/volume] in Blood by Automated count 0.03 10*3/uL 0-0.2 [facility] Nucleated erythrocytes/100 leukocytes [Ratio] in Blood by Automated count 0 /100{WBCs} 0-0 [facility] ID Date Data Source [id number] 07/21/2020 05:27:10 AM EDT [facility] Name Value Range Interpretation Code Description Data Alisson rce(s) Supporting Document(s) Bicarbonate [Moles/volume] in Serum 33 mmol/L 22-29 H [facility] Chloride [Moles/volume] in Serum or Plasma 96 mmol/L 98-107 L [facility] Creatinine [Mass/volume] in Serum or Plasma 0.54 mg/dL 0.70-1.20 L [facility] Glucose [Mass/volume] in Serum or Plasma 71 mg/dL 70-140 [facility] Potassium [Moles/volume] in Serum or Plasma 3.8 mmol/L 3.4-5.1 [facility] Sodium [Moles/volume] in Serum or Plasma 135 mmol/L 136-145 L [facility] Urea nitrogen [Mass/volume] in Serum or Plasma 6 mg/dL 6-20 [facility] Anion gap 3 in Serum or Plasma 6 mmol/L 8-15 L [facility] Osmolality of Serum or Plasma by calculation 275 mosm/kg 275-300 [facility] Creatinine/Urea nitrogen [Mass Ratio] in Serum or Plasma 12 [facility] Calcium [Mass/volume] in Serum or Plasma 9.2 mg/dL 8.6-10.0 [facility] Glomerular filtration rate/1.73 sq M pre dicted among non-blacks [Volume Rate/Area] in Serum or Plasma by Creatinine-based formula (MDRD) >6 0 [facility] Glomerular filtration rate/1.73 sq M pre dicted among blacks [Volume Rate/Area] in Serum or Plasma by Creatinine-based formula (MDRD) >60 [facility] ID Date Data Source [id number] 07/21/2020 05:27:10 AM [facility] Value Range Interpretation Code Description Data Alisson rce(s) Supporting Document(s) Magnesium [Mass/volume] in Serum or Plasma 1.7 mg/dL 1.6-2.6 [facility] ID Date Data Source [id number] 07/21/2020 05:27:10 AM [facility] Value Range Interpretation Code Description Data Alisson rce(s) Supporting Document(s) Phosphate [Mass/volume] in Serum or Plasma 4.0 mg/dL 2.5-4.5 [facility] ID Date Data Source [id number] 07/17/2020 09:54:30 AM [facility] Value Range Interpretation Code Description Data Alisson rce(s) Supporting Document(s) Leukocytes [#/volume] in Blood by Automated count 8.1 10*3/uL 4-10 [facility] Erythrocytes [#/volume] in Blood by Automated count 4.01 10*6/uL 4.6- 6.1 L [facility] Hemoglobin [Mass/volume] in Blood 11.0 g/dL 13.5-18 L [facility] Hematocrit [Volume Fraction] of Blood by Automated count 35.6 % 4 1-53 L [facility] Erythrocyte mean corpuscular volume [Entitic volume] by Auto mated count 88.7 fL 80-96 [facility] Erythrocyte mean corpuscular hemoglobin [Entitic mass] by Automated count 27.5 pg 27-33 [facility] Erythrocyte mean corpuscular hemoglobin concentration [Mass/volume] by Automated count 31.1 g/dL 32.0-36.0 [facility] E[facility] distribution width [Ratio] by Automated count 19.5 % 11.5-14.5 H [facility] Platelets [#/volume] in Blood by Automated count 313 10*3/uL 150-400 [facility] Differential cell count method - Blood [facility] Neutrophils/100 leukocytes in Blood by Automated count 68 % [facility] Lymphocytes/100 leukocytes in Blood by Automated count 22 % [facility] Monocytes/100 leukocytes in Blood by Automated count 8 % [facility] Eosinophils/100 leukocytes in Blood by Automated count 2 % [facility] Basophils/100 leukocytes in Blood by Automated count 0 % [facility] Neutrophils [#/volume] in Blood by Automated count 5.46 10*3/uL 1.8-7 .0 [facility] Lymphocytes [#/volume] in Blood by Automated count 1.82 10*3/uL 1.2-4 .0 [facility] Monocytes [#/volume] in Blood by Automated count 0.69 10*3/uL 0-0.8 [facility] Eosinophils [#/volume] in Blood by Automated count 0.13 10*3/uL 0-0.5 [facility] Basophils [#/volume] in Blood by Automated count 0.03 10*3/uL 0-0.2 [facility] Nucleated erythrocytes/100 leukocytes [Ratio] in Blood by Automated count 0 /100{WBCs} 0-0 [facility] ID Date Data Source [id number] 07/17/2020 10:24:06 AM EDT [facility] Name Value Range Interpretation Code Description Data Alisson rce(s) Supporting Document(s) Albumin [Mass/volume] in Serum or Plasma by Bromocresol green (BCG) dye binding method 3.0 g/dL 3.5-5.2 [facility] Bil[facility].total [Mass/volume] in Serum or Plasma 0.3 mg/dL <1.2 [facility] Calcium [Mass/volume] in Serum or Plasma 9.1 mg/dL 8.6-10.0 [facility] Chloride [Moles/volume] in Serum or Plasma 98 mmol/L 98-107 [facility] Creatinine [Mass/volume] in Serum or Plasma 0.55 mg/dL 0.70-1.20 L [facility] Glucose [Mass/volume] in Serum or Plasma 82 mg/dL 70-140 [facility] Alkaline phosphatase [Enzymatic activity/volume] in Serum or Plasma 276 U/L 40-129 H [facility] Potassium [Moles/volume] in Serum or Plasma 4.2 mmol/L 3.4-5.1 [facility] Protein [Mass/volume] in Serum or Plasma 7.6 g/dL 6.4-8.3 [facility] Sodium [Moles/volume] in Serum or Plasma 135 mmol/L 136-145 L [facility] Aspartate aminotransferase [Enzymatic activity/volume] in Serum or Plasma 24 U/L <40 [facility] Urea nitrogen [Mass/volume] in Serum or Plasma 6 mg/dL 6-20 [facility] Osmolality of Serum or Plasma by calculation 276 mosm/kg 275-300 [facility] Creatinine/Urea nitrogen [Mass Ratio] in Serum or Plasma 11 [facility] Bicarbonate [Moles/volume] in Serum 32 mmol/L 22-29 H [facility] Alanine aminotransferase [Enzymatic activity/volume] in Seru m or Plasma 44 U/L <41 H [facility] Anion gap 3 in Serum or Plasma 5 mmol/L 8-15 L [facility] Glomerular filtration rate/1.73 sq M pre dicted among non-blacks [Volume Rate/Area] in Serum or Plasma by Creatinine-based formula (MDRD) >6 0 [facility] Glomerular filtration rate/1.73 sq M pre dicted among blacks [Volume Rate/Area] in Serum or Plasma by Creatinine-based formula (MDRD) >60 [facility] Hospital ID Date Data Source [id number] 07/17/2020 10:24:06 AM [facility] Name Value Range Interpretation Code Description Data Alisson rce(s) Supporting Document(s) Magnesium [Mass/volume] in Serum or Plasma 1.6 mg/dL 1.6-2.6 [facility] ID Date Data Source [id number] 07/16/2020 05:55:34 AM [facility] Name Value Range Interpretation Code Description Data Alisson rce(s) Supporting Document(s) Albumin [Mass/volume] in Serum or Plasma by Bromocresol green (BCG) dye binding method 2.8 g/dL 3.5[facility]5.2 [facility] Bil[facility].total [Mass/volume] in Serum or Plasma 0.3 mg/dL <1.2 [facility] Calcium [Mass/volume] in Serum or Plasma 9.0 mg/dL 8.6-10.0 [facility] Chloride [Moles/volume] in Serum or Plasma 99 mmol/L 98-107 [facility] Creatinine [Mass/volume] in Serum or Plasma 0.51 mg/dL 0.70-1.20 L [facility] Glucose [Mass/volume] in Serum or Plasma 71 mg/dL 70-140 [facility] Alkaline phosphatase [Enzymatic activity/volume] in Serum or Plasma 308 U/L 40-129 H [facility] Potassium [Moles/volume] in Serum or Plasma 4.0 mmol/L 3.4-5.1 [facility] Protein [Mass/volume] in Serum or Plasma 7.4 g/dL 6.4-8.3 [facility] Sodium [Moles/volume] in Serum or Plasma 140 mmol/L 136-145 [facility] Aspartate aminotransferase [Enzymatic activity/volume] in Serum or Plasma 35 U/L <40 [facility] Urea nitrogen [Mass/volume] in Serum or Plasma 7 mg/dL 6-20 [facility] Osmolality of Serum or Plasma by calculation 286 mosm/kg 275-300 [facility] Creatinine/Urea nitrogen [Mass Ratio] in Serum or Plasma 14 [facility] Bicarbonate [Moles/volume] in Serum 29 mmol/L 22-29 [facility] Alanine aminotransferase [Enzymatic activity/volume] in Seru m or Plasma 62 U/L <41 H [facility] Anion gap 3 in Serum or Plasma 11 mmol/L 8-15 [facility] Glomerular filtration rate/1.73 sq M pre dicted among non-blacks [Volume Rate/Area] in Serum or Plasma by Creatinine-based formula (MDRD) >6 0 [facility] Glomerular filtration rate/1.73 sq M pre dicted among blacks [Volume Rate/Area] in Serum or Plasma by Creatinine-based formula (MDRD) >60 [facility] ID Date Data Source [id number] 07/14/2020 09:54:00 AM EDT [facility] XR ABDOMEN AP ABD SUPINE ONLY [id number] RESULTInterpreted by:TIANA ChandlerROCEDURE INFORMATION: Exam: XR Abdomen, 1 View Exam date and time: 07/14/2020 9:28 AM Age: 54 years old Clinical indication: Evaluate for sbo/ileus TECHNIQUE: Imaging protocol: XR of the abdomen. Views: Frontal supine view of the abdomen. 1 View. COMPARISON: CR XR ABDOMEN AP ABD SUPINE ONLY [id number] PORTABLE 07/09/2020 9:56 AM FINDINGS: Tubes, catheters and devices: Gastrostomy tube is present. Gastrointestinal tract: No dilated gas-filled loops of bowel. Gas is present in all the way to the rectum. Bones/joints: No acute osseous abnormality. IMPRESSION: No bowel obstruction or ileus. THIS DOCUMENT HAS BEEN ELECTRONICALLY SIGNED BY DOROTHY ALBA MDThis document has been electronically signed by Dorothy Alba MD on 07/14/2020 9:53 AM Name Value Range Interpretation Code Description Data Alisson rce(s) Supporting Document(s) ID Date Data Source [id number] 07/14/2020 09:50:44 AM EDT [facility] XR CHEST FRONTAL ONLY [id number] RESULTI nterpreted by:Da George, Miky Khan MDINDICATION: 54-year-old male with PICC line adjustment, please reevaluate.TECHNIQUE: Portable 60 degrees chest radiograph, 07/09/2020 2:50 PM.COMPARISON: Portable radiograph dated 07/09/2020 at 10:08 AM.FINDINGS: There is been interval readjustment of a right-sided PICC line with tip now terminating in the proximal SVC.Chest wall is unchanged. There is redemonstration of a left clavicular fracture. Mediastinal contours are unchanged. There is no evidence of pneumothorax. There is mild blunting of the costophrenic angles suggesting small bilateral pleural effusions.Redemonstration of stable opacities in region of the bilateral leonardo, likely representing chronic scarring. Linear opacities in the left lower lobe likely representing atelectasisIMPRESSION: Interval adjustment of right arm PICC line with tip now terminating in the proximal SVC.This document has been electronically signed by Da George MD on 07/14/2020 9:48 AM Name Value Range Interpretation Code Description Data Alisson rce(s) Supporting Document(s) ID Date Data Source [id number] 07/14/2020 12:01:50 PM [facility] Name Value Range Interpretation Code Description Data Alisson rce(s) Supporting Document(s) Glucose [Mass/volume] in Capillary blood by Glucometer 95 mg/dL 70- 140 [facility] ID Date Data Source [id number] 07/14/2020 07:47:34 AM [facility] Name Value Range Interpretation Code Description Data Alisson rce(s) Supporting Document(s) Leukocytes [#/volume] in Blood by Automated count 8.2 10*3/uL 4-10 [facility] Erythrocytes [#/volume] in Blood by Automated count 3.64 10*6/uL 4.6- 6.1 L [facility] Hemoglobin [Mass/volume] in Blood 10.4 g/dL 13.5-18 L [facility] Hematocrit [Volume Fraction] of Blood by Automated count 32.2 % 4 1-53 L [facility] Erythrocyte mean corpuscular volume [Entitic volume] by Auto mated count 88.5 fL 80-96 [facility] Erythrocyte mean corpuscular hemoglobin [Entitic mass] by Automated count 28.6 pg 27-33 [facility] Erythrocyte mean corpuscular hemoglobin concentration [Mass/volume] by Automated count 32.3 g/dL 32.0-36.0 [facility] E[facility] distribution width [Ratio] by Automated count 20.0 % 11.5-14.5 H [facility] Platelets [#/volume] in Blood by Automated count 321 10*3/uL 150-400 [facility] Differential cell count method - Blood [facility] Neutrophils/100 leukocytes in Blood by Automated count 62 % [facility] Lymphocytes/100 leukocytes in Blood by Automated count 29 % [facility] Monocytes/100 leukocytes in Blood by Automated count 8 % [facility] Eosinophils/100 leukocytes in Blood by Automated count 1 % [facility] Basophils/100 leukocytes in Blood by Automated count 0 % [facility] Neutrophils [#/volume] in Blood by Automated count 5.01 10*3/uL 1.8-7 .0 [facility] Lymphocytes [#/volume] in Blood by Automated count 2.41 10*3/uL 1.2-4 .0 [facility] Monocytes [#/volume] in Blood by Automated count 0.65 10*3/uL 0-0.8 [facility] Eosinophils [#/volume] in Blood by Automated count 0.11 10*3/uL 0-0.5 [facility] Basophils [#/volume] in Blood by Automated count 0.02 10*3/uL 0-0.2 [facility] Nucleated erythrocytes/100 leukocytes [Ratio] in Blood by Automated count 0 /100{WBCs} 0-0 [facility] ID Date Data Source [id number] 07/14/2020 09:00:47 AM EDT [facility] Name Value Range Interpretation Code Description Data Alisson rce(s) Supporting Document(s) Bicarbonate [Moles/volume] in Serum 30 mmol/L 22-29 H [facility] Chloride [Moles/volume] in Serum or Plasma 97 mmol/L 98-107 L [facility] Creatinine [Mass/volume] in Serum or Plasma 0.53 mg/dL 0.70-1.20 L [facility] Glucose [Mass/volume] in Serum or Plasma 62 mg/dL 70-140 L [facility] Potassium [Moles/volume] in Serum or Plasma 4.0 mmol/L 3.4-5.1 [facility] Sodium [Moles/volume] in Serum or Plasma 133 mmol/L 136-145 L [facility] Urea nitrogen [Mass/volume] in Serum or Plasma 7 mg/dL 6-20 [facility] Anion gap 3 in Serum or Plasma 6 mmol/L 8-15 L [facility] Osmolality of Serum or Plasma by calculation 272 mosm/kg 275-300 L [facility] Creatinine/Urea nitrogen [Mass Ratio] in Serum or Plasma 13 [facility] Calcium [Mass/volume] in Serum or Plasma 8.3 mg/dL 8.6-10.0 L [facility] Glomerular filtration rate/1.73 sq M pre dicted among non-blacks [Volume Rate/Area] in Serum or Plasma by Creatinine-based formula (MDRD) >6 0 [facility] Glomerular filtration rate/1.73 sq M pre dicted among blacks [Volume Rate/Area] in Serum or Plasma by Creatinine-based formula (MDRD) >60 [facility] ID Date Data Source [id number] 07/14/2020 09:00:47 AM EDT [facility] Name Value Range Interpretation Code Description Data Alisson rce(s) Supporting Document(s) Magnesium [Mass/volume] in Serum or Plasma 1.8 mg/dL 1.6-2.6 [facility] ID Date Data Source [id number] 07/14/2020 10:20:07 AM T [facility] Name Value Range Interpretation Code Description Data Alisson rce(s) Supporting Document(s) Albumin [Mass/volume] in Serum or Plasma by Bromocresol green (BCG) dye binding method 2.7 g/dL 3.5-5.2 L [facility] Bilirubin.total [Mass/volume] in Serum or Plasma 0.5 mg/dL <1.2 [facility] Bilirubin.direct [Mass/volume] in Serum or Plasma 0.2 mg/dL <0.3 [facility] Alkaline phosphatase [Enzymatic activity/volume] in Serum or Plasma 407 U/L 40-129 H [facility] Aspartate aminotransferase [Enzymatic activity/volume] in Serum or Plasma 184 U/L <40 H [facility] Alanine aminotransferase [Enzymatic activity/volume] in Seru m or Plasma 137 U/L <41 H [facility] Protein [Mass/volume] in Serum or Plasma 7.0 g/dL 6.4-8.3 [facility] Procedure Social History Code Duration Value Status Description Data Source(s ) Smoking 06/25/2021 12:00:00 PM EDT Smokes tobacco daily (findi ng) completed Current Every Day Smoker [employer] Alcohol intake 05/09/2021 12:00:00 AM EDT Current drinker of al cohol (finding) completed Current drinker of alcohol (finding) [facility] Tobacco use and exposure 05/09/2021 12:00:00 AM EDT Never used co mpleted Never used [facility] Smoking 05/09/2021 12:00:00 AM EDT Former smoker completed Former smoker [facility] Alcohol intake 04/09/2021 12:00:00 AM EDT Current non-d juan francisco of alcohol (finding) completed Current non-drinker of alcohol (finding) [facility] Smoking 04/08/2021 12:00:00 AM EDT Patient is a former smoker completed Patient is a former smoker [facility] ([facility] Alcohol intake 03/07/2021 12:00:00 AM EDT Current non-d juan francisco of alcohol (finding) completed Current non-drinker of alcohol (finding) [facility] Alcohol intake 02/26/2021 12:00:00 AM EDT Current non-d juan francisco of alcohol (finding) completed Current non-drinker of alcohol (finding) [facility] Alcohol intake 02/06/2021 12:00:00 AM EDT Current non-d juan francisco of alcohol (finding) completed Current non-drinker of alcohol (finding) [facility] Alcohol intake 10/22/2020 12:00:00 AM EST Current non-d juan francisco of alcohol (finding) completed Current non-drinker of alcohol (finding) [facility] Smoking 08/06/2020 12:00:00 AM EST Unknown if ever smoked comp leted Unknown if ever smoked [facility] Vital Signs ID Date Data Source UNK Name Value Range Interpretation Code Description Data Source(s) Systolic blood pressure 130 mm[Hg] 130 mm[Hg] M [facility] ([facility], ) Heart rate 86 /min 86 /min [facility] ([facility], ) Body weight 138.00 [lb_av] 138.00 [lb_av] MEDEN T ([facility], ) Diastolic blood pressure 90 mm[Hg] 90 mm[Hg] [facility] ([facility], ) Respiratory rate 16 /min 16 /min [facility] ( [facility], ) Systolic blood pressure 138 mm[Hg] 138 mm[Hg] [facility] Diastolic blood pressure 90 mm[Hg] 90 mm[Hg] [facility] Heart rate 76 /min 76 /min [facility] Oxygen saturation in Arterial blood by Pulse oximetry 98 % 98 % [facility] Body height 66 [in_i] 66 [in_i] PJ ([facility]) 5'6" Body weight 139.00 [lb_av] 139.00 [lb_av] MED[facility] T ([facility]) Body mass index (BMI) [Ratio] 22.4 kg/m2 22.4 k g/m2 [facility] [place] body weight 142 [lb_av] 142 [lb_av] [facility] ([facility]) Body weight 63.050 kg 63.050 kg [facility] ([facility]) Body surface area Derived from formula 1.71 m2 1.71 m2 [facility] ([facility]) Systolic blood pressure 124 mm[Hg] 124 mm[Hg] M EDENT ([facility]) Diastolic blood pressure 80 mm[Hg] 80 mm[Hg] [facility] ([facility]) Heart rate 88 /min 88 /min [facility] ([facility]) Respiratory rate 16 /min 16 /min [facility] ( [facility]) Body weight 133.00 [lb_av] 133.00 [lb_av] [facility] T ([facility]) Systolic blood pressure 112 mm[Hg] 112 mm[Hg] M [facility] ([facility]) sitting, regular cuff Body height 63 [in_i] 63 [in_i] [facility]) 5'3" Diastolic blood pressure 64 mm[Hg] 64 mm[Hg] [facility] ([facility]) sitting, regular cuff Systolic blood pressure 110 mm[Hg] 110 mm[Hg] M [facility] ([facility]) sitting Diastolic blood pressure 64 mm[Hg] 64 mm[Hg] [facility] ([facility]) sitting Body mass index (BMI) [Ratio] 23.6 kg/m2 23.6 k g/m2 [facility] ([facility]) Heart rate 92 /min 92 /min [facility] ([facility]) Regular Respiratory rate 16 /min 16 /min [facility] ( [facility]) Body mass index (BMI) [Ratio] 24.5 kg/m2 24.5 k g/m2 [facility] ([facility]) Body temperature 96.8 [degF] 96.8 [degF] [facility] ([facility] ) Body height 64.5 [in_i] 64.5 [in_i] [facility] ([facility] ) 5'4.50" Body weight 145.00 [lb_av] 145.00 [lb_av] MED[facility] T ([facility] ) Body weight 140.00 [lb_av] 140.00 [lb_av] [facility] ([facility] ) Body mass index (BMI) [Ratio] 22.6 kg/m2 22.6 k g/m2 [facility] ([facility] ) Body height 66 [in_i] 66 [in_i] [facility] ([facility] ) 5'6" Systolic blood pressure 124 mm[Hg] 124 mm[Hg] M EDENT ([facility], ) Diastolic blood pressure 80 mm[Hg] 80 mm[Hg] [facility] ([facility], ) Heart rate 88 /min 88 /min [facility] ([facility], ) Respiratory rate 16 /min 16 /min [facility] ( [facility], ) Body height 65 [in_i] 65 [in_i] [facility] ([facility], ) 5'5" Body weight 142.00 [lb_av] 142.00 [lb_av] MED[facility] T ([facility], ) Body mass index (BMI) [Ratio] 23.6 kg/m2 23.6 k g/m2 [facility] ([facility], ) [place] body weight 136 [lb_av] 136 [lb_av] [facility] T ([facility], ) Systolic blood pressure 120 mm[Hg] 120 mm[Hg] M EDENT ([facility], ) Diastolic blood pressure 90 mm[Hg] 90 mm[Hg] [facility] ([facility], ) Heart rate 80 /min 80 /min [facility] ([facility], ) Oxygen saturation in Arterial blood by Pulse oximetry 98 % 98 % [facility] Room Air Body temperature 96.6 [degF] 96.6 [degF] [facility] ([facility], ) Body height 66 [in_i] 66 [in_i] [facility] ([facility], ) 5'6" [place] body weight 142 [lb_av] 142 [lb_av] SRAVANI T ([facility], ) ID Date Data Source [id number] 07/29/2021 03:53:03 PM EDT [facility] Name Value Range Interpretation Code Description Data Source(s) TRANSFER FROM [facility] ID Date Data Source [id number] 05/27/2021 11:53:59 AM EDT [facility] Name Value Range Interpretation Code Description Data Source(s) TRANSFER FROM [facility] ID Date Data Source [id number] 04/16/2021 12:13:25 PM EDT [facility] Name Value Range Interpretation Code Description Data Source(s) TRANSFER FROM [facility] ID Date Data Source [id number] 03/14/2021 06:58:02 AM EDT [facility] Name Value Range Interpretation Code Description Data Source(s) WEIGHT RECORDED 141.54 lb 141.54 lb [facility] Body height Measured 66 in 66 in [facility] TRANSFER FROM [facility] ID Date Data Source [id number] 02/26/2021 02:24:[address] [facility] Value Range Interpretation Code Description Data Source(s) WEIGHT RECORDED 148 lb 148 lb [facility] Body height Measured 70 in 70 in [facility] ID Date Data Source [id number] 02/06/2021 05:00:30 PM EDT [facility] Name Value Range Interpretation Code Description Data Source(s) WEIGHT RECORDED 141.9 lb 141.9 lb [facility] ID Date Data Source [id number] 01/02/2021 04:12:05 PM EDT [facility] Name Value Range Interpretation Code Description Data Source(s) TRANSFER FROM [facility] ID Date Data Source [id number] 10/28/2020 12:38:49 PM EST [facility] Name Value Range Interpretation Code Description Data Source(s) WEIGHT RECORDED 135.58 lb 135.58 lb [facility] WEIGHT RECORDED 136.69 lb 136.69 lb [facility] Body height Measured 70 in 70 in [facility] TRANSFER FROM [facility] ID Date Data Source [id number] 09/08/2020 11:06:13 AM [facility] Name Value Range Interpretation Code Description Data Source(s) WEIGHT RECORDED 128.75 lb 128.75 lb [facility] WEIGHT RECORDED 123.9 lb 123.9 lb [facility] WEIGHT RECORDED 130.07 lb 130.07 lb [facility] WEIGHT RECORDED 129.85 lb 129.85 lb [facility] WEIGHT RECORDED 133.82 lb 133.82 lb [facility] Body height Measured 65 in 65 in [facility] TRANSFER FROM [facility] ID Date Data Source [id number] 08/04/2020 05:43:15 PM [facility] Name Value Range Interpretation Code Description Data Source(s) TRANSFER FROM Other Facility Other Facility [facility] ID Date Data Source [id number] 08/13/2020 04:17:43 PM [facility] Name Value Range Interpretation Code Description Data Source(s) WEIGHT RECORDED 127.65 lb 127.65 lb [facility] WEIGHT RECORDED 125.88 lb 125.88 lb [facility] WEIGHT RECORDED 132.06 lb 132.06 lb [facility] Body height Measured 65 in 65 in [facility] WEIGHT RECORDED 133.6 lb 133.6 lb [facility] WEIGHT RECORDED 126.1 lb 126.1 lb [facility] TRANSFER FROM Other Facility Other Facility [facility] ID Date Data Source [id number] 08/14/2020 09:31:26 AM [facility] Name Value Range Interpretation Code Description Data Source(s) WEIGHT RECORDED 127.65 lb 127.65 lb [facility] WEIGHT RECORDED 126.59 lb 126.59 lb [facility] WEIGHT RECORDED 123.02 lb 123.02 lb [facility] WEIGHT RECORDED 128.09 lb 128.09 lb [facility] WEIGHT RECORDED 121.91 lb 121.91 lb [facility] WEIGHT RECORDED 126.1 lb 126.1 lb [facility] WEIGHT RECORDED 125 lb 125 lb [facility] WEIGHT RECORDED 124.5 lb 124.5 lb [facility] WEIGHT RECORDED 127 lb 127 lb [facility] WEIGHT RECORDED 125.44 lb 125.44 lb [facility] WEIGHT RECORDED 131.61 lb 131.61 lb [facility] WEIGHT RECORDED 126.32 lb 126.32 lb [facility] WEIGHT RECORDED 132.94 lb 132.94 lb [facility] Body height Measured 65 in 65 in [facility] TRANSFER FROM [facility] ID Date Data Source [id number] 07/23/2020 01:31:12 AM EDT [facility] Name Value Range Interpretation Code Description Data Source(s) WEIGHT RECORDED 128.53 lb 128.53 lb [facility] WEIGHT RECORDED 123.46 lb 123.46 lb [facility] WEIGHT RECORDED 121.03 lb 121.03 lb [facility] WEIGHT RECORDED 121.25 lb 121.25 lb [facility] Body height Measured 65 in 65 in [facility] WEIGHT RECORDED 119.71 lb 119.71 lb [facility] WEIGHT RECORDED 125.88 lb 125.88 lb [facility] WEIGHT RECORDED 126.76 lb 126.76 lb [facility] WEIGHT RECORDED 124.34 lb 124.34 lb [facility] WEIGHT RECORDED 129.85 lb 129.85 lb [facility] WEIGHT RECORDED 128.09 lb 128.09 lb [facility] WEIGHT RECORDED 119.71 lb 119.71 lb [facility] WEIGHT RECORDED 120.59 lb 120.59 lb [facility] WEIGHT RECORDED 123.02 lb 123.02 lb [facility] WEIGHT RECORDED 125 lb 125 lb [facility] WEIGHT RECORDED 124.34 lb 124.34 lb [facility] WEIGHT RECORDED 127.21 lb 127.21 lb [facility] Body height Measured 65 in 65 in [facility] WEIGHT RECORDED 131.17 lb 131.17 lb [facility] WEIGHT RECORDED 131.61 lb 131.61 lb [facility] Patient Treatment Plan of Care Planned Activity Planned Date Details Description Data Source (s) Thiamine 100 MG Oral Tablet 06/23/2021 09:00:00 AM [facility] Acetaminophen 325 MG Oral Tablet 06/22/2021 01:42:36 PM [facility] Levetiracetam 500 MG Oral Tablet 05/10/2021 12:00:00 AM [facility] dextrose 50 % IV solution 25 mL 05/09/2021 10:58:15 AM [facility] Glucagon 1 MG Injection 05/09/2021 10:58:15 AM [facility] Glucose 0.417 MG/MG Oral Gel 05/09/2021 10:58:15 AM [facility] Acetaminophen 325 MG Oral Tablet 04/09/2021 08:06:32 AM [facility] Hydralazine Hydrochloride 20 MG/ML Injectable Solution 04/09/2021 08:06:32 AM [facility] ospital labetalol (TRANDATE) injection 10 mg 04/09/2021 08:06:32 AM [facility] oxcarbazepine 150 MG Oral Tablet 03/09/2021 12:00:00 AM [facility] OXcarbazepine (TRILEPTAL) tablet 450 mg 03/08/2021 02:30:00 PM [facility] Acetaminophen 325 MG Oral Tablet 03/07/2021 09:02:51 PM [facility] Hydralazine Hydrochloride 20 MG/ML Injectable Solution 03/07/2021 09:02:51 PM [facility] ospital labetalol (TRANDATE) injection 10 mg 03/07/2021 09:02:51 PM [facility] sennosides, JAIL 8.6 MG Oral Tablet 02/17/2021 12:00:00 AM [facility] Amitriptyline Hydrochloride 25 MG Oral Tablet 12/28/2020 12:00:00 A [facility] Aspirin 81 MG Delayed Release Oral Tablet 09/05/2020 12:00:00 AM [facility] Prednisone 5 MG Oral Tablet 09/05/2020 12:00:00 AM [facility] modafinil 200 MG Oral Tablet 09/05/2020 12:00:00 AM [facility] hypromellose 25 MG/ML Ophthalmic Solution 09/04/2020 12:00:00 AM [facility] ezetimibe 10 MG Oral Tablet 09/04/2020 12:00:00 AM [facility] Folic Acid 1 MG Oral Tablet 09/04/2020 12:00:[facility] 35.2 MG/ML Oral Solution 09/04/2020 12:00:00 AM [facility] Metoprolol Tartrate 25 MG Oral Tablet 09/04/2020 12:00:00 AM [facility] ropinirole 1 MG Oral Tablet 09/04/2020 12:00:00 AM [facility] Thiamine 100 MG Oral Tablet 09/04/2020 12:00:00 AM [facility] pantoprazole 2 mg/mL PO oral suspension 09/04/2020 12:00:00 AM [facility] oxcarbazepine 60 MG/ML Oral Suspension 09/04/2020 12:00:00 AM [facility] Dexamethasone 1 MG/ML / Neomycin 3.5 MG/ ML / Polymyxin B 21829 UNT/ML Ophthalmic Suspension 09/04/2020 12:00:00 AM [facility] Erythromycin 0.005 MG/MG Ophthalmic Ointment 09/04/2020 12:00:00 AM [facility] Docusate Sodium 10 MG/ML Oral Suspension 09/04/2020 12:00:00 AM [facility] Acetaminophen 325 MG Oral Tablet 09/04/2020 12:00:00 AM [facility] Acetaminophen 325 MG Oral Tablet 08/29/2020 09:30:00 AM [facility] Levocarnitine 330 MG Oral Tablet 08/06/2020 12:00:00 AM [facility] Valproic Acid 50 MG/ML Oral Solution 08/06/2020 12:00:00 AM [facility] 4 ML Labetalol hydrochloride 5 MG/ML Cartridge 07/31/2020 03:05:50 AM [facility] sennosides, JAIL 8.6 MG Oral Tablet 07/31/2020 12:00:00 AM [facility] pantoprazole 2 mg/mL PO oral suspension 07/31/2020 12:00:00 AM [facility] Ondansetron 4 MG Oral Tablet 07/31/2020 12:00:00 AM [facility] modafinil 100 MG Oral Tablet 07/31/2020 12:00:00 AM [facility] Metoclopramide 1 MG/ML Oral Solution 07/31/2020 12:00:00 AM [facility] hypromellose 25 MG/ML Ophthalmic Solution 07/31/2020 12:00:00 AM [facility] 0.4 ML Enoxaparin sodium 100 MG/ML Prefilled Syringe 020 12:00:00 AM [facility] COLLAGENASE 0.25 UNT/MG Topical Ointment 07/31/2020 12:00:00 AM [facility] Clotrimazole 10 MG Oral Lozenge 07/31/2020 12:00:00 AM [facility] Amantadine Hydrochloride 10 MG/ML Oral Solution 07/31/2020 12:00:00 AM [facility] Acetaminophen 32 MG/ML Oral Solution 07/31/2020 12:00:00 AM [facility] Thiamine 100 MG Oral Tablet 07/31/2020 12:00:00 AM [facility] ropinirole 1 MG Oral Tablet 07/31/2020 12:00:00 AM [facility] Prednisone 5 MG Oral Tablet 07/31/2020 12:00:00 AM [facility] Meclizine Hydrochloride 12.5 MG Oral Tablet 07/31/2020 12:00:00 AM [facility] Folic Acid 1 MG Oral Tablet 07/31/2020 12:00:00 AM [facility] ezetimibe 10 MG Oral Tablet 07/31/2020 12:00:00 AM [facility] Valproic Acid 50 MG/ML Oral Solution 07/31/2020 12:00:00 AM [facility] 1 ML Lorazepam 2 MG/ML Injection 07/30/2020 11:20:57 PM [facility] hypromellose 25 MG/ML Ophthalmic Solution 07/30/2020 09:00:00 PM [facility] Meclizine Hydrochloride 12.5 MG Oral Tablet 07/30/2020 08:23:10 AM [facility] sennosides, JAIL 8.6 MG Oral Tablet 07/09/2020 08:47:06 AM [facility] Prednisone 5 MG Oral Tablet 01/09/2019 12:00:00 AM [facility] Lidocaine Hydrochloride 40 MG/ML Topical Cream [facility] oxcarbazepine 600 MG Oral Tablet [facility] Sodium Phosphate, Dibasic 35.5 MG/ML / S odium Phosphate, Monobasic 96.4 MG/ML Enema [facility] Bisacodyl 10 MG Rectal Suppository [facility] Magnesium Hydroxide 80 MG/ML Oral Suspension [facility] Ascorbic Acid 500 MG Oral Tablet [facility] Tab-A-Martín/Beta Carotene Oral Tablet [facility] Cholecalciferol 1000 UNT Oral Tablet [facility] Zinc Gluconate 100 MG Oral Tablet [facility] modafinil 200 MG Oral Tablet [facility] Ceftriaxone 1000 MG Injection [facility] Meclizine Hydrochloride 25 MG Oral Tablet [facility] carvedilol 6.25 MG Oral Tablet [facility] Levetiracetam 250 MG Oral Tablet [facility] Methotrexate Sodium (METHOTREXATE HIGH DOSE) 25 MG/ML IJ SOLN [facility] One-Daily Multi Vitamins Oral Tablet [facility] Thiamine 100 MG Oral Tablet [facility] Hydroxyzine Hydrochloride 25 MG Oral Tablet [facility] 24 HR Divalproex Sodium 250 MG Extended Release Oral Tablet [facility] Rosuvastatin calcium 40 MG Oral Tablet [facility] ezetimibe 10 MG Oral Tablet [facility] Folic Acid 1 MG Oral Tablet [facility] ropinirole 0.5 MG Oral Tablet [facility] Loratadine 10 MG Oral Tablet [facility] Spironolactone 25 MG Oral Tablet [facility] Chlorthalidone 25 MG Oral Tablet [facility] Lisinopril 2.5 MG Oral Tablet [facility] 24 HR Divalproex Sodium 500 MG Extended Release Oral Tablet [facility] pregabalin 200 MG Oral Capsule [facility] Prednisone 5 MG Oral Tablet [facility] pantoprazole 20 MG Delayed Release Oral Tablet [facility] METOPROLOL TARTRATE PO [facility] Folic Acid 1 MG Oral Tablet [facility] modafinil 200 MG Oral Tablet [facility] ropinirole 1 MG Oral Tablet [facility]
[2021-09-10] MEDS: FOLIC ACID 1 MG TAB PO SCH (13:14)
[2021-09-10] MEDS: THIAMINE 100 MG TAB PO SCH (13:14)
[2021-09-10] MEDS: MULTIVITAMINS/MINERALS THERAP 1 TAB PO SCH (13:15)
[2021-09-10 16:45] VITALS: BP 122/85
== END 2021-09-10 17:22 | disposition home or self-care (01) ==
LOC: M ED 00:11
DX: Z04.6 Encounter for general psychiatric examination, requested by authority (principal); F10.129 Alcohol abuse with intoxication, unspecified; F31.9 Bipolar disorder, unspecified; Z79.899 Other long term (current) drug therapy; Z87.820 Personal history of traumatic brain injury

== ENCOUNTER 2021-09-20 10:57 | Inpatient (IN) | payer MEDICARE, OTHER ==
[~2021-09-20] VITALS: Ht 172.7 cm; Wt 65.9 kg
[2021-09-20] VITALS (45 sets, daily range): BP systolic 65–114; BP diastolic 47–70
[2021-09-20] MEDS ORDERED: EPINEPHrine 1MG/10ML SYRINGE 1.5IN IV STA ×2 (11:11→11:23)
[2021-09-20] MEDS ORDERED: NS 1,000 ML IV ONE ×2 (11:40→19:00)
[2021-09-20] MEDS ORDERED: NOREPINEPHRINE BITARTRATE 8 MG in D5W 492 ML IV SCH (11:55)
[2021-09-20 11:56] LABS: HEMATOCRIT 49.3 % (42.0-52.0); HEMOGLOBIN 13.6 g/dl (13.5-17.5); MEAN CORPUSCULAR HEMOGLOBIN 25.8 pg (27.0-33.0); MEAN CORPUSCULAR HGB CONC 27.6 g/dl (32.0-36.5); MEAN CORPUSCULAR VOLUME 93.5 fl (80.0-96.0); PLATELET COUNT, AUTOMATED 159 10^3/uL (150-450); RED BLOOD COUNT 5.27 10^6/uL (4.30-6.10); WHITE BLOOD COUNT 16.3 10^3/uL (4.0-10.0)
--- NOTE | 2021-09-20 11:59 | REP ---
INDICATION: arrest, history SDHs COMPARISON: 07/31/2021 TECHNIQUE: Axial noncontrast images from the skull base to the thoracic inlet with coronal reformations. This CT examination was performed using the following dose reduction techniques: Automated exposure control, adjustment of mA and/or kv according to the patient's size, and use of iterative reconstruction technique. FINDINGS: Patient is again noted to be status post intracranial surgical procedures including bilateral craniotomies and ventricular shunt placement extending into the lateral ventricle. Curvilinear high density along the right convexity underlying the craniotomy likely represents chronic postsurgical granulation changes. There is continued subdural collection primarily noted along the left convexity which is slightly decreased from prior examination as well as high density along the tentorium which may represent continued subacute subdural versus chronic change. The ventricles are relatively normal and without hydrocephalus or ventriculomegaly. No acute parenchymal hemorrhage or mass/mass effect identified. IMPRESSION: 1. Postsurgical changes as noted above including slight decrease in the chronic left subdural collection. 2. No obvious acute parenchymal hemorrhage, edema or mass/mass effect. <Electronically signed by Jason Hahn > 09/20/21 [id number]
[2021-09-20] MEDS ORDERED: NOREPINEPHRINE 4 MG/4 ML AMP As Ordered ONE (12:01)
--- NOTE | 2021-09-20 12:04 | REP ---
INDICATION: arrest COMPARISON: 1521 TECHNIQUE: Portable AP view of the chest FINDINGS: Nasogastric tube extends just beyond the diaphragm with the side port in the distal esophagus warranting advancement. Left-sided ventriculoperitoneal shunt appears stable. Mediastinum and cardiac silhouette are stable. Lung moore demonstrate diffuse chronic pleuroparenchymal changes. Superimposed airspace disease cannot definitively be excluded. IMPRESSION: 1. Nasogastric tube warrants advancement. 2. Chronic pleuroparenchymal changes. Subtle superimposed acute process cannot definitively be excluded. <Electronically signed by Jason Hahn > 09/20/21 1200
[2021-09-20 12:19] LABS: INR 2.02; PROTHROMBIN TIME 23.3 SECONDS (12.7-14.5)
[2021-09-20 12:42] LABS: ABG BASE EXCESS -24.5 (-2.0-2.0); ABG HCO3 8.9 MEQ/L (22.0-26.0); ABG O2 SATURATION 99.8 % (95.0-99.0); ABG PARTIAL PRESSURE CO2 47.9 mmHg (35.0-45.0); ABG PARTIAL PRESSURE O2 433.7 mmHg (75.0-100.0); ABG STANDARD HCO3 8.2 MEQ/L (22.0-26.0); ABG TOTAL CO2 10.4 MEQ/L (22.0-29.0)
[2021-09-20 12:46] LABS: ALBUMIN 2.5 GM/DL (3.2-5.2); ALT/SGPT 589 U/L (12-78); BILIRUBIN,DIRECT 0.1 MG/DL (0.0-0.2); BILIRUBIN,TOTAL 0.4 MG/DL (0.2-1.0); MAGNESIUM LEVEL 3.8 MG/DL (1.8-2.4); TOTAL PROTEIN 6.7 GM/DL (6.4-8.2)
[2021-09-20 12:48] LABS: ABG pH (ARTERIAL) 6.887 UNITS (7.350-7.450)
[2021-09-20 13:01] LABS: ETHYL ALCOHOL (ETHANOL) < 0.003 % (0.000-0.010)
[2021-09-20] MEDS ORDERED: MIDAZOLAM INJ 2MG/2ML VIAL (J2250 PER 1MG) IV PRN (13:25)
[2021-09-20] MEDS ORDERED: ASPI81TA26 PO (13:58)
[2021-09-20] MEDS ORDERED: VITA100T71 PO (13:58)
[2021-09-20] MEDS ORDERED: HOME MED LIST COMPLETE! XX SCH (14:00)
[2021-09-20] MEDS: NOREPINEPHRINE BITARTRATE 8 MG in D5W 492 ML IV SCH ×3 (14:08→21:36)
--- NOTE | 2021-09-20 14:11 | RO ---
OPERATIVE NOTE DATE OF OPERATION: 09/20/2021 PREOPERATIVE DIAGNOSIS: Respiratory failure. POSTOPERATIVE DIAGNOSIS: Respiratory failure. PROCEDURE: Insertion of triple lumen central venous catheter. Site is right femoral vein. SURGEON: Thanh Zambrano M.D. STREETCAR STARTER: ANESTHESIA: The procedure was performed emergently. DESCRIPTION OF PROCEDURE: After the right femoral area was prepped and draped in the usual sterile manner, the right femoral vein was easily cannulated with a large bore needle. In a modified Seldinger technique, a triple lumen central venous catheter was easily advanced. Good venous return was obtained from all three ports. Each port was then flushed. The line was then sutured in place and sterile dressing applied. No complications noted. The patient tolerated the procedure well.
[2021-09-20] MEDS: PANTOPRAZOLE 40MG VIAL (C9113 PER 1) IV SCH (14:13)
[2021-09-20 16:34] LABS: ABG BASE EXCESS -12.9 (-2.0-2.0); ABG HCO3 11.3 MEQ/L (22.0-26.0); ABG O2 SATURATION 99.7 % (95.0-99.0); ABG PARTIAL PRESSURE O2 298.6 mmHg (75.0-100.0); ABG STANDARD HCO3 14.9 MEQ/L (22.0-26.0); ABG pH (ARTERIAL) 7.289 UNITS (7.350-7.450)
[2021-09-20] MEDS: IPRATROPIUM 0.5MG/ALBUTEROL 2.5MG INH SOL UD 3ML (DUONEB) NEB SCH ×2 (16:38→20:04)
[2021-09-20 16:41] LABS: CK-MB VALUE MASS 119.8 NG/ML (<3.6); MB/CK RELATIVE INDEX 3.31 (< OR =4)
--- NOTE | 2021-09-20 16:50 | CCN ---
CRITICAL CARE ADMISSION NOTE DATE OF ADMISSION/VISIT: 09/20/2021 START TIME: 1245 STOP TIME: 1350 HISTORY OF PRESENT ILLNESS: I was called to the emergency room (ER) to attend Tuan Verdugo. The patient has been examined, the chart reviewed and I spoke at length with Dr. Fernández of the ER regarding him. In essence, this is a 56-year-old gentleman with a longstanding alcohol history. Earlier this year he had a subdural hematoma. He has an indwelling ventriculoperitoneal (MOVIE EDITOR) shunt for issues with his chronic subdural. Reportedly today, despite a DO NOT RESUSCITATE (DNR) order in place, he suffered an incident at home. Emergency medical services (EMS) was summoned. They were called for seizures, but when they arrived there, the patient was in full arrest. He then underwent advanced cardiovascular life support (ACLS) protocol. A Damion airway was then placed. He was brought to the ER. He was worked on for several hours. was contacted. Despite his previous DO NOT RESUSCITATE (DNR), she now requested that everything short of repeat resuscitation be employed. This was clarified by Dr. Fernández. She wishes continued support with mechanical ventilation and vasopressors as they are, but does not wish him to have repeat resuscitation efforts, should his heart stop again. On my arrival, he had a blood pressure of 170 systolic, heart rate of 110. Levophed is being weaned. He did not require any medications for intubation. At the request of the , he was intubated to replace the external airway being used. PHYSICAL EXAMINATION: He is completely unresponsive to all stimuli. Pupils are fixed and dilated. He does have occasional, what appear to be agonal respiratory effort, but no corneals, no cough or gag, and no response to noxious stimuli peripherally. The remainder of his exam shows his neurologic status to be as outlined above. Trachea is in the midline. CHEST: Clear. CARDIAC: Generally regular: Peripheral pulses palpable. No obvious edema. ABDOMEN: Soft. There are active bowel sounds, although they are hypoactive. No obvious organomegaly or masses. EXTREMITIES: No cyanosis or clubbing. NEUROLOGICALLY: As outlined above. LABORATORY DATA: Most recent blood gas shows a pH of 6.887, pCO2 of 47.9, a pO2 of 433.7. Sodium 136, potassium 3.0, chloride 101, CO2 16, BUN 10, creatinine 1.2. Bilirubin 0.1, AST 893, ALT 589, alkaline phosphatase 131, albumin 2.5. White blood cell count 16.3, hemoglobin 13.6, platelet count 159,000. ETOH is unremarkable at less than 0.003. COVID is negative. CT scan is reviewed. I cannot disagree with the dictated report regarding stable postoperative changes and he actually has a decline in his level of chronic subdural blood. Chest x-ray shows tube in good position. There may be some really hazy infiltrates. No pneumothorax. He has got significant cardiomegaly. There appears to be some chronic pleural parenchymal changes at the apices. Due to his Levophed still infusing, the central line was placed by myself in the right femoral vein, occupying less than 5 minutes time and will be dictated under separate cover. IMPRESSION: 1. Status post cardiac arrest. 2. History of seizures. 3. Longstanding history of alcohol abuse. 4. Indwelling ventriculoperitoneal (MOVIE EDITOR) shunt. 5. Chronic subdural hematoma. 6. DO NOT RESUSCITATE (DNR)/DO NOT INTUBATE (DNI) status. RECOMMENDATIONS: As per the wishes of his , he was intubated by the ER and we will support him short of a cardiac arrest. At this point, he has a profound underlying metabolic acidosis. There has been no evidence of seizure activity, so it is difficult to know what precipitated his event. Electrocardiogram (EKG) done by the ER is reviewed. It does show currently a heart rate of 69 with frequent ectopy. There are nonspecific ST-T wave abnormalities. There is what appears to be left posterior fascicular block. At this point, we will add empiric antibiotics. Cardiac enzymes will be sent. Lactate is pending. He will be assured to be adequately volume resuscitated, but currently kidney function is reasonable and he is making urine here in the ER, as he has a Tee in place. At this point, it appears as though he has suffered a profound neurologic injury with anoxic encephalopathy and we will repeat a CT scan in 24 hours. In the interim, we will assure adequate volume resuscitation. Ulcer and deep venous thrombosis (DVT) prophylaxis are in place. I will update his when new information becomes available. We will proceed as outlined above. I left the bedside at 1350 hours. Sixty-five minutes of critical care time was delivered at the bedside with less than five minutes time regarded in the delivery of procedures.
[2021-09-20] MEDS: PIPERACILLIN/TAZOBACTAM SOD 3.375 GM in D5W MINI-BAG PLUS 50 ML IV SCH ×2 (17:35→22:30)
[2021-09-20] MEDS: KCL 40MEQ IN D5/0.45NS 1000ML 1,000 ML IV SCH ×2 (17:35→21:10)
--- NOTE | 2021-09-20 18:16 | REP ---
INDICATION: ett placement COMPARISON: 09/20/2021, 07/17/2021 TECHNIQUE: Portable AP view of the chest FINDINGS: Endotracheal tube is at the magaly and warrants readjustment. Nasogastric tube and side port extends below the left hemidiaphragm in satisfactory position. The mediastinum and cardiac silhouette are stable and within normal limits for portable technique. The lung moore demonstrate chronic changes. Subtle superimposed acute process cannot definitively be excluded. IMPRESSION: 1. Endotracheal tube tip is at the magaly and warrants repositioning. 2. Chronic appearing pleuroparenchymal changes. Subtle superimposed acute process cannot be excluded. <Electronically signed by Jason Hahn > 09/20/21 [id number]
[2021-09-20] MEDS ORDERED: LORazepam 2 MG/ML VIAL IM STA (19:16)
[2021-09-20] MEDS ORDERED: LORazepam 2 MG/ML VIAL IV PRN (19:20)
[2021-09-20] MEDS ORDERED: levETIRAcetam INJection 1,000 MG in D5W 100 ML IV ONE (20:00)
[2021-09-20] MEDS: CHLORHEXIDINE GLUCONATE 0.12 % 15ML UDC (PERIDEX ORAL RINSE) MT SCH (20:19)
[2021-09-20 21:37] LABS: HEMATOCRIT 51.7 % (42.0-52.0)
[2021-09-20 21:45] LABS: HEMOGLOBIN 15.7 g/dl (13.5-17.5)
--- NOTE | 2021-09-20 21:47 | CCN ---
CRITICAL CARE NOTE DATE: 09/20/2021 START TIME: 1844 STOP TIME: 1924 SUBJECTIVE: I again attended Tuan Verdugo here in the Intensive Care Unit. Patient has been examined and chart reviewed. I spoke with the nurse at the bedside. He had decline in his blood pressure. He is now maxed out on Levophed. He was given an additional liter of saline bolus. He is not making any urine at this point. He was quite hypothermic and a warming blanket device has been employed. He is having oozing from his foraminal line site as well as from his nose. Blood pressure has responded to I.V. fluids. The nurse has spoken with his and I am attempting to contact her as well regarding his status. She did confirm to the nurse that no additional agents are to be added and that he is not to be further resuscitated. His first high sensitivity troponin is now back at 7,589 with a lactate of 14.9. Repeats of these are pending. PHYSICAL EXAMINATION: It appears that he is now having intermittent seizure activity with fluttering of the eyes. Intermittently he still remains completely unresponsive to all stimuli. Repeat electrolytes are currently pending. Repeat blood gas shows improvement in his pH to 7.289, pCO2 of 24 and pO2 of 298.6 on the same vent settings. The remainder of his exam is unchanged from several hours ago. THE MOST PRESSING PROBLEMS REQUIRING MY PRESENCE AT THE BEDSIDE: 1. Hypotension. 2. Suspected seizures. 3. Chronic subdural hematoma. At this point, I am now able to view his med list. It does include Keppra and we will reload him with it and place him on a maintenance dose. We will get a Keppra level. He is on several hypertensives at home and these will be held at this point. He is chronically on prednisone and I might give him stressed doses in view of this. I will attempt to contact his to give her an update. In view of this, his survival is highly unexpected, but for now we will continue our current level of support. Repeat troponins are pending. We will try to pursue echocardiogram tomorrow to assess his overall LV function after his presentation here today. We will proceed as outlined above. I left the bedside at 1925 hours. An additional 40 minutes of critical care time at the bedside not including procedures.
[2021-09-20 21:53] LABS: INR 3.34; PROTHROMBIN TIME 34.1 SECONDS (12.7-14.5)
[2021-09-20] MEDS ORDERED: ACETAMINOPHEN 325 MG/10.15 ML UDC GT PRN (21:55)
[2021-09-20] MEDS: HEPARIN SOD (PORCINE) 5000UNITS/ML 1ML VIAL/SYRINGE SC SCH (22:00)
[2021-09-20] MEDS ORDERED: VANCOMYCIN HCL 1,000 MG, VIAL MATE ADAPTER 1 EACH in NS 250 ML IV SCH (22:10)
[2021-09-20 22:16] LABS: CREATININE FOR GFR 2.43 MG/DL (0.70-1.30); GLOMERULAR FILTRATION RATE 35.5 (>56); POTASSIUM SERUM 4.9 MEQ/L (3.5-5.1)
[2021-09-20 22:23] LABS: MB/CK RELATIVE INDEX 2.48 (< OR =4)
[2021-09-20] MEDS: NS 1,000 ML IV SCH (22:56)
[2021-09-20] MEDS ORDERED: VANCOMYCIN HCL 500 MG in D5W MINI-BAG PLUS 100 ML IV ONE (23:00)
[2021-09-21] VITALS (99 sets, daily range): BP systolic 72–123; BP diastolic 44–77
[2021-09-21] MEDS: IPRATROPIUM 0.5MG/ALBUTEROL 2.5MG INH SOL UD 3ML (DUONEB) NEB SCH ×6 (00:13→20:17)
[2021-09-21] MEDS ORDERED: VANCOMYCIN HCL 750 MG, VIAL MATE ADAPTER 1 EACH in NS 250 ML IV SCH (02:00)
[2021-09-21] MEDS: NOREPINEPHRINE BITARTRATE 8 MG in D5W 492 ML IV SCH ×2 (02:07→06:10)
[2021-09-21] MEDS: MORPHINE 2 MG/ML 1ML VIAL (J2270) IV PRN ×3 (02:52→20:50)
[2021-09-21] MEDS: KCL 40MEQ IN D5/0.45NS 1000ML 1,000 ML IV SCH ×2 (03:58→16:28)
[2021-09-21] MEDS: NS 1,000 ML IV SCH (03:58)
[2021-09-21] MEDS: PIPERACILLIN/TAZOBACTAM SOD 3.375 GM in D5W MINI-BAG PLUS 50 ML IV SCH ×4 (04:38→22:33)
[2021-09-21] MEDS: HEPARIN SOD (PORCINE) 5000UNITS/ML 1ML VIAL/SYRINGE SC SCH ×3 (05:08→22:33)
[2021-09-21 05:44] LABS: HEMATOCRIT 50.4 % (42.0-52.0); HEMOGLOBIN 15.2 g/dl (13.5-17.5); MEAN CORPUSCULAR HEMOGLOBIN 25.8 pg (27.0-33.0); MEAN CORPUSCULAR HGB CONC 30.2 g/dl (32.0-36.5); MEAN CORPUSCULAR VOLUME 85.4 fl (80.0-96.0); WHITE BLOOD COUNT 10.8 10^3/uL (4.0-10.0)
[2021-09-21 06:26] LABS: PLATELET COUNT, AUTOMATED 96 10^3/uL (150-450)
[2021-09-21 06:33] LABS: ABG BASE EXCESS -17.2 (-2.0-2.0); ABG HCO3 9.1 MEQ/L (22.0-26.0); ABG O2 SATURATION 99.4 % (95.0-99.0); ABG PARTIAL PRESSURE CO2 24.2 mmHg (35.0-45.0); ABG PARTIAL PRESSURE O2 177.7 mmHg (75.0-100.0); ABG STANDARD HCO3 11.9 MEQ/L (22.0-26.0); ABG TOTAL CO2 9.8 MEQ/L (22.0-29.0)
[2021-09-21 06:37] LABS: ABG pH (ARTERIAL) 7.191 UNITS (7.350-7.450)
[2021-09-21 06:57] LABS: ALBUMIN 2.2 GM/DL (3.2-5.2); ATYPICAL LYMPH 2 % (0-5); BILIRUBIN,TOTAL 1.9 MG/DL (0.2-1.0); CALCIUM LEVEL 7.7 MG/DL (8.5-10.1); CREATININE FOR GFR 3.84 MG/DL (0.70-1.30); LYMPHOCYTES 16 % (16-44); METAMYELOCYTES 5 % (0-0); MONOCYTES 2 % (0-5); NEUTROPHILS 67 % (28-66); PHOSPHORUS LEVEL 2.5 MG/DL (2.5-4.9); PLATELET ESTIMATE DECREASED (NORMAL); POTASSIUM SERUM 3.7 MEQ/L (3.5-5.1); TOTAL PROTEIN 5.5 GM/DL (6.4-8.2)
[2021-09-21 06:58] LABS: ANISOCYTOSIS 1+; HYPOCHROMASIA 1+
--- NOTE | 2021-09-21 08:18 | REP ---
INDICATION: RESP FAILURE COMPARISON: 09/20/2021 TECHNIQUE: Portable AP view of the chest FINDINGS: The endotracheal tube appears to be at the magaly and requires repositioning. Nasogastric tube in satisfactory position. Extensive diffuse new bilateral infiltrates (left greater than right) have formed. Mediastinum and cardiac silhouette are stable. Ventriculoperitoneal shunt again noted. Skeletal structures stable. IMPRESSION: 1. Endotracheal tube requires repositioning. 2. Diffuse bilateral infiltrates (left greater than right). <Electronically signed by Jason Hahn > 09/21/21 0827
--- NOTE | 2021-09-21 08:41 | CCN ---
CRITICAL CARE NOTE DATE: 09/21/2021 START TIME: 629 STOP TIME: 708 SUBJECTIVE: I again attended Tuan Verdugo here in the progressive care/intensive care unit. Patient has been examined and chart reviewed. I spoke with the nurse at the bedside. He is on max dose Levophed. Mean arterial pressures varied from 61 to 68. He remains tachycardia with heart rate in the 130s and 150s. T max overnight 105 degrees, currently afebrile. He does at times overbreathe the ventilator. Currently he is making minimal urine. Most recent laboratories show a sodium of 138, potassium 3.7, chloride 109, bicarb 15, BUN 27, creatinine up to 3.84. Glucose 140. Lactic acid at 0155 this morning down to 9.8. Bilirubin 1.9, AST 3754, ALT 1265, alk phos 159, LDH 23, 625. Repeat high sensitivity troponin last evening up to 61,464. Blood gas done this morning on a PRVC of 18, tidal volume 400, PEEP of 5 and an FiO2 of 40% has a pH 7.191, pCO2 of 24.2 and a pO2 of 177.7. Cultures are pending. Chest x-ray also pending. OBJECTIVE: General: On exam, he has required no sedation. He is completely unresponsive to painful stimuli. No corneals, no cough and no gag on exam. He does at time overbreathe the ventilator. No witnessed seizure activity this morning. HEENT: Pupils are pinpoint and midline. Membrane are moist. Lines and tubes in good position. Chest: Shows diminished but symmetric expansion. There are occasional rhonchi, cleared with suctioning. There are some faint dependent crackles bilaterally. Cardiac exam is tachycardic, regular. Peripheral pulses markedly diminished, minimal edema. Abdomen: Mildly distended. Bowel sounds marked diminished. No obvious organomegaly or masses. Extremities: Show no cyanosis or clubbing. Neurologic: As outlined above. He is unresponsive to even noxious stimuli. The most pressing problems requiring my immediate presence at the bedside: 1. Profound metabolic acidosis. 2. Renal failure. 3. Hepatic insufficiency. 4. Coagulopathy. 5. Suspect significant anoxic encephalopathy, status post cardiac arrest. 6. History of coronary artery disease. 7. History of alcohol abuse. 8. Seizure disorder. 9. LEAD GENERATION REPRESENTATIVE shunt. 10. Aspiration pneumonia. 11. Respiratory failure on the basis of the above. At this point, he has had continued decline in his overall status. He has had a marked elevation in his troponin and I suspect much of our current difficulties are on the basis of cardiogenic shock. I had spoke with his yesterday regarding interventions and she was comfortable for where we were at at the moment. I will add supplemental bicarb in hopes of improving his acid-base disorder. I do not believe he would tolerate dialysis or even CRRT at this point. He has received no sedation. With the readdition of Christian, he has had no further seizure activity. He has not required any benzodiazepines for seizure disorder since yesterday evening. For now, I will continue his current antimicrobials. He is on ulcer and DVT prophylaxis. I suspect he also has significant shock liver. I will check an echocardiogram today to assess his overall LV function. My suspicion is that he has a profound anoxic injury and that he will not survive this hospitalization. If he has further decline in the rest of his parameters, then I believe we will have reached the point of futility and at that point, we will discuss his status further with his . At this point, we will proceed as outlined above. I left the bedside at 0709 hours. A total of 39 minutes of critical care delivered at the bedside not including procedures.
[2021-09-21] MEDS: PANTOPRAZOLE 40MG VIAL (C9113 PER 1) IV SCH (08:50)
[2021-09-21] MEDS: CHLORHEXIDINE GLUCONATE 0.12 % 15ML UDC (PERIDEX ORAL RINSE) MT SCH ×2 (08:50→20:24)
[2021-09-21] MEDS: levETIRAcetam INJection 500 MG in D5W MINI-BAG PLUS 100 ML IV SCH ×2 (08:50→20:24)
[2021-09-21] MEDS: SODIUM BICARBONATE 150 MEQ in D5W 1,000 ML IV SCH ×2 (09:27→20:24)
[2021-09-21] MEDS: NOREPINEPHRINE BITARTRATE 16 MG in D5W 484 ML IV SCH ×2 (09:40→17:20)
[2021-09-21] MEDS ORDERED: SODIUM BICARBONATE 8.4% INJ 50 ML SYRINGE As Ordered ONE (13:55)
[2021-09-21] MEDS ORDERED: SODIUM BICARBONATE 8.4% INJ 50 ML SYRINGE IV STA ×2 (14:00→17:05)
[2021-09-21] MEDS ORDERED: NS 500 ML IV ONE ×2 (14:00→19:05)
[2021-09-21 14:29] LABS: ABG BASE EXCESS -13.8 (-2.0-2.0); ABG HCO3 10.9 MEQ/L (22.0-26.0); ABG O2 SATURATION 98.8 % (95.0-99.0); ABG PARTIAL PRESSURE CO2 23.3 mmHg (35.0-45.0); ABG PARTIAL PRESSURE O2 125.7 mmHg (75.0-100.0); ABG STANDARD HCO3 13.9 MEQ/L (22.0-26.0); ABG TOTAL CO2 11.6 MEQ/L (22.0-29.0); ABG pH (ARTERIAL) 7.287 UNITS (7.350-7.450)
[2021-09-21 16:46] LABS: CALCIUM LEVEL 8.4 MG/DL (8.5-10.1); CREATININE FOR GFR 3.33 MG/DL (0.70-1.30); GLOMERULAR FILTRATION RATE 24.7 (>56); POTASSIUM SERUM 3.5 MEQ/L (3.5-5.1)
[2021-09-21] MEDS ORDERED: VASOPRESSIN INJ 20 UNITS/ML VIAL As Ordered ONE (17:08)
[2021-09-21] MEDS: VASOPRESSIN INJ 20 UNITS in NS 499 ML IV SCH (17:19)
[2021-09-21] MEDS ORDERED: POTASSIUM CHLORIDE 10% LIQ 20 MEQ/15 ML UDC PO ONE (19:15)
--- NOTE | 2021-09-21 22:47 | ECHO ---
ECHOCARDIOGRAM DATE OF PROCEDURE: 09/21/2021 Age: 56 Gender: Male Height: 173 cm Weight: 61 kg REFERRING PHYSICIAN: Dr. Thanh Zambrano INDICATION: Congestive heart failure MEASUREMENTS: IVS 1.1 cm LV 3.1 cm LVPW 1.1 cm LA 2.8 cm Aorta 3.1 cm IVC 2.3 cm FINDINGS: This study is of difficult technical quality. Patient is intubated on a ventilator. Underlying regular tachycardia with ventricular rate approximately 135 beats per minute. Left ventricle is normal size. Overall normal LV systolic function, I estimate EF approximately 65%-70%. No apparent segmental wall motion abnormality based on fair quality views. Right ventricle also appears to have grossly normal size and systolic function. Both atria appear normal. Aortic, mitral and tricuspid valves appear normal. There is a sclerotic change on the aortic valve, but mobility of cusps is preserved. Pulmonic valve was not seen. No pericardial effusion. Inferior vena cava is dilated, but almost completely collapses with inspiration. Aortic root is normal. Aortic arch and abdominal aorta were not well seen. Doppler interrogation reveals competent aortic and mitral valves. There is trace tricuspid insufficiency. Evaluation of diastolic function is inconclusive due to underlying tachycardia. CONCLUSIONS: 1. Study is of fair technical quality, underlying narrow complex tachycardia with ventricular rate around 135 beats per minute. 2. Normal LV size with normal LV systolic function and estimated LVEF 65%-70%. Unable to estimate diastolic function. 3. Normal RV size. 4. No significant valvular disease. 5. Probably mildly elevated central venous pressure, but unable to estimate pulmonary artery pressure.
[2021-09-22] VITALS (78 sets, daily range): BP systolic 61–178; BP diastolic 28–103
[2021-09-22] MEDS: IPRATROPIUM 0.5MG/ALBUTEROL 2.5MG INH SOL UD 3ML (DUONEB) NEB SCH ×5 (00:06→15:58)
[2021-09-22] MEDS: VASOPRESSIN INJ 20 UNITS in NS 499 ML IV SCH ×3 (00:48→15:37)
[2021-09-22 00:56] LABS: ALBUMIN 1.6 GM/DL (3.2-5.2); BILIRUBIN,TOTAL 1.8 MG/DL (0.2-1.0); CALCIUM LEVEL 6.2 MG/DL (8.5-10.1); CREATININE FOR GFR 4.51 MG/DL (0.70-1.30); GLOMERULAR FILTRATION RATE 17.4 (>56); MAGNESIUM LEVEL 1.7 MG/DL (1.8-2.4); POTASSIUM SERUM 4.7 MEQ/L (3.5-5.1)
[2021-09-22] MEDS: NOREPINEPHRINE BITARTRATE 16 MG in D5W 484 ML IV SCH ×3 (03:40→15:38)
[2021-09-22] MEDS: PIPERACILLIN/TAZOBACTAM SOD 3.375 GM in D5W MINI-BAG PLUS 50 ML IV SCH (03:49)
[2021-09-22 04:31] LABS: HEMATOCRIT 36.6 % (42.0-52.0); MEAN CORPUSCULAR HEMOGLOBIN 25.9 pg (27.0-33.0); MEAN CORPUSCULAR HGB CONC 30.6 g/dl (32.0-36.5); MEAN CORPUSCULAR VOLUME 84.5 fl (80.0-96.0); RED BLOOD COUNT 4.33 10^6/uL (4.30-6.10); WHITE BLOOD COUNT 12.7 10^3/uL (4.0-10.0)
[2021-09-22 04:37] LABS: HEMOGLOBIN 11.2 g/dl (13.5-17.5)
[2021-09-22 04:38] LABS: PLATELET COUNT, AUTOMATED 47 10^3/uL (150-450)
[2021-09-22 04:45] LABS: PROTHROMBIN TIME 56.5 SECONDS (12.7-14.5)
[2021-09-22 04:47] LABS: PARTIAL THROMBOPLASTIN TIME 113.6 SECONDS (25.9-37.0)
[2021-09-22 04:52] LABS: ATYPICAL LYMPH 2 % (0-5); EOSINOPHILS 1 % (0-3); LYMPHOCYTES 18 % (16-44); METAMYELOCYTES 15 % (0-0); MONOCYTES 4 % (0-5); MYELOCYTES 3 % (0-0); NEUTROPHILS 34 % (28-66)
[2021-09-22 04:53] LABS: ANISOCYTOSIS 1+; PLATELET ESTIMATE MARKED DECREASE (NORMAL)
[2021-09-22 04:54] LABS: BURR CELLS 1+; HYPOCHROMASIA 1+
[2021-09-22 04:57] LABS: INR 6.45
[2021-09-22] MEDS: SODIUM BICARBONATE 150 MEQ in D5W 1,000 ML IV SCH ×2 (05:05→13:51)
[2021-09-22] MEDS: HEPARIN SOD (PORCINE) 5000UNITS/ML 1ML VIAL/SYRINGE SC SCH (05:29)
[2021-09-22] MEDS: KCL 40MEQ IN D5/0.45NS 1000ML 1,000 ML IV SCH (05:46)
[2021-09-22 05:47] LABS: ALBUMIN 1.5 GM/DL (3.2-5.2); CALCIUM LEVEL 6.2 MG/DL (8.5-10.1); CREATININE FOR GFR 4.83 MG/DL (0.70-1.30); GLOMERULAR FILTRATION RATE 16.1 (>56); PHOSPHORUS LEVEL 6.4 MG/DL (2.5-4.9); POTASSIUM SERUM 5.2 MEQ/L (3.5-5.1)
[2021-09-22] MEDS ORDERED: VANCOMYCIN INTERMITTENT/PULSE DOSING BY CLINICAL PHARMACIST PER DOSING PROTOCOL XX SCH (05:55)
[2021-09-22] MEDS ORDERED: VANCOMYCIN HCL 750 MG, VIAL MATE ADAPTER 1 EACH in NS 250 ML IV ONE (08:00)
--- NOTE | 2021-09-22 08:12 | REP ---
INDICATION: RESP FAILURE COMPARISON: 09/21/2021 TECHNIQUE: Portable AP view of the chest FINDINGS: Endotracheal tube now extends into the right mainstem bronchus and again requires repositioning. Nasogastric tube courses below left hemidiaphragm. Diffuse bilateral opacities suggesting infiltrates, consolidations, and pleural effusions appear increased from prior examination. No obvious pneumothorax. IMPRESSION: 1. Endotracheal tube extends into the right mainstem bronchus and again requires repositioning. 2. Increased bilateral pleuroparenchymal changes. <Electronically signed by Jason Hahn > 09/22/21 0833
[2021-09-22] MEDS: CHLORHEXIDINE GLUCONATE 0.12 % 15ML UDC (PERIDEX ORAL RINSE) MT SCH (09:05)
[2021-09-22] MEDS: PANTOPRAZOLE 40MG VIAL (C9113 PER 1) IV SCH (09:05)
[2021-09-22] MEDS: levETIRAcetam INJection 500 MG in D5W MINI-BAG PLUS 100 ML IV SCH (09:05)
[2021-09-22] MEDS ORDERED: PIPERACILLIN/TAZOBACTAM SOD 2.25 GM in D5W MINI-BAG PLUS 50 ML IV SCH (10:00)
[2021-09-22] MEDS ORDERED: PIPERACILLIN/TAZOBACTAM SOD 3.375 GM in D5W MINI-BAG PLUS 50 ML IV SCH (10:00)
--- NOTE | 2021-09-22 10:16 | CCN ---
CRITICAL CARE NOTE DATE: 09/22/2021 START TIME: 909 STOP TIME: 943 SUBJECTIVE: I again attended Tuan Verdugo here in the Intensive Care Unit. Patient has been examined and chart reviewed and I spoke at length with the nurse at the beside. He is now on an additional vasopressor. He is maxed out on Levophed and now has Vasopressin running as well. We were unable to obtain a peripheral oxygen saturation. Current blood pressure 122 systolic. T-max overnight 100.4, blood pressure variable and is currently as stated above. Heart rate is about 104 with a sinus mechanism. He does overbreathe the ventilator at times, currently respiratory rate between 18 and 20. We were unable to get a blood gas this morning. Other laboratories shows white blood cell count of 12.7, hemoglobin 11.2, platelet count down to 47,000. There are 34% segs, 23% bands, 15% metamyelocytes this morning. Sodium 133, potassium is 5.2, chloride 97, CO2 22, BUN 29, creatinine up to 4.83. Glucose of 81. Bilirubin elevated to 2.0, AST 7386 with an ALT of 2926, LDH of 5820. CK 12,342 which is diminished. INR this morning up to 6.45 and FFP was given. A chest x-ray shows progressive bilateral infiltrates. OBJECTIVE: On exam, he remains intubated, mechanically ventilated. He has not required any sedation since admission and did not require sedation even for his intubation. He remains completely unresponsive to all stimuli. Pupils are midpoint and fixed. He has no cough, no corneals and no gag. He remains unresponsive to all noxious stimuli. Chest shows bilateral rhonchi. Expansion diminished and symmetric. No focal adventitious breath sounds are identified. Cardiac exam: Distant but regular. Peripheral pulses are markedly diminished. Edema is unchanged. Abdomen is soft, diminished bowel sounds. Extremities showed no cyanosis or clubbing. Neurologically, he is unresponsive as outlined above. An echocardiogram shows good LV function without any wall motion abnormalities. Appears to be normal right sided function. Most pressing problems requiring my presence at the bedside: 1. Anoxic encephalopathy. 2. Respiratory failure on the basis of above. 3. Underlying seizure disorder. 4. Thrombocytopenia. 5. Coagulopathy most likely secondary to hepatic dysfunction. 6. Suspect shock liver on top of chronic alcohol use. 7. Aspiration pneumonia. His did come in to visit last evening as I had her notified by the nursing staff of the decline in his status and the need for an additional vasopressor. He is already a DNR. The nurse tells me that the is contemplating comfort measures care and withdrawal of support and I have a call to her this morning but there was no answer at her home. There is no additional number for which to contact her. In the interim, we will repeat a CT scan of his head to compare to his presentation one. At this point, he is maxed out on two separate vasopressors. He is already on broad spectrum antimicrobials in the form of Zosyn and Vancomycin. These will be dose adjusted for his renal function. Blood cultures have no growth to date. At this point, I believe his IMPROVEMENT SPEC injury is unrecoverable. He has had no further seizures since the day of admission. 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 I have a call out to his . I would agree that withdrawal of care and comfort care is certainly the most appropriate. I do await the CT scan of his head for confirmation but regardless of the findings, based on his clinical exam, I believe withdrawal and comfort care is appropriate. I await word from his . I left the bedside at 0944 hours. A total of 34 minutes of critical care time at the bedside not including procedures.
[2021-09-22 10:57] LABS: ABG BASE EXCESS -13.5 (-2.0-2.0); ABG HCO3 16.8 MEQ/L (22.0-26.0); ABG PARTIAL PRESSURE CO2 62.9 mmHg (35.0-45.0); ABG STANDARD HCO3 12.8 MEQ/L (22.0-26.0); ABG TOTAL CO2 18.7 MEQ/L (22.0-29.0); ABG pH (ARTERIAL) 7.045 UNITS (7.350-7.450)
[2021-09-22 10:58] LABS: ABG PARTIAL PRESSURE O2 19.4 mmHg (75.0-100.0)
[2021-09-22 11:29] LABS: ABG BASE EXCESS -12.7 (-2.0-2.0); ABG PARTIAL PRESSURE CO2 42.1 mmHg (35.0-45.0); ABG PARTIAL PRESSURE O2 112.4 mmHg (75.0-100.0); ABG STANDARD HCO3 14.4 MEQ/L (22.0-26.0); ABG TOTAL CO2 16.3 MEQ/L (22.0-29.0); ABG pH (ARTERIAL) 7.171 UNITS (7.350-7.450)
--- NOTE | 2021-09-22 13:08 | CCN ---
CRITICAL CARE NOTE DATE: 09/22/2021 START TIME: 1125 STOP TIME: 1145 I again attended Tuan Verdugo here in the Intensive Care Unit. Patient has been examined. Chart reviewed. I spoke at length with his by phone. He is now maxed out on two vasopressors. Blood pressure occasionally into the 60s. He is having cardiac rhythm instabilities with changing of his axis and widening of his QRS complexes. I was able to speak with Mrs. Verdugo. She confirms to me that she is ready to withdrawal support and provide comfort measures care. She would like to be able to be here with him, and I think that is very appropriate. She has a son here in [facility] that she would like to bring with her who is in his thirties. The young son of 13 unfortunately I do not believe is allowed to visit under State regulations. She has a soon in [place] that she would like to FaceTime from the room, and I think that is very appropriate. She does understand, however, that given his instability he may not last until this afternoon which is the earliest she can get here, but she will do her best to try to get here earlier. Her questions regarding his care were answered. I left the bedside at 1145 hours. An additional 20 minutes of critical care time was at the bedside not including procedures.
[2021-09-22] MEDS ORDERED: NS 500 ML IV ONE ×2 (16:00→16:10)
[2021-09-22] MEDS ORDERED: LORazepam 2 MG/ML VIAL IV PRN (16:30)
[2021-09-22] MEDS ORDERED: MORPHINE 2 MG/ML 1ML VIAL (J2270) IV PRN (16:30)
[2021-09-22] MEDS ORDERED: SCOPOLAMINE 1MG TRANSDERMAL PATCH TOP PRN (16:30)
[2021-09-22] MEDS ORDERED: MORPHINE 10MG/0.5ML ORAL CONCENTRATE SOLUTION U/D SL PRN (16:30)
[2021-09-22] MEDS: MORPHINE 2 MG/ML 1ML VIAL (J2270) IV PRN (16:38)
--- NOTE | 2021-09-23 09:51 | DSES ---
DISCHARGE SUMMARY DATE OF ADMISSION: 09/20/2021 DATE OF DISCHARGE/EXPIRATION: 09/22/2021 CONDITION ON DISCHARGE: . PRINCIPAL DIAGNOSES: 1. Anoxic encephalopathy secondary to cardiopulmonary arrest. 2. Seizure disorder. 3. Status post cardiopulmonary arrest. 4. Longstanding previous history of alcohol abuse. 5. 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 6. Chronic subdural hematoma. 7. Acute kidney injury. 8. Aspiration pneumonia. 9. Sepsis. PROCEDURES: 1. Endotracheal intubation. 2. Mechanical ventilation. 3. Insertion of triple lumen central venous catheter. HISTORY: Mr. Verdugo was a 56-year-old gentleman with longstanding history of seizure disorder. He was having seizures the day of presentation. He was found on the floor by his in cardiopulmonary arrest. After several hours of resuscitation, eventually pulse and blood pressure were able to be obtained. Although he was a previous DNR, his requested attempts at resuscitation stopping short of resuscitation once his cardiac rhythm would stop. Physical exam at the time of presentation showed him to be completely unresponsive. He required no sedating medication to be intubated by the ER. At the time, his pupils were fixed. He was unresponsive to painful stimuli. He did overbreathe the ventilator but had no cough, no corneal reflexes, and no gag reflex. Chest showed scattered rhonchi with symmetric expansion. Cardiac exam was generally regular. Peripheral pulses were palpable. No edema. Abdomen was soft with active bowel sounds. Extremities without cyanosis or clubbing. Neurologically he was completely unresponsive. HOSPITAL COURSE: He was admitted to the Intensive Care Unit. Due to his x-ray showing what appeared to be acute aspiration, he was placed on empiric antimicrobials. He did have some seizures early on felt to be a combination of not only his chronic seizures but most likely on the basis of significant anoxic injury. He was loaded with Keppra. He received one dose of Ativan that day. He had progressive decline in his blood pressure. He was well resuscitated. He was maxed out on Levophed. Vasopressin was added. Multiple conversations were had with his . He remained completely unresponsive. He had worsening kidney function. then requested he be converted to comfort measures care as clearly based on exam he had an unrecoverable neurologic injury. Pursuant to her wishes, he was made comfort measures care on 09/22/2021 and at 1655 hours. For pertinent laboratories, please refer to the hospital record.
--- NOTE | 2021-09-23 15:59 | ECGEPIP ---
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
--- NOTE | 2021-09-23 19:35 | ECGEPIP ---
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 flutter replaced junctional rhythm with PVC's Electronically Signed on 09-23-2021 19:34:47 EST by Seema Shields
== END 2021-09-22 16:53 | disposition expired | DRG 296 ==
LOC: M ED 10:57 → EDBD 10:57 → M ED INP 13:24 → ENRESERV 14:03 → M PCU 15:58
PROVIDERS: ADMIT Internal Medicine Pulmonary Disease; ATTEND Internal Medicine Pulmonary Disease
PROC: 06HM33Z Insertion of Infusion Device into Right Femoral Vein, Percutaneous Approach (ICD-10-PCS; principal; 2021-09-20)
PROC: 0BH17EZ Insertion of Endotracheal Airway into Trachea, Via Natural or Artificial Opening (ICD-10-PCS; 2021-09-20)
PROC: 5A1945Z Respiratory Ventilation, 24-96 Consecutive Hours (ICD-10-PCS; 2021-09-20)
DX: I46.9 Cardiac arrest, cause unspecified (principal); J69.0 Pneumonitis due to inhalation of food and vomit; J96.90 Respiratory failure, unspecified, unspecified whether with hypoxia or hypercapnia; K72.00 Acute and subacute hepatic failure without coma; I62.03 Nontraumatic chronic subdural hemorrhage; A41.9 Sepsis, unspecified organism; E87.2 Acidosis; G93.1 Anoxic brain damage, not elsewhere classified; D68.4 Acquired coagulation factor deficiency; N17.9 Acute kidney failure, unspecified; G40.909 Epilepsy, unspecified, not intractable, without status epilepticus; Z51.5 Encounter for palliative care; Z66 Do not resuscitate; F10.10 Alcohol abuse, uncomplicated; D69.6 Thrombocytopenia, unspecified; I44.5 Left posterior fascicular block; R68.0 Hypothermia, not associated with low environmental temperature; I95.9 Hypotension, unspecified; I25.10 Atherosclerotic heart disease of native coronary artery without angina pectoris; R57.0 Cardiogenic shock; Z98.2 Presence of cerebrospinal fluid drainage device